=== PATIENT | male | born 1975 | race Caucasian/White ===

== ENCOUNTER 2020-12-27 17:52 | Emergency (ER) | payer OTHER, SELFPAY ==
--- NOTE | ~2020-12-27 | XR_ITS ---
EXAMINATION: XR FOOT, RIGHT CLINICAL INFORMATION: Question of osteomyelitis COMPARISON: None TECHNIQUE: AP, lateral, and oblique views of the right foot. FINDINGS: Mild hallux valgus is present. Vascular calcifications are seen. Some minimal degenerative changes are present in the midfoot. No bony destructive areas are seen to suggest the presence of osteomyelitis. XR/XR foot RT min 3V IMPRESSION: No evidence of osteomyelitis.
[2020-12-27 18:14] VITALS: BP 132/78; BP 158/93; PULSE 79; PULSE 89; RESP 18; TEMP 37.3; O2SAT 100; O2SAT 99; BMI 31.7
--- NOTE | 2020-12-27 19:42 | ED_ITS ---
HPI - Skin/Abscess/Foreign Bdy General Chief complaint: Skin/Abscess/Foreign Body Stated complaint: foot pain Time Seen by Provider: 12/27/20 18:26 History of Present Illness HPI narrative: Patient is a diabetic who noticed redness and some tenderness around the callus in his right foot, no fever no chills no other symptoms no injury, he has not seen a cabana attendant since COVID and this callus developed over the last year but the redness over the last 2-3 days, no fever no chills no join t pains Related Data Previous Rx's Medication Instructions Recorded cefuroxime axetil 500 mg PO Q12H 7 Days #14 tab 12/27/20 doxycycline hyclate 100 mg PO BID 7 Days #14 cap 12/27/20 Allergies Allergy/AdvReac Type Severity Reaction Status Date / Time amoxicillin [AMOXICILLIN] Allergy Severe ANAPHYLAXIS Verified 12/27/20 20:19 acetaminophen [From TYLOX] Allergy Intermediate ITCHING Verified 12/27/20 20:19 hydrocodone [HYDROCODONE] Allergy Unknown UNKNOWN Verified 12/27/20 20:19 From TYLOX Allergy Intermediate ITCHING Uncoded 06/17/20 16:22 Review of Systems Review of Systems: Positive for right foot redness and the right foot callus Negatives are no fever no chills no dizziness no weakness no confusion no headache no shortness of breath no joint pains no no weakness no foreign body no injury PMFSH Past Medical History Source: nursing notes reviewed Medical History (Updated 12/28/20 @ 00:01 by Malvin Nguyen) Anxiety Diabetes type 2, controlled High cholesterol HTN (hypertension) Right foot infection Social History Social History Smoking Status: Current every day smoker Substance Use Type: Marijuana Physical Exam Vital Signs: Vital Signs: Last Vital Signs Temp 99.2 F 12/27/20 18:14 Pulse 72 12/27/20 20:23 Resp 16 12/27/20 20:23 BP 110/68 12/27/20 20:23 Pulse Ox 98 12/27/20 20:23 Body Mass Index 31.7 General appearance is no acute distress relaxed and cooperative Head is normocephalic atraumatic The neck is supple Respiratory no distress Exam of the right foot on the plantar forefoot there is a hard callus which is surrounded by erythema, the skin is otherwise intact the skin is red and warm and tender to the touch there is no discharge or fluctuance no evidence of abscess, there is no lymphangitis, range of motion is normal in all the toes and in the ankle, no joint swelling Course Course Course Narrative: X-ray show no evidence of gas or osteomyelitis or bony injury or destruction Patient is referred to wound clinic and started on antibiotics for cellulitis and will follow-up in 2-3 days with us here in the ER or wound clinic Discharge Plan Discharge Clinical Impression: Cellulitis Patient Disposition: Home, Self-Care Additional Instructions: Use antibiotic as directed Return in 2-3 days for a wound check Best plan is try to follow with Wound Clinic but if they are not available follow with your doctor in 3 days or return to the ER in 2-3 days for recheck Return to the ER immediately any time for spreading redness, worse pain and swelling, fever, any sign of worsening infection or any concerns Take probiotics with antibiotics to prevent antibiotic associated diarrhea Prescriptions: New cefuroxime axetil 500 mg tablet 500 mg PO Q12H 7 Days Qty: 14 RF: 0 doxycycline hyclate 100 mg capsule 100 mg PO BID 7 Days Qty: 14 RF: 0 Referrals: Phuong Ray PA [Physician [employer]] - 2 days (Diabetic with infected foot wound) Interventions: ED Discharge Assessment Last Done: 12/27/20 21:04 Discharge Date/Time: 12/27/20 21:06
[2020-12-27 20:23] VITALS: BP 110/68; PULSE 72; RESP 16; O2SAT 98
== END 2020-12-27 21:06 | disposition home or self-care (01) ==
PROVIDERS: Emergency Provider Emergency Medicine Emergency Medical Services; PCP Physician Assistant Medical
DX: L03.115 Cellulitis of right lower limb (principal); M79.671 Pain in right foot; E11.9 Type 2 diabetes mellitus without complications; E78.5 Hyperlipidemia, unspecified; I10 Essential (primary) hypertension; F17.200 Nicotine dependence, unspecified, uncomplicated; F12.90 Cannabis use, unspecified, uncomplicated
CPT/HCPCS: 73630; 99283; 99284

== ENCOUNTER 2021-01-04 13:12 | Outpatient (RCR) | payer OTHER, SELFPAY | END 2021-02-03 11:25 | disposition home or self-care (01) | LOC: HO.WCC 13:12 | PROVIDERS: Visit Provider Physician Assistant | DX: Z09 Encounter for follow-up examination after completed treatment for conditions other than malignant neoplasm (principal); E11.65 Type 2 diabetes mellitus with hyperglycemia; E11.51 Type 2 diabetes mellitus with diabetic peripheral angiopathy without gangrene; F17.210 Nicotine dependence, cigarettes, uncomplicated; Z86.31 Personal history of diabetic foot ulcer | CPT/HCPCS: 11042; 87071; 87147; 87205; 97597; 99202; 99212 ==

== ENCOUNTER 2021-01-12 10:49 | Emergency (ER) | payer OTHER, SELFPAY ==
--- NOTE | ~2021-01-12 | US_ITS ---
EXAMINATION: ULTRASOUND EXPLAIN NONVASCULAR. CLINICAL INFORMATION: Left calf pain, heard a pop COMPARISON: None TECHNIQUE: Left limited imaging of left lower extremity veins are performed. Patient declined DVT study. FINDINGS: No focal abnormality seen involving the left lower extremity veins. Imaging through the left popliteal fossa in the left calf reveals no significant abnormality. US/US extremity nonvascular pedersen IMPRESSION: Patient declined DVT study. Limited imaging through the left popliteal fossa and calf reveals no soft tissue abnormality. The veins appear patent.
[2021-01-12 11:58] VITALS: BP 91/72; PULSE 76; RESP 20; TEMP 36; O2SAT 97; BMI 31.0
[2021-01-12] MEDS: Cyclobenzaprine HCl 10 MG TABLET PO (13:35)
[2021-01-12] MEDS: Ibuprofen 800 MG TABLET PO (13:36)
[2021-01-12 13:52] LABS: Glucose Urine UA NEG (NEG); Leukocyte Esterase Urine NEG (NEG); Nitrite Urine NEG (NEG); PH 5.5 (5.0-8.0); Specific Gravity - Urine 1.025 (1.005-1.025); Urine Blood NEG (NEG); Urine Ketones NEG (NEG); Urine Protein NEG (NEG-TRACE)
[2021-01-12 13:55] LABS: Appearance Urine CLEAR; Color Urine YELLOW
--- NOTE | 2021-01-12 14:00 | ED_ITS ---
HPI - Extremity Problem General Chief complaint: Extremity Injury, Lower Stated complaint: FALL W/LEFT LEG PAIN Time Seen by Provider: 01/12/21 11:25 Source: patient Mode of arrival: ambulatory Limitations: no limitations History of Present Illness HPI Narrative: 46-year-old male presenting to the ED with complaints of left calf pain he reports ?I heard a pop? when I was walking on the stairs and since then eyes is been having pain. He also reports a separate complaints of foul- smelling urine. He denies any fevers, chills, abdominal pain, back pain, hematuria, increased urinary urgency/frequency, polyuria, polydipsia or abnormal penile discharge. Reports that he does not want to be tested for any STDs due to he has not been sexually active in over 20 years. Denies any recent travel, immobilization, estrogen usage, history of cancer, recent surgery, IV drug use. Patient denies any dizziness, lightheadedness, chest pain, shortness of breath, palpitations or lower extremity edema. MD Complaint: extremity pain Onset (ago): minute(s) (Prior to arrival) Pain Consistency: constant Location: left Quality: aching, dull and constant Radiation: none Relieving factors: nothing Exacerbating factors: weight bearing, walking and palpation Associated symptoms: denies other symptoms Related Data Previous Rx's Medication Instructions Recorded cefuroxime axetil 500 mg PO Q12H 7 Days #14 tab 12/27/20 doxycycline hyclate 100 mg PO BID 7 Days #14 cap 12/27/20 cyclobenzaprine 10 mg PO Q8H #10 tab 01/12/21 ibuprofen 800 mg PO Q8H PRN #14 tab 01/12/21 Allergies Allergy/AdvReac Type Severity Reaction Status Date / Time amoxicillin [AMOXICILLIN] Allergy Severe ANAPHYLAXIS Verified 12/27/20 20:19 acetaminophen [From TYLOX] Allergy Intermediate ITCHING Verified 12/27/20 20:19 hydrocodone [HYDROCODONE] Allergy Unknown UNKNOWN Verified 12/27/20 20:19 From TYLOX Allergy Intermediate ITCHING Uncoded 06/17/20 16:22 Review of Systems Review of Systems: Constitutional : No Weight loss, No Fever, No Chills, No Night Sweats, No Fatigue, No Malaise ENT/Mouth : No Hearing loss, No Ear Pain, No Nasal Congestion, No Sinus Pain, No Hoarseness, No sore throat, No Rhinorrhea, No Swallowing Difficulty Eyes: No Eye Pain, No Swelling, No Redness, No Foreign Body, No Discharge, No Vision Changes Cardiovascular : No Chest Pain, No SOB, No Dyspnea on Exertion, No Orthopnea, No Edema, No Palpitations Respiratory : No Cough, No Sputum, No Wheezing, No Smoke Exposure, No Dyspnea Gastrointestinal : No Nausea, No Vomiting, No Diarrhea, No Constipation, No abdominal Pain, No Hematochezia, No Melena Genitourinary : + Fourl smelling urine, no irregular bleeding, No Dysuria, No Urinary Frequency, No Hematuria, No Urinary Incontinence, No Urgency, No Flank Pain, No Urinary Flow Changes, No Hesitancy Musculoskeletal : + Left calf pain, No joint pain, No Myalgias, No Joint Swelling Skin : No Skin Lesions, No rash Neuro : No Weakness, No Numbness, No Paresthesias, No Loss of Consciousness, No Dizziness, No Headache Psych : No Anxiety/Panic, No Depression, No SI/HI/AH/VH, No Social Issues, Heme/Lymph: No Bruising, No Bleeding,No Lymphadenopathy Endocrine : No Polyuria, No Polydipsia, No Temperature Intolerance Yes all other systems are reviewed and are negative [facility] Past Medical History Attestation statement: The following information was validated with the patient. Medical History Anxiety Diabetes type 2, controlled High cholesterol HTN (hypertension) Right foot infection Social History Social History Smoking Status: Current every day smoker Substance Use Type: Marijuana Advance Directives: Yes Advance Directives Information Provided: No Advance Directives on File: No Physical Exam Vital Signs: Vital Signs: Last Vital Signs Temp 96.8 F 01/12/21 11:58 Pulse 76 01/12/21 11:58 Resp 20 01/12/21 11:58 BP 91/72 01/12/21 11:58 Pulse Ox 97 01/12/21 11:58 Body Mass Index 31.0 vital signs have been reviewed as normal and appeared to be correct. Blood pressure normal. Heart rate normal. Respiration rate normal. Temperature normal. Oxygen saturation normal. Appearance: Alert. Oriented X3. No acute distress. Head: Normal external exam. Normocephalic. Eyes: PERRLA. EOMI. Conjunctiva and sclera normal. Eyelids normal. ENT: Pharynx normal. Uvula midline. Moist mucous membranes. No trismus noted. No drooling noted. No muffled voice noted. Neck: Normal inspection. Neck supple. FROM. No adenopathy. No meningeal signs. CVS: Normal heart rate and rhythm. Heart sound normal. No murmurs noted. Pulses normal throughout. Respiratory: No respiratory distress. Painless inspiration. Breath sounds normal. No wheezes/rales/rhonchi noted. Chest nontender. No accessory muscle usage noted or decreased air movement noted. Abdomen: Soft and nontender. Nondistended. No guarding. No rigidity. Bowel sounds normal in all 4 quadrants. No distention noted. No organomegaly noted. No visible injury noted. No rebound tenderness. Negative Rovsing sign. Negative obturator's sign. Negative psoas sign. Negative Weber sign. Back: No CVA tenderness. Full range of motion noted. Skin: Skin warm and dry. Normal skin color. Normal skin turgor. No rashes/lesions/lacerations noted. Extremities: Patient with left calf tenderness. No pitting edema bilaterally. Otherwise all other Extremities exhibit normal range of motion and nontender. Negative Badillo's test. Patient's Achilles tendon is intact bilaterally. Neuro: Oriented X 3. No motor deficit. No sensory deficit. Reflexes normal. Vascular: Positive bilateral distal pedal pulses. Course Course Course Narrative: 46-year-old male presenting to the ED with complaints of left calf pain when walking on the stairs he heard a pop. Patient also reporting a separate complaint of foul-smelling urine. - he is refusing STD testing and is very adamant and rude about it starts screaming saying ?fuck you I do not have an STD . I tried to explain to him multiple times that he can have an untreated STD if he is having any foul- smelling urine and he is refusing therefore I told to follow-up with his primary care provider regarding this. Due to his UA was within normal limits. Ultrasound is negative for acute processes although patient declined DVT study. Will DC home with symptomatic treatment along with instructions to follow up with primary care provider. Patient understands agrees with this plan. MDM - Extremity (Nontraumatic) Lab Data Labs: Lab Results 01/12/21 Range/Units 13:39 Urine Color YELLOW Urine Appearance CLEAR Urine pH 5.5 (5.0-8.0) Ur Specific Crawford 1.025 (1.005-1.025) Urine Protein NEG (NEG-TRACE) MG/DL Urine Glucose (UA) NEG (NEG) MG/DL Urine Ketones NEG (NEG) MG/DL Urine Blood NEG (NEG) Urine Nitrite NEG (NEG) Ur Leukocyte Esterase NEG (NEG) Imaging Data Ultrasound of left lower extremity: Attestation: I personally reviewed and interpreted this imaging study as follows: Radiologist's impression: FINDINGS: No focal abnormality seen involving the left lower extremity veins. Imaging through the left popliteal fossa in the left calf reveals no significant abnormality. US/US extremity nonvascular pedersen IMPRESSION: Patient declined DVT study. Limited imaging through the left popliteal fossa and calf reveals no soft tissue abnormality. The veins appear patent. Discharge Plan Discharge Clinical Impression: Muscle spasm of right calf, Dysuria Patient Disposition: Home, Self-Care Instructions: Dysuria (ED), Muscle Spasm (ED) Additional Instructions: You reported you have foul-smelling urine although declined STD testing. I tried to explain to you that you could have an untreated STD from years ago even if your not sexually active at this time. Although you adamantly refused. Return if any new or worsening symptoms follow-up with her primary care provider. Prescriptions: New cyclobenzaprine 10 mg tablet 10 mg PO Q8H Qty: 10 RF: 0 ibuprofen 800 mg tablet 800 mg PO Q8H PRN (Reason: pain) Qty: 14 RF: 0 No Action cefuroxime axetil 500 mg tablet 500 mg PO Q12H 7 Days Qty: 14 RF: 0 doxycycline hyclate 100 mg capsule 100 mg PO BID 7 Days Qty: 14 RF: 0 Referrals: Physician,None [Primary Care Provider] - 2 days (Your PCP) Print Language: Bolivian
== END 2021-01-12 14:27 | disposition home or self-care (01) ==
PROVIDERS: Physician Assistant Medical; Emergency Provider Emergency Medicine Emergency Medical Services
DX: R30.0 Dysuria (principal); M62.831 Muscle spasm of calf; E11.9 Type 2 diabetes mellitus without complications; E78.5 Hyperlipidemia, unspecified; I10 Essential (primary) hypertension; F12.90 Cannabis use, unspecified, uncomplicated
CPT/HCPCS: 76882; 81003; 99284

== ENCOUNTER 2021-05-03 12:42 | Outpatient (RCR) | payer OTHER, SELFPAY | END 2021-05-03 14:07 | disposition home or self-care (01) | LOC: HO.WCC 12:42 | PROVIDERS: PCP Physician Assistant Medical; Visit Provider Physician Assistant | DX: E11.621 Type 2 diabetes mellitus with foot ulcer (principal); L97.529 Non-pressure chronic ulcer of other part of left foot with unspecified severity; E11.40 Type 2 diabetes mellitus with diabetic neuropathy, unspecified; L84 Corns and callosities; I10 Essential (primary) hypertension; F17.210 Nicotine dependence, cigarettes, uncomplicated | CPT/HCPCS: 99212 ==

== ENCOUNTER 2021-05-29 16:46 | Emergency (ER) | payer OTHER, SELFPAY ==
[2021-05-29 17:24] VITALS: BP 142/91; PULSE 73; RESP 16; TEMP 36.1; O2SAT 98; BMI 32.2
--- NOTE | 2021-05-29 18:50 | PC.NURSE ---
this patient in a wheelchair continues to push by the triage room yelling into triage stating I am going to jordan the shit out of this hospital , attempts to reason with the patient were unsuccessful. The patient is frustrated due to the wait to be seen. Patient also stated Let me guess, you have no staff, maybe you should just hire some more like everyplace else again, attempts to reason with the patient were unsuccessful.
--- NOTE | 2021-05-29 20:00 | ED.EXTPRO ---
HPI - Extremity Problem General Chief complaint: Extremity Problem Stated complaint: l foot bleeding Time Seen by Provider: 05/29/21 19:50 Source: patient Mode of arrival: ambulatory History of Present Illness HPI Narrative: 46-year-old male a past medical history of anxiety, diabetes, hyperlipidemia, hypertension, presenting to the ED complaining open blister to left foot since yesterday. Reports head callus to bottom of foot bed opened last night after walk. Noted area to be bleeding. Denies pain, numbness, tingling, weakness, fever Related Data Previous Rx's Medication Instructions Recorded cefuroxime axetil 500 mg tablet 500 mg PO Q12H 7 Days #14 tab 12/27/20 doxycycline hyclate 100 mg capsule 100 mg PO BID 7 Days #14 cap 12/27/20 cyclobenzaprine 10 mg tablet 10 mg PO Q8H #10 tab 01/12/21 ibuprofen 800 mg tablet 800 mg PO Q8H PRN #14 tab 01/12/21 Allergies Allergy/AdvReac Type Severity Reaction Status Date / Time amoxicillin [AMOXICILLIN] Allergy Severe ANAPHYLAXIS Verified 05/29/21 17:29 acetaminophen [From TYLOX] Allergy Intermediate ITCHING Verified 12/27/20 20:19 hydrocodone [HYDROCODONE] Allergy Unknown UNKNOWN Verified 05/29/21 17:29 From TYLOX Allergy Intermediate ITCHING Uncoded 06/17/20 16:22 Review of Systems Review of Systems: Constitutional: No Fever, No Chills ENT/Mouth: No Ear Pain, No sore throat Cardiovascular: No Chest Pain, No SOB Respiratory: No Cough Gastrointestinal: No Nausea, No Vomiting, No Abdominal pain Musculoskeletal: No joint pain, No Myalgias, No Joint Swelling Skin: + Skin Lesions, No rash Neuro: No Weakness, No Numbness, No Paresthesias Yes all other systems are reviewed and are negative Neurologic: Denies Sensory deficit (Neuro) [facility] Past Medical History Attestation statement: The following information was validated with the patient. Medical History Anxiety Diabetes type 2, controlled High cholesterol HTN (hypertension) Right foot infection Social History Social History Substance Use Type: Marijuana Advance Directives: No Advance Directives Information Provided: No Advance Directives on File: No Physical Exam Vital Signs: Vital Signs: Last Vital Signs Temp 97 F 05/29/21 17:24 Pulse 73 05/29/21 17:24 Resp 16 05/29/21 17:24 BP 142/91 H 05/29/21 17:24 Pulse Ox 98 05/29/21 17:24 Body Mass Index 32.2 Const: General: cooperative, healthy appearing and no acute distress Orientation/consciousness: patient oriented x3 Limitations: no limitations HENMT: Head: Yes normal to inspection Ears: hearing grossly normal bilaterally General nose exam: Normal external nose present Face and sinus: Yes normal facial exam Eyes: General: appearance normal, both eyes and all related structures EOM: EOMs intact bilaterally Neck: Neck: Yes normal visual inspection Resp: Effort & Inspection: normal respiratory effort and no respiratory distress Cardio: Rate: regular rate Peripheral pulses: dorsalis pedis present Skin: Other: Refer to image above. Open blister/wound. Nontender. No active bleeding. No fluctuance/induration. No streaking. Rashes: no rashes Neuro: General: patient oriented x3 Gait exam (Neuro): Normal gait present Sensory Exam: No Sensory deficit (Neuro) Extrem: General: Yes normal to inspection MDM - Extremity (Nontraumatic) MDM Narrative Medical decision making narrative: 46-year-old male a past medical history of anxiety, diabetes, hyperlipidemia, hypertension, presenting to the ED complaining open blister to left foot since yesterday. On exam VSS, NAD, physical exam as above, refer to image. No evidence of active infection. Dressed wound with Xerform, nonstick/bulky dressing and Jaylen wrap. Discussed with patient he needs to follow-up with [facility], he verbalized understanding Discharge Plan Discharge Clinical Impression: Blister of left foot without infection Qualifiers: Encounter type: initial encounter Qualified Code(s): S90.822A - Blister (nonthermal), left foot, initial encounter Patient Disposition: Home, Self-Care Instructions: Blister (ED) Additional Instructions: Do not remove Xerfoform/yellow dressing, but change other dressing every other day If area begins to look infected, red, there is drainage, or fever please return to the ED Please follow-up with wound clinic Call tomorrow to make an appointment Prescriptions: No Action cyclobenzaprine 10 mg tablet 10 mg PO Q8H Qty: 10 RF: 0 ibuprofen 800 mg tablet 800 mg PO Q8H PRN (Reason: pain) Qty: 14 RF: 0 cefuroxime axetil 500 mg tablet 500 mg PO Q12H 7 Days Qty: 14 RF: 0 doxycycline hyclate 100 mg capsule 100 mg PO BID 7 Days Qty: 14 RF: 0 Referrals: [facility] [place] [facility] [Provider Group] - 2 days
--- NOTE | 2021-05-29 20:02 | PC.NURSE ---
PT HAD XEROFORM DSD APPLIED WITH NON STICK AND APPIED WITH DSD.
== END 2021-05-29 20:23 | disposition home or self-care (01) ==
PROVIDERS: Emergency Provider Internal Medicine; PCP Physician Assistant Medical
DX: L84 Corns and callosities (principal); F41.9 Anxiety disorder, unspecified; E11.9 Type 2 diabetes mellitus without complications; I10 Essential (primary) hypertension; E78.5 Hyperlipidemia, unspecified; F12.90 Cannabis use, unspecified, uncomplicated; Z79.899 Other long term (current) drug therapy
CPT/HCPCS: 99283

== ENCOUNTER 2021-08-24 16:14 | Outpatient (REF) | payer OTHER, SELFPAY | END 2021-08-24 16:15 | disposition home or self-care (01) | LOC: HO.LNP 16:14 | PROVIDERS: Visit Provider Surgery | DX: S91.301A Unspecified open wound, right foot, initial encounter (principal) | CPT/HCPCS: 87071; 87205 ==

== ENCOUNTER 2021-09-22 12:00 | Outpatient (REF) | payer OTHER, SELFPAY ==
--- NOTE | ~2021-09-22 | XR_ITS ---
EXAMINATION: XR FOOT, RIGHT CLINICAL INFORMATION: Right foot attention 5th digit. Wounds. Question osteomyelitis. COMPARISON: 12/27/2020 TECHNIQUE: AP, lateral, and oblique views of the right foot. FINDINGS: There is a soft tissue laceration at the lateral margin of the 5th metatarsal head with surrounding soft tissue swelling. No fracture or malalignment. No radiographic findings of underlying osteomyelitis. Small enthesopathic spur is present at the Achilles tendon insertion on the calcaneus. Calcific atherosclerosis is noted in the foot. XR/XR foot RT min 3V IMPRESSION: Soft tissue wound at the lateral margin of the 5th metatarsal head without radiographic evidence of underlying osteomyelitis.
== END 2021-09-22 12:01 | disposition home or self-care (01) ==
LOC: HO.XRAY 12:00
PROVIDERS: Visit Provider Surgery
DX: S91.105D Unspecified open wound of left lesser toe(s) without damage to nail, subsequent encounter (principal)
CPT/HCPCS: 73630

== ENCOUNTER 2021-11-03 10:14 | Emergency (ER) | payer OTHER, SELFPAY ==
--- NOTE | ~2021-11-03 | XR_ITS ---
EXAMINATION: XR CHEST CLINICAL INFORMATION: Fever COMPARISON: July 23, 2019 TECHNIQUE: 2 views of the chest were obtained. FINDINGS: There are a few faint regions of parenchymal density seen bilaterally in the mid to lower lung zones. No definite confluent pneumonitis is seen. No pneumothorax or pleural effusion. Heart normal size. No evidence of pulmonary edema. XR/XR chest 2V IMPRESSION: Few faint regions of density which may be related to atelectasis or interstitial disease without confluent pneumonitis identified.
--- NOTE | ~2021-11-03 | XR_ITS ---
EXAMINATION: XR FOOT, LEFT CLINICAL INFORMATION: Wound on plantar surface of heel. Rule out osteomyelitis. COMPARISON: None TECHNIQUE: AP, lateral, and oblique views of the left foot. FINDINGS: Bones of the midfoot are well aligned. No tarsal, metatarsal or phalangeal fracture. Mild degenerative changes of the distal foot. No focal soft tissue swelling. Mild vascular calcifications. XR/XR foot LT 2V IMPRESSION: No radiographic evidence to suggest osteomyelitis.
[2021-11-03 10:23] VITALS: BP 163/69; PULSE 120; RESP 22; TEMP 37.9; O2SAT 99; BMI 31.7
--- NOTE | 2021-11-03 10:51 | ECG_ITS ---
Test Reason : Infection Blood Pressure : / mmHG Vent. Rate : 106 BPM Atrial Rate : 106 BPM P-R Int : 124 ms QRS Dur : 084 ms QT Int : 314 ms P-R-T Axes : 048 -80 033 degrees QTc Int : 417 ms Sinus tachycardia Low voltage QRS Anterolateral infarct , age undetermined Abnormal ECG When compared with ECG of 23-JUL-2019 01:39, Significant changes have occurred Referred By: Tiffanie Ambrocio Electronically Signed By:ESTELA ALSTON
--- NOTE | 2021-11-03 10:54 | ED_ITS ---
HPI - Wound/Laceration General Chief Complaint: Wound/Laceration Stated Complaint: Foot wound Time Seen by Provider: 11/03/21 10:43 Source: patient Mode of arrival: ambulatory Limitations: no limitations History of Present Illness HPI narrative: 46-year-old male a past medical history of anxiety, diabetes, hyperlipidemia, hypertension here with reports of wound to the left foot which has been chronic and he has been followed by wound care for this. He tells me last /sunday he had some burning and pain in his left foot with increased redness/warmth. He called wound care but has not heard back. Over the weekend the symptoms of pain, burning, warmth and redness improved. Yesterday afternoon started to have chills, fever (up to 100.4) and this morning one episode of vomiting. No cough, shortness of breath, diarrhea, abdominal pain, urinary symptoms. Related Data Previous Rx's Medication Instructions Recorded cefuroxime axetil 500 mg tablet 500 mg PO Q12H 7 Days #14 tab 12/27/20 doxycycline hyclate 100 mg capsule 100 mg PO BID 7 Days #14 cap 12/27/20 cyclobenzaprine 10 mg tablet 10 mg PO Q8H #10 tab 01/12/21 ibuprofen 800 mg tablet 800 mg PO Q8H PRN #14 tab 01/12/21 doxycycline monohydrate 100 mg 100 mg PO BID #20 tab 11/03/21 tablet Allergies Allergy/AdvReac Type Severity Reaction Status Date / Time amoxicillin Allergy Severe ANAPHYLAXIS Verified 05/29/21 17:29 [AMOXICILLIN] acetaminophen Allergy Intermediate ITCHING Verified 12/27/20 20:19 [From TYLOX] hydrocodone Allergy Unknown UNKNOWN Verified 05/29/21 17:29 [HYDROCODONE] From TYLOX Allergy Intermediate ITCHING Uncoded 06/17/20 16:22 Review of Systems Verdana 4l Review of Systems: Yes all other systems are reviewed and Verdana 4d are negative Verdana 4l Constitutional: Verdana 4d Constitutional: Verdana 4d Verdana 4d Reports no additional constitutional complaints, Denies body ache(s), Reports chills, Reports fever(s), Denies headache(s) and Denies weakness Verdana 4l Eyes: Verdana 4d Verdana 4d Eyes: Verdana 4d Reports no additional eye complaints and Denies change in vision Verdana 4l ENT: Verdana 4d Reports system reviewed and no additional complaints, except as documented, Denies dizziness, Denies headache(s), Denies nasal congestion, Denies nasal discharge and Denies neck pain Verdana 4l Cardiovascular: Verdana 4d Cardiovascular: Verdana 4d Verdana 4d Reports no additional cardiovascular complaints, Denies chest pain, Denies leg edema and Denies dyspnea Verdana 4l Respiratory: Verdana 4d Verdana 4d Respiratory: Verdana 4d Reports no additional respiratory complaints, Denies cough and Denies dyspnea Verdana 4l Gastrointestinal: Verdana 4d Gastrointestinal: Verdana 4d Verdana 4d Reports no additional gastrointestinal complaints, Denies abdominal pain, Denies diarrhea, Reports nausea and Reports vomiting Verdana 4l Genitourinary: Verdana 4d Verdana 4d Genitourinary: Verdana 4d Denies urinary incontinence Verdana 4l Musculoskeletal: Verdana 4d Musculoskeletal: Verdana 4d Verdana 4d Reports no additional musculoskeletal complaints, Denies back pain, Denies arthralgias, Denies joint swelling, Denies neck pain, Denies numbness and Denies tingling Verdana 4l Integumentary/Breasts: Verdana 4d Skin/Breast: Verdana 4d Verdana 4d Reports system reviewed and no additional complaints, except as docu and Denies rash Verdana 4l Neurologic: Verdana 4d Reports system reviewed and no additional complaints, except as documented, Denies Abnormal speech present, Denies dizziness, Denies headache(s), Denies numbness, Denies tingling and Denies weakness PMFSH Past Medical History Attestation statement: The following information was validated with the patient. Source: old records reviewed and nursing notes reviewed Medical History Anxiety Diabetes type 2, controlled High cholesterol HTN (hypertension) Right foot infection Social History Social History Alcohol intake: never Patient Tobacco Use Status: Current everyday Tobacco user Use of substances other than those prescribed or required for medical reasons: Yes Substance Use Type: Marijuana Advance Directives: No Advance Directives Information Provided: No Physical Exam Verdana 4l Vital Signs: Verdana 4d Verdana 4d Vital Signs: Verdana 4d Verdana 4Bd Last Vital Signs Verdana 4d Cribbing Setter New 4d Cribbing Setter New 4d Temp 100.1 F 11/03/21 10:58 Cribbing Setter New 4d Pulse 105 H 11/03/21 10:58 Cribbing Setter New 4d Resp 19 11/03/21 10:58 BP 108/69 11/03/21 10:58 Pulse Ox 97 11/03/21 10:58 BMI result Body Mass Index 31.7 Const: General: comfortable, alert and anxious Orientation/consciousness: patient oriented x3 Limitations: no limitations HENMT: Head: Yes normal to inspection Ears: hearing grossly normal bilaterally and TM normal on the right General nose exam: Normal external nose present Face and sinus: Yes normal facial exam Mouth: Normal oral and palatal mucosa present Throat: Yes posterior oropharynx normal, Yes tonsils normal and Yes uvula midline Eyes: General: appearance normal, both eyes and all related structures Pupils: Equal, round and reactive pupils present Neck: Neck: Yes normal visual inspection, Yes full ROM, Yes no lymphadenopathy and Yes no meningeal signs Chest: Chest palpation & inspection: normal inspection of the chest Resp: Effort & Inspection: normal respiratory effort Auscultation: clear to auscultation bilaterally Cardio: Rate: regular rate Rhythm: regular rhythm Peripheral pulses: Peripheral pulses 2+ throughout GI: Inspection: Yes normal to inspection Palpation (GI): Soft to palpation and nontender Auscultation: normal bowel sounds Back/Spine/Pelvis: Thoracic/Lumbar Spine: thoracic and lumbar spine normal to inspection Skin: General skin exam: no rashes or lesions noted Neuro: General: patient oriented x3, no meningeal signs, no focal motor deficits and normal sensation to monofilament Cranial nerves: Yes Equal, round and reactive pupils present Cognition (Neuro): normal cognition Speech: No Abnormal speech present Gait exam (Neuro): Normal gait present Motor exam (neuro): 5/5 motor strength present throughout Extrem: Other: To the sole of the foot there is wound noted there is an area of approximately 5 cm that is circular and quite deep. There is surrounding erythema and tenderness. No expressible drainage or fluctuance noted There is warmth over the dorsal aspect with no redness/swelling. +NV intact distally. General: Yes normal to inspection Course Course Course Narrative: 46-year-old male who has a history of diabetes with a known wound to the left foot here with reports of fevers, chills and vomiting since last night. Patient tells me the last week he did have some increased redness, warmth and pain to his foot but this seemed to improve over the weekend. On arrival the patient is complaining of some nausea, heartburn, and feeling lightheaded. Wound noted to the sole of the left foot with slight warmth. No fluctuance, drainage. +odor. Will check labs including blood cultures, lactic acid, UA, CXR, COVID screen, x- ray left foot 1155-Pt intermittently refusing care (i.e. x-ray left foot, urine sample) and h e is aware he may have underlying osteomyelitis 1230-I went to speak to the patient. He did eventually agreed to have the x-ray of the left foot. At this time I do not have the results. I explained to the patient as he is a febrile, tachycardic with an obvious wound on the left foot that I am concerned that he may have a deeper infection or even osteomyelitis of the left foot. I feel like it would be best for the patient to be admitted for IV antibiotics and possible MRI of the left foot. The patient is quite agitated. He states, I will not be admitted because my fucking family won't visit me. I explained to the patient that if he requires it they could set him up with a PICC line and IV antibiotics at home as he tells me he would rather be at home. I told him that we could not set up this service from the emergency department. We discussed admission at length but ultimately the patient declined admission. [facility] and so I recommended that he call them for follow-up as they could also facilitate him having an MRI or IV antibiotics if he requires this. On discharge he is quite agitated and angry and ultimately he decided to leave against medical advice. I did explain to the patient that this could result in worsening infection, sepsis, loss of limb or life. Patient tells me he would like to go. He is welcome to return at any time. MDM - Wound/Laceration Medical Records Attestation: I reviewed the patient's medical records. Lab Data Attestation: I reviewed the patient's lab results. Result diagrams: 11/03/21 11:23 11/03/21 11:24 Labs: Lab Results 11/03/21 11/03/21 11/03/21 Range/Units 11:23 11:24 11:24 WBC 10.7 (4.8-10.8) X10*3/uL RBC 6.06 H (4.60-5.80) X10*6/uL Hgb 18.1 H (14.0-18.0) g/dl Hct 51.9 (42.0-52.0) % MCV 85.6 (80.0-98.0) fL MCH 29.9 (27.0-33.0) pg MCHC 34.9 (31.0-36.0) g/dl RDW 14.1 (11.0-16.0) % Plt Count 207 (160-400) X10*3/uL MPV 9.1 L (9.4-12.4) fL Immature Gran % (Auto) 0.6 H (0.0-0.4) % Neut % (Auto) 94.9 H (45-73) % Lymph % (Auto) 2.1 L (20-40) % [place] % (Auto) 2.1 (2-11) % Eos % (Auto) 0.0 (0-4) % Baso % (Auto) 0.3 (0-2) % Lymph # (Auto) 0.2 L (1.2-4.9) X10*3/uL [place] # (Auto) 0.2 (0.1-1.2) X10*3/uL Eos # (Auto) 0.0 (0.0-0.4) X10*3/uL Baso # (Auto) 0.0 (0.0-0.2) X10*3/uL Abs Immat Gran (auto) 0.06 H (0.00-0.03) X10*3/uL Absolute Neuts (auto) 10.2 H (2.0-8.3) x10*3/uL Absolute Nucleated RBC 0.000 (0.0-0.012) X10*3/uL Nucleated RBC % (auto) 0.0 (0.0-0.2) /100WBC Smear Tech's Comments VERIFIED ESR 8 (0-15) MM/HR Sodium 136 (135-145) mmol/L Potassium 4.6 (3.3-5.1) mmol/L Chloride 103 (96-108) mmol/L Carbon Dioxide 23 (22-29) mmol/L Anion Gap 15 (12-20) BUN 8 L (9-16) mg/dL Creatinine 1.00 (0.5-1.4) mg/dL Estim Creat Clear Calc 105.1 Estimated GFR > 60 Random Glucose 239 H (60-115) mg/dL Lactic Acid (0.5-2.0) mmol/L Calcium 9.0 (8.4-10.2) mg/dL Magnesium 1.8 (1.6-2.6) mg/dL Total Bilirubin 1.1 H (0.0-1.0) mg/dL Direct Bilirubin 0.5 (0.0-0.5) mg/dL AST 31 (5-37) U/L ALT 38 (0-40) U/L Alkaline Phosphatase 69 (39-117) U/L C-Reactive Protein 8.19 H (< or = 0.50) mg/dL Total Protein 6.6 (6.5-8.0) g/dL Albumin 4.0 (3.5-5.0) g/dL COVID-19 ([facility]) (Negative) COVID-19 Clin Com 11/03/21 11/03/21 Range/Units 11:24 11:27 WBC (4.8-10.8) X10*3/uL RBC (4.60-5.80) X10*6/uL Hgb (14.0-18.0) g/dl Hct (42.0-52.0) % MCV (80.0-98.0) fL MCH (27.0-33.0) pg MCHC (31.0-36.0) g/dl RDW (11.0-16.0) % Plt Count (160-400) X10*3/uL MPV (9.4-12.4) fL Immature Gran % (Auto) (0.0-0.4) % Neut % (Auto) (45-73) % Lymph % (Auto) (20-40) % [place] % (Auto) (2-11) % Eos % (Auto) (0-4) % Baso % (Auto) (0-2) % Lymph # (Auto) (1.2-4.9) X10*3/uL [place] # (Auto) (0.1-1.2) X10*3/uL Eos # (Auto) (0.0-0.4) X10*3/uL Baso # (Auto) (0.0-0.2) X10*3/uL Abs Immat Gran (auto) (0.00-0.03) X10*3/uL Absolute Neuts (auto) (2.0-8.3) x10*3/uL Absolute Nucleated RBC (0.0-0.012) X10*3/uL Nucleated RBC % (auto) (0.0-0.2) /100WBC Smear Tech's Comments ESR (0-15) MM/HR Sodium (135-145) mmol/L Potassium (3.3-5.1) mmol/L Chloride (96-108) mmol/L Carbon Dioxide (22-29) mmol/L Anion Gap (12-20) BUN (9-16) mg/dL Creatinine (0.5-1.4) mg/dL Estim Creat Clear Calc Estimated GFR Random Glucose (60-115) mg/dL Lactic Acid 2.0 (0.5-2.0) mmol/L Calcium (8.4-10.2) mg/dL Magnesium (1.6-2.6) mg/dL Total Bilirubin (0.0-1.0) mg/dL Direct Bilirubin (0.0-0.5) mg/dL AST (5-37) U/L ALT (0-40) U/L Alkaline Phosphatase (39-117) U/L C-Reactive Protein (< or = 0.50) mg/dL Total Protein (6.5-8.0) g/dL Albumin (3.5-5.0) g/dL COVID-19 ([facility]) Negative (Negative) COVID-19 Clin Com See Note Imaging Data Chest x-ray: Attestation: I personally reviewed and interpreted this imaging study as follows: Radiologist's impression: EXAMINATION: XR CHEST CLINICAL INFORMATION: Fever COMPARISON: July 23, 2019 TECHNIQUE: 2 views of the chest were obtained. FINDINGS: There are a few faint regions of parenchymal density seen bilaterally in the mid to lower lung zones. No definite confluent pneumonitis is seen. No pneumothorax or pleural effusion. Heart normal size. No evidence of pulmonary edema. XR/XR chest 2V IMPRESSION: Few faint regions of density which may be related to atelectasis or interstitial disease without confluent pneumonitis identified. foot x-ray: Attestation: I personally reviewed and interpreted this imaging study as follows: Radiologist's impression: EXAMINATION: XR FOOT, LEFT CLINICAL INFORMATION: Wound on plantar surface of heel. Rule out osteomyelitis.? COMPARISON: None? TECHNIQUE: AP, lateral, and oblique views of the left foot. FINDINGS: Bones of the midfoot are well aligned. No tarsal, metatarsal or phalangeal fracture. Mild degenerative changes of the distal foot. No focal soft tissue swelling. Mild vascular calcifications.? XR/XR foot LT 2V IMPRESSION: No radiographic evidence to suggest osteomyelitis. ECG Data Attestation: I personally reviewed and interpreted this ECG as follows: ECG interpretation date: 11/03/21 ECG interpretation time: 11:04 Interpretation: Sinus tachycardia with rate of 105, normal TX, normal QRS, normal QT Discharge Plan Discharge Clinical Impression: Cellulitis Patient Disposition: Left Against Medical Advice Instructions: Cellulitis (DC), Against Medical Advice (ED) Additional Instructions: It was recommended that you be admitted to the hospital that they may rule out osteomyelitis and give you IV antibiotics. You declined this. We also discussed that you can [facility] with [facility] to have an outpatient MRI ordered as well as long-term IV antibiotics. You may call them to set this up. You are welcome to return at any time Prescriptions: New doxycycline monohydrate 100 mg tablet 100 mg PO BID Qty: 20 0RF No Action cyclobenzaprine 10 mg tablet 10 mg PO Q8H Qty: 10 0RF ibuprofen 800 mg tablet 800 mg PO Q8H PRN (Reason: pain) Qty: 14 0RF cefuroxime axetil 500 mg tablet 500 mg PO Q12H 7 Days Qty: 14 0RF doxycycline hyclate 100 mg capsule 100 mg PO BID 7 Days Qty: 14 0RF Stand Alone Forms: Against Medical Advice Interventions: ED Discharge Assessment Last Done: 11/03/21 14:01 Discharge Date/Time: 11/03/21 14:01
[2021-11-03 10:58] VITALS: BP 108/69; PULSE 105; RESP 19; TEMP 37.8; O2SAT 97
[2021-11-03 11:33] LABS: Basophils Percent Auto 0.3 % (0-2); Hematocrit 51.9 % (42.0-52.0); Hemoglobin 18.1 g/dl (14.0-18.0); Imm Gran Abs Auto 0.06 X10*3/uL (0.00-0.03); Imm Gran Pct Auto 0.6 % (0.0-0.4); Lymphocytes Absolute Auto 0.2 X10*3/uL (1.2-4.9); Lymphocytes Percent Auto 2.1 % (20-40); MANUAL DIFF FLAG SCAN; Mean Corpuscular HGB Conc 34.9 g/dl (31.0-36.0); Mean Corpuscular Hemoglobin 29.9 pg (27.0-33.0); Mean Corpuscular Volume 85.6 fL (80.0-98.0); Mean Platelet Volume 9.1 fL (9.4-12.4); Monocytes Absolute Auto 0.2 X10*3/uL (0.1-1.2); Monocytes Percent Auto 2.1 % (2-11); Neutrophils Absolute Auto 10.2 x10*3/uL (2.0-8.3); Neutrophils Percent Auto 94.9 % (45-73); Platelet Count 207 X10*3/uL (160-400); Red Blood Count 6.06 X10*6/uL (4.60-5.80); Red Cell Distribution Width 14.1 % (11.0-16.0); SCAN SMEAR FLAG 1; White Blood Count 10.7 X10*3/uL (4.8-10.8)
[2021-11-03] MEDS: 0.9 % Sodium Chloride 1,000 ML 999 ML IV (11:51)
[2021-11-03] MEDS: Famotidine/PF 20 MG/2 ML VIAL IVPUSH (11:51)
[2021-11-03] MEDS: ondansetron HCL 4 MG/2 ML VIAL IVPUSH (11:52)
[2021-11-03 11:54] LABS: Alanine Aminotransferase 38 U/L (0-40); Alkaline Phosphatase 69 U/L (39-117); Anion Gap 15 (12-20); Aspartate Amino Transferase 31 U/L (5-37); Bilirubin Direct 0.5 mg/dL (0.0-0.5); Bilirubin Total 1.1 mg/dL (0.0-1.0); Blood Urea Nitrogen 8 mg/dL (9-16); C Reactive Protein 8.19 mg/dL (< or = 0.50); Carbon Dioxide 23 mmol/L (22-29); Chloride 103 mmol/L (96-108); Creatinine Clr Calc Pharmacy 105.1; Estimated Glomerular Filt Rate > 60; Glucose Random 239 mg/dL (60-115); Magnesium 1.8 mg/dL (1.6-2.6); Potassium 4.6 mmol/L (3.3-5.1); Sodium 136 mmol/L (135-145); Total Protein 6.6 g/dL (6.5-8.0)
[2021-11-03 11:59] LABS: COVID-19 Test Negative (Negative); IDNOW Serial# 55D5AD1C
[2021-11-03 12:12] LABS: Erythrocyte Sedimentation Rate 8 MM/HR (0-15)
[2021-11-03 12:18] LABS: SLIDE REVIEW VERIFIED
--- NOTE | 2021-11-04 12:00 | PC.NURSE ---
positive blood cultures reported from lab to this RN at this time., Dez BRAUN made aware
== END 2021-11-03 14:01 | disposition left against medical advice (07) ==
PROVIDERS: Nurse Practitioner Family; Emergency Provider Emergency Medicine
DX: L03.116 Cellulitis of left lower limb (principal); R78.81 Bacteremia; E11.621 Type 2 diabetes mellitus with foot ulcer; M79.672 Pain in left foot; R50.9 Fever, unspecified; R00.0 Tachycardia, unspecified; R45.1 Restlessness and agitation; R11.0 Nausea; Z20.822 Contact with and (suspected) exposure to COVID-19; E78.5 Hyperlipidemia, unspecified; I10 Essential (primary) hypertension; F41.9 Anxiety disorder, unspecified; F17.200 Nicotine dependence, unspecified, uncomplicated
CPT/HCPCS: 36415; 71046; 73620; 80048; 80076; 83605; 83735; 85025; 85652; 86140; 87040; 87077; 87147; 87186; 87205; 87635; 93005; 96361; 96374; 96375; 99284; J2405

== ENCOUNTER 2021-11-04 12:55 | Inpatient (IN) | payer OTHER, SELFPAY ==
--- NOTE | ~2021-11-04 | MR_ITS ---
EXAMINATION: MRI OF THE RIGHT FOOT WITH AND WITHOUT CONTRAST. CLINICAL INFORMATION: Diabetic foot infection. Rule out osteomyelitis. COMPARISON: Radiograph dated 09/22/2021 TECHNIQUE: Multiplanar MR imaging was obtained through the right foot on a 1.5 Zeynep magnet before and after intravenous administration of 10 mL Gadavist. FINDINGS: A superficial skin wound is likely present in the plantar/medial soft tissues at the forefoot and midfoot. There is associated skin thickening and intense underlying edema signal and enhancement in the subcutaneous fat. No discrete subcutaneous fluid collections are identified. Specifically, no peripherally enhancing abscesses are apparent. A more linear, longitudinal focus of contour abnormality is evident at the plantar aspect of the midfoot, possibly the result of prior surgery. A soft tissue ulceration in this region cannot be excluded. Similarly, the irregularity of the skin at the level of the fifth metatarsal head laterally raises the possibility of a skin wound in this region as well. There is associated underlying soft tissue edema signal at the lateral aspect of the forefoot as well. Bone marrow signal is normal throughout the forefoot and midfoot. No specific MR findings of osteomyelitis. There is minimal osteoarthritis of the first MTP joint as well as a few interphalangeal joints. Osteoarthritis of the subtalar joint is partially imaged on this study. There is fatty replacement of much of the intrinsic foot musculature with associated increased signal intensity in the remaining muscle fibers on T2-weighted images, consistent with chronic changes of diabetic neuropathy. Tendons appear intact. No discrete tendon tears or subluxation. No appreciable plantar plate tears. No Hassan's neuromas. MR/MR foot RT wo/w con IMPRESSION: Superficial skin wound at the medial/plantar aspect of the forefoot and midfoot without evidence of underlying osteomyelitis or abscess.
[2021-11-04 13:16] VITALS: BP 118/81; BP 99/65; PULSE 94; PULSE 98; RESP 18; TEMP 37.5; O2SAT 96; O2SAT 98; BMI 31.9
--- NOTE | 2021-11-04 13:21 | ED_ITS ---
HPI - Skin/Abscess/Foreign Bdy General Chief complaint: Recheck/Abnormal Lab/Rx Stated complaint: NEEDS TX FOR BONE INFECTION PER EMS Time Seen by Provider: 11/04/21 13:07 Source: patient and old records reviewed Mode of arrival: EMS Limitations: no limitations History of Present Illness HPI narrative: febrile yesterday negative xray sent in for osteo workup seen in ED left AMA - called back due to 2/2 GCP in chains - area is more red and streaking up leg MD complaint: rash and other (2/2 Bcx from yesterday GPC in chains left AMA 2 doses of doxy) Onset (ago): day(s) (last Sunday) Tetanus up to date: yes Location: R foot Severity: moderate Quality: burning and constant Pain Consistency: constant Relieving factors: none Exacerbating factors: palpation and movement Context: other (chronic wound is managed at wound center - area getting worse) Associated symptoms: fever, chills and malaise Treatments prior to arrival: antibiotic (2 doses of doxycycline) Related Data Home Medications Medication Instructions Recorded Confirmed ascorbic acid (vitamin C) 1,000 mg 500 mg PO DAILY 11/04/21 11/04/21 tablet cholecalciferol (vitamin D3) 50 50 mcg PO DAILY 11/04/21 11/04/21 mcg (2,000 unit) capsule naproxen 375 mg tablet 375 mg PO BID PRN 11/04/21 11/04/21 Allergies Allergy/AdvReac Type Severity Reaction Status Date / Time amoxicillin Allergy Severe ANAPHYLAXIS Verified 05/29/21 17:29 [AMOXICILLIN] acetaminophen Allergy Intermediate ITCHING Verified 12/27/20 20:19 [From TYLOX] hydrocodone Allergy Unknown UNKNOWN Verified 05/29/21 17:29 [HYDROCODONE] From TYLOX Allergy Intermediate ITCHING Uncoded 06/17/20 16:22 Review of Systems Verdana 4l Review of Systems: Verdana 4d Verdana 4d Constitutional : pos Fever, pos Chills ENT/Mouth : No sore throat, No Rhinorrhea Eyes: No Eye Pain, No Swelling, No Redness Cardiovascular : No Chest Pain, No SOB Respiratory : No Cough, No Sputum Gastrointestinal : No Nausea, No Vomiting,, No Diarrhea, No abdominal Pain Genitourinary : No Dysuria, No Hematuria Musculoskeletal : No joint pain, No Myalgias, No Joint Swelling Skin : pos Skin Lesions, positive skin rash Neuro : No Weakness, No Numbness, No Headache Psych : No Anxiety, No Depression Heme/Lymph: No Bruising, No Bleeding,No Lymphadenopathy Endocrine : No Polyuria, No Polydipsia All other systems reviewed and are negative [facility] Past Medical History Attestation statement: The following information was validated with the patient. Medical History Anxiety Diabetes type 2, controlled High cholesterol HTN (hypertension) Right foot infection Social History Social History Alcohol intake: never Patient Tobacco Use Status: Never used Tobacco Use of substances other than those prescribed or required for medical reasons: No Substance Use Type: Marijuana Advance Directives: No Advance Directives Information Provided: No Physical Exam Verdana 4l Vital Signs: Verdana 4d Verdana 4d Vital Signs: Verdana 4d Verdana 4Bd Last Vital Signs Verdana 4d Store Clerk New 4d Store Clerk New 4d Temp 98.7 F 11/04/21 14:49 Store Clerk New 4d Pulse 78 11/04/21 14:49 Store Clerk New 4d Resp 14 11/04/21 14:49 BP 110/67 11/04/21 14:49 Pulse Ox 98 11/04/21 14:49 BMI result Body Mass Index 31.9 Appearance: Alert. Oriented X3. Mild acute distress. Anxious Eyes: Pupils equal, round and reactive to light. ENT: Pharynx normal. Neck: Normal inspection. Neck supple. CVS: Normal heart rate and rhythm. Pulses normal. Respiratory: No respiratory distress. Breath sounds normal. Abdomen: Soft and non-tender. Skin: Skin warm and dry. Normal skin color. Normal skin turgor. Extremities: No lower extremity edema. No calf ttp R foot callouses and cracks noted on MTP plantar surface thickened skin noted with ulcer - no abscess but erythema streaks onto dorsum of foot - hot to touch, lymphangitis up to mid calf Neuro: Oriented X 3. No motor deficit. No sensory deficit. Course Course Course Narrative: BP improved with 2L of fluids, IV antibiotics ordered MDM - Skin/Abscess/Foreign Bdy MDM Narrative Medical decision making narrative: 46 yo male with hx of anxiety, DM, HLD, HTN seen yesterday no osteo on xray left AMA - had fevers 100.5, elevated CRP - sent for evaluation of osteo. Took 2 doses of doxy at home. Currently area is more red with lymphangitis - IV levofloxacin/vancomycin ordered, repeat labs admit to hospitalist. Lab Data Result diagrams: 11/04/21 13:46 11/04/21 13:46 Labs: Lab Results 11/04/21 11/04/21 11/04/21 Range/Units 13:46 13:46 13:46 WBC 6.5 (4.8-10.8) X10*3/uL RBC 6.00 H (4.60-5.80) X10*6/uL Hgb 18.0 (14.0-18.0) g/dl Hct 51.8 (42.0-52.0) % MCV 86.3 (80.0-98.0) fL MCH 30.0 (27.0-33.0) pg MCHC 34.7 (31.0-36.0) g/dl RDW 14.2 (11.0-16.0) % Plt Count 172 (160-400) X10*3/uL MPV 9.3 L (9.4-12.4) fL Immature Gran % (Auto) 0.3 (0.0-0.4) % Neut % (Auto) 82.5 H (45-73) % Lymph % (Auto) 10.1 L (20-40) % [place] % (Auto) 6.6 (2-11) % Eos % (Auto) 0.0 (0-4) % Baso % (Auto) 0.5 (0-2) % Lymph # (Auto) 0.7 L (1.2-4.9) X10*3/uL [place] # (Auto) 0.4 (0.1-1.2) X10*3/uL Eos # (Auto) 0.0 (0.0-0.4) X10*3/uL Baso # (Auto) 0.0 (0.0-0.2) X10*3/uL Abs Immat Gran (auto) 0.02 (0.00-0.03) X10*3/uL Absolute Neuts (auto) 5.4 (2.0-8.3) x10*3/uL Absolute Nucleated RBC 0.000 (0.0-0.012) X10*3/uL Nucleated RBC % (auto) 0.0 (0.0-0.2) /100WBC ESR 7 (0-15) MM/HR Sodium 137 (135-145) mmol/L Potassium 4.3 (3.3-5.1) mmol/L Chloride 103 (96-108) mmol/L Carbon Dioxide 25 (22-29) mmol/L Anion Gap 13 (12-20) BUN 10 (9-16) mg/dL Creatinine 0.88 (0.5-1.4) mg/dL Estim Creat Clear Calc 119.8 Estimated GFR > 60 Random Glucose 181 H (60-115) mg/dL Estimat Average Glucose mg/dL Hemoglobin A1c % % Lactic Acid (0.5-2.0) mmol/L Calcium 9.2 (8.4-10.2) mg/dL Magnesium 1.6 (1.6-2.6) mg/dL Total Bilirubin 0.8 (0.0-1.0) mg/dL Direct Bilirubin 0.4 (0.0-0.5) mg/dL AST 47 H D (5-37) U/L ALT 61 H (0-40) U/L Alkaline Phosphatase 67 (39-117) U/L C-Reactive Protein 17.71 H (< or = 0.50) mg/dL Total Protein 6.3 L (6.5-8.0) g/dL Albumin 3.8 (3.5-5.0) g/dL COVID-19 ([facility]) (Negative) COVID-19 Clin Com 11/04/21 11/04/21 11/04/21 Range/Units 13:46 13:46 13:46 WBC (4.8-10.8) X10*3/uL RBC (4.60-5.80) X10*6/uL Hgb (14.0-18.0) g/dl Hct (42.0-52.0) % MCV (80.0-98.0) fL MCH (27.0-33.0) pg MCHC (31.0-36.0) g/dl RDW (11.0-16.0) % Plt Count (160-400) X10*3/uL MPV (9.4-12.4) fL Immature Gran % (Auto) (0.0-0.4) % Neut % (Auto) (45-73) % Lymph % (Auto) (20-40) % [place] % (Auto) (2-11) % Eos % (Auto) (0-4) % Baso % (Auto) (0-2) % Lymph # (Auto) (1.2-4.9) X10*3/uL [place] # (Auto) (0.1-1.2) X10*3/uL Eos # (Auto) (0.0-0.4) X10*3/uL Baso # (Auto) (0.0-0.2) X10*3/uL Abs Immat Gran (auto) (0.00-0.03) X10*3/uL Absolute Neuts (auto) (2.0-8.3) x10*3/uL Absolute Nucleated RBC (0.0-0.012) X10*3/uL Nucleated RBC % (auto) (0.0-0.2) /100WBC ESR (0-15) MM/HR Sodium (135-145) mmol/L Potassium (3.3-5.1) mmol/L Chloride (96-108) mmol/L Carbon Dioxide (22-29) mmol/L Anion Gap (12-20) BUN (9-16) mg/dL Creatinine (0.5-1.4) mg/dL Estim Creat Clear Calc Estimated GFR Random Glucose (60-115) mg/dL Estimat Average Glucose 197 mg/dL Hemoglobin A1c % 8.5 % Lactic Acid 2.2 H* (0.5-2.0) mmol/L Calcium (8.4-10.2) mg/dL Magnesium (1.6-2.6) mg/dL Total Bilirubin (0.0-1.0) mg/dL Direct Bilirubin (0.0-0.5) mg/dL AST (5-37) U/L ALT (0-40) U/L Alkaline Phosphatase (39-117) U/L C-Reactive Protein (< or = 0.50) mg/dL Total Protein (6.5-8.0) g/dL Albumin (3.5-5.0) g/dL COVID-19 ([facility]) Negative (Negative) COVID-19 Clin Com See Note Critical Care Time Critical Care Time Critical Care Time: Yes Total Critical Care Time: 35 Attestation: 2L of IVF ordered, review of records. I attest to this time spent taking care of the patient Discharge Plan Discharge Clinical Impression: Positive blood culture, Acidosis, lactic Cellulitis Qualifiers: Site of cellulitis: extremity Site of cellulitis of extremity: lower extremity Laterality: right Qualified Code(s): L03.115 - Cellulitis of right lower limb Patient Disposition: Admitted As Inpatient
--- NOTE | 2021-11-04 13:55 | PHA.MEDREC ---
Pharmacy Consult ? Medication Reconciliation Pharmacy has completed the medication reconciliation. No remarkable issues. Christelle Shha, KaminiD
[2021-11-04] MEDS: LORazepam 1 MG TABLET 2 MG PO (14:03)
[2021-11-04 14:05] LABS: Basophils Percent Auto 0.5 % (0-2); Hematocrit 51.8 % (42.0-52.0); Imm Gran Abs Auto 0.02 X10*3/uL (0.00-0.03); Imm Gran Pct Auto 0.3 % (0.0-0.4); Lymphocytes Absolute Auto 0.7 X10*3/uL (1.2-4.9); Lymphocytes Percent Auto 10.1 % (20-40); MANUAL DIFF FLAG NO; Mean Corpuscular HGB Conc 34.7 g/dl (31.0-36.0); Mean Corpuscular Volume 86.3 fL (80.0-98.0); Mean Platelet Volume 9.3 fL (9.4-12.4); Monocytes Absolute Auto 0.4 X10*3/uL (0.1-1.2); Monocytes Percent Auto 6.6 % (2-11); Neutrophils Absolute Auto 5.4 x10*3/uL (2.0-8.3); Neutrophils Percent Auto 82.5 % (45-73); Platelet Count 172 X10*3/uL (160-400); Red Cell Distribution Width 14.2 % (11.0-16.0); White Blood Count 6.5 X10*3/uL (4.8-10.8)
[2021-11-04] MEDS: 0.9 % Sodium Chloride 1,000 ML 999 ML IV ×2 (14:07→16:10)
[2021-11-04 14:21] LABS: COVID-19 Test Negative (Negative)
[2021-11-04 14:22] LABS: Lactic Acid 2.2 mmol/L (0.5-2.0)
[2021-11-04] MEDS: levoFLOXacin/D5W 500 MG/100 ML PIGGYBACK 100 MG IV (14:31)
[2021-11-04 14:33] LABS: Alanine Aminotransferase 61 U/L (0-40); Albumin Level 3.8 g/dL (3.5-5.0); Alkaline Phosphatase 67 U/L (39-117); Anion Gap 13 (12-20); Aspartate Amino Transferase 47 U/L (5-37); Bilirubin Direct 0.4 mg/dL (0.0-0.5); Bilirubin Total 0.8 mg/dL (0.0-1.0); Blood Urea Nitrogen 10 mg/dL (9-16); C Reactive Protein 17.71 mg/dL (< or = 0.50); Calcium 9.2 mg/dL (8.4-10.2); Carbon Dioxide 25 mmol/L (22-29); Chloride 103 mmol/L (96-108); Creatinine Clr Calc Pharmacy 119.8; Estimated Glomerular Filt Rate > 60; Glucose Random 181 mg/dL (60-115); Magnesium 1.6 mg/dL (1.6-2.6); Potassium 4.3 mmol/L (3.3-5.1); Sodium 137 mmol/L (135-145); Total Protein 6.3 g/dL (6.5-8.0)
[2021-11-04 14:49] VITALS: BP 110/67; PULSE 78; RESP 14; TEMP 37.1; O2SAT 98
[2021-11-04 14:49] LABS: Erythrocyte Sedimentation Rate 7 MM/HR (0-15)
--- NOTE | 2021-11-04 15:45 | P.HPHOSP_ITS ---
History of Present Illness Date of Service: 11/04/21 Chief Complaint: bacteremia 46 year-old man with DM2, HLD, HTN, anxiety, and PTSD who has been seen at the [facility] for chronic left foot wounds. He presented to the ED yesterday worsening burning pain with redness and warmth on the medial part of his left foot arch for approximately 1 week. He had fever to 100.4 with chills yesterday. He was tachypneic and tachycardic in the ED. L foot X-ray was negative for osteomyelitis. The patient was noted to have significant lymphangitic streaking proximal to the wound and admission for IV antibiotics a nd MRI to rule out osteomyelitis was recommended. However, the patient signed out against medical advice and was prescribed doxycycline, of which he took 2 doses. Later, his 2 blood cultures returned positive for Gram-positive cocci in chains and he was called back to the ED. In the ED, he was found to have lactate of 2.2 yesterday but SIRS physiology from yesterday had resolved. He was given 1 dose of vancomycin and 1 dose of levofloxacin as well as 2L of IV normal saline. Review of Systems Verdana 4l Review of Systems: Yes all other systems are reviewed and Verdana 4d are negative [facility] Medical History Anxiety Diabetes type 2, controlled High cholesterol HTN (hypertension) Right foot infection Pertinent family history: DM1 (not 2) Social History Alcohol intake: never Patient Tobacco Use Status: Never used Tobacco Use of substances other than those prescribed or required for medical reasons: No Substance Use Type: Marijuana Advance Directives: No Advance Directives Information Provided: No Meds Allergies Allergy/AdvReac Type Severity Reaction Status Date / Time amoxicillin Allergy Severe ANAPHYLAXIS Verified 05/29/21 17:29 [AMOXICILLIN] acetaminophen Allergy Intermediate ITCHING Verified 12/27/20 20:19 [From TYLOX] hydrocodone Allergy Unknown UNKNOWN Verified 05/29/21 17:29 [HYDROCODONE] From TYLOX Allergy Intermediate ITCHING Uncoded 06/17/20 16:22 Active Medications: Current Medications Enoxaparin Sodium (Enoxaparin Sodium 40 Mg/0.4 Ml Syringe) 40 mg SUBCUT Q24H IRISH Ondansetron HCl (Ondansetron Hcl 4 Mg/2 Ml Vial) 4 mg IVPUSH Q8H PRN PRN Reason: Nausea and Vomiting Oxycodone HCl (Oxycodone Hcl Immed Release 5 Mg Tablet) 5 mg PO Q6H PRN PRN Reason: Pain, Severe (Pain Scale 7-10) Pharmacy Consult (Consult Rx Perform Med Rec) 1 each MISCELLANE ONCE PRN PRN Reason: Consult order Sodium Chloride (0.9 % Sodium Chloride Flush 3 Ml Syringe) 3 ml IVFLUSH QSHIFT [facility] Home Medications Medication Instructions Recorded Confirmed Last Taken Type ascorbic acid 500 mg PO DAILY 11/04/21 11/04/21 Unknown History (vitamin C) 1,000 mg tablet cholecalciferol 50 mcg PO DAILY 11/04/21 11/04/21 Unknown History (vitamin D3) 50 mcg (2,000 unit) capsule naproxen 375 mg 375 mg PO BID 11/04/21 11/04/21 Unknown History tablet PRN Physical Exam Verdana 4l Vital Signs and Narrative: Verdana 4d Verdana 4d Vital Signs: Verdana 4d Verdana 4Bd Last Vital Signs Verdana 4d Furnace Combustion Tester New 4d Furnace Combustion Tester New 4d Temp 98.7 F 11/04/21 14:49 Furnace Combustion Tester New 4d Pulse 78 11/04/21 14:49 Furnace Combustion Tester New 4d Resp 14 11/04/21 14:49 BP 110/67 11/04/21 14:49 Pulse Ox 98 11/04/21 14:49 BMI result Body Mass Index 31.9 Gen: in no acute distress HEENT: sclera anicteric, moist mucus membranes Neck: supple Lungs: clear to auscultation bilaterally Heart: regular rate and rhythm, no murmurs Abd: soft, non-tender, non-distended Ext: no edema Skin: well-demarcated 5-6 cm area of erythema and warmth on the medial aspect of the right foot arch, with significant lymphangitic streaking. well-healed ulcers with callus on toes Neuro: alert and oriented x3, no focal findings Psych: appropriate affect Results Labs CBC and Chem 7: 11/04/21 13:46 11/04/21 13:46 Labs: Laboratory Results - last 24 hr 11/04/21 11/04/21 11/04/21 13:46 13:46 13:46 MCV 86.3 MCH 30.0 MCHC 34.7 RDW 14.2 Plt Count 172 MPV 9.3 L Immature Gran % (Auto) 0.3 Neut % (Auto) 82.5 H Lymph % (Auto) 10.1 L [place] % (Auto) 6.6 Eos % (Auto) 0.0 Baso % (Auto) 0.5 Lymph # (Auto) 0.7 L [place] # (Auto) 0.4 Eos # (Auto) 0.0 Baso # (Auto) 0.0 Abs Immat Gran (auto) 0.02 Absolute Neuts (auto) 5.4 Absolute Nucleated RBC 0.000 Nucleated RBC % (auto) 0.0 ESR 7 Anion Gap 13 Estim Creat Clear Calc 119.8 Estimated GFR > 60 Random Glucose 181 H Lactic Acid Calcium 9.2 Magnesium 1.6 Total Bilirubin 0.8 Direct Bilirubin 0.4 AST 47 H D ALT 61 H Alkaline Phosphatase 67 C-Reactive Protein 17.71 H Total Protein 6.3 L Albumin 3.8 COVID-19 ([facility]) COVID-19 [employer] Com 11/04/21 11/04/21 13:46 13:46 MCV MCH MCHC RDW Plt Count MPV Immature Gran % (Auto) Neut % (Auto) Lymph % (Auto) [place] % (Auto) Eos % (Auto) Baso % (Auto) Lymph # (Auto) [place] # (Auto) Eos # (Auto) Baso # (Auto) Abs Immat Gran (auto) Absolute Neuts (auto) Absolute Nucleated RBC Nucleated RBC % (auto) ESR Anion Gap Estim Creat Clear Calc Estimated GFR Random Glucose Lactic Acid 2.2 H* Calcium Magnesium Total Bilirubin Direct Bilirubin AST ALT Alkaline Phosphatase C-Reactive Protein Total Protein Albumin COVID-19 ([facility]) Negative COVID-19 Clin Com See Note L foot plain film (11/03/21) No radiographic evidence to suggest osteomyelitis. Assessment and Plan (1) Positive blood culture: Status: Acute (2) Cellulitis: Qualifiers: Laterality: right Site of cellulitis: extremity Site of cellulitis of extremity: lower extremity Qualified Code(s): L03.115 - Cellulitis of right l ower limb Status: Acute (3) Acidosis, lactic: Status: Acute Plan 46yo M with chronic but largely healed right foot wounds presenting with cellulitis of right foot with lymphangitic streaking, left AMA from ED yesterday but called back due to Gram-positive bacteremia # DM foot infection/cellulitis - admit to M/S, continue vanco + levo, follow BCx speciation/susceptibilities, follow surveillance BCx, TTE to r/o IE, ID consult, MRI to r/o osteomyelitis # lactic acidosis - recheck after IV hydration # DM2 - correction dose lispro, check A1c # anxiety - prn lorazepam # VTE ppx - LMWH # code - full Quality Stroke Does the patient have a stroke diagnosis?: No VTE Prior VTE?: No VTE Risk Level:: Medical - moderate - high VTE Device Contraindication: N/A - Device Ordered VTE Drug Contraindication: N/A - Med Ordered
[2021-11-04 16:02] LABS: Reflex Lactate? Lactic Acid Added
[2021-11-04 16:06] LABS: Estimated Average Glucose 197 mg/dL; Hemoglobin A1c % 8.5 %
[2021-11-04] MEDS: vancomycin HCL 1,250 MG in 0.9 % Sodium Chloride 250 ML 166.67 MG IV (16:22)
[2021-11-04 17:25] LABS: ~Lactic Acid-LAB USE ONLY 0.9 mmol/L (0.5-2.0)
[2021-11-04 18:00] VITALS: BP 121/79; PULSE 86; RESP 14; TEMP 36.6; O2SAT 98
--- NOTE | 2021-11-04 18:35 | PC.NURSE ---
Attempted to check POC blood glucose on pt at 1830. Pt refused to let this PCT use fingers for stick, directed this PCT to use pt's lower forearm instead. the blood drop from this stick was insufficient to test blood glucose, pt refused a second attempt, stated you guys don't know how to do it the way I do it, I'll have my daughter bring in my machine so I can do it myself .
--- NOTE | 2021-11-04 19:29 | PC.NURSE ---
I assumed care of this pt at 1900. At this time I entered his room to assess him and to introduce myself and to obtain a blood sugar and administer Lovenox and a nicotine patch. Immediately the pt was abrasive, insisting that people here can't do anything right. When i calmly asked him to elaborate, he could not, rather continued on about how he knows how to do things right and how people don't listen to him. I attempted to check his blood sugar. When i had difficulty, because the pt insisted that i obtain blood from his forearm, he pulled his arm away from me and put his blanket up over his head and said see, nobody knows what they're doing. I offered the pt Lovenox and he asked me to explain the indication for it. I explained this to him in great detail and he told me he had no clue what I was talking about, I've never once heard of that happening in a hospital. What is wrong with this place? At that point I informed the pt that I would be leaving the room since all he seemed interested in doing was disagreeing and arguing with. He did not reply and I left the room. While in the room the pt was alert, oriented x 3, without difficulty breathing.
[2021-11-04 20:45] VITALS: BP 105/66; PULSE 79; RESP 18; TEMP 36.4; O2SAT 97
[2021-11-04 21:11] LABS: Glucose, Whole Blood 191 mg/dL (60-115)
[2021-11-05] VITALS: BP 118/72; PULSE 73; RESP 16; TEMP 37.1; O2SAT 98
[2021-11-05] MEDS: vancomycin HCL 1,250 MG in 0.9 % Sodium Chloride 250 ML 166.67 MG IV ×2 (05:46→16:45)
[2021-11-05 06:45] LABS: Anion Gap 9 (12-20); Blood Urea Nitrogen 9 mg/dL (9-16); Calcium 8.6 mg/dL (8.4-10.2); Carbon Dioxide 27 mmol/L (22-29); Chloride 109 mmol/L (96-108); Estimated Glomerular Filt Rate > 60; Glucose Random 160 mg/dL (60-115); Sodium 141 mmol/L (135-145)
[2021-11-05 07:31] LABS: Glucose, Whole Blood 168 mg/dL (60-115)
--- NOTE | 2021-11-05 07:44 | PHA.PROG ---
Admission Date/Time: November 04, 2021 15:42 Indication: Bacteremia Weight in k.1 kg Adjusted body weight in Kg: [place] body weight in Kg: Obesity Dosing Indication % IBW: Serum Creatinine - Last 168 Hours 11/04/21 11/05/21 13:46 06:00 Creatinine 0.88 0.85 Estimated CrCl and GFR - Last 168 Hours 11/04/21 11/05/21 13:46 06:00 Estim Creat Clear Calc 119.8 124.0 Estimated GFR > 60 > 60 Vancomycin Loading Dose: 1250 mg Current Vancomycin Dosing Regimen: 1250 mg q12h Vancomycin Monitoring using AUC goal of 400 - 600 range with trough as surrogate marker: Estimating a AUC of 467 and a trough of 14.3 Date and Time for next Vancomycin Level to be drawn: Next trough to put pulled at 0400 on 11/06 Pharmacist Comments on Vancomycin Plan: Will continue to monitor renal function. Vancomycin dosing will take advantage of [employer] as a clinical decision support tool that uses Bayesian modeling to calculate individual patient's pharmacokinetic parameters and forecast the patient's drug concentration time course with the target goal AUC 24 range of 400 - 600 mg/L/hr.
[2021-11-05] MEDS: Nicotine 14 MG PATCH.TD24 TRANSDERMA (07:45)
[2021-11-05] MEDS: Cholecalciferol (Vitamin D3) 25 MCG TABLET 50 MCG PO (07:45)
[2021-11-05] MEDS: Ascorbic Acid 500 MG TABLET PO (07:46)
[2021-11-05] MEDS: 0.9 % Sodium Chloride Flush 3 ML SYRINGE IVFLUSH ×3 (07:47→19:12)
[2021-11-05] MEDS: LORazepam 1 MG TABLET PO (07:51)
--- NOTE | 2021-11-05 09:39 | MHC.CM.PN ---
PATIENT LIVES ALONE. HE HAS NO HCP ON FILE AND CURRENTLY NOT INTERESTED IN ASSIGNING ONE HIS DAUGHTER IS ONLY 16 AND SHE IS THE ONLY PERSON HE WOULD TRUST PATIENT RECEIVES MENTAL HEALTH SERVICES EVERY WEEK TO EVERY OTHER WEEK. HE ALSO VISITS THE [facility] AND HAS AN RN VISIT 3X/WEEK HE THINKS IT IS [facility] AND A REFERRAL IS PLACED TO DETERMINE PLAN WILL BE LT IV ABX. [facility] REFERRAL PLACED WELL
--- NOTE | 2021-11-05 10:34 | P.PNIM_ITS ---
Subjective Subjective Date of Service: 11/05/21 Interval History: Pt extremely rude/hostile and verbally abusive to staff including myself this am and as such physical exam not done. Pt refused fingerstick glucose and insulin. Unable to obtain ROS due to pt's dysregulation. Review of Systems Review of Systems: Yes Other Physical Exam Verdana 4l Vital Signs: Verdana 4d Verdana 4d Vital Signs: Verdana 4d Verdana 4Bd Last Vital Signs Verdana 4d Physical Laboratory Assistant New 4d Physical Laboratory Assistant New 4d Temp 98.7 F 11/05/21 00:00 Physical Laboratory Assistant New 4d Pulse 73 11/05/21 00:00 Physical Laboratory Assistant New 4d Resp 16 11/05/21 00:00 BP 118/72 11/05/21 00:00 Pulse Ox 98 11/05/21 00:00 BMI result Body Mass Index 31.9 see yesterday's examination; PE not done due to safety concerns Objective Data Active Medications Ascorbic Acid (Ascorbic Acid 500 Mg Tablet) 500 mg PO DAILY [facility] Last Admin: 11/05/21 07:46 Dose: 500 mg Documented by: JO Dextrose (Dextrose 50 % 25 Gm/50 Ml Syringe) 25 gm IVPUSH Q15M PRN; Protocol PRN Reason: per Hypoglycemia Standing Ord. Enoxaparin Sodium (Enoxaparin Sodium 40 Mg/0.4 Ml Syringe) 40 mg SUBCUT Q24H [facility] Last Admin: 11/04/21 19:35 Dose: Not Given Documented by: CHARU Non-Admin Reason: Patient Refused Glucose (Glucose Gel 15 Gm Gel..Gram.) 15 gm PO Q15M PRN; Protocol PRN Reason: per Hypoglycemia Standing Ord. Levofloxacin (Levaquin) 500 mg in 100 mls @ 100 mls/hr IV Q24H [facility] Vancomycin HCl 1,250 mg/ (Sodium Chloride) 250 mls @ 166.667 mls/hr IV Q12H [facility] Last Infusion: 11/05/21 07:52 Dose: 0 mls/hr Documented by: JO Insulin Human Lispro (Insulin Lispro 100 Unit/Ml 3 Ml Vial) 0 unit SUBCUT QIDACHS [facility]; Protocol Last Admin: 11/05/21 07:47 Dose: Not Given Documented by: JO Non-Admin Reason: Patient Refused Lorazepam (Lorazepam 1 Mg Tablet) 1 mg PO Q6H PRN PRN Reason: Anxiety Last Admin: 11/05/21 07:51 Dose: 1 mg Documented by: JO Nicotine (Nicotine 14 Mg Patch.Td24) 14 mg TRANSDERMA DAILY [facility] Last Admin: 11/05/21 07:45 Dose: 14 mg Documented by: JO Ondansetron HCl (Ondansetron Hcl 4 Mg/2 Ml Vial) 4 mg IVPUSH Q8H PRN PRN Reason: Nausea and Vomiting Oxycodone HCl (Oxycodone Hcl Immed Release 5 Mg Tablet) 5 mg PO Q6H PRN PRN Reason: Pain, Severe (Pain Scale 7-10) Pharmacy Consult (Consult Rx Perform Med Rec) 1 each MISCELLANE ONCE PRN PRN Reason: Consult order Pharmacy Consult (Consult Rx Vancomycin Dosing) 1 each MISCELLANE DAILY PRN PRN Reason: Consult order Sodium Chloride (0.9 % Sodium Chloride Flush 3 Ml Syringe) 3 ml IVFLUSH QSHIFT [facility] Last Admin: 11/05/21 07:47 Dose: 3 ml Documented by: JO Vitamin D (Cholecalciferol (Vitamin D3) 25 Mcg Tablet) 50 mcg PO DAILY [facility] Last Admin: 11/05/21 07:45 Dose: 50 mcg Documented by: JO Labs CBC & Chem 7: 11/04/21 13:46 11/05/21 06:00 Labs: Laboratory Results - last 24 hr 11/04/21 11/04/21 11/04/21 13:46 13:46 13:46 MCV 86.3 MCH 30.0 MCHC 34.7 RDW 14.2 Plt Count 172 MPV 9.3 L Immature Gran % (Auto) 0.3 Neut % (Auto) 82.5 H Lymph % (Auto) 10.1 L [place] % (Auto) 6.6 Eos % (Auto) 0.0 Baso % (Auto) 0.5 Lymph # (Auto) 0.7 L [place] # (Auto) 0.4 Eos # (Auto) 0.0 Baso # (Auto) 0.0 Abs Immat Gran (auto) 0.02 Absolute Neuts (auto) 5.4 Absolute Nucleated RBC 0.000 Nucleated RBC % (auto) 0.0 ESR 7 Anion Gap 13 Estim Creat Clear Calc 119.8 Estimated GFR > 60 POC Glucose Random Glucose 181 H Estimat Average Glucose Hemoglobin A1c % Lactic Acid Lactic Acid F/U @ 2Hr Calcium 9.2 Magnesium 1.6 Total Bilirubin 0.8 Direct Bilirubin 0.4 AST 47 H D ALT 61 H Alkaline Phosphatase 67 C-Reactive Protein 17.71 H Total Protein 6.3 L Albumin 3.8 COVID-19 ([facility]) COVID-19 Clin Com 11/04/21 11/04/21 11/04/21 13:46 13:46 13:46 MCV MCH MCHC RDW Plt Count MPV Immature Gran % (Auto) Neut % (Auto) Lymph % (Auto) [place] % (Auto) Eos % (Auto) Baso % (Auto) Lymph # (Auto) [place] # (Auto) Eos # (Auto) Baso # (Auto) Abs Immat Gran (auto) Absolute Neuts (auto) Absolute Nucleated RBC Nucleated RBC % (auto) ESR Anion Gap Estim Creat Clear Calc Estimated GFR POC Glucose Random Glucose Estimat Average Glucose 197 Hemoglobin A1c % 8.5 Lactic Acid 2.2 H* Lactic Acid F/U @ 2Hr Calcium Magnesium Total Bilirubin Direct Bilirubin AST ALT Alkaline Phosphatase C-Reactive Protein Total Protein Albumin COVID-19 ([facility]) Negative COVID-19 [email or web address] See Note 11/04/21 11/04/21 11/05/21 17:00 21:05 06:00 MCV MCH MCHC RDW Plt Count MPV Immature Gran % (Auto) Neut % (Auto) Lymph % (Auto) [place] % (Auto) Eos % (Auto) Baso % (Auto) Lymph # (Auto) [place] # (Auto) Eos # (Auto) Baso # (Auto) Abs Immat Gran (auto) Absolute Neuts (auto) Absolute Nucleated RBC Nucleated RBC % (auto) ESR Anion Gap 9 L Estim Creat Clear Calc 124.0 Estimated GFR > 60 POC Glucose 191 H Random Glucose 160 H Estimat Average Glucose Hemoglobin A1c % Lactic Acid Lactic Acid F/U @ 2Hr 0.9 Calcium 8.6 D Magnesium Total Bilirubin Direct Bilirubin AST ALT Alkaline Phosphatase C-Reactive Protein Total Protein Albumin COVID-19 ([facility]) COVID-19 [employer] Com 11/05/21 07:25 MCV MCH MCHC RDW Plt Count MPV Immature Gran % (Auto) Neut % (Auto) Lymph % (Auto) [place] % (Auto) Eos % (Auto) Baso % (Auto) Lymph # (Auto) [place] # (Auto) Eos # (Auto) Baso # (Auto) Abs Immat Gran (auto) Absolute Neuts (auto) Absolute Nucleated RBC Nucleated RBC % (auto) ESR Anion Gap Estim Creat Clear Calc Estimated GFR POC Glucose 168 H Random Glucose Estimat Average Glucose Hemoglobin A1c % Lactic Acid Lactic Acid F/U @ 2Hr Calcium Magnesium Total Bilirubin Direct Bilirubin AST ALT Alkaline Phosphatase C-Reactive Protein Total Protein Albumin COVID-19 ([facility]) COVID-19 Clin Com Assessment and Plan (1) Positive blood culture: Status: Acute (2) Cellulitis: Status: Acute Plan hospital d#2 46yo M with chronic but largely healed right foot wounds presenting with cellulitis of right foot with lymphangitic streaking, left AMA from ED yesterday but called back due to Gram-positive bacteremia # DM foot infection/cellulitis # Gram-positive bacteremia - growing Staphylococcus sp. plus Group C Streptococcus from 11/02 BCx drawn 11/03/21; repeat BCx from 11/04/21 pending - continue vanco + levo d#2, ID consult + TTE pending - MRI to r/o osteomyelitis ordered # lactic acidosis - resolved p IV hydration # DM2, A1c 8.5 - correction dose lispro # hostility # anxiety/PTSD - on prn lorazepam - will consult Psych # tobacco abuse - NRT # VTE ppx - LMWH Quality Stroke Does the patient have a stroke diagnosis?: No VTE Prior VTE?: No VTE Risk Level:: Medical - moderate - high VTE Device Contraindication: N/A - Device Ordered VTE Drug Contraindication: N/A - Med Ordered
--- NOTE | 2021-11-05 10:54 | PC.NURSE ---
Addendum entered by Yocasta Guidry RN 11/05/21 17:38: Pt continues to complaining about care, You should go back to school to learn. You people don't know what the hell you are doing. Pt had his MRI this afternoon. Foot wound is negative for Osteomyelitis. pt refused his afternoon blood sugar check therefore no insulin given . Pt continues on IOV ABT therapy for DFU infection. Original Note: Pt is alert and oriented x4. Pt is very resistive to care and any medications ordered. He either refuses insulin injections or refusse to have his blood sugar taken. Pt is verbally abusive to staff.
--- NOTE | 2021-11-05 11:20 | MHC.CM.PN ---
PATIENT IS NOT ACTIVE WITH [facility] CM TO ATTEMPT TO FIND AGENCY. IT MAY BE AN [facility] THAT VISITS.
[2021-11-05 11:41] LABS: Glucose, Whole Blood 191 mg/dL (60-115)
[2021-11-05] MEDS: Insulin Lispro 100 UNIT/ML 3 ML VIAL SUBCUT (12:34)
[2021-11-05] MEDS: levoFLOXacin/D5W 500 MG/100 ML PIGGYBACK 100 MG IV (12:36)
[2021-11-05 15:37] VITALS: BP 130/78; PULSE 78; RESP 17; TEMP 36.5; O2SAT 99
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
--- NOTE | 2021-11-05 22:54 | P.CNID_ITS ---
History of Present Illness Data of Consult Service Date: 11/05/21 Requesting physician: Florence Castanon Primary Care Provider: None Physician HPI Reason for consult: bactermia,foot wounds He presents to hospital with redness right foot as well as fatigue. HE has Group C strep and staph aureus in blood. He has cleared blood cultures. 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 High cholesterol HTN (hypertension) Posttraumatic stress disorder Right foot infection Staphylococcus aureus bacteremia Family History Family history: reviewed and not pertinent Social History Social History Household Members: None Housing: House Alcohol intake: never Patient Tobacco Use Status: Current everyday Tobacco user Tobacco use type: Cigarette Cigarette Packs Per Day: 1 Cigarettes Per Day: 20.0 Second Hand Smoke Exposure: No Substance Use Type: Marijuana service: No Current occupational status: disabled Meds Allergies Allergy/AdvReac Type Severity Reaction Status Date / Time amoxicillin [AMOXICILLIN] Allergy Severe ANAPHYLAXIS Verified 05/29/21 17:29 acetaminophen [From TYLOX] Allergy Intermediate ITCHING Verified 12/27/20 20:19 hydrocodone [HYDROCODONE] Allergy Unknown UNKNOWN Verified 05/29/21 17:29 From TYLOX Allergy Intermediate ITCHING Uncoded 06/17/20 16:22 Active Medications: Current Medications Ascorbic Acid (Ascorbic Acid 500 Mg Tablet) 500 mg PO DAILY [facility] Last Admin: 11/05/21 07:46 Dose: 500 mg Documented by: Dextrose (Dextrose 50 % 25 Gm/50 Ml Syringe) 25 gm IVPUSH Q15M PRN; Protocol PRN Reason: per Hypoglycemia Standing Ord. Enoxaparin Sodium (Enoxaparin Sodium 40 Mg/0.4 Ml Syringe) 40 mg SUBCUT Q24H [facility] Last Admin: 11/05/21 21:03 Dose: Not Given Documented by: Glucose (Glucose Gel 15 Gm Gel..Gram.) 15 gm PO Q15M PRN; Protocol PRN Reason: per Hypoglycemia Standing Ord. Levofloxacin (Levaquin) 500 mg in 100 mls @ 100 mls/hr IV Q24H [facility] Last Infusion: 11/05/21 14:37 Dose: Infused Documented by: Vancomycin HCl 1,250 mg/ (Sodium Chloride) 250 mls @ 166.667 mls/hr IV Q12H [facility] Last Infusion: 11/05/21 18:40 Dose: Infused Documented by: Insulin Human Lispro (Insulin Lispro 100 Unit/Ml 3 Ml Vial) 0 unit SUBCUT QIDACHS [facility]; Protocol Last Admin: 11/05/21 21:03 Dose: Not Given Documented by: Lorazepam (Lorazepam 1 Mg Tablet) 1 mg PO Q6H PRN PRN Reason: Anxiety Last Admin: 11/05/21 07:51 Dose: 1 mg Documented by: Nicotine (Nicotine 14 Mg Patch.Td24) 14 mg TRANSDERMA DAILY [facility] Last Admin: 11/05/21 07:45 Dose: 14 mg Documented by: Ondansetron HCl (Ondansetron Hcl 4 Mg/2 Ml Vial) 4 mg IVPUSH Q8H PRN PRN Reason: Nausea and Vomiting Oxycodone HCl (Oxycodone Hcl Immed Release 5 Mg Tablet) 5 mg PO Q6H PRN PRN Reason: Pain, Severe (Pain Scale 7-10) Pharmacy Consult (Consult Rx Perform Med Rec) 1 each MISCELLANE ONCE PRN PRN Reason: Consult order Pharmacy Consult (Consult Rx Vancomycin Dosing) 1 each MISCELLANE DAILY PRN PRN Reason: Consult order Sodium Chloride (0.9 % Sodium Chloride Flush 3 Ml Syringe) 3 ml IVFLUSH QSHIFT [facility] Last Admin: 11/05/21 19:12 Dose: 3 ml Documented by: Vitamin D (Cholecalciferol (Vitamin D3) 25 Mcg Tablet) 50 mcg PO DAILY [facility] Last Admin: 11/05/21 07:45 Dose: 50 mcg Documented by: Home Medications Medication Instructions Recorded Confirmed Last Taken Type ascorbic acid (vitamin C) 1,000 mg 500 mg PO DAILY 11/04/21 11/04/21 Unknown History tablet cholecalciferol (vitamin D3) 50 50 mcg PO DAILY 11/04/21 11/04/21 Unknown History mcg (2,000 unit) capsule naproxen 375 mg tablet 375 mg PO BID PRN 11/04/21 11/04/21 Unknown History Physical Exam Vital Signs: Vital Signs: Last Vital Signs Temp 97.7 F 11/05/21 15:37 Pulse 78 02/05/22 15:37 Resp 17 11/05/21 15:37 BP 130/78 11/05/21 15:37 Pulse Ox 99 11/05/21 15:37 BMI result Body Mass Index 31.9 Const: General: cooperative HENMT: Head: Yes normal to inspection Eyes: General: appearance normal, both eyes and all related structures Resp: Effort & Inspection: normal respiratory effort Cardio: Rate: regular rate Rhythm: regular rhythm GI: Palpation (GI): Soft to palpation and nontender Skin: General skin exam: no rashes or lesions noted Extrem: Other: right foot with some erythema foot to knee calluses under first and fifth toe right foot left foot plantar ulcer Results Labs CBC & Chem 7: 11/06/21 05:28 11/07/21 08:23 Labs: BMP 11/05/21 06:00 Sodium 141 Potassium 4.0 Chloride 109 H Carbon Dioxide 27 BUN 9 Creatinine 0.85 Calcium 8.6 D Microbiology Microbiology Results: Microbiology 11/04/21 14:21 Blood - Venous Blood Culture - Preliminary No growth after 24 hours. 11/04/21 13:51 Blood - Venous Blood Culture - Preliminary No growth after 24 hours. Assessment and Plan (1) Positive blood culture: Status: Acute (2) Cellulitis: Qualifiers: Laterality: right Site of cellulitis: extremity Site of cellulitis of extremity: lower extremity Qualified Code(s): L03.115 - Cellulitis of right lower limb (3) Bacterial infection due to Streptococcus, group C: Status: Acute There is no osteomyelitis seen (4) 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: Status: Acute (5) Staphylococcus aureus bacteremia: Status: Acute Plan four weeks Vancomycin due to allergy Check echo if not done
[2021-11-05 23:36] VITALS: BP 121/70; PULSE 66; RESP 20; TEMP 36.7; O2SAT 96
[2021-11-06 06:06] LABS: Hemoglobin 16.8 g/dl (14.0-18.0); Mean Corpuscular HGB Conc 34.3 g/dl (31.0-36.0); Mean Corpuscular Hemoglobin 29.5 pg (27.0-33.0); Mean Corpuscular Volume 86.1 fL (80.0-98.0); Mean Platelet Volume 9.6 fL (9.4-12.4); Platelet Count 186 X10*3/uL (160-400); Red Blood Count 5.69 X10*6/uL (4.60-5.80); Red Cell Distribution Width 14.1 % (11.0-16.0); White Blood Count 6.8 X10*3/uL (4.8-10.8)
[2021-11-06] MEDS: vancomycin HCL 1,250 MG in 0.9 % Sodium Chloride 250 ML 166.6 MG IV (06:11)
--- NOTE | 2021-11-06 06:11 | PC.NURSE ---
Patient very aggitated. Calling doctor names (MD is not present and unsure what MD he is speaking about). Swearing at this RN, states the whole hospital is worthless and staff is out to get him , and taking advantage of him . Assured him we are here to help him without any decrease in agitation. Patient can be heard from hallway shouting the F word occasionally a few min after left alone in room. Told this RN to get the f out after hanging antibiotic.
[2021-11-06 06:34] LABS: Anion Gap 11 (12-20); Blood Urea Nitrogen 9 mg/dL (9-16); Calcium 8.6 mg/dL (8.4-10.2); Carbon Dioxide 25 mmol/L (22-29); Chloride 109 mmol/L (96-108); Estimated Glomerular Filt Rate > 60; Glucose Random 149 mg/dL (60-115); Potassium 4.2 mmol/L (3.3-5.1); Sodium 141 mmol/L (135-145)
[2021-11-06 07:11] VITALS: BP 99/60; PULSE 72; RESP 18; TEMP 36.1; O2SAT 98
[2021-11-06] MEDS: Nicotine 14 MG PATCH.TD24 TRANSDERMA (08:05)
[2021-11-06] MEDS: Cholecalciferol (Vitamin D3) 25 MCG TABLET 50 MCG PO (08:05)
[2021-11-06] MEDS: 0.9 % Sodium Chloride Flush 3 ML SYRINGE IVFLUSH ×3 (08:06→20:37)
[2021-11-06] MEDS: Ascorbic Acid 500 MG TABLET PO (08:06)
[2021-11-06 08:44] LABS: Glucose, Whole Blood 160 mg/dL (60-115)
--- NOTE | 2021-11-06 09:40 | PC.NURSE ---
Pt alert and oriented x3. Denies pain or discomfort. Pt has anger issues and cannot control his anger. Something small can trigger him to loose his cool. This am, this law writer went to give pt his medications. Pt was asked if he wanted to get his Insulin as he has been refusing the last few times. Pt was asked if he also wanted his Nicotine patch . He stated Stop asking me a lot of questions. After scanning his other medications, pt was handed his meds and he had some water in the jar on the other side of the bed. He reached for it, but knocked it off instead which then started a series of reactions including curse words. He got up from the bed trying to pick the jar of water and knocked off his airpods as well. He got even more angry. He then noticed a tray of his breakfast on the table, and said Nobody even told me this was here. I hate this [facility]. He opened the tray to check what was in there, and there was 2-3 strips of wilson which he had ordered. That set him off even more. He slammed the lid shut and in so doing knocked the breakfast tray on the bed. Now this got super angry to the point of him rushing and climbing on the Window seal and slamming his palms on the Windows.At this time, this author was standing by the doorway. The pt yelled Why are you just standing there instead of helping? F-ing immigrant. He then yelled for this law writer to get out of his room. He slammed the door shut. This law writer then informed the corporate secretary to call security. After about 10-20 mins he requested to speak with medical social worker/case management.
--- NOTE | 2021-11-06 09:47 | P.PNIM_ITS ---
Subjective Subjective Date of Service: 11/06/21 Interval History: Very angry at the hospital, staff, and his medical situation. Despite this, his foot has improved. MRI with no evidence of abscess or osteomyelitis. No fever. Review of Systems Review of Systems: Yes all other systems are reviewed and are negative Physical Exam Verdana 4l Vital Signs: Verdana 4d Verdana 4d Vital Signs: Verdana 4d Verdana 4d Last Vital Signs Chocolatier New 4d Chocolatier New 4d Temp 97.0 F 11/06/21 07:11 Chocolatier New 4d Pulse 72 11/06/21 07:11 Chocolatier New 4d Resp 18 11/06/21 07:11 BP 99/60 11/06/21 07:11 Pulse Ox 98 11/06/21 07:11 BMI result Body Mass Index 31.9 Gen: angry, hostile HEENT: sclera anicteric Lungs: clear to auscultation bilaterally Heart: regular rate and rhythm Abd: soft, non-distended Ext: no edema Skin: lymphangitic streaking proximal to R foot cellulitis resolved; well-healed ulcers with callus on toes Objective Data Active Medications Ascorbic Acid (Ascorbic Acid 500 Mg Tablet) 500 mg PO DAILY [facility] Last Admin: 11/06/21 08:06 Dose: 500 mg Documented by: CRICKET Dextrose (Dextrose 50 % 25 Gm/50 Ml Syringe) 25 gm IVPUSH Q15M PRN; Protocol PRN Reason: per Hypoglycemia Standing Ord. Enoxaparin Sodium (Enoxaparin Sodium 40 Mg/0.4 Ml Syringe) 40 mg SUBCUT Q24H [facility] Last Admin: 11/05/21 21:03 Dose: Not Given Documented by: JO Non-Admin Reason: Patient Refused Glucose (Glucose Gel 15 Gm Gel..Gram.) 15 gm PO Q15M PRN; Protocol PRN Reason: per Hypoglycemia Standing Ord. Vancomycin HCl 1,250 mg/ (Sodium Chloride) 250 mls @ 166.667 mls/hr IV Q12H [facility] Last Infusion: 11/06/21 08:19 Dose: 0 mls/hr Documented by: CRICKET Insulin Human Lispro (Insulin Lispro 100 Unit/Ml 3 Ml Vial) 0 unit SUBCUT QIDACHS [facility]; Protocol Last Admin: 11/06/21 08:06 Dose: Not Given Documented by: CRICKET Non-Admin Reason: Patient Refused Lorazepam (Lorazepam 1 Mg Tablet) 1 mg PO Q6H PRN PRN Reason: Anxiety Last Admin: 11/05/21 07:51 Dose: 1 mg Documented by: ODRISM Nicotine (Nicotine 14 Mg Patch.Td24) 14 mg TRANSDERMA DAILY [facility] Last Admin: 11/06/21 08:05 Dose: 14 mg Documented by: CRICKET Ondansetron HCl (Ondansetron Hcl 4 Mg/2 Ml Vial) 4 mg IVPUSH Q8H PRN PRN Reason: Nausea and Vomiting Oxycodone HCl (Oxycodone Hcl Immed Release 5 Mg Tablet) 5 mg PO Q6H PRN PRN Reason: Pain, Severe (Pain Scale 7-10) Pharmacy Consult (Consult Rx Perform Med Rec) 1 each MISCELLANE ONCE PRN PRN Reason: Consult order Pharmacy Consult (Consult Rx Vancomycin Dosing) 1 each MISCELLANE DAILY PRN PRN Reason: Consult order Sodium Chloride (0.9 % Sodium Chloride Flush 3 Ml Syringe) 3 ml IVFLUSH QSHIFT [facility] Last Admin: 11/06/21 08:06 Dose: 3 ml Documented by: CRICKET Vitamin D (Cholecalciferol (Vitamin D3) 25 Mcg Tablet) 50 mcg PO DAILY [facility] Last Admin: 11/06/21 08:05 Dose: 50 mcg Documented by: CRICKET Labs CBC & Chem 7: 11/06/21 05:28 11/06/21 05:28 Labs: Laboratory Results - last 24 hr 11/05/21 11/06/21 11/06/21 11:38 05:28 05:28 MCV 86.1 MCH 29.5 MCHC 34.3 RDW 14.1 Plt Count 186 MPV 9.6 Absolute Nucleated RBC 0.000 Nucleated RBC % (auto) 0.0 Anion Gap 11 L Estim Creat Clear Calc 127.0 Estimated GFR > 60 POC Glucose 191 H Random Glucose 149 H Calcium 8.6 11/06/21 07:05 MCV MCH MCHC RDW Plt Count MPV Absolute Nucleated RBC Nucleated RBC % (auto) Anion Gap Estim Creat Clear Calc Estimated GFR POC Glucose 160 H Random Glucose Calcium Impressions Foot MRI 11/05/21 15:35 IMPRESSION: Superficial skin wound at the medial/plantar aspect of the forefoot and midfoot without evidence of underlying osteomyelitis or abscess. Microbiology Microbiology Results: Microbiology 11/04/21 14:21 Blood Culture - Preliminary Blood - Venous No growth after 24 hours. 11/04/21 13:51 Blood Culture - Preliminary Blood - Venous No growth after 24 hours. Assessment and Plan (1) Positive blood culture: Status: Acute (2) Cellulitis: Status: Acute Plan hospital d#3 46yo M with chronic but largely healed right foot wounds presenting with cellulitis of right foot with lymphangitic streaking, left AMA from ED 11/03 but called back due to Gram-positive bacteremia and returned 11/04 # DM foot infection/cellulitis # Gram-positive bacteremia - growing MSSA plus Group C Streptococcus from 11/02 BCx drawn 11/03/21; repeat BCx from 11/03/21 NGTD - continue vanco d#3, d/c levo, TTE + PICC line pending, ID consulted; plan d/c home with [facility] after PICC # lactic acidosis - resolved p IV hydration # DM2, A1c 8.5 - correction dose lispro # hostility # anxiety/PTSD - on prn lorazepam - Psych consult appreciated # tobacco abuse - NRT # VTE ppx - LMWH Quality Stroke Does the patient have a stroke diagnosis?: No VTE Prior VTE?: No VTE Risk Level:: Medical - moderate - high VTE Device Contraindication: N/A - Device Ordered VTE Drug Contraindication: N/A - Med Ordered
[2021-11-06 12:47] LABS: Glucose, Whole Blood 163 mg/dL (60-115)
--- NOTE | 2021-11-06 15:37 | PHA.PROG ---
Admission Date/Time: November 04, 2021 15:42 Indication: Bacteremia Weight in k.1 kg Adjusted body weight in K.7 kg Doss body weight in K.66 kg Obesity Dosing Indication % IBW: 138% Serum Creatinine - Last 168 Hours 11/04/21 11/05/21 11/06/21 13:46 06:00 05:28 Creatinine 0.88 0.85 0.83 Estimated CrCl and GFR - Last 168 Hours 11/04/21 11/05/21 11/06/21 13:46 06:00 05:28 Estim Creat Clear Calc 119.8 124.0 127.0 Estimated GFR > 60 > 60 > 60 Vancomycin Loading Dose: None given Current Vancomycin Dosing Regimen: 1250mg Q12H Date and Time for next Vancomycin Level to be drawn: 11/08 @ 0300 Vancomycin Trough 11.0 mcg/mL (10.0-20.0) 11/06/21 14:55 Pharmacist Comments on Vancomycin Plan: Trough 11/06 @ 1500 was drawn 2 hours prior to 5th dose. Patient is currently subtherapetic with regimen of 1250 mg Q12H. Patient % IBW > 120% therefore requires obesity dosing Will increase patient dose to 1500 mg Q12H. Expected AUC is 474. Next troguh to be drawn after 3 doses. Pharmacy will continue to monitor renal function daily Anisa Edwards PharmD Vancomycin dosing will take advantage of [employer] as a clinical decision support tool that uses Bayesian modeling to calculate individual patient's pharmacokinetic parameters and forecast the patient's drug concentration time course with the target goal AUC 24 range of 400 - 600 mg/L/hr.
[2021-11-06 15:46] VITALS: BP 110/69; PULSE 72; RESP 18; TEMP 36.3; O2SAT 98
[2021-11-06 16:10] LABS: Glucose, Whole Blood 169 mg/dL (60-115)
[2021-11-06] MEDS: vancomycin HCL 1,500 MG in 0.9 % Sodium Chloride 500 ML 333.33 MG IV (17:22)
[2021-11-06 19:35] VITALS: BP 113/63; PULSE 71; RESP 18; TEMP 36.7; O2SAT 99
[2021-11-06 19:49] LABS: Glucose, Whole Blood 156 mg/dL (60-115)
[2021-11-06 23:33] VITALS: BP 102/59; PULSE 68; RESP 16; TEMP 36.3; O2SAT 97
[2021-11-07] MEDS: vancomycin HCL 1,500 MG in 0.9 % Sodium Chloride 500 ML 333.33 MG IV (06:14)
[2021-11-07 07:12] LABS: Glucose, Whole Blood 168 mg/dL (60-115)
[2021-11-07] MEDS: Nicotine 14 MG PATCH.TD24 TRANSDERMA (07:20)
[2021-11-07] MEDS: Ascorbic Acid 500 MG TABLET PO (07:21)
[2021-11-07] MEDS: Cholecalciferol (Vitamin D3) 25 MCG TABLET 50 MCG PO (07:21)
[2021-11-07] MEDS: Insulin Lispro 100 UNIT/ML 3 ML VIAL SUBCUT (07:22)
[2021-11-07] MEDS: 0.9 % Sodium Chloride Flush 3 ML SYRINGE IVFLUSH (07:22)
[2021-11-07 08:00] VITALS: BP 113/66; PULSE 75; RESP 18; TEMP 35.8; O2SAT 99
[2021-11-07 09:01] LABS: Creatinine Clr Calc Pharmacy 131.8; Estimated Glomerular Filt Rate > 60
--- NOTE | 2021-11-07 11:20 | P.F2F_ITS ---
Service Date Service Date: 11/07/21 Encounter Date of encounter: 11/07/21 Reasons for Services Signs and symptoms assessed: bacteremia Reason for group home: administration of IV, SQ, or IM injection, monitoring of unstable blood sugar and medication treatment MD Overseeing Care: Jordy Bauer Homebound: Leaving the home is medically contraindicated at this time without the asist of a device and/or another person due th the listed conditions above and below. Reason homebound: immunosuppression / infection risk and other (IV antibiotic) Certification: Based on the above findings, I certify that this patient is confined to the home and needs intermittent group home care, physical therapy and/or speech therapy, or continues to need occupational therapy. The patient is under my care, and I have initiated the establishment of the plan of care. The patient will be followed by a physician who will periodically review the plan of care.
--- NOTE | 2021-11-07 11:28 | PC.NURSE ---
Skin/wound nurse assessment completed. Patient has a diabetic ulcer to right foot with osteo. Patient getting PICC line for antibiotic treatment.
--- NOTE | 2021-11-07 12:26 | HO.PICC ---
PICC Line Insertion NPICC Diagnosis: BACTEREMIA Indication: PLUSH BRUSHER IV ANTIBIOTICS Pertinent Labs: REVIEWED Technique: Following informed consent including risks, benefits and alternatives and using sterile technique including cap and mask, sterile gown, glove and drape, the RIGHT arm was prepped and draped in the usual sterile fashion of full barrier technique with CHG. Following completion of Darrington Protocol the skin and soft tissues were anesthetized with 1% Lidocaine plain. Using ultrasound guidance, CEPHALIC vein access was obtained ON SECOND ATTEMPT BY THIS RN. Over an 0.018 wire through peel-away sheath, a SINGLE LUMEN, 4-[employer] [place], PASV PICC line was positioned. Catheter length is 36 CM internal length, 2 CM external length, for a total trimmed length of 38 CM. The procedure was performed in S-272. Tip verification was performed by Payton Jones with Kay 3CG. Tip located in SVC. Ultrasound was used to document vein patency and for needle entry. A formal ultrasound picture and cardiac rhythm strip was recorded. Vascular Veterinary Technician Instructor has released the line for use and it is currently dressed with a StatLock, Tegaderm, and CHG disc. Verification has been performed for blood return and line patency. Arm Circumference: 31 CM Equipment: LifeNexus POWERPICC SOLO Catheter Type: 4-[employer] [place], PASV, SINGLE LUMEN Lot #: [id number]
[2021-11-07] MEDS: DAPTOMYCIN IV (12:56)
[2021-11-07] MEDS: SODIUM CHLORIDE 0.9% IV (12:56)
[2021-11-07 13:04] LABS: Glucose, Whole Blood 134 mg/dL (60-115)
--- NOTE | 2021-11-07 14:18 | MHC.CM.PN ---
Addendum entered by Marina Drummond 11/07/21 15:22: FINALIZED D/C PLAN - HOME 11/07/21 WITH [facility] TO DLEIVER IV ABX TO HIS HOME 2 [place] [facility] CONFIRMED NEW PCP DR WALTER WATTS , KADE MUELLER LAST SEEN AUGUST 2021. CONFIRMED WITH BRANDO HERNANDEZ WITH STARTING NURIS FOR IV ABX ADMINSTRATION TEACHING AND PIC LINE FLUSHES AND PIC LINE DRESSING CHANGES AND LABS DRAWS , NEW PCP DR JOHNATHAN MUELLER [facility] CANCELLED REFERRAL TO [facility] FOR IV ABX HE WILL NOW RECIVE IT AT HOME STARTING ON 11/08/21 Addendum entered by Theresa Dorsey 11/07/21 14:32: Call placed to [facility] at [facility] to inform her of [facility] no auth: she is requesting pt report to [facility] on November 08 at 10 am for his outpt infusion. Flush orders to be completed and signed by then brought down to [facility]. Pt will receive IV ATB at [facility] until he sees his PCP who can write for orders including pulling the PICC by VNA. Original Note: Call placed to [facility] prior auth department: spoke with [facility] who stated outpt ATB infusion with CPT code 21046 does not require authorization. Call reference number [id number]
--- NOTE | 2021-11-07 14:27 | P.DS_ITS ---
DS: Providers Provider Date of Service: 11/07/21 Date of admission: 11/04/21 15:42 Primary care physician: KADE Gilbert Consults: 11/04/21 15:42 Consult to Infectious Diseases Routine Consulting Provider: Cathie Guo Reason for consultation: DM foot infection/bacteremia 11/05/21 08:52 Consult to Psychiatry Routine Consulting Provider: Psych Covering Reason for consultation: verbally abusive; refusing care; ?personality disorder DS: Diagnosis Discharge Diagnosis (1) Cellulitis: Status: Acute (2) Staphylococcus aureus bacteremia: Status: Acute (3) Bacterial infection due to Streptococcus, group C: Status: Acute (4) Bacteremia due to Streptococcus: Status: Acute (5) Acidosis, lactic: Status: Acute DS: Summary Hospital Course Hospital Course: From admission history and physical, 11/04/21: 46 year-old man with DM2, HLD, HTN, anxiety, and PTSD who has been seen at the [facility] for chronic left foot wounds.? He presented to the ED yesterday worsening burning pain with redness and warmth on the medial part of his left foot arch for approximately 1 week.? He had fever to 100.4 with chills yesterday.? He was tachypneic and tachycardic in the ED.? L foot X-ray was negative for osteomyelitis.? The patient was noted to have significant lymphangitic streaking proximal to the wound and admission for IV antibiotics and MRI to rule out osteomyelitis was recommended.? However, the patient signed out against medical advice and was prescribed doxycycline, of which he took 2 doses.? Later, his 2 blood cultures returned positive for Gram-positive cocci in chains and he was called back to the ED. In the ED, he was found to have lactate of 2.2 yesterday but SIRS physiology from yesterday had resolved.? He was given 1 dose of vancomycin and 1 dose of levofloxacin as well as 2L of IV normal saline. This 46 year-old man with chronic but largely healed right foot wounds presenting with cellulitis of right foot with lymphangitic streaking, left AMA from ED 11/03/21 but was called back due to Gram-positive bacteremia and returned 11/04/21. Blood cultures from 11/03/21 grew MSSA plus Group C Streptococcus; blood cultures from 11/04/21 cleared. He was initially treated with vancomycin and levofloxacin and transitioned to daptomycin per ID consultation. Lactic acidosis resolved after IV hydration. MRI showed no abscess or osteomyelitis. Lymphangitic streaking resolved. PICC line was placed. Unfortunately, the patient cannot get VNA services until he is seen by his primary care provider on 11/18/21; until then, he will come to Short Stay Surgery at [facility] to get daily daptomycin infusions. Plan is for total 4 weeks of daptomycin with end date of 12/02/21; weekly labs beginning 11/14/21 to be drawn are CBCd, CMP, and CPK. Time Spent with Patient Time attestation: Total time spent providing and/or coordinating discharge services: Discharge coordination time: Greater than 30 minutes Quality: Stroke Does the patient have a stroke diagnosis?: No Physical Exam Verdana 4l Vital Signs: Verdana 4d Verdana 4d Vital Signs: Verdana 4d Verdana 4Bd Last Vital Signs Verdana 4d Snow Fence Erector New 4d Snow Fence Erector New 4d Temp 96.4 F L 11/07/21 08:00 Snow Fence Erector New 4d Pulse 75 11/07/21 08:00 Snow Fence Erector New 4d Resp 18 11/07/21 08:00 BP 113/66 11/07/21 08:00 Pulse Ox 99 11/07/21 08:00 BMI result Body Mass Index 31.9 Gen: NAD HEENT: sclera anicteric Lungs: clear to auscultation bilaterally Heart: regular rate and rhythm Abd: soft, non-distended Ext: no edema; RUE PICC Skin: lymphangitic streaking proximal to R foot cellulitis resolved; well-healed ulcers with callus on toes DS: Data Data Completed and Pending Completed studies during hospitalization [Text1]: Laboratory Results WBC 6.8 X10*3/uL (4.8-10.8) 11/06/21 05:28 RBC 5.69 X10*6/uL (4.60-5.80) 11/06/21 05:28 Hgb 16.8 g/dl (14.0-18.0) 11/06/21 05:28 Hct 49.0 % (42.0-52.0) 11/06/21 05:28 MCV 86.1 fL (80.0-98.0) 11/06/21 05:28 MCH 29.5 pg (27.0-33.0) 11/06/21 05:28 MCHC 34.3 g/dl (31.0-36.0) 11/06/21 05:28 RDW 14.1 % (11.0-16.0) 11/06/21 05:28 Plt Count 186 X10*3/uL (160-400) 11/06/21 05:28 MPV 9.6 fL (9.4-12.4) 11/06/21 05:28 Immature Gran % (Auto) 0.3 % (0.0-0.4) 11/04/21 13:46 Neut % (Auto) 82.5 % (45-73) H 11/04/21 13:46 Lymph % (Auto) 10.1 % (20-40) L 11/04/21 13:46 Mclean % (Auto) 6.6 % (2-11) 11/04/21 13:46 Eos % (Auto) 0.0 % (0-4) 11/04/21 13:46 Baso % (Auto) 0.5 % (0-2) 11/04/21 13:46 Lymph # (Auto) 0.7 X10*3/uL (1.2-4.9) L 11/04/21 13:46 Mclean # (Auto) 0.4 X10*3/uL (0.1-1.2) 11/04/21 13:46 Eos # (Auto) 0.0 X10*3/uL (0.0-0.4) 11/04/21 13:46 Baso # (Auto) 0.0 X10*3/uL (0.0-0.2) 11/04/21 13:46 Abs Immat Gran (auto) 0.02 X10*3/uL (0.00-0.03) 11/04/21 13:46 Absolute Neuts (auto) 5.4 x10*3/uL (2.0-8.3) 11/04/21 13:46 Absolute Nucleated RBC 0.000 X10*3/uL (0.0-0.012) 11/06/21 05:28 Nucleated RBC % (auto) 0.0 /100WBC (0.0-0.2) 11/06/21 05:28 ESR 7 MM/HR (0-15) 11/04/21 13:46 Sodium 141 mmol/L (135-145) 11/06/21 05:28 Potassium 4.2 mmol/L (3.3-5.1) 11/06/21 05:28 Chloride 109 mmol/L (96-108) H 11/06/21 05:28 Carbon Dioxide 25 mmol/L (22-29) 11/06/21 05:28 Anion Gap 11 (12-20) L 11/06/21 05:28 BUN 9 mg/dL (9-16) 11/06/21 05:28 Creatinine 0.80 mg/dL (0.5-1.4) 11/07/21 08:23 Estim Creat Clear Calc 131.8 11/07/21 08:23 Estimated GFR > 60 11/07/21 08:23 POC Glucose 134 mg/dL (60-115) H 11/07/21 12:52 Random Glucose 149 mg/dL (60-115) H 11/06/21 05:28 Estimat Average Glucose 197 mg/dL 11/04/21 13:46 Hemoglobin A1c % 8.5 % 11/04/21 13:46 Lactic Acid 2.2 mmol/L (0.5-2.0) H* 11/04/21 13:46 Lactic Acid F/U @ 2Hr 0.9 mmol/L (0.5-2.0) 11/04/21 17:00 Calcium 8.6 mg/dL (8.4-10.2) 11/06/21 05:28 Magnesium 1.6 mg/dL (1.6-2.6) 11/04/21 13:46 Total Bilirubin 0.8 mg/dL (0.0-1.0) 11/04/21 13:46 Direct Bilirubin 0.4 mg/dL (0.0-0.5) 11/04/21 13:46 AST 47 U/L (5-37) H D 11/04/21 13:46 ALT 61 U/L (0-40) H 11/04/21 13:46 Alkaline Phosphatase 67 U/L (39-117) 11/04/21 13:46 Total Creatine Kinase 30 U/L (38-174) L 11/07/21 08:23 C-Reactive Protein 17.71 mg/dL (< or = 0.50) H 11/04/21 13:46 Total Protein 6.3 g/dL (6.5-8.0) L 11/04/21 13:46 Albumin 3.8 g/dL (3.5-5.0) 11/04/21 13:46 Vancomycin Trough 11.0 mcg/mL (10.0-20.0) 11/06/21 14:55 COVID-19 ([facility]) Negative (Negative) 11/04/21 13:46 COVID-19 Clin Com See Note 11/04/21 13:46 Impressions Foot MRI 11/05/21 15:35 IMPRESSION: Superficial skin wound at the medial/plantar aspect of the forefoot and midfoot without evidence of underlying osteomyelitis or abscess. Blood cultures, 11/03/21 Organism 1 Streptococcus group c Organism 2 Staphylococcus aureus ORG #1: Susceptibility testing of same organism(s) from similar site will not be repeated within 4 days. Results of Blood Culture gram stain called to and read back by LIZETH at 0107 on 11/04/[address] grp c M.I.C. RX --------- --- Ampicillin Strep <=0.25 S Ceftriaxone <=0.12 S Clindamycin <=0.25 S Erythromycin <=0.12 S Penicillin-G <=0.06 S S aureus M.I.C. RX --------- --- Clindamycin <=0.25 S Erythromycin <=0.25 S Levofloxacin 0.25 S Oxacillin 0.5 S Penicillin-G >=0.5 R Tetracycline <=1 S Trimethoprim/Sulfamethoxazole <=10 S Discharge Plan Discharge Patient Disposition: Home Health Service Discharge Diagnosis: bacteremia, cellulitis Referrals: [facility] [Other] - 1 Day (HOME INFUSION COMPANY -PROVIDES IV ANTIBIOTIC AND ALL RELATED SUPPLIES AND PIC LINE DRESSINF and flusheses, they will arNGE WITH YOU DELIVERY TIME TO YOUR HOUSE, AND THE VNA WILL COME OUT FOR TEACHING FOR IV ADMINISTRATION AND PIC LINE DRESSING CHANGES AND LABS. ) [facility] short stay on November 08 at 10am for IV ATB infusion [Other] - 1 Week Cathie Guo MD [Physician] - 1 Week (DR CATHIE ESCOBEDO [facility] DISE[facility] SPECIALIST , WHOM WILL FOLLOW UP ON YOUR LABS AND FOLLOW UP APPT FOR NOV 152021 AT 11 AM [address]DRESS) Jordy Bauer PA [Primary Care Provider] - 11/18/21 9:00 am (You have a follow up appointment with Dr. Bauer scheduled on November 18 at 9:00 am.) Discharge Medications: New daptomycin 500 mg Recon Soln 780 mg IV Q24H Qty: 24 0RF nicotine 14 mg/24 hr Patch 24 Hour 14 mg transdermal DAILY Qty: 30 0RF Continued ascorbic acid (vitamin C) 1,000 mg Tablet 500 mg PO DAILY 0RF naproxen 375 mg Tablet 375 mg PO BID PRN (Reason: Pain) 0RF cholecalciferol (vitamin D3) 50 mcg (2,000 unit) Capsule 50 mcg PO DAILY 0RF Discharge Orders: Discharge Order (Routine); Ordered 11/07/21 Ordered By: Florence Castanon Diet: advance to usual diet and diabetic diet Activity on Discharge: As tolerated Stand Alone Forms: Patient Portal Discharge page Care Plan Goals: cure of skin infection/bacteremia Health Concerns: cellulitis/bacteremia Plan of Treatment: daptomycin 780 mg IV daily via PICC line, end date 12/02/21 - return to hospital [Short Stay Surgery] daily beginning 11/08/21 for your antibiotic infusion, until you see your primary care provider and VNA services have been arranged weekly labs starting 11/14/21 while on daptomycin: CBCd, CMP, CPK follow up with Primary Care and Infectious Disease in 1 week quit smoking; use nicotine patch to help Assessment: see Discharge Summary Patient Instructions: Bacteremia (DC), PICC (Peripherally Inserted Central Catheter) (DC)
== END 2021-11-07 15:10 | disposition home health service (06) | DRG 380 ==
LOC: HO.ED 13:57 → HO.EDOVER 15:53 → HO.S3 19:26
PROVIDERS: Admitting Provider Family Medicine; Emergency Provider Emergency Medicine; PCP Nurse Practitioner Family; Visit Provider Family Medicine
DX: E10.621 Type 1 diabetes mellitus with foot ulcer (principal); L97.519 Non-pressure chronic ulcer of other part of right foot with unspecified severity; R78.81 Bacteremia; E87.2 Acidosis; L03.115 Cellulitis of right lower limb; E78.5 Hyperlipidemia, unspecified; I10 Essential (primary) hypertension; B95.61 Methicillin susceptible Staphylococcus aureus infection as the cause of diseases classified elsewhere; B95.4 Other streptococcus as the cause of diseases classified elsewhere; Z20.822 Contact with and (suspected) exposure to COVID-19; Z88.0 Allergy status to penicillin; Z79.1 Long term (current) use of non-steroidal anti-inflammatories (NSAID); Z79.899 Other long term (current) drug therapy
CPT/HCPCS: 36415; 36573; 73720; 80048; 80076; 80202; 82550; 82565; 82947; 83036; 83605; 83735; 85025; 85027; 85652; 86140; 87040; 87635; 96365; 96375; 99285; 99291; C1751; J0878; J1956; J3370

== ENCOUNTER 2021-11-14 15:21 | Outpatient (REF) | payer OTHER, SELFPAY ==
[2021-11-14 16:36] LABS: MANUAL DIFF FLAG NO
[2021-11-14 16:44] LABS: Basophils Absolute Auto 0.1 X10*3/uL (0.0-0.2); Basophils Percent Auto 0.5 % (0-2); Hematocrit 50.6 % (42.0-52.0); Hemoglobin 17.4 g/dl (14.0-18.0); Imm Gran Abs Auto 0.08 X10*3/uL (0.00-0.03); Imm Gran Pct Auto 0.5 % (0.0-0.4); Lymphocytes Percent Auto 20.6 % (20-40); Mean Corpuscular HGB Conc 34.4 g/dl (31.0-36.0); Mean Corpuscular Hemoglobin 29.6 pg (27.0-33.0); Mean Corpuscular Volume 86.1 fL (80.0-98.0); Mean Platelet Volume 9.4 fL (9.4-12.4); Monocytes Absolute Auto 0.8 X10*3/uL (0.1-1.2); Monocytes Percent Auto 5.1 % (2-11); Neutrophils Absolute Auto 10.7 x10*3/uL (2.0-8.3); Neutrophils Percent Auto 73.3 % (45-73); Platelet Count 380 X10*3/uL (160-400); Red Blood Count 5.88 X10*6/uL (4.60-5.80); Red Cell Distribution Width 14.1 % (11.0-16.0); White Blood Count 14.7 X10*3/uL (4.8-10.8)
[2021-11-14 16:52] LABS: Alanine Aminotransferase 49 U/L (0-40); Albumin Level 4.1 g/dL (3.5-5.0); Alkaline Phosphatase 66 U/L (39-117); Anion Gap 13 (12-20); Aspartate Amino Transferase 23 U/L (5-37); Bilirubin Total 0.5 mg/dL (0.0-1.0); Blood Urea Nitrogen 16 mg/dL (9-16); Calcium 9.6 mg/dL (8.4-10.2); Carbon Dioxide 25 mmol/L (22-29); Chloride 102 mmol/L (96-108); Estimated Glomerular Filt Rate > 60; Glucose Random 255 mg/dL (60-115); Sodium 135 mmol/L (135-145); Total Protein 7.1 g/dL (6.5-8.0)
== END 2021-11-14 15:22 | disposition home or self-care (01) ==
LOC: HO.HMGCLNP 15:21
PROVIDERS: Visit Provider Internal Medicine
DX: Z71.89 Other specified counseling (principal)
CPT/HCPCS: 80053; 82550; 85025

== ENCOUNTER 2021-11-21 15:23 | Outpatient (REF) | payer OTHER, SELFPAY ==
[2021-11-21 16:29] LABS: MANUAL DIFF FLAG NO
[2021-11-21 16:34] LABS: Basophils Absolute Auto 0.1 X10*3/uL (0.0-0.2); Basophils Percent Auto 0.5 % (0-2); Hematocrit 50.4 % (42.0-52.0); Hemoglobin 17.3 g/dl (14.0-18.0); Imm Gran Abs Auto 0.04 X10*3/uL (0.00-0.03); Imm Gran Pct Auto 0.4 % (0.0-0.4); Lymphocytes Absolute Auto 2.4 X10*3/uL (1.2-4.9); Lymphocytes Percent Auto 23.8 % (20-40); Mean Corpuscular HGB Conc 34.3 g/dl (31.0-36.0); Mean Corpuscular Hemoglobin 29.8 pg (27.0-33.0); Mean Corpuscular Volume 86.9 fL (80.0-98.0); Monocytes Absolute Auto 0.9 X10*3/uL (0.1-1.2); Monocytes Percent Auto 8.6 % (2-11); Neutrophils Absolute Auto 6.9 x10*3/uL (2.0-8.3); Neutrophils Percent Auto 66.7 % (45-73); Platelet Count 338 X10*3/uL (160-400); Red Cell Distribution Width 13.7 % (11.0-16.0); White Blood Count 10.3 X10*3/uL (4.8-10.8)
[2021-11-21 16:46] LABS: Alanine Aminotransferase 40 U/L (0-40); Albumin Level 4.2 g/dL (3.5-5.0); Alkaline Phosphatase 68 U/L (39-117); Anion Gap 13 (12-20); Aspartate Amino Transferase 25 U/L (5-37); Bilirubin Total 0.4 mg/dL (0.0-1.0); Blood Urea Nitrogen 11 mg/dL (9-16); Calcium 9.5 mg/dL (8.4-10.2); Carbon Dioxide 25 mmol/L (22-29); Chloride 103 mmol/L (96-108); Estimated Glomerular Filt Rate > 60; Glucose Random 169 mg/dL (60-115); Potassium 4.5 mmol/L (3.3-5.1); Sodium 136 mmol/L (135-145); Total Protein 7.4 g/dL (6.5-8.0)
== END 2021-11-21 15:24 | disposition home or self-care (01) ==
LOC: HO.HVNA 15:23
PROVIDERS: Visit Provider Internal Medicine
DX: R78.81 Bacteremia (principal)
CPT/HCPCS: 80053; 82550; 85025

== ENCOUNTER 2021-11-22 15:59 | Emergency (ER) | payer OTHER, SELFPAY ==
[2021-11-22 18:03] VITALS: BP 119/90; BP 126/87; PULSE 93; RESP 20; TEMP 36.6; O2SAT 97; BMI 31.1
--- NOTE | 2021-11-22 18:07 | PC.NURSE ---
pt alert and oriented x4, rr even/unlabored, speaking in full clear sentences, no apparent distress noted. pt sts this hospital will be responsible that i have to walk home if i am not taken in by 183, that on you guys . pt sts his only ride home is at 1830 and sts i will have no choice but to walk home and i have wounds on my feet . pt ambulating w morgan steady gait out of triage room, appears agitated.
--- NOTE | 2021-11-22 18:33 | PC.NURSE ---
pt now screaming obscenities and pointing fingers at registration staff, pt reminded about appropriateness of language w staff.
--- NOTE | 2021-11-22 18:37 | ED_ITS ---
HPI - General Adult General Chief complaint: General Medical Stated complaint: picc line issues Time Seen by Provider: 11/22/21 16:03 Source: patient Mode of arrival: ambulatory Limitations: no limitations History of Present Illness HPI narrative: Patient is a 46 year old male presenting to the emergency department today with a clogged right upper arm PICC line. Patient states that he last used his PICC line yesterday and it went fine. Patient states that today, he realized it was clogged and his visiting nurse tried to fix it but couldn't. Patient denies any dizziness, lightheadedness, abdominal pain, nausea, vomiting, fever, chills, blurry vision, double vision, loss of vision, chest pain, difficulty breathing, shortness of breath, back pain, night sweats, pain with urination, increased urinary frequency, increased urinary urgency, blood in his urine or stool, syncope or a near syncopal episode, recent trauma or falls, bowel incontinence, bladder incontinence, bowel retention, bladder retention, or any other complaints at this time. Patient states that he has no pain around the PICC line site, no swelling around the PICC line sight, and no warmth around the PICC line sight. Onset (ago): day(s) (1) Related Data Home Medications Medication Instructions Recorded Confirmed ascorbic acid (vitamin C) 1,000 mg 500 mg PO DAILY 11/04/21 11/04/21 tablet cholecalciferol (vitamin D3) 50 50 mcg PO DAILY 11/04/21 11/04/21 mcg (2,000 unit) capsule naproxen 375 mg tablet 375 mg PO BID PRN 11/04/21 11/04/21 Previous Rx's Medication Instructions Recorded daptomycin 500 mg intravenous 780 mg IV Q24H #24 ea 11/07/21 solution nicotine 14 mg/24 hr daily 14 mg TRANSDERMAL DAILY #30 ea 11/07/21 transdermal patch Allergies Allergy/AdvReac Type Severity Reaction Status Date / Time amoxicillin [AMOXICILLIN] Allergy Severe ANAPHYLAXIS Verified 05/29/21 17:29 acetaminophen [From TYLOX] Allergy Intermediate ITCHING Verified 12/27/20 20:19 hydrocodone [HYDROCODONE] Allergy Unknown UNKNOWN Verified 05/29/21 17:29 From TYLOX Allergy Intermediate ITCHING Uncoded 06/17/20 16:22 Review of Systems Constitutional: Constitutional: Reports no additional constitutional complaints, Denies chills, Denies fever(s) and Denies night sweats Eyes: Eyes: Reports no additional eye complaints, Denies blurry vision, Denies change in vision, Denies diplopia, Denies eye discharge, Denies loss of vision and Denies eye pain ENT: Denies dizziness Cardiovascular: Cardiovascular: Reports no additional cardiovascular complaints, Denies chest pain, Denies lightheadedness, Denies Loss of Co nsciousness and Denies dyspnea Respiratory: Respiratory: Reports no additional respiratory complaints and Denies dyspnea Gastrointestinal: Gastrointestinal: Reports no additional gastrointestinal complaints, Denies abdominal pain, Denies melena, Denies hematochezia, Denies change in bowel habits and Denies change in stool character Genitourinary: Genitourinary: Reports no additional male genitourinary complaints, Denies hematuria, Denies oliguria, Denies difficulty urinating, Denies dysuria, Denies urinary frequency, Denies urinary hesitancy, Denies urinary incontinence and Denies urinary urgency Musculoskeletal: Musculoskeletal: Reports no additional musculoskeletal complaints, Denies numbness and Denies tingling Neurologic: Denies dizziness, Denies loss of vision, Denies numbness and Denies tingling Psychiatric: Psychiatric: Reports no additional psychiatric complaints Endocrine: Endocrine: Reports no additional endocrine complaints Hematologic/Lymphatic: Hematologic/Lymphatic: Reports no additional hematologic/lymphatic complaints Allergic/Immunologic: Allergic/Immunologic: Reports no additional allergic/immunologic complaints PMFSH Past Medical History Attestation statement: The following information was validated with the patient. Source: old records reviewed Medical History Acidosis, lactic Anxiety Bacterial infection due to Streptococcus, group C Cellulitis Diabetes type 2, controlled 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 High cholesterol HTN (hypertension) Posttraumatic stress disorder Right foot infection Staphylococcus aureus bacteremia Social History Social History Household Members: None Housing: House Alcohol intake: never Patient Tobacco Use Status: Current everyday Tobacco user Tobacco use type: Cigarette Cigarette Packs Per Day: 1 Cigarettes Per Day: 20.0 Second Hand Smoke Exposure: No Substance Use Type: Marijuana Advance Directives: No Advance Directives Information Provided: No service: No Current occupational status: disabled Physical Exam ED Vital Signs: Vital Signs - 24 hr 11/22/21 18:03 Temperature 98 F Pulse Rate 93 Respiratory Rate 20 Blood Pressure 119/90 H Pulse Oximetry 97 BMI result Body Mass Index 31.1 Const General: cooperative, no acute distress, alert and awake Nutritional Appearance: well nourished Orientation/consciousness: patient oriented x3 Limitations: no limitations HENMT Head: Yes normal to inspection and Yes atraumatic Ears: hearing grossly normal bilaterally and external ears normal General nose exam: Normal external nose present, no nasal discharge noted and no epistaxis Face and sinus: Yes normal facial exam, No abrasion and No laceration Mouth: Normal oral and palatal mucosa present, no drooling and no muffled voice Eyes General: appearance normal, both eyes and all related structures Periorbital: periorbital findings normal Eyelids: Yes eyelids normal Conjunctivae: conjunctivae normal Pupils: Equal, round and reactive pupils present EOM: EOMs intact bilaterally Neck Neck: Yes normal visual inspection, Yes full ROM and Yes no lymphadenopathy Chest Chest palpation & inspection: normal inspection of the chest Resp Effort & Inspection: normal respiratory effort and able to speak in complete sentences GI Inspection: Yes normal to inspection Neuro General: patient oriented x3 and moves all extremities Cranial nerves: Yes Equal, round and reactive pupils present Cognition (Neuro): normal cognition Motor exam (neuro): 5/5 motor strength present throughout Sensory Exam: Normal double simultaneous stimulation for sensation Coordination: [id number] test normal Extrem Other: PICC line in place to the right upper extremity, no signs of erythema, swelling, or warmth around the PICC line site General: Yes normal to inspection, Yes full ROM and Yes capillary refill normal Psych Appearance: grossly normal Mental Status: mental status grossly normal Affect: normal affect Attitude: cooperative Thought process: Normal thought process present Thought content: Normal thought content present Insight: Good insight present (Psych) Medical Decision Making MDM Narrative Medical decision making narrative: Patient is a 46 year old male presenting to the emergency department today with a clogged PICC line. Patient's physical exam showed a PICC line present in the right upper extremity. Patient signed out to Katie MOSHER pending the arrival of TPA from the pharmacy. As long as the patient's line flushes, he may be discharged home and continue to follow with visiting nurses. Differential Diagnosis Differential Diagnosis: occluded PICC line Medical Records Medical records reviewed: Yes I reviewed the patient's medical records. Discharge Plan Discharge Clinical Impression: Occluded PICC line Patient Disposition: Home, Self-Care Instructions: How to Flush Your PICC (Peripherally Inserted Central Catheter) (ED) Additional Instructions: Continue to follow with visiting nurses. Continue taking antibiotics as perscribed. Follow up with your primary care provider. Return to the emergency department immediately if your symptoms worsen or if you develop any dizziness, shortness of breath, difficulty breathing, chest pain, blurry vision, loss of vision, nausea, vomiting, abdominal pain, fever, chills, back pain, or any other complaints. Prescriptions: No Action ascorbic acid (vitamin C) 1,000 mg Tablet 500 mg PO DAILY 0RF naproxen 375 mg Tablet 375 mg PO BID PRN (Reason: Pain) 0RF cholecalciferol (vitamin D3) 50 mcg (2,000 unit) Capsule 50 mcg PO DAILY 0RF daptomycin 500 mg Recon Soln 780 mg IV Q24H Qty: 24 0RF nicotine 14 mg/24 hr Patch 24 Hour 14 mg transdermal DAILY Qty: 30 0RF Print Language: Taiwanese
[2021-11-22] MEDS: Alteplase Cath Clear 2 MG VIAL INTRACATH (20:10)
--- NOTE | 2021-11-22 20:55 | ED_ITS ---
HPI - General Adult General Chief complaint: General Medical Stated complaint: picc line issues Time Seen by Provider: 11/22/21 16:03 Source: patient Mode of arrival: ambulatory Limitations: no limitations Related Data Home Medications Medication Instructions Recorded Confirmed ascorbic acid (vitamin C) 1,000 mg 500 mg PO DAILY 11/04/21 11/04/21 tablet cholecalciferol (vitamin D3) 50 50 mcg PO DAILY 11/04/21 11/04/21 mcg (2,000 unit) capsule naproxen 375 mg tablet 375 mg PO BID PRN 11/04/21 11/04/21 Previous Rx's Medication Instructions Recorded daptomycin 500 mg intravenous 780 mg IV Q24H #24 ea 11/07/21 solution nicotine 14 mg/24 hr daily 14 mg TRANSDERMAL DAILY #30 ea 11/07/21 transdermal patch Allergies Allergy/AdvReac Type Severity Reaction Status Date / Time amoxicillin [AMOXICILLIN] Allergy Severe ANAPHYLAXIS Verified 05/29/21 17:29 acetaminophen [From TYLOX] Allergy Intermediate ITCHING Verified 12/27/20 20:19 hydrocodone [HYDROCODONE] Allergy Unknown UNKNOWN Verified 05/29/21 17:29 From TYLOX Allergy Intermediate ITCHING Uncoded 06/17/20 16:22 PMFSH Past Medical History Medical History Acidosis, lactic Anxiety Bacterial infection due to Streptococcus, group C Cellulitis Diabetes type 2, controlled 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 High cholesterol HTN (hypertension) Posttraumatic stress disorder Right foot infection Staphylococcus aureus bacteremia Social History Social History Household Members: None Housing: House Alcohol intake: never Patient Tobacco Use Status: Current everyday Tobacco user Tobacco use type: Cigarette Cigarette Packs Per Day: 1 Cigarettes Per Day: 20.0 Second Hand Smoke Exposure: No Substance Use Type: Marijuana Advance Directives: No Advance Directives Information Provided: No service: No Current occupational status: disabled Physical Exam ED Vital Signs: Vital Signs - 24 hr 11/22/21 18:03 Temperature 98 F Pulse Rate 93 Respiratory Rate 20 Blood Pressure 119/90 H Pulse Oximetry 97 BMI result Body Mass Index 31.1 Course Reevaluation(s) Reevaluation #1: TPA was used on clogged PICC line. Line able to flush, and able to draw back blood. Comfortable with discharge Time: 20:56 Discharge Plan Discharge Clinical Impression: Occluded PICC line Patient Disposition: Home, Self-Care Instructions: How to Flush Your PICC (Peripherally Inserted Central Catheter) (ED) Additional Instructions: Continue to follow with visiting nurses. Continue taking antibiotics as perscribed. Follow up with your primary care provider. Return to the emergency department immediately if your symptoms worsen or if you develop any dizziness, shortness of breath, difficulty breathing, chest pain, blurry vision, loss of vision, nausea, vomiting, abdominal pain, fever, chills, back pain, or any other complaints. Prescriptions: No Action ascorbic acid (vitamin C) 1,000 mg Tablet 500 mg PO DAILY 0RF naproxen 375 mg Tablet 375 mg PO BID PRN (Reason: Pain) 0RF cholecalciferol (vitamin D3) 50 mcg (2,000 unit) Capsule 50 mcg PO DAILY 0RF daptomycin 500 mg Recon Soln 780 mg IV Q24H Qty: 24 0RF nicotine 14 mg/24 hr Patch 24 Hour 14 mg transdermal DAILY Qty: 30 0RF Referrals: Physician,Unknown J [Primary Care Provider] - 2 days Print Language: Malagasy
--- NOTE | 2021-11-22 20:55 | PC.NURSE ---
PT HAS BEEN YELLING AND SWEARING AT STAFF SINCE WAITING ROOM. PT WAS INFORMED THAT WE NEEDED TO WAIT FOR HIS MEDICATION TO COME DOWN FROM PHARMACY. PT AND THEN WE COULD ADMINISTER THE MEDICATION. WHEN MEDICATION ARRIVED PT WAS TOLD THAT IT NEEDED TO SIT FOR 30 MIN AND UNCLOG THE PICC AND THEN WE WOULD DRAW BACK FOR BLOOD. PT WAS UNHAPPY THAT THE DOCTOR DID NOT INFORM HIM HE WOULD NEED TO WAIT FOR 30MIN AND AGAIN BEGAN TO SWEAR AT STAFF. AFTER 30 WE MICHOACANO BACK ON THE PICC LINE AND 5 ML OF BLOOD CAME OUT AND LINE WAS ABLE TO FLUSH. PT STATED ''HE IS OUT OF HERE AND WILL NEVER RETURN'' AND THEN HE BEGAN TO YELL AT NURSE TO GET HIM AN SURGERY TEACHER FOR HIS PICC LINE AND NURSE LEFT TO GET ONE HE KEPT YELLING AND SWEARING THAT WE SHOULD HAVE THEM ALL OVER [facility]. PT GIVEN SURGERY TEACHER AND LEFT WITH OUT SIGNING PAPERWORK SWEARING ON WAY OUT.
== END 2021-11-22 20:54 | disposition home or self-care (01) ==
PROVIDERS: Emergency Provider Emergency Medicine
DX: T82.594A Other mechanical complication of infusion catheter, initial encounter (principal); Y82.8 Other medical devices associated with adverse incidents; R78.81 Bacteremia; F17.200 Nicotine dependence, unspecified, uncomplicated
CPT/HCPCS: 99283; J2997

== ENCOUNTER 2021-11-28 13:34 | Outpatient (REF) | payer OTHER, SELFPAY ==
[2021-11-28 16:45] LABS: MANUAL DIFF FLAG NO
[2021-11-28 16:57] LABS: Basophils Absolute Auto 0.1 X10*3/uL (0.0-0.2); Basophils Percent Auto 0.4 % (0-2); Eosinophils Absolute Auto 0.1 X10*3/uL (0.0-0.4); Eosinophils Percent Auto 0.3 % (0-4); Hematocrit 52.5 % (42.0-52.0); Hemoglobin 17.9 g/dl (14.0-18.0); Imm Gran Abs Auto 0.12 X10*3/uL (0.00-0.03); Imm Gran Pct Auto 0.7 % (0.0-0.4); Lymphocytes Absolute Auto 1.8 X10*3/uL (1.2-4.9); Lymphocytes Percent Auto 11.4 % (20-40); Mean Corpuscular HGB Conc 34.1 g/dl (31.0-36.0); Mean Corpuscular Hemoglobin 29.4 pg (27.0-33.0); Mean Corpuscular Volume 86.3 fL (80.0-98.0); Mean Platelet Volume 10.1 fL (9.4-12.4); Monocytes Absolute Auto 1.2 X10*3/uL (0.1-1.2); Monocytes Percent Auto 7.5 % (2-11); Neutrophils Absolute Auto 12.9 x10*3/uL (2.0-8.3); Neutrophils Percent Auto 79.7 % (45-73); Platelet Count 343 X10*3/uL (160-400); Red Blood Count 6.08 X10*6/uL (4.60-5.80); Red Cell Distribution Width 13.8 % (11.0-16.0); White Blood Count 16.2 X10*3/uL (4.8-10.8)
== END 2021-11-28 13:35 | disposition home or self-care (01) ==
LOC: HO.HMGCLNP 13:34
PROVIDERS: Visit Provider Internal Medicine
DX: M86.9 Osteomyelitis, unspecified (principal)
CPT/HCPCS: 80053; 82550; 85025

== ENCOUNTER 2022-06-19 09:36 | Emergency (ER) | payer OTHER, SELFPAY ==
--- NOTE | ~2022-06-19 | XR_ITS ---
EXAMINATION: XR FOOT, LEFT CLINICAL INFORMATION: Wound. Assess for osteomyelitis COMPARISON: Left foot radiographs 11/03/2021 TECHNIQUE: AP, lateral, and oblique views of the left foot. FINDINGS: There is no acute or healing fracture, dislocation, destructive process. No focal periostitis. No gas tracking in soft tissues. No interval joint narrowing. XR/XR foot LT 2V IMPRESSION: -No bony destructive process. -No gas tracking in soft tissues.
--- NOTE | ~2022-06-19 | XR_ITS ---
EXAMINATION: XR FOOT, RIGHT CLINICAL INFORMATION: Right foot wound. Suspected osteomyelitis. COMPARISON: Right foot done on 09/22/2021. TECHNIQUE: AP, lateral, and oblique views of the right foot. FINDINGS: Significant soft tissue swelling and subtle radiolucencies are noted overlying the first MTP joint, may represent cellulitis, postsurgical changes or combination thereof. No definite evidence of any osseous or articular involvement to suspect septic arthritis or osteomyelitis. Follow-up alternative imaging modality including MRI may be considered for further clarification, if clinically appropriate. Incidental note is made of calcific vasculopathy of the first intertarsal space. XR/XR foot RT 2V IMPRESSION: 1. No radiographic evidence of any osteomyelitis or septic arthritis. 2. Nonspecific subtle significant soft tissue swelling and subtle radiolucencies are noted overlying the first MTP joint, may represent cellulitis, postsurgical changes, or combination thereof. Follow-up MRI with and without intravenous contrast may be considered for further clarification, if clinically appropriate.
--- NOTE | ~2022-06-19 | XR_ITS ---
EXAMINATION: XR CHEST CLINICAL INFORMATION: Chills. COMPARISON: Chest done on 11/03/2021. TECHNIQUE: Frontal view of the chest was obtained. FINDINGS: Persistent stable mild prominent bronchovascular markings are noted predominantly at both lower lobes. No definite evidence of any airspace consolidation/pneumonia. The cardiac mediastinal silhouette is within normal limits. No evidence of any pleural effusion or pneumothorax. The visualized upper abdomen is unremarkable. Overall, no significant change. XR/XR chest 1V IMPRESSION: No radiographic evidence of pneumonia, unchanged.
[2022-06-19 09:43] VITALS: BP 128/72; BP 132/84; PULSE 126; PULSE 133; O2SAT 96; O2SAT 99; BMI 31.8
--- NOTE | 2022-06-19 10:01 | ED.GENADULT ---
HPI - General Adult General Chief complaint: General Medical Stated complaint: tremors, foot wound Time Seen by Provider: 06/19/22 09:45 Source: patient and EMS Mode of arrival: EMS Limitations: no limitations History of Present Illness HPI narrative: 47-year-old male came in by ambulance for evaluation of having tremors and shivering after coming out of the shower. Patient was dropped off by EMS to the ED patient for no reason became aggravated and verbally abusive to myself and the staff in the ED and uncooperative of giving history, the interview was difficult as he guarded hostile and angry patient stated that he is very angry because he had a history of PTSD which aggravate his anxiety. After security personal left the room was able to calm the patient down and able to obtain more history from the patient. Patient is thinking might have infection in his chronic ulcer in both feet, patient also is diabetic and his blood sugar is high. The patient normally follow up with wound clinic for his bilateral foot ulcers. Patient declined SI or HI. Related Data Home Medications Medication Instructions Recorded Confirmed ascorbic acid (vitamin C) 1,000 mg 500 mg PO DAILY 11/04/21 11/04/21 tablet cholecalciferol (vitamin D3) 50 50 mcg PO DAILY 11/04/21 11/04/21 mcg (2,000 unit) capsule naproxen 375 mg tablet 375 mg PO BID PRN Pain 11/04/21 11/04/21 Previous Rx's Medication Instructions Recorded daptomycin 500 mg intravenous 780 mg IV Q24H #24 ea 11/07/21 solution nicotine 14 mg/24 hr daily 14 mg transdermal DAILY #30 ea 11/07/21 transdermal patch doxycycline hyclate 100 mg tablet 100 mg PO BID #20 tabs 06/19/22 Allergies Allergy/AdvReac Type Severity Reaction Status Date / Time amoxicillin [AMOXICILLIN] Allergy Severe ANAPHYLAXIS Verified 05/29/21 17:29 acetaminophen [From TYLOX] Allergy Intermediate ITCHING Verified 12/27/20 20:19 hydrocodone [HYDROCODONE] Allergy Unknown UNKNOWN Verified 05/29/21 17:29 From TYLOX Allergy Intermediate ITCHING Uncoded 06/17/20 16:22 Review of Systems Review of Systems: All other systems are reviewed and are negative Constitutional: Reports as per HPI and Reports no additional constitutional complaints Eyes: Reports as per HPI and Reports no additional eye complaints Reports system reviewed and no additional complaints, except as documented Cardiovascular: Reports as per HPI and Reports no additional cardiovascular complaints Respiratory: Reports as per HPI and Reports no additional respiratory complaints Gastrointestinal: Reports as per HPI and Reports no additional gastrointestinal complaints Genitourinary: Reports no additional female genitourinary complaints Musculoskeletal: Reports no additional musculoskeletal complaints Skin/Breast: Reports system reviewed and no additional complaints, except as docu Psychiatric: Reports no additional psychiatric complaints Endocrine: Reports no additional endocrine complaints Hematologic/Lymphatic: Reports no additional hematologic/lymphatic complaints Allergic/Immunologic: Reports no additional allergic/immunologic complaints Reports system reviewed and no additional complaints, except as documented and Reports Abnormal speech present [facility] Past Medical History Medical History Acidosis, lactic Anxiety Bacterial infection due to Streptococcus, group C Cellulitis Diabetes type 2, controlled 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 High cholesterol HTN (hypertension) Posttraumatic stress disorder Right foot infection Staphylococcus aureus bacteremia Social History Social History Household Members: None Housing: House Alcohol intake: never Patient Tobacco Use Status: Current everyday Tobacco user Tobacco use type: Cigarette Cigarette Packs Per Day: 1 Cigarettes Per Day: 20.0 Second Hand Smoke Exposure: No Substance Use Type: Marijuana Advance Directives: No Advance Directives Information Provided: Yes service: No Current occupational status: disabled Physical Exam ED Vital Signs: Vital Signs - 24 hr 06/19/22 09:43 06/19/22 10:25 06/19/22 10:43 Temperature 102.4 F H Pulse Rate 133 H 120 H Respiratory Rate 18 Blood Pressure 128/72 121/80 Pulse Oximetry 96 98 Oxygen Delivery Method Room Air Room Air BMI result Body Mass Index 31.8 Vital signs have been reviewed as appeared to be correct. Blood pressure normal. Heart rate elevated. Respiration rate normal. Temperature elevated. Oxygen saturation normal. Appearance: Alert. Oriented X3. No acute distress, anxious, uncooperative initially, guarded and more less hostile. Head: Normal external exam. Normocephalic. Atraumatic. No Virk signs noted. No raccoon eyes noted Eyes: PERRLA. EOMI. Conjunctiva and sclera normal. Eyelids normal. ENT: TM's Normal. Pharynx normal. Uvula midline. Moist mucous membranes. No trismus noted. No drooling noted. No muffled voice noted. Neck: Normal inspection. Neck supple. FROM. No adenopathy. Thyroid Normal. No meningeal signs. No neck mass noted. CVS: Normal heart rate and rhythm. Heart sound normal. No murmurs noted. Pulses normal throughout. Respiratory: No respiratory distress. Painless inspiration. Breath sounds normal. No wheezes/rales/rhonchi noted. Chest nontender. No accessory muscle usage noted or decreased air movement noted. Abdomen: Soft and nontender. Bowel sounds normal in all 4 quadrants. No distention noted. No organomegaly noted. No visible injury noted. Back: No CVA tenderness. Full range of motion noted. Skin: Skin warm and dry. Normal skin color. Normal skin turgor. No rashes/lesions/lacerations noted. Extremities: Bilateral chronic looking ulcers on both soles of the feet, no discharge, no redness around the wound. Neuro: Oriented X 3. Cranial nerve exam: II-XII are grossly intact No motor deficit. No sensory deficit. Reflexes normal. Course Course Course Narrative: 47-year-old male came in for evaluation after episode of shivering, patient has an infected bilateral foot ulcers, despite the patient is being very difficult with the medical staff I explained to the patient the importance of receiving antibiotics for the infected ulcer especially patient is diabetic and that may lead to amputation however patient is adamant to be discharged and take oral antibiotic because patient hates hospitals. Patient will have a visiting nurse to check on his wound tomorrow and he will see the wound clinic next week, was instructed to seek immediate medical attention if he feels worsening of the wound or discharge or fever or chills. Medical Decision Making Medical Records Medical records reviewed: Yes I reviewed the patient's medical records. Lab Data Lab results reviewed: Yes I reviewed the patient's lab results. Result diagrams: 06/19/22 10:51 06/19/22 10:32 Labs: Lab Results 06/19/22 06/19/22 06/19/22 Range/Units 10:32 10:32 10:51 WBC 12.2 H (4.8-10.8) X10*3/uL RBC 6.36 H (4.60-5.80) X10*6/uL Hgb 18.7 H (14.0-18.0) g/dl Hct 54.2 H (42.0-52.0) % MCV 85.2 (80.0-98.0) fL MCH 29.4 (27.0-33.0) pg MCHC 34.5 (31.0-36.0) g/dl RDW 13.1 (11.0-16.0) % Plt Count 226 D (160-400) X10*3/uL MPV 9.2 L (9.4-12.4) fL Immature Gran % (Auto) 0.5 H (0.0-0.4) % Neut % (Auto) 93.4 H (45-73) % Lymph % (Auto) 3.1 L (20-40) % [place] % (Auto) 2.6 (2-11) % Eos % (Auto) 0.1 (0-4) % Baso % (Auto) 0.3 (0-2) % Lymph # (Auto) 0.4 L (1.2-4.9) X10*3/uL [place] # (Auto) 0.3 (0.1-1.2) X10*3/uL Eos # (Auto) 0.0 (0.0-0.4) X10*3/uL Baso # (Auto) 0.0 (0.0-0.2) X10*3/uL Abs Immat Gran (auto) 0.06 H (0.00-0.03) X10*3/uL Absolute Neuts (auto) 11.4 H (2.0-8.3) x10*3/uL Absolute Nucleated RBC 0.000 (0.0-0.012) X10*3/uL Nucleated RBC % (auto) 0.0 (0.0-0.2) /100WBC Smear Tech's Comments VERIFIED Sodium 134 L (135-145) mmol/L Potassium 4.6 (3.3-5.1) mmol/L Chloride 102 (96-108) mmol/L Carbon Dioxide 19 L (22-29) mmol/L Anion Gap 18 (12-20) BUN 11 (9-16) mg/dL Creatinine 1.04 (0.5-1.4) mg/dL Estim Creat Clear Calc 100.1 Estimated GFR > 60 Random Glucose 227 H (60-115) mg/dL Lactic Acid (0.5-2.0) mmol/L Calcium 8.1 L D (8.4-10.2) mg/dL Total Bilirubin 0.5 (0.0-1.0) mg/dL Direct Bilirubin 0.2 (0.0-0.5) mg/dL AST 21 (5-37) U/L ALT 32 (0-40) U/L Alkaline Phosphatase 63 (39-117) U/L Troponin I High Sens 10.6 (<3.5-35.0) ng/L B-Natriuretic Peptide 13 (<100) pg/mL Total Protein 6.9 (6.5-8.0) g/dL Albumin 3.9 (3.5-5.0) g/dL Lipase 21 (8-78) U/L COVID-19 ([facility]) (Negative) COVID-19 Clin Com 06/19/22 06/19/22 Range/Units 10:51 11:20 WBC (4.8-10.8) X10*3/uL RBC (4.60-5.80) X10*6/uL Hgb (14.0-18.0) g/dl Hct (42.0-52.0) % MCV (80.0-98.0) fL MCH (27.0-33.0) pg MCHC (31.0-36.0) g/dl RDW (11.0-16.0) % Plt Count (160-400) X10*3/uL MPV (9.4-12.4) fL Immature Gran % (Auto) (0.0-0.4) % Neut % (Auto) (45-73) % Lymph % (Auto) (20-40) % [place] % (Auto) (2-11) % Eos % (Auto) (0-4) % Baso % (Auto) (0-2) % Lymph # (Auto) (1.2-4.9) X10*3/uL [place] # (Auto) (0.1-1.2) X10*3/uL Eos # (Auto) (0.0-0.4) X10*3/uL Baso # (Auto) (0.0-0.2) X10*3/uL Abs Immat Gran (auto) (0.00-0.03) X10*3/uL Absolute Neuts (auto) (2.0-8.3) x10*3/uL Absolute Nucleated RBC (0.0-0.012) X10*3/uL Nucleated RBC % (auto) (0.0-0.2) /100WBC Smear Tech's Comments Sodium (135-145) mmol/L Potassium (3.3-5.1) mmol/L Chloride (96-108) mmol/L Carbon Dioxide (22-29) mmol/L Anion Gap (12-20) BUN (9-16) mg/dL Creatinine (0.5-1.4) mg/dL Estim Creat Clear Calc Estimated GFR Random Glucose (60-115) mg/dL Lactic Acid 1.6 (0.5-2.0) mmol/L Calcium (8.4-10.2) mg/dL Total Bilirubin (0.0-1.0) mg/dL Direct Bilirubin (0.0-0.5) mg/dL AST (5-37) U/L ALT (0-40) U/L Alkaline Phosphatase (39-117) U/L Troponin I High Sens (<3.5-35.0) ng/L B-Natriuretic Peptide (<100) pg/mL Total Protein (6.5-8.0) g/dL Albumin (3.5-5.0) g/dL Lipase (8-78) U/L COVID-19 ([facility]) Negative (Negative) COVID-19 Clin Com See Note Imaging Data Chest x-ray: Attestation: I personally reviewed and interpreted this imaging study as follows: Radiologist's impression: No radiographic evidence of pneumonia, unchanged. Left foot/night foot x-ray.: Attestation: I personally reviewed and interpreted this imaging study as follows: Radiologist's impression: -No bony destructive process. -No gas tracking in soft tissues. Discharge Plan Discharge Clinical Impression: Diabetic foot infection Patient Disposition: Home, Self-Care Instructions: Diabetic Foot Ulcers (ED) Additional Instructions: Follow-up with the Wound Clinic as scheduled. Prescriptions: New doxycycline hyclate 100 mg tablet 100 mg PO BID Qty: 20 0RF No Action ascorbic acid (vitamin C) 1,000 mg Tablet 500 mg PO DAILY naproxen 375 mg Tablet 375 mg PO BID PRN (Reason: Pain) cholecalciferol (vitamin D3) 50 mcg (2,000 unit) Capsule 50 mcg PO DAILY daptomycin 500 mg Recon Soln 780 mg IV Q24H Qty: 24 0RF nicotine 14 mg/24 hr Patch 24 Hour 14 mg transdermal DAILY Qty: 30 0RF Referrals: Physician,Unknown J [Primary Care Provider] -
[2022-06-19] MEDS: 0.9 % Sodium Chloride 1,000 ML 999 ML IV (10:03)
--- NOTE | 2022-06-19 10:15 | PC.NURSE ---
PT yelling at staff, provider, and security. Refusing to give information regarding ED visit.
[2022-06-19 10:25] VITALS: BP 121/80; PULSE 120; RESP 18; O2SAT 98
[2022-06-19 10:43] VITALS: TEMP 39.1
[2022-06-19 11:02] LABS: Basophils Percent Auto 0.3 % (0-2); Eosinophils Percent Auto 0.1 % (0-4); Hematocrit 54.2 % (42.0-52.0); Hemoglobin 18.7 g/dl (14.0-18.0); Imm Gran Abs Auto 0.06 X10*3/uL (0.00-0.03); Imm Gran Pct Auto 0.5 % (0.0-0.4); Lymphocytes Absolute Auto 0.4 X10*3/uL (1.2-4.9); Lymphocytes Percent Auto 3.1 % (20-40); MANUAL DIFF FLAG SCAN; Mean Corpuscular HGB Conc 34.5 g/dl (31.0-36.0); Mean Corpuscular Hemoglobin 29.4 pg (27.0-33.0); Mean Corpuscular Volume 85.2 fL (80.0-98.0); Mean Platelet Volume 9.2 fL (9.4-12.4); Monocytes Absolute Auto 0.3 X10*3/uL (0.1-1.2); Monocytes Percent Auto 2.6 % (2-11); Neutrophils Absolute Auto 11.4 x10*3/uL (2.0-8.3); Neutrophils Percent Auto 93.4 % (45-73); PLT CLUMP 1; Red Blood Count 6.36 X10*6/uL (4.60-5.80); Red Cell Distribution Width 13.1 % (11.0-16.0); SCAN SMEAR FLAG 1
[2022-06-19 11:04] LABS: Alanine Aminotransferase 32 U/L (0-40); Albumin Level 3.9 g/dL (3.5-5.0); Alkaline Phosphatase 63 U/L (39-117); Anion Gap 18 (12-20); Aspartate Amino Transferase 21 U/L (5-37); Bilirubin Direct 0.2 mg/dL (0.0-0.5); Bilirubin Total 0.5 mg/dL (0.0-1.0); Blood Urea Nitrogen 11 mg/dL (9-16); Calcium 8.1 mg/dL (8.4-10.2); Carbon Dioxide 19 mmol/L (22-29); Chloride 102 mmol/L (96-108); Creatinine Clr Calc Pharmacy 100.1; Estimated Glomerular Filt Rate > 60; Glucose Random 227 mg/dL (60-115); Lipase 21 U/L (8-78); Potassium 4.6 mmol/L (3.3-5.1); Sodium 134 mmol/L (135-145); Total Protein 6.9 g/dL (6.5-8.0)
[2022-06-19 11:05] LABS: Troponin-I High Sensitivity 10.6 ng/L (<3.5-35.0)
[2022-06-19 11:23] LABS: COVID-19 Test Negative (Negative); IDNOW Serial# 16C4AD1C
[2022-06-19] MEDS: Doxycycline Hyclate 100 MG in 0.9 % Sodium Chloride 250 ML 166.67 MG IV (11:33)
[2022-06-19 11:34] LABS: Platelet Count 226 X10*3/uL (160-400); White Blood Count 12.2 X10*3/uL (4.8-10.8)
[2022-06-19 11:35] LABS: SLIDE REVIEW VERIFIED
[2022-06-19 11:43] LABS: Lactic Acid 1.6 mmol/L (0.5-2.0)
[2022-06-19 11:47] LABS: B Type Natriuretic Peptide 13 pg/mL (<100)
[2022-06-19] MEDS: vancomycin HCL 1,250 MG in 0.9 % Sodium Chloride 250 ML 166.67 MG IV (11:49)
[2022-06-19 13:44] LABS: Influenza A PCR NEGATIVE (Negative); Influenza B PCR NEGATIVE (Negative); Resp Syncy Virus RNA Qual PCR NEGATIVE (Negative); SARS COV2 PCR INHOUSE NEGATIVE (Negative)
[2022-06-19] MEDS: Ibuprofen 200 MG TABLET PO (13:57)
== END 2022-06-19 14:05 | disposition home or self-care (01) ==
PROVIDERS: Emergency Provider Emergency Medicine
DX: E11.621 Type 2 diabetes mellitus with foot ulcer (principal); L97.529 Non-pressure chronic ulcer of other part of left foot with unspecified severity; L97.519 Non-pressure chronic ulcer of other part of right foot with unspecified severity; R45.1 Restlessness and agitation; E78.00 Pure hypercholesterolemia, unspecified; I10 Essential (primary) hypertension; F17.210 Nicotine dependence, cigarettes, uncomplicated; F12.90 Cannabis use, unspecified, uncomplicated
CPT/HCPCS: 0241U; 36415; 71045; 73620; 80048; 80076; 83605; 83690; 83880; 84484; 85025; 87040; 87077; 87186; 87205; 87635; 96361; 96365; 96366; 96375; 99284; J3370

== ENCOUNTER 2022-06-24 10:01 | Emergency (ER) | payer OTHER, SELFPAY ==
[2022-06-24 11:17] LABS: Lactic Acid 1.9 mmol/L (0.5-2.0)
[2022-06-24 11:18] VITALS: BP 127/80; PULSE 72; RESP 18; TEMP 36.6; O2SAT 98
--- NOTE | 2022-06-24 11:18 | ED.GENADULT ---
HPI - General Adult General Chief complaint: General Medical Stated complaint: Staph infection in blood Time Seen by Provider: 06/24/22 10:07 Source: patient Mode of arrival: ambulatory History of Present Illness HPI narrative: 47-year-old male with past medical history of diabetes, diabetic foot ulcers, anxiety, HTN, HLD, PTSD, presenting today ED as called back due to 2/2 sets of positive blood cultures growing staph aureus. Patient was evaluated in our ED on 06/19 for infected ulcers, started on doxycycline. Denies fever, chills, drainage from area, malodor, CP/SOB, abdominal pain, nausea/vomiting Patient very hostile during evaluation, will not let this technical report writer evaluate wounds/source of infection as They will not be rewrapped properly, and MRSA growth in the air here. Onset (ago): day(s) Related Data Home Medications Medication Instructions Recorded Confirmed ascorbic acid (vitamin C) 1,000 mg 500 mg PO DAILY 11/04/21 06/24/22 tablet cholecalciferol (vitamin D3) 50 50 mcg PO DAILY 11/04/21 06/24/22 mcg (2,000 unit) capsule dulaglutide 0.75 mg/0.5 mL 0.5 ml subcut MO 06/24/22 06/24/22 subcutaneous pen injector (Trulicity) glipizide 5 mg tablet 1 tab PO BID 06/24/22 06/24/22 Previous Rx's Medication Instructions Recorded doxycycline hyclate 100 mg tablet 100 mg PO BID #20 tabs 06/19/22 Allergies Allergy/AdvReac Type Severity Reaction Status Date / Time amoxicillin [AMOXICILLIN] Allergy Severe ANAPHYLAXIS Verified 05/29/21 17:29 acetaminophen [From TYLOX] Allergy Intermediate ITCHING Verified 12/27/20 20:19 hydrocodone [HYDROCODONE] Allergy Unknown UNKNOWN Verified 05/29/21 17:29 From TYLOX Allergy Intermediate ITCHING Uncoded 06/17/20 16:22 Review of Systems Review of Systems: Constitutional: No Fever, No Chills, No Fatigue, No Malaise ENT/Mouth: No Ear Pain, No Nasal Congestion, No sore throat, No Rhinorrhea, No Swallowing Difficulty Eyes: No Eye Pain, No Swelling, No Redness Cardiovascular: No Chest Pain, No SOB, No Edema Respiratory: No Cough, No Sputum, No Dyspnea Gastrointestinal: No Nausea, No Vomiting, No Diarrhea, No Constipation, No Abdominal pain Genitourinary:No Dysuria, No Urinary Frequency Musculoskeletal: No joint pain, No Myalgias, No Joint Swelling Skin: + Skin Lesions, No rash Neuro: No Weakness, No Numbness, No Headache Yes all other systems are reviewed and are negative Constitutional: Constitutional: Reports as per [facility] Past Medical History Attestation statement: The following information was validated with the patient. Medical History Acidosis, lactic Anxiety Bacterial infection due to Streptococcus, group C Cellulitis Diabetes type 2, controlled 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 High cholesterol HTN (hypertension) Posttraumatic stress disorder Right foot infection Staphylococcus aureus bacteremia Social History Social History Household Members: None Housing: House Alcohol intake: never Patient Tobacco Use Status: Current everyday Tobacco user Tobacco use type: Cigarette Cigarette Packs Per Day: 1 Cigarettes Per Day: 20.0 Smoked in Last 30 Days: Yes Second Hand Smoke Exposure: No Use of substances other than those prescribed or required for medical reasons: Yes Substance Use Type: Marijuana Advance Directives: No Advance Directives Information Provided: No service: No Current occupational status: disabled Physical Exam ED Vital Signs: Vital Signs - 24 hr 06/24/22 11:18 06/24/22 11:45 06/24/22 14:07 Temperature 98 F 98.7 F 97.8 F Pulse Rate 72 83 72 Respiratory Rate 18 18 18 Blood Pressure 127/80 120/76 139/90 H Pulse Oximetry 98 99 99 Oxygen Delivery Method Room Air Room Air Room Air BMI result Body Mass Index 81.3 Const General: cooperative, healthy appearing and no acute distress Orientation/consciousness: patient oriented x3 Limitations: no limitations HENMT Head: Yes normal to inspection and Yes atraumatic Ears: hearing grossly normal bilaterally General nose exam: Normal external nose present Face and sinus: Yes normal facial exam Eyes General: appearance normal, both eyes and all related structures EOM: EOMs intact bilaterally Neck Neck: Yes normal visual inspection and Yes no meningeal signs Resp Effort & Inspection: normal respiratory effort and no respiratory distress Auscultation: clear to auscultation bilaterally Cardio Rate: regular rate Heart sounds: S1 normal heart sound present and S2 normal heart sound present Skin Rashes: no rashes Neuro General: patient oriented x3, tone normal and no meningeal signs Gait exam (Neuro): Normal gait present Extrem Other: Please refer to images above of bilateral plantar wounds. Appear appropriately healing, no malodor, active drainage, fluctuance or induration. No surrounding cellulitis Course Course Course Narrative: -1210--was able to secure calcium alginate from nursing materials management supervisor. wounds pictured above. Appear appropriately healing without active infection Patient admitted for further management -no leukocytosis. Labs otherwise unremarkable/at patient's baseline Medical Decision Making [facility] Narrative Medical decision making narrative: 47-year-old male with past medical history of diabetes, diabetic foot ulcers, anxiety, HTN, HLD, PTSD, presenting today ED as called back due to 2/2 sets of positive blood cultures growing staph aureus. On exam vital signs stable, NAD, nontoxic appearing, unable to evaluate wounds due to noncompliance. Concern for bacteremia Plan: Repeat labs, lactic/blood cultures, IV antibiotics, admission Attempting to get Calcium alginate from materials management supervisor Medical Records Medical records reviewed: Yes I reviewed the patient's medical records. Lab Data Lab results reviewed: Yes I reviewed the patient's lab results. Result diagrams: 06/24/22 13:21 06/24/22 13:21 Labs: Lab Results 06/24/22 06/24/22 06/24/22 Range/Units 10:46 13:21 13:21 WBC 10.5 (4.8-10.8) X10*3/uL RBC 6.03 H (4.60-5.80) X10*6/uL Hgb 18.3 H (14.0-18.0) g/dl Hct 51.2 (42.0-52.0) % MCV 84.9 (80.0-98.0) fL MCH 30.3 (27.0-33.0) pg MCHC 35.7 (31.0-36.0) g/dl RDW 12.9 (11.0-16.0) % Plt Count 287 D (160-400) X10*3/uL MPV 9.1 L (9.4-12.4) fL Immature Gran % (Auto) 0.5 H (0.0-0.4) % Neut % (Auto) 61.3 (45-73) % Lymph % (Auto) 28.4 (20-40) % [place] % (Auto) 5.5 (2-11) % Eos % (Auto) 3.7 (0-4) % Baso % (Auto) 0.6 (0-2) % Lymph # (Auto) 3.0 (1.2-4.9) X10*3/uL [place] # (Auto) 0.6 (0.1-1.2) X10*3/uL Eos # (Auto) 0.4 (0.0-0.4) X10*3/uL Baso # (Auto) 0.1 (0.0-0.2) X10*3/uL Abs Immat Gran (auto) 0.05 H (0.00-0.03) X10*3/uL Absolute Neuts (auto) 6.4 (2.0-8.3) x10*3/uL Absolute Nucleated RBC 0.000 (0.0-0.012) X10*3/uL Nucleated RBC % (auto) 0.0 (0.0-0.2) /100WBC Sodium 137 (135-145) mmol/L Potassium 4.5 (3.3-5.1) mmol/L Chloride 104 (96-108) mmol/L Carbon Dioxide 22 (22-29) mmol/L Anion Gap 16 (12-20) BUN 13 (9-16) mg/dL Creatinine 0.80 (0.5-1.4) mg/dL Estim Creat Clear Calc TNP Estimated GFR > 60 Random Glucose 145 H D (60-115) mg/dL Lactic Acid 1.9 (0.5-2.0) mmol/L Calcium 8.9 D (8.4-10.2) mg/dL Magnesium 2.0 (1.6-2.6) mg/dL Total Bilirubin 0.3 (0.0-1.0) mg/dL Direct Bilirubin 0.2 (0.0-0.5) mg/dL AST 28 (5-37) U/L ALT 50 H (0-40) U/L Alkaline Phosphatase 67 (39-117) U/L C-Reactive Protein 0.89 H (< or = 0.50) mg/dL Total Protein 7.1 (6.5-8.0) g/dL Albumin 4.0 (3.5-5.0) g/dL COVID-19 ([facility]) (Negative) COVID-19 Clin Com 06/24/22 Range/Units 13:21 WBC (4.8-10.8) X10*3/uL RBC (4.60-5.80) X10*6/uL Hgb (14.0-18.0) g/dl Hct (42.0-52.0) % MCV (80.0-98.0) fL MCH (27.0-33.0) pg MCHC (31.0-36.0) g/dl RDW (11.0-16.0) % Plt Count (160-400) X10*3/uL MPV (9.4-12.4) fL Immature Gran % (Auto) (0.0-0.4) % Neut % (Auto) (45-73) % Lymph % (Auto) (20-40) % [place] % (Auto) (2-11) % Eos % (Auto) (0-4) % Baso % (Auto) (0-2) % Lymph # (Auto) (1.2-4.9) X10*3/uL [place] # (Auto) (0.1-1.2) X10*3/uL Eos # (Auto) (0.0-0.4) X10*3/uL Baso # (Auto) (0.0-0.2) X10*3/uL Abs Immat Gran (auto) (0.00-0.03) X10*3/uL Absolute Neuts (auto) (2.0-8.3) x10*3/uL Absolute Nucleated RBC (0.0-0.012) X10*3/uL Nucleated RBC % (auto) (0.0-0.2) /100WBC Sodium (135-145) mmol/L Potassium (3.3-5.1) mmol/L Chloride (96-108) mmol/L Carbon Dioxide (22-29) mmol/L Anion Gap (12-20) BUN (9-16) mg/dL Creatinine (0.5-1.4) mg/dL Estim Creat Clear Calc Estimated GFR Random Glucose (60-115) mg/dL Lactic Acid (0.5-2.0) mmol/L Calcium (8.4-10.2) mg/dL Magnesium (1.6-2.6) mg/dL Total Bilirubin (0.0-1.0) mg/dL Direct Bilirubin (0.0-0.5) mg/dL AST (5-37) U/L ALT (0-40) U/L Alkaline Phosphatase (39-117) U/L C-Reactive Protein (< or = 0.50) mg/dL Total Protein (6.5-8.0) g/dL Albumin (3.5-5.0) g/dL COVID-19 ([facility]) Negative (Negative) COVID-19 Clin Com See Note Discharge Plan Discharge Clinical Impression: Staphylococcus aureus bacteremia Patient Disposition: Admitted As Inpatient
[2022-06-24 11:45] VITALS: BP 120/76; PULSE 83; RESP 18; TEMP 37.1; O2SAT 99
--- NOTE | 2022-06-24 12:38 | PC.NURSE ---
Pt vitals are stable. Pt needs labs but this RN was not able to get it. RN spoke with another RN to assists but pt was rude to her. RN spoke with provider and provider will speak with the doctor for a possible catheter. will continue to monitor.
--- NOTE | 2022-06-24 13:28 | PHA.MEDREC ---
Pharmacy Consult ? Medication Reconciliation Pharmacy has completed the medication reconciliation. Patient states he has poor adherence but was able to verify meds. Patient was very ruude. Taking abx as prescribed and trulicty every sunday or sunday. Thanks Rhys
[2022-06-24 13:29] LABS: MANUAL DIFF FLAG NO
[2022-06-24 13:30] LABS: Basophils Absolute Auto 0.1 X10*3/uL (0.0-0.2); Basophils Percent Auto 0.6 % (0-2); Eosinophils Absolute Auto 0.4 X10*3/uL (0.0-0.4); Eosinophils Percent Auto 3.7 % (0-4); Hematocrit 51.2 % (42.0-52.0); Hemoglobin 18.3 g/dl (14.0-18.0); Imm Gran Abs Auto 0.05 X10*3/uL (0.00-0.03); Imm Gran Pct Auto 0.5 % (0.0-0.4); Lymphocytes Percent Auto 28.4 % (20-40); Mean Corpuscular HGB Conc 35.7 g/dl (31.0-36.0); Mean Corpuscular Hemoglobin 30.3 pg (27.0-33.0); Mean Corpuscular Volume 84.9 fL (80.0-98.0); Mean Platelet Volume 9.1 fL (9.4-12.4); Monocytes Absolute Auto 0.6 X10*3/uL (0.1-1.2); Monocytes Percent Auto 5.5 % (2-11); Neutrophils Absolute Auto 6.4 x10*3/uL (2.0-8.3); Neutrophils Percent Auto 61.3 % (45-73); Platelet Count 287 X10*3/uL (160-400); Red Blood Count 6.03 X10*6/uL (4.60-5.80); Red Cell Distribution Width 12.9 % (11.0-16.0); White Blood Count 10.5 X10*3/uL (4.8-10.8)
[2022-06-24] MEDS: 0.9 % Sodium Chloride 1,000 ML 999 ML IV (13:30)
[2022-06-24] MEDS: Doxycycline Hyclate 100 MG in 0.9 % Sodium Chloride 250 ML 166.67 MG IV (13:34)
[2022-06-24 13:52] LABS: COVID-19 Test Negative (Negative)
--- NOTE | 2022-06-24 13:52 | P.HPHOSP_ITS ---
History of Present Illness Date of Service: 06/24/22 Attending physician on admission: Beata Dobson Chief Complaint: Positive blood cultures This is a 47-year-old male with a history of diabetes who was seen in the emergency department on June 19 for infected foot ulcers. He was started on oral doxycycline and discharged home. His blood cultures returned positive and therefore he was called to return to the emergency department / blood cultures from June 19 are growing Staph aureus resistant to penicillin. During his emergency room visit on the as as today the patient has been hostile, rude and verbally abusive toward staff including this provide. It was difficult to obtain a history for this reason. He states that he has been feeling ?great? since he was started on doxycycline and can not understand why he needs to stay in the hospital. He is angry for having blood drawn, he is angry because ?no one is explaining what is going on.? Attempted to educate patient on multiple occasions as to why IV antibiotics are important as well as drawing blood work however he frequently interrupted and did not allow effective communication and reported that we are all incompetent. In the emergency department today he was afebrile. Workup revealed no leukocytosis. He was given a dose of IV doxycycline and the decision was made to admit him to the [facility] for further management. Review of Systems Review of Systems: Unable to obtain review of systems - patient uncooperative [facility] Medical History Acidosis, lactic Anxiety Bacterial infection due to Streptococcus, group C Cellulitis Diabetes type 2, controlled 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 High cholesterol HTN (hypertension) Posttraumatic stress disorder Right foot infection Staphylococcus aureus bacteremia Pertinent family history: attempted to obtain however, pt uncooperative Social History Household Members: None Housing: House Alcohol intake: never Patient Tobacco Use Status: Current everyday Tobacco user Tobacco use type: Cigarette Cigarette Packs Per Day: 1 Cigarettes Per Day: 20.0 Smoked in Last 30 Days: Yes Second Hand Smoke Exposure: No Use of substances other than those prescribed or required for medical reasons: Yes Substance Use Type: Marijuana Advance Directives: No Advance Directives Information Provided: No service: No Current occupational status: disabled Meds Allergies Allergy/AdvReac Type Severity Reaction Status Date / Time amoxicillin [AMOXICILLIN] Allergy Severe ANAPHYLAXIS Verified 05/29/21 17:29 acetaminophen [From TYLOX] Allergy Intermediate ITCHING Verified 12/27/20 20:19 hydrocodone [HYDROCODONE] Allergy Unknown UNKNOWN Verified 05/29/21 17:29 From TYLOX Allergy Intermediate ITCHING Uncoded 06/17/20 16:22 Active Medications: Current Medications Ascorbic Acid (Ascorbic Acid 500 Mg Tablet) 500 mg PO DAILY [facility] Non-Formulary Medication (Dulaglutide [Trulicity]) 0.5 ml SUBCUT MO [facility] Pharmacy Consult (Consult Rx Perform Med Rec) 1 each MISCELLANE ONCE PRN PRN Reason: Consult order Sodium Chloride (0.9 % Sodium Chloride Flush 3 Ml Syringe) 3 ml [facility] Vitamin D (Cholecalciferol (Vitamin D3) 25 Mcg Tablet) 50 mcg PO DAILY [facility] Home Medications Medication Instructions Recorded Confirmed Last Taken Type ascorbic acid (vitamin C) 1,000 mg 500 mg PO DAILY 11/04/21 06/24/22 Unknown History tablet cholecalciferol (vitamin D3) 50 50 mcg PO DAILY 11/04/21 06/24/22 Unknown History mcg (2,000 unit) capsule dulaglutide 0.75 mg/0.5 mL 0.5 ml subcut MO 06/24/22 06/24/22 06/19/22 History subcutaneous pen injector (Trulicity) glipizide 5 mg tablet 1 tab PO BID 06/24/22 06/24/22 06/23/22 History Physical Exam Vital Signs and Narrative: Vital Signs: Last Vital Signs Temp 98.7 F 06/24/22 11:45 Pulse 83 06/24/22 11:45 Resp 18 06/24/22 11:45 BP 120/76 06/24/22 11:45 Pulse Ox 99 06/24/22 11:45 O2 Del Method 06/24/22 11:45 BMI result Body Mass Index 0.0 Const: Nutritional Appearance: average body habitus Orientation/consciousness: patient oriented x3 Resp: Effort & Inspection: normal respiratory effort, able to speak in complete sentences and no use of accessory muscles Neuro: General: patient oriented x3 Extrem: Other: moving all four extremities would not allow me to remove socks to evaluate wounds since it had already been done by the ED provider; please see ED notes for pictures Results Labs CBC and Chem 7: 06/24/22 13:21 06/24/22 13:21 Labs: Laboratory Results - last 24 hr 06/24/22 06/24/22 06/24/22 10:46 13:21 13:21 MCV 84.9 MCH 30.3 MCHC 35.7 RDW 12.9 Plt Count 287 D MPV 9.1 L Immature Gran % (Auto) 0.5 H Neut % (Auto) 61.3 Lymph % (Auto) 28.4 [place] % (Auto) 5.5 Eos % (Auto) 3.7 Baso % (Auto) 0.6 Lymph # (Auto) 3.0 [place] # (Auto) 0.6 Eos # (Auto) 0.4 Baso # (Auto) 0.1 Abs Immat Gran (auto) 0.05 H Absolute Neuts (auto) 6.4 Absolute Nucleated RBC 0.000 Nucleated RBC % (auto) 0.0 Lactic Acid 1.9 COVID-19 ([facility]) Negative COVID-19 Clin Com See Note Assessment and Plan (1) Staphylococcus aureus bacteremia: Status: Acute Plan 46yo M with chronic but largely healed right foot wounds presenting with cellulitis of right foot with lymphangitic streaking, left AMA from ED yesterday but called back due to Gram-positive bacteremia staph bacteremia secondary to diabetic foot infection/ulcers (b/l foot ulcers) 2/2 Blood cultures positive from 06/19- growing staph aureus resistant to penicillin No evidence of sepsis -will start IV vancomycin -follow surveillance BCx -TTE to r/o IE -ID consult -may need MRI to eval for osteo, will check ESR, CRP -will need midline for long chain beamer abx when blood cultures are negative DM2 on Trulicity at baseline - NF, on hold glipizide on hold while inpatient -SSI, POCs VTE ppx -LMWH full code attending - dr. cardenas Given Staph bacteremia and need for IV antibiotics, further workup and specialist evaluation patient will likely require 2 minute Seen hospital. Quality Stroke Does the patient have a stroke diagnosis?: No VTE Prior VTE?: No VTE Risk Level:: Medical - moderate - high VTE Device Contraindication: Treatment Not Indicated VTE Drug Contraindication: N/A - Med Ordered
[2022-06-24 13:55] LABS: Alanine Aminotransferase 50 U/L (0-40); Alkaline Phosphatase 67 U/L (39-117); Anion Gap 16 (12-20); Aspartate Amino Transferase 28 U/L (5-37); Bilirubin Direct 0.2 mg/dL (0.0-0.5); Bilirubin Total 0.3 mg/dL (0.0-1.0); Blood Urea Nitrogen 13 mg/dL (9-16); Calcium 8.9 mg/dL (8.4-10.2); Carbon Dioxide 22 mmol/L (22-29); Chloride 104 mmol/L (96-108); Estimated Glomerular Filt Rate > 60; Glucose Random 145 mg/dL (60-115); Potassium 4.5 mmol/L (3.3-5.1); Sodium 137 mmol/L (135-145); Total Protein 7.1 g/dL (6.5-8.0)
[2022-06-24 14:07] VITALS: BP 139/90; PULSE 72; RESP 18; TEMP 36.6; O2SAT 99
[2022-06-24 14:10] VITALS: BMI 36.9
[2022-06-24 14:36] LABS: C Reactive Protein 0.89 mg/dL (< or = 0.50)
--- NOTE | 2022-06-24 15:14 | PC.NURSE ---
Pt is being belligerent, he was swearing, and denies meds that was order. Pt is also denying the diet order. RN will send a tiger text to his provider. Will continue ti monitor.
[2022-06-24 15:18] LABS: Erythrocyte Sedimentation Rate 9 MM/HR (0-15)
[2022-06-24 15:27] LABS: Glucose, Whole Blood 100 mg/dL (60-115)
[2022-06-24 15:33] VITALS: BP 122/79; PULSE 80; RESP 16; TEMP 36.7; O2SAT 99
--- NOTE | 2022-06-24 15:36 | PC.NURSE ---
Addendum entered by Jemima Adler 06/24/22 15:40: Pt denies to ambulate. Original Note: Pt V/S are stable, afribile, pt asked for tuna sandwich but there was no available.Pt POC is 100, Pt denies eating diabetic food. Pt asked to be d/c provider SAY Lane was notified. Will continue to monitor.
--- NOTE | 2022-06-24 17:48 | PC.NURSE ---
patient refused vanco, refusing to stay, provider was notified, pt yelling/angry and calling this nurse profanity, pt is currently cantankerous and is leaving ama- provider is aware, pt was asked to wait to sign ama forms and refused.
== END 2022-06-24 21:30 | disposition left against medical advice (07) ==
PROVIDERS: Physician Assistant; Physician Assistant Medical
DX: R78.81 Bacteremia (principal); B95.61 Methicillin susceptible Staphylococcus aureus infection as the cause of diseases classified elsewhere; E11.621 Type 2 diabetes mellitus with foot ulcer; L97.429 Non-pressure chronic ulcer of left heel and midfoot with unspecified severity; L97.419 Non-pressure chronic ulcer of right heel and midfoot with unspecified severity; R45.1 Restlessness and agitation; I10 Essential (primary) hypertension; E78.00 Pure hypercholesterolemia, unspecified; Z79.84 Long term (current) use of oral hypoglycemic drugs; Z20.822 Contact with and (suspected) exposure to COVID-19
CPT/HCPCS: 80048; 80076; 82947; 83605; 83735; 85025; 85652; 86140; 87040; 87635; 96365; 96366; 99284

== ENCOUNTER → 2022-06-30 13:01 | Outpatient (BNVA) | payer OTHER, SELFPAY | PROVIDERS: Visit Provider Internal Medicine | DX: R78.81 Bacteremia (principal); B95.5 Unspecified streptococcus as the cause of diseases classified elsewhere; B95.61 Methicillin susceptible Staphylococcus aureus infection as the cause of diseases classified elsewhere | CPT/HCPCS: 99211 ==

== ENCOUNTER 2022-07-02 15:23 | Emergency (ER) | payer OTHER, SELFPAY ==
[2022-07-02 15:42] VITALS: BP 107/72; PULSE 86; RESP 16; TEMP 36.3; O2SAT 98; BMI 29.9
[2022-07-02 18:07] LABS: MANUAL DIFF FLAG NO
[2022-07-02 18:09] LABS: Basophils Absolute Auto 0.1 X10*3/uL (0.0-0.2); Eosinophils Percent Auto 0.1 % (0-4); Hemoglobin 18.7 g/dl (14.0-18.0); Imm Gran Abs Auto 0.03 X10*3/uL (0.00-0.03); Imm Gran Pct Auto 0.3 % (0.0-0.4); Lymphocytes Absolute Auto 2.8 X10*3/uL (1.2-4.9); Mean Corpuscular HGB Conc 33.9 g/dl (31.0-36.0); Mean Corpuscular Hemoglobin 29.2 pg (27.0-33.0); Mean Corpuscular Volume 86.1 fL (80.0-98.0); Mean Platelet Volume 8.5 fL (9.4-12.4); Monocytes Absolute Auto 0.7 X10*3/uL (0.1-1.2); Monocytes Percent Auto 7.6 % (2-11); Neutrophils Absolute Auto 5.8 x10*3/uL (2.0-8.3); Platelet Count 323 X10*3/uL (160-400); Red Cell Distribution Width 13.2 % (11.0-16.0); White Blood Count 9.5 X10*3/uL (4.8-10.8)
[2022-07-02 18:13] LABS: Hematocrit 55.1 % (42.0-52.0)
--- NOTE | 2022-07-02 18:17 | ED.GENADULT ---
HPI - General Adult General Chief complaint: General Medical Stated complaint: bacteria infection in blood Time Seen by Provider: 07/02/22 16:29 Source: patient Mode of arrival: ambulatory Limitations: no limitations History of Present Illness HPI narrative: Patient's history of diabetes nonhealing right foot wound with staph bacteremia admitted here before received IV antibiotic went against medical advise and continued p.o. antibiotics seen by ID doctor 3 days ago advised to go to the hospital patient comes here saying that his wound is getting better does not want to show the wound does not believe that he has infection was very argumentative and not sure why is he here Related Data Home Medications Medication Instructions Recorded Confirmed ascorbic acid (vitamin C) 1,000 mg 500 mg PO DAILY 11/04/21 06/24/22 tablet cholecalciferol (vitamin D3) 50 50 mcg PO DAILY 11/04/21 06/24/22 mcg (2,000 unit) capsule dulaglutide 0.75 mg/0.5 mL 0.5 ml subcut MO 06/24/22 06/24/22 [facility] glipizide 5 mg tablet 1 tab PO BID 06/24/22 06/24/22 Previous Rx's Medication Instructions Recorded doxycycline hyclate 100 mg tablet 100 mg PO BID #20 tabs 06/19/22 Allergies Allergy/AdvReac Type Severity Reaction Status Date / Time amoxicillin [AMOXICILLIN] Allergy Severe ANAPHYLAXIS Verified 06/30/22 13:12 oxycodone [From Tylox] Allergy Intermediate Itching Verified 06/30/22 13:14 hydrocodone [HYDROCODONE] Allergy Unknown UNKNOWN Verified 06/30/22 13:12 From TYLOX Allergy Intermediate ITCHING Uncoded 06/17/20 16:22 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 High cholesterol HTN (hypertension) Posttraumatic stress disorder Right foot infection Staphylococcus aureus bacteremia Social History Social History Household Members: None Housing: House Alcohol intake: never Patient Tobacco Use Status: Current everyday Tobacco user Tobacco use type: Cigarette Cigarette Packs Per Day: 1 Cigarettes Per Day: 20.0 Second Hand Smoke Exposure: No Substance Use Type: Marijuana Advance Directives: No Advance Directives Information Provided: Yes service: No Current occupational status: disabled Physical Exam ED Vital Signs: Vital Signs - 24 hr 07/02/22 15:42 07/02/22 18:32 Temperature 97.3 F Pulse Rate 86 Respiratory Rate 16 Blood Pressure 107/72 Pulse Oximetry 98 Oxygen Delivery Method Room Air Room Air BMI result Body Mass Index 29.9 Appearance: Alert. Oriented X3. No acute distress. Eyes: PERRLA, No Nystagmus ENT: Pharynx normal. Oral Mucosa moist Neck: Normal inspection. Neck supple. CVS: Normal heart rate and rhythm. Pulses normal. Respiratory: No respiratory distress. Equal air entry bilateral, no wheezing/rales/rhonchi Abdomen: Soft and nontender. Bowel sounds are present, no mass palpable, no CVA tenderness Skin: Skin warm and dry. Normal skin color. Normal skin turgor. Extremities: No lower extremity edema. No calf tenderness patient refused to show the wound Neuro: Oriented X 3. No motor deficit. No sensory deficit.No cerebellar signs , cranial nerves II-XII intact Medical Decision Making MDM Narrative Medical decision making narrative: Patient very argumentative refusing to get admitted refusing to get IV antibiotics labs were done which were stable patient eloped from the ER Lab Data Lab results reviewed: Yes I reviewed the patient's lab results. Result diagrams: 07/02/22 18:01 07/02/22 18:01 Labs: Lab Results 07/02/22 07/02/22 07/02/22 Range/Units 18:01 18:01 18:01 WBC 9.5 (4.8-10.8) X10*3/uL RBC 6.40 H (4.60-5.80) X10*6/uL Hgb 18.7 H (14.0-18.0) g/dl Hct 55.1 H (42.0-52.0) % MCV 86.1 (80.0-98.0) fL MCH 29.2 (27.0-33.0) pg MCHC 33.9 (31.0-36.0) g/dl RDW 13.2 (11.0-16.0) % Plt Count 323 (160-400) X10*3/uL MPV 8.5 L (9.4-12.4) fL Immature Gran % (Auto) 0.3 (0.0-0.4) % Neut % (Auto) 61.0 (45-73) % Lymph % (Auto) 30.0 (20-40) % [place] % (Auto) 7.6 (2-11) % Eos % (Auto) 0.1 (0-4) % Baso % (Auto) 1.0 (0-2) % Lymph # (Auto) 2.8 (1.2-4.9) X10*3/uL [place] # (Auto) 0.7 (0.1-1.2) X10*3/uL Eos # (Auto) 0.0 (0.0-0.4) X10*3/uL Baso # (Auto) 0.1 (0.0-0.2) X10*3/uL Abs Immat Gran (auto) 0.03 (0.00-0.03) X10*3/uL Absolute Neuts (auto) 5.8 (2.0-8.3) x10*3/uL Absolute Nucleated RBC 0.000 (0.0-0.012) X10*3/uL Nucleated RBC % (auto) 0.0 (0.0-0.2) /100WBC Sodium 137 (135-145) mmol/L Potassium 4.5 (3.3-5.1) mmol/L Chloride 103 (96-108) mmol/L Carbon Dioxide 20 L (22-29) mmol/L Anion Gap 19 (12-20) BUN 11 (9-16) mg/dL Creatinine 0.96 (0.5-1.4) mg/dL Estim Creat Clear Calc 105.4 Estimated GFR > 60 Random Glucose 186 H (60-115) mg/dL Lactic Acid 1.8 (0.5-2.0) mmol/L Calcium 9.2 (8.4-10.2) mg/dL COVID-19 ([facility]) (Negative) COVID-19 Clin Com 07/02/22 Range/Units 18:01 WBC (4.8-10.8) X10*3/uL RBC (4.60-5.80) X10*6/uL Hgb (14.0-18.0) g/dl Hct (42.0-52.0) % MCV (80.0-98.0) fL MCH (27.0-33.0) pg MCHC (31.0-36.0) g/dl RDW (11.0-16.0) % Plt Count (160-400) X10*3/uL MPV (9.4-12.4) fL Immature Gran % (Auto) (0.0-0.4) % Neut % (Auto) (45-73) % Lymph % (Auto) (20-40) % [place] % (Auto) (2-11) % Eos % (Auto) (0-4) % Baso % (Auto) (0-2) % Lymph # (Auto) (1.2-4.9) X10*3/uL [place] # (Auto) (0.1-1.2) X10*3/uL Eos # (Auto) (0.0-0.4) X10*3/uL Baso # (Auto) (0.0-0.2) X10*3/uL Abs Immat Gran (auto) (0.00-0.03) X10*3/uL Absolute Neuts (auto) (2.0-8.3) x10*3/uL Absolute Nucleated RBC (0.0-0.012) X10*3/uL Nucleated RBC % (auto) (0.0-0.2) /100WBC Sodium (135-145) mmol/L Potassium (3.3-5.1) mmol/L Chloride (96-108) mmol/L Carbon Dioxide (22-29) mmol/L Anion Gap (12-20) BUN (9-16) mg/dL Creatinine (0.5-1.4) mg/dL Estim Creat Clear Calc Estimated GFR Random Glucose (60-115) mg/dL Lactic Acid (0.5-2.0) mmol/L Calcium (8.4-10.2) mg/dL COVID-19 ([facility]) Negative (Negative) COVID-19 Clin Com See Note Discharge Plan Discharge Clinical Impression: Positive blood culture, Staphylococcus aureus bacteremia Patient Disposition: Elopement Prescriptions: No Action ascorbic acid (vitamin C) 1,000 mg Tablet 500 mg PO DAILY cholecalciferol (vitamin D3) 50 mcg (2,000 unit) Capsule 50 mcg PO DAILY doxycycline hyclate 100 mg tablet 100 mg PO BID Qty: 20 0RF glipizide 5 mg tablet 1 tab PO BID Trulicity 0.75 mg/0.5 mL pen injector 0.5 ml subcut MO Discharge Date/Time: 07/02/22 20:40
[2022-07-02 18:21] LABS: Lactic Acid 1.8 mmol/L (0.5-2.0)
--- OUTSIDE RECORDS SUMMARY | 2022-07-02 18:23 | XMS_ITS | Continuity of Care Document ---
:1975 Author Organization [facility] Adult Address [address] [place] [address]- Care Team Providers Name Role Phone Baldev SAMUELS, Suzanne Jordan Primary Care Physician [facility] Date(s): 12/06/21 - 01/05/22 [facility] Adult [address] [place] [phone]- Allergies, Adverse Reactions, Alerts Substance Reaction Severity Status amoxicillin1 Facial swelling Persistent Severe Active Difficulty breathing Tylox Active HYDROcodone2 Active 1Tolerates [id number] Immunizations Given and Recorded Vaccine Date Status Refusal Reason SARS-CoV-2 (COVID-19) mRNA BNT-162b2 vac 09/08/21 Recorde d SARS-CoV-2 (COVID-19) mRNA BNT-162b2 vac 01/04/21 Recorde d SARS-CoV-2 (COVID-19) mRNA BNT-162b2 vac 12/13/20 Recorde d tetanus/diphtheria/pertussis, acel(Tdap) 12/22/14 Recorde d influ virus vac, H1N1, inactive(oldterm) 08/18/09 Recorde d pneumococcal 23-valent vaccine 11/09/08 Recorded influenza virus vaccine, inactivated 07/08/08 Recorded Not Given Vaccine Date Status Refusal Reason pneumococcal 23-valent vaccine 04/17/19 Not Given P atient Refuses Medications cholecalciferol 2000 intl units oral capsule 1 capsule = 50 mcg, By Mouth, Daily, 0 Refills, Maintenance, 11/09/21 8:44:00 EST, Capsule, Partial fill upon patient request if the prescription is for a schedule II opioid drug. Start Date: 11/09/21 Status: Orderedgabapentin 100 mg oral capsule 100 mg, 1, capsule, By Mouth, 3 times a day, # 90 capsule, Refills 0, Tot. Refills 0, Maintenance, 12/28/21 13:36:00 EDT, Route to Pharmacy Electronically, [id number], Partial fill upon patientrequest if the prescription is for a schedule II... Start Date: 12/28/21 Status: OrderedglipiZIDE 5 mg oral tablet 10 mg, 2, tablet, By Mouth, Daily, # 180 tablet, Refills 3, Tot. Refills 3, Maintenance, 12/28/21 13:30:00 EDT, Route to Pharmacy Electronically, [id number], Partial fill upon patient request if the prescription is for a schedule II opioid saqib... Start Date: 12/28/21 Status: OrderedhydrOXYzine hydrochloride 25 mg oral tablet 1 tablet = 25 mg, By Mouth, 4 times a day, PRN for anxiety, for 14 days, may cause drowsiness, # 56 tablet, 0 Refills, Acute 01/11/22 13:35:00 EDT, 12/28/21 13:35:00 EDT, Tablet, [id number], Partial fill upon patient request if the prescriptio... Start Date: 12/28/21 Stop Date: 01/11/22 Status: Orderednaproxen 375 mg oral tablet 375 mg, 1, tablet, By Mouth, 2 times a day, # 60 tablet, Refills 0, Maintenance, 11/09/21 8:44:00 EST, Partial fill upon patient request if the prescription is for a schedule II opioid drug. Start Date: 11/09/21 Status: Orderednicotine 14 mg/24 hr transdermal film, extended release 1 patch, Topically, Daily, # 7 patch, 0 Refills, Maintenance, 11/09/21 8:43:00 EST, Patch, Partial fill upon patient request if the prescription is for a schedule II opioid drug. Start Date: 11/09/21 Stop Date: 11/16/21 Status: OrderedTrulicity Pen 1.5 mg/0.5 mL subcutaneous solution 0.5 mL = 1.5 mg, Subcutaneous Injection, Every week, rotate injection sites, # 2 mL, 6 Refills, Maintenance, 12/28/21 13:26:00 EDT, Solution, [id number], Partial fill upon patient request if the prescription is for a schedule II opioid drug.,... Start Date: 12/28/21 Status: Ordered Problem List Condition Effective Dates Status Health Status Informant Diabetic foot ulcer(Confirmed) Active NATASHA (generalized anxiety Active disorder)(Confirmed) Major depression(Confirmed) Active PTSD (post-traumatic stress Active disorder)(Confirmed) DM type 2, uncontrolled, with Active neuropathy(Confirmed) Social History Social History Type Response Smoking Status 5-9 cigarettes (between 1/4 to 1/2 pack)/day in last 30 days entered on: 08/26/21 Sex
--- OUTSIDE RECORDS SUMMARY | 2022-07-02 18:23 | XMS_ITS | Continuity of Care Document ---
:1975 Author Organization [facility] Adult Address [address] [place] [address]- Care Team Providers Name Role Phone Baldev SAMUELS, Suzanne Jordan Primary Care Physician [facility] Date(s): 03/22/22 - 04/21/22 [facility] Adult [address] [place] [phone]- Allergies, Adverse Reactions, Alerts Substance Reaction Severity Status amoxicillin1 Facial swelling Persistent Severe Active Difficulty breathing Tylox Active HYDROcodone2 Active 1Tolerates [id number] Immunizations Given and Recorded Vaccine Date Status [...] 11/09/21 Status: Orderedgabapentin 100 mg oral capsule 1, capsule, By Mouth, 3 times a day, 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 Refills 0, 03/03/22 11:11:00 EDT, Route to Pharmacy Electronically, [facility]/pharmacy #[id number], 180, cm, 12/28/21 12:52:00 EDT, Height Start Date: 03/03/22 Status: OrderedglipiZIDE 5 mg oral tablet 10 mg, 2, tablet, By Mouth, Daily, # 180 tablet, Refills 3, Tot. Refills 3, Maintenance, 12/28/21 13:30:00 EDT, [id number] Partial fill upon patient request if the prescription is for a schedule II opioid saqib... Start Date: 12/28/21 Status: Orderednicotine 14 mg/24 hr transdermal film, extended release 1 patch, Topically, Daily, # 7 patch, 0 Refills, Maintenance, 11/09/21 8:43:00 EST, Patch, Partial fill upon patient request if the prescription is for a schedule II opioid drug. Start Date: 11/09/21 Stop Date: 11/16/21 Status: OrderedOne Touch Ultra 2 Glucose Meter See Instructions, # 1 each, Refills 0, Tot. Refills 0, Maintenance, use as directed for Type 2 Diabetes Mellitus, 04/07/22 11:23:00 EDT, Supply, 175.26, cm, 03/30/22 11:40:00 EDT, Height, 97.5, kg, 03/19/22 1:23:00 EDT, Dry Weight Start Date: 04/07/22 Stop Date: 05/07/22 Status: OrderedOne Touch Ultra Test Strips See Instructions, # 450 each, Refills 3, Tot. Refills 3, Maintenance, use to test glucose up to 5 times daily for diabetes mellitus, 04/07/22 11:18:00 EDT, Supply, 175.26, cm, 03/30/22 11:40:00 EDT, Height, 97.5, kg, 03/19/22 1:23:00 EDT, Dry Weight Start Date: 04/07/22 Status: OrderedOne Touch UltraSoft Lancets See Instructions, # 450 each, Refills 3, Tot. Refills 3, Maintenance, use to test glucose up to 5 times daily for diabetes mellitus, 04/07/22 11:24:00 EDT, Supply, 175.26, cm, 03/30/22 11:40:00 EDT, Height, 97.5, kg, 03/19/22 1:23:00 EDT, Dry Weight Start Date: 04/07/22 Status: Orderedpantoprazole 20 mg oral delayed release tablet 1 tablet = 20 mg, By Mouth, Daily, # 30 tablet, 0 Refills, Maintenance, 03/20/22 15:06:00 EDT, EC Tablet, 175.26, cm, 03/20/22 11:08:00 EDT, Height, 97.5, kg, 03/19/22 1:23:00 EDT, Dry Weight Start Date: 03/20/22 Stop Date: 04/19/22 Status: OrderedTrulicity Pen 0.75 mg/0.5 mL subcutaneous solution See Instructions, INJECT 1 PEN SUBCUTANEOUSLY WEEKLY. ROTATE INJECTION SITES., # 2 Unknown, 2 Refills, [facility] STORE [id number], 175.26, cm, 03/20/22 11:08:00 EDT, Height, 97.5, kg, 03/19/22 1:23:00 EDT, Dry Weight Start Date: 03/28/22 Status: OrderedTums 500 mg oral tablet, chewable 500 mg, 1, tablet, Chew, Every 4 hours, PRN, # 45 tablet, Refills 0, Tot. Refills 0, Maintenance, Dyspepsia, 03/20/22 15:05:00 EDT, Route to Pharmacy Electronically, [facility], Partial fill upon patient request if the prescription is fo... Start Date: 03/20/22 Stop Date: 03/27/22 Status: Ordered Problem List Condition Effective Dates Status Health Status Informant Diabetic foot ulcer(Confirmed) Active NATASHA (generalized anxiety Active disorder)(Confirmed) Major depression(Confirmed) Active Obese class I(Confirmed) Active PTSD (post-traumatic stress Active disorder)(Confirmed) DM type 2, uncontrolled, with Active neuropathy(Confirmed) Social History Social History Type Response Smoking Status 5-9 cigarettes (between 1/4 to 1/2 pack)/day in last 30 days entered on: 08/26/21 Sex
--- OUTSIDE RECORDS SUMMARY | 2022-07-02 18:23 | XMS_ITS | Continuity of Care Document ---
:1975 Author Organization [facility] Adult Address [address] [place] [address]- Care Team Providers Name Role Phone Baldev SAMUELS, Suzanne Jordan Primary Care Physician [facility] Date(s): 03/23/22 - 04/22/22 [facility] Adult [address] [place] [phone]- Allergies, Adverse Reactions, Alerts Substance Reaction Severity Status amoxicillin1 Facial swelling Persistent Severe Active Difficulty breathing Tylox Active HYDROcodone2 Active 1Tolerates [id number] Immunizations Given and Recorded Vaccine Date Status [...] capsule, By Mouth, 3 times a day, DOGGER 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 Refills 0, 03/03/22 11:11:00 EDT, Route to Pharmacy Electronically, [facility]/pharmacy #[id number], 180, cm, 12/28/21 12:52:00 EDT, Height Start Date: 03/03/22 Status: OrderedglipiZIDE 5 mg oral tablet 10 mg, 2, tablet, By Mouth, Daily, # 180 tablet, Refills 3, Tot. Refills 3, Maintenance, 12/28/21 13:30:00 EDT, [id number] fill upon patient request [...] INJECTION SITES., # 2 Unknown, 2 Refills, [facility] STORE [id number], 175.26, cm, 03/20/22 11:08:00 EDT, Height, 97.5, kg, 03/19/22 1:23:00 EDT, Dry Weight Start Date: 03/28/22 Status: OrderedTums 500 mg oral tablet, chewable 500 mg, 1, tablet, Chew, Every 4 hours, PRN, # 45 tablet, Refills 0, Tot. Refills 0, Maintenance, Dyspepsia, 03/20/22 15:05:00 EDT, Route to Pharmacy Electronically, [facility], Partial fill upon patient request if [...]
--- OUTSIDE RECORDS SUMMARY | 2022-07-02 18:23 | XMS_ITS | Continuity of Care Document ---
:1975 Author Organization [facility] Adult Address [address] [place] [address]- Care Team Providers Name Role Phone Suzanne De Paz NP Primary Care Physician En[place] [facility] Date(s): 03/30/22 - 04/06/22 [facility] Adult [address] [place] [phone]- Encounter Diagnosis Cellulitis (Discharge Diagnosis) - 03/30/22 Diabetic foot infection (Discharge Diagnosis) - 03/30/22 Diabetic foot ulcer (Discharge Diagnosis) - 03/30/22 Cyst of skin (Discharge Diagnosis) - 03/30/22 Attending Physician: Elizabeth Watters NP Allergies, Adverse Reactions, Alerts Substance Reaction Severity Status amoxicillin1 Facial swelling Persistent Severe Active Difficulty breathing Tylox Active HYDROcodone2 Active 1Tolerates [id number] Immunizations Given and Recorded Vaccine Date Status [...] capsule, By Mouth, 3 times a day, 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 Refills 0, 03/03/22 11:11:00 EDT, Route to Pharmacy Electronically, [facility]/pharmacy #[id number], 180, cm, 12/28/21 12:52:00 EDT, Height Start Date: 03/03/22 Status: OrderedglipiZIDE 5 mg oral tablet 10 mg, 2, tablet, By Mouth, Daily, # 180 tablet, Refills 3, Tot. Refills 3, Maintenance, 12/28/21 13:30:00 EDT, Route to Pharmacy Electronically, [facility]/pharmacy #[id number], Partial fill upon patient request if [...] Start Date: 11/09/21 Stop Date: 11/16/21 Status: Orderedpantoprazole 20 mg oral delayed release [...] INJECTION SITES., # 2 Unknown, 2 Refills, [facility] STORE [id number], 175.26, cm, 03/20/22 11:08:00 EDT, Height, 97.5, kg, 03/19/22 1:23:00 EDT, Dry Weight Start Date: 03/28/22 Status: OrderedTums 500 mg oral tablet, chewable 500 mg, 1, tablet, Chew, Every 4 hours, PRN, # 45 tablet, Refills 0, Tot. Refills 0, Maintenance, Dyspepsia, 03/20/22 15:05:00 EDT, Route to Pharmacy Electronically, [facility], Partial fill upon patient request if the prescription is fo... Start Date: 03/20/22 Stop Date: 03/27/22 Status: Ordered Problem List Condition Effective Dates Status Health Status Informant Diabetic foot ulcer(Confirmed) Active NATASHA (generalized anxiety Active disorder)(Confirmed) Major depression(Confirmed) Active Obese class I(Confirmed) Active PTSD (post-traumatic stress Active disorder)(Confirmed) DM type 2, uncontrolled, with Active neuropathy(Confirmed) Diagnosis Diagnosis Type Effective Dates Health Clinical Infor mant Status Service Cellulitis Discharge 03/30/22 Diagnosis Diabetic foot Discharge 03/30/22 infection Diagnosis Diabetic foot Discharge 03/30/22 ulcer Diagnosis Cyst of skin Discharge 03/30/22 Diagnosis Vital Signs Most recent to oldest [Reference Range]: 1 2 Height 175.26 cm 175.26 cm (03/30/22 11:40 AM) (03/30/22 11:09 AM) Weight 95.5 kg (03/30/22 11:09 AM) Oxygen Saturation [94-100 %] 98 % (03/30/22 11:09 AM) Pulse Rate [55-90 bpm] 81 bpm (03/30/22 11:09 AM) Body Mass Index [18.5-24.99] 31.09 *>HHI* (03/30/22 11:09 AM) Blood Pressure [90-138/55-84 mm Hg] 102/68 mm Hg 101/ 68 mm Hg (03/30/22 11:40 AM) (03/30/22 11:09 AM) Temperature [96.8-100.4 DegF] 98 DegF (03/30/22 11:09 AM) Mode of Delivery (Oxygen) Room air (03/30/22 11:09 AM) Blood pressure sites Arm, left Arm, right (03/30/22 11:40 AM) (03/30/22 11:09 AM) Temperature Route Temporal (03/30/22 11:09 AM) Weight Obtained Via Standing scale (03/30/22 11:09 AM) Social History Social History Type Response Smoking Status 5-9 cigarettes (between 1/4 to 1/2 pack)/day in last 30 days entered on: 08/26/21 Sex
--- OUTSIDE RECORDS SUMMARY | 2022-07-02 18:23 | XMS_ITS | Continuity of Care Document ---
:1975 Author Organization [facility] Address [address] [place] [phone]- Care Team Providers Name Role Phone Karan Cagle MD Primary Care Physician Encounter [facility] Date(s): 10/15/19 - 03/14/[address] [phone]- [facility] Discharge Disposition: A-D/C Home Attending Physician: Cristofer Valdes MD Admitting Physician: Cristofer Valdes MD Referring Physician: Cristofer Valdes MD Allergies, Adverse Reactions, Alerts Substance Reaction Severity Status amoxicillin1 Facial swelling Persistent Severe Active Difficulty breathing Tylox Active 1Tolerates cefepime Immunizations Not Given Vaccine Date Status Refusal Reason pneumococcal 23-valent vaccine 04/17/19 Not Given P atient Refuses Medications offloading darco shoe offloading darco shoe, See Instructions, # 1 each, Refills 0, Tot. Refills 0, Maintenance, with hexagonal pushouts, 06/26/19 11:52:38 EDT, Compound Start Date: 06/26/19 Status: OrderedOrthotics See Instructions, # 1 pair, Refills 3, Tot. Refills 3, Maintenance, diabetic shoes with custom inserts; Please evaluate and adjust as necessary, 06/26/19 11:51:53 EDT, Compound Start Date: 06/26/19 Status: Orderedvancomycin 1.25 g/250 mL-NaCl 0.9% intravenous solution = 1,250 mg, IV Infusion, 2 times a day, # 80 Doses, 0 Refills, Maintenance, 04/18/19 9:19:07 EDT Start Date: 04/18/19 Stop Date: 05/30/19 Status: OrderedWheelchair See Instructions, # 1 application, Maintenance, to be used for ambulation Unsteady gait ICD-10-CM R26.81, 04/18/19 9:21:06 EDT, Compound Start Date: 04/18/19 Status: Ordered Social History Social History Type Response Smoking Status 5-9 cigarettes (between 1/4 to 1/2 pack)/day in last 30 days entered on: 06/27/19 Sex
--- OUTSIDE RECORDS SUMMARY | 2022-07-02 18:23 | XMS_ITS | Continuity of Care Document ---
:1975 Author Organization [facility] Adult Address [address] [place] [address]- Care Team Providers Name Role Phone Baldev SAMUELS, Suzanne Jordan Primary Care Physician Encounter [facility] Date(s): 12/28/21 - 01/27/22 [facility] Adult [address] [place] [phone]- Attending Physician: Ava Boyce Admitting Physician: Admtr ArHermelinda Referring Physician: Admtr, Ar8 Allergies, Adverse Reactions, Alerts Substance Reaction Severity Status amoxicillin1 Facial swelling Persistent Severe Active Difficulty breathing Tylox Active HYDROcodone2 Active 1Tolerates [id number] Immunizations Given and Recorded Vaccine Date Status [...] a day, # 90 capsule, Refills 0, Route to Pharmacy Electronically, [facility] [id number], 180, cm, 12/28/21 12:52:00 EDT, Height Start Date: 01/25/22 Status: OrderedglipiZIDE 5 mg oral tablet 10 mg, 2, tablet, By Mouth, Daily, # 180 tablet, Refills 3, Tot. Refills 3, Maintenance, 12/28/21 13:30:00 EDT, Route to Pharmacy Electronically, [facility]/pharmacy #[id number], Partial fill upon patient request if the prescription is for a schedule II opioid saqib... Start Date: 12/28/21 Status: Orderednaproxen 375 mg oral tablet 375 [...] 11/09/21 Stop Date: 11/16/21 Status: OrderedTrulicity Pen 0.75 mg/0.5 mL subcutaneous solution See Instructions, INJECT 1 PEN SUBCUTANEOUSLY WEEKLY. ROTATE INJECTION SITES., # 2 Unknown, 1 Refills, [id number], 180, cm, 12/28/21 12:52:00 EDT, Height Start Date: 01/24/22 Status: Ordered Problem List Condition Effective Dates [...]
--- OUTSIDE RECORDS SUMMARY | 2022-07-02 18:23 | XMS_ITS | Continuity of Care Document ---
:1975 Author Organization [facility] Address [address] [place] [address]- Care Team Providers Name Role Phone Baldev SAMUELS, Suzanne Jordan Primary Care Physician Encounter [facility] Date(s): 11/03/21 - 12/10/21 [facility] [address] [place] [phone]- Attending Physician: Not on Staff, Attending MD Referring Physician: Suzanne De Paz NP Allergies, Adverse Reactions, Alerts Substance Reaction Severity Status amoxicillin1 Facial swelling Persistent Severe Active Difficulty breathing Tylox Active HYDROcodone2 Active 1Tolerates [id number] Immunizations Given and Recorded Vaccine Date Status Refusal Reason SARS-CoV-2 (COVID-19) mRNA BNT-162b2 vac 01/04/21 Recorde [...] II opioid drug. Start Date: 11/09/21 Status: OrderedDAPTOmycin 500 mg intravenous injection = 4 mg/kg, IV Infusion, Every 24 hours, 2:30PM, 0 Refills, Maintenance, 11/09/21 8:44:00 EST, Partial fill upon patient request if the prescription is for a schedule II opioid drug. Start Date: 11/09/21 Status: Ordereddoxycycline monohydrate 100 mg oral tablet TAKE 1 TABLET BY MOUTH TWICE A DAY Start Date: 11/09/21 Status: OrderedglipiZIDE 5 mg oral tablet 10 mg, 2, tablet, By Mouth, Daily, # 90 tablet, Refills 0, Maintenance, 08/26/21 12:16:00 EST, Partial fill upon patient request if the prescription is for a schedule II opioid drug. Start Date: 08/26/21 Status: Orderednaproxen 375 mg oral tablet 375 [...] OrderedTrulicity Pen 0.75 mg/0.5 mL subcutaneous solution 0.5 mL = 0.75 mg, Subcutaneous Injection, Every week, rotate injection sites., # 2 mL, 0 Refills, Maintenance, 12/06/21 12:20:00 EST, Solution, [facility]/pharmacy #[id number], Partial fill upon patient request if the prescription is for a schedule II opioid drug.... Start Date: 12/06/21 Status: Ordered Problem List Condition Effective Dates Status Health Status Informant Diabetic foot ulcer(Confirmed) Active PTSD (post-traumatic stress Active disorder)(Confirmed) DM type 2, uncontrolled, with Active neuropathy(Confirmed) Social History Social History Type Response Smoking Status 5-9 cigarettes (between 1/4 to 1/2 pack)/day in last 30 days entered on: 08/26/21 Sex
--- OUTSIDE RECORDS SUMMARY | 2022-07-02 18:23 | XMS_ITS | Continuity of Care Document ---
:1975 Author Organization [facility] Adult Address [address] [place] [address]- Care Team Providers Name Role Phone Baldev SAMUELS, Suzanne Jordan Primary Care Physician [facility] Date(s): 05/05/22 - 06/04/22 [facility] [address] [place] [phone]- Allergies, Adverse Reactions, Alerts Substance Reaction Severity Status amoxicillin1 Facial swelling Persistent Severe Active Difficulty breathing Tylox Active HYDROcodone2 Active 1Tolerates [id number] Immunizations Given and Recorded Vaccine Date Status [...] capsule, By Mouth, 3 times a day, 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 Refills 0, 03/03/22 11:11:00 EDT, Route to Pharmacy Electronically, [facility]/pharmacy #[id number], 180, cm, 12/28/21 12:52:00 EDT, Height Start Date: 03/03/22 Status: OrderedglipiZIDE 5 mg oral tablet 10 mg, 2, tablet, By Mouth, Daily, # 180 tablet, Refills 3, Tot. Refills 3, Maintenance, 12/28/21 13:30:00 EDT, [id number] Partial fill upon [...] PEN SUBCUTANEOUSLY WEEKLY. ROTATE INJECTION SITES., # 4 Unknown, 2 Refills, 04/25/22 9:11:00 EDT, [place] [address], 175.26, cm, 03/30/22 11:40:00 EDT, Height, 97.5, kg, 03/19/22 1:23:00 EDT, Dry Weight Start Date: 04/25/22 Status: OrderedTums 500 mg oral tablet, chewable 500 mg, 1, tablet, Chew, Every 4 hours, PRN, # 45 tablet, Refills 0, Tot. Refills 0, Maintenance, Dyspepsia, 03/20/22 15:05:00 EDT, Route to Pharmacy Electronically, [facility], Partial fill upon patient [...] last 30 days entered on: 08/26/21 Sex Care Team PersonnelName: Suzanne De Paz NP Address: [address] [facility] [address]rd [place] [address]-
--- OUTSIDE RECORDS SUMMARY | 2022-07-02 18:24 | XMS_ITS | Continuity of Care Document ---
:1975 Author Organization [facility] Adult Address [address] [place] [address]- Care Team Providers Name Role Phone Baldev SAMUELS, Suzanne Jordan Primary Care Physician [facility] Date(s): 12/12/21 - 01/11/22 [facility] [address] [place] [phone]- Allergies, Adverse Reactions, Alerts Substance Reaction Severity Status amoxicillin1 Facial swelling Persistent Severe Active Difficulty breathing Tylox Active HYDROcodone2 Active 1Tolerates [id number] Immunizations Given and Recorded Vaccine Date Status [...] 12/28/21 13:30:00 EDT, Route to Pharmacy Electronically, [facility]/pharmacy #[id number], Partial fill upon patient request if [...] 6 Refills, Maintenance, 12/28/21 13:26:00 EDT, Solution, [facility]/pharmacy #[id number], Partial fill upon patient request if [...]
--- OUTSIDE RECORDS SUMMARY | 2022-07-02 18:24 | XMS_ITS | Continuity of Care Document ---
:1975 Author Organization [facility] Adult Address [address] [place] [address]- Care Team Providers Name Role Phone Baldev SAMUELS, Suzanne Jordan Primary Care Physician Encounter [facility] Date(s): 11/22/21 - 12/22/21 [facility] [address] [place] [phone]- Allergies, Adverse Reactions, Alerts Substance Reaction Severity Status amoxicillin1 Facial swelling Persistent Severe Active Difficulty breathing Tylox Active HYDROcodone2 Active 1Tolerates [id number] Immunizations Given and Recorded Vaccine Date Status [...] 0 Refills, Maintenance, 12/06/21 12:20:00 EST, Solution, [facility]/pharmacy #[id number], Partial fill upon patient request if [...]
--- OUTSIDE RECORDS SUMMARY | 2022-07-02 18:24 | XMS_ITS | Continuity of Care Document ---
:1975 Author Organization [facility] Address [address] [place] [address]- Care Team Providers Name Role Phone Baldev SAMUELS, Suzanne Jordan Primary Care Physician Encounter [facility] Date(s): 12/08/21 - 01/07/22 [facility] [address] [place] [id number] Attending Physician: Ava Boyce Admitting Physician: AdmAva jiménez Referring Physician: AdmtrAva Allergies, Adverse Reactions, Alerts Substance Reaction Severity Status amoxicillin1 Facial swelling Persistent Severe Active Difficulty breathing Tylox Active HYDROcodone2 Active 1Tolerates uuvvzfan4Pgpc Immunizations Given and Recorded Vaccine Date Status [...] 12/28/21 13:36:00 EDT, Route to Pharmacy Electronically, [facility]/pharmacy #[id number], Partial fill upon patientrequest if the prescription is for a schedule II... Start Date: 12/28/21 Status: OrderedglipiZIDE 5 mg oral tablet 10 mg, 2, tablet, By Mouth, Daily, # 180 tablet, Refills 3, Tot. Refills 3, Maintenance, 12/28/21 13:30:00 EDT, Route to Pharmacy Electronically, [facility]/pharmacy #[id number], Partial fill upon patient request if the prescription is for a schedule II opioid saqib... Start Date: 12/28/21 Status: OrderedhydrOXYzine hydrochloride 25 mg oral tablet 1 tablet = 25 mg, By Mouth, 4 times a day, PRN for anxiety, for 14 days, may cause drowsiness, # 56 tablet, 0 Refills, Acute 01/11/22 13:35:00 EDT, 12/28/21 13:35:00 EDT, Tablet, [facility]/pharmacy #[id number], Partial fill upon patient request if [...] 2 mL, 6 Refills, Maintenance, 12/28/21 13:26:00 ED[facility]inn [id number], Partial fill upon patient request if the [...]
--- OUTSIDE RECORDS SUMMARY | 2022-07-02 18:24 | XMS_ITS | Continuity of Care Document ---
:1975 Author Organization [facility] Adult Address [address] [place] [address]- Care Team Providers Name Role Phone Baldev SAMUELS, Suzanne Jordan Primary Care Physician [facility]counter [facility] Date(s): 12/30/21 - 01/29/22 [facility] Adult [address] [place] [address]- Allergies, Adverse Reactions, Alerts Substance Reaction Severity Status amoxicillin1 Facial swelling Persistent Severe Active Difficulty breathing Tylox Active HYDROcodone2 Active 1Tolerates nzqtmmev1Nzhn Immunizations Given and Recorded Vaccine Date Status [...] capsule, Refills 0, Route to Pharmacy Electronically, [facility] [id number], 180, cm, 12/28/21 12:52:00 EDT, Height Start Date: 01/25/22 Status: OrderedglipiZIDE 5 mg oral tablet 10 mg, 2, tablet, By Mouth, Daily, # 180 tablet, Refills 3, Tot. Refills 3, Maintenance, 12/28/21 13:30:00 EDT, Route to Pharmacy Electronically, [facility]/pharmacy #[id number], Partial fill upon patient request [...] INJECTION SITES., # 2 Unknown, 1 Refills, [facility] [id number], 180, cm, 12/28/21 12:52:00 EDT, Height Start [...]
--- OUTSIDE RECORDS SUMMARY | 2022-07-02 18:24 | XMS_ITS | Continuity of Care Document ---
:1975 [address] [facility] Adult Address [address] [place] [address]- Care Team Providers Name Role Phone Baldev SAMUELS, Suzanne Jordan Primary Care Physician Encounter [facility] Date(s): 08/26/21 - 09/02/[address] [facility] Adult [address] [place] [address]- Attending Physician: Not on Staff, Attending MD Referring Physician: Suzanne De Paz NP Allergies, Adverse Reactions, Alerts Substance Reaction Severity Status amoxicillin1 Facial swelling Persistent Severe Active Difficulty breathing Tylox Active HYDROcodone2 Active 1Tolerates fciosbtb7Mawa Immunizations Given and Recorded Vaccine Date Status [...] 04/17/19 Not Given P atient Refuses Medications glipiZIDE 5 mg oral tablet 10 mg, 2, tablet, By Mouth, Daily, # 90 tablet, Refills 0, Maintenance, 08/26/21 12:16:00 EST, Partial fill upon patient request if the prescription is for a schedule II opioid drug. Start Date: 08/26/21 Status: Orderedsulfamethoxazole-trimethoprim 800 mg-160 mg oral tablet 1 tablet, By Mouth, 2 times a day, 0 Refills, Maintenance, 08/26/21 12:16:00 EST, Tablet, Partial fill upon patient request if the prescription is for a schedule II opioid drug. Start Date: 08/26/21 Status: Ordered Problem List Condition Effective Dates Status Health Status Informant Diabetic foot ulcer(Confirmed) Active DM type 2, uncontrolled, with Active neuropathy(Confirmed) Vital Signs Most recent to oldest [Reference Range]: 1 Height 180 cm (08/26/21 9:54 AM) Social History Social History Type Response Smoking Status 5-9 cigarettes (between 1/4 to 1/2 pack)/day in last 30 days entered on: 08/26/21 Sex
--- OUTSIDE RECORDS SUMMARY | 2022-07-02 18:24 | XMS_ITS | Continuity of Care Document ---
:1975 Author Organization [facility] Adult Address [address] [place] [address]- Care Team Providers Name Role Phone Baldev SAMUELS, Suzanne Jordan Primary Care Physician Encounter [facility] Date(s): 03/21/22 - 04/20/22 [facility] Adult [address] [place] [address]- Allergies, Adverse Reactions, Alerts Substance Reaction Severity Status amoxicillin1 Facial swelling Persistent Severe Active Difficulty breathing Tylox Active HYDROcodone2 Active 1Tolerates [id number] Immunizations Given and Recorded Vaccine Date Status [...] capsule, By Mouth, 3 times a day, 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 Refills 0, 03/03/22 11:11:00 EDT, Route to Pharmacy Electronically, [facility]/pharmacy #[id number], 180, cm, 12/28/21 12:52:00 EDT, Height Start Date: 03/03/22 Status: OrderedglipiZIDE 5 mg oral tablet 10 mg, 2, tablet, By Mouth, Daily, # 180 tablet, Refills 3, Tot. Refills 3, Maintenance, 12/28/21 13:30:00 EDT, [id number] fill upon patient [...] # 2 Unknown, 2 Refills, [facility] [id number], 175.26, cm, 03/20/22 11:08:00 EDT, Height, 97.5, kg, 03/19/22 1:23:00 EDT, Dry Weight Start Date: 03/28/22 Status: OrderedTums 500 mg oral tablet, chewable 500 mg, 1, tablet, Chew, Every 4 hours, PRN, # 45 tablet, Refills 0, Tot. Refills 0, Maintenance, Dyspepsia, 03/20/22 15:05:00 EDT, Route to Pharmacy Electronically, [facility], Partial fill upon patient [...]
--- OUTSIDE RECORDS SUMMARY | 2022-07-02 18:24 | XMS_ITS | Continuity of Care Document ---
:1975 Author Organization [address] [place] [address]- Care Team Providers Name Role Phone Baldev SAMUELS, Suzanne Jordan Primary Care Physician [place] [facility] Date(s): 04/04/22 - 06/04/[address] [place] [address]- Attending Physician: Hermelindo Christianson MD Referring Physician: Suzanne De Paz NP Allergies, Adverse Reactions, Alerts Substance Reaction Severity Status amoxicillin1 Facial swelling Persistent Severe Active Difficulty breathing Tylox Active HYDROcodone2 Active 1Tolerates dgegjmeb9Ohof Immunizations Given and Recorded Vaccine Date Status [...] capsule, By Mouth, 3 times a day, 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 Refills 0, 03/03/22 11:11:00 EDT, [id number], cm, 12/28/21 12:52:00 EDT, Height Start Date: 03/03/22 Status: OrderedglipiZIDE 5 mg oral tablet 10 mg, 2, tablet, By Mouth, Daily, # 180 tablet, Refills 3, Tot. Refills 3, Maintenance, 12/28/21 13:30:00 EDT, [id number] Partial fill upon patient request if [...] 4 Unknown, 2 Refills, 04/25/22 9:11:00 EDT, [id number], 175.26, cm, 03/30/22 11:40:00 EDT, Height, 97.5, kg, 03/19/22 1:23:00 EDT, Dry Weight Start Date: 04/25/22 Status: OrderedTums 500 mg oral tablet, chewable 500 mg, 1, tablet, Chew, Every 4 hours, PRN, # 45 tablet, Refills 0, Tot. Refills 0, Maintenance, Dyspepsia, 03/20/22 15:05:00 EDT, Route to Pharmacy Electronically, [facility], Partial fill upon patient request if [...] PersonnelName: Suzanne De Paz NP Address: [address] [place], [place] [address]
--- OUTSIDE RECORDS SUMMARY | 2022-07-02 18:24 | XMS_ITS | Continuity of Care Document ---
:1975 Author Organization [facility] Adult Address [address] [place] [address]- Care Team Providers Name Role Phone Baldev SAMUELS, Suzanne Jordan Primary Care Physician Encounter [facility] Date(s): 01/11/22 - 02/10/22 [facility] Adult [address] [place] [address]- Allergies, Adverse Reactions, Alerts Substance Reaction Severity Status amoxicillin1 Facial swelling Persistent Severe Active Difficulty breathing Tylox Active HYDROcodone2 Active 1Tolerates [id number] Immunizations Given and Recorded Vaccine Date Status [...] capsule, Refills 0, Route to Pharmacy Electronically, [facility] [id number], 180, cm, 12/28/21 12:52:00 EDT, Height Start Date: 01/25/22 Status: OrderedglipiZIDE 5 mg oral tablet 10 mg, 2, tablet, By Mouth, Daily, # 180 tablet, Refills 3, Tot. Refills 3, Maintenance, 12/28/21 13:30:00 EDT, Route to Pharmacy Electronically, [facility]/pharmacy #[id number], Partial fill upon patient request [...] INJECTION SITES., # 2 Unknown, 1 Refills, [facility] [id number], 180, cm, 12/28/21 12:52:00 EDT, Height Start [...]
--- OUTSIDE RECORDS SUMMARY | 2022-07-02 18:24 | XMS_ITS | Continuity of Care Document ---
:1975 Author Organization [facility] Address [address] [place] [address]- Care Team Providers Name Role Phone Karan Cagle MD Primary Care Physician Encounter [facility] Date(s): 10/02/19 - 11/07/19 [facility] [address] [place] [address] [facility] Attending Physician: Larry Hughes MD Admitting Physician: Larry Hughes MD Referring Physician: Karan Cagle MD Allergies, Adverse Reactions, Alerts Substance Reaction [...]
--- OUTSIDE RECORDS SUMMARY | 2022-07-02 18:24 | XMS_ITS | Continuity of Care Document ---
:1975 Author Organization [facility] Address [address] [place] [address]- Care Team Providers Name Role Phone Karan Cagle MD Primary Care Physician Encounter [facility] Date(s): 10/15/19 - 10/25/[address] [address]- [facility] Attending Physician: Ava Boyce Admitting Physician: AdmAva [...]
--- OUTSIDE RECORDS SUMMARY | 2022-07-02 18:24 | XMS_ITS | Continuity of Care Document ---
:1975 Author Organization [facility] Adult Address [address] [place] [address]- Care Team Providers Name Role Phone Suzanne De Paz NP Primary Care Physician Encounter [facility] Date(s): 11/09/21 - 11/16/21 [facility] Adult [address] [place] [address]- Encounter Diagnosis Diabetic foot ulcer (Discharge Diagnosis) - 11/09/21 Attending Physician: Joanne Baker MD Referring Physician: Suzanne De Paz NP Allergies, Adverse Reactions, Alerts Substance Reaction Severity Status amoxicillin1 Facial swelling Persistent Severe Active Difficulty breathing Tylox Active HYDROcodone2 Active 1Tolerates ivstcakv8Wewd Immunizations Given and Recorded Vaccine Date Status [...] sites., # 2 mL, 0 Refills, Maintenance, 11/09/21 9:06:00 EST, Solution, [facility]/pharmacy #[id number], Partial fill upon patient request if the prescription is for a schedule II opioid drug.,... Start Date: 11/09/21 Status: Ordered Problem List Condition Effective Dates Status Health Status Informant Diabetic foot ulcer(Confirmed) Active PTSD (post-traumatic stress Active disorder)(Confirmed) DM type 2, uncontrolled, with Active neuropathy(Confirmed) Diagnosis Diagnosis Type Effective Dates Health Status Clinical In formant Service Diabetic foot Discharge 11/09/21 ulcer Diagnosis Vital Signs Most recent to oldest [Reference Range]: 1 Height 180 cm (11/09/21 8:26 AM) Weight 95.9 kg (11/09/21 8:26 AM) Body Mass Index [18.5-24.99] 29.6 *H* (11/09/21 8:26 AM) Weight Obtained Via Patient/family stated (11/09/21 8:26 AM) Social History Social History Type Response Smoking Status 5-9 cigarettes (between 1/4 to 1/2 pack)/day in last 30 days entered on: 08/26/21 Sex
--- OUTSIDE RECORDS SUMMARY | 2022-07-02 18:24 | XMS_ITS | Continuity of Care Document ---
:1975 Author Organization [facility] Address [address] [place] [address]- Care Team Providers Name Role Phone Karan Cagle MD Primary Care Physician [place] [id number] Date(s): 10/08/19 - 10/18/19 [facility] [address] [place] [address]- [facility] Attending Physician: Ava Boyce Admitting Physician: AdmAva [...]
--- OUTSIDE RECORDS SUMMARY | 2022-07-02 18:24 | XMS_ITS | Continuity of Care Document ---
:1975 Author Organization [facility] Address [address] [place] [address], [address] [place] [address]- Care Team Providers Name Role Phone Karan Cagle MD Primary Care Physician Encounter [facility] Date(s): 11/25/19 - 12/05/[address], [address] [place] [address]- [facility] Attending Physician: Ava Boyce Admitting Physician: AdmtrAva Referring Physician: Admtr Ar8 Allergies, Adverse Reactions, Alerts Substance Reaction [...]
--- OUTSIDE RECORDS SUMMARY | 2022-07-02 18:24 | XMS_ITS | Continuity of Care Document ---
:1975 Author Organization [facility] Address [address] [place] [address]- Care Team Providers Name Role Phone Karan Cagle MD Primary Care Physician Encounter [facility] Date(s): 10/09/19 - 10/09/[address] [address]- [facility] Encounter Diagnosis Disc disorder of cervical region (Final) - 10/09/19 Discharge Disposition: A-D/C Home Attending Physician: Marian Dee MD Admitting Physician: Marina Dee MD Referring Physician: Not on Staff, Referring MD Allergies, Adverse Reactions, Alerts Substance Reaction Severity Status amoxicillin1 Facial swelling Persistent Severe Active Difficulty breathing Tylox Active 1Tolerates cefepime Immunizations Not Given Vaccine Date Status Refusal Reason pneumococcal 23-valent vaccine 04/17/19 Not Given P atient Refuses Medications morphine 30 mg oral tablet, immediate release 1 tablet = 30 mg, By Mouth, Every 6 hours, PRN for pain, for 3 days, # 15 tablet, 0 Refills, Acute 10/12/19 15:21:00 EST, 10/09/19 15:21:00 EST, Tablet, Partial fill upon patient request Start Date: 10/09/19 Stop Date: 10/12/19 Status: Orderedoffloading darco shoe offloading darco shoe, See Instructions, [...] EDT, Compound Start Date: 04/18/19 Status: Ordered Vital Signs Most recent to oldest [Reference 1 2 3 Range]: Oxygen Saturation [94-100 %] 100 % 100 % (10/09/19 9:01 AM) (10/09/19 8:53 AM) Pulse Rate [55-90 bpm] 98 bpm 98 bpm *H* *H* (10/09/19 9:01 AM) (10/09/19 8:53 AM) Blood Pressure [90-138/55-84 mm 127/86 mm Hg Hg] (10/09/19 9:01 AM) Respiratory Rate [16-30 br/min] 18 br/min 18 br/min 18 br/min (10/09/19 1:11 PM) (10/09/19 10:45 AM) (10/09/19 9:01 AM) Temperature [96.8-100.4 DegF] 98.4 DegF (10/09/19 9:01 AM) Mode of Delivery (Oxygen) Room air (10/09/19 9:01 AM) Blood pressure sites Arm, right (10/09/19 9:01 AM) Temperature Route Oral (10/09/19 9:01 AM) Social History Social History Type Response Smoking Status 5-9 cigarettes (between 1/4 to 1/2 pack)/day in last 30 days entered on: 06/27/19 Sex
--- OUTSIDE RECORDS SUMMARY | 2022-07-02 18:24 | XMS_ITS | Continuity of Care Document ---
:1975 Author Organization [facility] Address [address] [place] [address]- Care Team Providers Name Role Phone Karan Cagle MD Primary Care Physician En[place] [facility] [place] Date(s): 10/10/19 - 11/14/[address] [address]- [facility] Attending Physician: Cristofer Valdes MD Admitting Physician: [...]
--- OUTSIDE RECORDS SUMMARY | 2022-07-02 18:24 | XMS_ITS | Continuity of Care Document ---
:1975 Author Organization [facility] Adult Address [address] [place] [address]- Care Team Providers Name Role Phone Baldev SAMUELS, Suzanne Jordan Primary Care Physician Encounter [facility] Date(s): 03/21/22 - 04/20/22 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 Refills 0, 03/03/22 11:11:00 EDT, Route to Pharmacy Electronically, [facility]/pharmacy #[id number], 180, cm, 12/28/21 12:52:00 EDT, Height Start Date: 03/03/22 Status: OrderedglipiZIDE 5 mg oral tablet 10 mg, 2, tablet, By Mouth, Daily, # 180 tablet, Refills 3, Tot. Refills 3, Maintenance, 12/28/21 13:30:00 EDT, [id number] fill upon patient request [...] INJECTION SITES., # 2 Unknown, 2 Refills, [facility] 50079, 175.26, cm, 03/20/22 11:08:00 EDT, Height, 97.5, kg, 03/19/22 1:23:00 EDT, Dry Weight Start Date: 03/28/22 Status: OrderedTums 500 mg oral tablet, chewable 500 mg, 1, tablet, Chew, Every 4 hours, PRN, # 45 tablet, Refills 0, Tot. Refills 0, Maintenance, Dyspepsia, 03/20/22 15:05:00 EDT, Route to Pharmacy Electronically, [facility], Partial fill upon patient request if [...]
--- OUTSIDE RECORDS SUMMARY | 2022-07-02 18:24 | XMS_ITS | Continuity of Care Document ---
:1975 Author Organization [facility] Adult Address [address] [place] [address]- Care Team Providers Name Role Phone Baldev SAMUELS, Suzanne Jordan Primary Care Physician Encounter [facility] Date(s): 08/26/21 - 09/25/21 [facility] Adult [address] [place] [address]- Attending Physician: Ava Boyce Admitting Physician: AdmAva jiménez Referring Physician: Admtr, Ar8 Allergies, Adverse Reactions, Alerts Substance Reaction Severity Status amoxicillin1 Facial swelling Persistent Severe Active Difficulty breathing Tylox Active HYDROcodone2 Active 1Tolerates tzfpelgy5Ixqc Immunizations Given and Recorded Vaccine Date Status [...]
--- OUTSIDE RECORDS SUMMARY | 2022-07-02 18:24 | XMS_ITS | Continuity of Care Document ---
:1975 Author Organization [facility] Adult Address [address] [place] [address]- Care Team Providers Name Role Phone Suzanne De Paz NP Primary Care Physician [place] [facility] [place] 12/28/21 - 01/04/22 [facility] Adult [address] [place] [address]- Encounter Diagnosis NATASHA (generalized anxiety disorder) (Discharge Diagnosis) - 12/28/21 DM type 2, uncontrolled, with neuropathy (Discharge Diagnosis) - 12/28/21 PTSD (post-traumatic stress disorder) (Discharge Diagnosis) - 12/28/21 Attending Physician: Not on Staff, Attending MD Referring Physician: Suzanne De Paz NP Allergies, Adverse Reactions, Alerts Substance Reaction Severity Status amoxicillin1 Facial swelling Persistent Severe Active Difficulty breathing Tylox Active HYDROcodone2 Active 1Tolerates utkoqrmn0Jqac Immunizations Given and Recorded Vaccine Date Status [...] 12/28/21 13:36:00 EDT, Route to Pharmacy Electronically, [facility]/pharmacy #[id number], Partial fill upon patientrequest if the prescription is for a schedule II... Start Date: 12/28/21 Status: OrderedglipiZIDE 5 mg oral tablet 10 mg, 2, tablet, By Mouth, Daily, # 180 tablet, Refills 3, Tot. Refills 3, Maintenance, 12/28/21 13:30:00 EDT, Route to Pharmacy Electronically, [facility]/pharmacy #[id number], Partial fill upon patient request [...] Refills, Maintenance, 12/28/21 13:26:00 EDT, [id number], Partial fill upon patient request if the [...] Dates Health Clinical Infor mant Status Service NATASHA (generalized Discharge 12/28/21 anxiety disorder) Diagnosis DM type 2, Discharge 12/28/21 uncontrolled, Diagnosis with neuropathy PTSD Discharge 12/28/21 (post-traumatic Diagnosis stress disorder) Vital Signs Most recent to oldest [Reference Range]: 1 Height 180 cm (12/28/21 12:52 PM) Weight 93.8 kg (12/28/21 12:52 PM) Oxygen Saturation [94-100 %] 99 % (12/28/21 12:52 PM) Pulse Rate [55-90 bpm] 80 bpm (12/28/21 12:52 PM) Body Mass Index [18.5-24.99] 28.95 *H* (12/28/21 12:52 PM) Blood Pressure [90-138/55-84 mm Hg] 114/75 mm Hg (12/28/21 12:52 PM) Temperature [96.8-100.4 DegF] 98.3 DegF (12/28/21 12:52 PM) Mode of Delivery (Oxygen) Room air (12/28/21 12:52 PM) Blood pressure sites Arm, right (12/28/21 12:52 PM) Temperature Route Oral (12/28/21 12:52 PM) Weight Obtained Via Standing scale (12/28/21 12:52 PM) Social History Social History Type Response Smoking Status 5-9 cigarettes (between 1/4 to 1/2 pack)/day in last 30 days entered on: 08/26/21 Sex
--- OUTSIDE RECORDS SUMMARY | 2022-07-02 18:24 | XMS_ITS | Continuity of Care Document ---
:1975 Author Organization [facility] Adult Address [address] [place] [address]- Care Team Providers Name Role Phone Baldev SAMUELS, Suzanne Jordan Primary Care Physician Encounter [facility] Date(s): 11/10/21 - 12/10/21 [facility] Adult [address] [place] [address]- Allergies, Adverse Reactions, Alerts Substance Reaction Severity Status amoxicillin1 Facial swelling Persistent Severe Active Difficulty breathing Tylox Active HYDROcodone2 Active 1Tolerates ggqjvcwu8Mplc Immunizations Given and Recorded Vaccine Date Status [...] 0 Refills, Maintenance, 12/06/21 12:20:00 EST, Solution, [facility]/pharmacy #[id number], Partial fill upon patient request if the [...]
--- OUTSIDE RECORDS SUMMARY | 2022-07-02 18:24 | XMS_ITS | Continuity of Care Document ---
:1975 Author Organization [facility] Address [address] [place] [address]- Care Team Providers Name Role Phone Baldev SAMUELS, Suzanne Jordan Primary Care Physician Encounter [facility] [place] Date(s): 03/18/22 - 03/20/[address] [address]- Encounter Diagnosis Sepsis (Final) - 03/18/22 Cellulitis (Final) - 03/18/22 Diabetic foot infection (Final) - 03/18/22 Discharge Disposition: A-Transfer VNA/Home Health Attending Physician: Antonia Katz DO Admitting Physician: Marco Sommers MD Referring Physician: Not on Staff, Referring MD Allergies, Adverse Reactions, Alerts Substance Reaction Severity Status amoxicillin1 Facial swelling Persistent Severe Active Difficulty breathing Tylox Active HYDROcodone2 Active 1Tolerates [id number] Immunizations Given and Recorded Vaccine Date Status [...] 04/17/19 Not Given P atient Refuses Medications cephalexin monohydrate 500 mg oral tablet 1 tablet = 500 mg, By Mouth, 4 times a day, for 10 days, # 40 tablet, 0 Refills, Acute 03/30/22 15:07:00 EDT, 03/20/22 15:07:00 EDT, Tablet, [facility], Partial fill upon patient request if the prescription is for a schedule II opioid dr... Start Date: 03/20/22 Stop Date: 03/30/22 Status: Orderedcholecalciferol 2000 intl units oral capsule 1 capsule = 50 mcg, By Mouth, Daily, 0 Refills, Maintenance, 11/09/21 8:44:00 EST, Capsule, Partial fill upon patient request if the prescription is for a schedule II opioid drug. 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 Refills 0, 03/03/22 11:11:00 EDT, Route to Pharmacy Electronically, [facility]/pharmacy #[id number], 180, cm, 12/28/21 12:52:00 EDT, Height Start Date: 03/03/22 Status: Orderedgabapentin 100 mg oral capsule 100 mg, Capsule, By Mouth, 03/20/22 9:00:00 EDT Start Date: 03/20/22 Stop Date: 03/20/22 Status: CompletedglipiZIDE 5 mg oral tablet 10 mg, 2, tablet, By Mouth, Daily, # 180 tablet, Refills 3, Tot. Refills 3, Maintenance, 12/28/21 13:30:00 EDT, Route to Pharmacy Electronically, [facility]/pharmacy #[id number], Partial fill upon patient request if [...] # 2 Unknown, 1 Refills, [id number], 180, cm, 12/28/21 12:52:00 EDT, Height Start Date: 01/24/22 Status: OrderedTums 500 mg oral tablet, chewable 500 mg, 1, tablet, Chew, Every 4 hours, PRN, # 45 tablet, Refills 0, Tot. Refills 0, Maintenance, Dyspepsia, 03/20/22 15:05:00 EDT, Route to Pharmacy Electronically, [facility], Partial fill upon patient request if the prescription is fo... Start Date: 03/20/22 Stop Date: 03/27/22 Status: Ordered Problem List Condition Effective Dates Status Health Status Informant Diabetic foot ulcer(Confirmed) Active NATASHA (generalized anxiety Active disorder)(Confirmed) Major depression(Confirmed) Active Obese class I(Confirmed) Active PTSD (post-traumatic stress Active disorder)(Confirmed) DM type 2, uncontrolled, with Active neuropathy(Confirmed) Results Orders for Microbiology Reports Name Date Blood Culture 03/18/22 Blood Culture #2 03/18/22 Microbiology Reports TEST:Blood Culture STATUS:Unauthenticated BODY SITE: SOURCE:Blood COLLECTED DATE/TIME:03/18/22 9:24 AMBlood Culture SPECIMEN DESCRIPTION : BLOOD LEFT AC SPECIAL REQUESTS : NONE CULTURE : NO GROWTH AFTER 48 HOURS REPORT STATUS : PRELIMINARY REPORT TEST:Blood Culture, Second Order STATUS:Unauthenticated BODY SITE: SOURCE:Blood COLLECTED DATE/TIME:03/18/22 9:24 AMBlood Culture, Second Order SPECIMEN DESCRIPTION : BLOOD RIGHT AC SPECIAL REQUESTS : NONE CULTURE : NO GROWTH AFTER 48 HOURS REPORT STATUS : PRELIMINARY REPORT Radiology Reports Exam Date Time Procedure Performing Provider Status 03/18/22 9:58 AM Foot Min 3 Views Left Olesya Stevenson; Auth (Ve rified) Notes:(Foot Min 3 Views Left) Reason For Exam: InfectionRESULT: Foot Min 3 Views Left Left foot, 3 views Reason: Infection; Clinical Question(s): Osteomyelitis COMPARISON: None. FINDINGS: No fractures or bone lesions. No arthritic changes. Normal soft tissues. IMPRESSION: Normal. WSN: [id number] Ordering Physician: Cele Black Dictated By: Siddharth Akhtar MD Dictated Date/Time: 03/18/22 10:22 a Reviewed By: Siddharth Akhtar MD Signed By: Siddharth Akhtar MD Signed Date/Time: 03/18/22 10:22 am Transcribed By: TIM Transcribed Date/Time: 03/18/22 10:21 am Vital Signs Most recent to oldest 1 2 3 [Reference Range]: Height 175.26 cm 175.26 cm 175.26 cm (03/20/22 11:08 AM) (03/19/22 11:13 PM) (03/19/22 4 :13 PM) Weight 97.5 kg 97.5 kg (03/19/22 12:30 AM) (03/18/22 8:26 PM) Oxygen Saturation [94-100 %] 98 % 96 % 96 % (03/20/22 11:08 AM) (03/19/22 11:13 PM) (03/19/22 4 :13 PM) Pulse Rate [55-90 bpm] 79 bpm 80 bpm 90 bpm (03/20/22 11:08 AM) (03/19/22 11:13 PM) (03/19/22 4 :13 PM) Body Mass Index [18.5-24.99] 31.74 *>HHI* (03/18/22 8:26 PM) Blood Pressure [90-138/55-84 118/68 mm Hg 107/62 mm Hg 103 /67 mm Hg mm Hg] (03/20/22 11:08 AM) (03/19/22 11:13 PM) (03/19/22 4 :13 PM) Respiratory Rate [16-30 18 br/min 17 br/min 18 br/mi n br/min] (03/20/22 11:08 AM) (03/20/22 8:29 AM) (03/19/22 11 :13 PM) Temperature [96.8-100.4 98.4 DegF 98.3 DegF 99.3 Deg F DegF] (03/20/22 11:08 AM) (03/19/22 11:13 PM) (03/19/22 4 :13 PM) Mode of Delivery (Oxygen) Room air Room air Room a ir (03/20/22 11:08 AM) (03/19/22 11:13 PM) (03/19/22 4 :13 PM) Blood pressure sites Arm, left Arm, right Arm, left (03/20/22 11:08 AM) (03/19/22 11:13 PM) (03/19/22 4 :13 PM) Temperature Route Axillary Oral Oral (03/20/22 11:08 AM) (03/19/22 11:13 PM) (03/19/22 4 :13 PM) Dry Weight 97.5 kg (03/18/22 8:26 PM) Weight Obtained Via Bed scale (03/18/22 8:26 PM) Dry Weight Obtained Via Bed scale (03/18/22 8:26 PM) Social History Social History Type Response Smoking Status 5-9 cigarettes (between 1/4 to 1/2 pack)/day in last 30 days entered on: 08/26/21 Sex
--- OUTSIDE RECORDS SUMMARY | 2022-07-02 18:24 | XMS_ITS | Continuity of Care Document ---
:1975 Author Organization [facility] Adult Address [address] [place] [address]- Care Team Providers Name Role Phone Baldev SAMUELS, Suzanne Jordan Primary Care Physician Encounter [facility] [place] Date(s): 12/02/21 - 01/13/22 [facility] [address] [place] [address]- Attending Physician: Samuel SMITH, Joanne Referring Physician: Suzanne De Paz NP Allergies, Adverse Reactions, Alerts Substance Reaction Severity Status amoxicillin1 Facial swelling Persistent Severe Active Difficulty breathing Tylox Active HYDROcodone2 Active 1Tolerates [id number] Immunizations Given and Recorded Vaccine Date Status [...] 12/28/21 13:36:00 EDT, Route to Pharmacy Electronically, [facility]/pharmacy #[id number], Partial fill upon patientrequest if the prescription is for a schedule II... Start Date: 12/28/21 Status: OrderedglipiZIDE 5 mg oral tablet 10 mg, 2, tablet, By Mouth, Daily, # 180 tablet, Refills 3, Tot. Refills 3, Maintenance, 12/28/21 13:30:00 EDT, Route to Pharmacy Electronically, [facility]/pharmacy #[id number], Partial fill upon patient [...] Type Response Smoking Status 5-9 cigarettes (between 10/04 to 2 pack)/day in last 30 days entered on: 08/26/21 Sex
--- OUTSIDE RECORDS SUMMARY | 2022-07-02 18:24 | XMS_ITS | Continuity of Care Document ---
:1975 Author Organization [facility] Adult Address [address] [place] [address]- Care Team Providers Name Role Phone Baldev SAMUELS, Suzanne Jordan Primary Care Physician Encounter [facility] Date(s): 11/22/21 - 03/22/22 [facility] [address] [place] [address]- Attending Physician: Suzanne De Paz NP Allergies, Adverse Reactions, Alerts Substance Reaction Severity Status amoxicillin1 Facial swelling Persistent Severe Active Difficulty breathing Tylox Active HYDROcodone2 Active 1Tolerates [id number] Immunizations Given and Recorded Vaccine Date Status [...] 03/30/22 15:07:00 EDT, 03/20/22 15:07:00 EDT, Tablet, [facility], Partial fill upon patient request if the prescription is for a schedule II opioid . Start Date: 03/20/22 Stop Date: 03/30/22 Status: Orderedcholecalciferol 2000 intl units oral capsule 1 capsule = 50 mcg, By Mouth, Daily, 0 Refills, Maintenance, 11/09/21 8:44:00 EST, Capsule, Partial fill upon patient request if the prescription is for a schedule II opioid drug. Start Date: 11/09/21 Status: Orderedgabapentin 100 mg oral capsule 1, capsule, By Mouth, 3 times a day, WASH BOX OPERATOR 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 Refills 0, 03/03/22 11:11:00 EDT, Route to Pharmacy Electronically, [facility]/pharmacy #[id number], 180, cm, 12/28/21 12:52:00 [...] II opioid saqib... Start Date: 12/28/21 Status: Orderedketoprofen 50 mg oral capsule 1 capsule = 50 mg, By Mouth, 4 times a day, PRN Pain , Moderate, with food, # 28 capsule, 0 Refills,Maintenance, 03/22/22 17:14:00 EDT, Capsule, [facility], Partial fill upon patient request if the prescription is for a sched... Start Date: 03/22/22 Stop Date: 03/29/22 Status: Orderednicotine 14 mg/24 hr transdermal film, [...] INJECTION SITES., # 2 Unknown, 1 Refills, [id number], 180, cm, 12/28/21 12:52:00 EDT, Height Start Date: 01/24/22 Status: OrderedTums 500 mg oral tablet, chewable 500 mg, 1, tablet, Chew, Every 4 hours, PRN, # 45 tablet, Refills 0, Tot. Refills 0, Maintenance, Dyspepsia, 03/20/22 15:05:00 EDT, Route to Pharmacy Electronically, [facility], Partial fill upon patient request [...]
--- OUTSIDE RECORDS SUMMARY | 2022-07-02 18:24 | XMS_ITS | Continuity of Care Document ---
:1975 Author Organization [facility] Adult Address [address] [place] [address]- Care Team Providers Name Role Phone Baldev SAMUELS, Suzanne Jordan Primary Care Physician Encounter [facility] Date(s): 11/03/21 - 12/03/21 [facility] [address] [place] [address]- Allergies, Adverse Reactions, Alerts Substance Reaction Severity Status amoxicillin1 Facial swelling Persistent Severe Active Difficulty breathing Tylox Active HYDROcodone2 Active 1Tolerates [id number] Immunizations Given and Recorded Vaccine Date Status [...] 0 Refills, Maintenance, 11/09/21 9:06:00 EST, Solution, [facility]/pharmacy #[id number], Partial fill upon patient request if the [...]
--- OUTSIDE RECORDS SUMMARY | 2022-07-02 18:24 | XMS_ITS | Continuity of Care Document ---
:1975 Author Organization [address], [address] [place] [address]- Care Team Providers Name Role Phone Karan Cagle MD Primary Care Physician Encounter [facility] [place] Date(s): 10/10/19 - 11/20/[address], [address] [place] [address]- [facility] Attending Physician: Cristofer Valdes MD Referring Physician: Karan Cagle MD Allergies, [...]
--- OUTSIDE RECORDS SUMMARY | 2022-07-02 18:24 | XMS_ITS | Continuity of Care Document ---
:1975 Author Organization [address] [place] [address]- Care Team Providers Name Role Phone Baldev SAMUELS, Suzanne Jordan Primary Care Physician Encounter [facility] Date(s): 05/05/22 - 06/04/[address] [place] [address] Attending Physician: AdmAva jiménez Admitting Physician: Admtr, Ar8 Referring Physician: Admtr, Ar8 Allergies, Adverse Reactions, Alerts Substance Reaction Severity Status amoxicillin1 Facial swelling Persistent Severe Active Difficulty breathing Tylox Active HYDROcodone2 Active 1Tolerates [id number] Immunizations Given and Recorded Vaccine Date Status [...] capsule, By Mouth, 3 times a day, ORACLE 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 Refills 0, 03/03/22 11:11:00 EDT, [id number], cm, 12/28/21 12:52:00 EDT, Height Start Date: 03/03/22 Status: OrderedglipiZIDE 5 mg oral tablet 10 mg, 2, tablet, By Mouth, Daily, # 180 tablet, Refills 3, Tot. Refills 3, Maintenance, 12/28/21 13:30:00 EDT, Route to Pharmacy Electronically, [facility]/pharmacy #[id number], Partial fill upon patient request [...] 4 Unknown, 2 Refills, 04/25/22 9:11:00 EDT, [place] [id number], 175.26, cm, 03/30/22 11:40:00 EDT, Height, 97.5, kg, 03/19/22 1:23:00 EDT, Dry Weight Start Date: 04/25/22 Status: OrderedTums 500 mg oral tablet, chewable 500 mg, 1, tablet, Chew, Every 4 hours, PRN, # 45 tablet, Refills 0, Tot. Refills 0, Maintenance, Dyspepsia, 03/20/22 15:05:00 EDT, Route to Pharmacy Electronically, [facility], Partial fill upon patient request [...] PersonnelName: Suzanne De Paz NP Address: [address] [facility] 3rd floor [place], [place] [address]
--- OUTSIDE RECORDS SUMMARY | 2022-07-02 18:24 | XMS_ITS | Continuity of Care Document ---
:1975 Author Organization [address] [place] [address]- Care Team Providers Name Role Phone Karan Cagle MD Primary Care Physician Encounter [facility] [place] Date(s): 10/17/19 - 12/25/[address], [address] [place] [address]- [facility] Attending Physician: Cristofer Valdes MD Referring Physician: [...]
--- OUTSIDE RECORDS SUMMARY | 2022-07-02 18:24 | XMS_ITS | Continuity of Care Document ---
:1975 Author Organization [facility] Adult Address [address] [place] [address]- Care Team Providers Name Role Phone Baldev SAMUELS, Suzanne Jordan Primary Care Physician Encounter [facility] Date(s): 11/11/21 - 12/11/21 [facility] [address] [place] [address]- Allergies, Adverse Reactions, Alerts Substance Reaction Severity Status amoxicillin1 Facial swelling Persistent Severe Active Difficulty breathing Tylox Active HYDROcodone2 Active 1Tolerates [id number] Immunizations Given and Recorded Vaccine Date Status [...] 0 Refills, Maintenance, 12/06/21 12:20:00 EST, Solution, [facility]/pharmacy #[id number], Partial fill upon patient request if the [...]
--- OUTSIDE RECORDS SUMMARY | 2022-07-02 18:24 | XMS_ITS | Continuity of Care Document ---
:1975 Author Organization [facility] Address [address] [place] [address]- Care Team Providers Name Role Phone Baldev SAMUELS, Suzanne Jordan Primary Care Physician Encounter [facility] [place] Date(s): 07/27/21 - 08/26/21 [facility] [address] [place] [address]- Allergies, Adverse Reactions, Alerts Substance Reaction Severity Status amoxicillin1 Facial swelling Persistent Severe Active Difficulty breathing Tylox Active HYDROcodone2 Active 1Tolerates [id number] Immunizations Given and Recorded Vaccine Date Status [...]
--- OUTSIDE RECORDS SUMMARY | 2022-07-02 18:24 | XMS_ITS | Continuity of Care Document ---
:1975 Author Organization [facility] Adult Address [address] [place] [address]- Care Team Providers Name Role Phone Baldev SAMUELS, Suzanne Jordan Primary Care Physician Encounter [facility] Date(s): 01/06/22 - 02/05/22 [facility] [address] [place] [address]- Allergies, Adverse Reactions, Alerts Substance Reaction Severity Status amoxicillin1 Facial swelling Persistent Severe Active Difficulty breathing Tylox Active HYDROcodone2 Active 1Tolerates [id number] Immunizations Given and Recorded Vaccine Date Status [...] capsule, Refills 0, Route to Pharmacy Electronically, [id number], 180, cm, 12/28/21 12:52:00 EDT, Height Start Date: 01/25/22 Status: OrderedglipiZIDE 5 mg oral tablet 10 mg, 2, tablet, By Mouth, Daily, # 180 tablet, Refills 3, Tot. Refills 3, Maintenance, 12/28/21 13:30:00 EDT, Route to Pharmacy Electronically, [facility]/pharmacy #[id number], Partial fill upon patient request if [...] INJECTION SITES., # 2 Unknown, 1 Refills, [facility] [id number], 180, cm, 12/28/21 12:52:00 EDT, Height Start [...]
[2022-07-02 18:25] LABS: Anion Gap 19 (12-20); Blood Urea Nitrogen 11 mg/dL (9-16); Calcium 9.2 mg/dL (8.4-10.2); Carbon Dioxide 20 mmol/L (22-29); Chloride 103 mmol/L (96-108); Creatinine Clr Calc Pharmacy 105.4; Estimated Glomerular Filt Rate > 60; Glucose Random 186 mg/dL (60-115); Potassium 4.5 mmol/L (3.3-5.1); Sodium 137 mmol/L (135-145)
[2022-07-02 18:26] LABS: COVID-19 Test Negative (Negative); IDNOW Serial# 16C4AD1C
--- NOTE | 2022-07-02 18:50 | PC.NURSE ---
pt at doorway, acosting everyone who walks by about what the doctor said . this rn nearby, asking pt to further explain what is bothering him, when prompted pt sts well the thick accented doctor doesnt know whats going on and I just want to know when he feels like having time to explain that again . this rn sts will check providers availability to to come back, pt slams door shut.
--- NOTE | 2022-07-02 20:21 | PC.NURSE ---
Patient states he's very anxious stayed and listened to him and went over lab results with patient. Dr. Bermudez came in and explained why he needed antibiotics. Patient refused to let see his wound, refused blood cultures, and iv antibiotics. Sent Cyndi SMITH in to try to give antibiotics and start an IV. Patient refused.
--- NOTE | 2022-07-02 20:21 | PC.NURSE ---
i WENT IN TO ED 1 TO OBTAIN BLOOD CULTURES AND ESTABLISH IV ACCESS DUE TO PATIENT'S REFUSAL FROM NON- STAFF. PER PT I'M GOING TO LEAVE i WANT PAPERWORK. YOU CAN'T KEEP ME HERE. PT EDUCATED THAT IF HE WANTED TO LEAVE, W/O OBTAINING TREATMENT THAT WAS HIS PREROGATIVE, BEING ALERT AND ORIENTATED. SUBSEQUENTLY, ELOPING FROM THE EMERGENCY DEPARTMENT WOULD NOT BE BENEFICIAL TO HIS HEALTH. ULTIMATELY, HE COULD SUFFER INCREASING CONSEQUENCES UP TO AND INCLUDING INCREASING HIS MORBIDITY AND POTENTIALLY DYING FROM AN UNTREATED INFECTION. PER PT: FUCK ALL YOU. YOU'RE NOT EVEN WHITE ENOUGH. I'M GOING TO [facility] WHERE THEY AT LEAST KNOW HOW TO TREAT ME. PT GRABBED ALL BELONGINGS FROM ROOM, AND AMBULATED TO EXIT IN NO APPARENT DISTRESS. AIRWAY PATENT. NEUROS INTACT. GAIT STEADY. PRIMARY RN, CROSS COUNTRY COACH, AND PROVIDER MADE AWARE.
--- NOTE | 2022-07-02 20:23 | PC.NURSE ---
I spoke with this patient after multiple staff members stated he was giving staff a difficult time. When I spoke with him I pulled the curtain in the room because he kept referring to and complaqining about clerical staff that were sitting outside his room before I could even introduce myself. At the onset of the conversation he began using foul language and yelling. I politely asked him if we could have a low-volume, polite conversation. This made him more angry. He continually insisted I don't have bacteria in my blood. Why do they wanna give me antibiotics. I replied your doctor has requested that you receive additional IV antibiotics. If you wish to accept the treatment you can stay and be treated. If you wish to leave you can leave. At that time he ripped his coat off, yelled lets bobby do it then. Go get all your ethnic and your brown nurses and doctors and tell them I'm going to stay. At that time I informed the patient that I do not empathize with nor will I entertain any patient who spews racial hate speech, and I abruptly exited the room at which time he yelled, rather loudly, Fuck you man. Get the fuck out of here. I didn't Security was notified.
== END 2022-07-02 20:40 | disposition left against medical advice (07) ==
PROVIDERS: Emergency Provider Internal Medicine; PCP Nurse Practitioner Family
DX: R78.81 Bacteremia (principal); B95.61 Methicillin susceptible Staphylococcus aureus infection as the cause of diseases classified elsewhere; Z20.822 Contact with and (suspected) exposure to COVID-19; Z79.899 Other long term (current) drug therapy
CPT/HCPCS: 80048; 83605; 85025; 87040; 87635; 96374; 96375; 99283; 99284

== ENCOUNTER → 2022-09-14 14:07 | Outpatient (BNVA) | payer OTHER, SELFPAY | PROVIDERS: PCP Nurse Practitioner Family; Referring Provider Physician Assistant Medical; Visit Provider Surgery | DX: E11.621 Type 2 diabetes mellitus with foot ulcer (principal); E11.65 Type 2 diabetes mellitus with hyperglycemia; L97.526 Non-pressure chronic ulcer of other part of left foot with bone involvement without evidence of necrosis; L97.429 Non-pressure chronic ulcer of left heel and midfoot with unspecified severity; Z79.4 Long term (current) use of insulin | CPT/HCPCS: 99202 ==

== ENCOUNTER 2022-10-11 08:18 | Day surgery (SDC) | payer OTHER, SELFPAY ==
[2022-10-06 19:03] VITALS: BMI 31.6
--- NOTE | 2022-10-10 10:31 | HO.ANESPROP2 ---
Documented by User: Elizabeth Dillon NP 10/10/22 10:32 HPI - Anesthesia Eval Consult details Narrative: 47yo M for Left Third and Fourth Toe Amputation PMFSH Active Problems Active Problems: All Active Problems (Updated 10/06/22 @ 18:55 by Roxanne Hernandez RN) Positive blood culture (Acute) Bacteremia due to Streptococcus (Acute) Staphylococcus aureus bacteremia (Acute) 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 (Acute) Bacterial infection due to Streptococcus, group C (Acute) Past Medical History Medical History (Updated 10/06/22 @ 18:55 by Roxanne Hernandez RN) Acidosis, lactic Anxiety Bacterial infection due to Streptococcus, group C Cellulitis Diabetes type 2, controlled 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 GERD (gastroesophageal reflux disease) High cholesterol HTN (hypertension) Marijuana smoker MRSA (methicillin resistant Staphylococcus aureus) Posttraumatic stress disorder Right foot infection Staphylococcus aureus bacteremia Surgical History Surgical History (Updated 10/06/22 @ 19:06 by Roxanne Hernandez RN) History of incision and drainage History of laparoscopic cholecystectomy History of partial amputation of toe Social History Social History Household Members: None Housing: House Alcohol intake: never Patient Tobacco Use Status: Current everyday Tobacco user Tobacco use type: Cigarette Cigarette Packs Per Day: 0.5 Cigarettes Per Day: 10.0 Years Smoked: 20 Smoked in Last 30 Days: Yes Second Hand Smoke Exposure: No Use of substances other than those prescribed or required for medical reasons: Yes Substance Use Type: Marijuana Substance Use Frequency: Daily Advance Directives: No Advance Directives Information Provided: Yes Advance Directives on File: No Recently lost weight without trying: No Nutrition Risks: No Nutritional Risk service: No Current occupational status: disabled Meds Allergies Allergy/AdvReac Type Severity Reaction Status Date / Time amoxicillin [AMOXICILLIN] Allergy Severe ANAPHYLAXIS Verified 09/14/22 14:25 oxycodone [From Tylox] Allergy Intermediate Itching Verified 09/14/22 14:25 hydrocodone [HYDROCODONE] Allergy Unknown UNKNOWN Verified 09/14/22 14:25 From TYLOX Allergy Intermediate ITCHING Uncoded 09/14/22 14:25 Home Medications Medication Instructions Recorded Confirmed Last Taken Type ascorbic acid (vitamin C) 1,000 mg 500 mg PO DAILY 11/04/21 10/06/22 Unknown History tablet cholecalciferol (vitamin D3) 50 50 mcg PO DAILY 11/04/21 10/06/22 Unknown History mcg (2,000 unit) capsule dulaglutide 0.75 mg/0.5 mL 0.5 ml subcut MO 06/24/22 10/06/22 06/19/22 History subcutaneous pen injector (Trulicity) hydroxyzine HCl 25 mg tablet 25 mg PO BEDTIME 09/14/22 10/06/22 Unknown History gabapentin 100 mg capsule 100 mg PO TID 10/06/22 10/06/22 Unknown History lactobacillus combination no.4 3 3,000 mmu cells PO DAILY 10/06/22 10/06/22 Unknown History billion cell capsule (Probiotic) metformin 500 mg tablet 500 mg PO BID 10/06/22 10/06/22 Unknown History Exam Exam Date and Time: October 10, 2022 1031 Height,Weight and Vital Signs: Height 5 ft 9 in Weight 97.069 kg Pertinent Lab Results Pertinent Lab Results: Laboratory Tests 07/02/22 07/02/22 18:01 18:01 WBC 9.5 Hgb 18.7 H Hct 55.1 H Plt Count 323 Sodium 137 Potassium 4.5 Chloride 103 Carbon Dioxide 20 L BUN 11 Creatinine 0.96 Narrative Narrative: EKG 11/2021 Vent. Rate : 106 BPM ? ? Atrial Rate : 106 BPM ?? P-R Int : 124 ms? QRS Dur : 084 ms ? ? QT Int : 314 ms ? ? ? P-R-T Axes : 048 -80 033 degrees ?? QTc Int : 417 ms ? 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 GERD (gastroesophageal reflux disease) High cholesterol HTN (hypertension) Marijuana smoker MRSA (methicillin resistant Staphylococcus aureus) Posttraumatic stress disorder Right foot infection Staphylococcus aureus bacteremia Family History Family history of problems with anesthesia: No Surgical History Surgical History (Updated 10/06/22 @ 19:06 by Roxanne Hernandez RN) History of incision and drainage History of laparoscopic cholecystectomy History of partial amputation of toe History of Problems with Anesthesia: No Social History Social History Household Members: None Housing: House Alcohol intake: never Patient Tobacco Use Status: Current everyday Tobacco user Tobacco use type: Cigarette Cigarette Packs Per Day: 0.5 Cigarettes Per Day: 10.0 Years Smoked: 20 Smoked in Last 30 Days: Yes Second Hand Smoke Exposure: No Use of substances other than those prescribed or required for medical reasons: Yes Substance Use Type: Marijuana Substance Use Frequency: Daily Advance Directives: No Advance Directives Information Provided: Yes Advance Directives on File: No Recently lost weight without trying: No Nutrition Risks: No Nutritional Risk service: No Current occupational status: disabled Meds Allergies Allergy/AdvReac Type Severity Reaction Status Date / Time amoxicillin [AMOXICILLIN] Allergy Severe ANAPHYLAXIS Verified 09/14/22 14:25 oxycodone [From Tylox] Allergy Intermediate Itching Verified 09/14/22 14:25 hydrocodone [HYDROCODONE] Allergy Unknown UNKNOWN Verified 09/14/22 14:25 From TYLOX Allergy Intermediate ITCHING Uncoded 09/14/22 14:25 Home Medications Medication Instructions Recorded Confirmed Last Taken Type ascorbic acid (vitamin C) 1,000 mg 500 mg PO DAILY 11/04/21 10/06/22 Unknown History tablet cholecalciferol (vitamin D3) 50 50 mcg PO DAILY 11/04/21 10/06/22 Unknown History mcg (2,000 unit) capsule dulaglutide 0.75 mg/0.5 mL 0.5 ml subcut MO 06/24/22 10/06/22 06/19/22 History subcutaneous pen injector (Trulicity) hydroxyzine HCl 25 mg tablet 25 mg PO BEDTIME 09/14/22 10/06/22 Unknown History gabapentin 100 mg capsule 100 mg PO TID 10/06/22 10/06/22 Unknown History lactobacillus combination no.4 3 3,000 mmu cells PO DAILY 10/06/22 10/06/22 Unknown History billion cell capsule (Probiotic) metformin 500 mg tablet 500 mg PO BID 10/06/22 10/06/22 Unknown History Exam Airway Mallampati Class: II TM Dist: >3cm Neck ROM: Full Denture: Upper and Lower Heart: rr Lungs: cta Assessment and Plan Assessment Anesthesia Assessment: Anesthesia Plan Discussed Final Anesthetic Review Family History of Problems with Anesthesia: No History of Problems with Anesthesia: No NPO: Yes ASA Class: III Final Preanesthetic Review: No Changes in Pt Med Stat, Meds/Allgs Chart Reviewed, Consent Obtained/Reviewed and Anes Risks/Benef Reviewed Patient Risk: Low Procedure Risk: Low Anesthetic Plan Anesthetic Plan: GA Disposition: Standard PACU
[2022-10-11] VITALS (9 sets, daily range): BP systolic 98–120; BP diastolic 50–75; PULSE 83–101; RESP 9–18; TEMP 36.1–36.8; O2SAT 93–99
[2022-10-11 08:48] LABS: Glucose, Whole Blood 184 mg/dL (60-115)
--- NOTE | 2022-10-11 08:51 | MHC.SHP ---
Pre-Procedural Eval Section A Date of Service: 10/11/22 The patient is an INPATIENT: No Changes since office visit: Yes Patient answered all questions; No Cold of Flu in the past 2 weeks, No New Medical Problems and No Changes in Medication The History & Physical has been completed within 30 days and I have reviewed it.: Yes Section B Chief Complaint: Diabetes mellitus,foot ulcer Allergies: Allergies Allergy/AdvReac Type Severity Reaction Status Date / Time amoxicillin [AMOXICILLIN] Allergy Severe ANAPHYLAXIS Verified 09/14/22 14:25 oxycodone [From Tylox] Allergy Intermediate Itching Verified 09/14/22 14:25 hydrocodone [HYDROCODONE] Allergy Unknown UNKNOWN Verified 09/14/22 14:25 From TYLOX Allergy Intermediate ITCHING Uncoded 09/14/22 14:25 Plan Diagnosis/Plan: Unchanged I have reviewed the history and physical and performed a pertinent physical examination on my patient. No changes have occurred unless specified. Time Spent With Patient Time: Total time managing care of this patient today __10__ minutes.
[2022-10-11] MEDS: Lactated Ringers 1,000 ML 100 ML IVCONT (08:54)
[2022-10-11] MEDS: vancomycin HCL 1,500 MG in 0.9 % Sodium Chloride 500 ML 333.33 MG IV (08:54)
--- NOTE | 2022-10-11 10:00 | P.OP_ITS ---
Operative Note Operative Note Date of Service: 10/11/22 Narrative: Preoperative diagnosis: Osteomyelitis left 4th toe Postoperative diagnosis: same Procedure: amputation of left 3rd 4th toe Surgeon: Todd Singh MD Property Officer: Yashira Saba PA-C Anesthesia: general LMA Indications for procedure: 47-year-old male patient presenting with a prior history of 3rd toe osteomyelitis status post amputation of proximal phalanx now with osteomyelitis to 4th toe. He presents for amputation of the left 4th and 3rd toes Operative findings: evidence of osteomyelitis involving both the 3rd 4th toes left foot Specimen: left 3rd and 4th toe amputation Estimated blood loss: 20 mL Complications: none Procedure details: patient was brought to the OR placed in a supine position. After administering general anesthesia the patient's left foot was prepped with Betadine and draped in a sterile fashion. A surgical time-out was called the consent confirmed. Patient received preoperative antibiotics and Venodyne boots were in place. Local anesthesia consisting of 0.5% Sensorcaine plain was infiltrated as a digital block. A radial incision was then made between the 3rd and 4th toe extending from the plantar surface to the dorsal surface. This included a plantar ulceration over the 3rd metatarsal. Incision was deepened through subcutaneous tissue down to proximal phalanx and both 3rd and 4th toe. Electrocautery was then used to dissect down along the proximal phalanx and the distal metatarsal head. The 3rd 4th toes were then resected at the MP joints. Dissection of the metatarsal heads was continued more proximal and a bone cutter used to resect the metatarsal head. This was further trimmed at the edges using a rongeur. Hemostasis was assured using electrocautery. Wounds were irrigated thoroughly with saline solution. Deep subcutaneous tissue and dermis were then reapproximated using interrupted 3-0 Polysorb sutures. Skin was closed using interrupted 3-0 nylon sutures. Sterile dressings consisting of fluff gauze, Kerlix, and Jaylen bandage were then applied. The patient tolerated the procedure well. Sponge, instrument, and needle counts reported as correct. Patient was transferred to PACU in stable condition.
== END 2022-10-11 13:10 | disposition home or self-care (01) ==
PROVIDERS: PCP Nurse Practitioner Family; Visit Provider Surgery
PROC: (CPT 28810; principal; 2022-10-11 08:40)
DX: M86.9 Osteomyelitis, unspecified (principal); E08.621 Diabetes mellitus due to underlying condition with foot ulcer; L97.526 Non-pressure chronic ulcer of other part of left foot with bone involvement without evidence of necrosis; Z89.422 Acquired absence of other left toe(s); B95.62 Methicillin resistant Staphylococcus aureus infection as the cause of diseases classified elsewhere; B95.4 Other streptococcus as the cause of diseases classified elsewhere; Z79.85 Long-term (current) use of injectable non-insulin antidiabetic drugs; I10 Essential (primary) hypertension; F43.10 Post-traumatic stress disorder, unspecified; E78.00 Pure hypercholesterolemia, unspecified; Z79.899 Other long term (current) drug therapy; Z88.0 Allergy status to penicillin; Z88.8 Allergy status to other drugs, medicaments and biological substances; Z90.49 Acquired absence of other specified parts of digestive tract; F17.210 Nicotine dependence, cigarettes, uncomplicated; F12.90 Cannabis use, unspecified, uncomplicated
CPT/HCPCS: 28810 ×2; 82947; 88305; 88311; J2250; J2370; J2405; J2795; J3010; J3371

== ENCOUNTER → 2022-10-20 09:06 | Outpatient (BNVA) | payer OTHER, SELFPAY | PROVIDERS: PCP Nurse Practitioner Family; Referring Provider Nurse Practitioner Family; Visit Provider Surgery | DX: Z13.89 Encounter for screening for other disorder (principal) ==

== ENCOUNTER 2022-11-29 13:25 | Emergency (ER) | payer OTHER, SELFPAY ==
--- NOTE | ~2022-11-29 | XR_ITS ---
EXAMINATION: XR FOOT, LEFT CLINICAL INFORMATION: Evaluate for osteomyelitis COMPARISON: 06/19/2022 TECHNIQUE: AP, lateral, and oblique views of the left foot. FINDINGS: The distal aspect of the third and fourth digit are not seen. This would include the area from the distal aspect of the metatarsals more distally. This could be postsurgical versus infectious. I cannot determined between these on this film. Otherwise there is no convincing evidence for an acute bony erosion. Some subtle observations in the distal aspect of the proximal phalanx the fifth digit. Bony injury here cannot be excluded. Correlation recommended clinically. No convincing evidence for bony erosion. XR/XR foot LT 2V IMPRESSION: As stated nonvisualization of the bone from the distal metatarsals of the third and fourth digit distally. Although this could be postsurgical change infection needs to be considered. There is some periosteal reaction and irregular bone in the region. Correlation recommended for the distal aspect of the proximal phalanx of the fifth digit. Some mild cortical irregularity. This could be traumatic.
[2022-11-29 14:04] VITALS: BP 103/65; PULSE 100; O2SAT 98; BMI 29.7
--- NOTE | 2022-11-29 14:30 | MHC.CM.ED ---
Received notification from [facility] that patient is active with their agency. Referral put in [facility] so [facility] can follow for d/c needs.
--- NOTE | 2022-11-29 15:28 | ED_ITS ---
HPI - General Adult General Chief complaint: General Medical Stated complaint: Poss L leg infection, from home per EMS Time Seen by Provider: 11/29/22 15:05 Source: patient Mode of arrival: EMS Limitations: no limitations History of Present Illness HPI narrative: Patient comes to the emergency room complaining of a possible infection in his toe around the amputation site on his left foot that started 2-3 days ago. Patient denies fever chills. Patient was sent here by his visiting nurse. Unclear why patient arrived angry, patient being hostile, verbally abusive towards staff, rude. Patient took his smelly socks off and threw them on the tech's face. Related Data Home Medications Medication Instructions Recorded Confirmed cholecalciferol (vitamin D3) 50 50 mcg PO DAILY 11/04/21 11/29/22 mcg (2,000 unit) capsule hydroxyzine HCl 25 mg tablet 25 mg PO QID PRN Anxiety 09/14/22 11/29/22 gabapentin 100 mg capsule 100 mg PO TID 10/06/22 11/29/22 lactobacillus combination no.4 3 3,000 mmu cells PO DAILY 10/06/22 11/29/22 billion cell capsule (Probiotic) metformin 500 mg tablet 500 mg PO BID 10/06/22 11/29/22 ascorbic acid (vitamin C) 500 mg 500 mg PO DAILY 11/29/22 11/29/22 tablet dulaglutide 1.5 mg/0.5 mL 1.5 mg subcut QWEEK 11/29/22 11/29/22 subcutaneous pen injector (Trulicity) glipizide 5 mg tablet 10 mg PO DAILY 11/29/22 11/29/22 Previous Rx's Medication Instructions Recorded doxycycline hyclate 100 mg capsule 100 mg PO BID #20 caps 11/29/22 Allergies Allergy/AdvReac Type Severity Reaction Status Date / Time amoxicillin [AMOXICILLIN] Allergy Severe ANAPHYLAXIS Verified 10/20/22 09:31 oxycodone [From Tylox] Allergy Intermediate Itching Verified 10/20/22 09:31 hydrocodone [HYDROCODONE] Allergy Unknown UNKNOWN Verified 10/20/22 09:31 From TYLOX Allergy Intermediate ITCHING Uncoded 10/20/22 09:31 Review of Systems Review of Systems: Constitutional : No Weight loss, No Fever, No Chills, No Night Sweats, No Fatigue, No Malaise ENT/Mouth : No Hearing loss, No Ear Pain, No Nasal Congestion, No Sinus Pain, No Hoarseness, No sore throat, No Rhinorrhea, No Swallowing Difficulty Eyes: No Eye Pain, No Swelling, No Redness, No Foreign Body, No Discharge, No Vision Changes Cardiovascular : No Chest Pain, No SOB, No Dyspnea on Exertion, No Orthopnea, No Edema, No Palpitations Respiratory : No Cough, No Sputum, No Wheezing, No Smoke Exposure, No Dyspnea Gastrointestinal : No Nausea, No Vomiting, No Diarrhea, No Constipation, No abdominal Pain, No Hematochezia, No Melena Genitourinary : no irregular bleeding, No Dysuria, No Urinary Frequency, No Hematuria, No Urinary Incontinence, No Urgency, No Flank Pain, No Urinary Flow Changes, No Hesitancy Musculoskeletal : No joint pain, No Myalgias, No Joint Swelling Skin : Complaining of redness around the fall Neuro : No Weakness, No Numbness, No Paresthesias, No Loss of Consciousness, No Dizziness, No Headache Psych : No Anxiety/Panic, No Depression, No SI/HI/AH/VH, No Social Issues, Heme/Lymph: No Bruising, No Bleeding,No Lymphadenopathy Endocrine : No Polyuria, No Polydipsia, No Temperature Intolerance PMFSH Past Medical History Medical History Acidosis, lactic Anxiety Bacterial infection due to Streptococcus, group C Cellulitis Diabetes type 2, controlled 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 GERD (gastroesophageal reflux disease) High cholesterol HTN (hypertension) Marijuana smoker MRSA (methicillin resistant Staphylococcus aureus) Posttraumatic stress disorder Right foot infection Staphylococcus aureus bacteremia Surgical History History of incision and drainage History of laparoscopic cholecystectomy History of partial amputation of toe (10/11/22) Social History Social History Household Members: None Housing: House Alcohol intake: never Patient Tobacco Use Status: Current everyday Tobacco user Tobacco use type: Cigarette Cigarette Packs Per Day: 0.5 Cigarettes Per Day: 10.0 Years Smoked: 20 Second Hand Smoke Exposure: No Substance Use Type: Marijuana Advance Directives: No Advance Directives Information Provided: Yes service: No Current occupational status: disabled Physical Exam ED Vital Signs: Vital Signs - 24 hr 11/29/22 16:00 11/29/22 18:00 11/29/22 20:23 Temperature 98.6 F 98.4 F 97.8 F Pulse Rate 84 80 86 Respiratory Rate 16 16 21 H Blood Pressure 111/69 124/70 112/71 Pulse Oximetry 96 96 99 Oxygen Delivery Method Room Air Room Air Room Air BMI result Body Mass Index 29.7 Const Other: Appearance: Alert. Oriented X3. No acute distress. Eyes: Pupils equal, round and reactive to light. ENT: Pharynx normal. Neck: Normal inspection. Neck supple. No lymph nodes noted. No crepitus CVS: Normal heart rate and rhythm. Pulses normal. Normal S1 and S2 Respiratory: No respiratory distress. Breath sounds normal. No Wheezing. No rales Abdomen: Soft and nontender. No rigidity. No distention. Skin: Patient refuses to have his bandage being taken of Extremities: No lower extremity edema. No Lacerations. No Rash Neuro: Oriented X 3. No motor deficit. No sensory deficit. Moving all extremities. No slurred speech. CN 2 through 12 grossly intact Psych: calm, cooperative, normal affect Course Course Course Narrative: -after talking with the patient, he agrees to have his bandage taken off after his nurse shows him that we have the topical medications that they use at the wound clinic. -labs pending -reviewing patient's records, patient was seen here on 06/24/2022, patient refused admission in the he was diagnosed with bacteremia secondary to possible osteomyelitis. Of note, it was also documented that the patient had a similar pattern of hostile behavior. Medical Decision Making Medical Decision Making [facility] Narrative: -I discussed with the patient that his white blood cell count is elevated. ESR CRP elevated as well. None. X-ray is nonspecific, surgical changes versus infection. Patient still refusing to take his bandage of his foot off because the brand of the medication that he is requesting is not available. -Full evaluation of the foot is not possible this time, patient uncooperative, calling the staff cunts telling nurses and techs that he will stick his foot up their ass -patient yelling that he wants his medication p.o. and be discharged. I Discussed with the patient that we do not have a full evaluation given that he is uncooperative and unwilling to let us see his foot. Also discussed with the patient that there may be some cortical irregularity, traumatic versus infectious. He will need an MRI. -patient stating that we are the worst hospital ever because MRI will not come at this time to the foot MRI. Patient yelling that he watches medical shows like the good doctor and that we are stupid. -patient agreeable to stay. started vancomycin, no fever, normal temperature, sepsis is not suspected. Patient has anaphylaxis to amoxicillin -I keep getting complains from the staff that the patient is very disrespectful and hostile towards them. Security has been called. -I discussed the patient with Dr. Ireland. Patient to be admitted. I discussed with Dr. Ireland that based on the patient's previous admission, patient left AMA within a few hours of being admitted. -Dr. Samuel went to the patient's room to get him admitted. Patient refused IV antibiotics, patient refused to shorten his foot. Patient refused any care. Patient told Dr. Samuel to go suck his karlene and to get the fuck out of the room . Dr. Samuel will not be admitting the patient as he is refusing all care -patient is not septic, alert and oriented x3 -charge nurse went into the room to start an IV, told the charge nurse to get the fuck out of the room as well and proceeded to tell his nurse that she is fucken ugly -patient is refusing all care. Patient being discharged Differential Diagnosis Differential Diagnoses: The differential diagnosis associated with the presentat ion includes (Cellulitis, osteomyelitis) Admission/Observation Consideration of admission/observation: Escalation of care including admission/observation considered Consult Healthcare Provider Management of the patient was discussed with: Hospitalist Lab Data [facility] Lab Attestation statement: I reviewed the patient's lab results. 11/29/22 15:55 11/29/22 15:55 Labs: Lab Results 11/29/22 11/29/22 11/29/22 Range/Units 15:55 15:55 15:55 WBC 14.0 H (4.8-10.8) X10*3/uL RBC 5.90 H (4.60-5.80) X10*6/uL Hgb 17.5 (14.0-18.0) g/dl Hct 50.7 (42.0-52.0) % MCV 85.9 (80.0-98.0) fL MCH 29.7 (27.0-33.0) pg MCHC 34.5 (31.0-36.0) g/dl RDW 13.1 (11.0-16.0) % Plt Count 363 (160-400) X10*3/uL MPV 8.8 L (9.4-12.4) fL Immature Gran % (Auto) 0.5 H (0.0-0.4) % Neut % (Auto) 78.8 H (45-73) % Lymph % (Auto) 12.8 L (20-40) % Harding % (Auto) 7.6 (2-11) % Eos % (Auto) 0.0 (0-4) % Baso % (Auto) 0.3 (0-2) % Lymph # (Auto) 1.8 (1.2-4.9) X10*3/uL Harding # (Auto) 1.1 (0.1-1.2) X10*3/uL Eos # (Auto) 0.0 (0.0-0.4) X10*3/uL Baso # (Auto) 0.0 (0.0-0.2) X10*3/uL Abs Immat Gran (auto) 0.07 H (0.00-0.03) X10*3/uL Absolute Neuts (auto) 11.1 H (2.0-8.3) x10*3/uL Absolute Nucleated RBC 0.000 (0.0-0.012) X10*3/uL Nucleated RBC % (auto) 0.0 (0.0-0.2) /100WBC ESR 27 H (0-15) MM/HR Sodium 137 (135-145) mmol/L Potassium 4.4 (3.3-5.1) mmol/L Chloride 103 (96-108) mmol/L Carbon Dioxide 24 (22-29) mmol/L Anion Gap 14 (12-20) BUN 11 (9-16) mg/dL Creatinine 0.95 (0.5-1.4) mg/dL Estim Creat Clear Calc 106.2 Estimated GFR > 60 Random Glucose 120 H (60-115) mg/dL Lactic Acid (0.5-2.0) mmol/L Calcium 9.1 (8.4-10.2) mg/dL C-Reactive Protein 9.00 H (< or = 0.50) mg/dL 11/29/22 Range/Units 15:55 WBC (4.8-10.8) X10*3/uL RBC (4.60-5.80) X10*6/uL Hgb (14.0-18.0) g/dl Hct (42.0-52.0) % MCV (80.0-98.0) fL MCH (27.0-33.0) pg MCHC (31.0-36.0) g/dl RDW (11.0-16.0) % Plt Count (160-400) X10*3/uL MPV (9.4-12.4) fL Immature Gran % (Auto) (0.0-0.4) % Neut % (Auto) (45-73) % Lymph % (Auto) (20-40) % Harding % (Auto) (2-11) % Eos % (Auto) (0-4) % Baso % (Auto) (0-2) % Lymph # (Auto) (1.2-4.9) X10*3/uL Harding # (Auto) (0.1-1.2) X10*3/uL Eos # (Auto) (0.0-0.4) X10*3/uL Baso # (Auto) (0.0-0.2) X10*3/uL Abs Immat Gran (auto) (0.00-0.03) X10*3/uL Absolute Neuts (auto) (2.0-8.3) x10*3/uL Absolute Nucleated RBC (0.0-0.012) X10*3/uL Nucleated RBC % (auto) (0.0-0.2) /100WBC ESR (0-15) MM/HR Sodium (135-145) mmol/L Potassium (3.3-5.1) mmol/L Chloride (96-108) mmol/L Carbon Dioxide (22-29) mmol/L Anion Gap (12-20) BUN (9-16) mg/dL Creatinine (0.5-1.4) mg/dL Estim Creat Clear Calc Estimated GFR Random Glucose (60-115) mg/dL Lactic Acid 1.5 (0.5-2.0) mmol/L Calcium (8.4-10.2) mg/dL C-Reactive Protein (< or = 0.50) mg/dL Radiology Impression Discussion of test interpretation with radiology: I have reviewed the radiologist's reading. Radiologist Impression: IMPRESSION: As stated nonvisualization of the bone from the distal metatarsals of the third and fourth digit distally. Although this could be postsurgical change infection needs to be considered. There is some periosteal reaction and irregular bone in the region. ? Correlation recommended for the distal aspect of the proximal phalanx of the fifth digit. Some mild cortical irregularity. This could be traumatic. Critical Care Time Critical Care Time Critical Care Time: Yes Total Critical Care Time: 60 Attestation: I have personally provided critical care time. Time includes review of lab data, radiology results, discussion with consultants, and monitoring for potential decompensation. Intervention performed as documented. Discharge Plan Discharge Clinical Impression: Cellulitis Patient Disposition: Home, Self-Care Instructions: Cellulitis (ED) Additional Instructions: You refused all care, refused IV antibiotics, refused to talk to the hospitalist. Please follow-up with your primary care physician tomorrow. If you have any worsening or new symptoms, please return to the emergency room or c all 911 Prescriptions: New doxycycline hyclate 100 mg capsule 100 mg PO BID Qty: 20 0RF No Action cholecalciferol (vitamin D3) 50 mcg (2,000 unit) Capsule 50 mcg PO DAILY metformin 500 mg Tablet 500 mg PO BID gabapentin 100 mg Capsule 100 mg PO TID Probiotic 3 billion cell Capsule 3,000 mmu cells PO DAILY Rx Instructions: administer with a meal glipizide 5 mg Tablet 10 mg PO DAILY Trulicity 1.5 mg/0.5 mL Pen Injector 1.5 mg SUBCUT QWEEK ascorbic acid (vitamin C) 500 mg Tablet 500 mg PO DAILY hydroxyzine HCl 25 mg tablet 25 mg PO QID PRN (Reason: Anxiety) Interventions: ED Discharge Assessment Last Done: 11/29/22 21:52
[2022-11-29 15:59] LABS: MANUAL DIFF FLAG NO
[2022-11-29 16:00] VITALS: BP 111/69; PULSE 84; RESP 16; TEMP 37; O2SAT 96
[2022-11-29 16:10] LABS: Basophils Percent Auto 0.3 % (0-2); Hematocrit 50.7 % (42.0-52.0); Hemoglobin 17.5 g/dl (14.0-18.0); Imm Gran Abs Auto 0.07 X10*3/uL (0.00-0.03); Imm Gran Pct Auto 0.5 % (0.0-0.4); Lymphocytes Absolute Auto 1.8 X10*3/uL (1.2-4.9); Lymphocytes Percent Auto 12.8 % (20-40); Mean Corpuscular HGB Conc 34.5 g/dl (31.0-36.0); Mean Corpuscular Hemoglobin 29.7 pg (27.0-33.0); Mean Corpuscular Volume 85.9 fL (80.0-98.0); Mean Platelet Volume 8.8 fL (9.4-12.4); Monocytes Absolute Auto 1.1 X10*3/uL (0.1-1.2); Monocytes Percent Auto 7.6 % (2-11); Neutrophils Absolute Auto 11.1 x10*3/uL (2.0-8.3); Neutrophils Percent Auto 78.8 % (45-73); Platelet Count 363 X10*3/uL (160-400); Red Cell Distribution Width 13.1 % (11.0-16.0)
[2022-11-29 16:25] LABS: Lactic Acid 1.5 mmol/L (0.5-2.0)
[2022-11-29 16:28] LABS: Anion Gap 14 (12-20); Blood Urea Nitrogen 11 mg/dL (9-16); Calcium 9.1 mg/dL (8.4-10.2); Carbon Dioxide 24 mmol/L (22-29); Chloride 103 mmol/L (96-108); Creatinine Clr Calc Pharmacy 106.2; Estimated Glomerular Filt Rate > 60; Glucose Random 120 mg/dL (60-115); Potassium 4.4 mmol/L (3.3-5.1); Sodium 137 mmol/L (135-145)
--- NOTE | 2022-11-29 16:34 | MHC.EDTECH ---
this pct assumed care of pt at 1500 ,pt 1600 rounding done ,vitals sign taken ,blood culture drawn and sent to lab .
[2022-11-29 16:46] LABS: Erythrocyte Sedimentation Rate 27 MM/HR (0-15)
[2022-11-29 18:00] VITALS: BP 124/70; PULSE 80; RESP 16; TEMP 36.9; O2SAT 96
--- NOTE | 2022-11-29 19:00 | MHC.EDTECH ---
pt had 100 % of turkey dinner ,drank 360 ml fluids .
--- NOTE | 2022-11-29 19:40 | PHA.MEDREC ---
Pharmacy Consult ? Medication Reconciliation Pharmacy has completed the medication reconciliation. med rec done per claim history
[2022-11-29 20:23] VITALS: BP 112/71; PULSE 86; RESP 21; TEMP 36.6; O2SAT 99
--- NOTE | 2022-11-29 21:37 | PC.NURSE ---
Pt. refusing care. Verbally abusing RNs, , threw dirty socks at pourer metal. Pt. had multiple outbursts during the shift, verbally abusing staff. When RN went in to place IV and administer antibiotics, pt. became extremely verbally abusive towards Hospitalist and RN, telling them to suck his karlene, get the fuck out of my room now. Pt. is refusing further care and Hospitalist is refusing care of pt. at this time due to excessive abuse towards all staff members and attempts at care.
== END 2022-11-30 02:28 | disposition home or self-care (01) ==
PROVIDERS: Emergency Provider Emergency Medicine
DX: L03.032 Cellulitis of left toe (principal); Z89.422 Acquired absence of other left toe(s); R45.1 Restlessness and agitation; Z91.198 Patient's noncompliance with other medical treatment and regimen for other reason; E11.9 Type 2 diabetes mellitus without complications; E78.5 Hyperlipidemia, unspecified; F43.10 Post-traumatic stress disorder, unspecified; F17.210 Nicotine dependence, cigarettes, uncomplicated; F12.90 Cannabis use, unspecified, uncomplicated; Z86.14 Personal history of Methicillin resistant Staphylococcus aureus infection; Z79.84 Long term (current) use of oral hypoglycemic drugs; Z79.899 Other long term (current) drug therapy
CPT/HCPCS: 36415; 73620; 80048; 83605; 85025; 85652; 86140; 87040; 99283

== ENCOUNTER 2022-12-01 15:26 | Outpatient (REF) | payer OTHER, SELFPAY | END 2022-12-01 15:27 | disposition home or self-care (01) | LOC: HO.LNP 15:26 | PROVIDERS: Visit Provider Physician Assistant | DX: S91.302A Unspecified open wound, left foot, initial encounter (principal); X58.XXXA Exposure to other specified factors, initial encounter; Y93.9 Activity, unspecified; Y92.9 Unspecified place or not applicable; Y99.9 Unspecified external cause status | CPT/HCPCS: 87070; 87205 ==

== ENCOUNTER 2022-12-08 10:53 | Inpatient (IN) | payer OTHER, SELFPAY ==
--- NOTE | ~2022-12-08 | XR_ITS ---
EXAMINATION: XR FOOT, LEFT CLINICAL INFORMATION: Left foot wound with swelling. COMPARISON: Left foot radiographs dated 11/29/2022. TECHNIQUE: AP, lateral, and oblique views of the left foot. FINDINGS: Moderate swelling and subcutaneous air are seen in the fifth digit, increased from the previous study. The underlying phalanges are intact. Increased lucencies are seen in the distal head of the fifth metatarsal. Lucency is also seen in the distal head of the fourth metatarsal. Post surgical changes are seen in the third digit with resection of the third metatarsal head. The distal osseous margin is intact. XR/XR foot LT min 3V IMPRESSION: 1. Moderate swelling and subcutaneous air in the fifth digit, increased from the previous study. 2. Increased lucencies in the distal head of the fifth metatarsal and distal head of the fourth metatarsal are nonspecific. Osteomyelitis cannot be excluded.
[2022-12-08 11:03] VITALS: BP 109/68; BP 98/54; PULSE 90; PULSE 98; RESP 18; TEMP 37; O2SAT 100; O2SAT 99; BMI 29.7
[2022-12-08] MEDS: cefEPime HCl 1 GM in 0.9 % Sodium Chloride 50 ML IV (12:03)
[2022-12-08 12:05] LABS: MANUAL DIFF FLAG NO
--- NOTE | 2022-12-08 12:09 | ED_ITS ---
HPI - General Adult General Chief complaint: Wound/Laceration Stated complaint: Foot infection per EMS Time Seen by Provider: 12/08/22 11:19 Source: patient Mode of arrival: ambulatory Limitations: no limitations History of Present Illness HPI narrative: 47-year-old male with history of type 2 diabetes presents with wound infection. Patient has been under outpatient care including wound therapy for least a week to 10 days. He was in the emergency department [facility] antibiotics for left foot infection. He was subsequently seen at [facility] for similar situation with him again he was provided with antibiotics. He has been followed by wound care and has noticed that there has been increased swelling and redness to his left little toe. Pain is mild in nature. Is worse with palpation. The pain does not radiate. He has had no fevers or chills. He does have recent wound VAC to the area. He denies any lymphangitic spread. No other systemic symptoms. Related Data Home Medications Medication Instructions Recorded Confirmed cholecalciferol (vitamin D3) 50 50 mcg PO DAILY 11/04/21 11/29/22 mcg (2,000 unit) capsule hydroxyzine HCl 25 mg tablet 25 mg PO QID PRN Anxiety 09/14/22 11/29/22 gabapentin 100 mg capsule 100 mg PO TID 10/06/22 11/29/22 lactobacillus combination no.4 3 3,000 mmu cells PO DAILY 10/06/22 11/29/22 billion cell capsule (Probiotic) metformin 500 mg tablet 500 mg PO BID 10/06/22 11/29/22 ascorbic acid (vitamin C) 500 mg 500 mg PO DAILY 11/29/22 11/29/22 tablet dulaglutide 1.5 mg/0.5 mL 1.5 mg subcut QWEEK 11/29/22 11/29/22 [facility] glipizide 5 mg tablet 10 mg PO DAILY 11/29/22 11/29/22 Previous Rx's Medication Instructions Recorded doxycycline hyclate 100 mg capsule 100 mg PO BID #20 caps 11/29/22 Allergies Allergy/AdvReac Type Severity Reaction Status Date / Time amoxicillin [AMOXICILLIN] Allergy Severe ANAPHYLAXIS Verified 10/20/22 09:31 oxycodone [From Tylox] Allergy Intermediate Itching Verified 10/20/22 09:31 hydrocodone [HYDROCODONE] Allergy Unknown UNKNOWN Verified 10/20/22 09:31 From TYLOX Allergy Intermediate ITCHING Uncoded 10/20/22 09:31 [facility] Past Medical History Medical History Acidosis, lactic Anxiety Bacterial infection due to Streptococcus, group C Cellulitis Diabetes type 2, controlled 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 GERD (gastroesophageal reflux disease) High cholesterol HTN (hypertension) Marijuana smoker MRSA (methicillin resistant Staphylococcus aureus) Posttraumatic stress disorder Right foot infection Staphylococcus aureus bacteremia Surgical History History of incision and drainage History of laparoscopic cholecystectomy History of partial amputation of toe (10/11/22) Social History Social History Household Members: None Housing: House Alcohol intake: never Patient Tobacco Use Status: Current everyday Tobacco user Tobacco use type: Cigarette Cigarette Packs Per Day: 0.5 Cigarettes Per Day: 10.0 Years Smoked: 20 Second Hand Smoke Exposure: No Substance Use Type: Marijuana Advance Directives: No Advance Directives Information Provided: Yes service: No Current occupational status: disabled Physical Exam ED Vital Signs: Vital Signs - 24 hr 12/08/22 11:03 Temperature 98.6 F Pulse Rate 90 Respiratory Rate 18 Blood Pressure 98/54 L Pulse Oximetry 100 Oxygen Delivery Method Room Air BMI result Body Mass Index 29.7 GEN: Well developed, no acute distress, alert, oriented HEENT: Normocephalic, atraumatic, normal external ears, nose appears normal, no oropharyngeal edema or exudates Eyes: Normal to appearance Neck: Supple, no lymphadenopathy Respiratory: Talks in complete sentences, no respiratory distress, clear to auscultation bilaterally Cardiovascular: Regular rate and rhythm, no murmurs rubs or gallops Abdomen: Soft, nontender, nondistended, no guarding, no rebound Back: No CVA tenderness Extremities: No clubbing cyanosis, status post to ray amputation left foot. Left 5th digit sausage appearing, wound on the lateral aspect of the foot, redness, no significant tenderness Neurologic: No focal neurologic deficits, cranial nerves 2-12 intact, strength is 5/5 bilaterally, gait normal Skin: No rash Course Course Course Narrative: 47-year-old male presents with wound infection. Patient has failed outpatient therapy at this time on oral antibiotics for well over a week. Said no fevers or chills. He does have history of ray amputation type 2 diabetes. Will start patient on cefepime and vancomycin given history of allergy to penicillins. This will give him coverage for Pseudomonas as well as MRSA. Blood cultures, lactic acid have been ordered. Will order inflammatory markers. Will also obtain an x-ray of left foot to rule out osteomyelitis. Reevaluation(s) Reevaluation #1: Discussed results with the patient. Patient appears to have osteomyelitis that has developed since his last x-ray. His receive cefepime and vancomycin. Discussed with the hospitalist. Will admit. Time: 12:37 Medications Administered Discontinued Medications Generic Name Dose Route Start Last Admin Trade Name Freq PRN Reason Stop Dose Admin Cefepime HCl 1 gm/ Sodium 50 mls @ 100 mls/hr 12/08/22 11:38 12/08/22 12:33 Chloride IV 12/08/22 12:07 Infused ONCE ONE Infusion Medical Decision Making Medical Decision Making [facility] Narrative: 47-year-old male with wound infection, failing outpatient management, will require hospitalization. Patient has type 2 diabetes which is inhibiting his ability to heal. Has had a history of amputations on the same foot previously. Broad-spectrum antibiotics for coverage including Pseudomonas as well as MRSA have been ordered Differential Diagnosis Differential Diagnoses: The differential diagnosis associated with the presentation includes (Cellulitis, osteomyelitis, digit injury, abscess) Osteomyelitis Admission/Observation Consideration of admission/observation: Escalation of care including admission/observation considered Osteomyelitis Consult Healthcare Provider Management of the patient was discussed with: Hospitalist Lab Data [facility] Lab Attestation statement: I reviewed the patient's lab results. 12/08/22 11:57 12/08/22 11:57 Labs: Lab Results 12/08/22 12/08/22 12/08/22 Range/Units 11:56 11:57 11:57 WBC 14.1 H (4.8-10.8) X10*3/uL RBC 5.67 (4.60-5.80) X10*6/uL Hgb 16.4 (14.0-18.0) g/dl Hct 48.8 (42.0-52.0) % MCV 86.1 (80.0-98.0) fL MCH 28.9 (27.0-33.0) pg MCHC 33.6 (31.0-36.0) g/dl RDW 13.2 (11.0-16.0) % Plt Count 327 (160-400) X10*3/uL MPV 8.6 L (9.4-12.4) fL Immature Gran % (Auto) 0.6 H (0.0-0.4) % Neut % (Auto) 77.8 H (45-73) % Lymph % (Auto) 14.2 L (20-40) % [place] % (Auto) 6.8 (2-11) % Eos % (Auto) 0.1 (0-4) % Baso % (Auto) 0.5 (0-2) % Lymph # (Auto) 2.0 (1.2-4.9) X10*3/uL [place] # (Auto) 1.0 (0.1-1.2) X10*3/uL Eos # (Auto) 0.0 (0.0-0.4) X10*3/uL Baso # (Auto) 0.1 (0.0-0.2) X10*3/uL Abs Immat Gran (auto) 0.08 H (0.00-0.03) X10*3/uL Absolute Neuts (auto) 10.9 H (2.0-8.3) x10*3/uL Absolute Nucleated RBC 0.000 (0.0-0.012) X10*3/uL Nucleated RBC % (auto) 0.0 (0.0-0.2) /100WBC PT 15.0 H (10.0-13.1) SEC INR 1.3 H (0.9-1.1) APTT 32.7 (26.0-36.4) SEC Sodium (135-145) mmol/L Potassium (3.3-5.1) mmol/L Chloride (96-108) mmol/L Carbon Dioxide (22-29) mmol/L Anion Gap (12-20) BUN (9-16) mg/dL Creatinine (0.5-1.4) mg/dL Estim Creat Clear Calc Estimated GFR Random Glucose (60-115) mg/dL Lactic Acid (0.5-2.0) mmol/L Calcium (8.4-10.2) mg/dL Total Bilirubin (0.0-1.0) mg/dL Direct Bilirubin (0.0-0.5) mg/dL AST (5-37) U/L ALT (0-40) U/L Alkaline Phosphatase (39-117) U/L Total Protein (6.5-8.0) g/dL Albumin (3.5-5.0) g/dL COVID-19 ([facility]) Negative (Negative) COVID-19 Clin Com See Note 12/08/22 12/08/22 Range/Units 11:57 11:57 WBC (4.8-10.8) X10*3/uL RBC (4.60-5.80) X10*6/uL Hgb (14.0-18.0) g/dl Hct (42.0-52.0) % MCV (80.0-98.0) fL MCH (27.0-33.0) pg MCHC (31.0-36.0) g/dl RDW (11.0-16.0) % Plt Count (160-400) X10*3/uL MPV (9.4-12.4) fL Immature Gran % (Auto) (0.0-0.4) % Neut % (Auto) (45-73) % Lymph % (Auto) (20-40) % [place] % (Auto) (2-11) % Eos % (Auto) (0-4) % Baso % (Auto) (0-2) % Lymph # (Auto) (1.2-4.9) X10*3/uL [place] # (Auto) (0.1-1.2) X10*3/uL Eos # (Auto) (0.0-0.4) X10*3/uL Baso # (Auto) (0.0-0.2) X10*3/uL Abs Immat Gran (auto) (0.00-0.03) X10*3/uL Absolute Neuts (auto) (2.0-8.3) x10*3/uL Absolute Nucleated RBC (0.0-0.012) X10*3/uL Nucleated RBC % (auto) (0.0-0.2) /100WBC PT (10.0-13.1) SEC INR (0.9-1.1) APTT (26.0-36.4) SEC Sodium 139 (135-145) mmol/L Potassium 4.2 (3.3-5.1) mmol/L Chloride 108 (96-108) mmol/L Carbon Dioxide 22 (22-29) mmol/L Anion Gap 13 (12-20) BUN 9 (9-16) mg/dL Creatinine 0.85 (0.5-1.4) mg/dL Estim Creat Clear Calc 122.3 Estimated GFR > 60 Random Glucose 93 (60-115) mg/dL Lactic Acid 1.0 (0.5-2.0) mmol/L Calcium 8.7 (8.4-10.2) mg/dL Total Bilirubin 0.6 (0.0-1.0) mg/dL Direct Bilirubin 0.2 (0.0-0.5) mg/dL AST 15 (5-37) U/L ALT 20 (0-40) U/L Alkaline Phosphatase 54 (39-117) U/L Total Protein 6.6 (6.5-8.0) g/dL Albumin 3.8 (3.5-5.0) g/dL COVID-19 ([facility]) (Negative) COVID-19 Clin Com Independent Interpretation I performed an independent interpretation of an: Plain X-Ray Radiology Impression Discussion of test interpretation with radiology: I have reviewed the radiologist's reading. External Record Review External record reviewed: Inpatient record (Staph aureus bacteremia seen in June 24, 2022 hospital discharge) Tests considered The following testing was considered but not selected: MRI, bone scan Prescription Management I considered prescription management with: Pain Medication and Antibiotic Chronic Conditions Patient?s care impacted by: Diabetes Discharge Plan Discharge Clinical Impression: 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, Osteomyelitis Patient Disposition: Admitted As Inpatient
[2022-12-08 12:10] LABS: Basophils Absolute Auto 0.1 X10*3/uL (0.0-0.2); Basophils Percent Auto 0.5 % (0-2); Eosinophils Percent Auto 0.1 % (0-4); Hematocrit 48.8 % (42.0-52.0); Hemoglobin 16.4 g/dl (14.0-18.0); Imm Gran Abs Auto 0.08 X10*3/uL (0.00-0.03); Imm Gran Pct Auto 0.6 % (0.0-0.4); Lymphocytes Percent Auto 14.2 % (20-40); Mean Corpuscular HGB Conc 33.6 g/dl (31.0-36.0); Mean Corpuscular Hemoglobin 28.9 pg (27.0-33.0); Mean Corpuscular Volume 86.1 fL (80.0-98.0); Mean Platelet Volume 8.6 fL (9.4-12.4); Monocytes Percent Auto 6.8 % (2-11); Neutrophils Absolute Auto 10.9 x10*3/uL (2.0-8.3); Neutrophils Percent Auto 77.8 % (45-73); Platelet Count 327 X10*3/uL (160-400); Red Blood Count 5.67 X10*6/uL (4.60-5.80); Red Cell Distribution Width 13.2 % (11.0-16.0); White Blood Count 14.1 X10*3/uL (4.8-10.8)
[2022-12-08 12:17] LABS: INTERNATIONAL NORM RATIO 1.3 (0.9-1.1)
[2022-12-08 12:20] LABS: Partial Thromboplastin Time 32.7 SEC (26.0-36.4)
[2022-12-08 12:21] LABS: COVID-19 Test Negative (Negative); IDNOW Serial# 16C4AD1C
[2022-12-08 12:28] LABS: Alanine Aminotransferase 20 U/L (0-40); Albumin Level 3.8 g/dL (3.5-5.0); Alkaline Phosphatase 54 U/L (39-117); Anion Gap 13 (12-20); Aspartate Amino Transferase 15 U/L (5-37); Bilirubin Direct 0.2 mg/dL (0.0-0.5); Bilirubin Total 0.6 mg/dL (0.0-1.0); Blood Urea Nitrogen 9 mg/dL (9-16); Calcium 8.7 mg/dL (8.4-10.2); Carbon Dioxide 22 mmol/L (22-29); Chloride 108 mmol/L (96-108); Creatinine Clr Calc Pharmacy 122.3; Estimated Glomerular Filt Rate > 60; Glucose Random 93 mg/dL (60-115); Potassium 4.2 mmol/L (3.3-5.1); Sodium 139 mmol/L (135-145); Total Protein 6.6 g/dL (6.5-8.0)
[2022-12-08] MEDS: Silver Sulfadiazine 1 % Cream 20 GM TUBE 1 APPL TOPICAL (12:38)
--- NOTE | 2022-12-08 12:43 | PC.NURSE ---
Patient reporting increased anxiety stating I have told everyone I need something for anxiety. Patient told there were no orders get for anxiety medication. Patient responding with get me something now, or shit is going to get ugly. made aware.
[2022-12-08 12:47] LABS: C Reactive Protein 7.83 mg/dL (< or = 0.50)
--- NOTE | 2022-12-08 12:51 | P.HPHOSP_ITS ---
History of Present Illness Date of Service: 12/08/22 Attending physician on admission: Behzad Madrid Chief Complaint: Redness, swelling, pain of fifth left toe Pt is a 47-year-old male with a PMH significant for?diabetes, diabetic foot ulcers, history of osteomyelitis with multiple toe amputations, anxiety HTN, HLD, and PTSD who presents to the ED with?increased redness and swelling of his left 5th toe. Patient had the 3rd and 4th digits of his left toe amputated on 10/11/2022, wound VAC placed on area on an off over the ensuing month. One week ago pt noticed redness and warmth of left 5th digit. Was evaluated at [facility] and treated with doxycycline to little effect. Redness, swelling, pain continue to increase, went to wound care clinic this morning. Seen by Dr. Green who sent him to the ED for admission to the hospital. Patient denies fever, chills, nausea, vomiting. No night sweats. Denies chest pain/pressure, palpitations. No shortness of breath. Denies abdominal pain. Patient notes he is feeling much more anxious than normal, which tends to occur in hospital settings with him. In the ED patient was afebrile, slightly hypotensive 98/54. Labs were significant for leukocytosis of 14.1, ESR pending, C reactive protein 7.3. CXR showed increased swelling and subcutaneous air in the 5th digit and increased limb disease in the distal head of the 5th metatarsal and distal head of the 4th metatarsal, suggestive of osteomyelitis. Pt was treated with vanco and cefepime. Pt will be admitted to the hospital for treatment of further evaluation of osteomyelitis of the 5th left toe secondary to chronic diabetic foot ulcer. Review of Systems Review of Systems: Redness, swelling, pain of 5th toe of left foot Denies fever, chills, nausea, vomiting No night sweats Denies chest pain/pressure, palpitations No shortness of his breath Yes all other systems are reviewed and are negative [facility] Medical History Acidosis, lactic Anxiety Bacterial infection due to Streptococcus, group C Cellulitis Diabetes type 2, controlled 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 GERD (gastroesophageal reflux disease) High cholesterol HTN (hypertension) Marijuana smoker MRSA (methicillin resistant Staphylococcus aureus) Posttraumatic stress disorder Right foot infection Staphylococcus aureus bacteremia Surgical History History of incision and drainage History of laparoscopic cholecystectomy History of partial amputation of toe (10/11/22) Social History Household Members: None Housing: House Alcohol intake: never Patient Tobacco Use Status: Current everyday Tobacco user Tobacco use type: Cigarette Cigarette Packs Per Day: 0.5 Cigarettes Per Day: 10.0 Years Smoked: 20 Smoked in Last 30 Days: No Second Hand Smoke Exposure: No Use of substances other than those prescribed or required for medical reasons: No Substance Use Type: Marijuana Any prior treatment program specific to substance use: No Advance Directives: No Advance Directives Information Provided: Yes service: No Current occupational status: disabled Meds Allergies Allergy/AdvReac Type Severity Reaction Status Date / Time amoxicillin [AMOXICILLIN] Allergy Severe ANAPHYLAXIS Verified 10/20/22 09:31 oxycodone [From Tylox] Allergy Intermediate Itching Verified 10/20/22 09:31 hydrocodone [HYDROCODONE] Allergy Unknown UNKNOWN Verified 10/20/22 09:31 From TYLOX Allergy Intermediate ITCHING Uncoded 10/20/22 09:31 Active Medications: Current Medications Vancomycin HCl (Vancomycin/Ns) 2,000 mg in 520 mls @ 260 mls/hr IV ONCE ONE Stop: 12/08/22 13:59 Last Admin: 12/08/22 12:38 Dose: 260 mls/hr Pharmacy Consult (Consult Rx Perform Med Rec) 1 each MISCELLANE ONCE PRN PRN Reason: Consult order Home Medications Medication Instructions Recorded Confirmed Last Taken Type cholecalciferol (vitamin D3) 50 50 mcg PO DAILY 11/04/21 11/29/22 Unknown History mcg (2,000 unit) capsule hydroxyzine HCl 25 mg tablet 25 mg PO QID PRN Anxiety 09/14/22 11/29/22 Unknown History gabapentin 100 mg capsule 100 mg PO TID 10/06/22 11/29/22 Unknown History lactobacillus combination no.4 3 3,000 mmu cells PO DAILY 10/06/22 11/29/22 Unknown History billion cell capsule (Probiotic) metformin 500 mg tablet 500 mg PO BID 10/06/22 11/29/22 Unknown History ascorbic acid (vitamin C) 500 mg 500 mg PO DAILY 11/29/22 11/29/22 Unknown History tablet dulaglutide 1.5 mg/0.5 mL 1.5 mg subcut QWEEK 11/29/22 11/29/22 Unknown History subcutaneous pen injector ([facility]) glipizide 5 mg tablet 10 mg PO DAILY 11/29/22 11/29/22 Unknown History Physical Exam Vital Signs and Narrative: Vital Signs: Last Vital Signs Temp 98.6 F 12/08/22 11:03 Pulse 90 12/08/22 11:03 Resp 18 12/08/22 11:03 BP 98/54 L 12/08/22 11:03 Pulse Ox 100 12/08/22 11:03 O2 Del Method 12/08/22 11:03 BMI result Body Mass Index 29.7 Constitutional: Alert, in no acute distress. Seems anxious. Mental Status: Oriented to person, place and time. Eyes: Pupils are equal, round, and reactive to light. Ear, Nose, and Throat: Oropharynx clear, mucous membranes moist. Ears and nose without deformities. Trachea midline. Respiratory: Clear to auscultation bilaterally. No wheezing, rales, or rhonchi. Cardiovascular: S1, S2 regular. No murmurs, rubs, or gallops. Gastrointestinal: Abdomen soft, non-tender, non-distended. Normal bowel sounds. Neurologic: Cranial nerves II-XII are grossly intact bilaterally. No focal neurological deficits. Moves all extremities spontaneously. Extremities: Diffuse swelling and erythema of 5th digit of left foot. Chronic open wound on lateral aspect of left foot. Surgical site of amputation of 3rd and 4th digits appears clean without erythema or discharge. As pictured below. Psychiatric: Appears slightly depressed and anxious about his medical and familial situation. Results Labs 12/08/22 11:57 12/08/22 11:57 Labs: Laboratory Results - last 24 hr 12/08/22 12/08/22 12/08/22 11:56 11:57 11:57 MCV 86.1 MCH 28.9 MCHC 33.6 RDW 13.2 Plt Count 327 MPV 8.6 L Immature Gran % (Auto) 0.6 H Neut % (Auto) 77.8 H Lymph % (Auto) 14.2 L [place] % (Auto) 6.8 Eos % (Auto) 0.1 Baso % (Auto) 0.5 Lymph # (Auto) 2.0 [place] # (Auto) 1.0 Eos # (Auto) 0.0 Baso # (Auto) 0.1 Abs Immat Gran (auto) 0.08 H Absolute Neuts (auto) 10.9 H Absolute Nucleated RBC 0.000 Nucleated RBC % (auto) 0.0 PT 15.0 H INR 1.3 H APTT 32.7 Anion Gap Estim Creat Clear Calc Estimated GFR Random Glucose Lactic Acid Calcium Total Bilirubin Direct Bilirubin AST ALT Alkaline Phosphatase C-Reactive Protein Total Protein Albumin COVID-19 ([facility]) Negative COVID-19 Clin Com See Note 12/08/22 12/08/22 11:57 11:57 MCV MCH MCHC RDW Plt Count MPV Immature Gran % (Auto) Neut % (Auto) Lymph % (Auto) [place] % (Auto) Eos % (Auto) Baso % (Auto) Lymph # (Auto) [place] # (Auto) Eos # (Auto) Baso # (Auto) Abs Immat Gran (auto) Absolute Neuts (auto) Absolute Nucleated RBC Nucleated RBC % (auto) PT INR APTT Anion Gap 13 Estim Creat Clear Calc 122.3 Estimated GFR > 60 Random Glucose 93 Lactic Acid 1.0 Calcium 8.7 Total Bilirubin 0.6 Direct Bilirubin 0.2 AST 15 ALT 20 Alkaline Phosphatase 54 C-Reactive Protein 7.83 H Total Protein 6.6 Albumin 3.8 COVID-19 ([facility]) COVID-19 Clin Com Assessment and Plan (1) 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: Status: Acute (2) Osteomyelitis: Status: Acute Plan Pt is a 47-year-old male with a PMH significant for?diabetes, diabetic foot ulcers, history of osteomyelitis with multiple toe amputations, anxiety HTN, HLD, and PTSD who presents to the ED with?increased redness and swelling of his left 5th toe. Pt will be admitted to the hospital for treatment of further evaluation of osteomyelitis of the 5th left toe secondary to chronic diabetic foot ulcer. Osteomyelitis of 5th left toe Likely secondary to chronic diabetic foot ulcer Leukocytosis of 14.1, CRP elevated at 7.3, ESR pending X-ray suggestive osteomyelitis Failed outpatient abx therapy on doxycycline IV abx: vanco and cefepime (pt allergic to penicillins) Follow cultures Infectious disease consult General surgery consult, with surgery likely to be scheduled next week Anxiety Patient feeling quite anxious and agitated Ativan 0.5 mg q6 p.r.n. Hold hydroxyzine Non insulin-dependent diabetes Hold metformin SSI Pt will be admitted to the hospital for treatment of further evaluation of osteomyelitis of the 5th left toe secondary to chronic diabetic foot ulcer. Time Spent With Patient Time: Total time managing care of this patient today ____ minutes. Quality Stroke Does the patient have a stroke diagnosis?: No VTE Prior VTE?: No VTE Risk Level:: Medical - moderate - high VTE Device Contraindication: Treatment Not Indicated VTE Drug Contraindication: N/A - Med Ordered
--- NOTE | 2022-12-08 13:23 | P.CONGS_ITS ---
History of Present Illness Consult details Consult date: 12/08/22 Requesting physician: Teri Real Narrative: 47-year-old male patient with a past medical history of diabetes mellitus type 2 and previous toe amputations including the left 3rd and 4th toe performed in October 2022, now presenting with infection of the left 5th toe. [facility] and was seen by Dr. Green earlier today and sent to the emergency department for admission. He was previously evaluated by [facility] and placed on antibiotics without significant improvement. He knows increased redness and swelling of the little toe with tenderness to palpation. He is admitted to the hospitalist service and surgical consultation requested for possible debridement or amputation. He denies fever, chills, night sweats or other associated systemic symptoms. Review of Systems Review of Systems: Yes all other systems are reviewed and are negative Constitutional: Constitutional: Denies chills, Denies fever(s), Denies headach e(s), Denies poor appetite and Denies weakness ENT: Denies headache(s) Cardiovascular: Cardiovascular: Denies chest pain, Denies irregular heart rhythm, Denies palpitations and Denies dyspnea Respiratory: Respiratory: Denies cough, Denies excessive phlegm production and Denies dyspnea Gastrointestinal: Gastrointestinal: Denies abdominal pain, Denies bloating, Denies change in bowel habits, Denies constipation, Denies heartburn, Denies diarrhea, Denies nausea and Denies vomiting Genitourinary: Genitourinary: Denies difficulty urinating and Denies urinary frequency Musculoskeletal: Musculoskeletal: Denies back pain, Denies muscle weakness and Reports numbness Integumentary/Breasts: Skin/Breast: Denies changing lesions and Denies unusual bruising Neurologic: Denies headache(s), Reports numbness, Denies paresthesias and Denies weakness Psychiatric: Psychiatric: Reports anxiety and Denies depression Endocrine: Endocrine: Denies palpitations Hematologic/Lymphatic: Hematologic/Lymphatic: Denies lymphadenopathy PMFSH Past Medical History Medical History Acidosis, lactic Anxiety Bacterial infection due to Streptococcus, group C Cellulitis Diabetes type 2, controlled 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 GERD (gastroesophageal reflux disease) High cholesterol HTN (hypertension) Marijuana smoker MRSA (methicillin resistant Staphylococcus aureus) Posttraumatic stress disorder Right foot infection Staphylococcus aureus bacteremia Surgical History Surgical History History of incision and drainage History of laparoscopic cholecystectomy History of partial amputation of toe (10/11/22) Social History Social History Household Members: None Housing: House Alcohol intake: never Patient Tobacco Use Status: Current everyday Tobacco user Tobacco use type: Cigarette Cigarette Packs Per Day: 0.5 Cigarettes Per Day: 10.0 Years Smoked: 20 Second Hand Smoke Exposure: No Substance Use Type: Marijuana Advance Directives: No Advance Directives Information Provided: Yes service: No Current occupational status: disabled Meds Allergies Allergy/AdvReac Type Severity Reaction Status Date / Time amoxicillin [AMOXICILLIN] Allergy Severe ANAPHYLAXIS Verified 10/20/22 09:31 oxycodone [From Tylox] Allergy Intermediate Itching Verified 10/20/22 09:31 hydrocodone [HYDROCODONE] Allergy Unknown UNKNOWN Verified 10/20/22 09:31 From TYLOX Allergy Intermediate ITCHING Uncoded 10/20/22 09:31 Active Medications: Current Medications Vancomycin HCl (Vancomycin/Ns) 2,000 mg in 520 mls @ 260 mls/hr IV ONCE ONE Stop: 12/08/22 13:59 Last Admin: 12/08/22 12:38 Dose: 260 mls/hr Pharmacy Consult (Consult Rx Perform Med Rec) 1 each MISCELLANE ONCE PRN PRN Reason: Consult order Home Medications Medication Instructions Recorded Confirmed Last Taken Type cholecalciferol (vitamin D3) 50 50 mcg PO DAILY 11/04/21 11/29/22 Unknown Histo ry mcg (2,000 unit) capsule hydroxyzine HCl 25 mg tablet 25 mg PO QID PRN Anxiety 09/14/22 11/29/22 Unknown History gabapentin 100 mg capsule 100 mg PO TID 10/06/22 11/29/22 Unknown History lactobacillus combination no.4 3 3,000 mmu cells PO DAILY 10/06/22 11/29/22 Unknown History billion cell capsule (Probiotic) metformin 500 mg tablet 500 mg PO BID 10/06/22 11/29/22 Unknown History ascorbic acid (vitamin C) 500 mg 500 mg PO DAILY 11/29/22 11/29/22 Unknown History tablet dulaglutide 1.5 mg/0.5 mL 1.5 mg subcut QWEEK 11/29/22 11/29/22 Unknown History [facility] glipizide 5 mg tablet 10 mg PO DAILY 11/29/22 11/29/22 Unknown History Physical Exam Vital Signs: Vital Signs: Last Vital Signs Temp 98.6 F 12/08/22 11:03 Pulse 90 12/08/22 11:03 Resp 18 12/08/22 11:03 BP 98/54 L 12/08/22 11:03 Pulse Ox 100 12/08/22 11:03 O2 Del Method 12/08/22 11:03 BMI result Body Mass Index 29.7 Const: General: cooperative and no acute distress Nutritional Appearance: well nourished Orientation/consciousness: patient oriented x3 Limitations: no limitations HEENT: Head: Yes normocephalic and Yes atraumatic Ears: hearing grossly normal bilaterally Resp: Effort & Inspection: normal respiratory effort, no audible wheezes, no cough and no respiratory distress Cardio: Jugular venous distension: no JVD GI: Inspection: Yes normal to inspection Skin: Other: Warm, dry, no rash Neuro: General: patient oriented x3 Extrem: Other: Left 5th toe with diffuse swelling, erythema and tenderness with an open wound in the lateral aspect. Previous 3rd and 4th toe amputation site is clean without apparent open wound. Results Labs 12/08/22 11:57 12/08/22 11:57 Labs: Abnormal lab results 12/08/22 12/08/22 12/08/22 Range/Units 11:57 11:57 11:57 WBC 14.1 H (4.8-10.8) X10*3/uL MPV 8.6 L (9.4-12.4) fL Immature Gran % (Auto) 0.6 H (0.0-0.4) % Neut % (Auto) 77.8 H (45-73) % Lymph % (Auto) 14.2 L (20-40) % Abs Immat Gran (auto) 0.08 H (0.00-0.03) X10*3/uL Absolute Neuts (auto) 10.9 H (2.0-8.3) x10*3/uL PT 15.0 H (10.0-13.1) SEC INR 1.3 H (0.9-1.1) C-Reactive Protein 7.83 H (< or = 0.50) mg/dL Short CBC 12/08/22 Range/Units 11:57 WBC 14.1 H (4.8-10.8) X10*3/uL Hgb 16.4 (14.0-18.0) g/dl Hct 48.8 (42.0-52.0) % Plt Count 327 (160-400) X10*3/uL BMP 12/08/22 11:57 Sodium 139 Potassium 4.2 Chloride 108 Carbon Dioxide 22 BUN 9 Creatinine 0.85 Calcium 8.7 Liver Function 12/08/22 Range/Units 11:57 Total Bilirubin 0.6 (0.0-1.0) mg/dL Direct Bilirubin 0.2 (0.0-0.5) mg/dL AST 15 (5-37) U/L ALT 20 (0-40) U/L Alkaline Phosphatase 54 (39-117) U/L Albumin 3.8 (3.5-5.0) g/dL All other labs normal. Imaging Additional studies: EXAMINATION: XR FOOT, LEFT CLINICAL INFORMATION: Left foot wound with swelling. COMPARISON: Left foot radiographs dated 11/29/2022.? TECHNIQUE: AP, lateral, and oblique views of the left foot. FINDINGS: Moderate swelling and subcutaneous air are seen in the fifth digit, increased from the previous study. The underlying phalanges are intact. Increased lucencies are seen in the distal head of the fifth metatarsal. Lucency is also seen in the distal head of the fourth metatarsal. Post surgical changes are seen in the third digit with resection of the third metatarsal head. The distal osseous margin is intact. XR/XR foot LT min 3V IMPRESSION: 1.? Moderate swelling and subcutaneous air in the fifth digit, increased from the previous study. 2.? Increased lucencies in the distal head of the fifth metatarsal and distal head of the fourth metatarsal are nonspecific. Osteomyelitis cannot be excluded. ? Dictated By: Jayant Sigala MD Signed By: <Electronically signed by Jayant Sigala MD in OV> Assessment and Plan (1) Osteomyelitis: Status: Acute Plan 47-year-old male patient with diabetes mellitus type 2 and previous toe amputations for osteomyelitis now presenting with probable osteomyelitis involving the 5th toe left foot. Patient is admitted for IV antibiotics and wound management. I discussed possible amputation with the patient today. He is currently not interested in undergoing surgery and would like to try antibiotics further. He understands that if this does not improve, amputation would be the best option. Will continue to monitor during his hospitalization. Time Spent With Patient Time: Total time managing care of this patient today ____ minutes. Procedures Date of Service Date of Service: 12/08/22
--- NOTE | 2022-12-08 14:21 | PHA.PROG ---
Admission Date/Time: December 08, 2022 14:00 Indication: BONE AND JOINT Weight in k kg Adjusted body weight in Kg: [place] body weight in Kg: Obesity Dosing Indication % IBW: Serum Creatinine - Last 168 Hours 12/08/22 11:57 Creatinine 0.85 Estimated CrCl and GFR - Last 168 Hours 12/08/22 11:57 Estim Creat Clear Calc 122.3 Estimated GFR > 60 Vancomycin Loading Dose: 2000 MG Current Vancomycin Dosing Regimen: 1250MG Q12H Vancomycin Monitoring using AUC goal of 400 - 600 range with trough as surrogate marker: AUC 488, TROUGH 14.9 Date and Time for next Vancomycin Level to be drawn: 12/09 @2100 Pharmacist Comments on Vancomycin Plan: Vancomycin dosing will take advantage of [employer] as a clinical decision support tool that uses Bayesian modeling to calculate individual patient's pharmacokinetic parameters and forecast the patient's drug concentration time course with the target goal AUC 24 range of 400 - 600 mg/L/hr.
[2022-12-08 15:19] VITALS: BP 125/77; PULSE 89; RESP 16; TEMP 36.3; O2SAT 97
--- NOTE | 2022-12-08 15:51 | PHA.MEDREC ---
Pharmacy Consult ? Medication Reconciliation Pharmacy has completed the medication reconciliation. Patient was extremely aggressive and didn't want to discuss medications stating he's already done this with numerous other people. He insisted he was supposed to get something for anxiety and I told him part of the process was talking to me about his medications. He reluctantly went over his medication list and repeatedly expressed frustration over the lack of wifi and yelled and swore a lot at this personal lines underwriter about how we still hadn't brought him anxiety medication yet. I'm certain about most of the med rec being correct, but he states that some meds are only taken when he has the money for it and wouldn't give me more information on that.
[2022-12-08] MEDS: LORazepam 2 MG/ML VIAL 0.5 MG IVPUSH (16:12)
[2022-12-08] MEDS: Enoxaparin Sodium 40 MG/0.4 ML SYRINGE SUBCUT (16:15)
[2022-12-08] MEDS: 0.9 % Sodium Chloride Flush 3 ML SYRINGE IVFLUSH (16:16)
[2022-12-08 16:43] LABS: Glucose, Whole Blood 125 mg/dL (60-115)
[2022-12-08] MEDS: Nicotine 21 MG PATCH.TD24 TRANSDERMA (16:48)
[2022-12-08] MEDS: hydrOXYzine HCL 25 MG TABLET PO (16:49)
[2022-12-08 19:27] VITALS: BP 128/73; PULSE 80; RESP 16; TEMP 36.1; O2SAT 97
[2022-12-08 20:18] LABS: Glucose, Whole Blood 147 mg/dL (60-115)
[2022-12-08] MEDS: Gabapentin 100 MG CAPSULE PO (20:29)
--- NOTE | 2022-12-08 21:40 | PC.NURSE ---
Patient arrived to this unit at 1500 very anxious,yelling ,using f words and complaining that his needs are not met.New IV inserted since IV vancomycin was not infused ,patient unable to keep arm straight,original IV is in AC area.Lorazepam was administered as requested for anxiety,MD was notified ,Atarax was also administered for anxiety with good effect.Nicotine patch order obtained and applied ,patient has a drsg on his right foot but refused to have it removed so RN unable to evaluate .patient much more calm now,resting quietly .
[2022-12-08 23:36] VITALS: BP 110/69; PULSE 86; RESP 16; TEMP 36.3; O2SAT 98
[2022-12-09] MEDS: cefEPime HCl 2 GM in 0.9 % Sodium Chloride 50 ML IV ×3 (00:13→22:42)
[2022-12-09] MEDS: 0.9 % Sodium Chloride Flush 3 ML SYRINGE IVFLUSH ×4 (00:13→23:17)
[2022-12-09 03:16] VITALS: BP 102/61; PULSE 87; RESP 16; TEMP 36.2; O2SAT 95
[2022-12-09] MEDS: vancomycin HCL 1,250 MG in 0.9 % Sodium Chloride 250 ML 166.67 MG IV ×2 (06:19→17:26)
[2022-12-09 07:07] VITALS: BP 121/69; PULSE 82; RESP 16; TEMP 36.6; O2SAT 98
[2022-12-09 07:31] LABS: Glucose, Whole Blood 99 mg/dL (60-115)
[2022-12-09] MEDS: Nicotine 21 MG PATCH.TD24 TRANSDERMA (07:48)
[2022-12-09] MEDS: Cholecalciferol (Vitamin D3) 25 MCG TABLET 50 MCG PO (07:49)
[2022-12-09] MEDS: Gabapentin 100 MG CAPSULE PO ×3 (07:49→21:08)
[2022-12-09] MEDS: Ascorbic Acid 500 MG TABLET PO (07:50)
[2022-12-09] MEDS: Cyanocobalamin (Vitamin B-12) 100 MCG TABLET 50 MCG PO (07:50)
--- NOTE | 2022-12-09 08:58 | MHC.CM.PN ---
PATIENT LIVES ALONE. HIS DAUGHTER (DOMINICK) WILL BE 18 IN JANUARY SO HE DOES NOT YET HAVE A HCP. HE REPORTS NOT HAVING ANYBODY TO ASSIGN AN AGENT [facility] VISITS 3X/WEEK WALKER IN HOME. PATIENT ALSO RECEIVES MENTAL HEALTH SERVICES THROUGH [facility]. HE USES [facility]. WHEN ASKED WHAT HE FEELS IS THE PREFERRED DC PLAN, PATIENT STATES THAT HE THINKS HE IS GOING TO HAVE AN AMPUTATION PRIOR TO DC. REFERAL TO COUNT INCLUDES THE [facility] TO FOLLOW FOR RESUMPTION OF SERVICES
--- NOTE | 2022-12-09 09:36 | P.PNGS_ITS ---
Subjective Subjective Date of Service: 12/09/22 Patient reports: no new complaints and feels better Interval history: Patient is seen in coverage Patient reports he is trying to get his head in order regarding surgery. He notes he feels a little better and certainly denies any chest pain, difficulty breathing, shortness of breath or other new complaints. He notes continued foot pain Physical Exam Vital Signs: Vital Signs: Last Vital Signs Temp 97.8 F 12/09/22 07:07 Pulse 82 12/09/22 07:07 Resp 16 12/09/22 07:07 BP 121/69 12/09/22 07:07 Pulse Ox 98 12/09/22 07:07 O2 Del Method 12/09/22 07:07 BMI result Body Mass Index 29.7 On exam he is nontoxic He is in no acute distress Left foot dressing is clean, dry and intact with no drainage. No malodorous drainage is overly apparent Objective Data Active Medications Acetaminophen (Acetaminophen 325 Mg Tablet) 650 mg PO Q6H PRN PRN Reason: Pain, Mild (Pain Scale 1-3) Ascorbic Acid (Ascorbic Acid 500 Mg Tablet) 500 mg PO DAILY [facility] Last Admin: 12/09/22 07:50 Dose: 500 mg Documented By: EVERETTE Cyanocobalamin (Cyanocobalamin (Vitamin B-12) 100 Mcg Tablet) 50 mcg PO DAILY [facility] Last Admin: 12/09/22 07:50 Dose: 50 mcg Documented By: EVERETTE Docusate Sodium (Docusate Sodium 100 Mg Capsule) 100 mg PO DAILY PRN PRN Reason: Constipation Enoxaparin Sodium (Enoxaparin Sodium 40 Mg/0.4 Ml Syringe) 40 mg SUBCUT Q24H [facility] Last Admin: 12/08/22 16:15 Dose: 40 mg Documented By: ANA ROSA Gabapentin (Gabapentin 100 Mg Capsule) 100 mg PO TID [facility] Last Admin: 12/09/22 07:49 Dose: 100 mg Documented By: EVERETTE Glucose (Glucose Gel 15 Gm Gel..Gram.) 15 gm PO Q15M PRN; Protocol PRN Reason: per Hypoglycemia Standing Ord. Hydroxyzine HCl (Hydroxyzine Hcl 25 Mg Tablet) 25 mg PO QID PRN PRN Reason: Anxiety Last Admin: 12/08/22 16:49 Dose: 25 mg Documented By: ANA ROSA Cefepime HCl 2 gm/ Sodium (Chloride) 50 mls @ 100 mls/hr IV Q12H [facility] Last Infusion: 12/09/22 00:43 Dose: 0 mls/hr Documented By: BRENNAN Dextrose (D10) 250 mls @ 750 mls/hr IV Q15M PRN; Protocol PRN Reason: per Hypoglycemia Standing Ord. Vancomycin HCl 1,250 mg/ (Sodium Chloride) 250 mls @ 166.667 mls/hr IV Q12H [facility] Last Infusion: 12/09/22 07:55 Dose: 166.67 mls/hr Documented By: EVERETTE Insulin Human Lispro (Insulin Lispro 100 Unit/Ml 3 Ml Vial) 0 unit SUBCUT QIDACHS [facility]; Protocol Last Admin: 12/09/22 07:13 Dose: Not Given Documented By: EVERETTE Non-Admin Reason: No Insulin Coverage Lorazepam (Lorazepam 0.5 Mg Tablet) 0.5 mg PO Q4H PRN PRN Reason: Anxiety Nicotine (Nicotine 21 Mg Patch.Td24) 21 mg TRANSDERMA DAILY [facility] Last Admin: 12/09/22 07:48 Dose: 21 mg Documented By: EVERETTE Ondansetron HCl (Ondansetron Hcl 4 Mg/2 Ml Vial) 4 mg IVPUSH Q8H PRN PRN Reason: Nausea and Vomiting Pharmacy Consult (Consult Rx Perform Med Rec) 1 each MISCELLANE ONCE PRN PRN Reason: Consult order Pharmacy Consult (Consult Rx Vancomycin Dosing) 1 each MISCELLANE DAILY PRN PRN Reason: Consult order Sodium Chloride (0.9 % Sodium Chloride Flush 3 Ml Syringe) 3 ml IVFLUSH QSHIFT [facility] Last Admin: 12/09/22 07:53 Dose: 3 ml Documented By: EVERETTE Vitamin D (Cholecalciferol (Vitamin D3) 25 Mcg Tablet) 50 mcg PO DAILY [facility] Last Admin: 12/09/22 07:49 Dose: 50 mcg Documented By: EVERETTE Labs 12/08/22 11:57 12/08/22 11:57 Labs: Laboratory Results - last 24 hr 12/08/22 12/08/22 12/08/22 11:56 11:57 11:57 MCV 86.1 MCH 28.9 MCHC 33.6 RDW 13.2 Plt Count 327 MPV 8.6 L Immature Gran % (Auto) 0.6 H Neut % (Auto) 77.8 H Lymph % (Auto) 14.2 L [place] % (Auto) 6.8 Eos % (Auto) 0.1 Baso % (Auto) 0.5 Lymph # (Auto) 2.0 [place] # (Auto) 1.0 Eos # (Auto) 0.0 Baso # (Auto) 0.1 Abs Immat Gran (auto) 0.08 H Absolute Neuts (auto) 10.9 H Absolute Nucleated RBC 0.000 Nucleated RBC % (auto) 0.0 PT 15.0 H INR 1.3 H APTT 32.7 Anion Gap Estim Creat Clear Calc Estimated GFR POC Glucose Random Glucose Lactic Acid Calcium Total Bilirubin Direct Bilirubin AST ALT Alkaline Phosphatase C-Reactive Protein Total Protein Albumin COVID-19 ([facility]) Negative COVID-19 Clin Com See Note 12/08/22 12/08/22 12/08/22 11:57 11:57 16:40 MCV MCH MCHC RDW Plt Count MPV Immature Gran % (Auto) Neut % (Auto) Lymph % (Auto) [place] % (Auto) Eos % (Auto) Baso % (Auto) Lymph # (Auto) [place] # (Auto) Eos # (Auto) Baso # (Auto) Abs Immat Gran (auto) Absolute Neuts (auto) Absolute Nucleated RBC Nucleated RBC % (auto) PT INR APTT Anion Gap 13 Estim Creat Clear Calc 122.3 Estimated GFR > 60 POC Glucose 125 H Random Glucose 93 Lactic Acid 1.0 Calcium 8.7 Total Bilirubin 0.6 Direct Bilirubin 0.2 AST 15 ALT 20 Alkaline Phosphatase 54 C-Reactive Protein 7.83 H Total Protein 6.6 Albumin 3.8 COVID-19 ([facility]) COVID-19 Clin Com 12/08/22 12/09/22 20:09 07:11 MCV MCH MCHC RDW Plt Count MPV Immature Gran % (Auto) Neut % (Auto) Lymph % (Auto) [place] % (Auto) Eos % (Auto) Baso % (Auto) Lymph # (Auto) [place] # (Auto) Eos # (Auto) Baso # (Auto) Abs Immat Gran (auto) Absolute Neuts (auto) Absolute Nucleated RBC Nucleated RBC % (auto) PT INR APTT Anion Gap Estim Creat Clear Calc Estimated GFR POC Glucose 147 H 99 Random Glucose Lactic Acid Calcium Total Bilirubin Direct Bilirubin AST ALT Alkaline Phosphatase C-Reactive Protein Total Protein Albumin COVID-19 ([facility]) COVID-19 Clin Com Procedures Date of Service Date of Service: 12/09/22 Progress Note: A&P Assessment and plan (1) Osteomyelitis: Status: Acute (2) 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: Status: Acute Plan Continue present management including antibiotics. Patient processing need for additional surgery Time Spent With Patient Time: Total time managing care of this patient today ____ minutes. Quality Stroke Does the patient have a stroke diagnosis?: No VTE Prior VTE?: No VTE Risk Level:: Medical - moderate - high VTE Device Contraindication: Treatment Not Indicated VTE Drug Contraindication: N/A - Med Ordered
[2022-12-09 11:03] LABS: Creatinine Clr Calc Pharmacy 120.9; Estimated Glomerular Filt Rate > 60
--- NOTE | 2022-12-09 11:06 | HO.PM.IMPN ---
Subjective Subjective Date of Service: 12/09/22 Interval History: wants to preserve toe no fever/chills hx MSSA bacteraemia Review of Systems Review of Systems: Yes all other systems are reviewed and are negative Physical Exam Vital Signs: Vital Signs: Last Vital Signs Temp 97.8 F 12/09/22 07:07 Pulse 82 12/09/22 07:07 Resp 16 12/09/22 07:07 BP 121/69 12/09/22 07:07 Pulse Ox 98 12/09/22 07:07 O2 Del Method 12/09/22 07:07 BMI result Body Mass Index 29.7 Gen: in no acute distress HEENT: sclera anicteric, moist mucus membranes Neck: supple Lungs: clear to auscultation bilaterally Heart: regular rate and rhythm, no murmurs Abd: soft, non-tender, non-distended Ext: L 5th toe swollen/erythematous with lateral ulcer; prior 3rd + 4th toes amputated Skin: warm/well-perfused Neuro: alert and oriented x3, no focal findings Psych: appropriate affect Objective Data Active Medications Acetaminophen (Acetaminophen 325 Mg Tablet) 650 mg PO Q6H PRN PRN Reason: Pain, Mild (Pain Scale 1-3) Ascorbic Acid (Ascorbic Acid 500 Mg Tablet) 500 mg PO DAILY [facility] Last Admin: 12/09/22 07:50 Dose: 500 mg Documented By: EVERETTE Cyanocobalamin (Cyanocobalamin (Vitamin B-12) 100 Mcg Tablet) 50 mcg PO DAILY [facility] Last Admin: 12/09/22 07:50 Dose: 50 mcg Documented By: EVERETTE Docusate Sodium (Docusate Sodium 100 Mg Capsule) 100 mg PO DAILY PRN PRN Reason: Constipation Enoxaparin Sodium (Enoxaparin Sodium 40 Mg/0.4 Ml Syringe) 40 mg SUBCUT Q24H [facility] Last Admin: 12/08/22 16:15 Dose: 40 mg Documented By: ANA ROSA Gabapentin (Gabapentin 100 Mg Capsule) 100 mg PO TID [facility] Last Admin: 12/09/22 07:49 Dose: 100 mg Documented By: EVERETTE Glucose (Glucose Gel 15 Gm Gel..Gram.) 15 gm PO Q15M PRN; Protocol PRN Reason: per Hypoglycemia Standing Ord. Hydroxyzine HCl (Hydroxyzine Hcl 25 Mg Tablet) 25 mg PO QID PRN PRN Reason: Anxiety Last Admin: 12/08/22 16:49 Dose: 25 mg Documented By: ANA ROSA Cefepime HCl 2 gm/ Sodium (Chloride) 50 mls @ 100 mls/hr IV Q12H [facility] Last Infusion: 12/09/22 00:43 Dose: 0 mls/hr Documented By: JAMESK Dextrose (D10) 250 mls @ 750 mls/hr IV Q15M PRN; Protocol PRN Reason: per Hypoglycemia Standing Ord. Vancomycin HCl 1,250 mg/ (Sodium Chloride) 250 mls @ 166.667 mls/hr IV Q12H [facility] Last Infusion: 12/09/22 07:55 Dose: 166.67 mls/hr Documented By: EVERETTE Insulin Human Lispro (Insulin Lispro 100 Unit/Ml 3 Ml Vial) 0 unit SUBCUT QIDACHS [facility]; Protocol Last Admin: 12/09/22 07:13 Dose: Not Given Documented By: EEVRETTE Non-Admin Reason: No Insulin Coverage Lorazepam (Lorazepam 0.5 Mg Tablet) 0.5 mg PO Q4H PRN PRN Reason: Anxiety Nicotine (Nicotine 21 Mg Patch.Td24) 21 mg TRANSDERMA DAILY [facility] Last Admin: 12/09/22 07:48 Dose: 21 mg Documented By: EVERETTE Ondansetron HCl (Ondansetron Hcl 4 Mg/2 Ml Vial) 4 mg IVPUSH Q8H PRN PRN Reason: Nausea and Vomiting Pharmacy Consult (Consult Rx Perform Med Rec) 1 each MISCELLANE ONCE PRN PRN Reason: Consult order Pharmacy Consult (Consult Rx Vancomycin Dosing) 1 each MISCELLANE DAILY PRN PRN Reason: Consult order Sodium Chloride (0.9 % Sodium Chloride Flush 3 Ml Syringe) 3 ml IVFLUSH QSHIFT [facility] Last Admin: 12/09/22 07:53 Dose: 3 ml Documented By: EVERETTE Vitamin D (Cholecalciferol (Vitamin D3) 25 Mcg Tablet) 50 mcg PO DAILY [facility] Last Admin: 12/09/22 07:49 Dose: 50 mcg Documented By: EVERETTE Labs 12/08/22 11:57 12/09/22 09:18 Labs: Laboratory Results - last 24 hr 12/08/22 12/08/22 12/08/22 11:56 11:57 11:57 MCV 86.1 MCH 28.9 MCHC 33.6 RDW 13.2 Plt Count 327 MPV 8.6 L Immature Gran % (Auto) 0.6 H Neut % (Auto) 77.8 H Lymph % (Auto) 14.2 L Kimball % (Auto) 6.8 Eos % (Auto) 0.1 Baso % (Auto) 0.5 Lymph # (Auto) 2.0 Kimball # (Auto) 1.0 Eos # (Auto) 0.0 Baso # (Auto) 0.1 Abs Immat Gran (auto) 0.08 H Absolute Neuts (auto) 10.9 H Absolute Nucleated RBC 0.000 Nucleated RBC % (auto) 0.0 PT 15.0 H INR 1.3 H APTT 32.7 Anion Gap Estim Creat Clear Calc Estimated GFR POC Glucose Random Glucose Lactic Acid Calcium Total Bilirubin Direct Bilirubin AST ALT Alkaline Phosphatase C-Reactive Protein Total Protein Albumin COVID-19 ([facility]) Negative COVID-19 Clin Com See Note 12/08/22 12/08/22 12/08/22 11:57 11:57 16:40 MCV MCH MCHC RDW Plt Count MPV Immature Gran % (Auto) Neut % (Auto) Lymph % (Auto) Kimball % (Auto) Eos % (Auto) Baso % (Auto) Lymph # (Auto) Kimball # (Auto) Eos # (Auto) Baso # (Auto) Abs Immat Gran (auto) Absolute Neuts (auto) Absolute Nucleated RBC Nucleated RBC % (auto) PT INR APTT Anion Gap 13 Estim Creat Clear Calc 122.3 Estimated GFR > 60 POC Glucose 125 H Random Glucose 93 Lactic Acid 1.0 Calcium 8.7 Total Bilirubin 0.6 Direct Bilirubin 0.2 AST 15 ALT 20 Alkaline Phosphatase 54 C-Reactive Protein 7.83 H Total Protein 6.6 Albumin 3.8 COVID-19 ([facility]) COVID-19 Clin Com 12/08/22 12/09/22 12/09/22 20:09 07:11 09:18 MCV MCH MCHC RDW Plt Count MPV Immature Gran % (Auto) Neut % (Auto) Lymph % (Auto) Kimball % (Auto) Eos % (Auto) Baso % (Auto) Lymph # (Auto) Kimball # (Auto) Eos # (Auto) Baso # (Auto) Abs Immat Gran (auto) Absolute Neuts (auto) Absolute Nucleated RBC Nucleated RBC % (auto) PT INR APTT Anion Gap Estim Creat Clear Calc 120.9 Estimated GFR > 60 POC Glucose 147 H 99 Random Glucose Lactic Acid Calcium Total Bilirubin Direct Bilirubin AST ALT Alkaline Phosphatase C-Reactive Protein Total Protein Albumin COVID-19 ([facility]) COVID-19 Clin Com Assessment and Plan (1) Osteomyelitis: Status: Acute Assessment and Plan: d#2 47yo M with DM2 with hx ulcers, osteomyelitis + MSSA bacteremia s/p multiple toe amputations presenting with redness/swelling/ulcer of L 5th toe, admitted for osteomyelitis after failing outpt doxycycline # DM ulcer with osteomyelitis - d#2 vanco + cefepime, follow BCx, ID consultation, likely PICC line + 6 wk IV ABX as declines amputation at this point, Gen Surg consulted # anxiety - lorazepam + hydroxyzine # DM2 - correction-dose lispro # tobacco abuse - NRT # VTE ppx: LMWH # dispo: likely home with VNA eventually In my clinical judgment, the patient requires continued inpatient hospitalization for the following reasons: IV ABX Time Spent With Patient Time: Total time managing care of this patient today __40__ minutes. Quality Stroke Does the patient have a stroke diagnosis?: No VTE Prior VTE?: No VTE Risk Level:: Medical - moderate - high VTE Device Contraindication: Treatment Not Indicated VTE Drug Contraindication: N/A - Med Ordered
[2022-12-09 11:14] LABS: Glucose, Whole Blood 137 mg/dL (60-115)
[2022-12-09 11:31] LABS: Erythrocyte Sedimentation Rate 51 MM/HR (0-15)
[2022-12-09 14:52] VITALS: BP 124/73; PULSE 80; RESP 16; TEMP 36.7; O2SAT 98
[2022-12-09 15:02] LABS: Glucose, Whole Blood 192 mg/dL (60-115)
--- NOTE | 2022-12-09 15:15 | PC.NURSE ---
Patient requested to speak with a doctor,nurse offered to answer questions but patient wants to speak with a doctor,Dr. Castanon notified
[2022-12-09] MEDS: Enoxaparin Sodium 40 MG/0.4 ML SYRINGE SUBCUT (15:18)
--- NOTE | 2022-12-09 15:22 | PC.NURSE ---
Dr. Castanon is seeing patient now
[2022-12-09] MEDS: LORazepam 0.5 MG TABLET PO (15:25)
[2022-12-09 16:20] LABS: Estimated Average Glucose 137 mg/dL; Hemoglobin A1c % 6.4 %
[2022-12-09 16:26] LABS: Anion Gap 16 (12-20); Blood Urea Nitrogen 10 mg/dL (9-16); Calcium 8.8 mg/dL (8.4-10.2); Carbon Dioxide 21 mmol/L (22-29); Chloride 106 mmol/L (96-108); Creatinine Clr Calc Pharmacy 123.8; Estimated Glomerular Filt Rate > 60; Glucose Random 152 mg/dL (60-115); Potassium 4.7 mmol/L (3.3-5.1); Sodium 138 mmol/L (135-145); Vancomycin Trough 12.2 mcg/mL (10.0-20.0)
--- NOTE | 2022-12-09 17:02 | PC.NURSE ---
patient requesting to have a blood sugar checked now
[2022-12-09] MEDS: Insulin Lispro 100 UNIT/ML 3 ML VIAL SUBCUT (17:07)
[2022-12-09 17:14] LABS: Glucose, Whole Blood 198 mg/dL (60-115)
[2022-12-09 19:32] VITALS: BP 106/67; PULSE 70; RESP 18; TEMP 36.8; O2SAT 97
[2022-12-09 20:49] LABS: Glucose, Whole Blood 104 mg/dL (60-115)
--- NOTE | 2022-12-09 22:54 | P.CNID_ITS ---
History of Present Illness Data of Consult Service Date: 12/09/22 Requesting physician: Beata Dobson Primary Care Provider: Unknown Physician HPI Reason for consult: left fifth toe osteomyelitis He presents with left fifth toe redness and swelling worse over last week. He has seen Dr Green and referred to hospital. He has reddened left fifth toe. He had left 3rd and 4th toe amputation due to infection on 10/11. 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 GERD (gastroesophageal reflux disease) High cholesterol HTN (hypertension) Marijuana smoker MRSA (methicillin resistant Staphylococcus aureus) Posttraumatic stress disorder Right foot infection Staphylococcus aureus bacteremia Family History Family history: reviewed and not pertinent Surgical History Surgical History History of incision and drainage History of laparoscopic cholecystectomy History of partial amputation of toe (10/11/22) Social History Social History Household Members: None Housing: Apartment Do you presently have visiting nurse or other home services: Yes Alcohol intake: never Patient Tobacco Use Status: Current everyday Tobacco user Tobacco use type: Cigarette Cigarette Packs Per Day: 1 Cigarettes Per Day: 20.0 Years Smoked: 36 years Smoked in Last 30 Days: Yes Patient Interested in Nicotine Replacement: Yes Patient Given Instructions on How to Stop Smoking: Yes Date Education Initiated: 12/08/22 Second Hand Smoke Exposure: No Use of substances other than those prescribed or required for medical reasons: No Substance Use Type: Marijuana Substance Use Frequency: Daily Last Used Substance: Hours (ago) Currently Displaying Signs/Symptoms of Drug Intoxication Withdrawal: No Any prior treatment program specific to substance use: No Have you been hit, kicked, punched, or otherwise hurt by someone within the past year? If so, by whom?: No Do you feel safe in your current relationship?: Yes Is there a partner from a previous relationship who is making you feel unsafe now?: No Are you made to feel afraid or neglected: No Advance Directives: No Advance Directives Information Provided: Yes Do you have thoughts of harming others: None Do you have a plan to hurt others: No Plan Recently lost weight without trying: No Nutrition Risks: No Nutritional Risk service: No Current occupational status: disabled Meds Allergies Allergy/AdvReac Type Severity Reaction Status Date / Time amoxicillin [AMOXICILLIN] Allergy Severe ANAPHYLAXIS Verified 10/20/22 09:31 oxycodone [From Tylox] Allergy Intermediate Itching Verified 10/20/22 09:31 hydrocodone [HYDROCODONE] Allergy Unknown UNKNOWN Verified 10/20/22 09:31 From TYLOX Allergy Intermediate ITCHING Uncoded 10/20/22 09:31 Active Medications: Current Medications Acetaminophen (Acetaminophen 325 Mg Tablet) 650 mg PO Q6H PRN PRN Reason: Pain, Mild (Pain Scale 1-3) Ascorbic Acid (Ascorbic Acid 500 Mg Tablet) 500 mg PO DAILY [facility] Last Admin: 12/09/22 07:50 Dose: 500 mg Cyanocobalamin (Cyanocobalamin (Vitamin B-12) 100 Mcg Tablet) 50 mcg PO DAILY [facility] Last Admin: 12/09/22 07:50 Dose: 50 mcg Docusate Sodium (Docusate Sodium 100 Mg Capsule) 100 mg PO DAILY PRN PRN Reason: Constipation Enoxaparin Sodium (Enoxaparin Sodium 40 Mg/0.4 Ml Syringe) 40 mg SUBCUT Q24H [facility] Last Admin: 12/09/22 15:18 Dose: 40 mg Gabapentin (Gabapentin 100 Mg Capsule) 100 mg PO TID [facility] Last Admin: 12/09/22 21:08 Dose: 100 mg Glucose (Glucose Gel 15 Gm Gel..Gram.) 15 gm PO Q15M PRN; Protocol PRN Reason: per Hypoglycemia Standing Ord. Hydroxyzine HCl (Hydroxyzine Hcl 25 Mg Tablet) 25 mg PO QID PRN PRN Reason: Anxiety Last Admin: 12/08/22 16:49 Dose: 25 mg Cefepime HCl 2 gm/ Sodium (Chloride) 50 mls @ 100 mls/hr IV Q12H [facility] Last Admin: 12/09/22 22:42 Dose: 100 mls/hr Dextrose (D10) 250 mls @ 750 mls/hr IV Q15M PRN; Protocol PRN Reason: per Hypoglycemia Standing Ord. Vancomycin HCl 1,250 mg/ (Sodium Chloride) 250 mls @ 166.667 mls/hr IV Q12H [facility] Last Infusion: 12/09/22 19:20 Dose: Infused Insulin Human Lispro (Insulin Lispro 100 Unit/Ml 3 Ml Vial) 0 unit SUBCUT QIDACHS [facility]; Protocol Last Admin: 12/09/22 21:04 Dose: Not Given Lorazepam (Lorazepam 0.5 Mg Tablet) 0.5 mg PO Q4H PRN PRN Reason: Anxiety Last Admin: 12/09/22 15:25 Dose: 0.5 mg Nicotine (Nicotine 21 Mg Patch.Td24) 21 mg TRANSDERMA DAILY [facility] Last Admin: 12/09/22 07:48 Dose: 21 mg Ondansetron HCl (Ondansetron Hcl 4 Mg/2 Ml Vial) 4 mg IVPUSH Q8H PRN PRN Reason: Nausea and Vomiting Pharmacy Consult (Consult Rx Perform Med Rec) 1 each MISCELLANE ONCE PRN PRN Reason: Consult order Pharmacy Consult (Consult Rx Vancomycin Dosing) 1 each MISCELLANE DAILY PRN PRN Reason: Consult order Sodium Chloride (0.9 % Sodium Chloride Flush 3 Ml Syringe) 3 ml IVFLUSH QSHIFT [facility] Last Admin: 12/09/22 15:18 Dose: 3 ml Vitamin D (Cholecalciferol (Vitamin D3) 25 Mcg Tablet) 50 mcg PO DAILY [facility] Last Admin: 12/09/22 07:49 Dose: 50 mcg Home Medications Medication Instructions Recorded Confirmed Last Taken Type cholecalciferol (vitamin D3) 50 50 mcg PO DAILY 11/04/21 12/08/22 12/07/22 History mcg (2,000 unit) capsule hydroxyzine HCl 25 mg tablet 25 mg PO QID PRN Anxiety 09/14/22 12/08/22 12/07/22 History gabapentin 100 mg capsule 100 mg PO TID 10/06/22 12/08/22 12/07/22 History metformin 500 mg tablet 500 mg PO BID 10/06/22 12/08/22 12/07/22 History ascorbic acid (vitamin C) 500 mg 500 mg PO DAILY 11/29/22 12/08/22 12/07/22 History tablet dulaglutide 1.5 mg/0.5 mL 1.5 mg subcut [facility] 11/29/22 12/08/22 12/03/22 History subcutaneous pen injector (Trulicity) glipizide 5 mg tablet 10 mg PO DAILY 11/29/22 12/08/22 12/07/22 History cyanocobalamin (vitamin B-12) 50 50 mcg PO DAILY 12/08/22 12/08/22 12/07/22 History mcg tablet Physical Exam Vital Signs: Vital Signs: Last Vital Signs Temp 98.3 F 12/09/22 19:32 Pulse 70 12/09/22 19:32 Resp 18 12/09/22 19:32 BP 106/67 12/09/22 19:32 Pulse Ox 97 12/09/22 19:32 O2 Del Method 12/09/22 19:32 BMI result Body Mass Index 29.7 Const: General: cooperative HEENT: Head: Yes normal to inspection Face and sinus: Yes normal facial exam Mouth: Normal oral and palatal mucosa present Teeth and gingiva: dentition normal Eyes: General: appearance normal, both eyes and all related structures Pupils: Equal, round and reactive pupils present Resp: Effort & Inspection: normal respiratory effort Cardio: Rate: regular rate Rhythm: regular rhythm GI: Palpation (GI): Soft to palpation and nontender : General: Yes no CVA tenderness Back/Spine/Pelvis: Back: no CVA tenderness Skin: General skin exam: no rashes or lesions noted Neuro: General: moves all extremities Cranial nerves: Yes Equal, round and reactive pupils present Extrem: Other: left fifth toe redness General: Yes normal to inspection Psych: Appearance: grossly normal Results Labs 12/08/22 11:57 12/09/22 15:51 Labs: BMP 12/09/22 12/09/22 09:18 15:51 Sodium 138 Potassium 4.7 Chloride 106 Carbon Dioxide 21 L BUN 10 Creatinine 0.86 0.84 Calcium 8.8 Microbiology Microbiology Results: Microbiology 12/08/22 12:02 Blood - Venous Blood Culture - Preliminary No growth after 24 hours. 12/08/22 11:57 Blood - Venous Blood Culture - Preliminary No growth after 24 hours. Assessment and Plan (1) Osteomyelitis: Status: Acute He has possible gram negative and gram positive He has had prior third and fourth toe left amputation He has diabetes . Plan Continue Cefepime and Vancomycin cover above organisms. Definitive surgery would be most beneficial and curative especially since third and fourth toe already recently amputated and this toe may have had some predisposition to infection Time Spent With Patient Time: Total time managing care of this patient today ____ minutes.
[2022-12-09 23:17] VITALS: BP 118/72; PULSE 78; RESP 18; TEMP 36.9; O2SAT 98
[2022-12-10] VITALS (8 sets, daily range): BP systolic 112–119; BP diastolic 67–69; PULSE 75–79; RESP 16–18; TEMP 36.2–37; O2SAT 95–98
[2022-12-10] MEDS: vancomycin HCL 1,250 MG in 0.9 % Sodium Chloride 250 ML 166.67 MG IV ×2 (06:16→19:28)
[2022-12-10 07:25] LABS: Creatinine Clr Calc Pharmacy 120.9; Estimated Glomerular Filt Rate > 60
[2022-12-10 07:36] LABS: Glucose, Whole Blood 112 mg/dL (60-115)
[2022-12-10] MEDS: Cholecalciferol (Vitamin D3) 25 MCG TABLET 50 MCG PO (08:15)
[2022-12-10] MEDS: Ascorbic Acid 500 MG TABLET PO (08:15)
[2022-12-10] MEDS: Gabapentin 100 MG CAPSULE PO ×3 (08:15→19:42)
[2022-12-10] MEDS: Nicotine 21 MG PATCH.TD24 TRANSDERMA (08:15)
[2022-12-10] MEDS: Cyanocobalamin (Vitamin B-12) 100 MCG TABLET 50 MCG PO (08:15)
[2022-12-10] MEDS: 0.9 % Sodium Chloride Flush 3 ML SYRINGE IVFLUSH ×3 (08:16→23:19)
--- NOTE | 2022-12-10 10:28 | PM.PNGS ---
Subjective Subjective Date of Service: 12/10/22 Patient reports: no new complaints Interval history: The patient is seen in coverage Patient reports that he is finally accepted the fact that he needs to have surgery and is in agreement to have left foot 5th digit toe amputation with Dr. Singh tomorrow. He otherwise denies any chest pain, difficulty breathing or shortness of breath. Physical Exam Vital Signs: Vital Signs: Last Vital Signs Temp 98.2 F 12/10/22 07:09 Pulse 79 12/10/22 07:09 Resp 16 12/10/22 07:09 BP 112/69 12/10/22 07:09 Pulse Ox 98 12/10/22 07:09 O2 Del Method 12/10/22 07:09 BMI result Body Mass Index 29.7 Patient is nontoxic He is in good spirits He is in no respiratory distress Left lower extremity dressing is in place Objective Data Active Medications Acetaminophen (Acetaminophen 325 Mg Tablet) 650 mg PO Q6H PRN PRN Reason: Pain, Mild (Pain Scale 1-3) Ascorbic Acid (Ascorbic Acid 500 Mg Tablet) 500 mg PO DAILY [facility] Last Admin: 12/10/22 08:15 Dose: 500 mg Documented By: EVERETTE Cyanocobalamin (Cyanocobalamin (Vitamin B-12) 100 Mcg Tablet) 50 mcg PO DAILY [facility] Last Admin: 12/10/22 08:15 Dose: 50 mcg Documented By: EVERETTE Docusate Sodium (Docusate Sodium 100 Mg Capsule) 100 mg PO DAILY PRN PRN Reason: Constipation Enoxaparin Sodium (Enoxaparin Sodium 40 Mg/0.4 Ml Syringe) 40 mg SUBCUT Q24H [facility] Last Admin: 12/09/22 15:18 Dose: 40 mg Documented By: ANA ROSA Gabapentin (Gabapentin 100 Mg Capsule) 100 mg PO TID [facility] Last Admin: 12/10/22 08:15 Dose: 100 mg Documented By: EVERETTE Glucose (Glucose Gel 15 Gm Gel..Gram.) 15 gm PO Q15M PRN; Protocol PRN Reason: per Hypoglycemia Standing Ord. Hydroxyzine HCl (Hydroxyzine Hcl 25 Mg Tablet) 25 mg PO QID PRN PRN Reason: Anxiety Last Admin: 12/08/22 16:49 Dose: 25 mg Documented By: ANA ROSA Cefepime HCl 2 gm/ Sodium (Chloride) 50 mls @ 100 mls/hr IV Q12H [facility] Last Infusion: 12/09/22 23:19 Dose: 0 mls/hr Documented By: BRENNAN Dextrose (D10) 250 mls @ 750 mls/hr IV Q15M PRN; Protocol PRN Reason: per Hypoglycemia Standing Ord. Vancomycin HCl 1,250 mg/ (Sodium Chloride) 250 mls @ 166.667 mls/hr IV Q12H [facility] Last Infusion: 12/10/22 08:38 Dose: 166.67 mls/hr Documented By: EVERETTE Insulin Human Lispro (Insulin Lispro 100 Unit/Ml 3 Ml Vial) 0 unit SUBCUT QIDACHS [facility]; Protocol Last Admin: 12/10/22 07:37 Dose: Not Given Documented By: EVERETTE Non-Admin Reason: No Insulin Coverage Lorazepam (Lorazepam 0.5 Mg Tablet) 0.5 mg PO Q4H PRN PRN Reason: Anxiety Last Admin: 12/09/22 15:25 Dose: 0.5 mg Documented By: ANA ROSA Nicotine (Nicotine 21 Mg Patch.Td24) 21 mg TRANSDERMA DAILY [facility] Last Admin: 12/10/22 08:15 Dose: 21 mg Documented By: EVERETTE Ondansetron HCl (Ondansetron Hcl 4 Mg/2 Ml Vial) 4 mg IVPUSH Q8H PRN PRN Reason: Nausea and Vomiting Pharmacy Consult (Consult Rx Perform Med Rec) 1 each MISCELLANE ONCE PRN PRN Reason: Consult order Pharmacy Consult (Consult Rx Vancomycin Dosing) 1 each MISCELLANE DAILY PRN PRN Reason: Consult order Sodium Chloride (0.9 % Sodium Chloride Flush 3 Ml Syringe) 3 ml IVFLUSH QSHIFT [facility] Last Admin: 12/10/22 08:16 Dose: 3 ml Documented By: EVEERTTE Vitamin D (Cholecalciferol (Vitamin D3) 25 Mcg Tablet) 50 mcg PO DAILY [facility] Last Admin: 12/10/22 08:15 Dose: 50 mcg Documented By: EVERETTE Labs 12/08/22 11:57 12/10/22 06:34 Labs: Laboratory Results - last 24 hr 12/09/22 12/09/22 12/09/22 09:18 09:18 11:06 ESR 51 H Anion Gap Estim Creat Clear Calc 120.9 Estimated GFR > 60 POC Glucose 137 H Random Glucose Estimat Average Glucose Hemoglobin A1c % Calcium Vancomycin Trough 12/09/22 12/09/22 12/09/22 14:54 15:51 15:51 ESR Anion Gap 16 Estim Creat Clear Calc 123.8 Estimated GFR > 60 POC Glucose 192 H Random Glucose 152 H Estimat Average Glucose Hemoglobin A1c % Calcium 8.8 Vancomycin Trough 12.2 12/09/22 12/09/22 12/09/22 15:51 17:06 20:32 ESR Anion Gap Estim Creat Clear Calc Estimated GFR POC Glucose 198 H 104 Random Glucose Estimat Average Glucose 137 Hemoglobin A1c % 6.4 Calcium Vancomycin Trough 12/10/22 12/10/22 06:34 07:13 ESR Anion Gap Estim Creat Clear Calc 120.9 Estimated GFR > 60 POC Glucose 112 Random Glucose Estimat Average Glucose Hemoglobin A1c % Calcium Vancomycin Trough Microbiology Microbiology Results: Microbiology 12/08/22 12:02 Blood Culture - Preliminary Blood - Venous No growth after 24 hours. 12/08/22 11:57 Blood Culture - Preliminary Blood - Venous No growth after 24 hours. Procedures Date of Service Date of Service: 12/10/22 Progress Note: A&P Assessment and plan (1) Osteomyelitis: Status: Acute (2) 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: Status: Acute Plan Patient for OR tomorrow. NPO after midnight Continue antibiotics for now. Dr. Singh to assume care tomorrow. Time Spent With Patient Time: Total time managing care of this patient today ____ minutes. Quality Stroke Does the patient have a stroke diagnosis?: No VTE Prior VTE?: No VTE Risk Level:: Medical - moderate - high VTE Device Contraindication: Treatment Not Indicated VTE Drug Contraindication: N/A - Med Ordered
--- NOTE | 2022-12-10 11:03 | HO.PM.IMPN ---
Subjective Subjective Date of Service: 12/10/22 Interval History: no fever pain controlled Review of Systems Review of Systems: Yes all other systems are reviewed and are negative Physical Exam Vital Signs: Vital Signs: Last Vital Signs Temp 98.2 F 12/10/22 07:09 Pulse 79 12/10/22 07:09 Resp 16 12/10/22 07:09 BP 112/69 12/10/22 07:09 Pulse Ox 98 12/10/22 07:09 O2 Del Method 12/10/22 07:09 BMI result Body Mass Index 29.7 Gen: in no acute distress HEENT: sclera anicteric, moist mucus membranes Neck: supple Lungs: clear to auscultation bilaterally Heart: regular rate and rhythm, no murmurs Abd: soft, non-tender, non-distended Ext: L 5th toe swollen/erythematous with lateral ulcer; prior 3rd + 4th toes amputated Skin: warm/well-perfused Neuro: alert and oriented x3, no focal findings Psych: appropriate affect Objective Data Active Medications Acetaminophen (Acetaminophen 325 Mg Tablet) 650 mg PO Q6H PRN PRN Reason: Pain, Mild (Pain Scale 1-3) Ascorbic Acid (Ascorbic Acid 500 Mg Tablet) 500 mg PO DAILY [facility] Last Admin: 12/10/22 08:15 Dose: 500 mg Documented By: EVERETTE Cyanocobalamin (Cyanocobalamin (Vitamin B-12) 100 Mcg Tablet) 50 mcg PO DAILY [facility] Last Admin: 12/10/22 08:15 Dose: 50 mcg Documented By: EVERETTE Docusate Sodium (Docusate Sodium 100 Mg Capsule) 100 mg PO DAILY PRN PRN Reason: Constipation Enoxaparin Sodium (Enoxaparin Sodium 40 Mg/0.4 Ml Syringe) 40 mg SUBCUT Q24H [facility] Last Admin: 12/09/22 15:18 Dose: 40 mg Documented By: ANA ROSA Gabapentin (Gabapentin 100 Mg Capsule) 100 mg PO TID [facility] Last Admin: 12/10/22 08:15 Dose: 100 mg Documented By: EVERETTE Glucose (Glucose Gel 15 Gm Gel..Gram.) 15 gm PO Q15M PRN; Protocol PRN Reason: per Hypoglycemia Standing Ord. Hydroxyzine HCl (Hydroxyzine Hcl 25 Mg Tablet) 25 mg PO QID PRN PRN Reason: Anxiety Last Admin: 12/08/22 16:49 Dose: 25 mg Documented By: ANA ROSA Cefepime HCl 2 gm/ Sodium (Chloride) 50 mls @ 100 mls/hr IV Q12H [facility] Last Infusion: 12/09/22 23:19 Dose: 0 mls/hr Documented By: BRENNAN Dextrose (D10) 250 mls @ 750 mls/hr IV Q15M PRN; Protocol PRN Reason: per Hypoglycemia Standing Ord. Vancomycin HCl 1,250 mg/ (Sodium Chloride) 250 mls @ 166.667 mls/hr IV Q12H [facility] Last Infusion: 12/10/22 08:38 Dose: 166.67 mls/hr Documented By: EVERETTE Insulin Human Lispro (Insulin Lispro 100 Unit/Ml 3 Ml Vial) 0 unit SUBCUT QIDACHS [facility]; Protocol Last Admin: 12/10/22 07:37 Dose: Not Given Documented By: EVERETTE Non-Admin Reason: No Insulin Coverage Lorazepam (Lorazepam 0.5 Mg Tablet) 0.5 mg PO Q4H PRN PRN Reason: Anxiety Last Admin: 12/09/22 15:25 Dose: 0.5 mg Documented By: ANA ROSA Nicotine (Nicotine 21 Mg Patch.Td24) 21 mg TRANSDERMA DAILY [facility] Last Admin: 12/10/22 08:15 Dose: 21 mg Documented By: EVERETTE Ondansetron HCl (Ondansetron Hcl 4 Mg/2 Ml Vial) 4 mg IVPUSH Q8H PRN PRN Reason: Nausea and Vomiting Pharmacy Consult (Consult Rx Perform Med Rec) 1 each MISCELLANE ONCE PRN PRN Reason: Consult order Pharmacy Consult (Consult Rx Vancomycin Dosing) 1 each MISCELLANE DAILY PRN PRN Reason: Consult order Sodium Chloride (0.9 % Sodium Chloride Flush 3 Ml Syringe) 3 ml IVFLUSH QSHIFT [facility] Last Admin: 12/10/22 08:16 Dose: 3 ml Documented By: EVERETTE Vitamin D (Cholecalciferol (Vitamin D3) 25 Mcg Tablet) 50 mcg PO DAILY [facility] Last Admin: 12/10/22 08:15 Dose: 50 mcg Documented By: EVERETTE Labs 12/08/22 11:57 12/10/22 06:34 Labs: Laboratory Results - last 24 hr 12/09/22 12/09/22 12/09/22 09:18 09:18 11:06 ESR 51 H Anion Gap Estim Creat Clear Calc 120.9 Estimated GFR > 60 POC Glucose 137 H Random Glucose Estimat Average Glucose Hemoglobin A1c % Calcium Vancomycin Trough 12/09/22 12/09/22 12/09/22 14:54 15:51 15:51 ESR Anion Gap 16 Estim Creat Clear Calc 123.8 Estimated GFR > 60 POC Glucose 192 H Random Glucose 152 H Estimat Average Glucose Hemoglobin A1c % Calcium 8.8 Vancomycin Trough 12.2 12/09/22 12/09/22 12/09/22 15:51 17:06 20:32 ESR Anion Gap Estim Creat Clear Calc Estimated GFR POC Glucose 198 H 104 Random Glucose Estimat Average Glucose 137 Hemoglobin A1c % 6.4 Calcium Vancomycin Trough 12/10/22 12/10/22 06:34 07:13 ESR Anion Gap Estim Creat Clear Calc 120.9 Estimated GFR > 60 POC Glucose 112 Random Glucose Estimat Average Glucose Hemoglobin A1c % Calcium Vancomycin Trough Microbiology Microbiology Results: Microbiology 12/08/22 12:02 Blood Culture - Preliminary Blood - Venous No growth after 24 hours. 12/08/22 11:57 Blood Culture - Preliminary Blood - Venous No growth after 24 hours. Assessment and Plan (1) Osteomyelitis: Status: Acute Assessment and Plan: d#3 47yo M with DM2 with hx ulcers, osteomyelitis + MSSA bacteremia s/p multiple toe amputations presenting with redness/swelling/ulcer of L 5th toe, admitted for osteomyelitis after failing outpt doxycycline # DM ulcer with osteomyelitis - d#3 vanco + cefepime, follow BCx, ID consulted, Gen Surg consulted, pt now wishes to proceed with amputation, Gen Surg notified # anxiety - lorazepam + hydroxyzine # DM2, A1c 6.4 - correction-dose lispro # tobacco abuse - NRT # VTE ppx: LMWH # dispo: likely home with VNA eventually In my clinical judgment, the patient requires continued inpatient hospitalization for the following reasons: IV ABX, operative intervention Time Spent With Patient Time: Total time managing care of this patient today _35___ minutes. Quality Stroke Does the patient have a stroke diagnosis?: No VTE Prior VTE?: No VTE Risk Level:: Medical - moderate - high VTE Device Contraindication: Treatment Not Indicated VTE Drug Contraindication: N/A - Med Ordered
[2022-12-10] MEDS: cefEPime HCl 2 GM in 0.9 % Sodium Chloride 50 ML IV ×2 (11:08→23:19)
[2022-12-10 11:28] LABS: Glucose, Whole Blood 128 mg/dL (60-115)
[2022-12-10 14:04] LABS: Creatinine Clr Calc Pharmacy 106.1; Estimated Glomerular Filt Rate > 60
[2022-12-10] MEDS: Enoxaparin Sodium 40 MG/0.4 ML SYRINGE SUBCUT (15:11)
[2022-12-10] MEDS: LORazepam 0.5 MG TABLET PO ×2 (15:17→19:42)
[2022-12-10 16:37] LABS: Glucose, Whole Blood 126 mg/dL (60-115)
[2022-12-10] MEDS: Insulin Lispro 100 UNIT/ML 3 ML VIAL SUBCUT (19:41)
[2022-12-10 19:42] LABS: Glucose, Whole Blood 152 mg/dL (60-115)
[2022-12-11] VITALS (11 sets, daily range): BP systolic 96–137; BP diastolic 62–84; PULSE 75–102; RESP 16–18; TEMP 35.9–37.4; O2SAT 96–98
[2022-12-11] MEDS: LORazepam 0.5 MG TABLET PO ×4 (00:10→21:38)
[2022-12-11 06:13] LABS: Hematocrit 52.6 % (42.0-52.0); Hemoglobin 17.7 g/dl (14.0-18.0); Mean Corpuscular HGB Conc 33.7 g/dl (31.0-36.0); Mean Corpuscular Hemoglobin 28.8 pg (27.0-33.0); Mean Corpuscular Volume 85.5 fL (80.0-98.0); Mean Platelet Volume 8.6 fL (9.4-12.4); Platelet Count 367 X10*3/uL (160-400); Red Blood Count 6.15 X10*6/uL (4.60-5.80); Red Cell Distribution Width 13.1 % (11.0-16.0)
[2022-12-11 06:33] LABS: Vancomycin Random 15.7 mcg/mL (15-20)
[2022-12-11 06:44] LABS: Anion Gap 16 (12-20); Blood Urea Nitrogen 10 mg/dL (9-16); Calcium 9.2 mg/dL (8.4-10.2); Carbon Dioxide 25 mmol/L (22-29); Chloride 107 mmol/L (96-108); Creatinine Clr Calc Pharmacy 126.8; Estimated Glomerular Filt Rate > 60; Glucose Random 105 mg/dL (60-115); Potassium 4.7 mmol/L (3.3-5.1); Sodium 143 mmol/L (135-145)
[2022-12-11 07:35] LABS: Glucose, Whole Blood 132 mg/dL (60-115)
--- NOTE | 2022-12-11 08:07 | PM.PNGS ---
Subjective Subjective Date of Service: 12/11/22 Interval history: Patient is anxious about surgery today but wishes to proceed as planned. He would like a PICC line for home IV antibiotics, discharge to home as soon as possible. Physical Exam Vital Signs: Vital Signs: Last Vital Signs Temp 97.2 F 12/11/22 07:02 Pulse 79 12/11/22 07:02 Resp 16 12/11/22 07:02 BP 109/71 12/11/22 07:02 Pulse Ox 98 12/11/22 07:02 O2 Del Method 12/11/22 07:02 BMI result Body Mass Index 29.7 Const: General: comfortable and no acute distress Nutritional Appearance: well nourished Orientation/consciousness: patient oriented x3 Limitations: no limitations HEENT: Head: Yes normocephalic and Yes atraumatic Teeth and gingiva: dentures and edentulous Resp: Effort & Inspection: normal respiratory effort GI: Inspection: Yes normal to inspection Neuro: General: patient oriented x3 Extrem: Other: left foot dressings intact Objective Data Active Medications Acetaminophen (Acetaminophen 325 Mg Tablet) 650 mg PO Q6H PRN PRN Reason: Pain, Mild (Pain Scale 1-3) Ascorbic Acid (Ascorbic Acid 500 Mg Tablet) 500 mg PO DAILY [facility] Last Admin: 12/10/22 08:15 Dose: 500 mg Documented By: EVERETTE Cyanocobalamin (Cyanocobalamin (Vitamin B-12) 100 Mcg Tablet) 50 mcg PO DAILY [facility] Last Admin: 12/10/22 08:15 Dose: 50 mcg Documented By: EVERETTE Docusate Sodium (Docusate Sodium 100 Mg Capsule) 100 mg PO DAILY PRN PRN Reason: Constipation Enoxaparin Sodium (Enoxaparin Sodium 40 Mg/0.4 Ml Syringe) 40 mg SUBCUT Q24H [facility] Last Admin: 12/10/22 15:11 Dose: 40 mg Documented By: ANA ROSA Gabapentin (Gabapentin 100 Mg Capsule) 100 mg PO TID [facility] Last Admin: 12/10/22 19:42 Dose: 100 mg Documented By: ANA ROSA Glucose (Glucose Gel 15 Gm Gel..Gram.) 15 gm PO Q15M PRN; Protocol PRN Reason: per Hypoglycemia Standing Ord. Hydroxyzine HCl (Hydroxyzine Hcl 25 Mg Tablet) 25 mg PO QID PRN PRN Reason: Anxiety Last Admin: 12/08/22 16:49 Dose: 25 mg Documented By: ANA ROSA Cefepime HCl 2 gm/ Sodium (Chloride) 50 mls @ 100 mls/hr IV Q12H [facility] Last Infusion: 12/10/22 23:49 Dose: 0 mls/hr Documented By: NASRIN Dextrose (D10) 250 mls @ 750 mls/hr IV Q15M PRN; Protocol PRN Reason: per Hypoglycemia Standing Ord. Vancomycin HCl 1,250 mg/ (Sodium Chloride) 250 mls @ 166.667 mls/hr IV Q12H [facility] Last Infusion: 12/10/22 21:11 Dose: 0 mls/hr Documented By: ANA ROSA Insulin Human Lispro (Insulin Lispro 100 Unit/Ml 3 Ml Vial) 0 unit SUBCUT QIDACHS [facility]; Protocol Last Admin: 12/11/22 07:59 Dose: Not Given Documented By: JOAN Non-Admin Reason: No Insulin Coverage Lorazepam (Lorazepam 0.5 Mg Tablet) 0.5 mg PO Q4H PRN PRN Reason: Anxiety Last Admin: 12/11/22 00:10 Dose: 0.5 mg Documented By: NASRIN Nicotine (Nicotine 21 Mg Patch.Td24) 21 mg TRANSDERMA DAILY [facility] Last Admin: 12/10/22 08:15 Dose: 21 mg Documented By: EVERETTE Ondansetron HCl (Ondansetron Hcl 4 Mg/2 Ml Vial) 4 mg IVPUSH Q8H PRN PRN Reason: Nausea and Vomiting Pharmacy Consult (Consult Rx Perform Med Rec) 1 each MISCELLANE ONCE PRN PRN Reason: Consult order Pharmacy Consult (Consult Rx Vancomycin Dosing) 1 each MISCELLANE DAILY PRN PRN Reason: Consult order Sodium Chloride (0.9 % Sodium Chloride Flush 3 Ml Syringe) 3 ml IVFLUSH QSHIFT [facility] Last Admin: 12/10/22 23:19 Dose: 3 ml Documented By: NASRIN Vitamin D (Cholecalciferol (Vitamin D3) 25 Mcg Tablet) 50 mcg PO DAILY [facility] Last Admin: 12/10/22 08:15 Dose: 50 mcg Documented By: EVERETTE Labs 12/11/22 05:08 12/11/22 05:08 Labs: Laboratory Results - last 24 hr 12/10/22 12/10/22 12/10/22 11:08 13:40 13:40 MCV MCH MCHC RDW Plt Count MPV Absolute Nucleated RBC Nucleated RBC % (auto) Anion Gap Estim Creat Clear Calc 106.1 Estimated GFR > 60 POC Glucose 128 H Random Glucose Calcium Random Vancomycin 18.0 12/10/22 12/10/22 12/11/22 16:14 19:14 05:08 MCV 85.5 MCH 28.8 MCHC 33.7 RDW 13.1 Plt Count 367 MPV 8.6 L Absolute Nucleated RBC 0.000 Nucleated RBC % (auto) 0.0 Anion Gap Estim Creat Clear Calc Estimated GFR POC Glucose 126 H 152 H Random Glucose Calcium Random Vancomycin 12/11/22 12/11/22 12/11/22 05:08 05:08 07:05 MCV MCH MCHC RDW Plt Count MPV Absolute Nucleated RBC Nucleated RBC % (auto) Anion Gap 16 Estim Creat Clear Calc 126.8 Estimated GFR > 60 POC Glucose 132 H Random Glucose 105 Calcium 9.2 Random Vancomycin 15.7 Microbiology Microbiology Results: Microbiology 12/08/22 12:02 Blood Culture - Preliminary Blood - Venous No growth after 48 hours. 12/08/22 11:57 Blood Culture - Preliminary Blood - Venous No growth after 48 hours. Procedures Date of Service Date of Service: 12/11/22 Progress Note: A&P Assessment and plan (1) Osteomyelitis: Status: Acute (2) Staphylococcus aureus bacteremia: Status: Acute Plan 47 year old male patient with previous amputation of the left 3-4th toe now with infection involving the 5th toe with probable osteomyelitis. I reviewed the procedure, alternatives and risks of the amputation of the left 5th toe and he consents to the surgery. He has been added on the schedule by Dr. Bonilla. Time Spent With Patient Time: Total time managing care of this patient today ____ minutes. Quality Stroke Does the patient have a stroke diagnosis?: No VTE Prior VTE?: No VTE Risk Level:: Medical - moderate - high VTE Device Contraindication: Treatment Not Indicated VTE Drug Contraindication: N/A - Med Ordered
--- NOTE | 2022-12-11 08:28 | HE.PHANOTE ---
Vancomycin Dosing Level 15.7 today. Level drawn 1 hour early. Renal function is stable. Continue current regimen,. Next level 12/12 @ 1800. Kamini GreshamD
[2022-12-11] MEDS: vancomycin HCL 1,250 MG in 0.9 % Sodium Chloride 250 ML 166.67 MG IV ×2 (08:32→19:53)
[2022-12-11] MEDS: 0.9 % Sodium Chloride Flush 3 ML SYRINGE IVFLUSH (08:33)
[2022-12-11] MEDS: Nicotine 21 MG PATCH.TD24 TRANSDERMA (08:38)
--- NOTE | 2022-12-11 09:49 | MHC.CM.PN ---
Addendum entered by Lyric Rey 12/11/22 15:02: Additional clinical information has been sent to [facility]. Original Note: Patient with foot infection is planned for amputation today. A PICC line will be inserted for LT IV ABX. DP Home with LT IV ABX. [facility] will resume services. [facility] has been sent a referral for home infusion services.
--- NOTE | 2022-12-11 09:50 | P.CONAN_ITS ---
HPI - Anesthesia Eval Consult details Narrative: 47 yo male patient for Left foot 5th toe amputation PMFSH Active Problems Active Problems: All Active Problems (Updated 12/11/22 @ 09:50 by Jody Wakefield RN) Positive blood culture (Acute) Bacteremia due to Streptococcus (Acute) Osteomyelitis (Acute) Staphylococcus aureus bacteremia (Acute) 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 (Acute) Bacterial infection due to Streptococcus, group C (Acute) Past Medical History Medical History Acidosis, lactic Anxiety Bacterial infection due to Streptococcus, group C Cellulitis Diabetes type 2, controlled 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 GERD (gastroesophageal reflux disease) Marijuana smoker MRSA (methicillin resistant Staphylococcus aureus) Posttraumatic stress disorder Right foot infection Staphylococcus aureus bacteremia Family History Family history of problems with anesthesia: No Surgical History Surgical History History of incision and drainage History of laparoscopic cholecystectomy History of partial amputation of toe (10/11/22) History of Problems with Anesthesia: No Social History Social History Household Members: None Housing: Apartment Do you presently have visiting nurse or other home services: Yes Alcohol intake: never Patient Tobacco Use Status: Current everyday Tobacco user Tobacco use type: Cigarette Cigarette Packs Per Day: 1 Cigarettes Per Day: 10 Years Smoked: 36 years Smoked in Last 30 Days: Yes Patient Interested in Nicotine Replacement: Yes Patient Given Instructions on How to Stop Smoking: Yes Date Education Initiated: 12/08/22 Second Hand Smoke Exposure: No Use of substances other than those prescribed or required for medical reasons: Yes Substance Use Type: Marijuana Substance Use Frequency: Occasionally Last Used Substance: Hours (ago) Currently Displaying Signs/Symptoms of Drug Intoxication Withdrawal: No Any prior treatment program specific to substance use: No Have you been hit, kicked, punched, or otherwise hurt by someone within the past year? If so, by whom?: No Do you feel safe in your current relationship?: Yes Is there a partner from a previous relationship who is making you feel unsafe now?: No Are you made to feel afraid or neglected: No Are you DNR?: No Advance Directives: No Advance Directives Information Provided: Yes Do you have thoughts of harming others: None Do you have a plan to hurt others: No Plan Recently lost weight without trying: No Nutrition Risks: No Nutritional Risk service: No Current occupational status: disabled Meds Allergies Allergy/AdvReac Type Severity Reaction Status Date / Time amoxicillin [AMOXICILLIN] Allergy Severe ANAPHYLAXIS Verified 10/20/22 09:31 oxycodone [From Tylox] Allergy Intermediate Itching Verified 10/20/22 09:31 hydrocodone [HYDROCODONE] Allergy Unknown UNKNOWN Verified 10/20/22 09:31 From TYLOX Allergy Intermediate ITCHING Uncoded 10/20/22 09:31 Active Medications: Current Medications Acetaminophen (Acetaminophen 325 Mg Tablet) 650 mg PO Q6H PRN PRN Reason: Pain, Mild (Pain Scale 1-3) Ascorbic Acid (Ascorbic Acid 500 Mg Tablet) 500 mg PO DAILY [facility] Last Admin: 12/11/22 09:13 Dose: Not Given Cyanocobalamin (Cyanocobalamin (Vitamin B-12) 100 Mcg Tablet) 50 mcg PO DAILY [facility] Last Admin: 12/11/22 09:13 Dose: Not Given Docusate Sodium (Docusate Sodium 100 Mg Capsule) 100 mg PO DAILY PRN PRN Reason: Constipation Enoxaparin Sodium (Enoxaparin Sodium 40 Mg/0.4 Ml Syringe) 40 mg SUBCUT Q24H [facility] Last Admin: 12/10/22 15:11 Dose: 40 mg Gabapentin (Gabapentin 100 Mg Capsule) 100 mg PO TID [facility] Last Admin: 12/11/22 09:13 Dose: Not Given Glucose (Glucose Gel 15 Gm Gel..Gram.) 15 gm PO Q15M PRN; Protocol PRN Reason: per Hypoglycemia Standing Ord. Hydroxyzine HCl (Hydroxyzine Hcl 25 Mg Tablet) 25 mg PO QID PRN PRN Reason: Anxiety Last Admin: 12/08/22 16:49 Dose: 25 mg Cefepime HCl 2 gm/ Sodium (Chloride) 50 mls @ 100 mls/hr IV Q12H [facility] Last Infusion: 12/10/22 23:49 Dose: Infused Dextrose (D10) 250 mls @ 750 mls/hr IV Q15M PRN; Protocol PRN Reason: per Hypoglycemia Standing Ord. Vancomycin HCl 1,250 mg/ (Sodium Chloride) 250 mls @ 166.667 mls/hr IV Q12H [facility] Last Admin: 12/11/22 08:32 Dose: 166.67 mls/hr Insulin Human Lispro (Insulin Lispro 100 Unit/Ml 3 Ml Vial) 0 unit SUBCUT QIDACHS [facility]; Protocol Last Admin: 12/11/22 07:59 Dose: Not Given Lorazepam (Lorazepam 0.5 Mg Tablet) 0.5 mg PO Q4H PRN PRN Reason: Anxiety Last Admin: 12/11/22 08:52 Dose: 0.5 mg Nicotine (Nicotine 21 Mg Patch.Td24) 21 mg TRANSDERMA DAILY [facility] Last Admin: 12/11/22 08:38 Dose: 21 mg Ondansetron HCl (Ondansetron Hcl 4 Mg/2 Ml Vial) 4 mg IVPUSH Q8H PRN PRN Reason: Nausea and Vomiting Pharmacy Consult (Consult Rx Perform Med Rec) 1 each MISCELLANE ONCE PRN PRN Reason: Consult order Pharmacy Consult (Consult Rx Vancomycin Dosing) 1 each MISCELLANE DAILY PRN PRN Reason: Consult order Sodium Chloride (0.9 % Sodium Chloride Flush 3 Ml Syringe) 3 ml IVFLUSH QSHIFT [facility] Last Admin: 12/11/22 08:33 Dose: 3 ml Vitamin D (Cholecalciferol (Vitamin D3) 25 Mcg Tablet) 50 mcg PO DAILY [facility] Last Admin: 12/11/22 09:13 Dose: Not Given Home Medications Medication Instructions Recorded Confirmed Last Taken Type cholecalciferol (vitamin D3) 50 50 mcg PO DAILY 11/04/21 12/08/22 12/07/22 History mcg (2,000 unit) capsule hydroxyzine HCl 25 mg tablet 25 mg PO QID PRN Anxiety 09/14/22 12/08/22 12/07/22 History gabapentin 100 mg capsule 100 mg PO TID 10/06/22 12/08/22 12/07/22 History metformin 500 mg tablet 500 mg PO BID 10/06/22 12/08/22 12/07/22 History ascorbic acid (vitamin C) 500 mg 500 mg PO DAILY 11/29/22 12/08/22 12/07/22 History tablet dulaglutide 1.5 mg/0.5 mL 1.5 mg subcut ALMENDAREZ 11/29/22 12/08/22 12/03/22 History [facility] glipizide 5 mg tablet 10 mg PO DAILY 11/29/22 12/08/2212/07/23 History cyanocobalamin (vitamin B-12) 50 50 mcg PO DAILY 12/08/22 12/08/22 12/07/22 History mcg tablet Exam Exam Date and Time: December 11, 2022 0950 Height,Weight and Vital Signs: Height 5 ft 10 in Weight 94 kg Last Vital Signs Temp 97.2 F 12/11/22 07:02 Pulse 79 12/11/22 07:02 Resp 16 12/11/22 07:02 BP 109/71 12/11/22 07:02 Pulse Ox 98 12/11/22 07:02 O2 Del Method 12/11/22 07:02 Vital Signs Temp Pulse Resp BP Pulse Ox O2 Del Method 12/11/22 09:51 98.8 F 77 16 107/84 96 Room Air 12/11/22 07:02 97.2 F 79 16 109/71 98 Room Air 12/11/22 03:24 98.2 F 78 16 126/75 97 Room Air 12/10/22 23:38 97.3 F 76 16 113/69 97 Room Air 12/10/22 20:00 97.1 F 79 18 115/67 96 Room Air 12/10/22 19:48 97.8 F 12/10/22 19:22 97.8 F 12/10/22 15:58 97.1 F 78 18 119/69 98 Room Air 12/10/22 15:57 97.1 F 78 18 119/69 98 Room Air Pertinent Lab Results Pertinent Lab Results: Laboratory Tests 12/08/22 12/08/22 12/08/22 11:56 11:57 11:57 WBC 14.1 H RBC 5.67 Hgb 16.4 Hct 48.8 MCV 86.1 MCH 28.9 MCHC 33.6 RDW 13.2 Plt Count 327 MPV 8.6 L Immature Gran % (Auto) 0.6 H Neut % (Auto) 77.8 H Lymph % (Auto) 14.2 L Todd % (Auto) 6.8 Eos % (Auto) 0.1 Baso % (Auto) 0.5 Lymph # (Auto) 2.0 Todd # (Auto) 1.0 Eos # (Auto) 0.0 Baso # (Auto) 0.1 Abs Immat Gran (auto) 0.08 H Absolute Neuts (auto) 10.9 H Absolute Nucleated RBC 0.000 Nucleated RBC % (auto) 0.0 ESR PT 15.0 H INR 1.3 H APTT 32.7 Sodium Potassium Chloride Carbon Dioxide Anion Gap BUN Creatinine Estim Creat Clear Calc Estimated GFR POC Glucose Random Glucose Estimat Average Glucose Hemoglobin A1c % Lactic Acid Calcium Total Bilirubin Direct Bilirubin AST ALT Alkaline Phosphatase C-Reactive Protein Total Protein Albumin Vancomycin Trough Random Vancomycin COVID-19 ([facility]) Negative COVID-19 Clin Com See Note 12/08/22 12/08/22 12/08/22 11:57 11:57 16:40 WBC RBC Hgb Hct MCV MCH MCHC RDW Plt Count MPV Immature Gran % (Auto) Neut % (Auto) Lymph % (Auto) Todd % (Auto) Eos % (Auto) Baso % (Auto) Lymph # (Auto) Todd # (Auto) Eos # (Auto) Baso # (Auto) Abs Immat Gran (auto) Absolute Neuts (auto) Absolute Nucleated RBC Nucleated RBC % (auto) ESR PT INR APTT Sodium 139 Potassium 4.2 Chloride 108 Carbon Dioxide 22 Anion Gap 13 BUN 9 Creatinine 0.85 Estim Creat Clear Calc 122.3 Estimated GFR > 60 POC Glucose 125 H Random Glucose 93 Estimat Average Glucose Hemoglobin A1c % Lactic Acid 1.0 Calcium 8.7 Total Bilirubin 0.6 Direct Bilirubin 0.2 AST 15 ALT 20 Alkaline Phosphatase 54 C-Reactive Protein 7.83 H Total Protein 6.6 Albumin 3.8 Vancomycin Trough Random Vancomycin COVID-19 ([facility]) COVID-19 [employer] [facility] 12/08/22 12/09/22 12/09/22 20:09 07:11 09:18 WBC RBC Hgb Hct MCV MCH MCHC RDW Plt Count MPV Immature Gran % (Auto) Neut % (Auto) Lymph % (Auto) Todd % (Auto) Eos % (Auto) Baso % (Auto) Lymph # (Auto) Todd # (Auto) Eos # (Auto) Baso # (Auto) Abs Immat Gran (auto) Absolute Neuts (auto) Absolute Nucleated RBC Nucleated RBC % (auto) ESR 51 H PT INR APTT Sodium Potassium Chloride Carbon Dioxide Anion Gap BUN Creatinine Estim Creat Clear Calc Estimated GFR POC Glucose 147 H 99 Random Glucose Estimat Average Glucose Hemoglobin A1c % Lactic Acid Calcium Total Bilirubin Direct Bilirubin AST ALT Alkaline Phosphatase C-Reactive Protein Total Protein Albumin Vancomycin Trough Random Vancomycin COVID-19 ([facility]) COVID-19 [employer] 12/09/22 12/09/22 12/09/22 09:18 11:06 14:54 WBC RBC Hgb Hct MCV MCH MCHC RDW Plt Count MPV Immature Gran % (Auto) Neut % (Auto) Lymph % (Auto) Todd % (Auto) Eos % (Auto) Baso % (Auto) Lymph # (Auto) Todd # (Auto) Eos # (Auto) Baso # (Auto) Abs Immat Gran (auto) Absolute Neuts (auto) Absolute Nucleated RBC Nucleated RBC % (auto) ESR PT INR APTT Sodium Potassium Chloride Carbon Dioxide Anion Gap BUN Creatinine 0.86 Estim Creat Clear Calc 120.9 Estimated GFR > 60 POC Glucose 137 H 192 H Random Glucose Estimat Average Glucose Hemoglobin A1c % Lactic Acid Calcium Total Bilirubin Direct Bilirubin AST ALT Alkaline Phosphatase C-Reactive Protein Total Protein Albumin Vancomycin Trough Random Vancomycin COVID-19 ([facility]) COVID-19 [employer] 12/09/22 12/09/22 12/09/22 15:51 15:51 15:51 WBC RBC Hgb Hct MCV MCH MCHC RDW Plt Count MPV Immature Gran % (Auto) Neut % (Auto) Lymph % (Auto) Todd % (Auto) Eos % (Auto) Baso % (Auto) Lymph # (Auto) Todd # (Auto) Eos # (Auto) Baso # (Auto) Abs Immat Gran (auto) Absolute Neuts (auto) Absolute Nucleated RBC Nucleated RBC % (auto) ESR PT INR APTT Sodium 138 Potassium 4.7 Chloride 106 Carbon Dioxide 21 L Anion Gap 16 BUN 10 Creatinine 0.84 Estim Creat Clear Calc 123.8 Estimated GFR > 60 POC Glucose Random Glucose 152 H Estimat Average Glucose 137 Hemoglobin A1c % 6.4 Lactic Acid Calcium 8.8 Total Bilirubin Direct Bilirubin AST ALT Alkaline Phosphatase C-Reactive Protein Total Protein Albumin Vancomycin Trough 12.2 Random Vancomycin COVID-19 ([facility]) COVID-19 [employer] 12/09/22 12/09/22 12/10/22 17:06 20:32 06:34 WBC RBC Hgb Hct MCV MCH MCHC RDW Plt Count MPV Immature Gran % (Auto) Neut % (Auto) Lymph % (Auto) Todd % (Auto) Eos % (Auto) Baso % (Auto) Lymph # (Auto) Todd # (Auto) Eos # (Auto) Baso # (Auto) Abs Immat Gran (auto) Absolute Neuts (auto) Absolute Nucleated RBC Nucleated RBC % (auto) ESR PT INR APTT Sodium Potassium Chloride Carbon Dioxide Anion Gap BUN Creatinine 0.86 Estim Creat Clear Calc 120.9 Estimated GFR > 60 POC Glucose 198 H 104 Random Glucose Estimat Average Glucose Hemoglobin A1c % Lactic Acid Calcium Total Bilirubin Direct Bilirubin AST ALT Alkaline Phosphatase C-Reactive Protein Total Protein Albumin Vancomycin Trough Random Vancomycin COVID-19 ([facility]) COVID-19 [employer] 12/10/22 12/10/22 12/10/22 07:13 11:08 13:40 WBC RBC Hgb Hct MCV MCH MCHC RDW Plt Count MPV Immature Gran % (Auto) Neut % (Auto) Lymph % (Auto) Todd % (Auto) Eos % (Auto) Baso % (Auto) Lymph # (Auto) Todd # (Auto) Eos # (Auto) Baso # (Auto) Abs Immat Gran (auto) Absolute Neuts (auto) Absolute Nucleated RBC Nucleated RBC % (auto) ESR PT INR APTT Sodium Potassium Chloride Carbon Dioxide Anion Gap BUN Creatinine Estim Creat Clear Calc Estimated GFR POC Glucose 112 128 H Random Glucose Estimat Average Glucose Hemoglobin A1c % Lactic Acid Calcium Total Bilirubin Direct Bilirubin AST ALT Alkaline Phosphatase C-Reactive Protein Total Protein Albumin Vancomycin Trough Random Vancomycin 18.0 COVID-19 ([facility]) COVID-19 [employer] 12/10/22 12/10/22 12/10/22 13:40 16:14 19:14 WBC RBC Hgb Hct MCV MCH MCHC RDW Plt Count MPV Immature Gran % (Auto) Neut % (Auto) Lymph % (Auto) Todd % (Auto) Eos % (Auto) Baso % (Auto) Lymph # (Auto) Todd # (Auto) Eos # (Auto) Baso # (Auto) Abs Immat Gran (auto) Absolute Neuts (auto) Absolute Nucleated RBC Nucleated RBC % (auto) ESR PT INR APTT Sodium Potassium Chloride Carbon Dioxide Anion Gap BUN Creatinine 0.98 Estim Creat Clear Calc 106.1 Estimated GFR > 60 POC Glucose 126 H 152 H Random Glucose Estimat Average Glucose Hemoglobin A1c % Lactic Acid Calcium Total Bilirubin Direct Bilirubin AST ALT Alkaline Phosphatase C-Reactive Protein Total Protein Albumin Vancomycin Trough Random Vancomycin COVID-19 ([facility]) COVID-19 [employer] 12/11/22 12/11/22 12/11/22 05:08 05:08 05:08 WBC 10.0 RBC 6.15 H Hgb 17.7 Hct 52.6 H MCV 85.5 MCH 28.8 MCHC 33.7 RDW 13.1 Plt Count 367 MPV 8.6 L Immature Gran % (Auto) Neut % (Auto) Lymph % (Auto) Todd % (Auto) Eos % (Auto) Baso % (Auto) Lymph # (Auto) Todd # (Auto) Eos # (Auto) Baso # (Auto) Abs Immat Gran (auto) Absolute Neuts (auto) Absolute Nucleated RBC 0.000 Nucleated RBC % (auto) 0.0 ESR PT INR APTT Sodium 143 Potassium 4.7 Chloride 107 Carbon Dioxide 25 Anion Gap 16 BUN 10 Creatinine 0.82 Estim Creat Clear Calc 126.8 Estimated GFR > 60 POC Glucose Random Glucose 105 Estimat Average Glucose Hemoglobin A1c % Lactic Acid Calcium 9.2 Total Bilirubin Direct Bilirubin AST ALT Alkaline Phosphatase C-Reactive Protein Total Protein Albumin Vancomycin Trough Random Vancomycin 15.7 COVID-19 ([facility]) COVID-19 [employer] 12/11/22 07:05 WBC RBC Hgb Hct MCV MCH MCHC RDW Plt Count MPV Immature Gran % (Auto) Neut % (Auto) Lymph % (Auto) Todd % (Auto) Eos % (Auto) Baso % (Auto) Lymph # (Auto) Todd # (Auto) Eos # (Auto) Baso # (Auto) Abs Immat Gran (auto) Absolute Neuts (auto) Absolute Nucleated RBC Nucleated RBC % (auto) ESR PT INR APTT Sodium Potassium Chloride Carbon Dioxide Anion Gap BUN Creatinine Estim Creat Clear Calc Estimated GFR POC Glucose 132 H Random Glucose Estimat Average Glucose Hemoglobin A1c % Lactic Acid Calcium Total Bilirubin Direct Bilirubin AST ALT Alkaline Phosphatase C-Reactive Protein Total Protein Albumin Vancomycin Trough Random Vancomycin COVID-19 ([facility]) COVID-19 Clin Com Airway Mallampati Class: II TM Dist: >3cm Neck ROM: Full Denture: Upper and Lower Loose/Missing/Broken Teeth: Yes (Dentures not in) Heart: RRR Lungs: Wheezing Right. Assessment and Plan Assessment Anesthesia Assessment: Anesthesia Plan Discussed and Chart Reviewed Final Anesthetic Review Family History of Problems with Anesthesia: No History of Problems with Anesthesia: No NPO: Yes ASA Class: III Final Preanesthetic Review: No Changes in Pt Med Stat, Meds/Allgs Chart Reviewed, Consent Obtained/Reviewed and Anes Risks/Benef Reviewed Patient Risk: Intermediate Procedure Risk: Low Assessment/Block/Sedation in SS: Assess/Block/Sedation-SS Anesthetic Plan Anesthetic Plan: GA Disposition: Standard PACU
--- NOTE | 2022-12-11 10:35 | PC.RT ---
Rt to [facility] for svn request. Pt refused, RN/MD are aware. RT available if needed.
--- NOTE | 2022-12-11 11:18 | W.PM.OPN ---
Operative Note Operative Note Date of Service: 12/11/22 Narrative: Preoperative diagnosis:Osteomyelitis left 5th toe Postoperative diagnosis: same Procedure: amputation left 5th toe Surgeon: Todd Singh MD Loading Unit Operator Powder Charging: Yashira Saba PA-C, JOSÉ Uribe Anesthesia: general LMA Indications for procedure: 47-year-old male patient with history of diabetes and previous history of amputation of the left 3rd and 4th toes now presenting with osteomyelitis involving the distal metatarsal and proximal phalanx of the 5th toe left side. Operative findings: left 5th MP joint with obvious osteomyelitis. Specimen: Bone culture of 5th toe left foot and distal metatarsal 5th toe left foot Estimated blood loss: 10 mL Complications: none Procedure details: patient was brought to the OR placed in a supine position. After administering general anesthesia the patient's left foot was prepped with Betadine and draped in a sterile fashion. A surgical time-out was called the consent confirmed. Patient received preoperative antibiotics and Venodyne boots were in place. Local anesthesia consisting of 0.5% Sensorcaine with epinephrine was then infiltrated as a digital block for the 5th toe. Elliptical incision oriented along the lateral surface of the metatarsal was then created to include a draining ulcer in the lateral foot at the MP joint. This was carried out through subcutaneous tissue and down to the metatarsal. Electrocautery was then used to dissect down to bone circumferentially. Hemostasis was assured using electrocautery. A bone cutter was then used to divide the metatarsal distally. The bone appeared very soft at this location therefore another cm bone was resected more proximally and sent for wound culture. Hemostasis was then assured using electrocautery. Wounds were then irrigated with saline solution and suctioned dry. Wounds were again checked for hemostasis. Dermis was then reapproximated using interrupted 3-0 Polysorb sutures. Skin was closed using interrupted 3-0 nylon sutures. Packing was applied to the proximal incision. Sterile dressings consisting of fluff gauze, ABD, Kerlix, and Jaylen bandage were then applied. The patient tolerated the procedure well. Sponge, instrument, and needle counts were reported as correct. He was transferred to PACU in stable condition.
[2022-12-11 12:00] LABS: Glucose, Whole Blood 118 mg/dL (60-115)
--- NOTE | 2022-12-11 12:04 | P.PNIM_ITS ---
Subjective Subjective Date of Service: 12/11/22 Interval History: NPO for OR no fever Review of Systems Review of Systems: Yes all other systems are reviewed and are negative Physical Exam Vital Signs: Vital Signs: Last Vital Signs Temp 97.8 F 12/11/22 11:47 Pulse 93 12/11/22 11:47 Resp 18 12/11/22 11:47 BP 125/74 12/11/22 11:47 Pulse Ox 98 12/11/22 11:47 O2 Del Method 12/11/22 11:47 BMI result Body Mass Index 29.7 Gen: in no acute distress HEENT: sclera anicteric, moist mucus membranes Neck: supple Lungs: clear to auscultation bilaterally Heart: regular rate and rhythm, no murmurs Abd: soft, non-tender, non-distended Ext: L 5th toe swollen/erythematous with lateral ulcer; prior 3rd + 4th toes amputated Skin: warm/well-perfused Neuro: alert and oriented x3, no focal findings Psych: appropriate affect Objective Data Active Medications Acetaminophen (Acetaminophen 325 Mg Tablet) 650 mg PO Q6H PRN PRN Reason: Pain, Mild (Pain Scale 1-3) Ascorbic Acid (Ascorbic Acid 500 Mg Tablet) 500 mg PO DAILY [facility] Last Admin: 12/11/22 09:13 Dose: Not Given Documented By: JOAN Non-Admin Reason: NPO Cyanocobalamin (Cyanocobalamin (Vitamin B-12) 100 Mcg Tablet) 50 mcg PO DAILY [facility] Last Admin: 12/11/22 09:13 Dose: Not Given Documented By: JOAN Non-Admin Reason: NPO Docusate Sodium (Docusate Sodium 100 Mg Capsule) 100 mg PO DAILY PRN PRN Reason: Constipation Enoxaparin Sodium (Enoxaparin Sodium 40 Mg/0.4 Ml Syringe) 40 mg SUBCUT Q24H [facility] Last Admin: 12/10/22 15:11 Dose: 40 mg Documented By: ANA ROSA Fentanyl (Fentanyl Citrate/Pf 100 Mcg/2 Ml Vial) 50 mcg IVPUSH Q5M PRN; Protocol PRN Reason: Pain, Moderate (Pain Scale 4-6 Gabapentin (Gabapentin 100 Mg Capsule) 100 mg PO TID [facility] Last Admin: 12/11/22 09:13 Dose: Not Given Documented By: JOAN Non-Admin Reason: NPO Glucose (Glucose Gel 15 Gm Gel..Gram.) 15 gm PO Q15M PRN; Protocol PRN Reason: per Hypoglycemia Standing Ord. Hydromorphone HCl (Hydromorphone Hcl 0.5 Mg/0.5 Ml Syringe) 0.5 mg IVPUSH Q5M PRN; Protocol PRN Reason: Pain, Severe (Pain Scale 7-10) Hydromorphone HCl (Hydromorphone Hcl 0.5 Mg/0.5 Ml Syringe) 0.5 mg IVPUSH Q3H PRN; Protocol PRN Reason: Pain, Severe (Pain Scale 7-10) Hydromorphone HCl (Hydromorphone Hcl 2 Mg Tablet) 2 mg PO Q6H PRN PRN Reason: Pain, Moderate (Pain Scale 4-6 Hydroxyzine HCl (Hydroxyzine Hcl 25 Mg Tablet) 25 mg PO QID PRN PRN Reason: Anxiety Last Admin: 12/08/22 16:49 Dose: 25 mg Documented By: ANA ROSA Cefepime HCl 2 gm/ Sodium (Chloride) 50 mls @ 100 mls/hr IV Q12H [facility] Last Infusion: 12/10/22 23:49 Dose: 0 mls/hr Documented By: NASRIN Dextrose (D10) 250 mls @ 750 mls/hr IV Q15M PRN; Protocol PRN Reason: per Hypoglycemia Standing Ord. Vancomycin HCl 1,250 mg/ (Sodium Chloride) 250 mls @ 166.667 mls/hr IV Q12H [facility] Last Infusion: 12/11/22 10:35 Dose: 0 mls/hr Documented By: JOAN Lactated Ringer's (Lr) 1,000 mls @ 100 mls/hr IVCONT .Q10H [facility] Promethazine HCl 6.25 mg/ (Sodium Chloride) 50.25 mls @ 201 mls/hr IV ONCE PRN PRN Reason: Nausea and Vomiting Insulin Human Lispro (Insulin Lispro 100 Unit/Ml 3 Ml Vial) 0 unit SUBCUT QIDACHS [facility]; Protocol Last Admin: 12/11/22 07:59 Dose: Not Given Documented By: JOAN Non-Admin Reason: No Insulin Coverage Lorazepam (Lorazepam 0.5 Mg Tablet) 0.5 mg PO Q4H PRN PRN Reason: Anxiety Last Admin: 12/11/22 08:52 Dose: 0.5 mg Documented By: JOAN Nicotine (Nicotine 21 Mg Patch.Td24) 21 mg TRANSDERMA DAILY [facility] Last Admin: 12/11/22 08:38 Dose: 21 mg Documented By: JOAN Ondansetron HCl (Ondansetron Hcl 4 Mg/2 Ml Vial) 4 mg IVPUSH Q8H PRN PRN Reason: Nausea and Vomiting Pharmacy Consult (Consult Rx Perform Med Rec) 1 each MISCELLANE ONCE PRN PRN Reason: Consult order Pharmacy Consult (Consult Rx Vancomycin Dosing) 1 each MISCELLANE DAILY PRN PRN Reason: Consult order Sodium Chloride (0.9 % Sodium Chloride Flush 3 Ml Syringe) 3 ml IVFLUSH QSHIFT [facility] Last Admin: 12/11/22 08:33 Dose: 3 ml Documented By: JOAN Vitamin D (Cholecalciferol (Vitamin D3) 25 Mcg Tablet) 50 mcg PO DAILY [facility] Last Admin: 12/11/22 09:13 Dose: Not Given Documented By: JOAN Non-Admin Reason: NPO Labs 12/11/22 05:08 12/11/22 05:08 Labs: Laboratory Results - last 24 hr 12/10/22 12/10/22 12/10/22 13:40 13:40 16:14 MCV MCH MCHC RDW Plt Count MPV Absolute Nucleated RBC Nucleated RBC % (auto) Anion Gap Estim Creat Clear Calc 106.1 Estimated GFR > 60 POC Glucose 126 H Random Glucose Calcium Random Vancomycin 18.0 12/10/22 12/11/22 12/11/22 19:14 05:08 05:08 MCV 85.5 MCH 28.8 MCHC 33.7 RDW 13.1 Plt Count 367 MPV 8.6 L Absolute Nucleated RBC 0.000 Nucleated RBC % (auto) 0.0 Anion Gap 16 Estim Creat Clear Calc 126.8 Estimated GFR > 60 POC Glucose 152 H Random Glucose 105 Calcium 9.2 Random Vancomycin 12/11/22 12/11/22 12/11/22 05:08 07:05 11:52 MCV MCH MCHC RDW Plt Count MPV Absolute Nucleated RBC Nucleated RBC % (auto) Anion Gap Estim Creat Clear Calc Estimated GFR POC Glucose 132 H 118 H Random Glucose Calcium Random Vancomycin 15.7 Microbiology Microbiology Results: Microbiology 12/08/22 12:02 Blood Culture - Preliminary Blood - Venous No growth after 48 hours. 12/08/22 11:57 Blood Culture - Preliminary Blood - Venous No growth after 48 hours. Assessment and Plan (1) Osteomyelitis: Status: Acute Assessment and Plan: d#4 47yo M with DM2 with hx ulcers, osteomyelitis + MSSA bacteremia s/p multiple toe amputations presenting with redness/swelling/ulcer of L 5th toe, admitted for osteomyelitis after failing outpt doxycycline # DM ulcer with osteomyelitis - d#4 vanco + cefepime, amputation today, follow BCx + intraop wound cx, ID consulted # anxiety - lorazepam + hydroxyzine # DM2, A1c 6.4 - correction-dose lispro # tobacco abuse - NRT # VTE ppx: LMWH # dispo: likely home with VNA eventually In my clinical judgment, the patient requires continued inpatient hospitalization for the following reasons: IV ABX, operative intervention Time Spent With Patient Time: Total time managing care of this patient today __35_ minutes. Quality Stroke Does the patient have a stroke diagnosis?: No VTE Prior VTE?: No VTE Risk Level:: Medical - moderate - high VTE Device Contraindication: Treatment Not Indicated VTE Drug Contraindication: N/A - Med Ordered
[2022-12-11] MEDS: cefEPime HCl 2 GM in 0.9 % Sodium Chloride 50 ML IV ×2 (12:25→23:15)
[2022-12-11] MEDS: Lactated Ringers 1,000 ML 100 ML IVCONT ×2 (13:28→21:38)
[2022-12-11] MEDS: Gabapentin 100 MG CAPSULE PO ×2 (15:08→21:38)
[2022-12-11] MEDS: Enoxaparin Sodium 40 MG/0.4 ML SYRINGE SUBCUT (15:08)
[2022-12-11 16:38] LABS: Glucose, Whole Blood 185 mg/dL (60-115)
[2022-12-11] MEDS: Insulin Lispro 100 UNIT/ML 3 ML VIAL SUBCUT (17:03)
[2022-12-11 20:58] LABS: Glucose, Whole Blood 151 mg/dL (60-115)
[2022-12-12] VITALS (7 sets, daily range): BP systolic 107–122; BP diastolic 68–76; PULSE 75–84; RESP 16–18; TEMP 36.3–36.7; O2SAT 96–99
[2022-12-12 07:58] LABS: Glucose, Whole Blood 124 mg/dL (60-115)
--- NOTE | 2022-12-12 08:24 | PM.PNGS ---
Subjective Subjective Date of Service: 12/12/22 Interval history: POD #1 s/p amputation of left 5th toe. Patient reports minimal to no pain this morning. Physical Exam Vital Signs: Vital Signs: Last Vital Signs Temp 98.0 F 12/12/22 08:00 Pulse 78 12/12/22 08:00 Resp 18 12/12/22 08:00 BP 117/70 12/12/22 08:00 Pulse Ox 98 12/12/22 08:00 O2 Del Method 12/12/22 08:00 BMI result Body Mass Index 29.7 Const: General: cooperative and no acute distress Nutritional Appearance: well nourished Orientation/consciousness: patient oriented x3 Limitations: no limitations Resp: Effort & Inspection: normal respiratory effort GI: Inspection: Yes normal to inspection Neuro: General: patient oriented x3 Extrem: Other: dressing changed. Bloody discharge noted on dressing. Wick removed and DSD applied. Patient tolerated well. Wounds are clean and intact without evidence of infection. Objective Data Active Medications Acetaminophen (Acetaminophen 325 Mg Tablet) 650 mg PO Q6H PRN PRN Reason: Pain, Mild (Pain Scale 1-3) Ascorbic Acid (Ascorbic Acid 500 Mg Tablet) [address] [facility] Last Admin: 12/11/22 09:13 Dose: Not Given Documented By: JOAN Non-Admin Reason: NPO Cyanocobalamin (Cyanocobalamin (Vitamin B-12) 100 Mcg Tablet) [address] [facility] Last Admin: 12/11/22 09:13 Dose: Not Given Documented By: JOAN Non-Admin Reason: NPO Docusate Sodium (Docusate Sodium 100 Mg Capsule) 100 mg PO DAILY PRN PRN Reason: Constipation Enoxaparin Sodium (Enoxaparin Sodium 40 Mg/0.4 Ml Syringe) [address] [facility] Last Admin: 12/11/22 15:08 Dose: 40 mg Documented By: JOAN Fentanyl (Fentanyl Citrate/Pf 100 Mcg/2 Ml Vial) 50 mcg IVPUSH Q5M PRN; Protocol PRN Reason: Pain, Moderate (Pain Scale 4-6 Gabapentin (Gabapentin 100 Mg Capsule) [address] [facility] Last Admin: 12/11/22 21:38 Dose: 100 mg Documented By: GAY Glucose (Glucose Gel 15 Gm Gel..Gram.) 15 gm PO Q15M PRN; Protocol PRN Reason: per Hypoglycemia Standing Ord. Hydromorphone HCl (Hydromorphone Hcl 0.5 Mg/0.5 Ml Syringe) 0.5 mg IVPUSH Q5M PRN; Protocol PRN Reason: Pain, Severe (Pain Scale 7-10) Hydromorphone HCl (Hydromorphone Hcl 0.5 Mg/0.5 Ml Syringe) 0.5 mg IVPUSH Q3H PRN; Protocol PRN Reason: Pain, Severe (Pain Scale 7-10) Hydromorphone HCl (Hydromorphone Hcl 2 Mg Tablet) 2 mg PO Q6H PRN PRN Reason: Pain, Moderate (Pain Scale 4-6 Hydroxyzine HCl (Hydroxyzine Hcl 25 Mg Tablet) 25 mg PO QID PRN PRN Reason: Anxiety Last Admin: 12/08/22 16:49 Dose: 25 mg Documented By: ANA ROSA Cefepime HCl 2 gm/ Sodium (Chloride) 50 mls @ 100 mls/hr IV Q12H [facility] Last Infusion: 12/11/22 23:45 Dose: 0 mls/hr Documented By: GAY Dextrose (D10) 250 mls @ 750 mls/hr IV Q15M PRN; Protocol PRN Reason: per Hypoglycemia Standing Ord. Vancomycin HCl 1,250 mg/ (Sodium Chloride) 250 mls @ 166.667 mls/hr IV Q12H [facility] Last Infusion: 12/11/22 21:25 Dose: 0 mls/hr Documented By: GAY Lactated Ringer's (Lr) 1,000 mls @ 100 mls/hr IVCONT .Q10H [facility] Last Admin: 12/11/22 21:38 Dose: 100 mls/hr Documented By: GAY Promethazine HCl 6.25 mg/ (Sodium Chloride) 50.25 mls @ 201 mls/hr IV ONCE PRN PRN Reason: Nausea and Vomiting Insulin Human Lispro (Insulin Lispro 100 Unit/Ml 3 Ml Vial) [address] [facility]; Protocol Last Admin: 12/12/22 08:02 Dose: Not Given Documented By: JOAN Non-Admin Reason: No Insulin Coverage Lorazepam (Lorazepam 0.5 Mg Tablet) 0.5 mg PO Q4H PRN PRN Reason: Anxiety Last Admin: 12/11/22 21:38 Dose: 0.5 mg Documented By: GAY Nicotine (Nicotine 21 Mg Patch.Td24) [address] [facility] Last Admin: 12/11/22 08:38 Dose: 21 mg Documented By: JOAN Ondansetron HCl (Ondansetron Hcl 4 Mg/2 Ml Vial) 4 mg IVPUSH Q8H PRN PRN Reason: Nausea and Vomiting Pharmacy Consult (Consult Rx Perform Med Rec) 1 each MISCELLANE ONCE PRN PRN Reason: Consult order Pharmacy Consult (Consult Rx Vancomycin Dosing) 1 each MISCELLANE DAILY PRN PRN Reason: Consult order Sodium Chloride (0.9 % Sodium Chloride Flush 3 Ml Syringe) [address] [facility] Last Admin: 12/11/22 23:54 Dose: Not Given Documented By: GAY Non-Admin Reason: IV Running Vitamin D (Cholecalciferol (Vitamin D3) 25 Mcg Tablet) [address] [facility] Last Admin: 12/11/22 09:13 Dose: Not Given Documented By: JOAN Non-Admin Reason: NPO Labs 12/11/22 05:08 12/11/22 05:08 Labs: Laboratory Results - last 24 hr 12/11/22 12/11/22 12/11/22 11:52 16:27 20:20 POC Glucose 118 H 185 H 151 H 12/12/22 07:23 POC Glucose 124 H Bone gram stain: 1+ gm + cocci. Culture pending Microbiology Microbiology Results: Microbiology 12/11/22 Unknown Gram Stain - Final Bone 12/11/22 Unknown Gram Stain - Final Toe Left Fifth Procedures Date of Service Date of Service: 12/12/22 Progress Note: A&P Assessment and plan (1) Bacteremia due to Streptococcus: Status: Acute (2) 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: Status: Acute Plan POD #1 s/p left 5th toe amp. Gm + cocci on gram stain. Await final cultures. Wounds are clean and intact. Antibiotic management as per medical team. Time Spent With Patient Time: Total time managing care of this patient today ____ minutes. Quality Stroke Does the patient have a stroke diagnosis?: No VTE Prior VTE?: No VTE Risk Level:: Medical - moderate - high VTE Device Contraindication: Treatment Not Indicated VTE Drug Contraindication: N/A - Med Ordered
[2022-12-12] MEDS: Gabapentin 100 MG CAPSULE PO ×3 (08:27→19:50)
[2022-12-12] MEDS: Ascorbic Acid 500 MG TABLET PO (08:27)
[2022-12-12] MEDS: Cyanocobalamin (Vitamin B-12) 100 MCG TABLET 50 MCG PO (08:27)
[2022-12-12] MEDS: Cholecalciferol (Vitamin D3) 25 MCG TABLET 50 MCG PO (08:28)
[2022-12-12] MEDS: vancomycin HCL 1,250 MG in 0.9 % Sodium Chloride 250 ML 166.67 MG IV ×2 (08:39→19:50)
[2022-12-12] MEDS: Nicotine 21 MG PATCH.TD24 TRANSDERMA (08:57)
--- NOTE | 2022-12-12 11:23 | P.PNIM_ITS ---
Subjective Subjective Date of Service: 12/12/22 Interval History: POD#1, no pain no fever Review of Systems Review of Systems: Yes all other systems are reviewed and are negative Physical Exam Vital Signs: Vital Signs: Last Vital Signs Temp 98.0 F 12/12/22 08:00 Pulse 78 12/12/22 08:00 Resp 18 12/12/22 08:00 BP 117/70 12/12/22 08:00 Pulse Ox 98 12/12/22 08:00 O2 Del Method 12/12/22 08:00 BMI result Body Mass Index 29.7 Gen: in no acute distress HEENT: sclera anicteric, moist mucus membranes Neck: supple Lungs: clear to auscultation bilaterally Heart: regular rate and rhythm, no murmurs Abd: soft, non-tender, non-distended Ext: no edema Skin: warm/well-perfused, L foot in dry dressing changed by surgeon this morning Neuro: alert and oriented x3, no focal findings Psych: appropriate affect Objective Data Active Medications Acetaminophen (Acetaminophen 325 Mg Tablet) 650 mg PO Q6H PRN PRN Reason: Pain, Mild (Pain Scale 1-3) Ascorbic Acid (Ascorbic Acid 500 Mg Tablet) 500 mg PO DAILY [facility] Last Admin: 12/12/22 08:27 Dose: 500 mg Documented By: JOAN Cyanocobalamin (Cyanocobalamin (Vitamin B-12) 100 Mcg Tablet) 50 mcg PO DAILY [facility] Last Admin: 12/12/22 08:27 Dose: 50 mcg Documented By: JOAN Docusate Sodium (Docusate Sodium 100 Mg Capsule) 100 mg PO DAILY PRN PRN Reason: Constipation Enoxaparin Sodium (Enoxaparin Sodium 40 Mg/0.4 Ml Syringe) 40 mg SUBCUT Q24H [facility] Last Admin: 12/11/22 15:08 Dose: 40 mg Documented By: JOAN Fentanyl (Fentanyl Citrate/Pf 100 Mcg/2 Ml Vial) 50 mcg IVPUSH Q5M PRN; Protocol PRN Reason: Pain, Moderate (Pain Scale 4-6 Gabapentin (Gabapentin 100 Mg Capsule) 100 mg PO TID [facility] Last Admin: 12/12/22 08:27 Dose: 100 mg Documented By: JOAN Glucose (Glucose Gel 15 Gm Gel..Gram.) 15 gm PO Q15M PRN; Protocol PRN Reason: per Hypoglycemia Standing Ord. Hydromorphone HCl (Hydromorphone Hcl 0.5 Mg/0.5 Ml Syringe) 0.5 mg IVPUSH Q5M PRN; Protocol PRN Reason: Pain, Severe (Pain Scale 7-10) Hydromorphone HCl (Hydromorphone Hcl 0.5 Mg/0.5 Ml Syringe) 0.5 mg IVPUSH Q3H PRN; Protocol PRN Reason: Pain, Severe (Pain Scale 7-10) Hydromorphone HCl (Hydromorphone Hcl 2 Mg Tablet) 2 mg PO Q6H PRN PRN Reason: Pain, Moderate (Pain Scale 4-6 Hydroxyzine HCl (Hydroxyzine Hcl 25 Mg Tablet) 25 mg PO QID PRN PRN Reason: Anxiety Last Admin: 12/08/22 16:49 Dose: 25 mg Documented By: ANA ROSA Cefepime HCl 2 gm/ Sodium (Chloride) 50 mls @ 100 mls/hr IV Q12H [facility] Last Infusion: 12/11/22 23:45 Dose: 0 mls/hr Documented By: GAY Dextrose (D10) 250 mls @ 750 mls/hr IV Q15M PRN; Protocol PRN Reason: per Hypoglycemia Standing Ord. Vancomycin HCl 1,250 mg/ (Sodium Chloride) 250 mls @ 166.667 mls/hr IV Q12H [facility] Last Infusion: 12/12/22 11:01 Dose: 0 mls/hr Documented By: JOAN Promethazine HCl 6.25 mg/ (Sodium Chloride) 50.25 mls @ 201 mls/hr IV ONCE PRN PRN Reason: Nausea and Vomiting Insulin Human Lispro (Insulin Lispro 100 Unit/Ml 3 Ml Vial) 0 unit SUBCUT QIDACHS [facility]; Protocol Last Admin: 12/12/22 08:02 Dose: Not Given Documented By: JOAN Non-Admin Reason: No Insulin Coverage Lorazepam (Lorazepam 0.5 Mg Tablet) 0.5 mg PO Q4H PRN PRN Reason: Anxiety Last Admin: 12/11/22 21:38 Dose: 0.5 mg Documented By: GAY Nicotine (Nicotine 21 Mg Patch.Td24) 21 mg TRANSDERMA DAILY [facility] Last Admin: 12/12/22 08:57 Dose: 21 mg Documented By: JOAN Ondansetron HCl (Ondansetron Hcl 4 Mg/2 Ml Vial) 4 mg IVPUSH Q8H PRN PRN Reason: Nausea and Vomiting Pharmacy Consult (Consult Rx Perform Med Rec) 1 each MISCELLANE ONCE PRN PRN Reason: Consult order Pharmacy Consult (Consult Rx Vancomycin Dosing) 1 each MISCELLANE DAILY PRN PRN Reason: Consult order Sodium Chloride (0.9 % Sodium Chloride Flush 3 Ml Syringe) 3 ml IVFLUSH QSHIFT [facility] Last Admin: 12/12/22 08:30 Dose: Not Given Documented By: JOAN Non-Admin Reason: IV Running Vitamin D (Cholecalciferol (Vitamin D3) 25 Mcg Tablet) 50 mcg PO DAILY [facility] Last Admin: 12/12/22 08:28 Dose: 50 mcg Documented By: JOAN Labs 12/11/22 05:08 12/11/22 05:08 Labs: Laboratory Results - last 24 hr 12/11/22 12/11/22 12/11/22 11:52 16:27 20:20 POC Glucose 118 H 185 H 151 H 12/12/22 07:23 POC Glucose 124 H Microbiology Microbiology Results: Microbiology 12/11/22 Unknown Gram Stain - Final Bone Routine Culture - Preliminary Culture in progress. Anaerobic Culture - Preliminary Culture in progress. 12/11/22 Unknown Gram Stain - Final Toe Left Fifth Routine Culture - Preliminary Culture in progress. Anaerobic Culture - Preliminary Culture in progress. Assessment and Plan (1) Osteomyelitis: Status: Acute Assessment and Plan: d#5 47yo M with DM2 with hx ulcers, osteomyelitis + MSSA bacteremia s/p multiple toe amputations presenting with redness/swelling/ulcer of L 5th toe, admitted for osteomyelitis after failing outpt doxycycline # DM ulcer with acute osteomyelitis - d#5 vanco + cefepime, POD#1 amputation of L 5th toe, BCx negative, follow intraoperative bone culture and discuss results with ID for transition to PO antibiotics upon discharge # anxiety - lorazepam + hydroxyzine # DM2, A1c 6.4 - correction-dose lispro # tobacco abuse - NRT # VTE ppx: LMWH # dispo: likely home with VNA tomorrow In my clinical judgment, the patient requires continued inpatient hospitalization for the following reasons: IV ABX, postoperative care Time Spent With Patient Time: Total time managing care of this patient today ____ minutes. 35 Quality Stroke Does the patient have a stroke diagnosis?: No VTE Prior VTE?: No VTE Risk Level:: Medical - moderate - high VTE Device Contraindication: Treatment Not Indicated VTE Drug Contraindication: N/A - Med Ordered
[2022-12-12 11:30] LABS: Glucose, Whole Blood 128 mg/dL (60-115)
[2022-12-12] MEDS: cefEPime HCl 2 GM in 0.9 % Sodium Chloride 50 ML IV ×2 (13:39→23:50)
--- NOTE | 2022-12-12 13:43 | HO.POSTANES ---
Post Anesthesia Evaluation Post Anesthesia Evaluation Vital Signs: Vital Signs Temp Pulse Resp BP Pulse Ox O2 Del Method 12/12/22 12:00 96 Room Air 12/12/22 11:59 98.1 F 76 18 120/76 96 Room Air 12/12/22 11:31 98.1 F 77 18 120/76 97 Room Air 12/12/22 08:00 98.0 F 78 18 117/70 98 Room Air Anesthesia: General Mental Status: Awake Pain Control: Satisfactory Nausea/Vomiting: None Hydration: Adequate Anesthesia-Related Issues: No Anes. Related Issues
[2022-12-12] MEDS: 0.9 % Sodium Chloride Flush 3 ML SYRINGE IVFLUSH ×2 (16:03→23:50)
[2022-12-12] MEDS: Enoxaparin Sodium 40 MG/0.4 ML SYRINGE SUBCUT (16:03)
[2022-12-12 16:28] LABS: Glucose, Whole Blood 137 mg/dL (60-115)
[2022-12-12 18:30] LABS: Vancomycin Trough 15.7 mcg/mL (10.0-20.0)
[2022-12-12 18:31] LABS: Estimated Glomerular Filt Rate > 60
--- NOTE | 2022-12-12 18:38 | HE.PHANOTE ---
Vancomycin Dosing Addendum Patients level came back at 15.7 mg/L. Will continue with dose at 1250 mg Q12H. Next draw to be 12/13 @1800. Renal function stable
[2022-12-12 20:36] LABS: Glucose, Whole Blood 182 mg/dL (60-115)
[2022-12-12] MEDS: Insulin Lispro 100 UNIT/ML 3 ML VIAL SUBCUT (20:54)
[2022-12-12 23:54] LABS: Glucose, Whole Blood 98 mg/dL (60-115)
[2022-12-12] MEDS: LORazepam 0.5 MG TABLET PO (23:59)
[2022-12-13 07:55] VITALS: BP 102/69; PULSE 78; RESP 18; TEMP 36.5; O2SAT 97
[2022-12-13 07:55] LABS: Glucose, Whole Blood 126 mg/dL (60-115)
[2022-12-13] MEDS: Cyanocobalamin (Vitamin B-12) 100 MCG TABLET 50 MCG PO (08:52)
[2022-12-13] MEDS: LORazepam 0.5 MG TABLET PO (08:52)
[2022-12-13] MEDS: Nicotine 21 MG PATCH.TD24 TRANSDERMA (08:54)
[2022-12-13] MEDS: Ascorbic Acid 500 MG TABLET PO (08:54)
[2022-12-13] MEDS: Gabapentin 100 MG CAPSULE PO (08:54)
[2022-12-13] MEDS: Cholecalciferol (Vitamin D3) 25 MCG TABLET 50 MCG PO (08:54)
[2022-12-13] MEDS: vancomycin HCL 1,250 MG in 0.9 % Sodium Chloride 250 ML 166.67 MG IV (09:11)
--- NOTE | 2022-12-13 11:16 | MHC.CLN ---
NUTRITION CONSULT FOR DIABETIC MEAL CHOICES. PATIENT DOES NOT AGREE WITH DIABETIC MENU CHOICES. FOLLOWS HIGH FAT, HIGH PROTEIN DIET AT HOME WITH VERY LITTLE CARBS. ENCOURAGED TO MAKE MENU SELECTIONS SUCH THE CHICKEN, FISH, LEAN PORK CHOICES THAT ARE ALWAYS AVAILABLE. DISCUSSED A1C=6.4 ON 12/09/22. PATIENT VERY PLEASED THAT A1C HAS GONE DOWN. ANTICIPATES DISCHARGE TODAY.
--- NOTE | 2022-12-13 11:17 | P.DS_ITS ---
DS: Providers Provider Date of Service: 12/13/22 Date of admission: 12/08/22 14:00 Date of discharge: 12/13/22 Primary care physician: STEPHANIE Marti Consults: 12/08/22 14:12 Consult to General Surgery Routine Consulting Provider: [facility] Reason for consultation: Osteomyelitis of left 5th toe Has provider been notified: Yes 12/08/22 14:13 Consult to Infectious Diseases Routine Consulting Provider: [facility] Reason for consultation: Osteomyelitis of left 5th toe DS: Diagnosis Discharge Diagnosis (1) Osteomyelitis: Status: Acute DS: Summary Hospital Course Hospital Course: ?47-year-old male with a PMH significant for?diabetes, diabetic foot ulcers, history of osteomyelitis with multiple toe amputations, anxiety HTN, HLD, and PTSD who presents to the ED with?increased redness and swelling of his left 5th toe.? Patient had the 3rd and 4th digits of his left toe amputated on 10/11/2022, wound VAC placed on area on an off over the ensuing month. One week ago pt noticed redness and warmth of left 5th digit.? Was evaluated at [facility] and treated with doxycycline to little effect.? Redness, swelling, pain continue to increase, went to wound care clinic this morning.? Seen by Dr. Green who sent him to the ED for admission to the hospital.? Patient denies fever, chills, nausea, vomiting.? No night sweats.? Denies chest pain/pressure, palpitations.? No shortness of breath.? Denies abdominal pain.? Patient notes he is feeling much more anxious than normal, which tends to occur in hospital settings with him. In the ED patient was afebrile, slightly hypotensive 98/54. Labs were significant for leukocytosis of 14.1, ESR pending, C reactive protein 7.3. CXR showed increased swelling and subcutaneous air in the 5th digit and increased limb disease in the distal head of the 5th metatarsal and distal head of the 4th metatarsal, suggestive of osteomyelitis. Pt was treated with vanco and cefepime. Pt will be admitted to the hospital for treatment of further evaluation of osteomyelitis of the 5th left toe secondary to chronic diabetic foot ulcer. Hospital Course Patient admitted to general medical floor and started on vancomycin and cefepime. On 12/08, he was seen in consultation by General surgery and on 12/11 underwent amputation of the left 5th toe. Postop period was uneventful. He was seen in consultation by ID; blood cultures negative times 48 hours; ID recommends 10 days of doxycycline and Ceftin. Per patient he has follow-up with the wound clinic for which he has been very compliant at his admission and ap pointment scheduled with his PCP. He will be given a course of Ceftin doxy will follow-up as scheduled Time Spent with Patient Time attestation: Total time managing care of this patient today ____ minutes. Discharge coordination time: Greater than 30 minutes Quality: Safe Use of Opioids Does Pt have an Active Cancer Diagnosis on the Problem List?: No Quality: Stroke Does the patient have a stroke diagnosis?: No Physical Exam Vital Signs: Vital Signs: Last Vital Signs Temp 97.7 F 12/13/22 07:55 Pulse 78 12/13/22 07:55 Resp 18 12/13/22 07:55 BP 102/69 12/13/22 07:55 Pulse Ox 97 12/13/22 07:55 O2 Del Method 12/13/22 07:55 BMI result Body Mass Index 29.7 Const: Other: Awake alert no acute distress Resp: Other: Clear to auscultation bilaterally no rales rhonchi or wheezes Cardio: Other: No S4; positive S1-S2; no S3 murmurs or gallops GI: Other: Soft nontender nondistended normoactive bowel sounds Extrem: Other: Bulky dressing left foot no edema bilaterally DS: Data Data Completed and Pending Completed studies during hospitalization [Text1]: Procedures Insertion of Infusion Device into Superior Vena Cava, Percutaneous Approach (11/04/21) Pending studies at discharge: Pending at discharge 12/11/22 10:57 Surgical [PTH] Routine Labs on day of discharge: Laboratory Results - last 24 hr 12/12/22 12/12/22 12/12/22 11:15 16:19 18:06 Creatinine 0.80 Estim Creat Clear Calc 130.0 Estimated GFR > 60 POC Glucose 128 H 137 H Vancomycin Trough 12/12/22 12/12/22 12/12/22 18:07 20:30 23:50 Creatinine Estim Creat Clear Calc Estimated GFR POC Glucose 182 H 98 Vancomycin Trough 15.7 12/13/22 07:52 Creatinine Estim Creat Clear Calc Estimated GFR POC Glucose 126 H Vancomycin Trough Preliminary micro results at discharge 12/11/22 Unknown Routine Culture - Preliminary Toe Left Fifth Group G streptococcus Anaerobic Culture - Preliminary Culture in progress. 12/11/22 Unknown Routine Culture - Preliminary Bone Culture in progress. Anaerobic Culture - Preliminary Culture in progress. 12/08/22 12:02 Blood Culture - Preliminary Blood - Venous No growth after 48 hours. 12/08/22 11:57 Blood Culture - Preliminary Blood - Venous No growth after 48 hours. Discharge Plan Discharge Anticipated Discharge Date/Time: 12/13/22 11:04 Patient Disposition: Home, Self-Care Discharge Diagnosis: left fifth toe osteomyelitis Referrals: Suaznne De Paz, STEPHANIE [Primary Care Provider] - 1 Week Discharge Medications: New doxycycline hyclate 100 mg tablet 100 mg PO BID Qty: 20 0RF cefuroxime axetil 500 mg tablet 500 mg PO BID 10 Days Qty: 20 0RF Continued cholecalciferol (vitamin D3) 50 mcg (2,000 unit) Capsule 50 mcg PO DAILY metformin 500 mg Tablet 500 mg PO BID gabapentin 100 mg Capsule 100 mg PO TID glipizide 5 mg Tablet 10 mg PO DAILY Trulicity 1.5 mg/0.5 mL Pen Injector 1.5 mg SUBCUT ALMENDAREZ ascorbic acid (vitamin C) 500 mg Tablet 500 mg PO DAILY cyanocobalamin (vitamin B-12) 50 mcg Tablet 50 mcg PO DAILY hydroxyzine HCl 25 mg tablet 25 mg PO QID PRN (Reason: Anxiety) No Action doxycycline hyclate 100 mg capsule 100 mg PO BID Qty: 20 0RF Rx Instructions: patient states that he has 2 doses left on his therapy Discharge Orders: Discharge Order (Routine); Ordered 12/13/22 Ordered By: Behzad Madrid Diet: Advance to usual diet Activity on Discharge: As tolerated Stand Alone Forms: Patient Portal Discharge page Care Plan Goals: Complete course of doxycycline 100 mg twice daily along with Ceftin 500 mg twice daily for 10 days Health Concerns: Follow-up with wound care as scheduled at Plan of Treatment: Dressings as per Wound Care; follow-up with PCP 2 weeks Assessment: See discharge summary
[2022-12-13 11:33] LABS: Glucose, Whole Blood 200 mg/dL (60-115)
--- NOTE | 2022-12-13 11:33 | MHC.CM.PN ---
pt dcd home no skilled servxies ordered by
[2022-12-13] MEDS: Insulin Lispro 100 UNIT/ML 3 ML VIAL SUBCUT (11:57)
--- NOTE | 2022-12-13 12:04 | MHC.CM.PN ---
pt dcd with resumption of hvns
== END 2022-12-13 13:21 | disposition home health service (06) | DRG 314 ==
LOC: HO.ED 12:14 → HO.EDOVER 14:11 → HO.S3 14:18
PROVIDERS: Family Medicine; Surgery; Admitting Provider Student in an Organized Health Care Education/Training Program; Emergency Provider Emergency Medicine; PCP Nurse Practitioner Family; Visit Provider Hospitalist
PROC: 0Y6Y0Z0 Detachment at Left 5th Toe, Complete, Open Approach (ICD-10-PCS; principal; 2022-12-11 09:30)
DX: E11.69 Type 2 diabetes mellitus with other specified complication (principal); M86.172 Other acute osteomyelitis, left ankle and foot; E78.5 Hyperlipidemia, unspecified; F17.210 Nicotine dependence, cigarettes, uncomplicated; F43.10 Post-traumatic stress disorder, unspecified; F41.9 Anxiety disorder, unspecified; K21.9 Gastro-esophageal reflux disease without esophagitis; Z20.822 Contact with and (suspected) exposure to COVID-19; E11.621 Type 2 diabetes mellitus with foot ulcer; B95.62 Methicillin resistant Staphylococcus aureus infection as the cause of diseases classified elsewhere; B95.4 Other streptococcus as the cause of diseases classified elsewhere; L97.526 Non-pressure chronic ulcer of other part of left foot with bone involvement without evidence of necrosis; Z71.6 Tobacco abuse counseling; Z88.0 Allergy status to penicillin; Z88.5 Allergy status to narcotic agent; Z79.84 Long term (current) use of oral hypoglycemic drugs; Z79.899 Other long term (current) drug therapy
CPT/HCPCS: 36415; 73630; 80048; 80076; 80202; 82565; 82947; 83036; 83605; 85025; 85027; 85610; 85652; 85730; 86140; 87040; 87070; 87073; 87077; 87147; 87186; 87205; 87635; 88305; 88311; 99285; J0692; J1650; J2060; J2250; J2405; J2765; J3010; J3370; J3371

== ENCOUNTER → 2022-12-29 09:43 | Outpatient (BNVA) | payer OTHER, SELFPAY | PROVIDERS: Visit Provider Surgery ==

== ENCOUNTER 2023-01-05 16:03 | Outpatient (REF) | payer OTHER, SELFPAY | END 2023-01-05 16:04 | disposition home or self-care (01) | LOC: HO.LNP 16:03 | PROVIDERS: Visit Provider Physician Assistant | DX: S91.302A Unspecified open wound, left foot, initial encounter (principal); T87.89 Other complications of amputation stump; X58.XXXA Exposure to other specified factors, initial encounter; Y93.9 Activity, unspecified; Y92.9 Unspecified place or not applicable; Y99.9 Unspecified external cause status | CPT/HCPCS: 87070; 87077; 87186; 87205 ==

== ENCOUNTER → 2023-01-12 10:58 | Outpatient (BNVA) | payer OTHER, SELFPAY | PROVIDERS: PCP Nurse Practitioner Family; Visit Provider Surgery ==

== ENCOUNTER 2023-01-19 18:56 | Inpatient (IN) | payer OTHER, SELFPAY ==
--- NOTE | ~2023-01-19 | CT_ITS ---
EXAMINATION: CT ABDOMEN AND PELVIS WITH CONTRAST CLINICAL INFORMATION: Upper abdominal pain COMPARISON: 01/18/2012 TECHNIQUE: Multidetector volumetric imaging was performed from the superior aspect of the liver through the pubic symphysis following administration of 85 mL Omnipaque 300 intravenous contrast. Sagittal and coronal reformatted images were obtained on the technologist workstation.. This CT examination was performed using dose optimization techniques as appropriate, variously including the following: *Automated exposure control *Adjustment of mA and/or kV according to patient size (this includes techniques or standardized protocols for targeted exams where dose is matched to indication/reason for exam; i.e. extremities or head) *Use of iterative reconstruction technique DLP: 627 mGy-cm FINDINGS: LUNG BASES: The visualized lung bases are unremarkable. Small hiatal hernia LIVER, GALLBLADDER, AND BILIARY TREE: The liver is normal in size, shape, and attenuation. No focal hepatic lesion or biliary ductal dilatation is present. Status post cholecystectomy PANCREAS: Unremarkable. SPLEEN: Unremarkable. ADRENAL GLANDS: Mild fullness to the adrenal glands but no discrete nodularity KIDNEYS AND URETERS: The kidneys are normal in size, shape, and attenuation. No hydronephrosis, hydroureter, or calculi seen. No perinephric stranding. BLADDER: Unremarkable. GASTROINTESTINAL TRACT: The small and large bowel are unremarkable. The appendix is unremarkable. Stomach is decompressed and difficult to assess. Small hiatal hernia is seen ABDOMINAL WALL: No significant hernia is appreciated. LYMPHOVASCULAR STRUCTURES: Mild vascular calcification is seen within the aorta iliac system. No bulky adenopathy PELVIC VISCERA: Unremarkable. OSSEOUS STRUCTURES: Degenerative changes at L5/S1 CT/CT abdomen pelvis w IV con IMPRESSION: No acute intra-abdominal process seen. Status post cholecystectomy. Small hiatal hernia.
--- NOTE | ~2023-01-19 | XR_ITS ---
EXAMINATION: XR FOOT, LEFT CLINICAL INFORMATION: Bone erosion. COMPARISON: Radiograph of the left foot 12/08/2022. TECHNIQUE: AP, lateral, and oblique views of the left foot. FINDINGS: Amputation of the third through fifth toes at the level of the distal metatarsals. Irregular cortical appearance of the amputated borders of the fourth and fifth metatarsals with overlying soft tissue thickening and laceration, concerning for osteomyelitis. Radiopacities in the superficial soft tissues adjacent to the fourth and fifth metatarsals are nonspecific, could be related with foreign bodies. There are additional cortical irregularities in the lateral surface of the proximal fifth metatarsal. Hallux valgus deformity. No acute fractures. XR/XR foot LT 2V IMPRESSION: Erosive cortical changes of the amputated borders of the fourth and fifth metatarsals and erosive changes in the proximal fifth metatarsal, concerning for osteomyelitis.
--- NOTE | 2023-01-19 18:57 | ECG_ITS ---
Test Reason : chest pain Blood Pressure : / mmHG Vent. Rate : 126 BPM Atrial Rate : 126 BPM P-R Int : 120 ms QRS Dur : 088 ms QT Int : 324 ms P-R-T Axes : 074 013 062 degrees QTc Int : 469 ms Sinus tachycardia Biatrial enlargement Anterolateral infarct (cited on or before 23-JUL-2019) Abnormal ECG When compared with ECG of 03-NOV-2021 11:04, No significant changes seen Referred By: Christos Barton Electronically Signed By:ESTELA ALSTON
[2023-01-19 19:06] VITALS: BP 143/74; PULSE 135; RESP 24; TEMP 36.8; O2SAT 98; BMI 29.3
--- NOTE | 2023-01-19 19:10 | ED.GENADULT ---
HPI - General Adult General Chief complaint: Abdominal Pain <Christos Barton - Last Filed: 01/19/23 19:13> Stated complaint: chest pain <Christos Barton - Last Filed: 01/19/23 19:13> Time Seen by Provider: 01/19/23 19:20 <Christos Barton - Last Filed: 01/19/23 19:13> Source: patient <Aidan Varma MD - Last Filed: 01/20/23 02:14> Mode of arrival: ambulatory <Aidan Varma MD - Last Filed: 01/20/23 02:14> Limitations: no limitations <Aidan Varma MD - Last Filed: 01/20/23 02:14> History of Present Illness HPI narrative: Patient complaining of abdominal pain with nausea and vomiting started earlier today patient has a diabetic wound of left 5th toe on 12/11 status post amputation on Levaquin and Flagyl comes here for increased epigastric pain nausea vomiting all day. No fever no chills denies any significant discharge from the wound <Aidan Varma MD - Last Filed: 01/20/23 02:14> Related Data Home medications: Home Medications Medication Instructions Recorded Confirmed cholecalciferol (vitamin D3) 50 50 mcg PO DAILY 11/04/21 01/19/23 mcg (2,000 unit) capsule hydroxyzine HCl 25 mg tablet 25 mg PO QID PRN Anxiety 09/14/22 12/08/22 gabapentin 100 mg capsule 100 mg PO TID 10/06/22 01/19/23 metformin 500 mg tablet 500 mg PO BID 10/06/22 12/08/22 ascorbic acid (vitamin C) 500 mg 500 mg PO DAILY 11/29/22 01/19/23 tablet dulaglutide 1.5 mg/0.5 mL 1.5 mg subcut ALMENDAREZ 11/29/22 12/08/22 subcutaneous pen injector (Trulicity) glipizide 5 mg tablet 10 mg PO DAILY 11/29/22 01/19/23 cyanocobalamin (vitamin B-12) 50 50 mcg PO DAILY 12/08/22 01/19/23 mcg tablet Previous Rx's Medication Instructions Recorded doxycycline hyclate 100 mg capsule 100 mg PO BID #20 caps 11/29/22 cefuroxime axetil 500 mg tablet 500 mg PO BID 10 days #20 tabs 12/13/22 doxycycline hyclate 100 mg tablet 100 mg PO BID #20 tabs 12/13/22 hydromorphone 2 mg tablet 2 mg PO Q8H PRN pain (scale score 01/12/23 (Dilaudid) 7-10) #20 tabs levofloxacin 500 mg tablet 500 mg PO DAILY 10 days #10 tabs 01/12/23 metronidazole 500 mg tablet 500 mg PO Q8H 10 days #30 tabs 01/12/23 <Christos Barton - Last Filed: 01/19/23 19:13> Allergies/adverse reactions: Allergies Allergy/AdvReac Type Severity Reaction Status Date / Time amoxicillin [AMOXICILLIN] Allergy Severe ANAPHYLAXIS Verified 01/19/23 19:10 oxycodone [From Tylox] Allergy Intermediate Itching Verified 01/19/23 19:10 hydrocodone [HYDROCODONE] Allergy Unknown UNKNOWN Verified 01/19/23 19:10 <Christos Barton - Last Filed: 01/19/23 19:13> Review of Systems Review of Systems: Yes all other systems are reviewed and are negative <Aidan Varma MD - Last Filed: 01/20/23 02:14> [facility] Past Medical History Medical History: Medical History Acidosis, lactic Anxiety Bacteremia due to Streptococcus Bacterial infection due to Streptococcus, group C Cellulitis Diabetes type 2, controlled 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 GERD (gastroesophageal reflux disease) Marijuana smoker MRSA (methicillin resistant Staphylococcus aureus) Posttraumatic stress disorder Right foot infection Staphylococcus aureus bacteremia <Christos Barton - Last Filed: 01/19/23 19:13> Surgical History: Surgical History History of amputation (12/11/22) History of incision and drainage History of laparoscopic cholecystectomy History of partial amputation of toe (10/11/22) <Christos Barton - Last Filed: 01/19/23 19:13> Social History Social History: Social History Household Members: None Housing: Apartment Do you presently have visiting nurse or other home services: Yes Alcohol intake: never Patient Tobacco Use Status: Refuse Tobacco use screen Tobacco use type: Cigarette Cigarette Packs Per Day: 1 Cigarettes Per Day: 10 Years Smoked: 36 years Second Hand Smoke Exposure: No Substance Use Type: Marijuana Advance Directives: No Advance Directives Information Provided: No Nutrition Risks: No Nutritional Risk service: No Current occupational status: disabled <Christos Barton - Last Filed: 01/19/23 19:13> Physical Exam ED Vital Signs: Vital Signs - 24 hr 01/19/23 19:06 01/19/23 21:03 01/19/23 22:21 Temperature 98.2 F 98.1 F Pulse Rate 135 H 111 H 107 H Respiratory Rate 24 H 16 19 Blood Pressure 143/74 H 138/75 141/77 H Pulse Oximetry 98 97 97 Oxygen Delivery Method Room Air Room Air Room Air BMI result Body Mass Index 29.3 <Christos Barton - Last Filed: 01/19/23 19:13> Vital Signs - 24 hr 01/19/23 19:06 01/19/23 21:03 01/19/23 22:21 Temperature 98.2 F 98.1 F Pulse Rate 135 H 111 H 107 H Respiratory Rate 24 H 16 19 Blood Pressure 143/74 H 138/75 141/77 H Pulse Oximetry 98 97 97 Oxygen Delivery Method Room Air Room Air Room Air BMI result Body Mass Index 29.3 <Aidan Varma MD - Last Filed: 01/20/23 02:14> Appearance: Alert. Oriented X3. Moderate distress anxious Eyes: PERRLA, No Nystagmus ENT: Pharynx normal. Oral Mucosa moist Neck: Normal inspection. Neck supple. CVS: Normal heart rate and rhythm. Pulses normal. Respiratory: No respiratory distress. Equal air entry bilateral, no wheezing/rales/rhonchi Abdomen: Soft , tenderness at epigastric area Bowel sounds are present, no mass palpable, no CVA tenderness Skin: Skin warm and dry. Normal skin color. Normal skin turgor. Extremities: No lower extremity edema. No calf tenderness healing deep wound left foot Neuro: Oriented X 3. No motor deficit. No sensory deficit.No cerebellar signs , cranial nerves II-XII intact <Aidan Varma MD - Last Filed: 01/20/23 02:14> Course Course Course Narrative: 48-year-old male presents for evaluation of upper abdominal pain and vomiting that started about 45 minutes prior to arrival. EKG was done immediately which shows sinus tachycardia rate 124 beats per minute. Plan for labs, chest x-ray and further workup as indicated. Patient is currently being treated for a diabetic wound with IV antibiotics. <Christos NikkiSushmaEliud - Last Filed: 01/19/23 19:13> Medications Administered Generic Name Dose Route Start Last Admin Trade Name Freq PRN Reason Stop Dose Admin Sodium Chloride 3 ml 01/20/23 00:00 01/20/23 01:19 0.9 % Sodium Chloride Flush 3 Ml Syringe IVFLUSH Not Given QSHIFT IRISH Discontinued Medications Generic Name Dose Route Start Last Admin Trade Name Freq PRN Reason Stop Dose Admin Haloperidol Lactate 2 mg 01/19/23 19:37 01/19/23 19:43 Haloperidol Lactate 5 Mg/Ml Vial IM 01/19/23 19:38 2 mg ONCE ONE Administration Sodium Chloride 1,000 mls @ 999 mls/hr 01/19/23 20:24 01/19/23 22:00 Ns IV 01/19/23 21:24 Infused .Q1H1M ONE Infusion Ceftriaxone Sodium 1 gm/ 50 mls @ 100 mls/hr 01/19/23 20:26 01/19/23 21:45 Sodium Chloride IV 01/19/23 20:55 Infused ONCE ONE Infusion Vancomycin HCl 2,000 mg in 500 mls @ 250 mls/hr 01/19/23 22:45 01/19/23 23:12 Vancomycin/Ns IV 01/20/23 00:44 250 mls/hr ONCE ONE Administration Sodium Chloride 1,000 mls @ 999 mls/hr 01/19/23 22:40 01/20/23 01:20 Ns IV 01/19/23 23:40 Infused .Q1H1M ONE Infusion Sodium Chloride 1,000 mls @ 999 mls/hr 01/19/23 22:44 01/20/23 01:20 Ns IV 01/19/23 23:44 Infused .Q1H1M ONE Infusion Iohexol 100 ml 01/19/23 20:42 01/19/23 20:43 Iohexol 350 Mg/Ml 100 Ml Infus..Btl IV 01/19/23 20:43 85 ml ONCE ONE Administration Lorazepam 2 mg 01/19/23 19:29 01/19/23 19:33 Lorazepam 1 Mg Tablet PO 01/19/23 19:30 2 mg ONCE ONE Administration Lorazepam 2 mg 01/19/23 19:37 01/19/23 19:43 Lorazepam 2 Mg/Ml Vial IM 01/19/23 19:38 2 mg ONCE ONE Administration Ondansetron HCl 4 mg 01/19/23 19:29 01/19/23 19:33 Ondansetron Odt 4 Mg Tab.Rapdis TRANSLINGU 01/19/23 19:30 4 mg ONCE ONE Administration <Christos Barton - Last Filed: 01/19/23 19:13> Medications Administered Generic Name Dose Route Start Last Admin Trade Name Freq PRN Reason Stop Dose Admin Sodium Chloride 3 ml 01/20/23 00:00 01/20/23 01:19 0.9 % Sodium Chloride Flush 3 Ml Syringe IVFLUSH Not Given QSHIFT IRISH Discontinued Medications Generic Name Dose Route Start Last Admin Trade Name Freq PRN Reason Stop Dose Admin Haloperidol Lactate 2 mg 01/19/23 19:37 01/19/23 19:43 Haloperidol Lactate 5 Mg/Ml Vial IM 01/19/23 19:38 2 mg ONCE ONE Administration Sodium Chloride 1,000 mls @ 999 mls/hr 01/19/23 20:24 01/19/23 22:00 Ns IV 01/19/23 21:24 Infused .Q1H1M ONE Infusion Ceftriaxone Sodium 1 gm/ 50 mls @ 100 mls/hr 01/19/23 20:26 01/19/23 21:45 Sodium Chloride IV 01/19/23 20:55 Infused ONCE ONE Infusion Vancomycin HCl 2,000 mg in 500 mls @ 250 mls/hr 01/19/23 22:45 01/19/23 23:12 Vancomycin/Ns IV 01/20/23 00:44 250 mls/hr ONCE ONE Administration Sodium Chloride 1,000 mls @ 999 mls/hr 01/19/23 22:40 01/20/23 01:20 Ns IV 01/19/23 23:40 Infused .Q1H1M ONE Infusion Sodium Chloride 1,000 mls @ 999 mls/hr 01/19/23 22:44 01/20/23 01:20 Ns IV 01/19/23 23:44 Infused .Q1H1M ONE Infusion Iohexol 100 ml 01/19/23 20:42 01/19/23 20:43 Iohexol 350 Mg/Ml 100 Ml Infus..Btl IV 01/19/23 20:43 85 ml ONCE ONE Administration Lorazepam 2 mg 01/19/23 19:29 01/19/23 19:33 Lorazepam 1 Mg Tablet PO 01/19/23 19:30 2 mg ONCE ONE Administration Lorazepam 2 mg 01/19/23 19:37 01/19/23 19:43 Lorazepam 2 Mg/Ml Vial IM 01/19/23 19:38 2 mg ONCE ONE Administration Ondansetron HCl 4 mg 01/19/23 19:29 01/19/23 19:33 Ondansetron Odt 4 Mg Tab.Rapdis TRANSLINGU 01/19/23 19:30 4 mg ONCE ONE Administration <Aidan Varma MD - Last Filed: 01/20/23 02:14> Medical Decision Making Medical Decision Making [facility] Narrative: Patient with diabetic foot status post left fifth toe amputation with history of MRSA bacteremia came with increased vomiting lab workup showed leukocytosis lactic acidosis responded to IV fluids and IV antibiotic focused exam for sepsis was done at 01:00. Patient received IV fluids more than 30 cc/kilogram. Admit patient to hospitalist service x-ray showed erosive cortical changes of amputated borders of 4th and 5th metatarsal and proximal 5th metatarsal concerning for osteomyelitis <Aidan Varma MD - Last Filed: 01/20/23 02:14> Differential Diagnosis Sepsis/bacteremia/osteomyelitis/pancreatitis <Aidan Varma MD - Last Filed: 01/20/23 02:14> Consult Healthcare Provider Management of the patient was discussed with: Hospitalist <Aidan Varma MD - Last Filed: 01/20/23 02:14> Lab Data [facility] Lab Attestation statement: I reviewed the patient's lab results. <Aidan Varma MD - Last Filed: 01/20/23 02:14> Result Diagrams: 01/19/23 19:10 01/19/23 19:10 <Christos Barton - Last Filed: 01/19/23 19:13> Labs: Lab Results 01/19/23 01/19/23 01/19/23 Range/Units 19:10 19:10 19:10 WBC 19.5 H (4.8-10.8) X10*3/uL RBC 5.96 H (4.60-5.80) X10*6/uL Hgb 17.1 (14.0-18.0) g/dl Hct 51.0 (42.0-52.0) % MCV 85.6 (80.0-98.0) fL MCH 28.7 (27.0-33.0) pg MCHC 33.5 (31.0-36.0) g/dl RDW 14.0 (11.0-16.0) % Plt Count 659 H D (160-400) X10*3/uL MPV 8.3 L (9.4-12.4) fL Immature Gran % (Auto) 0.8 H (0.0-0.4) % Neut % (Auto) 78.5 H (45-73) % Lymph % (Auto) 14.0 L (20-40) % [place] % (Auto) 6.2 (2-11) % Eos % (Auto) 0.0 (0-4) % Baso % (Auto) 0.5 (0-2) % Lymph # (Auto) 2.7 (1.2-4.9) X10*3/uL [place] # (Auto) 1.2 (0.1-1.2) X10*3/uL Eos # (Auto) 0.0 (0.0-0.4) X10*3/uL Baso # (Auto) 0.1 (0.0-0.2) X10*3/uL Abs Immat Gran (auto) 0.15 H (0.00-0.03) X10*3/uL Absolute Neuts (auto) 15.3 H (2.0-8.3) x10*3/uL Absolute Nucleated RBC 0.000 (0.0-0.012) X10*3/uL Nucleated RBC % (auto) 0.0 (0.0-0.2) /100WBC Smear Tech's Comments Sodium 140 (135-145) mmol/L Potassium 3.8 (3.3-5.1) mmol/L Chloride 103 (96-108) mmol/L Carbon Dioxide 20 L (22-29) mmol/L Anion Gap 21 H (12-20) BUN 13 (9-16) mg/dL Creatinine 1.16 (0.5-1.4) mg/dL Estim Creat Clear Calc 85.5 Estimated GFR > 60 Random Glucose 186 H (60-115) mg/dL Lactic Acid (0.5-2.0) mmol/L Lactic Acid F/U @ 2Hr (0.5-2.0) mmol/L Calcium 9.8 D (8.4-10.2) mg/dL Magnesium 1.8 (1.6-2.6) mg/dL Total Bilirubin 0.5 (0.0-1.0) mg/dL AST 17 (5-37) U/L ALT 36 (0-40) U/L Alkaline Phosphatase 73 (39-117) U/L Troponin I High Sens 5.2 (<3.5-35.0) ng/L Total Protein 7.7 (6.5-8.0) g/dL Albumin 4.4 (3.5-5.0) g/dL Lipase 28 (8-78) U/L 01/19/23 01/19/23 01/19/23 Range/Units 19:33 20:53 22:34 WBC (4.8-10.8) X10*3/uL RBC (4.60-5.80) X10*6/uL Hgb (14.0-18.0) g/dl Hct (42.0-52.0) % MCV (80.0-98.0) fL MCH (27.0-33.0) pg MCHC (31.0-36.0) g/dl RDW (11.0-16.0) % Plt Count (160-400) X10*3/uL MPV (9.4-12.4) fL Immature Gran % (Auto) (0.0-0.4) % Neut % (Auto) (45-73) % Lymph % (Auto) (20-40) % [place]bers[place] % (Auto) (2-11) % Eos % (Auto) (0-4) % Baso % (Auto) (0-2) % Lymph # (Auto) (1.2-4.9) X10*3/uL [place] # (Auto) (0.1-1.2) X10*3/uL Eos # (Auto) (0.0-0.4) X10*3/uL Baso # (Auto) (0.0-0.2) X10*3/uL Abs Immat Gran (auto) (0.00-0.03) X10*3/uL Absolute Neuts (auto) (2.0-8.3) x10*3/uL Absolute Nucleated RBC (0.0-0.012) X10*3/uL Nucleated RBC % (auto) (0.0-0.2) /100WBC Smear Tech's Comments Sodium (135-145) mmol/L Potassium (3.3-5.1) mmol/L Chloride (96-108) mmol/L Carbon Dioxide (22-29) mmol/L Anion Gap (12-20) BUN (9-16) mg/dL Creatinine (0.5-1.4) mg/dL Estim Creat Clear Calc Estimated GFR Random Glucose (60-115) mg/dL Lactic Acid 7.4 H* 7.4 H* (0.5-2.0) mmol/L Lactic Acid F/U @ 2Hr 4.0 H* (0.5-2.0) mmol/L Calcium (8.4-10.2) mg/dL Magnesium (1.6-2.6) mg/dL Total Bilirubin (0.0-1.0) mg/dL AST (5-37) U/L ALT (0-40) U/L Alkaline Phosphatase (39-117) U/L Troponin I High Sens (<3.5-35.0) ng/L Total Protein (6.5-8.0) g/dL Albumin (3.5-5.0) g/dL Lipase (8-78) U/L 01/19/23 Range/Units 22:34 WBC 18.5 H (4.8-10.8) X10*3/uL RBC 5.79 (4.60-5.80) X10*6/uL Hgb 16.5 (14.0-18.0) g/dl Hct 49.4 (42.0-52.0) % MCV 85.3 (80.0-98.0) fL MCH 28.5 (27.0-33.0) pg MCHC 33.4 (31.0-36.0) g/dl RDW 14.0 (11.0-16.0) % Plt Count 582 H (160-400) X10*3/uL MPV 8.4 L (9.4-12.4) fL Immature Gran % (Auto) 0.8 H (0.0-0.4) % Neut % (Auto) 92.8 H (45-73) % Lymph % (Auto) 3.9 L (20-40) % [place] % (Auto) 2.2 (2-11) % Eos % (Auto) 0.0 (0-4) % Baso % (Auto) 0.3 (0-2) % Lymph # (Auto) 0.7 L (1.2-4.9) X10*3/uL [place] # (Auto) 0.4 (0.1-1.2) X10*3/uL Eos # (Auto) 0.0 (0.0-0.4) X10*3/uL Baso # (Auto) 0.1 (0.0-0.2) X10*3/uL Abs Immat Gran (auto) 0.14 H (0.00-0.03) X10*3/uL Absolute Neuts (auto) 17.2 H (2.0-8.3) x10*3/uL Absolute Nucleated RBC 0.000 (0.0-0.012) X10*3/uL Nucleated RBC % (auto) 0.0 (0.0-0.2) /100WBC Smear Tech's Comments VERIFIED Sodium (135-145) mmol/L Potassium (3.3-5.1) mmol/L Chloride (96-108) mmol/L Carbon Dioxide (22-29) mmol/L Anion Gap (12-20) BUN (9-16) mg/dL Creatinine (0.5-1.4) mg/dL Estim Creat Clear Calc Estimated GFR Random Glucose (60-115) mg/dL Lactic Acid (0.5-2.0) mmol/L Lactic Acid F/U @ 2Hr (0.5-2.0) mmol/L Calcium (8.4-10.2) mg/dL Magnesium (1.6-2.6) mg/dL Total Bilirubin (0.0-1.0) mg/dL AST (5-37) U/L ALT (0-40) U/L Alkaline Phosphatase (39-117) U/L Troponin I High Sens (<3.5-35.0) ng/L Total Protein (6.5-8.0) g/dL Albumin (3.5-5.0) g/dL Lipase (8-78) U/L <Christos Barton - Last Filed: 01/19/23 19:13> Lab Results 01/19/23 01/19/23 01/19/23 Range/Units 19:10 19:10 19:10 WBC 19.5 H (4.8-10.8) X10*3/uL RBC 5.96 H (4.60-5.80) X10*6/uL Hgb 17.1 (14.0-18.0) g/dl Hct 51.0 (42.0-52.0) % MCV 85.6 (80.0-98.0) fL MCH 28.7 (27.0-33.0) pg MCHC 33.5 (31.0-36.0) g/dl RDW 14.0 (11.0-16.0) % Plt Count 659 H D (160-400) X10*3/uL MPV 8.3 L (9.4-12.4) fL Immature Gran % (Auto) 0.8 H (0.0-0.4) % Neut % (Auto) 78.5 H (45-73) % Lymph % (Auto) 14.0 L (20-40) % [place] % (Auto) 6.2 (2-11) % Eos % (Auto) 0.0 (0-4) % Baso % (Auto) 0.5 (0-2) % Lymph # (Auto) 2.7 (1.2-4.9) X10*3/uL [place] # (Auto) 1.2 (0.1-1.2) X10*3/uL Eos # (Auto) 0.0 (0.0-0.4) X10*3/uL Baso # (Auto) 0.1 (0.0-0.2) X10*3/uL Abs Immat Gran (auto) 0.15 H (0.00-0.03) X10*3/uL Absolute Neuts (auto) 15.3 H (2.0-8.3) x10*3/uL Absolute Nucleated RBC 0.000 (0.0-0.012) X10*3/uL Nucleated RBC % (auto) 0.0 (0.0-0.2) /100WBC Smear Tech's Comments Sodium 140 (135-145) mmol/L Potassium 3.8 (3.3-5.1) mmol/L Chloride 103 (96-108) mmol/L Carbon Dioxide 20 L (22-29) mmol/L Anion Gap 21 H (12-20) BUN 13 (9-16) mg/dL Creatinine 1.16 (0.5-1.4) mg/dL Estim Creat Clear Calc 85.5 Estimated GFR > 60 Random Glucose 186 H (60-115) mg/dL Lactic Acid (0.5-2.0) mmol/L Lactic Acid F/U @ 2Hr (0.5-2.0) mmol/L Calcium 9.8 D (8.4-10.2) mg/dL Magnesium 1.8 (1.6-2.6) mg/dL Total Bilirubin 0.5 (0.0-1.0) mg/dL AST 17 (5-37) U/L ALT 36 (0-40) U/L Alkaline Phosphatase 73 (39-117) U/L Troponin I High Sens 5.2 (<3.5-35.0) ng/L Total Protein 7.7 (6.5-8.0) g/dL Albumin 4.4 (3.5-5.0) g/dL Lipase 28 (8-78) U/L 01/19/23 01/19/23 01/19/23 Range/Units 19:33 20:53 22:34 WBC (4.8-10.8) X10*3/uL RBC (4.60-5.80) X10*6/uL Hgb (14.0-18.0) g/dl Hct (42.0-52.0) % MCV (80.0-98.0) fL MCH (27.0-33.0) pg MCHC (31.0-36.0) g/dl RDW (11.0-16.0) % Plt Count (160-400) X10*3/uL MPV (9.4-12.4) fL Immature Gran % (Auto) (0.0-0.4) % Neut % (Auto) (45-73) % Lymph % (Auto) (20-40) % [place] % (Auto) (2-11) % Eos % (Auto) (0-4) % Baso % (Auto) (0-2) % Lymph # (Auto) (1.2-4.9) X10*3/uL [place] # (Auto) (0.1-1.2) X10*3/uL Eos # (Auto) (0.0-0.4) X10*3/uL Baso # (Auto) (0.0-0.2) X10*3/uL Abs Immat Gran (auto) (0.00-0.03) X10*3/uL Absolute Neuts (auto) (2.0-8.3) x10*3/uL Absolute Nucleated RBC (0.0-0.012) X10*3/uL Nucleated RBC % (auto) (0.0-0.2) /100WBC Smear Tech's Comments Sodium (135-145) mmol/L Potassium (3.3-5.1) mmol/L Chloride (96-108) mmol/L Carbon Dioxide (22-29) mmol/L Anion Gap (12-20) BUN (9-16) mg/dL Creatinine (0.5-1.4) mg/dL Estim Creat Clear Calc Estimated GFR Random Glucose (60-115) mg/dL Lactic Acid 7.4 H* 7.4 H* (0.5-2.0) mmol/L Lactic Acid F/U @ 2Hr 4.0 H* (0.5-2.0) mmol/L Calcium (8.4-10.2) mg/dL Magnesium (1.6-2.6) mg/dL Total Bilirubin (0.0-1.0) mg/dL AST (5-37) U/L ALT (0-40) U/L Alkaline Phosphatase (39-117) U/L Troponin I High Sens (<3.5-35.0) ng/L Total Protein (6.5-8.0) g/dL Albumin (3.5-5.0) g/dL Lipase (8-78) U/L 01/19/23 Range/Units 22:34 WBC 18.5 H (4.8-10.8) X10*3/uL RBC 5.79 (4.60-5.80) X10*6/uL Hgb 16.5 (14.0-18.0) g/dl Hct 49.4 (42.0-52.0) % MCV 85.3 (80.0-98.0) fL MCH 28.5 (27.0-33.0) pg MCHC 33.4 (31.0-36.0) g/dl RDW 14.0 (11.0-16.0) % Plt Count 582 H (160-400) X10*3/uL MPV 8.4 L (9.4-12.4) fL Immature Gran % (Auto) 0.8 H (0.0-0.4) % Neut % (Auto) 92.8 H (45-73) % Lymph % (Auto) 3.9 L (20-40) % [place] % (Auto) 2.2 (2-11) % Eos % (Auto) 0.0 (0-4) % Baso % (Auto) 0.3 (0-2) % Lymph # (Auto) 0.7 L (1.2-4.9) X10*3/uL [place] # (Auto) 0.4 (0.1-1.2) X10*3/uL Eos # (Auto) 0.0 (0.0-0.4) X10*3/uL Baso # (Auto) 0.1 (0.0-0.2) X10*3/uL Abs Immat Gran (auto) 0.14 H (0.00-0.03) X10*3/uL Absolute Neuts (auto) 17.2 H (2.0-8.3) x10*3/uL Absolute Nucleated RBC 0.000 (0.0-0.012) X10*3/uL Nucleated RBC % (auto) 0.0 (0.0-0.2) /100WBC Smear Tech's Comments VERIFIED Sodium (135-145) mmol/L Potassium (3.3-5.1) mmol/L Chloride (96-108) mmol/L Carbon Dioxide (22-29) mmol/L Anion Gap (12-20) BUN (9-16) mg/dL Creatinine (0.5-1.4) mg/dL Estim Creat Clear Calc Estimated GFR Random Glucose (60-115) mg/dL Lactic Acid (0.5-2.0) mmol/L Lactic Acid F/U @ 2Hr (0.5-2.0) mmol/L Calcium (8.4-10.2) mg/dL Magnesium (1.6-2.6) mg/dL Total Bilirubin (0.0-1.0) mg/dL AST (5-37) U/L ALT (0-40) U/L Alkaline Phosphatase (39-117) U/L Troponin I High Sens (<3.5-35.0) ng/L Total Protein (6.5-8.0) g/dL Albumin (3.5-5.0) g/dL Lipase (8-78) U/L <Aidan Varma MD - Last Filed: 01/20/23 02:14> Critical Care Time Critical Care Time Critical Care Time: Yes <Aidan Varma MD - Last Filed: 01/20/23 02:14> Total Critical Care Time: 55 <Aidan Varma MD - Last Filed: 01/20/23 02:14> Attestation: The patient was critically ill with a high probability of imminent or life threatening deterioration. I spent greater than 60 minutes of discontinuous time evaluating the patient,delivering critical care at the bedside, discussing and evaluating pertinent data with consultants. Critical care time does not include time spent performing separately billable procedures or teaching. Total time spent performing critical care was 55 minutes. <Aidan Varma MD - Last Filed: 01/20/23 02:14> Discharge Plan Discharge Clinical Impression: Acute osteomyelitis of left foot, Sepsis, Acidosis, lactic <Christos Barton - Last Filed: 01/19/23 19:13> Patient Disposition: Admitted As Inpatient <Christos Barton - Last Filed: 01/19/23 19:13>
[2023-01-19 19:19] LABS: MANUAL DIFF FLAG NO
[2023-01-19 19:22] LABS: Basophils Absolute Auto 0.1 X10*3/uL (0.0-0.2); Basophils Percent Auto 0.5 % (0-2); Hemoglobin 17.1 g/dl (14.0-18.0); Imm Gran Abs Auto 0.15 X10*3/uL (0.00-0.03); Imm Gran Pct Auto 0.8 % (0.0-0.4); Lymphocytes Absolute Auto 2.7 X10*3/uL (1.2-4.9); Mean Corpuscular HGB Conc 33.5 g/dl (31.0-36.0); Mean Corpuscular Hemoglobin 28.7 pg (27.0-33.0); Mean Corpuscular Volume 85.6 fL (80.0-98.0); Mean Platelet Volume 8.3 fL (9.4-12.4); Monocytes Absolute Auto 1.2 X10*3/uL (0.1-1.2); Monocytes Percent Auto 6.2 % (2-11); Neutrophils Absolute Auto 15.3 x10*3/uL (2.0-8.3); Neutrophils Percent Auto 78.5 % (45-73); Platelet Count 659 X10*3/uL (160-400); Red Blood Count 5.96 X10*6/uL (4.60-5.80); White Blood Count 19.5 X10*3/uL (4.8-10.8)
[2023-01-19] MEDS: Ondansetron ODT 4 MG TAB.RAPDIS TRANSLINGU (19:33)
[2023-01-19] MEDS: LORazepam 1 MG TABLET 2 MG PO (19:33)
--- NOTE | 2023-01-19 19:36 | PC.NURSE ---
Patient is anxious, restless, unable to stay still during IV line insertion. MD at bedside, plan to medicate patient with PO Lorazepam and Zofran.
--- NOTE | 2023-01-19 19:39 | PC.NURSE ---
Patient medicated per MAR, patient vomited after receiving PO meds, Dr. Uriostegui informed.
[2023-01-19] MEDS: Haloperidol Lactate 5 MG/ML VIAL 2 MG IM (19:43)
[2023-01-19] MEDS: LORazepam 2 MG/ML VIAL IM (19:43)
[2023-01-19 19:45] LABS: Alanine Aminotransferase 36 U/L (0-40); Albumin Level 4.4 g/dL (3.5-5.0); Alkaline Phosphatase 73 U/L (39-117); Anion Gap 21 (12-20); Aspartate Amino Transferase 17 U/L (5-37); Bilirubin Total 0.5 mg/dL (0.0-1.0); Blood Urea Nitrogen 13 mg/dL (9-16); Calcium 9.8 mg/dL (8.4-10.2); Carbon Dioxide 20 mmol/L (22-29); Chloride 103 mmol/L (96-108); Creatinine Clr Calc Pharmacy 85.5; Estimated Glomerular Filt Rate > 60; Glucose Random 186 mg/dL (60-115); Lipase 28 U/L (8-78); Magnesium 1.8 mg/dL (1.6-2.6); Potassium 3.8 mmol/L (3.3-5.1); Sodium 140 mmol/L (135-145); Total Protein 7.7 g/dL (6.5-8.0)
[2023-01-19 19:50] LABS: Troponin-I High Sensitivity 5.2 ng/L (<3.5-35.0)
[2023-01-19 20:22] LABS: Lactic Acid 7.4 mmol/L (0.5-2.0)
[2023-01-19] MEDS: 0.9 % Sodium Chloride 1,000 ML 999 ML IV ×3 (20:27→23:50)
[2023-01-19] MEDS: iohexoL 350 MG/ML 100 ML INFUS..BTL IV (20:43)
[2023-01-19] MEDS: cefTRIAXone sodium 1 GM in 0.9 % Sodium Chloride 50 ML IV (21:00)
[2023-01-19 21:03] VITALS: BP 138/75; PULSE 111; RESP 16; TEMP 36.7; O2SAT 97
[2023-01-19 21:12] LABS: Lactic Acid 7.4 mmol/L (0.5-2.0)
[2023-01-19 22:03] LABS: Reflex Lactate? Lactic Acid Added
--- NOTE | 2023-01-19 22:07 | PC.NURSE ---
Patient is alert and oriented x3. Patient is calm, resting with his eyes closed on stretcher bed, call hi within patient's reach. VSS. Patient reports improvement in abdominal pain and describing the pain as dull, constant 3/10 on 0/10 pain scale. Patient continues to report mild nausea, no vomiting at present. CT scan of abdomen competed and revealed no acute /abnormal findings.
[2023-01-19 22:21] VITALS: BP 141/77; PULSE 107; RESP 19; O2SAT 97
[2023-01-19 22:49] LABS: Basophils Absolute Auto 0.1 X10*3/uL (0.0-0.2); Basophils Percent Auto 0.3 % (0-2); Hematocrit 49.4 % (42.0-52.0); Hemoglobin 16.5 g/dl (14.0-18.0); Imm Gran Abs Auto 0.14 X10*3/uL (0.00-0.03); Imm Gran Pct Auto 0.8 % (0.0-0.4); Lymphocytes Absolute Auto 0.7 X10*3/uL (1.2-4.9); Lymphocytes Percent Auto 3.9 % (20-40); MANUAL DIFF FLAG SCAN; Mean Corpuscular HGB Conc 33.4 g/dl (31.0-36.0); Mean Corpuscular Hemoglobin 28.5 pg (27.0-33.0); Mean Corpuscular Volume 85.3 fL (80.0-98.0); Mean Platelet Volume 8.4 fL (9.4-12.4); Monocytes Absolute Auto 0.4 X10*3/uL (0.1-1.2); Monocytes Percent Auto 2.2 % (2-11); Neutrophils Absolute Auto 17.2 x10*3/uL (2.0-8.3); Neutrophils Percent Auto 92.8 % (45-73); Platelet Count 582 X10*3/uL (160-400); Red Blood Count 5.79 X10*6/uL (4.60-5.80); SCAN SMEAR FLAG 1; White Blood Count 18.5 X10*3/uL (4.8-10.8)
[2023-01-19 23:12] LABS: SLIDE REVIEW VERIFIED
[2023-01-19] MEDS: vancomycin/NS 2,000 MG/500 ML PLAST..BAG 250 MG IV (23:12)
--- NOTE | 2023-01-19 23:52 | PM.IMHP ---
History of Present Illness Date of Service: 01/19/23 Chief Complaint: n/v 48M PMH DM, with OM/DFU s/p multiple amputations, most recently 12/11/22 left 5th toe, anxiety, htn, hld, ptsd, presented with intractable nausea and vomitting. patient recently started on levaquin and flagyl for left amp site cellulitis, about 1 week ptp. patient now reporting one day of severe epigastric pain, n/v, inability to tolerate po. in ED found to be severe septic with elevated wbc, tachycardia and lactate of 7, responded well to IVF, antiemetics. abd ct unremarkable, xray foot with concern for OM Review of Systems Review of Systems: Yes all other systems are reviewed and are negative [facility] Medical History Acidosis, lactic Anxiety Bacteremia due to Streptococcus Bacterial infection due to Streptococcus, group C Cellulitis Diabetes type 2, controlled 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 GERD (gastroesophageal reflux disease) Marijuana smoker MRSA (methicillin resistant Staphylococcus aureus) Posttraumatic stress disorder Right foot infection Staphylococcus aureus bacteremia Surgical History History of amputation (12/11/22) History of incision and drainage History of laparoscopic cholecystectomy History of partial amputation of toe (10/11/22) Social History Household Members: None Housing: Apartment Do you presently have visiting nurse or other home services: Yes Alcohol intake: never Patient Tobacco Use Status: Current everyday Tobacco user Tobacco use type: Cigarette Cigarette Packs Per Day: 1 Cigarettes Per Day: 10 Years Smoked: 36 years Second Hand Smoke Exposure: No Substance Use Type: Marijuana Advance Directives: No Advance Directives Information Provided: No service: No Current occupational status: disabled Meds Allergies Allergy/AdvReac Type Severity Reaction Status Date / Time amoxicillin [AMOXICILLIN] Allergy Severe ANAPHYLAXIS Verified 01/19/23 19:10 oxycodone [From Tylox] Allergy Intermediate Itching Verified 01/19/23 19:10 hydrocodone [HYDROCODONE] Allergy Unknown UNKNOWN Verified 01/19/23 19:10 Active Medications: Current Medications Ascorbic Acid (Ascorbic Acid 500 Mg Tablet) 500 mg PO DAILY [place] Cyanocobalamin (Cyanocobalamin (Vitamin B-12) 100 Mcg Tablet) 50 mcg PO DAILY [facility] Gabapentin (Gabapentin 100 Mg Capsule) 100 mg PO TID [facility] Glucose (Glucose Gel 15 Gm Gel..Gram.) 15 gm PO Q15M PRN; Protocol PRN Reason: per Hypoglycemia Standing Ord. Hydromorphone HCl (Hydromorphone Hcl 0.5 Mg/0.5 Ml Syringe) 0.5 mg IVPUSH Q4H PRN; Protocol PRN Reason: moderate pain Vancomycin HCl (Vancomycin/Ns) 2,000 mg in 500 mls @ 250 mls/hr IV ONCE ONE Stop: 01/20/23 00:44 Last Admin: 01/19/23 23:12 Dose: 250 mls/hr Dextrose (D10) 250 mls @ 750 mls/hr IV Q15M PRN; Protocol PRN Reason: per Hypoglycemia Standing Ord. Insulin Human Lispro (Insulin Lispro 100 Unit/Ml 3 Ml Vial) 0 unit SUBCUT QIDACHS [facility]; Protocol Vitamin D (Cholecalciferol (Vitamin D3) 25 Mcg Tablet) 50 mcg PO DAILY [facility] Home Medications Medication Instructions Recorded Confirmed Last Taken Type cholecalciferol (vitamin D3) 50 50 mcg PO DAILY 11/04/21 01/19/23 12/07/22 History mcg (2,000 unit) capsule hydroxyzine HCl 25 mg tablet 25 mg PO QID PRN Anxiety 09/14/22 12/08/22 12/07/22 History gabapentin 100 mg capsule 100 mg PO TID 10/06/22 01/19/23 12/07/22 History metformin 500 mg tablet 500 mg PO BID 10/06/22 12/08/22 12/07/22 History ascorbic acid (vitamin C) 500 mg 500 mg PO DAILY 11/29/22 01/19/23 12/07/22 History tablet dulaglutide 1.5 mg/0.5 mL 1.5 mg subcut ALMENDAREZ 11/29/22 12/08/22 12/03/22 History subcutaneous pen injector (Trulicity) glipizide 5 mg tablet 10 mg PO DAILY 11/29/22 01/19/23 12/07/22 History cyanocobalamin (vitamin B-12) 50 50 mcg PO DAILY 12/08/22 01/19/23 12/07/22 History mcg tablet Physical Exam Vital Signs and Narrative: Vital Signs: Last Vital Signs Temp 98.1 F 01/19/23 21:03 Pulse 107 H 01/19/23 22:21 Resp 19 01/19/23 22:21 BP 141/77 H 01/19/23 22:21 Pulse Ox 97 01/19/23 22:21 O2 Del Method Room Air 01/19/23 22:21 BMI result Body Mass Index 29.3 General: AO X 3, in discomfort Resp: CTA bilateral, no accessory muscles used CVS: S1,S2,RRR GI: soft, non tender, non distended Neuro: motor grossly intact, alert skin: left foot amp site erythema, exposed bone. Results Labs 01/19/23 22:34 01/19/23 19:10 Labs: Laboratory Results - last 24 hr 01/19/23 01/19/23 01/19/23 19:10 19:10 19:10 MCV 85.6 MCH 28.7 MCHC 33.5 RDW 14.0 Plt Count 659 H D MPV 8.3 L Immature Gran % (Auto) 0.8 H Neut % (Auto) 78.5 H Lymph % (Auto) 14.0 L Early % (Auto) 6.2 Eos % (Auto) 0.0 Baso % (Auto) 0.5 Lymph # (Auto) 2.7 Early # (Auto) 1.2 Eos # (Auto) 0.0 Baso # (Auto) 0.1 Abs Immat Gran (auto) 0.15 H Absolute Neuts (auto) 15.3 H Absolute Nucleated RBC 0.000 Nucleated RBC % (auto) 0.0 Smear Tech's Comments Anion Gap 21 H Estim Creat Clear Calc 85.5 Estimated GFR > 60 Random Glucose 186 H Lactic Acid Lactic Acid F/U @ 2Hr Calcium 9.8 D Magnesium 1.8 Total Bilirubin 0.5 AST 17 ALT 36 Alkaline Phosphatase 73 Troponin I High Sens 5.2 Total Protein 7.7 Albumin 4.4 Lipase 28 01/19/23 01/19/23 01/19/23 19:33 20:53 22:34 MCV MCH MCHC RDW Plt Count MPV Immature Gran % (Auto) Neut % (Auto) Lymph % (Auto) Early % (Auto) Eos % (Auto) Baso % (Auto) Lymph # (Auto) Early # (Auto) Eos # (Auto) Baso # (Auto) Abs Immat Gran (auto) Absolute Neuts (auto) Absolute Nucleated RBC Nucleated RBC % (auto) Smear Tech's Comments Anion Gap Estim Creat Clear Calc Estimated GFR Random Glucose Lactic Acid 7.4 H* 7.4 H* Lactic Acid F/U @ 2Hr 4.0 H* Calcium Magnesium Total Bilirubin AST ALT Alkaline Phosphatase Troponin I High Sens Total Protein Albumin Lipase 01/19/23 22:34 MCV 85.3 MCH 28.5 MCHC 33.4 RDW 14.0 Plt Count 582 H MPV 8.4 L Immature Gran % (Auto) 0.8 H Neut % (Auto) 92.8 H Lymph % (Auto) 3.9 L Early % (Auto) 2.2 Eos % (Auto) 0.0 Baso % (Auto) 0.3 Lymph # (Auto) 0.7 L Early # (Auto) 0.4 Eos # (Auto) 0.0 Baso # (Auto) 0.1 Abs Immat Gran (auto) 0.14 H Absolute Neuts (auto) 17.2 H Absolute Nucleated RBC 0.000 Nucleated RBC % (auto) 0.0 Smear Tech's Comments VERIFIED Anion Gap Estim Creat Clear Calc Estimated GFR Random Glucose Lactic Acid Lactic Acid F/U @ 2Hr Calcium Magnesium Total Bilirubin AST ALT Alkaline Phosphatase Troponin I High Sens Total Protein Albumin Lipase Imaging Radiologist's Impressions: Impressions Abdomen/Pelvis CT 01/19/23 20:50 IMPRESSION: No acute intra-abdominal process seen. Status post cholecystectomy. Small hiatal hernia. Foot X-Ray 01/19/23 22:45 IMPRESSION: Erosive cortical changes of the amputated borders of the fourth and fifth metatarsals and erosive changes in the proximal fifth metatarsal, concerning for osteomyelitis. Assessment and Plan (1) 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: Status: Acute Plan 48M PMH DM, with OM/DFU s/p multiple amputations, most recently 12/11/22 left 5th toe, anxiety, ptsd, presented with intractable nausea and vomiting severe sepsis due to DM complicated by DFU with osteomyelitis and acute lactic acidosis vanc, cefepime follow up cultures surgery, ID eval DM with peripheral neuropathy insulin monitor pocs gabapentin dvt prophylaxis - lovenox full code patient with singificnat infection, lactici acidosis, at risk for further decompensation, therefore, liekly to require atleast 2 midinights, inpatient Time Spent With Patient Time: Total time managing care of this patient today ____ minutes. Quality Stroke Does the patient have a stroke diagnosis?: No VTE Prior VTE?: No VTE Risk Level:: Medical - moderate - high VTE Device Contraindication: Treatment Not Indicated VTE Drug Contraindication: N/A - Med Ordered
[2023-01-20 00:36] VITALS: BP 141/78; PULSE 102; RESP 22; TEMP 36.8; O2SAT 97
[2023-01-20 00:42] LABS: Reflex Lactate? 2 Y
[2023-01-20 01:56] LABS: ~Lactic Acid-LAB USE ONLY 3.4 mmol/L (0.5-2.0)
--- NOTE | 2023-01-20 02:01 | PC.NURSE ---
Critical lactic acid level 3.[address] Perez.
--- NOTE | 2023-01-20 02:17 | PC.NURSE ---
Nurse to nurse report given remedial teacher.Patient to be transported to bed [id number] by clock repair technician.
[2023-01-20] MEDS: cefEPime HCl 1 GM in 0.9 % Sodium Chloride 50 ML IV ×3 (02:22→16:05)
[2023-01-20 06:20] LABS: Hematocrit 48.1 % (42.0-52.0); Hemoglobin 16.4 g/dl (14.0-18.0); Mean Corpuscular HGB Conc 34.1 g/dl (31.0-36.0); Mean Corpuscular Hemoglobin 28.7 pg (27.0-33.0); Mean Corpuscular Volume 84.1 fL (80.0-98.0); Mean Platelet Volume 8.7 fL (9.4-12.4); Platelet Count 526 X10*3/uL (160-400); Red Blood Count 5.72 X10*6/uL (4.60-5.80); White Blood Count 15.2 X10*3/uL (4.8-10.8)
[2023-01-20 06:38] LABS: Anion Gap 18 (12-20); Blood Urea Nitrogen 11 mg/dL (9-16); Calcium 8.9 mg/dL (8.4-10.2); Carbon Dioxide 19 mmol/L (22-29); Chloride 106 mmol/L (96-108); Creatinine Clr Calc Pharmacy 119.5; Estimated Glomerular Filt Rate > 60; Glucose Fasting 288 mg/dL (60-99); Potassium 4.4 mmol/L (3.3-5.1); Sodium 139 mmol/L (135-145)
--- NOTE | 2023-01-20 07:01 | P.PNIM_ITS ---
Subjective Subjective Date of Service: 03/25/23 Interval History: f/u on diabetic foot ulcer intervl history: no new issue, pain controlled. Physical Exam Vital Signs: Vital Signs: Last Vital Signs Temp 98.3 F 01/20/23 00:36 Pulse 102 H 01/20/23 00:36 Resp 22 H 01/20/23 00:36 BP 141/78 H 01/20/23 00:36 Pulse Ox 97 01/20/23 00:36 O2 Del Method Room Air 01/20/23 00:36 BMI result Body Mass Index 29.3 Const: Other: General: AO X 3, no acute distress Resp: CTA bilateral CVS: S1,S2,RRR GI: +BS, NT, no distention Skin: Neuro: motor grossly intact Psych: appropriate affect Objective Data Active Medications Ascorbic Acid (Ascorbic Acid 500 Mg Tablet) 500 mg PO DAILY [facility] Cyanocobalamin (Cyanocobalamin (Vitamin B-12) 100 Mcg Tablet) 50 mcg PO DAILY [facility] Diphenhydramine HCl (Diphenhydramine Hcl 50 Mg/Ml Vial) 25 mg IVPUSH Q6H PRN PRN Reason: nasuea Enoxaparin Sodium (Enoxaparin Sodium 40 Mg/0.4 Ml Syringe) 40 mg SUBCUT Q24H [facility] Gabapentin (Gabapentin 100 Mg Capsule) 100 mg PO TID [facility] Glucose (Glucose Gel 15 Gm Gel..Gram.) 15 gm PO Q15M PRN; Protocol PRN Reason: per Hypoglycemia Standing Ord. Hydromorphone HCl (Hydromorphone Hcl 0.5 Mg/0.5 Ml Syringe) 0.5 mg IVPUSH Q4H PRN; Protocol PRN Reason: moderate pain Dextrose (D10) 250 mls @ 750 mls/hr IV Q15M PRN; Protocol PRN Reason: per Hypoglycemia Standing Ord. Cefepime HCl 1 gm/ Sodium (Chloride) 50 mls @ 100 mls/hr IV Q8H [facility] Last Infusion: 01/20/23 03:08 Dose: 0 mls/hr Documented By: ROD Insulin Human Lispro (Insulin Lispro 100 Unit/Ml 3 Ml Vial) 0 unit SUBCUT QIDACHS [facility]; Protocol Pharmacy Consult (Consult Rx Vancomycin Dosing) 1 each MISCELLANE DAILY PRN PRN Reason: Consult order Sodium Chloride (0.9 % Sodium Chloride Flush 3 Ml Syringe) 3 ml IVFLUSH QSHIFT [facility] Last Admin: 01/20/23 01:19 Dose: Not Given Documented By: ISAK Non-Admin Reason: IV Running Vitamin D (Cholecalciferol (Vitamin D3) 25 Mcg Tablet) 50 mcg PO DAILY [facility] Labs 01/20/23 05:47 01/20/23 05:47 Labs: Laboratory Results - last 24 hr 01/19/23 01/19/23 01/19/23 19:10 19:10 19:10 MCV 85.6 MCH 28.7 MCHC 33.5 RDW 14.0 Plt Count 659 H D MPV 8.3 L Immature Gran % (Auto) 0.8 H Neut % (Auto) 78.5 H Lymph % (Auto) 14.0 L Marshall % (Auto) 6.2 Eos % (Auto) 0.0 Baso % (Auto) 0.5 Lymph # (Auto) 2.7 Marshall # (Auto) 1.2 Eos # (Auto) 0.0 Baso # (Auto) 0.1 Abs Immat Gran (auto) 0.15 H Absolute Neuts (auto) 15.3 H Absolute Nucleated RBC 0.000 Nucleated RBC % (auto) 0.0 Smear Tech's Comments Anion Gap 21 H Estim Creat Clear Calc 85.5 Estimated GFR > 60 Random Glucose 186 H Fasting Glucose Lactic Acid Lactic Acid F/U @ 2Hr Lactic Acid F/U @ 4Hr Calcium 9.8 D Magnesium 1.8 Total Bilirubin 0.5 AST 17 ALT 36 Alkaline Phosphatase 73 Troponin I High Sens 5.2 Total Protein 7.7 Albumin 4.4 Lipase 28 01/19/23 01/19/23 01/19/23 19:33 20:53 22:34 MCV MCH MCHC RDW Plt Count MPV Immature Gran % (Auto) Neut % (Auto) Lymph % (Auto) Marshall % (Auto) Eos % (Auto) Baso % (Auto) Lymph # (Auto) Marshall # (Auto) Eos # (Auto) Baso # (Auto) Abs Immat Gran (auto) Absolute Neuts (auto) Absolute Nucleated RBC Nucleated RBC % (auto) Smear Tech's Comments Anion Gap Estim Creat Clear Calc Estimated GFR Random Glucose Fasting Glucose Lactic Acid 7.4 H* 7.4 H* Lactic Acid F/U @ 2Hr 4.0 H* Lactic Acid F/U @ 4Hr Calcium Magnesium Total Bilirubin AST ALT Alkaline Phosphatase Troponin I High Sens Total Protein Albumin Lipase 01/19/23 01/20/23 01/20/23 22:34 01:36 05:47 MCV 85.3 84.1 MCH 28.5 28.7 MCHC 33.4 34.1 RDW 14.0 14.0 Plt Count 582 H 526 H MPV 8.4 L 8.7 L Immature Gran % (Auto) 0.8 H Neut % (Auto) 92.8 H Lymph % (Auto) 3.9 L Marshall % (Auto) 2.2 Eos % (Auto) 0.0 Baso % (Auto) 0.3 Lymph # (Auto) 0.7 L Marshall # (Auto) 0.4 Eos # (Auto) 0.0 Baso # (Auto) 0.1 Abs Immat Gran (auto) 0.14 H Absolute Neuts (auto) 17.2 H Absolute Nucleated RBC 0.000 0.000 Nucleated RBC % (auto) 0.0 0.0 Smear Tech's Comments VERIFIED Anion Gap Estim Creat Clear Calc Estimated GFR Random Glucose Fasting Glucose Lactic Acid Lactic Acid F/U @ 2Hr Lactic Acid F/U @ 4Hr 3.4 H* Calcium Magnesium Total Bilirubin AST ALT Alkaline Phosphatase Troponin I High Sens Total Protein Albumin Lipase 01/20/23 05:47 MCV MCH MCHC RDW Plt Count MPV Immature Gran % (Auto) Neut % (Auto) Lymph % (Auto) Marshall % (Auto) Eos % (Auto) Baso % (Auto) Lymph # (Auto) Marshall # (Auto) Eos # (Auto) Baso # (Auto) Abs Immat Gran (auto) Absolute Neuts (auto) Absolute Nucleated RBC Nucleated RBC % (auto) Smear Tech's Comments Anion Gap 18 Estim Creat Clear Calc 119.5 Estimated GFR > 60 Random Glucose Fasting Glucose 288 H Lactic Acid Lactic Acid F/U @ 2Hr Lactic Acid F/U @ 4Hr Calcium 8.9 D Magnesium Total Bilirubin AST ALT Alkaline Phosphatase Troponin I High Sens Total Protein Albumin Lipase Assessment and Plan (1) Acute osteomyelitis of left foot: Status: Acute Plan 48M PMH DM, with OM/DFU s/p multiple amputations, most recently 12/11/22 left 5th toe, anxiety, ptsd, presented with intractable nausea and vomiting severe sepsis due to DM complicated by diabetic foot ulcer with osteomyelitis and acute lactic acidosis vanc, cefepime 01/19 follow up cultures surgery did bed side debridment, ID eval dilaudid for pain DM with peripheral neuropathy insulin monitor pocs gabapentin dvt prophylaxis - lovenox full code need for inpatient: patient with singificnat infection, lactici acidosis, at risk for further decompensation, therefore needs IV Abx and further eval by consultants Time Spent With Patient Time: Total time managing care of this patient today ____ minutes. Quality Stroke Does the patient have a stroke diagnosis?: No VTE Prior VTE?: No VTE Risk Level:: Medical - moderate - high VTE Device Contraindication: Treatment Not Indicated VTE Drug Contraindication: N/A - Med Ordered
[2023-01-20 07:16] VITALS: BP 122/73; PULSE 91; RESP 18; TEMP 36.2; O2SAT 98
[2023-01-20 07:40] LABS: Glucose, Whole Blood 253 mg/dL (60-115)
[2023-01-20] MEDS: Insulin Lispro 100 UNIT/ML 3 ML VIAL SUBCUT ×4 (08:19→20:52)
[2023-01-20] MEDS: Cholecalciferol (Vitamin D3) 25 MCG TABLET 50 MCG PO (08:19)
[2023-01-20] MEDS: Cyanocobalamin (Vitamin B-12) 100 MCG TABLET 50 MCG PO (08:19)
[2023-01-20] MEDS: Ascorbic Acid 500 MG TABLET PO (08:20)
[2023-01-20] MEDS: Gabapentin 100 MG CAPSULE PO ×3 (08:20→20:38)
[2023-01-20] MEDS: 0.9 % Sodium Chloride Flush 3 ML SYRINGE IVFLUSH ×3 (08:20→23:41)
--- NOTE | 2023-01-20 08:41 | P.CONGS_ITS ---
History of Present Illness Consult details Consult date: 01/20/23 Narrative: 48-year-old male patient well known to service with prior history of diabetic foot ulcers status post amputation of the left 5th toe with prior amputation of the 3rd and 4th toes. [facility] and noted to have bone emanating from the wound. Patient subsequently developed c omplaints of abdominal pain in the upper abdomen associated with nausea and vomiting. He subsequently presented last evening to the emergency department for further evaluation. CT abdomen and pelvis was performed which revealed no acute findings. Surgical consultation was requested for management of the left foot wound. Review of Systems Review of Systems: Yes all other systems are reviewed and are negative PMFSH Past Medical History Medical History Acidosis, lactic Anxiety Bacteremia due to Streptococcus Bacterial infection due to Streptococcus, group C Cellulitis Diabetes type 2, controlled Diabetic foot ulcer associated with diabetes mellitus due to underlying c ondition GERD (gastroesophageal reflux disease) Marijuana smoker MRSA (methicillin resistant Staphylococcus aureus) Posttraumatic stress disorder Right foot infection Staphylococcus aureus bacteremia Surgical History Surgical History History of amputation (12/11/22) History of incision and drainage History of laparoscopic cholecystectomy History of partial amputation of toe (10/11/22) Social History Social History Household Members: None Housing: Other Housing Other:: refused to answer Do you presently have visiting nurse or other home services: No Unable to assess alcohol history related to: Refusing to respond Alcohol intake: never Patient Tobacco Use Status: Refuse Tobacco use screen Tobacco use type: Cigarette Cigarette Packs Per Day: 1 Cigarettes Per Day: 10 Years Smoked: 36 years Second Hand Smoke Exposure: No Use of substances other than those prescribed or required for medical reasons: Refusing to respond Substance Use Type: Unknown Last Used Substance: Unknown Currently Displaying Signs/Symptoms of Drug Intoxication Withdrawal: No Have you been hit, kicked, punched, or otherwise hurt by someone within the past year? If so, by whom?: No Is there a partner from a previous relationship who is making you feel unsafe now?: No Are you made to feel afraid or neglected: No Advance Directives: No Advance Directives Information Provided: No Do you have thoughts of harming others: None Do you have a plan to hurt others: No Plan Recently lost weight without trying: No How much weight loss: Not applicable Nutrition Risks: No Nutritional Risk Poor oral hygiene: No (unable to assess) service: No Current occupational status: disabled Meds Allergies Allergy/AdvReac Type Severity Reaction Status Date / Time amoxicillin [AMOXICILLIN] Allergy Severe ANAPHYLAXIS Verified 01/19/23 19:10 oxycodone [From Tylox] Allergy Intermediate Itching Verified 01/19/23 19:10 hydrocodone [HYDROCODONE] Allergy Unknown UNKNOWN Verified 01/19/23 19:10 Active Medications: Current Medications Ascorbic Acid (Ascorbic Acid 500 Mg Tablet) 500 mg PO DAILY [facility] Last Admin: 01/20/23 08:20 Dose: 500 mg Cyanocobalamin (Cyanocobalamin (Vitamin B-12) 100 Mcg Tablet) 50 mcg PO DAILY [facility] Last Admin: 01/20/23 08:19 Dose: 50 mcg Diphenhydramine HCl (Diphenhydramine Hcl 50 Mg/Ml Vial) 25 mg IVPUSH Q6H PRN PRN Reason: nasuea Enoxaparin Sodium (Enoxaparin Sodium 40 Mg/0.4 Ml Syringe) 40 mg SUBCUT Q24H [facility] Last Admin: 01/20/23 08:25 Dose: Not Given Gabapentin (Gabapentin 100 Mg Capsule) 100 mg PO TID [facility] Last Admin: 01/20/23 08:20 Dose: 100 mg Glucose (Glucose Gel 15 Gm Gel..Gram.) 15 gm PO Q15M PRN; Protocol PRN Reason: per Hypoglycemia Standing Ord. Hydromorphone HCl (Hydromorphone Hcl 0.5 Mg/0.5 Ml Syringe) 0.5 mg IVPUSH Q4H PRN; Protocol PRN Reason: moderate pain Dextrose (D10) 250 mls @ 750 mls/hr IV Q15M PRN; Protocol PRN Reason: per Hypoglycemia Standing Ord. Cefepime HCl 1 gm/ Sodium (Chloride) 50 mls @ 100 mls/hr IV Q8H [facility] Last Admin: 01/20/23 08:20 Dose: 100 mls/hr Insulin Human Lispro (Insulin Lispro 100 Unit/Ml 3 Ml Vial) 0 unit SUBCUT Q IDACHS [facility]; Protocol Last Admin: 01/20/23 08:19 Dose: 6 unit Pharmacy Consult (Consult Rx Vancomycin Dosing) 1 each MISCELLANE DAILY PRN PRN Reason: Consult order Sodium Chloride (0.9 % Sodium Chloride Flush 3 Ml Syringe) 3 ml IVFLUSH QSHIFT [facility] Last Admin: 01/20/23 08:20 Dose: 3 ml Vitamin D (Cholecalciferol (Vitamin D3) 25 Mcg Tablet) 50 mcg PO DAILY [facility] Last Admin: 01/20/23 08:19 Dose: 50 mcg Home Medications Medication Instructions Recorded Confirmed Last Taken Type cholecalciferol (vitamin D3) 50 50 mcg PO DAILY 11/04/21 01/19/23 12/07/22 History mcg (2,000 unit) capsule hydroxyzine HCl 25 mg tablet 25 mg PO QID PRN Anxiety 09/14/22 12/08/22 12/07/22 History gabapentin 100 mg capsule 100 mg PO TID 10/06/22 01/19/23 12/07/22 History metformin 500 mg tablet 500 mg PO BID 10/06/22 12/08/22 12/07/22 History ascorbic acid (vitamin C) 500 mg 500 mg PO DAILY 11/29/22 01/19/23 12/07/22 History tablet dulaglutide 1.5 mg/0.5 mL 1.5 mg subcut ALMENDAREZ 11/29/22 12/08/22 12/03/22 History subcutaneous pen injector (Trulicity) glipizide 5 mg tablet 10 mg PO DAILY 11/29/22 01/19/23 12/07/22 History cyanocobalamin (vitamin B-12) 50 50 mcg PO DAILY 12/08/22 01/19/23 12/07/22 History mcg tablet Physical Exam Vital Signs: Vital Signs: Last Vital Signs Temp 97.2 F 01/20/23 07:16 Pulse 91 01/20/23 07:16 Resp 18 01/20/23 07:16 BP 122/73 01/20/23 07:16 Pulse Ox 98 01/20/23 07:16 O2 Del Method Room Air 01/20/23 07:16 BMI result Body Mass Index 29.3 Const: General: no acute distress and well developed Nutritional Appearance: well nourished Orientation/consciousness: patient oriented x3 Limitations: no limitations HEENT: Head: Yes normocephalic and Yes atraumatic Ears: hearing grossly normal bilaterally Resp: Effort & Inspection: normal respiratory effort, no audible wheezes, no cough and no respiratory distress GI: Inspection: Yes normal to inspection Palpation (GI): Soft to palpation, nontender and no guarding Skin: General skin exam: no rashes or lesions noted Neuro: General: patient oriented x3 Extrem: Other: Dressings to left foot were changed. Wound noted at the region of the 5th distal metatarsal. Small amount of purulent discharge is noted from the wound. Gentle exploration of the wound did produce a small says moist bone which was easily removed using a forceps and hemostat. No surrounding erythema is appreciated. The wound was packed with silver alginate followed by dry sterile dressings, Kerlix . Results Labs 01/20/23 05:47 01/20/23 05:47 Labs: Abnormal lab results 01/19/23 01/19/23 01/19/23 Range/Units 19:10 19:10 19:33 WBC 19.5 H (4.8-10.8) X10*3/uL RBC 5.96 H (4.60-5.80) X10*6/uL Plt Count 659 H D (160-400) X10*3/uL MPV 8.3 L (9.4-12.4) fL Immature Gran % (Auto) 0.8 H (0.0-0.4) % Neut % (Auto) 78.5 H (45-73) % Lymph % (Auto) 14.0 L (20-40) % Lymph # (Auto) (1.2-4.9) X10*3/uL Abs Immat Gran (auto) 0.15 H (0.00-0.03) X10*3/uL Absolute Neuts (auto) 15.3 H (2.0-8.3) x10*3/uL Carbon Dioxide 20 L (22-29) mmol/L Anion Gap 21 H (12-20) POC Glucose (60-115) mg/dL Random Glucose 186 H (60-115) mg/dL Fasting Glucose (60-99) mg/dL Lactic Acid 7.4 H* (0.5-2.0) mmol/L Lactic Acid F/U @ 2Hr (0.5-2.0) mmol/L Lactic Acid F/U @ 4Hr (0.5-2.0) mmol/L 01/19/23 01/19/23 01/19/23 Range/Units 20:53 22:34 22:34 WBC 18.5 H (4.8-10.8) X10*3/uL RBC (4.60-5.80) X10*6/uL Plt Count 582 H (160-400) X10*3/uL MPV 8.4 L (9.4-12.4) fL Immature Gran % (Auto) 0.8 H (0.0-0.4) % Neut % (Auto) 92.8 H (45-73) % Lymph % (Auto) 3.9 L (20-40) % Lymph # (Auto) 0.7 L (1.2-4.9) X10*3/uL Abs Immat Gran (auto) 0.14 H (0.00-0.03) X10*3/uL Absolute Neuts (auto) 17.2 H (2.0-8.3) x10*3/uL Carbon Dioxide (22-29) mmol/L Anion Gap (12-20) POC Glucose (60-115) mg/dL Random Glucose (60-115) mg/dL Fasting Glucose (60-99) mg/dL Lactic Acid 7.4 H* (0.5-2.0) mmol/L Lactic Acid F/U @ 2Hr 4.0 H* (0.5-2.0) mmol/L Lactic Acid F/U @ 4Hr (0.5-2.0) mmol/L 01/20/23 01/20/23 01/20/23 Range/Units 01:36 05:47 05:47 WBC 15.2 H (4.8-10.8) X10*3/uL RBC (4.60-5.80) X10*6/uL Plt Count 526 H (160-400) X10*3/uL MPV 8.7 L (9.4-12.4) fL Immature Gran % (Auto) (0.0-0.4) % Neut % (Auto) (45-73) % Lymph % (Auto) (20-40) % Lymph # (Auto) (1.2-4.9) X10*3/uL Abs Immat Gran (auto) (0.00-0.03) X10*3/uL Absolute Neuts (auto) (2.0-8.3) x10*3/uL Carbon Dioxide 19 L (22-29) mmol/L Anion Gap (12-20) POC Glucose (60-115) mg/dL Random Glucose (60-115) mg/dL Fasting Glucose 288 H (60-99) mg/dL Lactic Acid (0.5-2.0) mmol/L Lactic Acid F/U @ 2Hr (0.5-2.0) mmol/L Lactic Acid F/U @ 4Hr 3.4 H* (0.5-2.0) mmol/L 01/20/23 Range/Units 07:19 WBC (4.8-10.8) X10*3/uL RBC (4.60-5.80) X10*6/uL Plt Count (160-400) X10*3/uL MPV (9.4-12.4) fL Immature Gran % (Auto) (0.0-0.4) % Neut % (Auto) (45-73) % Lymph % (Auto) (20-40) % Lymph # (Auto) (1.2-4.9) X10*3/uL Abs Immat Gran (auto) (0.00-0.03) X10*3/uL Absolute Neuts (auto) (2.0-8.3) x10*3/uL Carbon Dioxide (22-29) mmol/L Anion Gap (12-20) POC Glucose 253 H (60-115) mg/dL Random Glucose (60-115) mg/dL Fasting Glucose (60-99) mg/dL Lactic Acid (0.5-2.0) mmol/L Lactic Acid F/U @ 2Hr (0.5-2.0) mmol/L Lactic Acid F/U @ 4Hr (0.5-2.0) mmol/L Short CBC 01/19/23 01/19/23 01/20/23 Range/Units 19:10 22:34 05:47 WBC 19.5 H 18.5 H 15.2 H (4.8-10.8) X10*3/uL Hgb 17.1 16.5 16.4 (14.0-18.0) g/dl Hct 51.0 49.4 48.1 (42.0-52.0) % Plt Count 659 H D 582 H 526 H (160-400) X10*3/uL BMP 01/19/23 01/20/23 19:10 05:47 Sodium 140 139 Potassium 3.8 4.4 Chloride 103 106 Carbon Dioxide 20 L 19 L BUN 13 11 Creatinine 1.16 0.83 Calcium 9.8 D 8.9 D Liver Function 01/19/23 Range/Units 19:10 Total Bilirubin 0.5 (0.0-1.0) mg/dL AST 17 (5-37) U/L ALT 36 (0-40) U/L Alkaline Phosphatase 73 (39-117) U/L Albumin 4.4 (3.5-5.0) g/dL All other labs normal. Assessment and Plan (1) Acute osteomyelitis of left foot: Status: Acute Plan 48-year-old male patient with history of diabetic foot ulcers status post amputation of the left 5th toe now with an open wound. Wound exploration did produce a small sesamoid bone which was easily removed. Wounds were packed with silver alginate followed by dry sterile dressings. Patient is clear for discharge from my standpoint and should follow up in the office next week. He should continue with VNA for dressing changes. Time Spent With Patient Time: Total time managing care of this patient today ____ minutes. Procedures Date of Service Date of Service: 01/20/23
--- NOTE | 2023-01-20 09:22 | PHA.MEDREC ---
Addendum entered by Mendy Mclain RPh 01/20/23 09:47: almaz reviewed med rec Original Note: Pharmacy Consult ? Medication Reconciliation Pharmacy has completed the medication reconciliation Spoke to patient to confirm meds. Patient states they do not recall still taking cefuroxime or doxycycline. Patient states they are sure the only antibiotics they are on at home is levofloxacin and metronidazole.
[2023-01-20] MEDS: Magnesium Hydrox/Alum Hydrox 30 ML ORAL.SUSP PO ×3 (10:54→19:23)
--- NOTE | 2023-01-20 11:01 | PHA.PROG ---
Admission Date/Time: January 19, 2023 23:51 Indication: BONE AND JOINT INF Weight in k.265 kg Adjusted body weight in K KG Hunter body weight in K.7 Obesity Dosing Indication % IBW: Serum Creatinine - Last 168 Hours 01/19/23 01/20/23 19:10 05:47 Creatinine 1.16 0.83 Estimated CrCl and GFR - Last 168 Hours 01/19/23 01/20/23 19:10 05:47 Estim Creat Clear Calc 85.5 119.5 Estimated GFR > 60 > 60 Vancomycin Loading Dose: 2000 MG X1 Current Vancomycin Dosing Regimen: 1250 MG Q12H Vancomycin Monitoring using AUC goal of 400 - 600 range with trough as surrogate marker: PREDICTED AUC 489 TROUGH 14.9 Date and Time for next Vancomycin Level to be drawn: 01/21/23 @0900 Pharmacist Comments on Vancomycin Plan: Vancomycin dosing will take advantage of [employer] as a clinical decision support tool that uses Bayesian modeling to calculate individual patient's pharmacokinetic parameters and forecast the patient's drug concentration time course with the target goal AUC 24 range of 400 - 600 mg/L/hr.
[2023-01-20 11:30] LABS: Glucose, Whole Blood 187 mg/dL (60-115)
[2023-01-20] MEDS: vancomycin HCL 1,250 MG in 0.9 % Sodium Chloride 250 ML 166.67 MG IV ×2 (11:53→22:53)
[2023-01-20 14:56] VITALS: BP 112/61; PULSE 87; RESP 18; TEMP 36.9; O2SAT 97
--- NOTE | 2023-01-20 15:56 | MHC.CM.PN ---
Addendum entered by Margarita Haas 01/21/23 08:59: PCP: CAROLINE RASMUSSEN Original Note: PT LIVES ALONE AND IS INDEPENDENT WITH CARE HE HAS A WALKER AND NO OTHER DME HE IS ACTIVE WITH [facility] AND [facility] HE IS COVID VAX AND BOOSTED PCP UNKNOWN HE DECLINES TO COMPLETE A HCP DCP: [facility]
--- NOTE | 2023-01-20 16:01 | P.CNID_ITS ---
History of Present Illness Data of Consult Service Date: 01/20/23 Requesting physician: Jeffery Perez Primary Care Provider: Unknown Physician HPI Reason for consult: nausea and vomiting,chronic left toe infection He presents with nausea and vomiting last two days. CT abdomen and pelvis unremarkable except decompressed stomach. He took his last Levaquin and Flagyl on 01/19 yesterday for foot infection. I had seen him in house on 12/09 for left fifth toe osteomyelitis. He had amputation left fifth toe on 12/11. He left hospital on 12/13 with 10 days Doxycycline and Ceftin which he took. [facility] He had culture left foot wound in [facility] and on 01/05 it was MRSA and corynebacterium .MRSA resistant to tetracycline and sensitive to Vancomycin and Bactrim. He had Levaquin and Flagyl given one week ago. He had wound 12/11 Group G strep and MSSA 11/03/2022 he had blood MSSA and Group C strep. Now he has left foot XR erosive changes cortical bone amputation recent site 4th/5th toes and erosion proximal fifth metatarsal. He has elevated WBC and tachycardia and LA of 7.0 Review of Systems Review of Systems: Yes all other systems are reviewed and are negative PMFSH Past Medical History Medical History (Updated 01/20/23 @ 16:09 by Cathie Guo MD) Acidosis, lactic Anxiety Bacteremia due to Streptococcus Bacterial infection due to Streptococcus, group C Cellulitis Diabetes type 2, controlled 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 GERD (gastroesophageal reflux disease) Marijuana smoker MRSA (methicillin resistant Staphylococcus aureus) Nausea and vomiting Posttraumatic stress disorder Right foot infection Staphylococcus aureus bacteremia Family History Family history: reviewed and not pertinent Surgical History Surgical History History of amputation (12/11/22) History of incision and drainage History of laparoscopic cholecystectomy History of partial amputation of toe (10/11/22) Social History Social History Household Members: None Housing: Other Housing Other:: refused to answer Do you presently have visiting nurse or other home services: No Unable to assess alcohol history related to: Refusing to respond Alcohol intake: never Patient Tobacco Use Status: Refuse Tobacco use screen Tobacco use type: Cigarette Cigarette Packs Per Day: 1 Cigarettes Per Day: 10 Years Smoked: 36 years Second Hand Smoke Exposure: No Use of substances other than those prescribed or required for medical reasons: Refusing to respond Substance Use Type: Unknown Last Used Substance: Unknown Currently Displaying Signs/Symptoms of Drug Intoxication Withdrawal: No Have you been hit, kicked, punched, or otherwise hurt by someone within the past year? If so, by whom?: No Is there a partner from a previous relationship who is making you feel unsafe now?: No Are you made to feel afraid or neglected: No Advance Directives: No Advance Directives Information Provided: No Do you have thoughts of harming others: None Do you have a plan to hurt others: No Plan Recently lost weight without trying: No How much weight loss: Not applicable Nutrition Risks: No Nutritional Risk Poor oral hygiene: No (unable to assess) service: No Current occupational status: disabled Meds Allergies Allergy/AdvReac Type Severity Reaction Status Date / Time amoxicillin [AMOXICILLIN] Allergy Severe ANAPHYLAXIS Verified 01/19/23 19:10 oxycodone [From Tylox] Allergy Intermediate Itching Verified 01/19/23 19:10 hydrocodone [HYDROCODONE] Allergy Unknown UNKNOWN Verified 01/19/23 19:10 Active Medications: Current Medications Al Hydroxide/Mg Hydroxide (Magnesium Hydrox/Alum Hydrox 30 Ml Oral.Susp) 30 ml PO Q6H PRN PRN Reason: Heartburn Last Admin: 01/20/23 12:45 Dose: 30 ml Ascorbic Acid (Ascorbic Acid 500 Mg Tablet) 500 mg PO DAILY [facility] Last Admin: 01/20/23 08:20 Dose: 500 mg Calcium Carbonate (Calcium Carbonate 750 Mg Tab.Chew) 750 mg PO Q6H PRN PRN Reason: Heartburn Cyanocobalamin (Cyanocobalamin (Vitamin B-12) 100 Mcg Tablet) 50 mcg PO DAILY [facility] Last Admin: 01/20/23 08:19 Dose: 50 mcg Diphenhydramine HCl (Diphenhydramine Hcl 50 Mg/Ml Vial) 25 mg IVPUSH Q6H PRN PRN Reason: nasuea Enoxaparin Sodium (Enoxaparin Sodium 40 Mg/0.4 Ml Syringe) 40 mg SUBCUT Q24H [facility] Last Admin: 01/20/23 08:25 Dose: Not Given Gabapentin (Gabapentin 100 Mg Capsule) 100 mg PO TID [facility] Last Admin: 01/20/23 14:15 Dose: 100 mg Glucose (Glucose Gel 15 Gm Gel..Gram.) 15 gm PO Q15M PRN; Protocol PRN Reason: per Hypoglycemia Standing Ord. Hydromorphone HCl (Hydromorphone Hcl 0.5 Mg/0.5 Ml Syringe) 0.5 mg IVPUSH Q4H PRN; Protocol PRN Reason: moderate pain Dextrose (D10) 250 mls @ 750 mls/hr IV Q15M PRN; Protocol PRN Reason: per Hypoglycemia Standing Ord. Cefepime HCl 1 gm/ Sodium (Chloride) 50 mls @ 100 mls/hr IV Q8H [facility] Last Infusion: 01/20/23 09:57 Dose: Infused Vancomycin HCl 1,250 mg/ (Sodium Chloride) 250 mls @ 166.667 mls/hr IV Q12H [facility] Last Infusion: 01/20/23 13:39 Dose: Infused Insulin Human Lispro (Insulin Lispro 100 Unit/Ml 3 Ml Vial) 0 unit SUBCUT QIDACHS [facility]; Protocol Last Admin: 01/20/23 11:53 Dose: 2 unit Pharmacy Consult (Consult Rx Vancomycin Dosing) 1 each MISCELLANE DAILY PRN PRN Reason: Consult order Sodium Chloride (0.9 % Sodium Chloride Flush 3 Ml Syringe) 3 ml IVFLUSH QSHIFT [facility] Last Admin: 01/20/23 08:20 Dose: 3 ml Vitamin D (Cholecalciferol (Vitamin D3) 25 Mcg Tablet) 50 mcg PO DAILY [facility] Last Admin: 01/20/23 08:19 Dose: 50 mcg Home Medications Medication Instructions Recorded Confirmed Last Taken Type cholecalciferol (vitamin D3) 50 50 mcg PO DAILY 11/04/21 01/19/23 01/19/23 History mcg (2,000 unit) capsule hydroxyzine HCl 25 mg tablet 25 mg PO QID PRN Anxiety 09/14/22 01/20/23 12/07/22 History gabapentin 100 mg capsule 200 mg PO TID 10/06/22 01/20/23 01/19/23 History metformin 500 mg tablet 500 mg PO BID 10/06/22 01/20/23 01/19/23 History ascorbic acid (vitamin C) 500 mg 500 mg PO DAILY 11/29/22 01/19/23 01/19/23 History tablet dulaglutide 1.5 mg/0.5 mL 1.5 mg subcut ALMENDAREZ 11/29/22 01/20/23 01/19/23 History subcutaneous pen injector (Trulicity) glipizide 5 mg tablet 10 mg PO DAILY 11/29/22 01/20/23 01/19/23 History cyanocobalamin (vitamin B-12) 50 50 mcg PO DAILY 12/08/22 01/19/23 01/19/23 History mcg tablet Physical Exam Vital Signs: Vital Signs: Last Vital Signs Temp 98.5 F 01/20/23 14:56 Pulse 87 01/20/23 14:56 Resp 18 01/20/23 14:56 BP 112/61 01/20/23 14:56 Pulse Ox 97 01/20/23 14:56 O2 Del Method Room Air 01/20/23 14:56 BMI result Body Mass Index 29.3 Const: General: cooperative HEENT: Head: Yes normal to inspection Face and sinus: Yes normal facial exam Mouth: Normal oral and palatal mucosa present Teeth and gingiva: dentition normal Eyes: General: appearance normal, both eyes and all related structures Pupils: Equal, round and reactive pupils present Resp: Effort & Inspection: normal respiratory effort Cardio: Rate: regular rate Rhythm: regular rhythm GI: Palpation (GI): Soft to palpation and nontender : General: Yes no CVA tenderness Back/Spine/Pelvis: Back: no CVA tenderness Skin: General skin exam: no rashes or lesions noted Neuro: General: moves all extremities Cranial nerves: Yes Equal, round and reactive pupils present Extrem: Other: wrapped foot,no cellulitis Psych: Appearance: grossly normal Results Labs 01/20/23 05:47 01/20/23 05:47 Labs: Short CBC 01/19/23 01/19/23 01/20/23 Range/Units 19:10 22:34 05:47 WBC 19.5 H 18.5 H 15.2 H (4.8-10.8) X10*3/uL Hgb 17.1 16.5 16.4 (14.0-18.0) g/dl Hct 51.0 49.4 48.1 (42.0-52.0) % Plt Count 659 H D 582 H 526 H (160-400) X10*3/uL BMP 01/19/23 01/20/23 19:10 05:47 Sodium 140 139 Potassium 3.8 4.4 Chloride 103 106 Carbon Dioxide 20 L 19 L BUN 13 11 Creatinine 1.16 0.83 Calcium 9.8 D 8.9 D Liver Function 01/19/23 Range/Units 19:10 Total Bilirubin 0.5 (0.0-1.0) mg/dL AST 17 (5-37) U/L ALT 36 (0-40) U/L Alkaline Phosphatase 73 (39-117) U/L Albumin 4.4 (3.5-5.0) g/dL Microbiology Microbiology Results: Microbiology 01/19/23 20:53 Blood - Venous Blood Culture - Final Assessment and Plan (1) 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: Status: Acute He has recetn amputation last month Dr Singh is following There is no gangrene or cellulitis There is new infection with MRSA which may be contributory to current sepsis. (2) Nausea and vomiting: Status: Acute Nausea and vomiting may be due to sepsis from MRSA foot or intolerance to Levaquin and Flagyl or both Plan Continue Vancomycin, needs six weeks IV if no definitive amputation. Surgery continued evaluation ?amputation foot due to ongoing infection or six weeks IV Vancomycin Stop Cefepime as no evidence of other infection and I believe has side effects from antibiotics already (Levaquin and Flagyl and they dont cover MRSA). Time Spent With Patient Time: Total time managing care of this patient today ____ minutes.
[2023-01-20 16:17] LABS: Glucose, Whole Blood 195 mg/dL (60-115)
[2023-01-20] MEDS: Calcium Carbonate 750 MG TAB.CHEW PO ×2 (16:18→22:53)
[2023-01-20] MEDS: HYDROmorphone HCl 0.5 MG/0.5 ML SYRINGE IVPUSH ×2 (16:19→20:37)
[2023-01-20 19:49] VITALS: BP 125/65; PULSE 84; RESP 18; TEMP 36.6; O2SAT 98
[2023-01-20 20:24] LABS: Glucose, Whole Blood 174 mg/dL (60-115)
[2023-01-20] MEDS: diphenhydrAMINE HCL 50 MG/ML VIAL 25 MG IVPUSH (23:40)
[2023-01-21 03:16] VITALS: BP 130/73; PULSE 71; RESP 16; TEMP 36.4; O2SAT 96
[2023-01-21] MEDS: ondansetron HCL 4 MG/2 ML VIAL IVPUSH ×2 (04:40→20:03)
--- NOTE | 2023-01-21 04:58 | PC.NURSE ---
VSS. Pt c/o hiccups. heartburn, nausea and vomiting at different times throughout the shift. Pt wanted to know why the doctors and nurses didn't know why he was having these stomach issues. I explained he was admitted for infection and he said, where? I discussed why he was admitted and how we were treating it. I said we are trying to help his stomach issues with antacids and Benadryl and Zofran for the N/V. Pt sleeping intermittently after being medicated each time. No c/o pain at present time. Call hi within reach. Pt's right and left foot dressings-CD&I. +CMS. +pp. Will continue to monitor.
[2023-01-21 07:08] VITALS: BP 135/74; PULSE 79; RESP 18; TEMP 36.5; O2SAT 98
[2023-01-21 07:20] LABS: Glucose, Whole Blood 189 mg/dL (60-115)
[2023-01-21] MEDS: diphenhydrAMINE HCL 50 MG/ML VIAL 25 MG IVPUSH (08:45)
[2023-01-21] MEDS: HYDROmorphone HCl 0.5 MG/0.5 ML SYRINGE IVPUSH ×2 (08:45→20:06)
[2023-01-21] MEDS: Insulin Lispro 100 UNIT/ML 3 ML VIAL SUBCUT ×2 (08:45→11:47)
--- NOTE | 2023-01-21 08:55 | P.PNGS_ITS ---
Subjective Subjective Date of Service: 01/21/23 Interval history: Patient reports continued abdominal pain, nausea and vomiting. Denies any pain in the feet. Physical Exam Vital Signs: Vital Signs: Last Vital Signs Temp 97.7 F 01/21/23 07:08 Pulse 79 01/21/23 07:08 Resp 18 01/21/23 07:08 BP 135/74 01/21/23 07:08 Pulse Ox 98 01/21/23 07:08 O2 Del Method Room Air 01/21/23 07:08 BMI result Body Mass Index 29.3 Const: General: alert and tired appearing Nutritional Appearance: well nourished Orientation/consciousness: patient oriented x3 Resp: Effort & Inspection: normal respiratory effort, no audible wheezes, no cough and no respiratory distress GI: Inspection: Yes normal to inspection Palpation (GI): Soft to palpation, nontender, no guarding, not rigid and No Rebound tenderness present Percussion: Yes normal to percussion Rectal Exam - Male: Yes deferred Skin: Other: Foot ulcers as noted below Neuro: General: patient oriented x3 Extrem: Other: bilateral feet dressings changed. Right foot reveals 2 small open wounds which were packed with silver alginate. One is located in the medial foot over the distal 1st metatarsal and measures less than 1 cm in diameter. The 2nd is in the lateral foot over the 5th metatarsal measuring less than 0.5 cm. No erythema, necrosis, or abscess is identified. Wounds were repacked in for with dry sterile dressings. Left foot was redressed. Open wound at the 5th metatarsal stump remains open and draining. Discharge is mainly bloody at this time. No further bony fragments are identified with gentle exploration of the wound. No surrounding erythema, fluctuance, tenderness, or skin necrosis. Wounds were repacked with silver alginate covered with dry sterile dressings. Objective Data Active Medications Al Hydroxide/Mg Hydroxide (Magnesium Hydrox/Alum Hydrox 30 Ml Oral.Susp) 30 ml PO Q6H PRN PRN Reason: Heartburn Last Admin: 01/20/23 19:23 Dose: 30 ml Documented By: ANA ROSA Ascorbic Acid (Ascorbic Acid 500 Mg Tablet) 500 mg PO DAILY [facility] Last Admin: 01/20/23 08:20 Dose: 500 mg Documented By: SYDNEY Calcium Carbonate (Calcium Carbonate 750 Mg Tab.Chew) 750 mg PO Q6H PRN PRN Reason: Heartburn Last Admin: 01/20/23 22:53 Dose: 750 mg Documented By: ANA ROSA Cyanocobalamin (Cyanocobalamin (Vitamin B-12) 100 Mcg Tablet) 50 mcg PO DAILY REPLACED BY [facility] Last Admin: 01/20/23 08:19 Dose: 50 mcg Documented By: SYDNEY Diphenhydramine HCl (Diphenhydramine Hcl 50 Mg/Ml Vial) 25 mg IVPUSH Q6H PRN PRN Reason: nasuea Last Admin: 01/21/23 08:45 Dose: 25 mg Documented By: SYDNEY Enoxaparin Sodium (Enoxaparin Sodium 40 Mg/0.4 Ml Syringe) 40 mg SUBCUT Q24H REPLACED BY [facility] Last Admin: 01/20/23 08:25 Dose: Not Given Documented By: SYDNEY Non-Admin Reason: Patient Refused Gabapentin (Gabapentin 100 Mg Capsule) 100 mg PO TID REPLACED BY [facility] Last Admin: 01/20/23 20:38 Dose: 100 mg Documented By: ANA ROSA Glucose (Glucose Gel 15 Gm Gel..Gram.) 15 gm PO Q15M PRN; Protocol PRN Reason: per Hypoglycemia Standing Ord. Hydromorphone HCl (Hydromorphone Hcl 0.5 Mg/0.5 Ml Syringe) 0.5 mg IVPUSH Q4H PRN; Protocol PRN Reason: moderate pain Last Admin: 01/21/23 08:45 Dose: 0.5 mg Documented By: SYDNEY Dextrose (D10) 250 mls @ 750 mls/hr IV Q15M PRN; Protocol PRN Reason: per Hypoglycemia Standing Ord. Vancomycin HCl 1,250 mg/ (Sodium Chloride) 250 mls @ 166.667 mls/hr IV Q12H REPLACED BY [facility] Last Infusion: 01/21/23 00:23 Dose: 0 mls/hr Documented By: NASRIN Insulin Human Lispro (Insulin Lispro 100 Unit/Ml 3 Ml Vial) 0 unit SUBCUT QIDACHS REPLACED BY [facility]; Protocol Last Admin: 01/20/23 20:52 Dose: 2 unit Documented By: ANA ROSA Ondansetron HCl (Ondansetron Hcl 4 Mg/2 Ml Vial) 4 mg IVPUSH Q6H PRN PRN Reason: Nausea Last Admin: 01/21/23 04:40 Dose: 4 mg Documented By: NASRIN Pharmacy Consult (Consult Rx Vancomycin Dosing) 1 each MISCELLANE DAILY PRN PRN Reason: Consult order Sodium Chloride (0.9 % Sodium Chloride Flush 3 Ml Syringe) 3 ml IVFLUSH QSHIFT REPLACED BY [facility] Last Admin: 01/20/23 23:41 Dose: 3 ml Documented By: NASRIN Vitamin D (Cholecalciferol (Vitamin D3) 25 Mcg Tablet) 50 mcg PO DAILY REPLACED BY [facility] Last Admin: 01/20/23 08:19 Dose: 50 mcg Documented By: SYDNEY Labs 01/20/23 05:47 01/20/23 05:47 Labs: Laboratory Results - last 24 hr 01/20/23 01/20/23 01/20/23 11:22 16:13 20:20 POC Glucose 187 H 195 H 174 H 01/21/23 07:11 POC Glucose 189 H Microbiology Microbiology Results: Microbiology 01/19/23 21:29 Blood Culture - Preliminary Blood - Venous No growth after 24 hours. 01/19/23 20:52 Blood Culture - Preliminary Blood - Venous No growth after 24 hours. 01/19/23 20:53 Blood Culture - Final Blood - Venous Procedures Date of Service Date of Service: 01/21/23 Progress Note: A&P Assessment and plan (1) Acute osteomyelitis of left foot: Status: Acute (2) Nausea and vomiting: Status: Acute Plan Patient with persistent abdominal pain, hiccups, nausea and vomiting with a normal CT abdomen and pelvis. Etiology remains uncertain at this time. Patient previously underwent cholecystectomy. There is no evidence of small-bowel obstruction or gastric dilatation. WBC yesterday is improved but still elevated at 15. Wound check today revealed no undrained abscess or skin necrosis. Mainly bloody discharge noted from the left foot at this time. Persistent WBC is presumably due to osteomyelitis at the 4/5 distal metatarsal stump. Will continue local wound care; antibiotics per Infectious Disease. Time Spent With Patient Time: Total time managing care of this patient today ____ minutes. Quality Stroke Does the patient have a stroke diagnosis?: No VTE Prior VTE?: No VTE Risk Level:: Medical - moderate - high VTE Device Contraindication: Treatment Not Indicated VTE Drug Contraindication: N/A - Med Ordered
[2023-01-21 09:25] LABS: Estimated Glomerular Filt Rate > 60; Vancomycin Trough 11.8 mcg/mL (10.0-20.0)
--- NOTE | 2023-01-21 09:38 | HE.PHANOTE ---
Vancomycin Dosing Addendum Trough 11.8, increasing dose to 1500 mg q12h for predicted auc of 504. Next trough 01/22/23 @0900.
[2023-01-21] MEDS: 0.9 % Sodium Chloride Flush 3 ML SYRINGE IVFLUSH ×2 (09:56→18:09)
--- NOTE | 2023-01-21 10:29 | HO.PM.IMPN ---
Subjective Subjective Date of Service: 01/21/23 Interval History: Seen and evaluated this morning Complaining of abd discomfort, nausea and vomiting no reported fever WBCs trending down Review of Systems Review of Systems: Yes all other systems are reviewed and are negative Physical Exam Vital Signs: Vital Signs: Last Vital Signs Temp 97.7 F 01/21/23 07:08 Pulse 79 01/21/23 07:08 Resp 18 01/21/23 07:08 BP 135/74 01/21/23 07:08 Pulse Ox 98 01/21/23 07:08 O2 Del Method Room Air 01/21/23 07:08 BMI result Body Mass Index 29.3 Const: Other: Constitutional : Awake, interactive, not in distress Neck : Normal inspection, Supple Cardiovascular : RRR, no JVP, no lower extremity edema Respiratory : good bilateral air entry, no crackles, wheezes or rhonchi Gastrointestinal: soft, lax, Normal bowel sounds, mild generalized tenderness with no surgical signs Skin : Warm, Dry, Rt foot with 2 small wounds covered with dressing. Left goot w somall 5th stump open and draining. Neurological : Alert & oriented x3, No focal deficit Objective Data Active Medications Al Hydroxide/Mg Hydroxide (Magnesium Hydrox/Alum Hydrox 30 Ml Oral.Susp) 30 ml PO Q6H PRN PRN Reason: Heartburn Last Admin: 01/20/23 19:23 Dose: 30 ml Documented By: ANA ROSA Ascorbic Acid (Ascorbic Acid 500 Mg Tablet) 500 mg PO DAILY [facility] Last Admin: 01/20/23 08:20 Dose: 500 mg Documented By: SYDNEY Calcium Carbonate (Calcium Carbonate 750 Mg Tab.Chew) 750 mg PO Q6H PRN PRN Reason: Heartburn Last Admin: 01/20/23 22:53 Dose: 750 mg Documented By: ANA ROSA Cyclobenzaprine HCl (Cyclobenzaprine Hcl 5 Mg Tablet) 5 mg PO TID [facility] Diphenhydramine HCl (Diphenhydramine Hcl 50 Mg/Ml Vial) 25 mg IVPUSH Q6H PRN PRN Reason: nasuea Last Admin: 01/21/23 08:45 Dose: 25 mg Documented By: SYDNEY Enoxaparin Sodium (Enoxaparin Sodium 40 Mg/0.4 Ml Syringe) 40 mg SUBCUT Q24H [facility] Last Admin: 01/20/23 08:25 Dose: Not Given Documented By: SYDNEY Non-Admin Reason: Patient Refused Famotidine (Famotidine/Pf 20 Mg/2 Ml Vial) 20 mg IVPUSH BID [facility] Gabapentin (Gabapentin 100 Mg Capsule) 100 mg PO TID [facility] Last Admin: 01/20/23 20:38 Dose: 100 mg Documented By: ANA ROSA Glucose (Glucose Gel 15 Gm Gel..Gram.) 15 gm PO Q15M PRN; Protocol PRN Reason: per Hypoglycemia Standing Ord. Hydromorphone HCl (Hydromorphone Hcl 0.5 Mg/0.5 Ml Syringe) 0.5 mg IVPUSH Q4H PRN; Protocol PRN Reason: moderate pain Last Admin: 01/21/23 08:45 Dose: 0.5 mg Documented By: SYDNEY Dextrose (D10) 250 mls @ 750 mls/hr IV Q15M PRN; Protocol PRN Reason: per Hypoglycemia Standing Ord. Vancomycin HCl 1,500 mg/ (Sodium Chloride) 500 mls @ 333.333 mls/hr IV Q12H [facility] Promethazine HCl 6.25 mg/ (Sodium Chloride) 50.25 mls @ 201 mls/hr IV ONCE ONE Stop: 01/21/23 10:22 Insulin Human Lispro (Insulin Lispro 100 Unit/Ml 3 Ml Vial) 0 unit SUBCUT QIDACHS [facility]; Protocol Last Admin: 01/21/23 08:45 Dose: 2 unit Documented By: SYDNEY Ondansetron HCl (Ondansetron Hcl 4 Mg/2 Ml Vial) 4 mg IVPUSH Q6H PRN PRN Reason: Nausea Last Admin: 01/21/23 04:40 Dose: 4 mg Documented By: NASRIN Pharmacy Consult (Consult Rx Vancomycin Dosing) 1 each MISCELLANE DAILY PRN PRN Reason: Consult order Sodium Chloride (0.9 % Sodium Chloride Flush 3 Ml Syringe) [facility] Last Admin: 01/21/23 09:56 Dose: 3 ml Documented By: SYDNEY Labs 01/20/23 05:47 01/21/23 08:58 Labs: Laboratory Results - last 24 hr 01/20/23 01/20/23 01/20/23 11:22 16:13 20:20 Estim Creat Clear Calc Estimated GFR POC Glucose 187 H 195 H 174 H Vancomycin Trough 01/21/23 01/21/23 01/21/23 07:11 08:58 08:58 Estim Creat Clear Calc 124.0 Estimated GFR > 60 POC Glucose 189 H Vancomycin Trough 11.8 Microbiology Microbiology Results: Microbiology 01/19/23 21:29 Blood Culture - Preliminary Blood - Venous No growth after 24 hours. 01/19/23 20:52 Blood Culture - Preliminary Blood - Venous No growth after 24 hours. 01/19/23 20:53 Blood Culture - Final Blood - Venous Assessment and Plan (1) Nausea and vomiting: Status: Acute (2) Acute osteomyelitis of left foot: Status: Acute (3) Sepsis: Status: Acute Plan 48M PMH DM, with OM/DFU s/p multiple amputations, most recently 12/11/22 left 5th toe, anxiety, ptsd, presented with intractable nausea and vomiting severe sepsis due to DM complicated by Left foot diabetic foot ulcer with osteomyelitis and acute lactic acidosis Continue with Vancomycin 01/19 follow up cultures surgery did bed side debridment ID input appreciated dilaudid for pain To place PICC for 6 weeks of IV Abx Nausea and vomiting Could be 2/2 Infection, Abx CT negative for acute findings Surgery eval no acute abd. try Famotidine, phenergan advance diet as tolerated DM with peripheral neuropathy insulin monitor pocs gabapentin dvt prophylaxis lovenox full code need for inpatient: patient with singificnat infection at risk for further decompensation, will need IV Abx and PICC line placement for safe discharge plan Time Spent With Patient Time: Total time managing care of this patient today ____ minutes. Quality Stroke Does the patient have a stroke diagnosis?: No VTE Prior VTE?: No VTE Risk Level:: Medical - moderate - high VTE Device Contraindication: Treatment Not Indicated VTE Drug Contraindication: N/A - Med Ordered
[2023-01-21 11:12] LABS: Glucose, Whole Blood 158 mg/dL (60-115)
[2023-01-21] MEDS: Enoxaparin Sodium 40 MG/0.4 ML SYRINGE SUBCUT (11:15)
[2023-01-21] MEDS: Famotidine/PF 20 MG/2 ML VIAL IVPUSH ×2 (11:15→20:05)
[2023-01-21] MEDS: Cyclobenzaprine HCl 5 MG TABLET PO ×3 (11:15→20:09)
[2023-01-21] MEDS: Gabapentin 100 MG CAPSULE PO ×2 (11:15→14:44)
[2023-01-21] MEDS: vancomycin HCL 1,500 MG in 0.9 % Sodium Chloride 500 ML 333.33 MG IV ×2 (11:35→22:19)
[2023-01-21 15:33] VITALS: BP 135/76; PULSE 80; RESP 20; TEMP 36.5; O2SAT 97
[2023-01-21 16:43] LABS: Glucose, Whole Blood 129 mg/dL (60-115)
[2023-01-21 19:52] VITALS: BP 131/73; PULSE 74; RESP 16; TEMP 36.2; O2SAT 99
[2023-01-21 19:54] LABS: Glucose, Whole Blood 143 mg/dL (60-115)
[2023-01-21] MEDS: Gabapentin 100 MG CAPSULE 200 MG PO (20:08)
[2023-01-22] MEDS: 0.9 % Sodium Chloride Flush 3 ML SYRINGE IVFLUSH ×2 (00:02→07:56)
[2023-01-22 03:15] VITALS: BP 128/68; PULSE 60; RESP 18; TEMP 36.3; O2SAT 95
[2023-01-22 07:11] VITALS: BP 107/67; PULSE 75; RESP 18; TEMP 36.1; O2SAT 99
[2023-01-22 07:16] LABS: INTERNATIONAL NORM RATIO 1.1 (0.9-1.1); Prothrombin Time 13.2 SEC (10.0-13.1)
[2023-01-22 07:17] LABS: Hematocrit 49.5 % (42.0-52.0); Hemoglobin 16.3 g/dl (14.0-18.0); Mean Corpuscular HGB Conc 32.9 g/dl (31.0-36.0); Mean Corpuscular Hemoglobin 28.5 pg (27.0-33.0); Mean Corpuscular Volume 86.7 fL (80.0-98.0); Mean Platelet Volume 8.9 fL (9.4-12.4); Platelet Count 442 X10*3/uL (160-400); Red Blood Count 5.71 X10*6/uL (4.60-5.80); Red Cell Distribution Width 13.9 % (11.0-16.0); White Blood Count 11.2 X10*3/uL (4.8-10.8)
[2023-01-22 07:18] LABS: Glucose, Whole Blood 121 mg/dL (60-115)
[2023-01-22 07:29] LABS: Creatinine Clr Calc Pharmacy 119.5; Estimated Glomerular Filt Rate > 60
[2023-01-22] MEDS: Cyclobenzaprine HCl 5 MG TABLET PO (07:54)
[2023-01-22] MEDS: Ascorbic Acid 500 MG TABLET PO (07:54)
[2023-01-22] MEDS: Gabapentin 100 MG CAPSULE 200 MG PO (07:54)
[2023-01-22] MEDS: Famotidine/PF 20 MG/2 ML VIAL IVPUSH (07:55)
--- NOTE | 2023-01-22 10:39 | HO.PM.IMPN ---
Subjective Subjective Date of Service: 01/22/23 Interval History: Seen and evaluated this morning improved abd discomfort, nausea and vomiting For PICC line placement WBCs trending down , blood cultures negative no other overnight events Review of Systems Review of Systems: Yes all other systems are reviewed and are negative Physical Exam Vital Signs: Vital Signs: Last Vital Signs Temp 96.9 F 01/22/23 07:11 Pulse 75 01/22/23 07:11 Resp 18 01/22/23 07:11 BP 107/67 01/22/23 07:11 Pulse Ox 99 01/22/23 07:11 O2 Del Method Room Air 01/22/23 07:11 BMI result Body Mass Index 29.3 Const: Other: Constitutional : Awake, interactive, not in distress Neck : Normal inspection, Supple Cardiovascular : RRR, no JVP, no lower extremity edema Respiratory : good bilateral air entry, no crackles, wheezes or rhonchi Gastrointestinal: soft, lax, Normal bowel sounds, less tenderness with no surgical signs Skin : Warm, Dry, Rt foot with 2 small wounds covered with dressing. Left goot w somall 5th stump open and draining. Vascular: PICC line in place Neurological : Alert & oriented x3, No focal deficit Objective Data Active Medications Al Hydroxide/Mg Hydroxide (Magnesium Hydrox/Alum Hydrox 30 Ml Oral.Susp) 30 ml PO Q6H PRN PRN Reason: Heartburn Last Admin: 01/20/23 19:23 Dose: 30 ml Documented By: ANA ROSA Ascorbic Acid (Ascorbic Acid 500 Mg Tablet) 500 mg PO DAILY [facility] Last Admin: 01/22/23 07:54 Dose: 500 mg Documented By: JOVANNI Calcium Carbonate (Calcium Carbonate 750 Mg Tab.Chew) 750 mg PO Q6H PRN PRN Reason: Heartburn Last Admin: 01/20/23 22:53 Dose: 750 mg Documented By: ANA ROSA Cyclobenzaprine HCl (Cyclobenzaprine Hcl 5 Mg Tablet) 5 mg PO TID [facility] Last Admin: 01/22/23 07:54 Dose: 5 mg Documented By: JOVANNI Diphenhydramine HCl (Diphenhydramine Hcl 50 Mg/Ml Vial) 25 mg IVPUSH Q6H PRN PRN Reason: nasuea Last Admin: 01/21/23 08:45 Dose: 25 mg Documented By: SYDNEY Enoxaparin Sodium (Enoxaparin Sodium 40 Mg/0.4 Ml Syringe) 40 mg SUBCUT Q24H [facility] Last Admin: 01/22/23 07:55 Dose: Not Given Documented By: JOVANNI Non-Admin Reason: Patient Refused Famotidine (Famotidine/Pf 20 Mg/2 Ml Vial) 20 mg IVPUSH BID [facility] Last Admin: 01/22/23 07:55 Dose: 20 mg Documented By: JOVANNI Gabapentin (Gabapentin 100 Mg Capsule) 200 mg PO TID [facility] Last Admin: 01/22/23 07:54 Dose: 200 mg Documented By: JOVANNI Glucose (Glucose Gel 15 Gm Gel..Gram.) 15 gm PO Q15M PRN; Protocol PRN Reason: per Hypoglycemia Standing Ord. Hydromorphone HCl (Hydromorphone Hcl 0.5 Mg/0.5 Ml Syringe) 0.5 mg IVPUSH Q4H PRN; Protocol PRN Reason: moderate pain Last Admin: 01/21/23 20:06 Dose: 0.5 mg Documented By: ANA ROSA Dextrose (D10) 250 mls @ 750 mls/hr IV Q15M PRN; Protocol PRN Reason: per Hypoglycemia Standing Ord. Vancomycin HCl 1,500 mg/ (Sodium Chloride) 500 mls @ 333.333 mls/hr IV Q12H [facility] Last Infusion: 01/22/23 00:02 Dose: 0 mls/hr Documented By: HAO Insulin Human Lispro (Insulin Lispro 100 Unit/Ml 3 Ml Vial) 0 unit SUBCUT QIDACHS [facility]; Protocol Last Admin: 01/22/23 08:27 Dose: Not Given Documented By: DINESH Non-Admin Reason: No Insulin Coverage Ondansetron HCl (Ondansetron Hcl 4 Mg/2 Ml Vial) 4 mg IVPUSH Q6H PRN PRN Reason: Nausea Last Admin: 01/21/23 20:03 Dose: 4 mg Documented By: ANA ROSA Pharmacy Consult (Consult Rx Vancomycin Dosing) 1 each MISCELLANE DAILY PRN PRN Reason: Consult order Sodium Chloride (0.9 % Sodium Chloride Flush 3 Ml Syringe) 3 ml IVFLUSH QSHIFT [facility] Last Admin: 01/22/23 07:56 Dose: 3 ml Documented By: JOVANNI Labs 01/22/23 05:46 01/22/23 05:46 Labs: Laboratory Results - last 24 hr 01/21/23 01/21/23 01/21/23 11:09 16:40 19:49 MCV MCH MCHC RDW Plt Count MPV Absolute Nucleated RBC Nucleated RBC % (auto) PT INR Estim Creat Clear Calc Estimated GFR POC Glucose 158 H 129 H 143 H 01/22/23 01/22/23 01/22/23 05:46 05:46 05:46 MCV 86.7 MCH 28.5 MCHC 32.9 RDW 13.9 Plt Count 442 H MPV 8.9 L Absolute Nucleated RBC 0.000 Nucleated RBC % (auto) 0.0 PT 13.2 H INR 1.1 Estim Creat Clear Calc 119.5 Estimated GFR > 60 POC Glucose 01/22/23 07:14 MCV MCH MCHC RDW Plt Count MPV Absolute Nucleated RBC Nucleated RBC % (auto) PT INR Estim Creat Clear Calc Estimated GFR POC Glucose 121 H Microbiology Microbiology Results: Microbiology 01/19/23 21:29 Blood Culture - Preliminary Blood - Venous No growth after 48 hours. 01/19/23 20:52 Blood Culture - Preliminary Blood - Venous No growth after 48 hours. Assessment and Plan (1) Acute osteomyelitis of left foot: Status: Acute (2) Nausea and vomiting: Status: Acute Plan 48M PMH DM, with OM/DFU s/p multiple amputations, most recently 12/11/22 left 5th toe, anxiety, ptsd, presented with intractable nausea and vomiting severe sepsis due to DM complicated by Left foot diabetic foot ulcer with osteomyelitis and acute lactic acidosis Continue with Vancomycin 01/19 - 03/02/23 follow up cultures surgery did bed side debridment ID input appreciated dilaudid for pain To place PICC for 6 weeks of IV Vancomycin Pending outpatient [facility] and infusion company to plan DC Nausea and vomiting Could be 2/2 Infection, Abx CT negative for acute findings Surgery eval no acute abd. try Famotidine, phenergan advance diet as tolerated DM with peripheral neuropathy insulin monitor pocs gabapentin dvt prophylaxis lovenox full code need for inpatient: patient with singificnat infection at risk for further decompensation, will need IV Abx on discharge for safe discharge plan Time Spent With Patient Time: Total time managing care of this patient today ____ minutes. Quality Stroke Does the patient have a stroke diagnosis?: No VTE Prior VTE?: No VTE Risk Level:: Medical - moderate - high VTE Device Contraindication: Treatment Not Indicated VTE Drug Contraindication: N/A - Med Ordered
--- NOTE | 2023-01-22 10:41 | HO.PICC ---
PICC Line Insertion NPICC Diagnosis: [OSTEOMYELITIS] Indication: [6 WEEKS OF ANTIBX] Pertinent Labs: [REVIEWED] Technique: Following informed consent including risks, benefits and alternatives and using sterile technique including cap and mask, sterile gown, glove and drape, the [RIGHT] arm was prepped and draped in the usual sterile fashion of full barrier technique with CHG. Following completion of [place] Protocol the skin and soft tissues were anesthetized with 1% Lidocaine plain. Using ultrasound guidance, [RIGHT BASILIC] vein access was obtained ON FIRST ATTEMPT BY THIS RN. Over an 0.018 wire through peel-away sheath, a [4FR SINGLE LUMEN PASV] PICC line was positioned. Catheter length is [37CM] internal length, [0CM] external length, for a total trimmed length of [37CM]. The procedure was performed in [RM 272]. Tip verification was performed by Payton Jones with Sherlock 3CG. Tip located in SVC. Ultrasound was used to document vein patency and for needle entry. A formal ultrasound picture and cardiac rhythm strip was recorded. [facility] has released the line for use and it is currently dressed with a StatLock, Tegaderm, and CHG disc. Verification has been performed for blood return and line patency. Arm Circumference: [29CM] Equipment: [PneuronO ] Catheter Type: [4FR SINGLE LUMEN PASV PICC ] Lot #: [[id number]]
--- NOTE | 2023-01-22 10:51 | PC.NURSE ---
Patient agitated this AM, demanding his PICC line and to be discharged before 11AM. Educated patient that this would not happen in this time frame, patient continues to be agitated, unable to calm and redirect.
[2023-01-22 11:36] LABS: Vancomycin Trough 12.9 mcg/mL (10.0-20.0)
--- NOTE | 2023-01-22 11:36 | MHC.CLN ---
NUTRITION INCREASED DIETARY KCALS TO DM 1999 DUE TO INCREASED CALORIE NEEDS WITH INFECTION.
[2023-01-22 11:37] LABS: Glucose, Whole Blood 161 mg/dL (60-115)
--- NOTE | 2023-01-22 11:40 | MHC.CM.PN ---
Male 48 DX Osteo DP home with LT IV ABX. Vanco 1500MG Q12H is ordered. [facility] is the Home infusion Co.. Flush orders and PICC line info have been sent to the infusion Co. [facility] will resume Home services too. Patient will arrange for transport home.
--- NOTE | 2023-01-22 11:42 | HE.PHANOTE ---
Vancomycin Dosing Level therapeutic at 12.8, renal function stable. continue current regmen. Next level 01/23 @ 1000. Kamini GreshamD
[2023-01-22] MEDS: vancomycin HCL 1,500 MG in 0.9 % Sodium Chloride 500 ML 333.33 MG IV (11:54)
[2023-01-22] MEDS: Insulin Lispro 100 UNIT/ML 3 ML VIAL SUBCUT (12:05)
--- NOTE | 2023-01-22 12:07 | PC.NURSE ---
Patient very agitated at lunch, states I don't take fucking insulin at home! Offered not to give MD order for insulin. Patient unable to calm. If I from insulin it's the hospital!. Pt accepted 2 units of insulin. Swearing, This [facility] doesn't give me salt for my lunch, this is bull shit! I'm being treated like a fucking animal! Unable to redirect, patient very agitated and expressing verbally abuse behavior toward staff.
--- NOTE | 2023-01-22 13:47 | PM.DS ---
DS: Providers Provider Date of Service: 01/22/23 Date of admission: 01/19/23 23:51 Primary care physician: STEPHANIE Marti Consults: 01/19/23 23:49 Consult to General Surgery Routine Consulting Provider: [facility] [place] [facility] Reason for consultation: OM, recent amputation Consult to Infectious Diseases Routine Consulting Provider: [facility] [place] Infectious Disease Reason for consultation: OM DS: Diagnosis Discharge Diagnosis (1) Acute osteomyelitis of left foot: Status: Acute (2) Nausea and vomiting: Status: Acute (3) Sepsis: Status: Acute (4) Acidosis, lactic: Status: Acute DS: Summary Hospital Course Hospital Course: Admission note HPI 48M PMH DM, with OM/DFU s/p multiple amputations, most recently 12/11/22 left 5th toe, anxiety, htn, hld, ptsd, presented with intractable nausea and vomitting. patient recently started on levaquin and flagyl for left amp site cellulitis, about 1 week ptp. patient now reporting one day of severe epigastric pain, n/v, inability to tolerate po. in ED found to be severe septic with elevated wbc, tachycardia and lactate of 7, responded well to IVF, antiemetics. abd ct unremarkable, xray foot with concern for OM. Hospital course The patient was admitted for severe sepsis due to DM complicated by Left foot diabetic foot ulcer with osteomyelitis and acute lactic acidosis. treated with IV antibiotics of with Vancomycin 01/19. negative blood cultures. surgery did bed side debridment as he was evaluated by ID who recommended 6 weeks of IV antibiotics. to continue with po dilaudid for pain. Placed PICC for 6 weeks of IV Abx. Patient developed nausea and vomiting likely as a result of Abx and infection. improved as sepsis resolved. CT scan of abd and pelvis did not show any acute findings. started on Famotidine, phenergan. advance diet with good tolerance. Plan: Continue Vancomycin as prescribed, to finish 03/02/23. Famotidine for stomach acidity and pain follow with wound care as outpatient Time Spent with Patient Time attestation: Total time managing care of this patient today ____ minutes. Discharge coordination time: Greater than 30 minutes Quality: Safe Use of Opioids Does Pt have an Active Cancer Diagnosis on the Problem List?: No Quality: Stroke Does the patient have a stroke diagnosis?: No Physical Exam Vital Signs: Vital Signs: Last Vital Signs Temp 96.9 F 04/24/23 07:11 Pulse 75 01/22/23 07:11 Resp 18 01/22/23 07:11 BP 107/67 01/22/23 07:11 Pulse Ox 99 01/22/23 07:11 O2 Del Method Room Air 01/22/23 07:11 BMI result Body Mass Index 29.3 Const: Other: Constitutional : Awake, interactive, not in distress Neck : Normal inspection, Supple Cardiovascular : RRR, no JVP, no lower extremity edema Respiratory : good bilateral air entry, no crackles, wheezes or rhonchi Gastrointestinal: soft, lax, Normal bowel sounds, less tenderness with no surgical signs Skin : Warm, Dry, Rt foot with 2 small wounds covered with dressing. Left foot w small 5th stump open and draining. Vascular: PICC line in place Neurological : Alert & oriented x3, No focal deficit DS: Data Data Completed and Pending Completed studies during hospitalization [Text1]: Procedures Detachment at Left 5th Toe, Complete, Open Approach (12/08/22) Insertion of Infusion Device into Superior Vena Cava, Percutaneous Approach (11/04/21) Labs on day of discharge: Laboratory Results - last 24 hr 01/21/23 01/21/23 01/22/23 16:40 19:49 05:46 WBC RBC Hgb Hct MCV MCH MCHC RDW Plt Count MPV Absolute Nucleated RBC Nucleated RBC % (auto) PT INR Creatinine 0.83 Estim Creat Clear Calc 119.5 Estimated GFR > 60 POC Glucose 129 H 143 H Vancomycin Trough 01/22/23 01/22/23 01/22/23 05:46 05:46 07:14 WBC 11.2 H RBC 5.71 Hgb 16.3 Hct 49.5 MCV 86.7 MCH 28.5 MCHC 32.9 RDW 13.9 Plt Count 442 H MPV 8.9 L Absolute Nucleated RBC 0.000 Nucleated RBC % (auto) 0.0 PT 13.2 H INR 1.1 Creatinine Estim Creat Clear Calc Estimated GFR POC Glucose 121 H Vancomycin Trough 01/22/23 01/22/23 11:09 11:30 WBC RBC Hgb Hct MCV MCH MCHC RDW Plt Count MPV Absolute Nucleated RBC Nucleated RBC % (auto) PT INR Creatinine Estim Creat Clear Calc Estimated GFR POC Glucose 161 H Vancomycin Trough 12.9 Preliminary micro results at discharge 01/19/23 21:29 Blood Culture - Preliminary Blood - Venous No growth after 48 hours. 01/19/23 20:52 Blood Culture - Preliminary Blood - Venous No growth after [address] scan - abdomen: Radiologist's impression: ITS Impressions Abdomen/Pelvis CT 01/19/23 20:50 IMPRESSION: No acute intra-abdominal process seen. Status post cholecystectomy. Small hiatal hernia. Foot X-Ray 01/19/23 22:45 IMPRESSION: Erosive cortical changes of the amputated borders of the fourth and fifth metatarsals and erosive changes in the proximal fifth metatarsal, concerning for osteomyelitis. Discharge Plan Discharge Anticipated Discharge Date/Time: 01/22/23 13:39 Patient Disposition: Home Health Service Discharge Diagnosis: Osteomyelitis Referrals: Suzanne De Paz FNP [Primary Care Provider] - 1 Week Discharge Medications: New famotidine 20 mg tablet 20 mg PO DAILY Qty: 10 0RF Continued cholecalciferol (vitamin D3) 50 mcg (2,000 unit) Capsule 50 mcg PO DAILY metformin 500 mg Tablet 500 mg PO BID gabapentin 100 mg Capsule 200 mg PO TID glipizide 5 mg Tablet 10 mg PO DAILY Trulicity 1.5 mg/0.5 mL Pen Injector 1.5 mg SUBCUT ALMENDAREZ ascorbic acid (vitamin C) 500 mg Tablet 500 mg PO DAILY cyanocobalamin (vitamin B-12) 50 mcg Tablet 50 mcg PO DAILY hydromorphone [Dilaudid] 2 mg tablet 2 mg PO Q8H PRN (Reason: pain (scale score 7-10)) Qty: 20 0RF Rx Instructions: Partial Fill upon patient request. hydroxyzine HCl 25 mg tablet 25 mg PO QID PRN (Reason: Anxiety) Discontinued metronidazole 500 mg tablet 500 mg PO Q8H 10 Days Qty: 30 0RF levofloxacin 500 mg tablet 500 mg PO DAILY 10 Days Qty: 10 0RF Discharge Orders: Discharge Order (Routine); Ordered 01/22/23 Ordered By: Beata Dobson Diet: Advance to usual diet Activity on Discharge: As tolerated Stand Alone Forms: Patient Portal Discharge page Care Plan Goals: Read below Health Concerns: Read below Plan of Treatment: Read below Assessment: You were admitted for treatment of bone infection with IV antibiotics as you were evaluated by surgery and infection disease specialist who recommended 6 weeks of IV antibiotics. Continue Vancomycin as prescribed, to finish 6/2/23. Famotidine for stomach acidity and pain follow with wound care as outpatient Discharge Date/Time: 01/22/23 14:16
--- NOTE | 2023-01-22 14:36 | MHC.CM.PN ---
Patient is discharged to home with [facility] infusion. He was provided infusion management education this am. He is competent to perform infusion Per [facility]. He transported to [place] via [facility]. A coupon was provided to the patient for the shuttle. Al dc info sent to [facility].
== END 2023-01-22 14:16 | disposition home health service (06) | DRG 349 ==
LOC: HO.ED 19:20 → HO.EDOVER 01-20 00:15 → HO.S3 01-20 00:29
PROVIDERS: Internal Medicine; Physician Assistant; Admitting Provider Internal Medicine; Emergency Provider Internal Medicine; PCP Nurse Practitioner Family; Visit Provider Student in an Organized Health Care Education/Training Program
PROC: 02HV33Z Insertion of Infusion Device into Superior Vena Cava, Percutaneous Approach (ICD-10-PCS; principal; 2023-01-22 09:00)
DX: T87.44 Infection of amputation stump, left lower extremity (principal); R65.20 Severe sepsis without septic shock; E87.20 Acidosis, unspecified; E11.42 Type 2 diabetes mellitus with diabetic polyneuropathy; A41.9 Sepsis, unspecified organism; M86.172 Other acute osteomyelitis, left ankle and foot; E11.69 Type 2 diabetes mellitus with other specified complication; E78.5 Hyperlipidemia, unspecified; F41.9 Anxiety disorder, unspecified; F43.10 Post-traumatic stress disorder, unspecified; Y83.5 Amputation of limb(s) as the cause of abnormal reaction of the patient, or of later complication, without mention of misadventure at the time of the procedure; I10 Essential (primary) hypertension; Z88.0 Allergy status to penicillin; Z79.84 Long term (current) use of oral hypoglycemic drugs; Z88.5 Allergy status to narcotic agent; Z79.899 Other long term (current) drug therapy
CPT/HCPCS: 36415; 36573; 73620; 74177; 80048; 80053; 80202; 82565; 82947; 83605; 83690; 83735; 84484; 85025; 85027; 85610; 87040; 93005; 99285; C1751; J0692; J0696; J1170; J1200; J1650; J2060; J2405; J2550; J3370; J3371; Q9967

== ENCOUNTER 2023-01-30 11:00 | Outpatient (REF) | payer OTHER, SELFPAY ==
[2023-01-30 14:38] LABS: Vancomycin Trough 15.5 mcg/mL (10.0-20.0)
== END 2023-01-30 11:01 | disposition home or self-care (01) ==
LOC: HO.HVNA 11:00
PROVIDERS: Visit Provider Internal Medicine
DX: M86.9 Osteomyelitis, unspecified (principal); Z79.899 Other long term (current) drug therapy
CPT/HCPCS: 80202

== ENCOUNTER 2023-02-08 11:32 | Outpatient (REF) | payer OTHER, SELFPAY ==
[2023-02-08 11:34] LABS: MANUAL DIFF FLAG NO
[2023-02-08 11:47] LABS: Basophils Absolute Auto 0.1 X10*3/uL (0.0-0.2); Basophils Percent Auto 0.8 % (0-2); Eosinophils Absolute Auto 0.1 X10*3/uL (0.0-0.4); Eosinophils Percent Auto 1.1 % (0-4); Hematocrit 52.3 % (42.0-52.0); Hemoglobin 17.4 g/dl (14.0-18.0); Imm Gran Abs Auto 0.03 X10*3/uL (0.00-0.03); Imm Gran Pct Auto 0.3 % (0.0-0.4); Lymphocytes Absolute Auto 2.2 X10*3/uL (1.2-4.9); Lymphocytes Percent Auto 24.1 % (20-40); Mean Corpuscular HGB Conc 33.3 g/dl (31.0-36.0); Mean Platelet Volume 9.1 fL (9.4-12.4); Monocytes Absolute Auto 0.7 X10*3/uL (0.1-1.2); Monocytes Percent Auto 7.1 % (2-11); Neutrophils Absolute Auto 6.2 x10*3/uL (2.0-8.3); Neutrophils Percent Auto 66.6 % (45-73); Platelet Count 273 X10*3/uL (160-400); Red Blood Count 6.01 X10*6/uL (4.60-5.80); Red Cell Distribution Width 14.6 % (11.0-16.0); White Blood Count 9.2 X10*3/uL (4.8-10.8)
[2023-02-08 13:09] LABS: Anion Gap 14 (12-20); Blood Urea Nitrogen 9 mg/dL (9-16); Calcium 8.7 mg/dL (8.4-10.2); Carbon Dioxide 23 mmol/L (22-29); Chloride 105 mmol/L (96-108); Estimated Glomerular Filt Rate > 60; Glucose Random 164 mg/dL (60-115); Potassium 4.4 mmol/L (3.3-5.1); Sodium 138 mmol/L (135-145)
[2023-02-08 13:13] LABS: Vancomycin Trough 15.2 mcg/mL (10.0-20.0)
== END 2023-02-08 11:33 | disposition home or self-care (01) ==
LOC: HO.HVNA 11:32
PROVIDERS: Visit Provider Internal Medicine
DX: M86.9 Osteomyelitis, unspecified (principal); Z79.899 Other long term (current) drug therapy
CPT/HCPCS: 36415; 80048; 80202; 85025

== ENCOUNTER 2023-02-15 13:16 | Outpatient (REF) | payer OTHER, SELFPAY ==
[2023-02-15 13:19] LABS: MANUAL DIFF FLAG NO
[2023-02-15 13:27] LABS: Basophils Absolute Auto 0.1 X10*3/uL (0.0-0.2); Basophils Percent Auto 0.6 % (0-2); Eosinophils Absolute Auto 0.3 X10*3/uL (0.0-0.4); Eosinophils Percent Auto 3.3 % (0-4); Hemoglobin 18.6 g/dl (14.0-18.0); Imm Gran Abs Auto 0.06 X10*3/uL (0.00-0.03); Imm Gran Pct Auto 0.6 % (0.0-0.4); Lymphocytes Absolute Auto 2.2 X10*3/uL (1.2-4.9); Lymphocytes Percent Auto 22.5 % (20-40); Mean Corpuscular HGB Conc 33.7 g/dl (31.0-36.0); Mean Corpuscular Hemoglobin 29.3 pg (27.0-33.0); Mean Corpuscular Volume 87.1 fL (80.0-98.0); Mean Platelet Volume 9.1 fL (9.4-12.4); Monocytes Absolute Auto 0.7 X10*3/uL (0.1-1.2); Monocytes Percent Auto 7.6 % (2-11); Neutrophils Absolute Auto 6.2 x10*3/uL (2.0-8.3); Neutrophils Percent Auto 65.4 % (45-73); Platelet Count 327 X10*3/uL (160-400); Red Blood Count 6.34 X10*6/uL (4.60-5.80); Red Cell Distribution Width 15.4 % (11.0-16.0); White Blood Count 9.6 X10*3/uL (4.8-10.8)
[2023-02-15 13:29] LABS: Hematocrit 55.2 % (42.0-52.0)
[2023-02-15 14:20] LABS: Anion Gap 18 (12-20); Blood Urea Nitrogen 10 mg/dL (9-16); Calcium 9.5 mg/dL (8.4-10.2); Carbon Dioxide 25 mmol/L (22-29); Chloride 101 mmol/L (96-108); Estimated Glomerular Filt Rate > 60; Glucose Fasting 100 mg/dL (60-99); Potassium 4.6 mmol/L (3.3-5.1); Sodium 139 mmol/L (135-145)
== END 2023-02-15 13:17 | disposition home or self-care (01) ==
LOC: HO.HVNA 13:16
PROVIDERS: Visit Provider Internal Medicine
DX: M86.9 Osteomyelitis, unspecified (principal); Z79.899 Other long term (current) drug therapy
CPT/HCPCS: 36415; 80048; 80202; 85025

== ENCOUNTER 2023-03-04 01:02 | Emergency (ER) | payer OTHER, SELFPAY ==
--- NOTE | ~2023-03-04 | XR_ITS ---
EXAMINATION: XR SOFT TISSUE NECK CLINICAL INDICATION: Feels like something in throat COMPARISON: None available. TECHNIQUE: 2 views of the soft tissue neck were obtained. FINDINGS: No prevertebral soft tissue swelling. Epiglottis appears unremarkable. No radiopaque foreign body is seen. Mild disc space narrowing and endplate osteophyte formation in the spine at C3-C4. XR/XR soft tissue neck IMPRESSION: No acute findings identified.
[2023-03-04 01:26] VITALS: BP 145/80; PULSE 89; RESP 18; TEMP 37; O2SAT 97; BMI 22.2
[2023-03-04] MEDS: Lidocaine HCl Viscous 2 % 15 ML SOLUTION MUCOUS MEM (01:47)
[2023-03-04 01:53] VITALS: O2SAT 100
--- NOTE | 2023-03-04 02:49 | ED.GENADULT ---
HPI - General Adult General Chief complaint: General Medical Stated complaint: ?Something in throat Time Seen by Provider: 03/04/23 01:17 Source: patient Mode of arrival: EMS Limitations: no limitations History of Present Illness HPI narrative: 48-year-old male presents with a sensation of a foreign body in his throat. Symptoms started approximately 2 days ago. This occurred while he was eating a piece of beef jerky. He was subsequently was able to regurgitate it. The for next 24 hours he felt better. Yesterday he started to have the same symptoms. He has been able to tolerate liquids and solids. He is able to control secretions. He has no shortness of breath. The symptoms he has are moderate to severe in nature. They are worse with the attempt to swallow. Related Data Home Medications Medication Instructions Recorded Confirmed cholecalciferol (vitamin D3) 50 50 mcg PO DAILY 11/04/21 01/19/23 mcg (2,000 unit) capsule hydroxyzine HCl 25 mg tablet 25 mg PO QID PRN Anxiety 09/14/22 01/20/23 gabapentin 100 mg capsule 200 mg PO TID 10/06/22 01/20/23 metformin 500 mg tablet 500 mg PO BID 10/06/22 01/20/23 ascorbic acid (vitamin C) 500 mg 500 mg PO DAILY 11/29/22 01/19/23 tablet dulaglutide 1.5 mg/0.5 mL 1.5 mg subcut ALMENDAREZ 11/29/22 01/20/23 subcutaneous pen injector (Trulicity) glipizide 5 mg tablet 10 mg PO DAILY 11/29/22 01/20/23 cyanocobalamin (vitamin B-12) 50 50 mcg PO DAILY 12/08/22 01/19/23 mcg tablet Previous Rx's Medication Instructions Recorded famotidine 20 mg tablet 20 mg PO DAILY #10 tabs 01/22/23 hydromorphone 2 mg tablet 2 mg PO Q8H PRN pain (scale score 01/22/23 (Dilaudid) 7-10) #20 tabs linezolid 600 mg tablet 600 mg PO BID 14 days #28 tabs 02/19/23 Allergies Allergy/AdvReac Type Severity Reaction Status Date / Time amoxicillin [AMOXICILLIN] Allergy Severe ANAPHYLAXIS Verified 01/19/23 19:10 oxycodone [From Tylox] Allergy Intermediate Itching Verified 01/19/23 19:10 hydrocodone [HYDROCODONE] Allergy Unknown UNKNOWN Verified 01/19/23 19:10 Review of Systems Review of Systems: CONSTITUTIONAL: Denies weight loss, fever and chills. HEENT: Denies changes in vision and hearing. RESPIRATORY: Denies SOB and cough. CV: Denies palpitations no CP. GI: Denies abdominal pain, nausea, vomiting and diarrhea. : Denies dysuria and urinary frequency. MSK: Denies myalgia and joint pain. SKIN: Denies rash and pruritus. NEUROLOGICAL: Denies headache and syncope. PSYCHIATRIC: Denies recent changes in mood. Denies anxiety and depression. All other ROS are negative unless in HPI PMFSH Past Medical History Medical History Acidosis, lactic Anxiety Bacteremia due to Streptococcus Bacterial infection due to Streptococcus, group C Cellulitis Diabetes type 2, controlled 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 GERD (gastroesophageal reflux disease) Marijuana smoker MRSA (methicillin resistant Staphylococcus aureus) Nausea and vomiting Posttraumatic stress disorder Right foot infection Staphylococcus aureus bacteremia Surgical History History of amputation (12/11/22) History of incision and drainage History of laparoscopic cholecystectomy History of partial amputation of toe (10/11/22) Social History Social History Household Members: None Housing: Other Housing Other:: refused to answer Do you presently have visiting nurse or other home services: No Unable to assess alcohol history related to: Refusing to respond Alcohol intake: current Alcohol intake frequency: holidays/special occasions only Alcohol type: beer Patient Tobacco Use Status: Refuse Tobacco use screen Tobacco use type: Cigarette Cigarette Packs Per Day: 1 Cigarettes Per Day: 10 Years Smoked: 36 years Smoked in Last 30 Days: Yes Second Hand Smoke Exposure: No Use of substances other than those prescribed or required for medical reasons: No Substance Use Type: Unknown Any prior treatment program specific to substance use: No Advance Directives: No Advance Directives Information Provided: No service: No Current occupational status: disabled Physical Exam ED Vital Signs: Vital Signs - 24 hr 03/04/23 01:26 03/04/23 01:53 Temperature 98.6 F Pulse Rate 89 Respiratory Rate 18 Blood Pressure 145/80 H Pulse Oximetry 97 100 Oxygen Delivery Method Room Air Room Air BMI result Body Mass Index 22.2 GEN: Well developed, no acute distress, alert, oriented HEENT: Normocephalic, atraumatic, normal external ears, nose appears normal, no oropharyngeal edema or exudates Eyes: Normal to appearance Neck: Supple, no lymphadenopathy Respiratory: Talks in complete sentences, no respiratory distress, clear to auscultation bilaterally Cardiovascular: Regular rate and rhythm, no murmurs rubs or gallops Abdomen: Soft, nontender, nondistended, no guarding, no rebound Back: No CVA tenderness Extremities: No clubbing cyanosis or edema Neurologic: No focal neurologic deficits, cranial nerves 2-12 intact, strength is 5/5 bilaterally Skin: No rash Course Course Course Narrative: 48-year-old male presents with sensation of foreign body within the throat. Examination was unremarkable. Patient was able tolerate liquid and solid intake with observation. Soft tissue x-ray did not reveal any obvious foreign bodies. I suspect patient has an esophageal abrasion was giving him the persistent symptom of a foreign body presents. There is no wheezing or stridor suggest airway obstruction. His trachea is midline and mobile. Patient did have viscous lidocaine but did not significantly improve the symptoms. At this point, patient could be safely discharged. For worsening or recurrent symptoms, patient return to the emergency department. Medications Administered Discontinued Medications Generic Name Dose Route Start Last Admin Trade Name Freq PRN Reason Stop Dose Admin Lidocaine HCl 15 ml 03/04/23 01:37 03/04/23 01:47 Lidocaine Hcl Viscous 2 % 15 Ml Solution MUCOUS MEM 03/04/23 01:38 15 ml ONCE ONE Administration Medical Decision Making Medical Decision Making [facility] Narrative: Patient presents with a sensation of foreign body within his throat. There is no wheezing or stridor. Trachea is midline and mobile. Will order soft tissue x-ray to make sure there was no obvious foreign bodies present. Patient is tolerating liquid intake at this time. Will try viscous lidocaine for symptomatic relief. Differential Diagnosis Differential Diagnoses: The differential diagnosis associated with the presentation includes (Foreign body, esophageal abrasion) Independent Interpretation I performed an independent interpretation of an: Plain X-Ray (No obvious esophageal obstruction or foreign body presents) Radiology Impression Discussion of test interpretation with radiology: I have reviewed the radiologist's reading. Prescription Management I considered prescription management with: Pain Medication Discharge Plan Discharge Clinical Impression: Odynophagia Patient Disposition: Home, Self-Care Instructions: Dysphagia (ED) Prescriptions: No Action linezolid 600 mg tablet 600 mg PO BID 14 Days Qty: 28 0RF cholecalciferol (vitamin D3) 50 mcg (2,000 unit) Capsule 50 mcg PO DAILY metformin 500 mg Tablet 500 mg PO BID gabapentin 100 mg Capsule 200 mg PO TID glipizide 5 mg Tablet 10 mg PO DAILY Trulicity 1.5 mg/0.5 mL Pen Injector 1.5 mg SUBCUT ALMENDAREZ ascorbic acid (vitamin C) 500 mg Tablet 500 mg PO DAILY cyanocobalamin (vitamin B-12) 50 mcg Tablet 50 mcg PO DAILY famotidine 20 mg tablet 20 mg PO DAILY Qty: 10 0RF hydromorphone [Dilaudid] 2 mg tablet 2 mg PO Q8H PRN (Reason: pain (scale score 7-10)) Qty: 20 0RF Rx Instructions: Partial Fill upon patient request. hydroxyzine HCl 25 mg tablet 25 mg PO QID PRN (Reason: Anxiety) Referrals: Physician,Unknown J [Primary Care Provider] - 3 days
== END 2023-03-04 04:00 | disposition home or self-care (01) ==
PROVIDERS: Emergency Provider Emergency Medicine
DX: R13.10 Dysphagia, unspecified (principal); M54.2 Cervicalgia; F17.210 Nicotine dependence, cigarettes, uncomplicated; Z71.6 Tobacco abuse counseling; Z79.899 Other long term (current) drug therapy
CPT/HCPCS: 70360; 99283; 99284

== ENCOUNTER 2023-05-04 17:50 | Outpatient (REF) | payer OTHER, SELFPAY | END 2023-05-04 17:51 | disposition home or self-care (01) | LOC: HO.LNP 17:50 | PROVIDERS: Visit Provider Physician Assistant | DX: S91.301D Unspecified open wound, right foot, subsequent encounter (principal) | CPT/HCPCS: 87070; 87077; 87186; 87205 ==

== ENCOUNTER 2023-10-04 13:36 | Inpatient (IN) | payer OTHER, SELFPAY ==
[2023-10-04 13:51] VITALS: BP 103/60; BP 99/72; PULSE 113; PULSE 120; RESP 20; TEMP 36.8; O2SAT 96; O2SAT 99; BMI 25.8
--- NOTE | 2023-10-04 14:20 | ED.SKABFB ---
HPI - Skin/Abscess/Foreign Bdy General Chief complaint: General Medical Stated complaint: SEC 12,RT FOOT INFECTION Time Seen by Provider: 10/04/23 14:06 Source: patient and old records reviewed Mode of arrival: EMS Limitations: no limitations History of Present Illness HPI narrative: 48 yo male with PMH of HTN, PTSD, DM, anxiety, osteomyelitis hx of MRSA and group C streptococcus bacteremia with his mental illness managed at [facility] and his R foot wound managed by our Wound care Center and podiatry - he is currently on doxycycline and levofloxacin. He was sent in on Section 12 by [facility] for delusions, refusing VNA and wound care ?inflicted trauma to the foot. He denies all of this and states he did this because he had feelings for the VNA RN and didn't feel it was appropriate for her to keep seeing him. He denies any medical complaints. He reports something about reading [employer] cards. MD complaint: lesion Onset (ago): month(s) Tetanus up to date: yes Location: R foot Severity: severe Pain Consistency: constant Relieving factors: rest Exacerbating factors: palpation and movement Context: other (chronic infections s/p debridements and amputations) Treatments prior to arrival: bandages and antibiotic Related Data Home Medications Medication Instructions Recorded Confirmed cholecalciferol (vitamin D3) 50 50 mcg PO DAILY 11/04/21 10/04/23 mcg (2,000 unit) capsule gabapentin 100 mg capsule 200 mg PO TID 10/06/22 10/04/23 metformin 500 mg tablet 500 mg PO BID 10/06/22 10/04/23 ascorbic acid (vitamin C) 500 mg 500 mg PO DAILY 11/29/22 10/04/23 tablet dulaglutide 1.5 mg/0.5 mL 1.5 mg subcut FR 11/29/22 10/04/23 subcutaneous pen injector ([facility]) glipizide 5 mg tablet 10 mg PO DAILY 11/29/22 10/04/23 doxycycline monohydrate 100 mg 100 mg PO BID 10/04/23 10/04/23 capsule Allergies Allergy/AdvReac Type Severity Reaction Status Date / Time amoxicillin [AMOXICILLIN] Allergy Severe ANAPHYLAXIS Verified 01/19/23 19:10 oxycodone [From Tylox] Allergy Intermediate Itching Verified 01/19/23 19:10 hydrocodone [HYDROCODONE] Allergy Unknown UNKNOWN Verified 01/19/23 19:10 Review of Systems Review of Systems: Constitutional : No Fever, No Chills ENT/Mouth : No sore throat, No Rhinorrhea Eyes: No Eye Pain, No Swelling, No Redness Cardiovascular : No Chest Pain, No SOB Respiratory : No Cough, No Sputum Gastrointestinal : No Nausea, No Vomiting, No Diarrhea, No abdominal Pain Genitourinary : No Dysuria, No Hematuria Musculoskeletal : No joint pain, No Myalgias, No Joint Swelling Skin : pos Skin Lesions, positive skin rash Neuro : No Weakness, No Numbness, No Headache Psych : No Anxiety, No Depression, no SI/HI Heme/Lymph: No Bruising, No Bleeding,No Lymphadenopathy Endocrine : No Polyuria, No Polydipsia All other systems reviewed and are negative PMFSH Past Medical History Attestation statement: The following information was validated with the patient. Source: old records reviewed Onset Date is defined in the Problem List Problems that require an onset date and time if occurred within 24 hrs of arrival to the ED Aortic Dissection and Rupture; Neurologic impairment; Cardiopulmonary Arrest; Endotracheal Intubation; Insertion or Replacement of Mechanical Circulatory Assist Device Medical History Nausea and vomiting Marijuana smoker MRSA (methicillin resistant Staphylococcus aureus) GERD (gastroesophageal reflux disease) Bacteremia due to Streptococcus Posttraumatic stress disorder Staphylococcus aureus bacteremia 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 Bacterial infection due to Streptococcus, group C Acidosis, lactic Cellulitis Right foot infection Anxiety Diabetes type 2, controlled Surgical History History of amputation (12/11/22) History of partial amputation of toe (10/11/22) History of incision and drainage History of laparoscopic cholecystectomy Social History Social History Household Members: None Housing: Apartment Housing Other:: refused to answer Do you presently have visiting nurse or other home services: Yes Unable to assess alcohol history related to: Refusing to respond Alcohol intake: current Alcohol intake frequency: holidays/special occasions only Alcohol type: beer Patient Tobacco Use Status: Refuse Tobacco use screen Tobacco use type: Cigarette Cigarette Packs Per Day: 1 Cigarettes Per Day: 10 Years Smoked: 36 years Second Hand Smoke Exposure: No Substance Use Type: Marijuana service: No Current occupational status: disabled Physical Exam Vital Signs: Vital Signs: Last Vital Signs Temp 97.9 F 10/04/23 19:33 Pulse 83 10/04/23 19:33 Resp 18 10/04/23 19:33 BP 108/58 L 10/04/23 19:33 Pulse Ox 99 10/04/23 19:33 O2 Del Method Room Air 10/04/23 15:58 BMI result Body Mass Index 25.8 Appearance: Alert. Oriented X3. No acute distress. anxious, hyperverbal Eyes: Pupils equal, round and reactive to light. ENT: Pharynx normal. Neck: Normal inspection. Neck supple. CVS: Normal heart rate and rhythm. Pulses normal. Respiratory: No respiratory distress. Breath sounds normal. Abdomen: Soft and nontender. Skin: Skin warm and dry. Normal skin color. Extremities: No lower extremity edema. R foot there is redness, foul odor discharge, wound is dehisced, redness streaking onto dorsum of foot and ankle Neuro: Oriented X 3. No motor deficit. No sensory deficit. Medications Administered Generic Name Dose Route Start Last Admin Trade Name Freq PRN Reason Stop Dose Admin Enoxaparin Sodium 40 mg 10/04/23 18:00 10/04/23 18:36 Enoxaparin Sodium 40 Mg/0.4 Ml Syringe SUBCUT 40 mg Q24H IRISH Administration Gabapentin 200 mg 10/04/23 21:00 10/04/23 20:45 Gabapentin 100 Mg Capsule PO 200 mg TID IRISH Administration Insulin Human Lispro 0 unit 10/04/23 21:00 10/04/23 20:33 Insulin Lispro 100 Unit/Ml 3 Ml Vial SUBCUT Not Given QIDACHS [facility] Protocol Discontinued Medications Generic Name Dose Route Start Last Admin Trade Name Freq PRN Reason Stop Dose Admin Sodium Chloride 1,000 mls @ 999 mls/hr 10/04/23 14:30 10/04/23 15:57 Ns IVCONT 10/04/23 15:30 Infused .Q1H1M IRISH Infusion Vancomycin HCl 2,000 mg in 520 mls @ 250 mls/hr 10/04/23 14:18 10/04/23 19:06 Vancomycin/Ns IV 10/04/23 16:22 Infused ONCE ONE Infusion Cefepime HCl 1 gm/ Sodium 50 mls @ 100 mls/hr 10/04/23 14:45 10/04/23 15:57 Chloride IV 10/04/23 15:14 Infused ONCE ONE Infusion Medical Decision Making Medical Decision Making [facility] Narrative: 48 yo male with PMH of HTN, PTSD, DM, anxiety, osteomyelitis hx of MRSA and group C streptococcus bacteremia with his mental illness managed at [facility] and his R foot wound managed by our Wound care Center and podiatry here on S12 after his mental health team is worried about him refusing VNA, not taking his antibiotics, delusions. He denies all of this. His foot looks red, hot and the wound is not healing well. Will obtain labs, xray, cultures given hx start on cefepime and vancomycin given prior bacteremia and MRSA. Likely medical admit with psych input. Differential Diagnosis Differential Diagnoses: The differential diagnosis associated with the presentation includes osteo, cellulitis, delusions Admission/Observation Consideration of admission/observation: Escalation of care including admission/observation considered plan to admit for IV antibiotics Consult Healthcare Provider Management of the patient was discussed with: Hospitalist (admit) Lab Data [facility] Lab Attestation statement: I reviewed the patient's lab results. 10/04/23 14:35 10/04/23 14:35 Labs: Lab Results 10/04/23 10/04/23 10/04/23 Range/Units 14:35 14:52 17:13 WBC 13.4 H (4.8-10.8) X10*3/uL RBC 5.98 H (4.60-5.80) X10*6/uL Hgb 16.3 (14.0-18.0) g/dl Hct 49.5 (42.0-52.0) % MCV 82.8 (80.0-98.0) fL MCH 27.3 (27.0-33.0) pg MCHC 32.9 (31.0-36.0) g/dl RDW 14.7 (11.0-16.0) % Plt Count 442 H D (160-400) X10*3/uL MPV 8.5 L (9.4-12.4) fL Immature Gran % (Auto) 0.6 H (0.0-0.4) % Neut % (Auto) 85.9 H (45-73) % Lymph % (Auto) 7.2 L (20-40) % [place] % (Auto) 5.9 (2-11) % Eos % (Auto) 0.1 (0-4) % Baso % (Auto) 0.3 (0-2) % Lymph # (Auto) 1.0 L (1.2-4.9) X10*3/uL [place] # (Auto) 0.8 (0.1-1.2) X10*3/uL Eos # (Auto) 0.0 (0.0-0.4) X10*3/uL Baso # (Auto) 0.0 (0.0-0.2) X10*3/uL Abs Immat Gran (auto) 0.08 H (0.00-0.03) X10*3/uL Absolute Neuts (auto) 11.5 H (2.0-8.3) x10*3/uL Absolute Nucleated RBC 0.000 (0.0-0.012) X10*3/uL Nucleated RBC % (auto) 0.0 (0.0-0.2) /100WBC ESR 59 H (0-15) MM/HR Sodium 137 (135-145) mmol/L Potassium 4.1 (3.3-5.1) mmol/L Chloride 101 (96-108) mmol/L Carbon Dioxide 23 (22-29) mmol/L Anion Gap 17 (12-20) BUN 10 (9-16) mg/dL Creatinine 0.89 (0.5-1.4) mg/dL Estim Creat Clear Calc 100.4 Estimated GFR > 60 Random Glucose 163 H (60-115) mg/dL Lactic Acid 1.8 (0.5-2.0) mmol/L Calcium 10.0 (8.4-10.2) mg/dL Magnesium 1.7 (1.6-2.6) mg/dL Total Bilirubin 0.6 (0.0-1.0) mg/dL Direct Bilirubin 0.3 (0.0-0.5) mg/dL AST 32 (5-37) U/L ALT 51 H (0-40) U/L Alkaline Phosphatase 63 (39-117) U/L C-Reactive Protein 16.96 H (< or = 0.50) mg/dL Total Protein 8.0 (6.5-8.0) g/dL Albumin 3.8 (3.5-5.0) g/dL Procalcitonin 0.04 ng/mL Urine Opiates Screen Not Detected (Not Detect) Urine Fentanyl Screen Not Detected (Not Detect) Ur Barbiturates Screen Not Detected (Not Detect) Ur Phencyclidine Scrn Not Detected (Not Detect) Ur Amphetamines Screen Not Detected (Not Detect) U Benzodiazepines Scrn Not Detected (Not Detect) Urine Cocaine Screen Not Detected (Not Detect) U Marijuana (THC) Screen POSITIVE H (Not Detect) Ethyl Alcohol < 10 mg/dL COVID-19 ([facility]) Negative (Negative) COVID-19 Clin Com See Note Independent Interpretation I performed an independent interpretation of an: Plain X-Ray Radiology Impression Discussion of test interpretation with radiology: I have reviewed the radiologist's reading. External Record Review External record reviewed: Inpatient record and Prior outpatient labs Critical Care Time Critical Care Time Critical Care Time: Yes Total Critical Care Time: 40 Attestation: sepsis protocol, review of records, admission I attest to this time spent taking care of the patient Discharge Plan Discharge Clinical Impression: Anxiety Open wnd foot-complicated Qualifiers: Encounter type: initial encounter Laterality: right Qualified Code(s): S91.301A - Unspecified open wound, right foot, initial encounter Elevated WBC count Qualifiers: Leukocytosis type: unspecified Qualified Code(s): D72.829 - Elevated white blood cell count, unspecified Patient Disposition: Admitted As Inpatient Interventions: Admission Worksheet (ED) Last Done: 10/04/23 19:13 Discharge Date/Time: 10/04/23 19:32
--- NOTE | 2023-10-04 15:11 | MHC.CARE ---
Per Yue Arrieta from [facility]- pt reports delusions that tarot cards are telling him that he and his VNA are supposed to be in a romantic relationship. Pt will be medically admitted and once pt is cleared Care Team should be consulted.
[2023-10-04 15:40] VITALS: BP 125/75; PULSE 90; RESP 16; TEMP 36.9; O2SAT 98
[2023-10-04 15:58] VITALS: BP 99/64; PULSE 93; O2SAT 96
--- NOTE | 2023-10-04 16:08 | PM.IMHP ---
History of Present Illness Date of Service: 10/04/23 Attending physician on admission: Florence Castanon Chief Complaint: Worsening right foot infection Pt is a 48-year-old male with a PMH significant for?HTN, [id number] diabetes type 2, GERD, hx of osteomyelitis with multiple toe amputations, hx of MRSA and group C Streptococcus bacteremia, PTSD, and anxiety/depression treated by Fito Roque who presents to the ED on a section 12 for evaluation of infected right foot. Patient with a chronic right foot wound managed by our Wound Care Center and Podiatry, currently on doxycycline and levofloxacin. Fito Roque sent to the ED on a section 12 for delusions and refusing VNA and Wound Care. According to the section 12, he has been refusing VNA care due to the [employer] Cards telling him the VNA nurse has feelings for him and that he can not have a relationship with her. Pt himself strenuously denies these allegations and says he has been compliant with all medications and treatments, including planning on seeing Wound Care tomorrow for an appointment. However, pt concedes he has not been using VNA recently because he does not like them and they don't do a good job . At time of interview pt is agitated, hostile, combative, and verbally abusive to his previous providers. Denies any systemic symptoms: no fever, chills, N/V. Has no acute medical complaints other than some pain in right foot with standing. Also have chronic wound on left foot but refused to allow it to be examined. In the ED pt was tachycardic up to 113, otherwise vitals WNL. Labs were significant for leukocytosis of 13.4, ESR 59, CRP 16.96, ALT 51, and procalcitonin mildly elevated at 0.04. Stable H&H. Electrolytes WNL. Lactic acid WNL at 1.8. Ethyl alcohol undetectable. X-ray of right foot showed likely destructive changes of osteomyelitis. Pt was treated with IVF, vancomycin, and cefepime. Pt will be admitted to the hospital for treatment and further evaluation of worsening right foot infection concerning for osteomyelitis. Review of Systems Review of Systems: Worsening right foot infection Patient denies any acute medical complaints or issues at this [facility] Medical History Nausea and vomiting Marijuana smoker MRSA (methicillin resistant Staphylococcus aureus) GERD (gastroesophageal reflux disease) Bacteremia due to Streptococcus Posttraumatic stress disorder Staphylococcus aureus bacteremia 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 Bacterial infection due to Streptococcus, group C Acidosis, lactic Cellulitis Right foot infection Anxiety Diabetes type 2, controlled Surgical History History of amputation (12/11/22) History of partial amputation of toe (10/11/22) History of incision and drainage History of laparoscopic cholecystectomy Social History Household Members: None Housing: Other Housing Other:: refused to answer Do you presently have visiting nurse or other home services: No Unable to assess alcohol history related to: Refusing to respond Alcohol intake: current Alcohol intake frequency: holidays/special occasions only Alcohol type: beer Patient Tobacco Use Status: Refuse Tobacco use screen Tobacco use type: Cigarette Cigarette Packs Per Day: 1 Cigarettes Per Day: 10 Years Smoked: 36 years Smoked in Last 30 Days: Yes Second Hand Smoke Exposure: No Use of substances other than those prescribed or required for medical reasons: Yes Substance Use Type: Marijuana Advance Directives: No Advance Directives Information Provided: No service: No Current occupational status: disabled Meds Allergies Allergy/AdvReac Type Severity Reaction Status Date / Time amoxicillin [AMOXICILLIN] Allergy Severe ANAPHYLAXIS Verified 01/19/23 19:10 oxycodone [From Tylox] Allergy Intermediate Itching Verified 01/19/23 19:10 hydrocodone [HYDROCODONE] Allergy Unknown UNKNOWN Verified 01/19/23 19:10 Active Medications: Current Medications Vancomycin HCl (Vancomycin/Ns) 2,000 mg in 520 mls @ 250 mls/hr IV ONCE ONE Stop: 10/04/23 16:22 Last Admin: 10/04/23 15:56 Dose: 250 mls/hr Home Medications Medication Instructions Recorded Confirmed Last Taken Type cholecalciferol (vitamin D3) 50 50 mcg PO DAILY 11/04/21 10/04/23 10/03/23 History mcg (2,000 unit) capsule gabapentin 100 mg capsule 200 mg PO TID 10/06/22 10/04/23 01/19/23 History metformin 500 mg tablet 500 mg PO BID 10/06/22 10/04/23 10/03/23 History ascorbic acid (vitamin C) 500 mg 500 mg PO DAILY 11/29/22 10/04/23 10/03/23 History tablet dulaglutide 1.5 mg/0.5 mL 1.5 mg subcut FR 11/29/22 10/04/23 10/03/23 History subcutaneous pen injector ([facility]) glipizide 5 mg tablet 10 mg PO DAILY 11/29/22 10/04/23 10/03/23 History doxycycline monohydrate 100 mg 100 mg PO BID 10/04/23 10/04/23 10/04/23 History capsule Physical Exam Vital Signs and Narrative: Vital Signs: Last Vital Signs Temp 98.5 F 10/04/23 15:40 Pulse 93 10/04/23 15:58 Resp 16 10/04/23 15:40 BP 99/64 10/04/23 15:58 Pulse Ox 96 10/04/23 15:58 O2 Del Method Room Air 10/04/23 15:58 BMI result Body Mass Index 25.8 General: AOx3, agitated, combative, resistant, no acute distress; exam limited d/t pt's hostility Resp: No respiratory distress. Capable of speaking in complete sentences GI: no distention Skin: Warm, dry Neuro: Cranial nerves II-XII grossly intact bilaterally. Motor grossly intact bilaterally Extremities: Right foot with erythema, warmth, purulent and foul-smelling discharge. As pictured below Psych: Paranoid and combative Results Labs 10/04/23 14:35 10/04/23 14:35 Labs: Laboratory Results - last 24 hr 10/04/23 10/04/23 14:35 14:52 MCV 82.8 MCH 27.3 MCHC 32.9 RDW 14.7 Plt Count 442 H D MPV 8.5 L Immature Gran % (Auto) 0.6 H Neut % (Auto) 85.9 H Lymph % (Auto) 7.2 L [place] % (Auto) 5.9 Eos % (Auto) 0.1 Baso % (Auto) 0.3 Lymph # (Auto) 1.0 L [place] # (Auto) 0.8 Eos # (Auto) 0.0 Baso # (Auto) 0.0 Abs Immat Gran (auto) 0.08 H Absolute Neuts (auto) 11.5 H Absolute Nucleated RBC 0.000 Nucleated RBC % (auto) 0.0 ESR 59 H Anion Gap 17 Estim Creat Clear Calc 100.4 Estimated GFR > 60 Random Glucose 163 H Lactic Acid 1.8 Calcium 10.0 Magnesium 1.7 Total Bilirubin 0.6 Direct Bilirubin 0.3 AST 32 ALT 51 H Alkaline Phosphatase 63 C-Reactive Protein 16.96 H Total Protein 8.0 Albumin 3.8 Procalcitonin 0.04 Ethyl Alcohol < 10 COVID-19 ([facility]) Negative COVID-19 Clin Com See Note Assessment and Plan (1) Open wnd foot-complicated: Qualifiers: Encounter type: initial encounter Laterality: right Qualified Code(s): S91.301A - Unspecified open wound, right foot, initial encounter Status: Acute Plan Pt is a 48-year-old male with a PMH significant for?HTN, [id number] diabetes type 2, GERD, hx of osteomyelitis with multiple toe amputations, hx of MRSA and group C Streptococcus bacteremia, PTSD, and anxiety/depression treated by [facility] who presents to the ED on a section 12 for evaluation of infected right foot. Pt will be admitted to the hospital for treatment and further evaluation of worsening right foot infection concerning for osteomyelitis. Chronic right foot wound s/p first digit amputation concerning for osteomyelitis Erythema, purulent and foul-smelling discharge, elevated ESR and CRP, x-ray evidence suggestive of osteomyelitis Likely secondary to noncompliance with VNA services and wound care Patient meets sepsis criteria: Tachycardia, leukocytosis; lactic acid WNL at 1.8 Patient given IVF and started on broad-spectrum antibiotics in the ED Will treat with vancomycin and cefepime General surgery consult Infectious Disease consult Follow cultures Mood disorder Pt on a Section 12 from [facility] for delusions and refusing VNA services and wound care Alcohol negative, tox screen negative except for marijuana Psychiatry consult Fqw-rttudgh-kqbdwehqz diabetes type 2 Hold metformin, Trulicity Continue glipizide Will place on sliding scale insulin, diabetic diet Peripheral neuropathy Continue gabapentin Full Code Attending:?Dr. Castanon DVT Prophylaxis: Lovenox Pt will require a hospitalization of at least two nights for treatment of?worsening chronic right foot wound concerning for osteomyelitis. Patient will require treatment with IV antibiotics, specialist consultation, and close monitoring of medical adherence due to his section 12. Quality Stroke Does the patient have a stroke diagnosis?: No VTE Prior VTE?: No VTE Risk Level:: Medical - moderate - high VTE Device Contraindication: Treatment Not Indicated VTE Drug Contraindication: N/A - Med Ordered
--- NOTE | 2023-10-04 16:18 | PHA.MEDREC ---
Pharmacy Consult ? Medication Reconciliation Pharmacy has completed the medication reconciliation. Patient reported medications. Reports he finished the levaquin. Anisa Edwards, KaminiD
[2023-10-04 16:32] VITALS: BP 132/84
[2023-10-04 16:43] VITALS: BP 117/61
--- NOTE | 2023-10-04 17:37 | PHA.PROG ---
Admission Date/Time: October 04, 2023 17:15 Indication: Bone & joint Weight in k.379 kg Adjusted body weight in K.1 kg [place] body weight in K.7 kg Obesity Dosing Indication % IBW: 112% Serum Creatinine - Last 168 Hours 10/04/23 14:35 Creatinine 0.89 Estimated CrCl and GFR - Last 168 Hours 10/04/23 14:35 Estim Creat Clear Calc 100.4 Estimated GFR > 60 Vancomycin Loading Dose: 2000 mg Current Vancomycin Dosing Regimen: 750 mg Q8H Date and Time for next Vancomycin Level to be drawn: 10/05 @ 1400 Pharmacist Comments on Vancomycin Plan: patient received an adequate load dose in the er 10/04 @ 1557 maintenenace dose vancomycin 750 mg Q8H is scheduled to start 10/05 @ 0000. Predicted AUC 524 with a trough of 17.7 level with be drawn prior to 4th dose pharmacy will monitor renal function daily Anisa Edwards PharmD Vancomycin dosing will take advantage of Nov[employer] as a clinical decision support tool that uses Bayesian modeling to calculate individual patient's pharmacokinetic parameters and forecast the patient's drug concentration time course with the target goal AUC 24 range of 400 - 600 mg/L/hr.
--- NOTE | 2023-10-04 18:45 | PC.NURSE ---
Initial contact with pt. pt does not want to wear a hospital gown. IV pump beeping as pt's arm is bent. when advised to straighten arm pt states it's not that, I'm not having you people tell me what to do you can just shut the hell up.
--- NOTE | 2023-10-04 19:03 | MHC.EDTECH ---
Gave patient a urinal.
[2023-10-04 19:33] VITALS: BP 108/58; PULSE 83; RESP 18; TEMP 36.6; O2SAT 99
--- NOTE | 2023-10-04 21:02 | PC.NURSE ---
Pt refusing part of admission assessment and intake. Per transport, pt took paperwork from pt's file. pt stating they are copies and he is going to keep them. Pt refusing to return papers to staff.
[2023-10-05 04:00] VITALS: BP 112/60; PULSE 80; RESP 16; TEMP 36.7; O2SAT 98
[2023-10-05 07:13] VITALS: BP 104/55; PULSE 80; RESP 20; TEMP 36.9; O2SAT 97
--- NOTE | 2023-10-05 07:24 | PC.NURSE ---
Patient admitted with right foot wound, see photos and ed reports for full details. pt underwent a great to amputation at a different facility sometime in early August and was receiving wound care and services thru [facility] and [facility]. see reports for full details. pt angry at [id number] as admitting RN had documented as HFR and very upset to find bed alarm activated. discussion in room with pt, nursing casino cage supervisor and automatic nailing machine feeder; determined gait steady, would use urinal most of the time to void, and would alert staff to needs. reassurance, education, and plan of care explained frequently to patient. pt very angry over the reason he is here (section 12), read details. Pt remained talkative, sharing past stories, drinking tea,... but overall cooperative, at times would voice anger and different aspects of his health care making him upset but other than time consuming, no severe agitation or combativeness. Full morning report to day RN new #22 angio placed to right forearm and iv abx as ordered. iv site to left arm was bothering him, no s/sx injury. monitored closely through out shift.
--- NOTE | 2023-10-05 08:24 | MHC.IC ---
PT HAS PERSISTENT MRSA INFECTION TO WOUND - PRESUMABLY STILL INFECTED
--- NOTE | 2023-10-05 11:17 | PM.CNGS ---
History of Present Illness Consult details Consult date: 10/05/23 Requesting physician: Florence Castanon Narrative: 48-year-old male patient well known to service with history of peripheral vascular disease, diabetes with previous left toe amputations now returning following a right foot great toe amputation last month at [facility]. He was discharged with 2 weeks oral antibiotics but apparently the regional plan was for 6 weeks of IV antibiotics. This apparently was never prescribed in the patient now presents with necrotic changes to the right foot. He also notes red streaking in the left foot which is new. [facility] is [facility] and [facility]. Review of Systems Review of Systems: Yes all other systems are reviewed and are negative PMFSH Past Medical History Medical History Nausea and vomiting Marijuana smoker MRSA (methicillin resistant Staphylococcus aureus) GERD (gastroesophageal reflux disease) Bacteremia due to Streptococcus Posttraumatic stress disorder Staphylococcus aureus bacteremia 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 Bacterial infection due to Streptococcus, group C Acidosis, lactic Cellulitis Right foot infection Anxiety Diabetes type 2, controlled Surgical History Surgical History History of amputation (12/11/22) History of partial amputation of toe (10/11/22) History of incision and drainage History of laparoscopic cholecystectomy Social History Social History Household Members: None Housing: Apartment Housing Other:: refused to answer Do you presently have visiting nurse or other home services: Yes Unable to assess alcohol history related to: Refusing to respond Alcohol intake: current Alcohol intake frequency: holidays/special occasions only Alcohol type: beer Comment: refuses alarms, camera. Education provided about safety Patient Tobacco Use Status: Refuse Tobacco use screen Tobacco use type: Cigarette Cigarette Packs Per Day: 1 Cigarettes Per Day: 10 Years Smoked: 36 years Second Hand Smoke Exposure: No Substance Use Type: Marijuana service: No Current occupational status: disabled Meds Allergies Allergy/AdvReac Type Severity Reaction Status Date / Time amoxicillin [AMOXICILLIN] Allergy Severe ANAPHYLAXIS Verified 01/19/23 19:10 oxycodone [From Tylox] Allergy Intermediate Itching Verified 01/19/23 19:10 hydrocodone [HYDROCODONE] Allergy Unknown UNKNOWN Verified 01/19/23 19:10 Active Medications: Current Medications Acetaminophen (Acetaminophen 325 Mg Tablet) 650 mg PO Q6H PRN PRN Reason: Pain, Mild (Pain Scale 1-3) Last Admin: 10/05/23 00:56 Dose: 650 mg Ascorbic Acid (Ascorbic Acid 500 Mg Tablet) 500 mg PO DAILY [facility] Last Admin: 10/05/23 08:45 Dose: 500 mg Benzonatate (Benzonatate 100 Mg Capsule) 100 mg PO TID PRN PRN Reason: Cough Dextrose (Dextrose 50 % 25 Gm/50 Ml Syringe) 25 gm IVPUSH Q15M PRN; Protocol PRN Reason: per Hypoglycemia Standing Ord. Docusate Sodium (Docusate Sodium 100 Mg Capsule) 100 mg PO DAILY PRN PRN Reason: Constipation Enoxaparin Sodium (Enoxaparin Sodium 40 Mg/0.4 Ml Syringe) 40 mg SUBCUT Q24H [facility] Last Admin: 10/04/23 18:36 Dose: 40 mg Gabapentin (Gabapentin 100 Mg Capsule) 200 mg PO TID [facility] Last Admin: 10/05/23 08:45 Dose: 200 mg Glipizide (Glipizide 10 Mg Tablet) 10 mg PO DAILY [facility] Last Admin: 10/05/23 08:44 Dose: 10 mg Glucose (Glucose Gel 15 Gm Gel..Gram.) 15 gm PO Q15M PRN; Protocol PRN Reason: per Hypoglycemia Standing Ord. Cefepime HCl 2 gm/ Sodium (Chloride) 50 mls @ 100 mls/hr IV Q12H [facility] Last Infusion: 10/05/23 04:20 Dose: Infused Vancomycin HCl 750 mg/ Sodium (Chloride) 265 mls @ 265 mls/hr IV Q8H [facility] Last Infusion: 10/05/23 09:45 Dose: Infused Insulin Human Lispro (Insulin Lispro 100 Unit/Ml 3 Ml Vial) 0 unit SUBCUT QIDACHS [facility]; Protocol Last Admin: 10/05/23 08:43 Dose: 2 unit Melatonin (Melatonin 3 Mg Tablet) 6 mg PO BEDTIME PRN PRN Reason: Insomnia Ondansetron HCl (Ondansetron Hcl 4 Mg/2 Ml Vial) 4 mg IVPUSH Q8H PRN PRN Reason: Nausea and Vomiting Pharmacy Consult (Consult Rx Vancomycin Dosing) 1 each MISCELLANE DAILY PRN PRN Reason: Consult order Sodium Chloride (0.9 % Sodium Chloride Flush 3 Ml Syringe) 3 ml IVFLUSH QSHIFT [facility] Last Admin: 10/05/23 08:44 Dose: 3 ml Vitamin D (Cholecalciferol (Vitamin D3) 25 Mcg Tablet) 50 mcg PO DAILY [facility] Last Admin: 10/05/23 08:45 Dose: 50 mcg Home Medications Medication Instructions Recorded Confirmed Last Taken Type cholecalciferol (vitamin D3) 50 50 mcg PO DAILY 11/04/21 10/04/23 10/03/23 History mcg (2,000 unit) capsule gabapentin 100 mg capsule 200 mg PO TID 10/06/22 10/04/23 01/19/23 History metformin 500 mg tablet 500 mg PO BID 10/06/22 10/04/23 10/03/23 History ascorbic acid (vitamin C) 500 mg 500 mg PO DAILY 11/29/22 10/04/23 10/03/23 History tablet dulaglutide 1.5 mg/0.5 mL 1.5 mg subcut FR 11/29/22 10/04/23 10/03/23 History subcutaneous pen injector (Trulicity) glipizide 5 mg tablet 10 mg PO DAILY 11/29/22 10/04/23 10/03/23 History doxycycline monohydrate 100 mg 100 mg PO BID 10/04/23 10/04/23 10/04/23 History capsule Physical Exam Vital Signs: Vital Signs: Last Vital Signs Temp 98.5 F 10/05/23 07:13 Pulse 80 10/05/23 07:13 Resp 20 10/05/23 07:13 BP 104/55 L 10/05/23 07:13 Pulse Ox 97 10/05/23 07:13 O2 Del Method Room Air 10/05/23 07:13 BMI result Body Mass Index 25.8 Const: General: no acute distress Nutritional Appearance: well nourished Orientation/consciousness: patient oriented x3 Resp: Effort & Inspection: normal respiratory effort, no audible wheezes, no cough and no respiratory distress GI: Inspection: Yes normal to inspection Skin: General skin exam: no rashes or lesions noted Neuro: General: patient oriented x3 Extrem: Other: Right foot with intact sutures but necrotic changes to wound base (see photos) Small area of streaking in the left foot. Dressings changed and silver alginate applied. Results Labs 10/04/23 14:35 10/05/23 05:48 Labs: Abnormal lab results 10/04/23 10/04/23 10/04/23 Range/Units 14:35 17:13 20:21 WBC 13.4 H (4.8-10.8) X10*3/uL RBC 5.98 H (4.60-5.80) X10*6/uL Plt Count 442 H D (160-400) X10*3/uL MPV 8.5 L (9.4-12.4) fL Immature Gran % (Auto) 0.6 H (0.0-0.4) % Neut % (Auto) 85.9 H (45-73) % Lymph % (Auto) 7.2 L (20-40) % Lymph # (Auto) 1.0 L (1.2-4.9) X10*3/uL Abs Immat Gran (auto) 0.08 H (0.00-0.03) X10*3/uL Absolute Neuts (auto) 11.5 H (2.0-8.3) x10*3/uL ESR 59 H (0-15) MM/HR POC Glucose 149 H (60-115) mg/dL Random Glucose 163 H (60-115) mg/dL ALT 51 H (0-40) U/L C-Reactive Protein 16.96 H (< or = 0.50) mg/dL U Marijuana (THC) Screen POSITIVE H (Not Detect) 10/05/23 Range/Units 07:20 WBC (4.8-10.8) X10*3/uL RBC (4.60-5.80) X10*6/uL Plt Count (160-400) X10*3/uL MPV (9.4-12.4) fL Immature Gran % (Auto) (0.0-0.4) % Neut % (Auto) (45-73) % Lymph % (Auto) (20-40) % Lymph # (Auto) (1.2-4.9) X10*3/uL Abs Immat Gran (auto) (0.00-0.03) X10*3/uL Absolute Neuts (auto) (2.0-8.3) x10*3/uL ESR (0-15) MM/HR POC Glucose 163 H (60-115) mg/dL Random Glucose (60-115) mg/dL ALT (0-40) U/L C-Reactive Protein (< or = 0.50) mg/dL U Marijuana (THC) Screen (Not Detect) Short CBC 10/04/23 Range/Units 14:35 WBC 13.4 H (4.8-10.8) X10*3/uL Hgb 16.3 (14.0-18.0) g/dl Hct 49.5 (42.0-52.0) % Plt Count 442 H D (160-400) X10*3/uL BMP 10/04/23 10/05/23 14:35 05:48 Sodium 137 Potassium 4.1 Chloride 101 Carbon Dioxide 23 BUN 10 Creatinine 0.89 0.82 Calcium 10.0 Liver Function 10/04/23 Range/Units 14:35 Total Bilirubin 0.6 (0.0-1.0) mg/dL Direct Bilirubin 0.3 (0.0-0.5) mg/dL AST 32 (5-37) U/L ALT 51 H (0-40) U/L Alkaline Phosphatase 63 (39-117) U/L Albumin 3.8 (3.5-5.0) g/dL All other labs normal. Assessment and Plan (1) Open wnd foot-complicated: Qualifiers: Encounter type: initial encounter Laterality: right Qualified Code(s): S91.301A - Unspecified open wound, right foot, initial encounter Status: Acute Plan Status post right great toe amputation at an outside institution now with necrotic changes at the wound base. There is a possibility of underlying osteomyelitis and MRI is recommended for further evaluation. Patient certainly will require long-term antibiotics at this is the case for limb preservation. Patient may benefit from local debridement with wound VAC placement possibly early next week. Silver alginate applied to wounds of both feet. This should continue on a daily basis. Procedures Date of Service Date of Service: 10/05/23
--- NOTE | 2023-10-05 12:28 | HO.PM.IMPN ---
Subjective Subjective Date of Service: 10/05/23 Interval History: denies fever/chills hostile/paranoid Review of Systems Review of Systems: Yes all other systems are reviewed and are negative Physical Exam Vital Signs: Vital Signs: Last Vital Signs Temp 98.5 F 10/05/23 07:13 Pulse 80 10/05/23 07:13 Resp 20 10/05/23 07:13 BP 104/55 L 10/05/23 07:13 Pulse Ox 97 10/05/23 07:13 O2 Del Method Room Air 10/05/23 07:13 BMI result Body Mass Index 25.8 Gen: in no acute distress HEENT: sclera anicteric, moist mucus membranes Neck: supple Lungs: clear to auscultation bilaterally Heart: regular rate and rhythm, no murmurs Abd: soft, non-tender, non-distended Ext: L foot s/p 3rd-5th toe amputations with dorsal erythema + plantar ulcer over 2nd MT head, R foot s/p great toe amputation with necrotic wound base Skin: see photos below Neuro: alert and oriented x3, no focal findings Psych: hostile Objective Data Active Medications Acetaminophen (Acetaminophen 325 Mg Tablet) 650 mg PO Q6H PRN PRN Reason: Pain, Mild (Pain Scale 1-3) Last Admin: 10/05/23 00:56 Dose: 650 mg Documented By: BRENNAN Ascorbic Acid (Ascorbic Acid 500 Mg Tablet) 500 mg PO DAILY [facility] Last Admin: 10/05/23 08:45 Dose: 500 mg Documented By: KEY Benzonatate (Benzonatate 100 Mg Capsule) 100 mg PO TID PRN PRN Reason: Cough Dextrose (Dextrose 50 % 25 Gm/50 Ml Syringe) 25 gm IVPUSH Q15M PRN; Protocol PRN Reason: per Hypoglycemia Standing Ord. Docusate Sodium (Docusate Sodium 100 Mg Capsule) 100 mg PO DAILY PRN PRN Reason: Constipation Enoxaparin Sodium (Enoxaparin Sodium 40 Mg/0.4 Ml Syringe) 40 mg SUBCUT Q24H [facility] Last Admin: 10/04/23 18:36 Dose: 40 mg Documented By: RICHELLEAVECA Gabapentin (Gabapentin 100 Mg Capsule) 200 mg PO TID [facility] Last Admin: 10/05/23 08:45 Dose: 200 mg Documented By: KEY Glipizide (Glipizide 10 Mg Tablet) 10 mg PO DAILY [facility] Last Admin: 10/05/23 08:44 Dose: 10 mg Documented By: KEY Glucose (Glucose Gel 15 Gm Gel..Gram.) 15 gm PO Q15M PRN; Protocol PRN Reason: per Hypoglycemia Standing Ord. Cefepime HCl 2 gm/ Sodium (Chloride) 50 mls @ 100 mls/hr IV Q12H [facility] Last Infusion: 10/05/23 04:20 Dose: Infused Documented By: BRENNAN Vancomycin HCl 750 mg/ Sodium (Chloride) 265 mls @ 265 mls/hr IV Q8H [facility] Last Infusion: 10/05/23 09:45 Dose: Infused Documented By: KEY Insulin Human Lispro (Insulin Lispro 100 Unit/Ml 3 Ml Vial) 0 unit SUBCUT QIDACHS [facility]; Protocol Last Admin: 10/05/23 11:46 Dose: Not Given Documented By: KEY Non-Admin Reason: No Insulin Coverage Melatonin (Melatonin 3 Mg Tablet) 6 mg PO BEDTIME PRN PRN Reason: Insomnia Ondansetron HCl (Ondansetron Hcl 4 Mg/2 Ml Vial) 4 mg IVPUSH Q8H PRN PRN Reason: Nausea and Vomiting Pharmacy Consult (Consult Rx Vancomycin Dosing) 1 each MISCELLANE DAILY PRN PRN Reason: Consult order Sodium Chloride (0.9 % Sodium Chloride Flush 3 Ml Syringe) 3 ml IVFLUSH QSHIFT [facility] Last Admin: 10/05/23 08:44 Dose: 3 ml Documented By: KEY Vitamin D (Cholecalciferol (Vitamin D3) 25 Mcg Tablet) 50 mcg PO DAILY [facility] Last Admin: 10/05/23 08:45 Dose: 50 mcg Documented By: KEY Labs 10/04/23 14:35 10/05/23 05:48 Labs: Laboratory Results - last 24 hr 10/04/23 10/04/23 10/04/23 14:35 14:52 17:13 MCV 82.8 MCH 27.3 MCHC 32.9 RDW 14.7 Plt Count 442 H D MPV 8.5 L Immature Gran % (Auto) 0.6 H Neut % (Auto) 85.9 H Lymph % (Auto) 7.2 L Braxton % (Auto) 5.9 Eos % (Auto) 0.1 Baso % (Auto) 0.3 Lymph # (Auto) 1.0 L Braxton # (Auto) 0.8 Eos # (Auto) 0.0 Baso # (Auto) 0.0 Abs Immat Gran (auto) 0.08 H Absolute Neuts (auto) 11.5 H Absolute Nucleated RBC 0.000 Nucleated RBC % (auto) 0.0 ESR 59 H Hold Purple Top Anion Gap 17 Estim Creat Clear Calc 100.4 Estimated GFR > 60 POC Glucose Random Glucose 163 H Lactic Acid 1.8 Calcium 10.0 Magnesium 1.7 Total Bilirubin 0.6 Direct Bilirubin 0.3 AST 32 ALT 51 H Alkaline Phosphatase 63 C-Reactive Protein 16.96 H Total Protein 8.0 Albumin 3.8 Procalcitonin 0.04 Urine Opiates Screen Not Detected Urine Fentanyl Screen Not Detected Ur Barbiturates Screen Not Detected Ur Phencyclidine Scrn Not Detected Ur Amphetamines Screen Not Detected U Benzodiazepines Scrn Not Detected Urine Cocaine Screen Not Detected U Marijuana (THC) Screen POSITIVE H Ethyl Alcohol < 10 COVID-19 ([facility]) Negative COVID-[facility] Com See Note 10/04/23 10/05/23 10/05/23 20:21 05:48 07:20 MCV MCH MCHC RDW Plt Count MPV Immature Gran % (Auto) Neut % (Auto) Lymph % (Auto) Braxton % (Auto) Eos % (Auto) Baso % (Auto) Lymph # (Auto) Braxton # (Auto) Eos # (Auto) Baso # (Auto) Abs Immat Gran (auto) Absolute Neuts (auto) Absolute Nucleated RBC Nucleated RBC % (auto) ESR Hold Purple Top SEE NOTE Anion Gap Estim Creat Clear Calc 108.9 Estimated GFR > 60 POC Glucose 149 H 163 H Random Glucose Lactic Acid Calcium Magnesium Total Bilirubin Direct Bilirubin AST ALT Alkaline Phosphatase C-Reactive Protein Total Protein Albumin Procalcitonin Urine Opiates Screen Urine Fentanyl Screen Ur Barbiturates Screen Ur Phencyclidine Scrn Ur Amphetamines Screen U Benzodiazepines Scrn Urine Cocaine Screen U Marijuana (THC) Screen Ethyl Alcohol COVID-19 ([facility]) COVID-[facility] 10/05/23 11:38 MCV MCH MCHC RDW Plt Count MPV Immature Gran % (Auto) Neut % (Auto) Lymph % (Auto) Braxton % (Auto) Eos % (Auto) Baso % (Auto) Lymph # (Auto) Braxton # (Auto) Eos # (Auto) Baso # (Auto) Abs Immat Gran (auto) Absolute Neuts (auto) Absolute Nucleated RBC Nucleated RBC % (auto) ESR Hold Purple Top Anion Gap Estim Creat Clear Calc Estimated GFR POC Glucose 113 Random Glucose Lactic Acid Calcium Magnesium Total Bilirubin Direct Bilirubin AST ALT Alkaline Phosphatase C-Reactive Protein Total Protein Albumin Procalcitonin Urine Opiates Screen Urine Fentanyl Screen Ur Barbiturates Screen Ur Phencyclidine Scrn Ur Amphetamines Screen U Benzodiazepines Scrn Urine Cocaine Screen U Marijuana (THC) Screen Ethyl Alcohol COVID-19 ([facility]) COVID-19 Clin Com Assessment and Plan (1) Acute osteomyelitis of left foot: Status: Acute Plan d2 48yo M with DM2, hx osteomyelitis with multiple toe amputations and hx MRSA + Group C streptococcal bacteremia, HTN, PTSD, mood disorder sent in on section 12 for delusions/refusing wound care + VNA services admitted for osteomyelitis R foot osteomyelitis - Surgery consulted, will need local debridement/wound VAC next week - ID consult pending, vanco + cefepime 10/04- - follow BCx - MRI and arterial duplex paranoia/delusional behavior - Psychiatry consultation DM2 - hold MTF + GPZ + Trulicity, give correction-dose lispro peripheral neuropathy - gabapentin VTE ppx - LMWH dispo - TBD In my clinical judgment, the patient requires continued inpatient hospitalization for the following reasons: wound management, IV ABX Total time managing care of this patient today: 35 minutes. Quality Stroke Does the patient have a stroke diagnosis?: No VTE Prior VTE?: No VTE Risk Level:: Medical - moderate - high VTE Device Contraindication: Treatment Not Indicated VTE Drug Contraindication: N/A - Med Ordered
--- NOTE | 2023-10-05 13:17 | MHC.CM.PN ---
Attempted to meet w/Pt; upon arrival, Pt w/escalated verbal behaviors towards another previously present staff member. Upon entrance, this CM identified self and Pt requested requested that both other staff member and this CM exit room and consult w/Pt Advocate, Stacey, prior to speaking w/him. Exited Pt's room per his request and spoke w/Stacey. Reviewed Pt's potential plan; at this time, depending on how his clinical course goes, it will be SNF VS home w/services. See surgical consult. CM to follow.
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
--- NOTE | 2023-10-05 14:25 | MHC.CM.PN ---
Referral placed to [facility] for follow; was previously on service w/them per records. CM to follow.
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
[2023-10-05 20:00] VITALS: BP 115/69; PULSE 80; RESP 16; TEMP 36.4; O2SAT 98
[2023-10-06 00:18] VITALS: BP 109/64; PULSE 80; RESP 16; TEMP 36.8; O2SAT 98
--- NOTE | 2023-10-06 00:20 | W.PM.IDCN ---
History of Present Illness Data of Consult Service Date: 10/05/23 Requesting physician: Florence Castanon Primary Care Provider: STEPHANIE Marti HPI Reason for consult: right foot infection He presents with right foot redness and swelling. He has no fever or chills. He has had prior MSSA and Group C strep infection. He has had MRSA in wounds in past. He has had wound care. I had seen him before for left foot cellulitis. Review of Systems Review of Systems: Yes all other systems are reviewed and are negative PMFSH Past Medical History Medical History Nausea and vomiting Marijuana smoker MRSA (methicillin resistant Staphylococcus aureus) GERD (gastroesophageal reflux disease) Bacteremia due to Streptococcus Posttraumatic stress disorder Staphylococcus aureus bacteremia 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 Bacterial infection due to Streptococcus, group C Acidosis, lactic Cellulitis Right foot infection Anxiety Diabetes type 2, controlled Family History Family history: reviewed and not pertinent Surgical History Surgical History History of amputation (12/11/22) History of partial amputation of toe (10/11/22) History of incision and drainage History of laparoscopic cholecystectomy Social History Social History Household Members: None Housing: Apartment Housing Other:: refused to answer Do you presently have visiting nurse or other home services: Yes Unable to assess alcohol history related to: Refusing to respond Alcohol intake: current Alcohol intake frequency: holidays/special occasions only Alcohol type: beer Comment: refuses alarms, camera. Education provided about safety Patient Tobacco Use Status: Refuse Tobacco use screen Tobacco use type: Cigarette Cigarette Packs Per Day: 1 Cigarettes Per Day: 10 Years Smoked: 36 years Second Hand Smoke Exposure: No Substance Use Type: Marijuana service: No Current occupational status: disabled Meds Allergies Allergy/AdvReac Type Severity Reaction Status Date / Time amoxicillin [AMOXICILLIN] Allergy Severe ANAPHYLAXIS Verified 01/19/23 19:10 oxycodone [From Tylox] Allergy Intermediate Itching Verified 01/19/23 19:10 hydrocodone [HYDROCODONE] Allergy Unknown UNKNOWN Verified 01/19/23 19:10 Active Medications: Current Medications Acetaminophen (Acetaminophen 325 Mg Tablet) 650 mg PO Q6H PRN PRN Reason: Pain, Mild (Pain Scale 1-3) Last Admin: 10/05/23 00:56 Dose: 650 mg Ascorbic Acid (Ascorbic Acid 500 Mg Tablet) 500 mg PO DAILY [facility] Last Admin: 10/05/23 08:45 Dose: 500 mg Benzonatate (Benzonatate 100 Mg Capsule) 100 mg PO TID PRN PRN Reason: Cough Dextrose (Dextrose 50 % 25 Gm/50 Ml Syringe) 25 gm IVPUSH Q15M PRN; Protocol PRN Reason: per Hypoglycemia Standing Ord. Docusate Sodium (Docusate Sodium 100 Mg Capsule) 100 mg PO DAILY PRN PRN Reason: Constipation Enoxaparin Sodium (Enoxaparin Sodium 40 Mg/0.4 Ml Syringe) 40 mg SUBCUT Q24H [facility] Last Admin: 10/05/23 17:33 Dose: 40 mg Gabapentin (Gabapentin 100 Mg Capsule) 200 mg PO TID [facility] Last Admin: 10/05/23 22:30 Dose: 200 mg Glucose (Glucose Gel 15 Gm Gel..Gram.) 15 gm PO Q15M PRN; Protocol PRN Reason: per Hypoglycemia Standing Ord. Cefepime HCl 2 gm/ Sodium (Chloride) 50 mls @ 100 mls/hr IV Q12H [facility] Last Infusion: 10/05/23 18:06 Dose: Infused Vancomycin HCl 750 mg/ Sodium (Chloride) 265 mls @ 265 mls/hr IV Q8H [facility] Last Admin: 10/05/23 23:11 Dose: 265 mls/hr Insulin Human Lispro (Insulin Lispro 100 Unit/Ml 3 Ml Vial) 0 unit SUBCUT QIDACHS [facility]; Protocol Last Admin: 10/05/23 22:07 Dose: Not Given Melatonin (Melatonin 3 Mg Tablet) 6 mg PO BEDTIME PRN PRN Reason: Insomnia Last Admin: 10/05/23 22:30 Dose: 6 mg Ondansetron HCl (Ondansetron Hcl 4 Mg/2 Ml Vial) 4 mg IVPUSH Q8H PRN PRN Reason: Nausea and Vomiting Pharmacy Consult (Consult Rx Vancomycin Dosing) 1 each MISCELLANE DAILY PRN PRN Reason: Consult order Sodium Chloride (0.9 % Sodium Chloride Flush 3 Ml Syringe) 3 ml IVFLUSH QSHIFT [facility] Last Admin: 10/05/23 22:31 Dose: 3 ml Vitamin D (Cholecalciferol (Vitamin D3) 25 Mcg Tablet) 50 mcg PO DAILY [facility] Last Admin: 10/05/23 08:45 Dose: 50 mcg Home Medications Medication Instructions Recorded Confirmed Last Taken Type cholecalciferol (vitamin D3) 50 50 mcg PO DAILY 11/04/21 10/04/23 10/03/23 History mcg (2,000 unit) capsule gabapentin 100 mg capsule 200 mg PO TID 10/06/22 10/04/23 01/19/23 History metformin 500 mg tablet 500 mg PO BID 10/06/22 10/04/23 10/03/23 History ascorbic acid (vitamin C) 500 mg 500 mg PO DAILY 11/29/22 10/04/23 10/03/23 History tablet dulaglutide 1.5 mg/0.5 mL 1.5 mg subcut FR 11/29/22 10/04/23 10/03/23 History subcutaneous pen injector (Trulicity) glipizide 5 mg tablet 10 mg PO DAILY 11/29/22 10/04/23 10/03/23 History doxycycline monohydrate 100 mg 100 mg PO BID 10/04/23 10/04/23 10/04/23 History capsule Physical Exam Vital Signs: Vital Signs: Last Vital Signs Temp 98.2 F 10/06/23 00:18 Pulse 80 10/06/23 00:18 Resp 16 10/06/23 00:18 BP 109/64 10/06/23 00:18 Pulse Ox 98 10/06/23 00:18 O2 Del Method Room Air 10/06/23 00:18 BMI result Body Mass Index 25.8 Const: General: cooperative HEENT: Head: Yes normal to inspection Face and sinus: Yes normal facial exam Mouth: Normal oral and palatal mucosa present Teeth and gingiva: dentition normal Eyes: General: appearance normal, both eyes and all related structures Pupils: Equal, round and reactive pupils present Resp: Effort & Inspection: normal respiratory effort Cardio: Rate: regular rate Rhythm: regular rhythm GI: Palpation (GI): Soft to palpation and nontender : General: Yes no CVA tenderness Back/Spine/Pelvis: Other: right foot necrotic Back: no CVA tenderness Skin: General skin exam: no rashes or lesions noted Neuro: General: moves all extremities Cranial nerves: Yes Equal, round and reactive pupils present Extrem: Other: necrotic areas right foot ,armin post op General: Yes normal to inspection Psych: Appearance: grossly normal Results Labs 10/04/23 14:35 10/06/23 06:00 Labs: BMP 10/05/23 05:48 Creatinine 0.82 Microbiology Microbiology Results: Microbiology 10/04/23 14:50 Blood - Venous Blood Culture - Preliminary No growth after 24 hours. 10/04/23 14:35 Blood - Venous Blood Culture - Preliminary No growth after 24 hours. Assessment and Plan (1) Elevated WBC count: Qualifiers: Leukocytosis type: unspecified Qualified Code(s): D72.829 - Elevated white blood cell count, unspecified Status: Acute (2) Bacterial infection due to Streptococcus, group C: Status: Acute (3) Acute osteomyelitis of left foot: Status: Acute Plan He has MSSA and strep likely or could be MRSA He has cultures pending Would continue Cefepime and Vancomycin. Imaging if able Wound care evaluation,d/w Dr Terrell,may do wound vac. Antibiotics depends on culture resulsts possibly.
[2023-10-06 07:11] VITALS: BP 93/58; PULSE 82; RESP 16; TEMP 37.6; O2SAT 98
[2023-10-06 07:29] LABS: Creatinine Clr Calc Pharmacy 125.8; Estimated Glomerular Filt Rate > 60
--- NOTE | 2023-10-06 15:05 | HO.PM.IMPN ---
Subjective Subjective Date of Service: 10/06/23 Interval History: Offers no acute complaints, tolerating diet no nausea, no vomiting ,no abdominal pain, no issues overnight. Review of Systems All other system reviewed and negative. Physical Exam Vital Signs: Vital Signs: Last Vital Signs Temp 99.7 F 10/06/23 07:11 Pulse 82 10/06/23 07:11 Resp 16 10/06/23 07:11 BP 93/58 L 10/06/23 07:11 Pulse Ox 98 10/06/23 07:11 O2 Del Method Room Air 10/06/23 07:11 O2 Flow Rate 98 10/06/23 07:11 BMI result Body Mass Index 25.8 Const: Other: Gen: Awake alert resting comfortably, in no acute distress HEENT: sclera anicteric, moist mucus membranes Neck: supple Lungs: clear to auscultation bilaterally Heart: regular rate and rhythm, no murmurs Abd: soft, non-tender, non-distended Ext: L foot s/p 3rd-5th toe amputations with dorsal erythema + plantar ulcer over 2nd MT head, R foot s/p great toe amputation with necrotic wound base see photos in admission note Neuro: alert and oriented x3, no focal findings Psych: hostile Objective Data Active Medications Acetaminophen (Acetaminophen 325 Mg Tablet) 650 mg PO Q6H PRN PRN Reason: Pain, Mild (Pain Scale 1-3) Last Admin: 10/06/23 12:01 Dose: 650 mg Documented By: JESSE Ascorbic Acid (Ascorbic Acid 500 Mg Tablet) 500 mg PO DAILY [facility] Last Admin: 10/06/23 08:18 Dose: 500 mg Documented By: JESSE Benzonatate (Benzonatate 100 Mg Capsule) 100 mg PO TID PRN PRN Reason: Cough Dextrose (Dextrose 50 % 25 Gm/50 Ml Syringe) 25 gm IVPUSH Q15M PRN; Protocol PRN Reason: per Hypoglycemia Standing Ord. Docusate Sodium (Docusate Sodium 100 Mg Capsule) 100 mg PO DAILY PRN PRN Reason: Constipation Enoxaparin Sodium (Enoxaparin Sodium 40 Mg/0.4 Ml Syringe) 40 mg SUBCUT Q24H [facility] Last Admin: 10/05/23 17:33 Dose: 40 mg Documented By: KEY Gabapentin (Gabapentin 100 Mg Capsule) 200 mg PO TID [facility] Last Admin: 10/06/23 13:56 Dose: 200 mg Documented By: JESSE Glucose (Glucose Gel 15 Gm Gel..Gram.) 15 gm PO Q15M PRN; Protocol PRN Reason: per Hypoglycemia Standing Ord. Cefepime HCl 2 gm/ Sodium (Chloride) 50 mls @ 100 mls/hr IV Q12H [facility] Last Infusion: 10/06/23 05:02 Dose: Infused Documented By: HEATHER Vancomycin HCl 750 mg/ Sodium (Chloride) 265 mls @ 265 mls/hr IV Q8H [facility] Last Infusion: 10/06/23 09:18 Dose: Infused Documented By: JESSE Daptomycin 500 mg/ Sodium (Chloride) 60 mls @ 100.793 mls/hr IV Q24H [facility] Last Admin: 10/06/23 13:57 Dose: 100.79 mls/hr Documented By: JESSE Insulin Human Lispro (Insulin Lispro 100 Unit/Ml 3 Ml Vial) 0 unit SUBCUT QIDACHS [facility]; Protocol Last Admin: 10/06/23 12:02 Dose: 2 unit Documented By: JESSE Melatonin (Melatonin 3 Mg Tablet) 6 mg PO BEDTIME PRN PRN Reason: Insomnia Last Admin: 10/05/23 22:30 Dose: 6 mg Documented By: HEATHER Ondansetron HCl (Ondansetron Hcl 4 Mg/2 Ml Vial) 4 mg IVPUSH Q8H PRN PRN Reason: Nausea and Vomiting Pharmacy Consult (Consult Rx Vancomycin Dosing) 1 each MISCELLANE DAILY PRN PRN Reason: Consult order Sodium Chloride (0.9 % Sodium Chloride Flush 3 Ml Syringe) 3 ml IVFLUSH QSHIFT [facility] Last Admin: 10/06/23 08:20 Dose: 3 ml Documented By: JESSE Vitamin D (Cholecalciferol (Vitamin D3) 25 Mcg Tablet) 50 mcg PO DAILY [facility] Last Admin: 10/06/23 08:18 Dose: 50 mcg Documented By: JESSE Labs 10/04/23 14:35 10/06/23 06:00 Labs: Laboratory Results - last 24 hr 10/05/23 10/05/23 10/06/23 17:32 20:19 06:00 Hold Purple Top Estim Creat Clear Calc 125.8 Estimated GFR > 60 POC Glucose 86 118 H Random Vancomycin 10/06/23 10/06/23 10/06/23 06:32 07:16 11:26 Hold Purple Top SEE NOTE Estim Creat Clear Calc Estimated GFR POC Glucose 101 151 H Random Vancomycin 10/06/23 14:08 Hold Purple Top Estim Creat Clear Calc Estimated GFR POC Glucose Random Vancomycin 14.0 L Microbiology Microbiology Results: Microbiology 10/04/23 14:50 Blood Culture - Preliminary Blood - Venous No growth after 24 hours. 10/04/23 14:35 Blood Culture - Preliminary Blood - Venous No growth after 24 hours. Assessment and Plan (1) Acute osteomyelitis of left foot: Status: Acute Plan 48yo M with DM2, hx osteomyelitis with multiple toe amputations and hx MRSA + Group C streptococcal bacteremia, HTN, PTSD, mood disorder sent in on section 12 for delusions/refusing wound care + VNA services admitted for osteomyelitis R foot osteomyelitis - continue wound care, MRI right foot showed osteomyelitis of 5th metatarsal base with overlying wound in abscess, osteomyelitis this of 3rd metatarsal, probable septic tenosynovitis of the tibialis anterior tendon Case discussed with ID she recommend IV daptomycin started on 10/06/23, will DC IV vancomycin and cefepime that was started on October 04 , will monitor CPK, creatinine and CBC Q weekly while on dapto Surgery recommend local debridement/wound VAC next week Duplex scan lower extremity artery on Rt. showed severe peripheral artery disease, occlusion of the mid and distal SFA with reconstitution of the popliteal artery via collaterals Blood cultures x2 negative. paranoia/delusional behavior seen by Psychiatry they do not feel patient need inpatient psychiatric level of care or involuntary psychiatric treatment under Section 12 b, patient is noted to have capacity to make medical decisions DM2 - stable blood sugars, MTF + GPZ + Trulicity on hold, will continue correction-dose lispro peripheral neuropathy continue gabapentin VTE ppx - LMWH In my clinical judgment, the patient requires continued inpatient hospitalization for the following reasons: wound management, IV ABX Total time managing care of this patient today: 35 minutes. Quality Stroke Does the patient have a stroke diagnosis?: No VTE Prior VTE?: No VTE Risk Level:: Medical - moderate - high VTE Device Contraindication: Treatment Not Indicated VTE Drug Contraindication: N/A - Med Ordered
[2023-10-06 15:41] VITALS: BP 102/62; PULSE 74; RESP 16; TEMP 36.3; O2SAT 100
--- NOTE | 2023-10-06 17:56 | PM.PNGS ---
Subjective Subjective Date of Service: 10/06/23 Interval history: pt complaining of some pain, needs more than tylenol Physical Exam Vital Signs: Vital Signs: Last Vital Signs Temp 97.4 F 10/06/23 15:41 Pulse 74 10/06/23 15:41 Resp 16 10/06/23 15:41 BP 102/62 10/06/23 15:41 Pulse Ox 100 10/06/23 15:41 O2 Del Method Room Air 10/06/23 15:41 O2 Flow Rate 98 10/06/23 07:11 BMI result Body Mass Index 25.8 Extrem: Other: left plantar area - open into necrotic tendon -irrigated, cleaned and packed with saline gauze, decreased sensation. right foot- some eschar on surface soft with purulent material draining around - rest of eschar good and solid and dry - this area cleaned and the soft eschar peeled back and saline gauze packing used. Objective Data Active Medications Acetaminophen (Acetaminophen 325 Mg Tablet) 650 mg PO Q6H PRN PRN Reason: Pain, Mild (Pain Scale 1-3) Last Admin: 10/06/23 12:01 Dose: 650 mg Documented By: JESSE Ascorbic Acid (Ascorbic Acid 500 Mg Tablet) 500 mg PO DAILY [facility] Last Admin: 10/06/23 08:18 Dose: 500 mg Documented By: JESSE Benzonatate (Benzonatate 100 Mg Capsule) 100 mg PO TID PRN PRN Reason: Cough Collagenase (Collagenase Clostridium Hist. 30 Gm Tube) 1 appl TOPICAL DAILY [facility]; Protocol Dextrose (Dextrose 50 % 25 Gm/50 Ml Syringe) 25 gm IVPUSH Q15M PRN; Protocol PRN Reason: per Hypoglycemia Standing Ord. Docusate Sodium (Docusate Sodium 100 Mg Capsule) 100 mg PO DAILY PRN PRN Reason: Constipation Enoxaparin Sodium (Enoxaparin Sodium 40 Mg/0.4 Ml Syringe) 40 mg SUBCUT Q24H [facility] Last Admin: 10/06/23 17:51 Dose: Not Given Documented By: JESSE Non-Admin Reason: Patient Refused Gabapentin (Gabapentin 100 Mg Capsule) 200 mg PO TID [facility] Last Admin: 10/06/23 13:56 Dose: 200 mg Documented By: JESSE Glucose (Glucose Gel 15 Gm Gel..Gram.) 15 gm PO Q15M PRN; Protocol PRN Reason: per Hypoglycemia Standing Ord. Daptomycin 500 mg/ Sodium (Chloride) 60 mls @ 100.793 mls/hr IV Q24H [facility] Last Infusion: 10/06/23 14:33 Dose: Infused Documented By: JESSE Insulin Human Lispro (Insulin Lispro 100 Unit/Ml 3 Ml Vial) 0 unit SUBCUT QIDACHS [facility]; Protocol Last Admin: 10/06/23 17:12 Dose: Not Given Documented By: JESSE Non-Admin Reason: No Insulin Coverage Melatonin (Melatonin 3 Mg Tablet) 6 mg PO BEDTIME PRN PRN Reason: Insomnia Last Admin: 10/05/23 22:30 Dose: 6 mg Documented By: HEATHER Ondansetron HCl (Ondansetron Hcl 4 Mg/2 Ml Vial) 4 mg IVPUSH Q8H PRN PRN Reason: Nausea and Vomiting Sodium Chloride (0.9 % Sodium Chloride Flush 3 Ml Syringe) 3 ml IVFLUSH QSHIFT [facility] Last Admin: 10/06/23 16:27 Dose: Not Given Documented By: JESSE Non-Admin Reason: No Insulin Coverage Vitamin D (Cholecalciferol (Vitamin D3) 25 Mcg Tablet) 50 mcg PO DAILY [facility] Last Admin: 10/06/23 08:18 Dose: 50 mcg Documented By: JESSE Labs 10/04/23 14:35 10/06/23 06:00 Labs: Laboratory Results - last 24 hr 10/05/23 10/05/23 10/06/23 17:32 20:19 06:00 Hold Purple Top Estim Creat Clear Calc 125.8 Estimated GFR > 60 POC Glucose 86 118 H Random Vancomycin 10/06/23 10/06/23 10/06/23 06:32 07:16 11:26 Hold Purple Top SEE NOTE Estim Creat Clear Calc Estimated GFR POC Glucose 101 151 H Random Vancomycin 10/06/23 10/06/23 14:08 15:36 Hold Purple Top Estim Creat Clear Calc Estimated GFR POC Glucose 132 H Random Vancomycin 14.0 L Microbiology Microbiology Results: Microbiology 10/04/23 14:50 Blood Culture - Preliminary Blood - Venous No growth after 48 hours. 10/04/23 14:35 Blood Culture - Preliminary Blood - Venous No growth after 48 hours. Procedures Date of Service Date of Service: 10/06/23 Progress Note: A&P Assessment and plan (1) Acute osteomyelitis of left foot: Status: Acute Assessment and Plan: 48 year old diabetic male with diabetic feet wounds - left side ? underlying osteo as well - will get plain films and evaluate - has some necrotic tendon present the right side s/p extensive resection of infected bone and soft tissue by Dr Grace at [facility] - has remaining underlying osteo and soft tissue necrosis - dressings changed and will follow along. may need more extensive debridement but nothing more urgently - would have him see Dr Grace on dc for further surgical debridment and cont with wet to dry dressings for now. santyl on the left foot open area daily. iv antibx for osteo as per med team. Time Spent With Patient Time: Total time managing care of this patient today ____ minutes. Quality Stroke Does the patient have a stroke diagnosis?: No VTE Prior VTE?: No VTE Risk Level:: Medical - moderate - high VTE Device Contraindication: Treatment Not Indicated VTE Drug Contraindication: N/A - Med Ordered
[2023-10-06 20:00] VITALS: BP 96/55; PULSE 75; RESP 19; TEMP 36.7; O2SAT 99
[2023-10-07 00:33] VITALS: BP 103/67; PULSE 82; RESP 18; TEMP 36.8; O2SAT 98
--- NOTE | 2023-10-07 06:34 | PC.NURSE ---
Pt's bedtime POC 155. Pt refused to take 2 units of insulin per sliding scale. This RN tried to educate the pt about the importance of taking insulin, but became agitated and started yelling at this RN. MD Samuel was notified of the pt's refusal of insulin. Will continue to monitor pt's POC.
[2023-10-07 07:34] VITALS: BP 120/64; PULSE 81; RESP 16; TEMP 36.3; O2SAT 98
--- NOTE | 2023-10-07 09:36 | PC.NURSE ---
This manual writer went in to patients room with security to address his behavior toward nursing staff. Encouraged respect and acceptance of care. Patient continues to interrupt and ramble about things not pertaining to respecting staff. Pt unable to accept responsibility for poor behavior and this manual writer and security left the room.
--- NOTE | 2023-10-07 12:06 | PC.NURSE ---
Attempted to educated patient about severeness of foot wounds and his diabetes and potential for amputation. This upset the patient and did not want to speak about his diabetes and stated My diabetes is perfectly under control. My A1C is perfect and I will not be getting any more amputations. Please see MD notes related to feet wounds. Pt unable to be educated at this time.
--- NOTE | 2023-10-07 13:05 | HO.PM.IMPN ---
Subjective Subjective Date of Service: 10/07/23 Interval History: Complaining of bilateral foot discomfort, tolerating diet, no nausea, no vomiting, no diarrhea, no bowel movement since admission, no fevers, no chills no other acute issues, hostile behavior. Review of Systems All other system reviewed and negative. Physical Exam Vital Signs: Vital Signs: Last Vital Signs Temp 97.4 F 10/07/23 07:34 Pulse 81 10/07/23 07:34 Resp 16 10/07/23 07:34 BP 120/64 10/07/23 07:34 Pulse Ox 98 10/07/23 07:34 O2 Del Method Room Air 10/07/23 07:34 O2 Flow Rate 98 10/06/23 07:11 BMI result Body Mass Index 25.8 Const: Other: Gen: Awake alert resting comfortably, in no acute distress HEENT: sclera anicteric, moist mucus membranes Neck: supple Lungs: clear to auscultation bilaterally Heart: regular rate and rhythm, no murmurs Abd: soft, non-tender, non-distended Ext: L foot s/p 3rd-5th toe amputations with dorsal erythema + plantar ulcer over 2nd MT head, R foot s/p great toe amputation with necrotic wound base (see photos admission note) Neuro: alert and oriented x3, no focal findings. Psych: hostile behavior Objective Data Active Medications Acetaminophen (Acetaminophen 325 Mg Tablet) 650 mg PO Q6H PRN PRN Reason: Pain, Mild (Pain Scale 1-3) Last Admin: 10/06/23 17:57 Dose: 650 mg Documented By: JESSE Ascorbic Acid (Ascorbic Acid 500 Mg Tablet) 500 mg PO DAILY [facility] Last Admin: 10/07/23 08:47 Dose: 500 mg Documented By: JESSE Benzonatate (Benzonatate 100 Mg Capsule) 100 mg PO TID PRN PRN Reason: Cough Collagenase (Collagenase Clostridium Hist. 30 Gm Tube) 1 appl TOPICAL DAILY [facility]; Protocol Dextrose (Dextrose 50 % 25 Gm/50 Ml Syringe) 25 gm IVPUSH Q15M PRN; Protocol PRN Reason: per Hypoglycemia Standing Ord. Docusate Sodium (Docusate Sodium 100 Mg Capsule) 100 mg PO DAILY PRN PRN Reason: Constipation Enoxaparin Sodium (Enoxaparin Sodium 40 Mg/0.4 Ml Syringe) 40 mg SUBCUT Q24H [facility] Last Admin: 10/06/23 17:51 Dose: Not Given Documented By: JESSE Non-Admin Reason: Patient Refused Gabapentin (Gabapentin 100 Mg Capsule) 200 mg PO TID [facility] Last Admin: 10/07/23 08:47 Dose: 200 mg Documented By: JESSE Glucose (Glucose Gel 15 Gm Gel..Gram.) 15 gm PO Q15M PRN; Protocol PRN Reason: per Hypoglycemia Standing Ord. Daptomycin 500 mg/ Sodium (Chloride) 60 mls @ 100.793 mls/hr IV Q24H [facility] Last Infusion: 10/06/23 14:33 Dose: Infused Documented By: JESSE Insulin Human Lispro (Insulin Lispro 100 Unit/Ml 3 Ml Vial) 0 unit SUBCUT QIDACHS [facility]; Protocol Last Admin: 10/07/23 11:49 Dose: Not Given Documented By: JESSE Non-Admin Reason: No Insulin Coverage Melatonin (Melatonin 3 Mg Tablet) 6 mg PO BEDTIME PRN PRN Reason: Insomnia Last Admin: 10/06/23 22:10 Dose: 6 mg Documented By: HEATHER Ondansetron HCl (Ondansetron Hcl 4 Mg/2 Ml Vial) 4 mg IVPUSH Q8H PRN PRN Reason: Nausea and Vomiting Sodium Chloride (0.9 % Sodium Chloride Flush 3 Ml Syringe) 3 ml IVFLUSH QSHIFT [facility] Last Admin: 10/07/23 08:48 Dose: 3 ml Documented By: JESSE Tramadol HCl (Tramadol Hcl 50 Mg Tablet) 50 mg PO BID PRN PRN Reason: Pain, Moderate(Pain Scale 4-6) Last Admin: 10/07/23 08:47 Dose: 50 mg Documented By: JESSE Vitamin D (Cholecalciferol (Vitamin D3) 25 Mcg Tablet) 50 mcg PO DAILY [facility] Last Admin: 10/07/23 08:47 Dose: 50 mcg Documented By: JESSE Labs 10/04/23 14:35 10/06/23 06:00 Labs: Laboratory Results - last 24 hr 10/06/23 10/06/23 10/06/23 14:08 15:36 20:24 POC Glucose 132 H 155 H Random Vancomycin 14.0 L 10/07/23 10/07/23 07:37 11:41 POC Glucose 162 H 145 H Random Vancomycin Microbiology Microbiology Results: Microbiology 10/04/23 14:50 Blood Culture - Preliminary Blood - Venous No growth after 48 hours. 10/04/23 14:35 Blood Culture - Preliminary Blood - Venous No growth after 48 hours. Assessment and Plan (1) Acute osteomyelitis of left foot: Status: Acute Plan 48yo M with DM2, hx osteomyelitis with multiple toe amputations and hx MRSA + Group C streptococcal bacteremia, HTN, PTSD, mood disorder sent in on section 12 for delusions/refusing wound care + VNA services admitted for osteomyelitis R foot osteomyelitis continue wound care, MRI right foot showed osteomyelitis of 5th metatarsal base with overlying wound in abscess, osteomyelitis this of 3rd metatarsal, probable septic tenosynovitis of the tibialis anterior tendon Case discussed with ID she recommend IV daptomycin started on 10/06/23, will DC IV vancomycin and cefepime that was started on October 04 , will monitor CPK, creatinine and CBC Q weekly while on dapto Will discuss with General surgery regarding local debridement/wound VAC next week Blood cultures x2 negative Duplex scan lower extremity artery on Rt. showed severe peripheral artery disease, occlusion of the mid and distal SFA with reconstitution of the popliteal artery via collaterals. Continue wet to dry dressing right foot, and Santyl on left foot open area daily Continue Tylenol and Ultram for pain paranoia/delusional behavior seen by Psychiatry they do not feel patient need inpatient psychiatric level of care or involuntary psychiatric treatment under Section 12 b, patient is noted to have capacity to make medical decisions DM2 - stable blood sugars, MTF + GPZ + Trulicity on hold, will continue correction-dose lispro peripheral neuropathy continue gabapentin VTE ppx - LMWH In my clinical judgment, the patient requires continued inpatient hospitalization for the following reasons: wound management, IV ABX Total time managing care of this patient today: 35 minutes. Quality Stroke Does the patient have a stroke diagnosis?: No VTE Prior VTE?: No VTE Risk Level:: Medical - moderate - high VTE Device Contraindication: Treatment Not Indicated VTE Drug Contraindication: N/A - Med Ordered
--- NOTE | 2023-10-07 17:15 | PM.PNGS ---
Subjective Subjective Date of Service: 10/07/23 Interval history: patient doing okay no new complaints Physical Exam Vital Signs: Vital Signs: Last Vital Signs Temp 97.4 F 10/07/23 07:34 Pulse 81 10/07/23 07:34 Resp 16 10/07/23 07:34 BP 120/64 10/07/23 07:34 Pulse Ox 98 10/07/23 07:34 O2 Del Method Room Air 10/07/23 07:34 O2 Flow Rate 98 10/06/23 07:11 BMI result Body Mass Index 25.8 Extrem: Other: dressings intact Objective Data Active Medications Acetaminophen (Acetaminophen 325 Mg Tablet) 650 mg PO Q6H PRN PRN Reason: Pain, Mild (Pain Scale 1-3) Last Admin: 10/07/23 13:30 Dose: 650 mg Documented By: JESSE Ascorbic Acid (Ascorbic Acid 500 Mg Tablet) 500 mg PO DAILY [facility] Last Admin: 10/07/23 08:47 Dose: 500 mg Documented By: JESSE Benzonatate (Benzonatate 100 Mg Capsule) 100 mg PO TID PRN PRN Reason: Cough Collagenase (Collagenase Clostridium Hist. 30 Gm Tube) 1 appl TOPICAL DAILY [facility]; Protocol Last Admin: 10/07/23 13:40 Dose: 1 appl Documented By: JESSE Dextrose (Dextrose 50 % 25 Gm/50 Ml Syringe) 25 gm IVPUSH Q15M PRN; Protocol PRN Reason: per Hypoglycemia Standing Ord. Docusate Sodium (Docusate Sodium 100 Mg Capsule) 100 mg PO DAILY PRN PRN Reason: Constipation Enoxaparin Sodium (Enoxaparin Sodium 40 Mg/0.4 Ml Syringe) 40 mg SUBCUT Q24H [facility] Last Admin: 10/06/23 17:51 Dose: Not Given Documented By: JESSE Non-Admin Reason: Patient Refused Gabapentin (Gabapentin 100 Mg Capsule) 200 mg PO TID [facility] Last Admin: 10/07/23 15:45 Dose: 200 mg Documented By: JESSE Glucose (Glucose Gel 15 Gm Gel..Gram.) 15 gm PO Q15M PRN; Protocol PRN Reason: per Hypoglycemia Standing Ord. Daptomycin 500 mg/ Sodium (Chloride) 60 mls @ 100.793 mls/hr IV Q24H [facility] Last Infusion: 10/07/23 14:06 Dose: Infused Documented By: JESSE Insulin Human Lispro (Insulin Lispro 100 Unit/Ml 3 Ml Vial) 0 unit SUBCUT QIDACHS [facility]; Protocol Last Admin: 10/07/23 11:49 Dose: Not Given Documented By: JESSE Non-Admin Reason: No Insulin Coverage Melatonin (Melatonin 3 Mg Tablet) 6 mg PO BEDTIME PRN PRN Reason: Insomnia Last Admin: 10/06/23 22:10 Dose: 6 mg Documented By: HEATHER Ondansetron HCl (Ondansetron Hcl 4 Mg/2 Ml Vial) 4 mg IVPUSH Q8H PRN PRN Reason: Nausea and Vomiting Sodium Chloride (0.9 % Sodium Chloride Flush 3 Ml Syringe) 3 ml IVFLUSH [facility] Last Admin: 10/07/23 08:48 Dose: 3 ml Documented By: JESSE Tramadol HCl (Tramadol Hcl 50 Mg Tablet) 50 mg PO BID PRN PRN Reason: Pain, Moderate(Pain Scale 4-6) Last Admin: 10/07/23 15:45 Dose: 50 mg Documented By: JESSE Vitamin D (Cholecalciferol (Vitamin D3) 25 Mcg Tablet) 50 mcg PO DAILY [facility] Last Admin: 10/07/23 08:47 Dose: 50 mcg Documented By: JESSE Labs 10/04/23 14:35 10/06/23 06:00 Labs: Laboratory Results - last 24 hr 10/06/23 10/07/23 10/07/23 20:24 07:37 11:41 POC Glucose 155 H 162 H 145 H 10/07/23 17:07 POC Glucose 169 H Microbiology Microbiology Results: Microbiology 10/04/23 14:50 Blood Culture - Preliminary Blood - Venous No growth after 48 hours. 10/04/23 14:35 Blood Culture - Preliminary Blood - Venous No growth after 48 hours. Procedures Date of Service Date of Service: 10/07/23 Progress Note: A&P Assessment and plan (1) Diabetic infection of right foot: Status: Acute Assessment and Plan: 48-year-old male diabetic with bilateral foot wounds and infection. Right foot status post extensive surgical debridement with active osteomyelitis treated with IV antibiotics. ABIs carried out reveals that the right foot is poorly perfused with DANIEL of 0.44. At this point will get vascular surgery consult to evaluate. Patient says that years ago he had some procedure at [facility] but does not want to go back to [facility]. Left foot wound is more minimal on the plantar aspect and DANIEL here is fair. X-ray today does not reveal any osteomyelitis of the left foot. Plan to continue Dressing changes and get vascular opinion tomorrow Time Spent With Patient Time: Total time managing care of this patient today ____ minutes. Quality Stroke Does the patient have a stroke diagnosis?: No VTE Prior VTE?: No VTE Risk Level:: Medical - moderate - high VTE Device Contraindication: Treatment Not Indicated VTE Drug Contraindication: N/A - Med Ordered
[2023-10-07 20:00] VITALS: RESP 18
[2023-10-08 03:09] VITALS: BP 111/67; PULSE 63; RESP 16; TEMP 36; O2SAT 97
[2023-10-08 07:02] VITALS: BP 129/78; PULSE 70; RESP 16; TEMP 36.6; O2SAT 100
--- NOTE | 2023-10-08 12:31 | HO.PM.IMPN ---
Subjective Subjective Date of Service: 10/08/23 Interval History: Good pain control, no new complaints, no acute issues overnight. Being followed for bilateral foot wounds and infection. Review of Systems All other system reviewed and negative. Physical Exam Vital Signs: Vital Signs: Last Vital Signs Temp 98 F 10/08/23 07:02 Pulse 70 10/08/23 07:02 Resp 16 10/08/23 07:02 BP 129/78 10/08/23 07:02 Pulse Ox 100 10/08/23 07:02 O2 Del Method Room Air 10/08/23 07:02 O2 Flow Rate 98 10/06/23 07:11 BMI result Body Mass Index 25.8 Const: Other: Gen: Awake alert resting comfortably, in no acute distress HEENT: sclera anicteric, moist mucus membranes Neck: supple Lungs: clear to auscultation bilaterally Heart: regular rate and rhythm, no murmurs Abd: soft, non-tender, non-distended Ext: L foot extensive wound + plantar ulcer over 2nd MT head, R foot s/p great toe amputation with necrotic wound base (see photos admission note) Neuro: alert and oriented x3, no focal findings. Psych: hostile behavior Objective Data Active Medications Acetaminophen (Acetaminophen 325 Mg Tablet) 650 mg PO Q6H PRN PRN Reason: Pain, Mild (Pain Scale 1-3) Last Admin: 10/08/23 05:53 Dose: 650 mg Documented By: GERARDO Ascorbic Acid (Ascorbic Acid 500 Mg Tablet) 500 mg PO DAILY [facility] Last Admin: 10/08/23 08:08 Dose: 500 mg Documented By: DOBROB Benzonatate (Benzonatate 100 Mg Capsule) 100 mg PO TID PRN PRN Reason: Cough Collagenase (Collagenase Clostridium Hist. 30 Gm Tube) 1 appl TOPICAL DAILY [facility]; Protocol Last Admin: 10/07/23 13:40 Dose: 1 appl Documented By: JESSE Dextrose (Dextrose 50 % 25 Gm/50 Ml Syringe) 25 gm IVPUSH Q15M PRN; Protocol PRN Reason: per Hypoglycemia Standing Ord. Docusate Sodium (Docusate Sodium 100 Mg Capsule) 100 mg PO DAILY PRN PRN Reason: Constipation Enoxaparin Sodium (Enoxaparin Sodium 40 Mg/0.4 Ml Syringe) 40 mg SUBCUT Q24H [facility] Last Admin: 10/07/23 18:02 Dose: Not Given Documented By: JESSE Non-Admin Reason: Patient Refused Gabapentin (Gabapentin 100 Mg Capsule) 200 mg PO TID [facility] Last Admin: 10/08/23 08:08 Dose: 200 mg Documented By: NEVILLE Glucose (Glucose Gel 15 Gm Gel..Gram.) 15 gm PO Q15M PRN; Protocol PRN Reason: per Hypoglycemia Standing Ord. Daptomycin 500 mg/ Sodium (Chloride) 60 mls @ 100.793 mls/hr IV Q24H [facility] Last Infusion: 10/07/23 14:06 Dose: Infused Documented By: JESSE Insulin Human Lispro (Insulin Lispro 100 Unit/Ml 3 Ml Vial) 0 unit SUBCUT QIDACHS [facility]; Protocol Last Admin: 10/08/23 11:33 Dose: Not Given Documented By: NEVILLE Non-Admin Reason: Patient Refused Melatonin (Melatonin 3 Mg Tablet) 6 mg PO BEDTIME PRN PRN Reason: Insomnia Last Admin: 10/06/23 22:10 Dose: 6 mg Documented By: HEATHER Ondansetron HCl (Ondansetron Hcl 4 Mg/2 Ml Vial) 4 mg IVPUSH Q8H PRN PRN Reason: Nausea and Vomiting Sodium Chloride (0.9 % Sodium Chloride Flush 3 Ml Syringe) 3 [facility] Last Admin: 10/08/23 08:13 Dose: 3 ml Documented By: NEVILLE Tramadol HCl (Tramadol Hcl 50 Mg Tablet) 50 mg PO Q8H PRN PRN Reason: Pain, Moderate(Pain Scale 4-6) Last Admin: 10/08/23 05:52 Dose: 50 mg Documented By: GERARDO Vitamin D (Cholecalciferol (Vitamin D3) 25 Mcg Tablet) 50 mcg PO DAILY [facility] Last Admin: 10/08/23 08:08 Dose: 50 mcg Documented By: NEVILLE Labs 10/04/23 14:35 10/06/23 06:00 Labs: Laboratory Results - last 24 hr 10/07/23 10/07/23 10/08/23 17:07 21:02 07:02 POC Glucose 169 H 103 192 H 10/08/23 11:08 POC Glucose 156 H Assessment and Plan (1) Acute osteomyelitis of left foot: Status: Acute Plan 48yo M with DM2, hx osteomyelitis with multiple toe amputations and hx MRSA + Group C streptococcal bacteremia, HTN, PTSD, mood disorder sent in on section 12 for delusions/refusing wound care + VNA services admitted for osteomyelitis R foot osteomyelitis continue wound care, MRI right foot showed osteomyelitis of 5th metatarsal base with overlying wound in abscess, osteomyelitis this of 3rd metatarsal, probable septic tenosynovitis of the tibialis anterior tendon Case discussed with ID she recommend IV daptomycin started on 10/06/23, s/p IV vancomycin and cefepime x 2 days, will monitor CPK, creatinine and CBC Q weekly while on dapto General surgery following closely for wound care. Blood cultures x2 negative Duplex scan lower extremity artery on Rt. showed severe peripheral artery disease, occlusion of the mid and distal SFA with reconstitution of the popliteal artery via collaterals. Continue wet to dry dressing right foot, and Santyl on left foot open area daily as per surgery Continue Tylenol and Ultram for pain Vascular surgery consult for peripheral artery real disease paranoia/delusional behavior seen by Psychiatry they do not feel patient need inpatient psychiatric level of care or involuntary psychiatric treatment under Section 12 b, patient is noted to have capacity to make medical decisions DM2 - stable blood sugars, MTF + Trulicity on hold, will continue correction-dose lispro and resume low-dose glipizide peripheral neuropathy continue gabapentin VTE ppx - LMWH In my clinical judgment, the patient requires continued inpatient hospitalization for the following reasons: wound management, IV ABX Total time managing care of this patient today: 35 minutes. Quality Stroke Does the patient have a stroke diagnosis?: No VTE Prior VTE?: No VTE Risk Level:: Medical - moderate - high VTE Device Contraindication: Treatment Not Indicated VTE Drug Contraindication: N/A - Med Ordered
--- NOTE | 2023-10-08 13:04 | MHC.CM.PN ---
Addendum entered by Margarita Haas 10/08/23 13:10: INFORMATION RELAYED TO PT Addendum entered by Margarita Haas 10/08/23 13:08: CM HAS CONFIRMED [facility] PROVIDERS DO NOT TAKE PTS INSURANCE PTS PCP OFFICE WAS ALSO CONTACTED, THEY DO STILL HAVE PT LISTED A CLIENT, HOWEVER THEY DO NOT TAKE HIS INSURANCE THEY SUGGEST PT CALL [facility] AND TELL THEM HE WANTS TO STAY WITH THAT OFFICE AND CHANGE COVERAGE TO ONE THEY TAKE Original Note: CM AND EXPERIENCE OFFICER MET WITH PT WHO REPORTS HE WAS SEEING [facility] FOR PRIMARY CARE BUT THEN HE RECEIVED A LETTER SAYING THE PROVIDER IS NO LONGER TAKING HIS INSURANCE . PT REPORTS HE WOULD MUCH RATHER HAVE A PCP HERE BUT DOES NOT KNOW IF THEY TAKE HIS INSURANCE EITHER. PT REPORTS [facility] HAS BEEN WRITING HIS VNA ORDERS. PER DISCUSSION, CM WILL DETERMINE OF PROVIDERS AT [facility] TAKE PTS INSURANCE HE REPORTS IF NO ONE DOES, HE WILL CHANGE HIS INSURANCE ONCE ENROLLMENT OPENS PT REPORTS HE HOPES TO DC HOME TODAY ONCE HE SEES THE GENERAL SURGEON
--- NOTE | 2023-10-08 14:16 | PM.CNGS ---
History of Present Illness Consult details Consult date: 10/08/23 Narrative: Very complex 48-year-old gentleman presents for evaluation regarding nonhealing ulcers. Has a prior history of diabetes MRSA and posttraumatic stress disorder. Been seen by Dr. Grace and had undergone amputations at [facility]. He is developed subsequent nonhealing ulcers. He was not happy with her overall care. He now presents to us for vascular evaluation. At the time of my interview he was somewhat hostile but did respond to questions. Review of Systems Review of Systems: Yes all other systems are reviewed and are negative Constitutional: Constitutional: Reports no additional constitutional complaints ENT: Reports Normal hearing present Cardiovascular: Cardiovascular: Denies chest pain, Denies chest pain at rest, Denies chest pain with activity and Denies pedal edema Respiratory: Respiratory: Denies cough Gastrointestinal: Gastrointestinal: Denies abdominal pain Musculoskeletal: Musculoskeletal: Denies abnormal gait, Denies muscle cramps and Denies radiating pain into limb Integumentary/Breasts: Skin/Breast: Denies skin ulcer and Denies wounds Neurologic: Reports Normal hearing present and Denies abnormal gait Psychiatric: Psychiatric: Reports no additional psychiatric complaints PMFSH Past Medical History Medical History Nausea and vomiting Marijuana smoker MRSA (methicillin resistant Staphylococcus aureus) GERD (gastroesophageal reflux disease) Bacteremia due to Streptococcus Posttraumatic stress disorder Staphylococcus aureus bacteremia 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 Bacterial infection due to Streptococcus, group C Acidosis, lactic Cellulitis Right foot infection Anxiety Diabetes type 2, controlled Family History Family history: reviewed and not pertinent Surgical History Surgical History History of amputation (12/11/22) History of partial amputation of toe (10/11/22) History of incision and drainage History of laparoscopic cholecystectomy Social History Social History Household Members: None Housing: Apartment Housing Other:: refused to answer Do you presently have visiting nurse or other home services: Yes Unable to assess alcohol history related to: Refusing to respond Alcohol intake: current Alcohol intake frequency: holidays/special occasions only Alcohol type: beer Comment: refuses alarms, camera. Education provided about safety Patient Tobacco Use Status: Refuse Tobacco use screen Tobacco use type: Cigarette Cigarette Packs Per Day: 1 Cigarettes Per Day: 10 Years Smoked: 36 years Second Hand Smoke Exposure: No Substance Use Type: Marijuana service: No Current occupational status: disabled Meds Allergies Allergy/AdvReac Type Severity Reaction Status Date / Time amoxicillin [AMOXICILLIN] Allergy Severe ANAPHYLAXIS Verified 01/19/23 19:10 oxycodone [From Tylox] Allergy Intermediate Itching Verified 01/19/23 19:10 hydrocodone [HYDROCODONE] Allergy Unknown UNKNOWN Verified 01/19/23 19:10 Active Medications: Current Medications Acetaminophen (Acetaminophen 325 Mg Tablet) 650 mg PO Q6H PRN PRN Reason: Pain, Mild (Pain Scale 1-3) Last Admin: 10/08/23 13:02 Dose: 650 mg Ascorbic Acid (Ascorbic Acid 500 Mg Tablet) 500 mg PO DAILY [facility] Last Admin: 10/08/23 08:08 Dose: 500 mg Benzonatate (Benzonatate 100 Mg Capsule) 100 mg PO TID PRN PRN Reason: Cough Collagenase (Collagenase Clostridium Hist. 30 Gm Tube) 1 appl TOPICAL DAILY [facility]; Protocol Last Admin: 10/07/23 13:40 Dose: 1 appl Dextrose (Dextrose 50 % 25 Gm/50 Ml Syringe) 25 gm IVPUSH Q15M PRN; Protocol PRN Reason: per Hypoglycemia Standing Ord. Docusate Sodium (Docusate Sodium 100 Mg Capsule) 100 mg PO DAILY PRN PRN Reason: Constipation Enoxaparin Sodium (Enoxaparin Sodium 40 Mg/0.4 Ml Syringe) 40 mg SUBCUT Q24H [facility] Last Admin: 10/07/23 18:02 Dose: Not Given Gabapentin (Gabapentin 100 Mg Capsule) 200 mg PO TID [facility] Last Admin: 10/08/23 08:08 Dose: 200 mg Glipizide (Glipizide 5 Mg Tablet) 2.5 mg PO DAILY [facility] Glucose (Glucose Gel 15 Gm Gel..Gram.) 15 gm PO Q15M PRN; Protocol PRN Reason: per Hypoglycemia Standing Ord. Daptomycin 500 mg/ Sodium (Chloride) 60 mls @ 100.793 mls/hr IV Q24H [facility] Last Infusion: 10/07/23 14:06 Dose: Infused Insulin Human Lispro (Insulin Lispro 100 Unit/Ml 3 Ml Vial) 0 unit SUBCUT QIDACHS [facility]; Protocol Last Admin: 10/08/23 11:33 Dose: Not Given Melatonin (Melatonin 3 Mg Tablet) 6 mg PO BEDTIME PRN PRN Reason: Insomnia Last Admin: 10/06/23 22:10 Dose: 6 mg Morphine Sulfate (Morphine Sulfate Immed Release 15 Mg Tablet) 15 mg PO Q6H PRN PRN Reason: Pain, Severe (Pain Scale 7-10) Ondansetron HCl (Ondansetron Hcl 4 Mg/2 Ml Vial) 4 mg IVPUSH Q8H PRN PRN Reason: Nausea and Vomiting Sodium Chloride (0.9 % Sodium Chloride Flush 3 Ml Syringe) 3 ml IVFLUSH QSHIFT [facility] Last Admin: 10/08/23 08:13 Dose: 3 ml Vitamin D (Cholecalciferol (Vitamin D3) 25 Mcg Tablet) 50 mcg PO DAILY [facility] Last Admin: 10/08/23 08:08 Dose: 50 mcg Home Medications Medication Instructions Recorded Confirmed Last Taken Type cholecalciferol (vitamin D3) 50 50 mcg PO DAILY 11/04/21 10/04/23 10/03/23 History mcg (2,000 unit) capsule gabapentin 100 mg capsule 200 mg PO TID 10/06/22 10/04/23 01/19/23 History metformin 500 mg tablet 500 mg PO BID 10/06/22 10/04/23 10/03/23 History ascorbic acid (vitamin C) 500 mg 500 mg PO DAILY 11/29/22 10/04/23 10/03/23 History tablet dulaglutide 1.5 mg/0.5 mL 1.5 mg subcut FR 11/29/22 10/04/23 10/03/23 History subcutaneous pen injector (Trulicity) glipizide 5 mg tablet 10 mg PO DAILY 11/29/22 10/04/23 10/03/23 History doxycycline monohydrate 100 mg 100 mg PO BID 10/04/23 10/04/23 10/04/23 History capsule Physical Exam Vital Signs: Vital Signs: Last Vital Signs Temp 98 F 10/08/23 07:02 Pulse 70 10/08/23 07:02 Resp 16 10/08/23 07:02 BP 129/78 10/08/23 07:02 Pulse Ox 100 10/08/23 07:02 O2 Del Method Room Air 10/08/23 07:02 O2 Flow Rate 98 10/06/23 07:11 BMI result Body Mass Index 25.8 Const: General: cooperative, healthy appearing and comfortable Orientation/consciousness: oriented to person, oriented to place and oriented to time HEENT: Head: Yes normal to inspection Neck: Neck: Yes normal visual inspection Carotids: no bruits Chest: Chest palpation & inspection: normal inspection of the chest Resp: Effort & Inspection: normal respiratory effort and able to speak in complete sentences Auscultation: clear to auscultation bilaterally, no crackles, no rales, no rhonchi and no wheezes Cardio: Rate: regular rate Rhythm: regular rhythm Heart sounds: S1 normal heart sound present and S2 normal heart sound present Bruits: no carotid bruits Peripheral pulses: Peripheral pulses 2+ throughout GI: Inspection: Yes normal to inspection Skin: Other: Bilateral foot ulcers Wounds: no wounds Hair: normal Neuro: General: oriented to person, oriented to place and oriented to time Cranial nerves: Yes CN's II-XII intact bilaterally and Yes Normal hearing present Cognition (Neuro): normal cognition Motor exam (neuro): 5/5 motor strength present throughout Extrem: Other: venous exam: No significant superficial varicosities or spider telangiectasias, minimal edema General: No clubbing, No cyanosis and No edema Psych: Appearance: grossly normal Mental Status: mental status grossly normal Speech and movement: Normal speech and movement present Results Labs 10/04/23 14:35 10/06/23 06:00 Labs: Abnormal lab results 10/07/23 10/08/23 10/08/23 Range/Units 17:07 07:02 11:08 POC Glucose 169 H 192 H 156 H (60-115) mg/dL All other labs normal. Assessment and Plan (1) PAD (peripheral artery disease): Status: Acute Plan In short patient has an element of PA D. this was evident on noninvasive testing. The patient request that he be discharged so he could take care of his Cats. He can follow up with the [facility] regarding his wounds. Would recommend follow-up with his original bead preparer as they did know the original surgery performed. Can see us as an outpatient if he elects to continue care here regarding his peripheral vascular disease. The findings of the ultrasound as a potential procedures were discussed in detail with the patient. Once again he did choose to hold off on this and do this as an outpatient. Thank you for allowing us to assist in his care. If there are any questions or concerns please do not hesitate to contact us. Procedures Date of Service Date of Service: 10/08/23
[2023-10-08 15:33] VITALS: BP 109/57; PULSE 73; RESP 18; TEMP 36.5; O2SAT 99
[2023-10-08 16:16] LABS: Glucose, Whole Blood 150 mg/dL (60-115)
--- NOTE | 2023-10-08 16:24 | PC.NURSE ---
Dressing changed per MD's order, thick layer of Santyl applied to left plantar foot and wrapped with gauze roll, open wound on right foot packed with wet gauze,(used NS) dry parts of the wound painted with betadine, all covered with dry gauze and wrapped with gauze roll. Patient tolerated procedure well.
[2023-10-08 19:48] VITALS: BP 113/63; PULSE 76; RESP 18; TEMP 36.6; O2SAT 100
[2023-10-08 20:38] LABS: Glucose, Whole Blood 214 mg/dL (60-115)
[2023-10-08] MEDS: Insulin Lispro 100 UNIT/ML 3 ML VIAL SUBCUT (20:49)
[2023-10-08] MEDS: Gabapentin 100 MG CAPSULE 200 MG PO (20:51)
[2023-10-08] MEDS: 0.9 % Sodium Chloride Flush 3 ML SYRINGE IVFLUSH (20:52)
[2023-10-08] MEDS: Acetaminophen 325 MG TABLET 650 MG PO (20:53)
[2023-10-09 04:00] VITALS: BP 113/62; PULSE 68; RESP 16; TEMP 36.6; O2SAT 98
[2023-10-09 07:40] LABS: Glucose, Whole Blood 189 mg/dL (60-115)
[2023-10-09] MEDS: HYDROmorphone HCl 2 MG TABLET 1 MG PO ×2 (08:00→23:51)
--- NOTE | 2023-10-09 10:35 | P.PICC_ITS ---
PICC Line Insertion NPICC Diagnosis: Osteomyelitis Indication: Nursing Home ABT Pertinent Labs: Reviewed Technique: Following informed consent including risks, benefits and alternatives and using sterile technique including cap and mask, sterile gown, glove and drape, the right arm was prepped and draped in the usual sterile fashion of full barrier technique with CHG. Following completion of [place] Protocol the skin and soft tissues were anesthetized with 1% Lidocaine plain. Using ultrasound guidance, right basilic vein access was attempted by Kevon Qiu RN, right basilic viein was accessed by this RN. Over an 0.018 wire through peel-away sheath, a 4fr single lumen PASV PICC line was positioned. Catheter length is 42 internal length, 0cm external length, for a total trimmed length of 42cm. The procedure was performed in [id number]. Tip verification was performed by Payton Jones with Kay 3CG. Tip located in SVC. Ultrasound was used to document vein patency and for needle entry. A formal ultrasound picture and cardiac rhythm strip was recorded. Vascular Fairground Operator has released the line for use and it is currently dressed with a StatLock, Tegaderm, and CHG disc. Verification has been performed for blood return and line patency. Arm Circumference: 27cm Equipment: [employer] Venture PowerPICC SOLO catheter Catheter Type: 4FR single lumen PASV Lot #: [id number]
[2023-10-09] MEDS: Cholecalciferol (Vitamin D3) 25 MCG TABLET 50 MCG PO (11:00)
[2023-10-09] MEDS: glipiZIDE 5 MG TABLET 2.5 MG PO (11:00)
[2023-10-09] MEDS: Acetaminophen 325 MG TABLET 650 MG PO ×2 (11:00→17:04)
[2023-10-09] MEDS: Ascorbic Acid 500 MG TABLET PO (11:00)
[2023-10-09] MEDS: Gabapentin 100 MG CAPSULE 200 MG PO ×3 (11:00→19:52)
[2023-10-09 11:01] LABS: Glucose, Whole Blood 129 mg/dL (60-115)
--- NOTE | 2023-10-09 13:10 | P.DS_ITS ---
DS: Providers Provider Date of Service: 10/09/23 Date of admission: 10/04/23 17:15 Primary care physician: STEPHANIE Marti Consults: 10/04/23 17:21 Consult to General Surgery Routine Consulting Provider: [facility] General Surgeons Reason for consultation: Likely right foot osteomyelitis Consult to Infectious Diseases Routine Consulting Provider: [facility] Infectious Disease Reason for consultation: Likely right foot osteomyelitis Consult to Psychiatry Routine Consulting Provider: Psych Covering Reason for consultation: On a section 12 for delusions and refusing VNA care 10/06/23 13:00 Consult to Infectious Diseases Routine Consulting Provider: Cathie Guo Reason for consultation: osteo Has provider been notified: Yes 10/08/23 09:19 Consult to Vascular Surgery Routine Consulting Provider: [facility] Vascular Services Reason for consultation: poor circulation right foot Has provider been notified: No DS: Diagnosis Discharge Diagnosis (1) PAD (peripheral artery disease): Status: Acute DS: Summary Hospital Course Hospital Course: History of presenting illness: date of Service: 10/04/23 Attending physician on admission: Florence Castanon Chief Complaint: Worsening right foot infection Pt is a 48-year-old male with a PMH significant for?HTN, [id number] diabetes type 2, GERD, hx of osteomyelitis with multiple toe amputations, hx of MRSA and group C Streptococcus bacteremia, PTSD, and anxiety/depression treated by Fito Roque who presents to the ED on a section 12 for evaluation of infected right foot. Patient with a chronic right foot wound managed by our [facility] and Podiatry, currently on doxycycline and levofloxacin. Fito Roque sent to the ED on a section 12 for delusions and refusing VNA and Wound Care. According to the section 12, he has been refusing VNA care due to the [employer] telling him the VNA nurse has feelings for him and that he can not have a relationship with her. Pt himself strenuously denies these allegations and says he has been compliant with all medications and treatments, including planning on seeing Wound Care tomorrow for an appointment. However, pt concedes he has not been using VNA recently because he does not like them and they don't do a good job . At time of interview pt is agitated, hostile, combative, and verbally abusive to his previous providers. Denies any systemic symptoms: no fever, chills, N/V. Has no acute medical complaints other than some pain in right foot with standing. Also have chronic wound on left foot but refused to allow it to be examined. In the ED pt was tachycardic up to 113, otherwise vitals WNL. Labs were significant for leukocytosis of 13.4, ESR 59, CRP 16.96, ALT 51, and procalcitonin mildly elevated at 0.04. Stable H&H. Electrolytes WNL. Lactic acid WNL at 1.8. Ethyl alcohol undetectable. X-ray of right foot showed likely destructive changes of osteomyelitis. Pt was treated with IVF, vancomycin, and cefepime. Pt will be admitted to the hospital for treatment and further evaluation of worsening right foot infection concerning for osteomyelitis. Hospital course : 48yo M with DM2, hx osteomyelitis with multiple toe amputations and hx MRSA + Group C streptococcal bacteremia, HTN, PTSD, mood disorder sent in on section 12 for delusions/refusing wound care + VNA services admitted for osteomyelitis Patient admitted to medical floor with a diagnosis of R foot acute osteomyelitis, and chronic left foot open wound, treated with IV vancomycin and cefepime, blood cultures x2 came back negative, MRI right foot showed osteomyelitis of 5th metatarsal base with overlying wound and abscess, osteomyelitis of 3rd metatarsal, probable septic tenosynovitis of the tibialis anterior tendon, patient seen by infectious disease she recommend IV daptomycin for 6 weeks started on 10/06/23, end date November 17,l monitor CPK, creatinine and CBC Q weekly while on daptomycin, patient followed closely by General surgery they recommend daily dressing wet to dry dressing right foot, and Santyl on left foot open area , Duplex scan lower extremity artery on Rt. showed severe peripheral artery disease, occlusion of the mid and distal SFA with reconstitut ion of the popliteal artery via collaterals, therefore vascular surgery consult was obtained patient seen by Dr. Waggoner he recommend outpatient follow-up in 2-3 weeks, patient is now being discharged home with recommendations to follow-up at wound care clinic for dressing change 3 times per week and will have IV daptomycin delivered by [employer]. Patient is instructed to arrange for PCP and close follow-up.. In regard to mood disorder patient seen by Psychiatry and they do not feel patient at present has paranoia or delusions, DM2 - stable blood sugars, recommend to continue metformin and Trulicity , dose of glipizide reduced to 5 mg . peripheral neuropathy continue gabapentin Time Attestation Discharge coordination time: Greater than 30 minutes Quality: Safe Use of Opioids Does Pt have an Active Cancer Diagnosis on the Problem List?: No Quality: Stroke Does the patient have a stroke diagnosis?: No Physical Exam Vital Signs: Vital Signs: Last Vital Signs Temp 97.9 F 10/09/23 04:00 Pulse 68 10/09/23 04:00 Resp 16 10/09/23 04:00 BP 113/62 10/09/23 04:00 Pulse Ox 98 10/09/23 04:00 O2 Del Method Room Air 10/09/23 04:00 O2 Flow Rate 98 10/06/23 07:11 BMI result Body Mass Index 25.8 Const: Other: Gen: Awake alert , in no acute distress HEENT: sclera anicteric, moist mucus membranes Neck: supple Lungs: clear to auscultation bilaterally Heart: regular rate and rhythm, no murmurs Abd: soft, non-tender, non-distended Ext: L foot plantar ulcer over 2nd MT head, R foot s/p great toe amputation with necrotic wound base. Neuro: alert and oriented x3, no focal findings. DS: Data Data Completed and Pending Completed studies during hospitalization [Text1]: Procedures Detachment at Left 5th Toe, Complete, Open Approach (12/08/22) Insertion of Infusion Device into Superior Vena Cava, Percutaneous Approach (01/19/23) Ultrasonography of Superior Vena Cava, Guidance (01/19/23) Labs on day of discharge: Laboratory Results - last 24 hr 10/08/23 10/08/23 10/09/23 16:11 20:34 07: POC Glucose 150 H 214 H 189 H 10/09/23 10:57 POC Glucose 129 H Preliminary micro results at discharge 10/04/23 14:50 Blood Culture - Preliminary Blood - Venous No growth after 48 hours. 10/04/23 14:35 Blood Culture - Preliminary Blood - Venous No growth after 48 hours. Discharge Plan Discharge Anticipated Discharge Date/Time: 10/10/23 13:54 Patient Disposition: Home Health Service Discharge Diagnosis: Right foot osteomyelitis Bilateral foot wounds Diabetes mellitus Referrals: [facility] [Other] - 1 Week (They will provide the Medication, IV site dressing changes, and infusion education.) Suzanne De Paz FNP [Primary Care Provider] - 1 Week Discharge Medications: Continued cholecalciferol (vitamin D3) 50 mcg (2,000 unit) Capsule 50 mcg PO DAILY metformin 500 mg Tablet 500 mg PO BID gabapentin 100 mg Capsule 200 mg PO TID Trulicity 1.5 mg/0.5 mL Pen Injector 1.5 mg SUBCUT FR ascorbic acid (vitamin C) 500 mg Tablet 500 mg PO DAILY Changed glipizide 5 mg Tablet 5 mg PO DAILY Qty: 30 0RF Discontinued doxycycline monohydrate 100 mg capsule 100 mg PO BID Discharge Orders: Discharge Order (Routine); Ordered 10/10/23 Ordered By: Arron Marin Diet: Diabetic diet Activity on Discharge: As tolerated Stand Alone Forms: Patient Portal Discharge page Care Plan Goals: rt foot cont. with wet to dry dressings daily for now. santyl on the left foot open area daily. Follow-up with Wound Care Clinic 3 times per week for dressing change You are being discharged on IV daptomycin 500 mg daily end date November 17 Check Q weekly BMP CBC and CPK while on daptomycin Health Concerns: Diabetes/bilateral foot pain Plan of Treatment: Outpatient follow-up with Dr. Waggoner from vascular surgery Outpatient follow-up at wound clinic call for appointment for wound care and dressing change Assessment: As above Discharge Date/Time: 10/10/23 17:11
--- NOTE | 2023-10-09 13:15 | HO.PM.IMPN ---
Subjective Subjective Date of Service: 10/09/23 Interval History: Wishes to be discharged home to take care of cats,, has no VNA services due to insurance issues is unable to do his own dressings, previously was getting dressing change wound clinic twice weekly, denies fever chills, no foot pain. Review of Systems All other system reviewed and negative Physical Exam Vital Signs: Vital Signs: Last Vital Signs Temp 97.9 F 10/09/23 04:00 Pulse 68 10/09/23 04:00 Resp 16 10/09/23 04:00 BP 113/62 10/09/23 04:00 Pulse Ox 98 10/09/23 04:00 O2 Del Method Room Air 10/09/23 04:00 O2 Flow Rate 98 10/06/23 07:11 BMI result Body Mass Index 25.8 Const: Other: Gen: Awake alert , in no acute distress HEENT: sclera anicteric, moist mucus membranes Neck: supple Lungs: clear to auscultation bilaterally Heart: regular rate and rhythm, no murmurs Abd: soft, non-tender, non-distended Ext: L foot plantar ulcer over 2nd MT head, R foot s/p great toe amputation with necrotic wound base (see photos admission note) Neuro: alert and oriented x3, no focal findings. Psych: hostile behavior Objective Data Active Medications Acetaminophen (Acetaminophen 325 Mg Tablet) 650 mg PO Q6H PRN PRN Reason: Pain, Mild (Pain Scale 1-3) Last Admin: 10/09/23 11:00 Dose: 650 mg Documented By: COTEMA Ascorbic Acid (Ascorbic Acid 500 Mg Tablet) 500 mg PO DAILY [facility] Last Admin: 10/09/23 11:00 Dose: 500 mg Documented By: COTEMA Benzonatate (Benzonatate 100 Mg Capsule) 100 mg PO TID PRN PRN Reason: Cough Collagenase (Collagenase Clostridium Hist. 30 Gm Tube) 1 appl TOPICAL DAILY [facility]; Protocol Last Admin: 10/09/23 10:52 Dose: Not Given Documented By: COTEMA Non-Admin Reason: Patient Refused Dextrose (Dextrose 50 % 25 Gm/50 Ml Syringe) 25 gm IVPUSH Q15M PRN; Protocol PRN Reason: per Hypoglycemia Standing Ord. Docusate Sodium (Docusate Sodium 100 Mg Capsule) 100 mg PO DAILY PRN PRN Reason: Constipation Enoxaparin Sodium (Enoxaparin Sodium 40 Mg/0.4 Ml Syringe) 40 mg SUBCUT Q24H [facility] Last Admin: 10/08/23 17:27 Dose: Not Given Documented By: NEVILLE Non-Admin Reason: Patient Refused Gabapentin (Gabapentin 100 Mg Capsule) 200 mg PO TID [facility] Last Admin: 10/09/23 11:00 Dose: 200 mg Documented By: PANDA Glipizide (Glipizide 5 Mg Tablet) 2.5 mg PO DAILY [facility] Last Admin: 10/09/23 11:00 Dose: 2.5 mg Documented By: PANDA Glucose (Glucose Gel 15 Gm Gel..Gram.) 15 gm PO Q15M PRN; Protocol PRN Reason: per Hypoglycemia Standing Ord. Hydromorphone HCl (Hydromorphone Hcl 2 Mg Tablet) 1 mg PO Q8H PRN PRN Reason: Pain, Severe (Pain Scale 7-10) Last Admin: 10/09/23 08:00 Dose: 1 mg Documented By: HITESH Daptomycin 500 mg/ Sodium (Chloride) 60 mls @ 100.793 mls/hr IV Q24H [facility] Last Infusion: 10/08/23 16:14 Dose: Infused Documented By: NEVILLE Insulin Human Lispro (Insulin Lispro 100 Unit/Ml 3 Ml Vial) 0 unit SUBCUT QIDACHS [facility]; Protocol Last Admin: 10/09/23 11:01 Dose: Not Given Documented By: PANDA Non-Admin Reason: No Insulin Coverage Melatonin (Melatonin 3 Mg Tablet) 6 mg PO BEDTIME PRN PRN Reason: Insomnia Last Admin: 10/06/23 22:10 Dose: 6 mg Documented By: HEATHER Ondansetron HCl (Ondansetron Hcl 4 Mg/2 Ml Vial) 4 mg IVPUSH Q8H PRN PRN Reason: Nausea and Vomiting Sodium Chloride (0.9 % Sodium Chloride Flush 3 Ml Syringe) 3 ml IVFLUSH QSHIFT [facility] Last Admin: 10/09/23 09:55 Dose: Not Given Documented By: PANDA Non-Admin Reason: Not In Room Vitamin D (Cholecalciferol (Vitamin D3) 25 Mcg Tablet) 50 mcg PO DAILY [facility] Last Admin: 10/09/23 11:00 Dose: 50 mcg Documented By: PANDA Labs 10/04/23 14:35 10/06/23 06:00 Labs: Laboratory Results - last 24 hr 10/08/23 10/08/23 10/09/23 16:11 20:34 07:23 POC Glucose 150 H 214 H 189 H 10/09/23 10:57 POC Glucose 129 H Assessment and Plan (1) Acute osteomyelitis of left foot: Status: Acute Plan 48yo M with DM2, hx osteomyelitis with multiple toe amputations and hx MRSA + Group C streptococcal bacteremia, HTN, PTSD, mood disorder sent in on section 12 for delusions/refusing wound care + VNA services admitted for osteomyelitis R foot acute osteomyelitis /necrotic wound continue wound care, MRI right foot showed osteomyelitis of 5th metatarsal base with overlying wound in abscess, osteomyelitis this of 3rd metatarsal, probable septic tenosynovitis of the tibialis anterior tendon Case discussed with ID she recommend IV daptomycin started on 10/06/23, s/p IV vancomycin and cefepime x 2 days, will monitor CPK, creatinine and CBC Q weekly while on dapto General surgery following closely for wound care, they recommend daily dressing changes. Blood cultures x2 negative Duplex scan lower extremity artery on Rt. showed severe peripheral artery disease, occlusion of the mid and distal SFA with reconstitution of the popliteal artery via collaterals. Continue wet to dry dressing right foot, and Santyl on left foot open area daily as per surgery Continue Tylenol and Dilaudid for pain Seen by Dr. Waggoner he recommend outpatient follow-up Patient has no VNA services as outpatient due to insurance issues and lack of primary care physician, patient unable to do his own dressings Will arrange for dressing change at wound clinic Status post PICC line placement today/arrange for safe discharge with home infusion company paranoia/delusional behavior seen by Psychiatry they do not feel patient need inpatient psychiatric level of care or involuntary psychiatric treatment under Section 12 b, patient is noted to have capacity to make medical decisions DM2 - stable blood sugars, continue low-dose glipizide, recommend to resume Trulicity upon discharge , metformin on hold for possible further imaging studies and intervention peripheral neuropathy continue gabapentin VTE ppx - LMWH In my clinical judgment, the patient requires continued inpatient hospitalization for the following reasons: wound management, IV ABX Total time managing care of this patient today: 35 minutes. Quality Stroke Does the patient have a stroke diagnosis?: No VTE Prior VTE?: No VTE Risk Level:: Medical - moderate - high VTE Device Contraindication: Treatment Not Indicated VTE Drug Contraindication: N/A - Med Ordered
[2023-10-09] MEDS: DAPTOmycin 500 MG in 0.9 % Sodium Chloride 50 ML 100.79 MG IV (14:34)
[2023-10-09] MEDS: 0.9 % Sodium Chloride Flush 3 ML SYRINGE IVFLUSH ×2 (14:34→19:53)
[2023-10-09 14:54] VITALS: BP 128/66; PULSE 77; RESP 18; TEMP 36.6; O2SAT 99
[2023-10-09 15:29] LABS: Glucose, Whole Blood 178 mg/dL (60-115)
--- NOTE | 2023-10-09 16:07 | MHC.CM.PN ---
EVA MET WITH PT TODAY, HE IS AWARE THERE ARE NO ACCEPTING VNAS HE IS ALSO AWARE HE WILL NEED IV ABX AT DC, [facility] WILL PROVIDE THE NURSE FOR THE ABX ONLY A TEACH WAS DONE, THERE WERE NO CONCERNS ABOUT PT DOING MEDS AT HOME [facility] RN WILL BE HERE TOMORROW MORNING TO ADD LINE EXTENSION EVA SPOKE TO MARY AT [facility] SHE REPORTS SHE CAN SEE PT THREE TIMES PER WEEK FOR A COUPLE WEEKS BUT THIS IS NOT SUSTAINABLE REFERRALS FOR VNA WERE SENT OUT AGAIN ASKING IF THEY MAY HAVE OPENINGS IN THE COMING WEEKS RESPONSES PENDING PT WILL DC HOME TOMORROW WITH [facility] FOR IV ABX AND LABS HE WILL HAVE 3X/WEEK WOUND CARE VISITS INITIALLY AND WILL FOLLOW UP WITH DR PANDEY OP PT WILL NEED SHUTTLE TRANSPORT ARRANGED
[2023-10-09] MEDS: HYDROmorphone HCl 2 MG TABLET 0.5 MG PO (17:04)
[2023-10-09 18:53] VITALS: BP 110/68; PULSE 74; RESP 18; TEMP 36.2; O2SAT 98
[2023-10-09 19:46] LABS: Glucose, Whole Blood 201 mg/dL (60-115)
[2023-10-09] MEDS: Insulin Lispro 100 UNIT/ML 3 ML VIAL SUBCUT (19:52)
[2023-10-09] MEDS: LORazepam 0.5 MG TABLET 1.5 MG PO (22:50)
[2023-10-09] MEDS: LORazepam 0.5 MG TABLET PO (23:34)
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
[2023-10-10 06:28] LABS: Hematocrit 43.2 % (42.0-52.0); Hemoglobin 14.1 g/dl (14.0-18.0); Mean Corpuscular HGB Conc 32.6 g/dl (31.0-36.0); Mean Corpuscular Volume 82.8 fL (80.0-98.0); Mean Platelet Volume 8.6 fL (9.4-12.4); Platelet Count 459 X10*3/uL (160-400); Red Blood Count 5.22 X10*6/uL (4.60-5.80); Red Cell Distribution Width 14.6 % (11.0-16.0); White Blood Count 12.3 X10*3/uL (4.8-10.8)
[2023-10-10 06:31] LABS: Anion Gap 14 (12-20); Blood Urea Nitrogen 8 mg/dL (9-16); Calcium 9.2 mg/dL (8.4-10.2); Carbon Dioxide 24 mmol/L (22-29); Chloride 104 mmol/L (96-108); Creatinine Clr Calc Pharmacy 113.1; Estimated Glomerular Filt Rate > 60; Glucose Random 201 mg/dL (60-115); Potassium 4.4 mmol/L (3.3-5.1); Sodium 138 mmol/L (135-145)
[2023-10-10 07:18] VITALS: BP 116/66; PULSE 74; RESP 18; TEMP 36.6; O2SAT 95
[2023-10-10 07:23] LABS: Glucose, Whole Blood 155 mg/dL (60-115)
[2023-10-10] MEDS: Ascorbic Acid 500 MG TABLET PO (10:20)
[2023-10-10] MEDS: Gabapentin 100 MG CAPSULE 200 MG PO ×2 (10:20→14:11)
[2023-10-10] MEDS: Cholecalciferol (Vitamin D3) 25 MCG TABLET 50 MCG PO (10:20)
[2023-10-10] MEDS: glipiZIDE 5 MG TABLET PO (10:21)
[2023-10-10] MEDS: HYDROmorphone HCl 2 MG TABLET 1 MG PO ×2 (10:24→16:37)
[2023-10-10] MEDS: 0.9 % Sodium Chloride Flush 3 ML SYRINGE IVFLUSH (10:25)
--- NOTE | 2023-10-10 10:26 | HO.VASCPN ---
Subjective Subjective Date of Service: 10/10/23 Interval history: Extremely complex 48-year-old gentleman with multiple issues presents for follow-up regarding nonhealing lower extremity ulcers. He has had prior amputations performed at [facility]. Unfortunately his vascular status does not seem to be optimized. He is currently undergoing IV antibiotic therapy. He now presents to us for follow-up. Of note he is extremely upset about his overall situation. He has a lot of issues at home with his family and is extremely concerned about his cats. He was very tearful and upset during our entire conversation. The patient was seen in conjunction with the primary care team. Physical Exam Vital Signs: Vital Signs: Last Vital Signs Temp 97.8 F 10/10/23 07:18 Pulse 74 10/10/23 07:18 Resp 18 10/10/23 07:18 BP 116/66 10/10/23 07:18 Pulse Ox 95 10/10/23 07:18 O2 Del Method Room Air 10/10/23 07:18 O2 Flow Rate 98 10/06/23 07:11 BMI result Body Mass Index 25.8 Const: General: cooperative, healthy appearing and comfortable Orientation/consciousness: oriented to person, oriented to place and oriented to time HEENT: Head: Yes normal to inspection Neck: Neck: Yes normal visual inspection Carotids: no bruits Chest: Chest palpation & inspection: normal inspection of the chest Resp: Effort & Inspection: normal respiratory effort and able to speak in complete sentences Auscultation: clear to auscultation bilaterally, no crackles, no rales, no rhonchi and no wheezes Cardio: Rate: regular rate Rhythm: regular rhythm Heart sounds: S1 normal heart sound present and S2 normal heart sound present Bruits: no carotid bruits Peripheral pulses: Peripheral pulses 2+ throughout GI: Inspection: Yes normal to inspection Skin: Other: Bilateral lower extremity ulcers. Wounds: no wounds Hair: normal Neuro: General: oriented to person, oriented to place and oriented to time Cranial nerves: Yes CN's II-XII intact bilaterally and Yes Normal hearing present Cognition (Neuro): normal cognition Motor exam (neuro): 5/5 motor strength present throughout Extrem: Other: venous exam: No significant superficial varicosities or spider telangiectasias, minimal edema General: No clubbing, No cyanosis and No edema Psych: Appearance: grossly normal Mental Status: mental status grossly normal Speech and movement: Normal speech and movement present Progress Note: A&P Assessment and plan (1) PAD (peripheral artery disease): Status: Acute Assessment and Plan: It was extremely hard to focus and redirect this patient. He does have peripheral vascular disease but this is extremely chronic in nature. Would not recommend acute intervention. He will continue with antibiotic therapy and local wound care per the [facility]. I did outline the findings to the patient several times. I did discuss that he will require outpatient IV antibiotics. In addition he does need to establish care with a primary care team as well in order to help control his meds. And then we can assess his lower extremity arterial status. I am extremely concerned about his overall psych status. He is extremely confused and worried about his cats and his daughter. I do recommend a repeat evaluation by psych. We spent an extensive time discussing these issues with him and outlined what needs to occur several times to this patient. Stable from a peripheral vascular perspective for discharge. No acute intervention planned. Time Spent With Patient Time: Total time managing care of this patient today ____ minutes. Procedures Date of Service Date of Service: 10/10/23 Quality Stroke Does the patient have a stroke diagnosis?: No VTE Prior VTE?: No VTE Risk Level:: Medical - moderate - high VTE Device Contraindication: Treatment Not Indicated VTE Drug Contraindication: N/A - Med Ordered
[2023-10-10 11:19] LABS: Glucose, Whole Blood 189 mg/dL (60-115)
--- NOTE | 2023-10-10 13:37 | MHC.CM.PN ---
Addendum entered by Lyric Rey 10/10/23 15:00: Patient discharged with home services: [facility] Original Note: Patient discharged today with IV ABX and wound care. [facility] will provide Home infusion services including SN, supplies and medication. The teach is complete. Extension tubing applied by [facility] nurse today. They have received Flush orders + script. Wound care will be managed by [facility] wound clinic. They will see the patient 3x a week initially. The patient does not qualify for VNA r/t PCP does not accept pts insurance. A Consult has been sent to [facility] [employer]. A request to change the patient insurance to [employer] [place]. Once insurance is changed. He can make an appointment to be seen by his PCP. The PCP can then order VNA services. Once the VNA is arranged, the Wound clinic will decrease the frequency of his WC appointments. The patient has an appointment with the wound clinic Sunday 12:45. [facility] Shuttle is set up for 11:15am picker and packer. The patient will follow up with Dr Waggoner in 2 weeks. The Discharge has been reviewed with the patient. He agrees to the discharge plan.
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
[2023-10-10] MEDS: DAPTOmycin 500 MG in 0.9 % Sodium Chloride 50 ML 100.79 MG IV (14:11)
--- NOTE | 2023-10-10 14:39 | PM.PNGS ---
Subjective Subjective Date of Service: 10/10/23 Interval history: Feels ok today. Wants to leave. Physical Exam Vital Signs: Vital Signs: Last Vital Signs Temp 97.8 F 10/10/23 07:18 Pulse 74 10/10/23 07:18 Resp 18 10/10/23 07:18 BP 116/66 10/10/23 07:18 Pulse Ox 95 10/10/23 07:18 O2 Del Method Room Air 10/10/23 07:18 O2 Flow Rate 98 10/06/23 07:11 BMI result Body Mass Index 25.8 Const: General: comfortable, no acute distress and alert Orientation/consciousness: patient oriented x3 Resp: Effort & Inspection: normal respiratory effort Skin: General skin exam: no rashes or lesions noted Neuro: General: patient oriented x3 and moves all extremities Extrem: Other: left plantar area - open wound down to tendon, packed with saline gauze right foot- mummified changes at amputation site with open purulent wound at metatarsal area packed with saline soaked gauze and betadine applied to surrounding area Objective Data Active Medications Acetaminophen (Acetaminophen 325 Mg Tablet) 650 mg PO Q6H PRN PRN Reason: Pain, Mild (Pain Scale 1-3) Last Admin: 10/09/23 17:04 Dose: 650 mg Documented By: PANDA Ascorbic Acid (Ascorbic Acid 500 Mg Tablet) 500 mg PO DAILY [facility] Last Admin: 10/10/23 10:20 Dose: 500 mg Documented By: LUIS Benzonatate (Benzonatate 100 Mg Capsule) 100 mg PO TID PRN PRN Reason: Cough Collagenase (Collagenase Clostridium Hist. 30 Gm Tube) 1 appl TOPICAL DAILY [facility]; Protocol Last Admin: 10/10/23 13:06 Dose: Not Given Documented By: LUIS Non-Admin Reason: Patient Refused Dextrose (Dextrose 50 % 25 Gm/50 Ml Syringe) 25 gm IVPUSH Q15M PRN; Protocol PRN Reason: per Hypoglycemia Standing Ord. Docusate Sodium (Docusate Sodium 100 Mg Capsule) 100 mg PO DAILY PRN PRN Reason: Constipation Enoxaparin Sodium (Enoxaparin Sodium 40 Mg/0.4 Ml Syringe) 40 mg SUBCUT Q24H [facility] Last Admin: 10/09/23 16:46 Dose: Not Given Documented By: PANDA Non-Admin Reason: Patient Refused Gabapentin (Gabapentin 100 Mg Capsule) 200 mg PO TID [facility] Last Admin: 10/10/23 14:11 Dose: 200 mg Documented By: LUIS Glipizide (Glipizide 5 Mg Tablet) 5 mg PO DAILY [facility] Last Admin: 10/10/23 10:21 Dose: 5 mg Documented By: LUIS Glucose (Glucose Gel 15 Gm Gel..Gram.) 15 gm PO Q15M PRN; Protocol PRN Reason: per Hypoglycemia Standing Ord. Hydromorphone HCl (Hydromorphone Hcl 2 Mg Tablet) 1 mg PO Q8H PRN PRN Reason: Pain, Mild (Pain Scale 1-3) Last Admin: 10/10/23 10:24 Dose: 1 mg Documented By: LUIS Daptomycin 500 mg/ Sodium (Chloride) 60 mls @ 100.793 mls/hr IV Q24H [facility] Last Admin: 10/10/23 14:11 Dose: 100.79 mls/hr Documented By: LUIS Insulin Human Lispro (Insulin Lispro 100 Unit/Ml 3 Ml Vial) 0 unit SUBCUT QIDACHS [facility]; Protocol Last Admin: 10/10/23 13:06 Dose: Not Given Documented By: LUIS Non-Admin Reason: Patient Refused Melatonin (Melatonin 3 Mg Tablet) 6 mg PO BEDTIME PRN PRN Reason: Insomnia Last Admin: 10/06/23 22:10 Dose: 6 mg Documented By: HEATHER Ondansetron HCl (Ondansetron Hcl 4 Mg/2 Ml Vial) 4 mg IVPUSH Q8H PRN PRN Reason: Nausea and Vomiting Sodium Chloride (0.9 % Sodium Chloride Flush 3 Ml Syringe) 3 ml IVFLUSH QSHIFT [facility] Last Admin: 10/10/23 10:25 Dose: 3 ml Documented By: LUIS Vitamin D (Cholecalciferol (Vitamin D3) 25 Mcg Tablet) 50 mcg PO DAILY [facility] Last Admin: 10/10/23 10:20 Dose: 50 mcg Documented By: LUIS Labs 10/10/23 05:36 10/10/23 05:36 Labs: Laboratory Results - last 24 hr 10/09/23 10/09/23 10/10/23 15:26 19:42 05:36 MCV 82.8 MCH 27.0 MCHC 32.6 RDW 14.6 Plt Count 459 H MPV 8.6 L Absolute Nucleated RBC 0.000 Nucleated RBC % (auto) 0.0 Anion Gap 14 Estim Creat Clear Calc 113.1 Estimated GFR > 60 POC Glucose 178 H 201 H Random Glucose 201 H Calcium 9.2 D 10/10/23 10/10/23 07:15 11:12 MCV MCH MCHC RDW Plt Count MPV Absolute Nucleated RBC Nucleated RBC % (auto) Anion Gap Estim Creat Clear Calc Estimated GFR POC Glucose 155 H 189 H Random Glucose Calcium Microbiology Microbiology Results: Microbiology 10/04/23 14:50 Blood Culture - Final Blood - Venous No growth after 5 days. 10/04/23 14:35 Blood Culture - Final Blood - Venous No growth after 5 days. Procedures Date of Service Date of Service: 10/10/23 Progress Note: A&P Assessment and plan (1) PAD (peripheral artery disease): Status: Acute (2) Diabetic infection of right foot: Status: Acute Plan Can continue dressing changes daily while inpatient. Right foot- saline soaked packing to right open wound with betadine applied to surrounding area followed by dry fluff and kerlix. Left foot- apply santyl to open wound followed by fluff and kerlix wrap. Outpatient dressing changes to be done at the wound care center as the patient's insurance does not cover VNA and he cannot do dressing changes himself. To f/u with Dr. Waggoner on outpatient basis for PAD. Time Spent With Patient Time: Total time managing care of this patient today ____ minutes. Quality Stroke Does the patient have a stroke diagnosis?: No VTE Prior VTE?: No VTE Risk Level:: Medical - moderate - high VTE Device Contraindication: Treatment Not Indicated VTE Drug Contraindication: N/A - Med Ordered
== END 2023-10-10 17:11 | disposition home health service (06) | DRG 349 ==
LOC: HO.ED 15:41 → HO.EDOVER 17:28 → HO.S3 18:56
PROVIDERS: Admitting Provider Student in an Organized Health Care Education/Training Program; Emergency Provider Emergency Medicine; PCP Nurse Practitioner Family; Visit Provider Hospitalist
DX: T87.43 Infection of amputation stump, right lower extremity (principal); E11.52 Type 2 diabetes mellitus with diabetic peripheral angiopathy with gangrene; M86.171 Other acute osteomyelitis, right ankle and foot; E11.42 Type 2 diabetes mellitus with diabetic polyneuropathy; F22 Delusional disorders; E11.69 Type 2 diabetes mellitus with other specified complication; M65.171 Other infective (teno)synovitis, right ankle and foot; L97.429 Non-pressure chronic ulcer of left heel and midfoot with unspecified severity; Z20.822 Contact with and (suspected) exposure to COVID-19; Z86.14 Personal history of Methicillin resistant Staphylococcus aureus infection; Z79.84 Long term (current) use of oral hypoglycemic drugs; Z79.85 Long-term (current) use of injectable non-insulin antidiabetic drugs; Z79.899 Other long term (current) drug therapy
CPT/HCPCS: 36415; 36573; 73620; 73630; 73720; 80048; 80076; 80202; 80307; 82565; 82947; 83605; 83735; 84145; 85025; 85027; 85652; 86140; 87040; 87635; 93923; 93925; 99285; A9585; C1751; J0692; J0878; J1650; J3370

== ENCOUNTER → 2023-10-04 17:15 | Outpatient (BNV) | payer OTHER, SELFPAY | PROVIDERS: Admitting Provider Student in an Organized Health Care Education/Training Program; Emergency Provider Emergency Medicine; PCP Nurse Practitioner Family; Visit Provider Surgery Vascular Surgery | DX: I73.9 Peripheral vascular disease, unspecified (principal) | CPT/HCPCS: 99222; 99232 ==

== ENCOUNTER → 2023-10-04 17:15 | Outpatient (BNV) | payer OTHER, SELFPAY | PROVIDERS: Admitting Provider Student in an Organized Health Care Education/Training Program; Emergency Provider Emergency Medicine; Visit Provider Student in an Organized Health Care Education/Training Program | DX: M86.171 Other acute osteomyelitis, right ankle and foot (principal); E11.621 Type 2 diabetes mellitus with foot ulcer; L97.514 Non-pressure chronic ulcer of other part of right foot with necrosis of bone | CPT/HCPCS: 99223; 99232; 99233; 99239 ==

== ENCOUNTER → 2023-10-04 17:15 | Outpatient (BNV) | payer OTHER, SELFPAY | PROVIDERS: Admitting Provider Student in an Organized Health Care Education/Training Program; Emergency Provider Emergency Medicine; Visit Provider Social Worker | DX: F39 Unspecified mood [affective] disorder (principal) | CPT/HCPCS: 99222; 99231 ==

== ENCOUNTER → 2023-10-04 17:15 | Outpatient (BNV) | payer OTHER, SELFPAY | PROVIDERS: Admitting Provider Student in an Organized Health Care Education/Training Program; Emergency Provider Emergency Medicine; Visit Provider Surgery | DX: I73.9 Peripheral vascular disease, unspecified (principal); E11.628 Type 2 diabetes mellitus with other skin complications; L08.9 Local infection of the skin and subcutaneous tissue, unspecified | CPT/HCPCS: 99222; 99232 ==

== ENCOUNTER → 2023-10-04 17:15 | Outpatient (BNV) | payer OTHER, SELFPAY | PROVIDERS: Admitting Provider Student in an Organized Health Care Education/Training Program; Emergency Provider Emergency Medicine; PCP Nurse Practitioner Family; Visit Provider Internal Medicine | DX: D72.829 Elevated white blood cell count, unspecified (principal); A49.1 Streptococcal infection, unspecified site; M86.172 Other acute osteomyelitis, left ankle and foot | CPT/HCPCS: 99222 ==

== ENCOUNTER 2023-10-25 14:32 | Outpatient (REF) | payer OTHER, SELFPAY ==
[2023-10-25 14:35] LABS: MANUAL DIFF FLAG NO
[2023-10-25 14:47] LABS: Basophils Absolute Auto 0.1 X10*3/uL (0.0-0.2); Basophils Percent Auto 0.5 % (0-2); Eosinophils Absolute Auto 0.1 X10*3/uL (0.0-0.4); Eosinophils Percent Auto 0.3 % (0-4); Hematocrit 43.9 % (42.0-52.0); Hemoglobin 14.4 g/dl (14.0-18.0); Imm Gran Abs Auto 0.12 X10*3/uL (0.00-0.03); Imm Gran Pct Auto 0.7 % (0.0-0.4); Lymphocytes Percent Auto 11.8 % (20-40); Mean Corpuscular HGB Conc 32.8 g/dl (31.0-36.0); Mean Corpuscular Hemoglobin 27.6 pg (27.0-33.0); Mean Corpuscular Volume 84.1 fL (80.0-98.0); Mean Platelet Volume 9.2 fL (9.4-12.4); Monocytes Percent Auto 5.7 % (2-11); Neutrophils Absolute Auto 13.7 x10*3/uL (2.0-8.3); Platelet Count 476 X10*3/uL (160-400); Red Blood Count 5.22 X10*6/uL (4.60-5.80); Red Cell Distribution Width 15.2 % (11.0-16.0); White Blood Count 16.9 X10*3/uL (4.8-10.8)
[2023-10-25 15:36] LABS: Anion Gap 17 (12-20); Blood Urea Nitrogen 17 mg/dL (9-16); Carbon Dioxide 22 mmol/L (22-29); Chloride 100 mmol/L (96-108); Estimated Glomerular Filt Rate > 60; Glucose Random 230 mg/dL (60-115); Potassium 4.9 mmol/L (3.3-5.1); Sodium 134 mmol/L (135-145)
== END 2023-10-25 14:33 | disposition home or self-care (01) ==
LOC: HO.HVNA 14:32
PROVIDERS: Visit Provider Hospitalist
DX: L03.116 Cellulitis of left lower limb (principal); M86.171 Other acute osteomyelitis, right ankle and foot; R78.81 Bacteremia
CPT/HCPCS: 36415; 80048; 82550; 85025

== ENCOUNTER 2023-10-30 11:35 | Outpatient (AMB) | payer OTHER, SELFPAY ==
--- NOTE | 2023-10-30 11:35 | A.OFFVIS_ITS ---
Intake Intake Visit Reasons: Hosp follow up right foot Intake Note: follow up Right foot wounds, VNA changes dressing QOD and wound clinic 1 x per week Accompanied by: Self / Same As Patient Allergies amoxicillin [AMOXICILLIN] Allergy (Severe, Verified 10/30/23 11:40) ANAPHYLAXIS oxycodone [From Tylox] Allergy (Intermediate, Verified 10/30/23 11:40) Itching hydrocodone [HYDROCODONE] Allergy (Unknown, Verified 10/30/23 11:40) UNKNOWN HPI Hosp follow up right foot HPI Details Very complex 48-year-old gentleman presents for follow-up regarding peripheral vascular disease. He does see the wound care center 3 times a week. Is on IV daptomycin which is scheduled to in November 17. He is currently in a program and appears to be quite emotional. We did request he see primary care and unfortunately it was only a telephone visit at that time. Now presents to us for follow-up. He reports interval improvement of the wound. [facility] Medical History Mood disorder Anxiety Acute osteomyelitis of left foot Nausea and vomiting Marijuana smoker MRSA (methicillin resistant Staphylococcus aureus) GERD (gastroesophageal reflux disease) Bacteremia due to Streptococcus Posttraumatic stress disorder Staphylococcus aureus bacteremia 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 Bacterial infection due to Streptococcus, group C Acidosis, lactic Cellulitis Right foot infection Anxiety Diabetes type 2, controlled Surgical History History of amputation (12/11/22) History of partial amputation of toe (10/11/22) History of incision and drainage History of laparoscopic cholecystectomy Social History Household Members: None Housing: Apartment Housing Other:: refused to answer Do you presently have visiting nurse or other home services: Yes Unable to assess alcohol history related to: Refusing to respond Alcohol intake: current Alcohol intake frequency: holidays/special occasions only Alcohol type: beer Comment: refuses alarms, camera. Education provided about safety Patient Tobacco Use Status: Refuse Tobacco use screen Tobacco use type: Cigarette Cigarette Packs Per Day: 1 Cigarettes Per Day: 10 Years Smoked: 36 years Second Hand Smoke Exposure: No Substance Use Type: Marijuana service: No Current occupational status: disabled Review of Systems Const All systems reviewed & are unremarkable except as noted in HPI and below Reports no additional complaints ENT Reports Normal hearing present Card Denies chest pain, Denies chest pain at rest, Denies chest pain with activity and Denies pedal edema Resp Denies cough GI Denies abdominal pain Musc Denies abnormal gait, Denies muscle cramps and Denies radiating pain into limb Skin/Breast Denies skin ulcer and Denies wounds Neuro Reports Normal hearing present and Denies abnormal gait Psych Reports no additional complaints Physical Exam Const General: cooperative, healthy appearing and comfortable Orientation/consciousness: oriented to person, oriented to place and oriented to time HEENT Head: Yes normal to inspection Neck Neck: Yes normal visual inspection Carotids: no bruits Chest Chest palpation & inspection: normal inspection of the chest Resp Effort & Inspection: normal respiratory effort and able to speak in complete sentences Auscultation: clear to auscultation bilaterally, no crackles, no rales, no rhonchi and no wheezes Cardio Rate: regular rate Rhythm: regular rhythm Heart sounds: S1 normal heart sound present and S2 normal heart sound present Bruits: no carotid bruits Peripheral pulses: Peripheral pulses 2+ throughout GI Inspection: Yes normal to inspection Skin Wounds: no wounds Hair: normal Neuro General: oriented to person, oriented to place and oriented to time Cranial nerves: Yes CN's II-XII intact bilaterally and Yes Normal hearing present Cognition (Neuro): normal cognition Motor exam (neuro): 5/5 motor strength present throughout Extrem Other: venous exam: No significant superficial varicosities or spider telangiectasias, minimal edema General: No clubbing, No cyanosis and No edema Psych Appearance: grossly normal Mental Status: mental status grossly normal Speech and movement: Normal speech and movement present Results Reviewed Results Reviewed: Noninvasive arterial testing demonstrates DANIEL on the right 0.44 and on the left 0.89. Written report and images were reviewed. Assessment & Plan Assessment & Plan (1) PAD (peripheral artery disease): Code(s): I73.9 - Peripheral vascular disease, unspecified Plan: In short patient has nonhealing ulcers. I did review the pathophysiology of peripheral vascular disease with the patient. In addition we did discuss routine conservative measures including a healthy diet and the importance of exercise and ambulation. We did discuss risk factor modification. I have taken the liberty of ordering a CT angiogram to better elucidate the location an area of disease. Thank you for allowing us to participate in this patient's care. If there are any questions or concerns please do not hesitate to contact us. Orders: Orders Blood Urea Nitrogen Today I73.9 - Peripheral vascular disease, unspecified Creatinine Today I73.9 - Peripheral vascular disease, unspecified CT angio abd aorta runoff 1 Week I73.9 - Peripheral vascular disease, unspecified Coding Level of Care Code Est Pt Level 4 (37944) Diagnoses PAD (peripheral artery disease) I73.9
== END 2023-10-30 11:49 | disposition home or self-care (01) ==
PROVIDERS: PCP Nurse Practitioner Family; Visit Provider Surgery Vascular Surgery
DX: I73.9 Peripheral vascular disease, unspecified (principal)
CPT/HCPCS: 99214

== ENCOUNTER → 2023-10-30 11:35 | Outpatient (BNVA) | payer OTHER, SELFPAY | PROVIDERS: PCP Nurse Practitioner Family; Visit Provider Surgery Vascular Surgery | DX: I73.9 Peripheral vascular disease, unspecified (principal); L98.499 Non-pressure chronic ulcer of skin of other sites with unspecified severity | CPT/HCPCS: 99212 ==

== ENCOUNTER 2023-11-01 11:18 | Outpatient (REF) | payer OTHER, SELFPAY ==
[2023-11-01 11:26] LABS: MANUAL DIFF FLAG NO
[2023-11-01 11:44] LABS: Basophils Absolute Auto 0.1 X10*3/uL (0.0-0.2); Basophils Percent Auto 0.5 % (0-2); Eosinophils Percent Auto 6.1 % (0-4); Hematocrit 43.8 % (42.0-52.0); Hemoglobin 14.5 g/dl (14.0-18.0); Imm Gran Pct Auto 0.6 % (0.0-0.4); Lymphocytes Absolute Auto 3.6 X10*3/uL (1.2-4.9); Lymphocytes Percent Auto 21.3 % (20-40); Mean Corpuscular HGB Conc 33.1 g/dl (31.0-36.0); Mean Corpuscular Hemoglobin 27.3 pg (27.0-33.0); Mean Corpuscular Volume 82.5 fL (80.0-98.0); Mean Platelet Volume 9.3 fL (9.4-12.4); Monocytes Absolute Auto 1.1 X10*3/uL (0.1-1.2); Monocytes Percent Auto 6.5 % (2-11); Neutrophils Absolute Auto 10.9 x10*3/uL (2.0-8.3); Platelet Count 447 X10*3/uL (160-400); Red Blood Count 5.31 X10*6/uL (4.60-5.80); Red Cell Distribution Width 15.6 % (11.0-16.0); White Blood Count 16.8 X10*3/uL (4.8-10.8)
[2023-11-01 12:25] LABS: Anion Gap 16 (12-20); Blood Urea Nitrogen 12 mg/dL (9-16); Calcium 8.6 mg/dL (8.4-10.2); Carbon Dioxide 22 mmol/L (22-29); Chloride 105 mmol/L (96-108); Estimated Glomerular Filt Rate > 60; Glucose Random 124 mg/dL (60-115); Potassium 4.7 mmol/L (3.3-5.1); Sodium 138 mmol/L (135-145)
== END 2023-11-01 11:19 | disposition home or self-care (01) ==
LOC: HO.LNP 11:18
PROVIDERS: Visit Provider Internal Medicine
DX: M86.171 Other acute osteomyelitis, right ankle and foot (principal); L03.116 Cellulitis of left lower limb; R78.81 Bacteremia
CPT/HCPCS: 80048; 82550; 85025

== ENCOUNTER 2023-11-08 12:25 | Outpatient (REF) | payer OTHER, SELFPAY ==
[2023-11-08 12:31] LABS: MANUAL DIFF FLAG NO
[2023-11-08 12:35] LABS: Basophils Absolute Auto 0.1 X10*3/uL (0.0-0.2); Basophils Percent Auto 0.4 % (0-2); Eosinophils Absolute Auto 0.5 X10*3/uL (0.0-0.4); Eosinophils Percent Auto 3.4 % (0-4); Hematocrit 43.9 % (42.0-52.0); Hemoglobin 14.8 g/dl (14.0-18.0); Imm Gran Abs Auto 0.07 X10*3/uL (0.00-0.03); Imm Gran Pct Auto 0.5 % (0.0-0.4); Mean Corpuscular HGB Conc 33.7 g/dl (31.0-36.0); Mean Corpuscular Hemoglobin 28.2 pg (27.0-33.0); Mean Corpuscular Volume 83.6 fL (80.0-98.0); Mean Platelet Volume 9.1 fL (9.4-12.4); Monocytes Percent Auto 7.4 % (2-11); Neutrophils Absolute Auto 10.4 x10*3/uL (2.0-8.3); Neutrophils Percent Auto 74.3 % (45-73); Platelet Count 421 X10*3/uL (160-400); Red Blood Count 5.25 X10*6/uL (4.60-5.80); Red Cell Distribution Width 15.6 % (11.0-16.0)
[2023-11-08 13:50] LABS: Anion Gap 15 (12-20); Blood Urea Nitrogen 14 mg/dL (9-16); Calcium 8.6 mg/dL (8.4-10.2); Carbon Dioxide 22 mmol/L (22-29); Chloride 104 mmol/L (96-108); Estimated Glomerular Filt Rate > 60; Glucose Random 149 mg/dL (60-115); Potassium 4.9 mmol/L (3.3-5.1); Sodium 136 mmol/L (135-145)
== END 2023-11-08 12:26 | disposition home or self-care (01) ==
LOC: HO.LNP 12:25
PROVIDERS: Visit Provider Internal Medicine
DX: M86.171 Other acute osteomyelitis, right ankle and foot (principal); L03.116 Cellulitis of left lower limb; R78.81 Bacteremia
CPT/HCPCS: 80048; 82550; 85025

== ENCOUNTER 2023-11-14 14:30 | Outpatient (REF) | payer OTHER, SELFPAY ==
[2023-11-14 14:37] LABS: MANUAL DIFF FLAG NO
[2023-11-14 14:40] LABS: Basophils Absolute Auto 0.1 X10*3/uL (0.0-0.2); Basophils Percent Auto 0.4 % (0-2); Eosinophils Percent Auto 0.2 % (0-4); Hemoglobin 13.7 g/dl (14.0-18.0); Imm Gran Abs Auto 0.06 X10*3/uL (0.00-0.03); Imm Gran Pct Auto 0.4 % (0.0-0.4); Lymphocytes Percent Auto 22.6 % (20-40); Mean Corpuscular HGB Conc 33.4 g/dl (31.0-36.0); Mean Corpuscular Hemoglobin 27.5 pg (27.0-33.0); Mean Corpuscular Volume 82.3 fL (80.0-98.0); Monocytes Absolute Auto 0.8 X10*3/uL (0.1-1.2); Monocytes Percent Auto 6.2 % (2-11); Neutrophils Absolute Auto 9.4 x10*3/uL (2.0-8.3); Neutrophils Percent Auto 70.2 % (45-73); Platelet Count 429 X10*3/uL (160-400); Red Blood Count 4.98 X10*6/uL (4.60-5.80); Red Cell Distribution Width 15.7 % (11.0-16.0); White Blood Count 13.5 X10*3/uL (4.8-10.8)
[2023-11-14 15:22] LABS: Anion Gap 13 (12-20); Blood Urea Nitrogen 9 mg/dL (9-16); Calcium 8.6 mg/dL (8.4-10.2); Carbon Dioxide 22 mmol/L (22-29); Chloride 106 mmol/L (96-108); Estimated Glomerular Filt Rate > 60; Glucose Random 171 mg/dL (60-115); Potassium 4.7 mmol/L (3.3-5.1); Sodium 136 mmol/L (135-145)
== END 2023-11-14 14:31 | disposition home or self-care (01) ==
LOC: HO.LNP 14:30
PROVIDERS: Visit Provider Internal Medicine
DX: M86.171 Other acute osteomyelitis, right ankle and foot (principal); L03.116 Cellulitis of left lower limb; R78.81 Bacteremia
CPT/HCPCS: 80048; 82550; 85025

== ENCOUNTER 2023-11-20 10:11 | Outpatient (REF) | payer OTHER, SELFPAY ==
--- NOTE | ~2023-11-20 | CT_ITS ---
EXAMINATION: CTA ABDOMINAL AORTA HISTORY: Peripheral vascular disease. COMPARISON: None available. DESCRIPTION: Routine abdominal aorta and lower extremity runoff CTA protocol with contrast was performed. 100 mL of Omnipaque 350 was administered. 3D POSTPROCESSING: Multiple 3-D angiographic images were processed from the initial data set by the [facility] under concurrent physician supervision. This CT examination was performed using dose optimization techniques as appropriate, variously including the following: Automated exposure control. Adjustment of mA and/or kV according to patient size (this includes techniques or standardized protocols for targeted exams where dose is matched to indication/reason for exam; i.e. extremities or head). Use of iterative reconstruction technique. DLP: 742.00 mGy-cm. FINDINGS: VASCULAR: ABDOMINAL AORTA: Minimal atherosclerotic change without stenosis, aneurysm or dissection. RIGHT LOWER EXTREMITY: - Common Iliac Artery: Normal. - Internal Iliac Artery: Mild atherosclerotic disease. - External Iliac Artery: Widely patent. - Common Femoral Artery: Widely patent. - Profunda Femoral Artery: Widely patent. - Superficial Femoral Artery: Patent proximally with abrupt occlusion just above the level of the adductor canal. - Popliteal Artery: Reconstituted and normal in appearance. - Tibioperoneal Trunk: Normal. - Posterior Tibial Artery: Normal. - Peroneal Artery: Normal. - Anterior Tibial Artery: Normal. LEFT LOWER EXTREMITY: - Common Iliac Artery: Mild atherosclerotic disease with some eccentric noncalcified plaque, without hemodynamically significant stenosis. - Internal Iliac Artery: Patent. - External Iliac Artery: Normal. - Common Femoral Artery: Widely patent with some mild disease. - Profunda Femoral Artery: Widely patent. - Superficial Femoral Artery: Minimal disease at the adductor canal without significant stenosis. - Popliteal Artery: Some mild disease at the level of the knee joint, but widely patent. - Tibioperoneal Trunk: Widely patent. - Posterior Tibial Artery: Widely patent. - Peroneal Artery: Widely patent. - Anterior Tibial Artery: Mild disease proximally, but widely patent. CELIOMESENTERIC ARTERIES: Common trunk involving the celiac and SMA. Left gastric arises separately from the aorta. The JESÚS is patent. RENAL ARTERIES: A single renal artery is present bilaterally, which are widely patent. NONVASCULAR: Lung Bases: The visualized lung bases are unremarkable. Liver, Gallbladder and Biliary Tree: The liver is normal in size, shape, and attenuation. No focal hepatic lesion or biliary ductal dilatation is present. Status post cholecystectomy. Pancreas: Unremarkable. Spleen: Unremarkable. Adrenal Glands: Unremarkable. Kidneys and Ureters: The kidneys are normal in size, shape, and attenuation. No hydronephrosis, hydroureter, or calculi seen. No perinephric stranding. Bladder: Unremarkable. Gastrointestinal Tract: The small and large bowel are unremarkable. The appendix is unremarkable. Abdominal Wall: No significant hernia is appreciated. Lymph Nodes: No retroperitoneal lymphadenopathy. Pelvic Viscera: There is mild BPH. Seminal vesicles appear normal. Osseous Structures: Mild degenerative changes in the spine. No bony destructive lesions. CT/CT angio abd aorta runoff IMPRESSION: 1. No significant aortoiliac inflow disease. 2. On the right, there is a short segment SFA occlusion with reconstitution of the popliteal artery and three-vessel runoff. 3. On the left, there is some minimal disease in the SFA and popliteal artery with three-vessel runoff. 4. Nonvascular findings significant for cholecystectomy, mild BPH and degenerative changes in the spine.
[2023-11-20] MEDS: iohexoL 350 MG/ML 100 ML INFUS..BTL IV (11:39)
== END 2023-11-20 10:12 | disposition home or self-care (01) ==
LOC: HO.CT 10:11
PROVIDERS: PCP Nurse Practitioner Family; Visit Provider Surgery Vascular Surgery
DX: I73.9 Peripheral vascular disease, unspecified (principal)
CPT/HCPCS: 75635; Q9967

== ENCOUNTER 2023-11-21 10:17 | Outpatient (AMB) | payer OTHER, SELFPAY ==
--- NOTE | 2023-11-21 10:16 | MHC.OFFVIS ---
Intake Vital Signs 11/21/23 11:40 Weight 183 lb Pulse 91 Pulse Source Pulse Oximeter Temp 98.6 F Temp Source Oral Pulse Oximetry (%) 99 Intake Visit Reasons: ulcer/end of antibiotic Allergies amoxicillin [AMOXICILLIN] Allergy (Severe, Verified 11/21/23 11:27) ANAPHYLAXIS oxycodone [From Tylox] Allergy (Intermediate, Verified 11/21/23 11:27) Itching hydrocodone [HYDROCODONE] Allergy (Unknown, Verified 11/21/23 11:27) UNKNOWN acetaminophen [From Tylox] Allergy (Verified 11/21/23 16:05) Itching HPI ulcer/end of antibiotic HPI Details He HPI Comments History of Present Illness Details He presents for evaluation right foot infection and some left infection also. He has been taking Daptomycin,done on 11/19 rx done six weeks and wants more antibiotics. He is upset and reports the increased WBC I see as part of his labs. He also reports drainage and odor from wound. [facility] Medical History Mood disorder Anxiety Acute osteomyelitis of left foot Nausea and vomiting Marijuana smoker MRSA (methicillin resistant Staphylococcus aureus) GERD (gastroesophageal reflux disease) Bacteremia due to Streptococcus Posttraumatic stress disorder Staphylococcus aureus bacteremia 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 Bacterial infection due to Streptococcus, group C Acidosis, lactic Cellulitis Right foot infection Anxiety Diabetes type 2, controlled Surgical History History of amputation (12/11/22) History of partial amputation of toe (10/11/22) History of incision and drainage History of laparoscopic cholecystectomy Social History Household Members: None Housing: Apartment Housing Other:: refused to answer Do you presently have visiting nurse or other home services: Yes Unable to assess alcohol history related to: Refusing to respond Alcohol intake: current Alcohol intake frequency: holidays/special occasions only Alcohol type: wine Comment: refuses alarms, camera. Education provided about safety Patient Tobacco Use Status: Refuse Tobacco use screen Tobacco use type: Cigarette Cigarette Packs Per Day: 1 Cigarettes Per Day: 10 Years Smoked: 36 years Smoked in Last 30 Days: Yes Second Hand Smoke Exposure: No Use of substances other than those prescribed or required for medical reasons: Yes Substance Use Type: Marijuana service: No Current occupational status: disabled Review of Systems Const All systems reviewed & are unremarkable except as noted in HPI and below Physical Exam Vital Signs: Last Vital Signs Temp 98.6 F 11/21/23 11:40 Pulse 91 11/21/23 11:40 Pulse Ox 99 11/21/23 11:40 Const General: cooperative Orientation/consciousness: patient oriented x3 HEENT Head: Yes normal to inspection Face and sinus: Yes normal facial exam Mouth: Normal oral and palatal mucosa present Teeth and gingiva: dentition normal Eyes General: appearance normal, both eyes and all related structures Pupils: Equal, round and reactive pupils present Resp Effort & Inspection: normal respiratory effort Cardio Rate: regular rate Rhythm: regular rhythm GI Palpation (GI): Soft to palpation and nontender General: Yes no CVA tenderness Back/Spine/Pelvis Back: no CVA tenderness Skin General skin exam: no rashes or lesions noted Neuro General: patient oriented x3 and moves all extremities Cranial nerves: Yes Equal, round and reactive pupils present Extrem Other: right foot oozing and purulent malodorous foot second toe visible stef structures left foot not as acute wound General: Yes normal to inspection Psych Appearance: grossly normal Assessment & Plan Assessment & Plan (1) PAD (peripheral artery disease): Code(s): I73.9 - Peripheral vascular disease, unspecified Plan: n/a (2) Open wnd foot-complicated: Code(s): S91.309A - Unspecified open wound, unspecified foot, initial encounter Qualifiers: Encounter type: initial encounter Laterality: right Qualified Code(s): S91.301A - Unspecified open wound, right foot, initial encounter Plan: n/a (3) Diabetic infection of right foot: Comment: Patient rude to myself and staff saying Im not a vascular surgeon and cant comment on his need for BKA. I referred him to ER and did text Dr Waggoner. I have nothing further to offer him for antibiotics Code(s): E11.628 - Type 2 diabetes mellitus with other skin complications; L08.9 - Local infection of the skin and subcutaneous tissue, unspecified Plan: na Coding Level of Care Code Est Pt Level 3 (85880) Diagnoses PAD (peripheral artery disease) I73.9 Open wnd foot-complicated S91.301A Encounter type: initial encounter Laterality: right Diabetic infection of right foot E11.628; L08.9
[2023-11-21 11:40] VITALS: PULSE 91; TEMP 37; O2SAT 99
== END 2023-11-21 11:56 | disposition home or self-care (01) ==
PROVIDERS: PCP Nurse Practitioner Family; Visit Provider Internal Medicine
DX: I73.9 Peripheral vascular disease, unspecified (principal); S91.301A Unspecified open wound, right foot, initial encounter; E11.628 Type 2 diabetes mellitus with other skin complications; L08.9 Local infection of the skin and subcutaneous tissue, unspecified
CPT/HCPCS: 99213

== ENCOUNTER → 2023-11-21 10:17 | Outpatient (BNVA) | payer OTHER, SELFPAY | PROVIDERS: PCP Nurse Practitioner Family; Visit Provider Internal Medicine | DX: E11.628 Type 2 diabetes mellitus with other skin complications (principal); S91.301A Unspecified open wound, right foot, initial encounter; E11.51 Type 2 diabetes mellitus with diabetic peripheral angiopathy without gangrene; L08.9 Local infection of the skin and subcutaneous tissue, unspecified; Z79.2 Long term (current) use of antibiotics | CPT/HCPCS: 99212 ==

== ENCOUNTER 2023-11-21 15:31 | Inpatient (IN) | payer OTHER, SELFPAY ==
[2023-11-21 15:46] VITALS: BP 105/67; PULSE 84; O2SAT 98
[2023-11-21 15:59] VITALS: BP 104/63; BP 105/67; PULSE 76; PULSE 78; RESP 18; TEMP 37.2; O2SAT 100; O2SAT 98; BMI 26.9
[2023-11-21 16:06] VITALS: BP 104/63; PULSE 76; RESP 18; TEMP 37.2; O2SAT 100
--- NOTE | 2023-11-21 16:06 | ED_ITS ---
HPI - Wound/Laceration General Chief Complaint: Wound/Laceration Stated Complaint: FOOT INFECTION Time Seen by Provider: 11/21/23 16:02 Source: patient Mode of arrival: EMS Limitations: no limitations History of Present Illness HPI narrative: Patient diabetic with chronic nonhealing wound in right foot for ears getting worse for last few months status post right get a toe amputation in 10/24 patient with a history of hypertension diabetes history osteomyelitis with multiple toes amputation with history of MRSA and group C strep bacteremia PTSD and discharged from here on 10/09/2023 doxycycline for osteomyelitis right foot patient has open bone in right foot plan for amputation. Patient does have low-grade fever and chills foul-smelling discharge from the right foot Related Data Home Medications Medication Instructions Recorded Confirmed cholecalciferol (vitamin D3) 50 50 mcg PO DAILY 11/04/21 11/21/23 mcg (2,000 unit) capsule gabapentin 100 mg capsule 200 mg PO TID 10/06/22 11/21/23 metformin 500 mg tablet 500 mg PO BID 10/06/22 11/21/23 ascorbic acid (vitamin C) 500 mg 500 mg PO DAILY 11/29/22 11/21/23 tablet dulaglutide 1.5 mg/0.5 mL 1.5 mg subcut FR 11/29/22 11/21/23 subcutaneous pen injector (Trulicity) acetaminophen 500 mg tablet 500 mg PO TID PRN Pain 11/21/23 11/21/23 naproxen 500 mg tablet 500 mg PO BID PRN Pain 11/21/23 11/21/23 Previous Rx's Medication Instructions Recorded glipizide 5 mg tablet 5 mg PO DAILY #30 tabs 10/10/23 Allergies Allergy/AdvReac Type Severity Reaction Status Date / Time amoxicillin [AMOXICILLIN] Allergy Severe ANAPHYLAXIS Verified 11/22/23 15:04 oxycodone [From Tylox] Allergy Intermediate Itching Verified 11/22/23 15:04 hydrocodone [HYDROCODONE] Allergy Unknown UNKNOWN Verified 11/22/23 15:04 acetaminophen [From Tylox] Allergy Itching Verified 11/22/23 15:04 Review of Systems 2 Review of Systems: Yes all other systems are reviewed and are negative PMFSH Past Medical History Medical History Mood disorder Anxiety Nausea and vomiting Acute osteomyelitis of left foot Marijuana smoker MRSA (methicillin resistant Staphylococcus aureus) GERD (gastroesophageal reflux disease) Bacteremia due to Streptococcus Posttraumatic stress disorder Staphylococcus aureus bacteremia 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 Bacterial infection due to Streptococcus, group C Acidosis, lactic Cellulitis Right foot infection Anxiety Diabetes type 2, controlled Surgical History History of tonsillectomy History of amputation (12/11/22) History of partial amputation of toe (10/11/22) History of incision and drainage History of laparoscopic cholecystectomy Social History Social History Household Members: None Housing: Apartment Housing Other:: refused to answer Do you presently have visiting nurse or other home services: Yes Unable to assess alcohol history related to: Refusing to respond Alcohol intake: current Alcohol intake frequency: holidays/special occasions only Alcohol type: wine Comment: refuses alarms, camera. Education provided about safety Patient Tobacco Use Status: Current everyday Tobacco user Tobacco use type: Cigarette Cigarette Packs Per Day: 0.5 Cigarettes Per Day: 10.0 Years Smoked: 36 years Smoked in Last 30 Days: Yes Patient Interested in Nicotine Replacement: Yes Patient Given Instructions on How to Stop Smoking: No (declines) Second Hand Smoke Exposure: No Use of substances other than those prescribed or required for medical reasons: Yes Substance Use Type: Marijuana Substance Use Frequency: Daily Currently Displaying Signs/Symptoms of Drug Intoxication Withdrawal: No Have you been hit, kicked, punched, or otherwise hurt by someone within the past year? If so, by whom?: No Do you feel safe in your current relationship?: No Current Relationship Is there a partner from a previous relationship who is making you feel unsafe now?: No Are you made to feel afraid or neglected: No Are you DNR?: No Advance Directives: No Advance Directives Information Provided: No Do you have thoughts of harming others: None Do you have a plan to hurt others: No Plan Recently lost weight without trying: No Nutrition Risks: No Nutritional Risk service: No Current occupational status: disabled Physical Exam 2 Vital Signs: Vital Signs: Last Vital Signs Temp 97.3 F 11/23/23 23:29 Pulse 98 11/23/23 23:29 Resp 16 11/23/23 23:29 BP 143/85 H 11/23/23 23:29 Pulse Ox 99 11/23/23 23:29 O2 Del Method Room Air 11/23/23 23:29 O2 Flow Rate 3 11/22/23 17:49 BMI result Body Mass Index 26.9 Appearance: Alert. Oriented X3. No acute distress. Eyes: No pallor or icterus ENT: Pharynx normal. Oral Mucosa moist multiple teeth missing Neck: Normal inspection. Neck supple. CVS: Normal heart rate and rhythm. Pulses normal. Respiratory: No respiratory distress. Equal air entry bilateral, no wheezing/rales/rhonchi Abdomen: Soft and nontender. Bowel sounds are present, no mass palpable, no CVA tenderness Skin: Skin warm and dry. Normal skin color. Normal skin turgor. Extremities: No lower extremity edema. No calf tenderness Nonhealing wound right foot in the pictures as described also has callus and blackening of the left 2nd toe in the picture Right foot >>> Left Foot>> Neuro: Oriented X 3. No motor deficit. Medications Administered Generic Name Dose Route Start Last Admin Trade Name Freq PRN Reason Stop Dose Admin Alprazolam 0.25 mg 11/22/23 11:34 11/23/23 01:52 Alprazolam 0.25 Mg Tablet PO 0.25 mg TID PRN Administration Anxiety Ascorbic Acid 500 mg 11/22/23 09:00 11/23/23 07:53 Ascorbic Acid 500 Mg Tablet PO 500 mg DAILY IRISH Administration Cyclobenzaprine HCl 5 mg 11/23/23 10:40 11/23/23 20:22 Cyclobenzaprine Hcl 5 Mg Tablet PO 5 mg TID IRISH Administration Enoxaparin Sodium 40 mg 11/21/23 19:00 11/23/23 19:44 Enoxaparin Sodium 40 Mg/0.4 Ml Syringe SUBCUT 40 mg Q24H IRISH Administration Gabapentin 400 mg 11/23/23 15:00 11/23/23 20:22 Gabapentin 400 Mg Capsule PO 400 mg TID IRISH Administration Hydromorphone HCl 0.5 mg 11/22/23 17:24 11/22/23 17:47 Hydromorphone Hcl 0.5 Mg/0.5 Ml Syringe IVPUSH 0.5 mg Q5M PRN Administration Pain, Severe (Pain Scale 7-10) Protocol Hydromorphone HCl 1 mg 11/23/23 10:40 11/24/23 01:47 Hydromorphone Hcl 1 Mg/Ml Syringe IVPUSH 1 mg Q2H PRN Administration Pain, Severe (Pain Scale 7-10) Protocol Cefepime HCl 2 gm/ Sodium 50 mls @ 100 mls/hr 11/22/23 07:00 11/23/23 20:27 Chloride IV Infused Q12H [facility] Infusion Vancomycin HCl 750 mg/ Sodium 265 mls @ 265 mls/hr 11/22/23 02:00 11/24/23 01:48 Chloride IV 265 mls/hr Q8H [facility] Administration Insulin Human Lispro 0 unit 11/21/23 21:00 11/23/23 21:37 Insulin Lispro 100 Unit/Ml 3 Ml Vial SUBCUT Not Given QIDACHS [facility] Protocol Melatonin 6 mg 11/21/23 18:52 11/22/23 19:51 Melatonin 3 Mg Tablet PO 6 mg BEDTIME PRN Administration Insomnia Naproxen 500 mg 11/21/23 21:00 11/22/23 19:51 Naproxen 500 Mg Tablet PO 500 mg BID PRN Administration Pain, Mild (Pain Scale 1-3) Sodium Chloride 3 ml 11/22/23 00:00 11/23/23 23:11 0.9 % Sodium Chloride Flush 3 Ml Syringe [facility]FLUSH [facility] Vitamin D 50 mcg 11/22/23 09:00 11/23/23 07:53 Cholecalciferol (Vitamin D3) 25 Mcg Tablet PO 50 mcg DAILY [facility] Administration Discontinued Medications Generic Name Dose Route Start Last Admin Trade Name Freq PRN Reason Stop Dose Admin Alprazolam 0.25 mg 11/22/23 11:34 11/22/23 12:22 Alprazolam 0.25 Mg Tablet PO 11/22/23 11:35 0.25 mg ONCE ONE Administration Alprazolam 0.25 mg 11/23/23 01:49 11/23/23 01:57 Alprazolam 0.25 Mg Tablet PO 11/23/23 01:50 Not Given ONCE ONE Fentanyl 25 mcg 11/22/23 17:24 11/22/23 17:37 Fentanyl Citrate/Pf 100 Mcg/2 Ml Vial IVPUSH 25 mcg Q5M PRN Administration Pain, Moderate(Pain Scale 4-6) Protocol Gabapentin 200 mg 11/21/23 21:00 11/23/23 07:53 Gabapentin 100 Mg Capsule PO 200 mg TID IRISH Administration Glipizide 5 mg 11/22/23 09:00 11/22/23 09:31 Glipizide 5 Mg Tablet PO 5 mg DAILY IRISH Administration Hydromorphone HCl 1 mg 11/22/23 19:52 11/22/23 20:04 Hydromorphone Hcl 1 Mg/Ml Syringe IVPUSH 11/22/23 19:53 1 mg ONCE ONE Administration Protocol Hydromorphone HCl 1 mg 11/22/23 22:16 11/23/23 10:36 Hydromorphone Hcl 1 Mg/Ml Syringe IVPUSH 1 mg Q4H PRN Administration Pain, Severe (Pain Scale 7-10) Protocol Vancomycin HCl 2,000 mg in 500 mls @ 250 mls/hr 11/21/23 16:49 11/21/23 20:09 Vancomycin/Ns IV 11/21/23 18:48 Infused ONCE ONE Infusion Sodium Chloride 1,000 mls @ 999 mls/hr 11/21/23 16:50 11/21/23 21:37 Ns IV 11/21/23 17:50 Infused .Q1H1M ONE Infusion Cefepime HCl 2 gm/ Sodium 50 mls @ 100 mls/hr 11/21/23 17:19 11/21/23 21:05 Chloride IV 11/21/23 17:48 Infused ONCE ONE Infusion Ketorolac Tromethamine 15 mg 11/22/23 22:19 11/23/23 07:52 Ketorolac Tromethamine 15 Mg/Ml Vial IVPUSH 15 mg Q6H PRN Administration Pain, Severe (Pain Scale 7-10) Lorazepam 1 mg 11/22/23 17:31 11/22/23 17:40 Lorazepam 2 Mg/Ml Vial IVPUSH 11/22/23 17:32 1 mg ONCE ONE Administration Morphine Sulfate 2 mg 11/22/23 11:44 11/22/23 19:16 Morphine Sulfate 4 Mg/Ml Cartridge IVPUSH 2 mg Q4H PRN Administration Pain, Severe (Pain Scale 7-10) Protocol Medical Decision Making Medical Decision Making MDM Narrative: Patient is diabetic with nonhealing wound of the right foot with bone exposed with history of osteomyelitis will admit patient for amputation IV antibiotics to continue patient states has taken penicillin before in other hospital pharmacy will confirm whether patient can receive Zosyn or not Differential Diagnosis Differential Diagnoses: The differential diagnosis associated with the presentation includes Osteomyelitis Admission/Observation Consideration of admission/observation: Escalation of care including admission/observation considered Consult Healthcare Provider Management of the patient was discussed with: Hospitalist Lab Data [facility] Lab Attestation statement: I reviewed the patient's lab results. 11/23/23 07:51 11/23/23 07:51 Labs: Lab Results 11/21/23 Range/Units 16:19 WBC 13.8 H (4.8-10.8) X10*3/uL RBC 5.05 (4.60-5.80) X10*6/uL Hgb 13.7 L (14.0-18.0) g/dl Hct 41.8 L (42.0-52.0) % MCV 82.8 (80.0-98.0) fL MCH 27.1 (27.0-33.0) pg MCHC 32.8 (31.0-36.0) g/dl RDW 15.8 (11.0-16.0) % Plt Count 423 H (160-400) X10*3/uL MPV 8.7 L (9.4-12.4) fL Immature Gran % (Auto) 0.4 (0.0-0.4) % Neut % (Auto) 76.1 H (45-73) % Lymph % (Auto) 17.1 L (20-40) % [place] % (Auto) 5.3 (2-11) % Eos % (Auto) 0.5 (0-4) % Baso % (Auto) 0.6 (0-2) % Lymph # (Auto) 2.4 (1.2-4.9) X10*3/uL [place] # (Auto) 0.7 (0.1-1.2) X10*3/uL Eos # (Auto) 0.1 (0.0-0.4) X10*3/uL Baso # (Auto) 0.1 (0.0-0.2) X10*3/uL Abs Immat Gran (auto) 0.06 H (0.00-0.03) X10*3/uL Absolute Neuts (auto) 10.5 H (2.0-8.3) x10*3/uL Absolute Nucleated RBC 0.000 (0.0-0.012) X10*3/uL Nucleated RBC % (auto) 0.0 (0.0-0.2) /100WBC Sodium 136 (135-145) mmol/L Potassium 4.6 (3.3-5.1) mmol/L Chloride 103 (96-108) mmol/L Carbon Dioxide 23 (22-29) mmol/L Anion Gap 15 (12-20) BUN 10 (9-16) mg/dL Creatinine 0.88 (0.5-1.4) mg/dL Estim Creat Clear Calc 101.5 Estimated GFR > 60 Random Glucose 198 H (60-115) mg/dL Lactic Acid 1.2 (0.5-2.0) mmol/L Calcium 8.9 (8.4-10.2) mg/dL Total Bilirubin 0.3 (0.0-1.0) mg/dL AST 20 (5-37) U/L ALT 25 (0-40) U/L Alkaline Phosphatase 63 (39-117) U/L Total Protein 7.2 (6.5-8.0) g/dL Albumin 3.4 L (3.5-5.0) g/dL Independent Interpretation I performed an independent interpretation of an: Plain X-Ray Radiology Impression Discussion of test interpretation with radiology: I have reviewed the radiologist's reading. Discharge Plan Discharge Clinical Impression: Chronic foot ulcer Qualifiers: Laterality: right Non-pressure ulcer stage: unspecified non-pressure ulcer stage Qualified Code(s): L97.519 - Non-pressure chronic ulcer of other part of right foot with unspecified severity Patient Disposition: Admitted As Inpatient Interventions: Admission Worksheet (ED) Last Done: 11/22/23 06:51 Discharge Date/Time: 11/22/23 08:40
--- NOTE | 2023-11-21 16:08 | PC.NURSE ---
pt presenting to ED from home via EMS. pt has right foot infection from wound, was getting ABX through PICC on right side X1 month (ABX finished this past sat). pts doctor called him and said his WBC is high and he has a low grade fever so he should go to ER for further eval. pt has bilat wounds to both feet. pt is alert and oriented, breathing even and unlabored, skin WNL. pt reports chronic pain in both feet, 1/10 at this time while at rest. pt denies cough, N/V/D, SOB, CP. PICC to right arm. IV in left AC placed by EMS.
[2023-11-21 16:24] LABS: MANUAL DIFF FLAG NO
[2023-11-21 16:37] LABS: Basophils Absolute Auto 0.1 X10*3/uL (0.0-0.2); Basophils Percent Auto 0.6 % (0-2); Eosinophils Absolute Auto 0.1 X10*3/uL (0.0-0.4); Eosinophils Percent Auto 0.5 % (0-4); Hematocrit 41.8 % (42.0-52.0); Hemoglobin 13.7 g/dl (14.0-18.0); Imm Gran Abs Auto 0.06 X10*3/uL (0.00-0.03); Imm Gran Pct Auto 0.4 % (0.0-0.4); Lymphocytes Absolute Auto 2.4 X10*3/uL (1.2-4.9); Lymphocytes Percent Auto 17.1 % (20-40); Mean Corpuscular HGB Conc 32.8 g/dl (31.0-36.0); Mean Corpuscular Hemoglobin 27.1 pg (27.0-33.0); Mean Corpuscular Volume 82.8 fL (80.0-98.0); Mean Platelet Volume 8.7 fL (9.4-12.4); Monocytes Absolute Auto 0.7 X10*3/uL (0.1-1.2); Monocytes Percent Auto 5.3 % (2-11); Neutrophils Absolute Auto 10.5 x10*3/uL (2.0-8.3); Neutrophils Percent Auto 76.1 % (45-73); Platelet Count 423 X10*3/uL (160-400); Red Blood Count 5.05 X10*6/uL (4.60-5.80); Red Cell Distribution Width 15.8 % (11.0-16.0); White Blood Count 13.8 X10*3/uL (4.8-10.8)
[2023-11-21 16:40] LABS: Lactic Acid 1.2 mmol/L (0.5-2.0)
[2023-11-21 16:58] LABS: Alanine Aminotransferase 25 U/L (0-40); Albumin Level 3.4 g/dL (3.5-5.0); Alkaline Phosphatase 63 U/L (39-117); Anion Gap 15 (12-20); Aspartate Amino Transferase 20 U/L (5-37); Bilirubin Total 0.3 mg/dL (0.0-1.0); Blood Urea Nitrogen 10 mg/dL (9-16); Calcium 8.9 mg/dL (8.4-10.2); Carbon Dioxide 23 mmol/L (22-29); Chloride 103 mmol/L (96-108); Creatinine Clr Calc Pharmacy 101.5; Estimated Glomerular Filt Rate > 60; Glucose Random 198 mg/dL (60-115); Potassium 4.6 mmol/L (3.3-5.1); Sodium 136 mmol/L (135-145); Total Protein 7.2 g/dL (6.5-8.0)
[2023-11-21] MEDS: 0.9 % Sodium Chloride 1,000 ML 999 ML IV (17:17)
[2023-11-21] MEDS: vancomycin/NS 2,000 MG/500 ML PLAST..BAG 250 MG IV (17:17)
--- NOTE | 2023-11-21 17:26 | HE.PHANOTE ---
Patient reported anaphylaxis to amoxicillin when he was a child. Patient reported he was given penicillin while at another hospital most likely [facility]. Contacted [facility], and patient last at [facility] 11/2022 where he was given Cefazolin and Vancomycin, and not an immediate PCN. Due to allergy recommended using cefepime instead of zosyn, provider agreed.
--- NOTE | 2023-11-21 17:28 | P.HPHOSP_ITS ---
History of Present Illness Date of Service: 11/21/23 Attending physician on admission: Beata Dobson Chief Complaint: Worsening chronic right foot infection Pt is a 48-year-old male with a PMH significant for?HTN, [id number] diabetes type 2, GERD, hx of osteomyelitis with multiple toe amputations, hx of MRSA and group C Streptococcus bacteremia, PTSD, and anxiety/depression who presents to the ED from infectious disease office for evaluation of worsening right chronic non-healing diabetic foot ulcers. Pt was recently admitted to the hospital on 10/04-10/09 for acute osteomyelitis of right foot and treated with IV vanco and cefepime, discharged on daptomycin IV up through 11/17/2023. Earlier today patient presented to infectious disease for follow-up appointment and was noted to have worsening wounds and exposed bone on right foot. Patient himself states that he is ?feeling fine? without much of an increase in pain. Patient denies fever, chills, nausea, vomiting, abdominal pain. No chest pain/pressure, palpitations. Denies shortness of breath. Patient states that he has been adherent to his medications and his outpatient appointments. Has VNA services twice a week and goes to wound care 3 times a week. In the ED pt was tahycardic up to 91, vitals otherwise WNL. Labs were significant for leukocytosis 13.8, otherwise grossly unremarkable. Stable H& H. No electrolyte abnormalities. Renal function baseline. Hepatic function baseline. Lactic acid WNL at 1.2. Pt was treated with vancomycin and IVF. Pt will be admitted to the hospital for treatment and further evaluation of acute on chronic osteomyelitis of right foot in a patient with chronic nonhealing diabetic foot ulcers. Review of Systems 2 Review of Systems: Negative except for that stated in the [facility] Medical History Mood disorder Anxiety Acute osteomyelitis of left foot Nausea and vomiting Marijuana smoker MRSA (methicillin resistant Staphylococcus aureus) GERD (gastroesophageal reflux disease) Bacteremia due to Streptococcus Posttraumatic stress disorder Staphylococcus aureus bacteremia 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 Bacterial infection due to Streptococcus, group C Acidosis, lactic Cellulitis Right foot infection Anxiety Diabetes type 2, controlled Surgical History History of amputation (12/11/22) History of partial amputation of toe (10/11/22) History of incision and drainage History of laparoscopic cholecystectomy Social History Household Members: None Housing: Apartment Housing Other:: refused to answer Do you presently have visiting nurse or other home services: Yes Unable to assess alcohol history related to: Refusing to respond Alcohol intake: current Alcohol intake frequency: holidays/special occasions only Alcohol type: wine Comment: refuses alarms, camera. Education provided about safety Patient Tobacco Use Status: Current everyday Tobacco user Tobacco use type: Cigarette Cigarette Packs Per Day: 0.5 Cigarettes Per Day: 10.0 Years Smoked: 36 years Smoked in Last 30 Days: Yes Patient Interested in Nicotine Replacement: Yes Patient Given Instructions on How to Stop Smoking: No (declines) Second Hand Smoke Exposure: No Use of substances other than those prescribed or required for medical reasons: Yes Substance Use Type: Marijuana Have you been hit, kicked, punched, or otherwise hurt by someone within the past year? If so, by whom?: No Do you feel safe in your current relationship?: No Current Relationship Is there a partner from a previous relationship who is making you feel unsafe now?: No Are you made to feel afraid or neglected: No Advance Directives: No Advance Directives Information Provided: No Do you have thoughts of harming others: None Do you have a plan to hurt others: No Plan Recently lost weight without trying: No Nutrition Risks: No Nutritional Risk service: No Current occupational status: disabled Meds Allergies Allergy/AdvReac Type Severity Reaction Status Date / Time amoxicillin [AMOXICILLIN] Allergy Severe ANAPHYLAXIS Verified 11/21/23 11:27 oxycodone [From Tylox] Allergy Intermediate Itching Verified 11/21/23 11:27 hydrocodone [HYDROCODONE] Allergy Unknown UNKNOWN Verified 11/21/23 11:27 acetaminophen [From Tylox] Allergy Itching Verified 11/21/23 16:05 Active Medications: Current Medications Vancomycin HCl (Vancomycin/Ns) 2,000 mg in 500 mls @ 250 mls/hr IV ONCE ONE Stop: 11/21/23 18:48 Last Admin: 11/21/23 17:17 Dose: 250 mls/hr Sodium Chloride (Ns) 1,000 mls @ 999 mls/hr IV .Q1H1M ONE Stop: 11/21/23 17:50 Last Admin: 11/21/23 17:17 Dose: 999 mls/hr Cefepime HCl 2 gm/ Sodium (Chloride) 50 mls @ 100 mls/hr IV ONCE ONE Stop: 11/21/23 17:48 Home Medications Medication Instructions Recorded Confirmed Last Taken Type cholecalciferol (vitamin D3) 50 50 mcg PO DAILY 11/04/21 11/21/23 10/03/23 History mcg (2,000 unit) capsule gabapentin 100 mg capsule 200 mg PO TID 10/06/22 11/21/23 11/21/23 History metformin 500 mg tablet 500 mg PO BID 10/06/22 11/21/23 10/03/23 History ascorbic acid (vitamin C) 500 mg 500 mg PO DAILY 11/29/22 11/21/23 10/03/23 History tablet dulaglutide 1.5 mg/0.5 mL 1.5 mg subcut FR 11/29/22 11/21/23 10/03/23 History subcutaneous pen injector (Trulicity) acetaminophen 500 mg tablet 500 mg PO TID PRN Pain 11/21/23 11/21/23 11/21/23 History naproxen 500 mg tablet 500 mg PO BID PRN Pain 11/21/23 11/21/23 11/21/23 History Physical Exam 2 Vital Signs and Narrative: Vital Signs: Last Vital Signs Temp 98.9 F 11/21/23 16:06 Pulse 76 11/21/23 16:06 Resp 18 11/21/23 16:06 BP 104/63 11/21/23 16:06 Pulse Ox 100 11/21/23 16:06 O2 Del Method Room Air 11/21/23 16:06 BMI result Body Mass Index 26.9 Constitutional: Alert, in no acute distress. Mental Status: Oriented to person, place and time. Eyes: Pupils are equal, round, and reactive to light. Ear, Nose, and Throat: Oropharynx clear, mucous membranes moist. Ears and nose without deformities. Trachea midline. Respiratory: Clear to auscultation bilaterally. No wheezing, rales, or rhonchi. Cardiovascular: S1, S2 regular. No murmurs, rubs, or gallops. Gastrointestinal: Abdomen soft, non-tender, non-distended. Normal bowel sounds. Neurologic: Cranial nerves II-XII are grossly intact bilaterally. No focal neurological deficits. Moves all extremities spontaneously. Skin: Warm, dry. Musculoskeletal: No cyanosis or clubbing. Extremities: No edema. Foul-smelling discharge from right foot. Right and left foot as pictured below. Psychiatric: Occasionally agitated but redirectable. Results Labs 11/21/23 16:19 11/22/23 05:05 Labs: Laboratory Results - last 24 hr 11/21/23 16:19 MCV 82.8 MCH 27.1 MCHC 32.8 RDW 15.8 Plt Count 423 H MPV 8.7 L Immature Gran % (Auto) 0.4 Neut % (Auto) 76.1 H Lymph % (Auto) 17.1 L [place] % (Auto) 5.3 Eos % (Auto) 0.5 Baso % (Auto) 0.6 Lymph # (Auto) 2.4 [place] # (Auto) 0.7 Eos # (Auto) 0.1 Baso # (Auto) 0.1 Abs Immat Gran (auto) 0.06 H Absolute Neuts (auto) 10.5 H Absolute Nucleated RBC 0.000 Nucleated RBC % (auto) 0.0 Anion Gap 15 Estim Creat Clear Calc 101.5 Estimated GFR > 60 Random Glucose 198 H Lactic Acid 1.2 Calcium 8.9 Total Bilirubin 0.3 AST 20 ALT 25 Alkaline Phosphatase 63 Total Protein 7.2 Albumin 3.4 L Assessment and Plan (1) Acute on chronic osteomyelitis: Status: Acute Plan Pt is a 48-year-old male with a PMH significant for?HTN, [id number] diabetes type 2, GERD, hx of osteomyelitis with multiple toe amputations, hx of MRSA and group C Streptococcus bacteremia, PTSD, and anxiety/depression who presents to the ED from infectious disease office for evaluation of worsening right chronic non-healing diabetic foot ulcers. Pt will be admitted to the hospital for treatment and further evaluation of acute on chronic osteomyelitis of right foot in a patient with chronic nonhealing diabetic foot ulcers. Acute on chronic osteomyelitis of right foot inpatient with chronic nonhealing diabetic foot ulcers Patient does not meet sepsis criteria: Leukocytosis but no tachycardia (HR of 91 was taken at the office, not while at the ED), tachypnea, fever while in the ED; lactic acid WNL at 1.2 Patient given IVF and started on broad-spectrum antibiotics in the ED Will treat with vancomycin and cefepime Vascular surgery consult Follow cultures [id number] diabetes type 2 Hold metformin, Trulicity Continue glipizide Will place on sliding scale insulin, diabetic diet Peripheral neuropathy Continue gabapentin Full Code Attending:?Dr. Dobson DVT Prophylaxis: Lovenox Pt will require a hospitalization of at least two nights for treatment of?acute on chronic osteomyelitis of right foot in a patient with chronic nonhealing diabetic foot ulcers. Given patient's worsening foot ulcers despite recent hospitalization and outpatient treatment with IV antibiotics, patient will require hospitalization for administration of IV antibiotics and likely amputation. Quality Stroke Does the patient have a stroke diagnosis?: No VTE Prior VTE?: No VTE Risk Level:: Medical - moderate - high VTE Device Contraindication: Treatment Not Indicated VTE Drug Contraindication: N/A - Med Ordered
--- NOTE | 2023-11-21 17:32 | PC.NURSE ---
Pt presents to dept for evaluation of left foot wound. Pt has wounds to both feet. Left foot s/p amputation of the 3rd 4th and 5th toes. There is a open tunneling area at the ball of the foot slough surrounding perimeter, No granulation tissue visible, foul odor noted.. Area of eschar of the second toe. no active bleeding or drainage. from any open area on left foot. Right foot: s/p amputation of the first and second toes. dressing noted to malodorous and saturated with sero-sanguineous drainage. on the dorsal surface of foot there is a 1.25in round open area with 70% slough and 30% granulation tissue. no active bleeding. plantar surface of the foot is completely open with bone exposed. both feet were cleansed with NS patted dry, covered with nonstick and kerlix, secured with tape.
--- NOTE | 2023-11-21 19:11 | PHA.MEDREC ---
Pharmacy Consult ? Medication Reconciliation Pharmacy has completed the medication reconciliation. Confirmed medication with patient and claim history. He is not a good historian. Used discharge packet from 10/26/23 to verify Glipizide. Reports that he only takes Metformin and Glipizide when he eats bad stuff
[2023-11-21] MEDS: Enoxaparin Sodium 40 MG/0.4 ML SYRINGE SUBCUT (19:14)
--- NOTE | 2023-11-21 19:17 | PHA.PROG ---
Admission Date/Time: November 21, 2023 18:43 Indication: Bone and Joint Weight in k.554 kg Adjusted body weight in K.44 jg Waddy body weight in K.7 kg Obesity Dosing Indication % IBW: 116% Serum Creatinine - Last 168 Hours 11/21/23 16:19 Creatinine 0.88 Estimated CrCl and GFR - Last 168 Hours 11/21/23 16:19 Estim Creat Clear Calc 101.5 Estimated GFR > 60 Vancomycin Loading Dose: 2000 mg Current Vancomycin Dosing Regimen: 750 mg Q8H Date and Time for next Vancomycin Level to be drawn: 11/22 @ 1600 Pharmacist Comments on Vancomycin Plan: patient received an adequate load dose in the ER on 11/21 @ 1717 Patient was recently admitted in October where he received vancomycin 750 mg Q8H with similar renal function and had therapeutic vancomycin levels at 15.5 and 14. Will start patient on vancomycin 750 mg Q8H due to successful dosing on previous admission as well as the current predicted AUC of 504 with a trough of 17 Level will be drawn prior to Pharmacy will monitor renal function daily. Anisa Edwards PharmD Vancomycin dosing will take advantage of [employer] as a clinical decision support tool that uses Bayesian modeling to calculate individual patient's pharmacokinetic parameters and forecast the patient's drug concentration time course with the target goal AUC 24 range of 400 - 600 mg/L/hr.
[2023-11-21] MEDS: cefEPime HCl 2 GM in 0.9 % Sodium Chloride 50 ML IV (20:10)
[2023-11-21 21:18] LABS: Glucose, Whole Blood 204 mg/dL (60-115)
[2023-11-21] MEDS: Insulin Lispro 100 UNIT/ML 3 ML VIAL SUBCUT (21:23)
[2023-11-21] MEDS: Gabapentin 100 MG CAPSULE 200 MG PO (21:24)
--- NOTE | 2023-11-21 21:35 | PC.NURSE ---
pt medicated per MAR, 4 units lispro given for FSBS 204
[2023-11-22] VITALS (22 sets, daily range): BP systolic 96–130; BP diastolic 59–96; PULSE 68–110; RESP 12–20; TEMP 36.1–37.1; O2SAT 93–100; BMI 26.8
[2023-11-22] MEDS: vancomycin HCL 750 MG in 0.9 % Sodium Chloride 250 ML 265 MG IV ×3 (02:09→18:29)
[2023-11-22] MEDS: 0.9 % Sodium Chloride Flush 3 ML SYRINGE IVFLUSH ×3 (02:10→19:58)
[2023-11-22 06:25] LABS: Creatinine Clr Calc Pharmacy 122.4; Estimated Glomerular Filt Rate > 60
[2023-11-22 07:04] LABS: Glucose, Whole Blood 127 mg/dL (60-115)
[2023-11-22] MEDS: cefEPime HCl 2 GM in 0.9 % Sodium Chloride 50 ML IV ×2 (07:24→20:02)
[2023-11-22] MEDS: Cholecalciferol (Vitamin D3) 25 MCG TABLET 50 MCG PO (09:31)
[2023-11-22] MEDS: Ascorbic Acid 500 MG TABLET PO (09:31)
[2023-11-22] MEDS: Gabapentin 100 MG CAPSULE 200 MG PO ×3 (09:31→19:58)
[2023-11-22] MEDS: glipiZIDE 5 MG TABLET PO (09:31)
--- NOTE | 2023-11-22 10:19 | PM.CNGS ---
History of Present Illness Consult details Consult date: 11/22/23 Reason for consult: wound care Narrative: Extremely complex 48-year-old gentleman who presents to the hospital with nonhealing ulcers. He actually had seen Infectious Disease yesterday. He completed a 6 week cycle of daptomycin. It appears to have not done well. He was extremely rude and offensive to the Infectious Disease office and they have nothing further to offer. He now presents to the hospital for further evaluation. Review of Systems Review of Systems: Yes all other systems are reviewed and are negative Constitutional: Constitutional: Reports no additional constitutional complaints ENT: Reports Normal hearing present Cardiovascular: Cardiovascular: Denies chest pain, Denies chest pain at rest, Denies chest pain with activity and Denies pedal edema Respiratory: Respiratory: Denies cough Gastrointestinal: Gastrointestinal: Denies abdominal pain Musculoskeletal: Musculoskeletal: Denies abnormal gait, Denies muscle cramps and Denies radiating pain into limb Integumentary/Breasts: Skin/Breast: Denies skin ulcer and Denies wounds Neurologic: Reports Normal hearing present and Denies abnormal gait Psychiatric: Psychiatric: Reports no additional psychiatric complaints PMFSH Past Medical History Medical History Mood disorder Anxiety Acute osteomyelitis of left foot Nausea and vomiting Marijuana smoker MRSA (methicillin resistant Staphylococcus aureus) GERD (gastroesophageal reflux disease) Bacteremia due to Streptococcus Posttraumatic stress disorder Staphylococcus aureus bacteremia 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 Bacterial infection due to Streptococcus, group C Acidosis, lactic Cellulitis Right foot infection Anxiety Diabetes type 2, controlled Surgical History Surgical History History of amputation (12/11/22) History of partial amputation of toe (10/11/22) History of incision and drainage History of laparoscopic cholecystectomy Social History Social History Household Members: None Housing: Apartment Housing Other:: refused to answer Do you presently have visiting nurse or other home services: Yes Unable to assess alcohol history related to: Refusing to respond Alcohol intake: current Alcohol intake frequency: holidays/special occasions only Alcohol type: wine Comment: refuses alarms, camera. Education provided about safety Patient Tobacco Use Status: Current everyday Tobacco user Tobacco use type: Cigarette Cigarette Packs Per Day: 0.5 Cigarettes Per Day: 10.0 Years Smoked: 36 years Smoked in Last 30 Days: Yes Patient Interested in Nicotine Replacement: Yes Patient Given Instructions on How to Stop Smoking: No (declines) Second Hand Smoke Exposure: No Use of substances other than those prescribed or required for medical reasons: Yes Substance Use Type: Marijuana Have you been hit, kicked, punched, or otherwise hurt by someone within the past year? If so, by whom?: No Do you feel safe in your current relationship?: No Current Relationship Is there a partner from a previous relationship who is making you feel unsafe now?: No Are you made to feel afraid or neglected: No Advance Directives: No Advance Directives Information Provided: No Do you have thoughts of harming others: None Do you have a plan to hurt others: No Plan Recently lost weight without trying: No Nutrition Risks: No Nutritional Risk service: No Current occupational status: disabled Meds Allergies Allergy/AdvReac Type Severity Reaction Status Date / Time amoxicillin [AMOXICILLIN] Allergy Severe ANAPHYLAXIS Verified 11/21/23 11:27 oxycodone [From Tylox] Allergy Intermediate Itching Verified 11/21/23 11:27 hydrocodone [HYDROCODONE] Allergy Unknown UNKNOWN Verified 11/21/23 11:27 acetaminophen [From Tylox] Allergy Itching Verified 11/21/23 16:05 Active Medications: Current Medications Ascorbic Acid (Ascorbic Acid 500 Mg Tablet) 500 mg PO DAILY [facility] Last Admin: 11/22/23 09:31 Dose: 500 mg Benzonatate (Benzonatate 100 Mg Capsule) 100 mg PO TID PRN PRN Reason: Cough Dextrose (Dextrose 50 % 25 Gm/50 Ml Syringe) 25 gm IVPUSH Q15M PRN; Protocol PRN Reason: per Hypoglycemia Standing Ord. Docusate Sodium (Docusate Sodium 100 Mg Capsule) 100 mg PO DAILY PRN PRN Reason: Constipation Enoxaparin Sodium (Enoxaparin Sodium 40 Mg/0.4 Ml Syringe) 40 mg SUBCUT Q24H [facility] Last Admin: 11/21/23 19:14 Dose: 40 mg Gabapentin (Gabapentin 100 Mg Capsule) 200 mg PO TID [facility] Last Admin: 11/22/23 09:31 Dose: 200 mg Glipizide (Glipizide 5 Mg Tablet) 5 mg PO DAILY [facility] Last Admin: 11/22/23 09:31 Dose: 5 mg Glucose (Glucose Gel 15 Gm Gel..Gram.) 15 gm PO Q15M PRN; Protocol PRN Reason: per Hypoglycemia Standing Ord. Cefepime HCl 2 gm/ Sodium (Chloride) 50 mls @ 100 mls/hr IV Q12H [facility] Last Infusion: 11/22/23 09:23 Dose: Infused Vancomycin HCl 750 mg/ Sodium (Chloride) 265 mls @ 265 mls/hr IV Q8H [facility] Last Admin: 11/22/23 09:27 Dose: 265 mls/hr Insulin Human Lispro (Insulin Lispro 100 Unit/Ml 3 Ml Vial) 0 unit SUBCUT QIDACHS [facility]; Protocol Last Admin: 11/22/23 07:10 Dose: Not Given Melatonin (Melatonin 3 Mg Tablet) 6 mg PO BEDTIME PRN PRN Reason: Insomnia Naproxen (Naproxen 500 Mg Tablet) 500 mg PO BID PRN PRN Reason: Pain, Mild (Pain Scale 1-3) Ondansetron HCl (Ondansetron Hcl 4 Mg/2 Ml Vial) 4 mg IVPUSH Q8H PRN PRN Reason: Nausea and Vomiting Pharmacy Consult (Consult Rx Vancomycin Dosing) 1 each MISCELLANE DAILY PRN PRN Reason: Consult order Sodium Chloride (0.9 % Sodium Chloride Flush 3 Ml Syringe) [address] [facility] Last Admin: 11/22/23 07:25 Dose: 3 ml Vitamin D (Cholecalciferol (Vitamin D3) 25 Mcg Tablet) 50 mcg PO DAILY [facility] Last Admin: 11/22/23 09:31 Dose: 50 mcg Home Medications Medication Instructions Recorded Confirmed Last Taken Type cholecalciferol (vitamin D3) 50 50 mcg PO DAILY 11/04/21 11/21/23 10/03/23 History mcg (2,000 unit) capsule gabapentin 100 mg capsule 200 mg PO TID 10/06/22 11/21/23 11/21/23 History metformin 500 mg tablet 500 mg PO BID 10/06/22 11/21/23 10/03/23 History ascorbic acid (vitamin C) 500 mg 500 mg PO DAILY 11/29/22 11/21/23 10/03/23 History tablet dulaglutide 1.5 mg/0.5 mL 1.5 mg subcut FR 11/29/22 11/21/23 10/03/23 History subcutaneous pen injector (Trulicity) acetaminophen 500 mg tablet 500 mg PO TID PRN Pain 11/21/23 11/21/23 11/21/23 History naproxen 500 mg tablet 500 mg PO BID PRN Pain 11/21/23 11/21/23 11/21/23 History Physical Exam Vital Signs: Vital Signs: Last Vital Signs Temp 98.2 F 11/22/23 07:52 Pulse 68 11/22/23 07:52 Resp 18 11/22/23 07:52 BP 112/66 11/22/23 07:52 Pulse Ox 98 11/22/23 07:52 O2 Del Method Room Air 11/22/23 07:52 BMI result Body Mass Index 26.8 Const: General: cooperative, healthy appearing and comfortable Orientation/consciousness: oriented to person, oriented to place and oriented to time HEENT: Head: Yes normal to inspection Neck: Neck: Yes normal visual inspection Carotids: no bruits Chest: Chest palpation & inspection: normal inspection of the chest Resp: Effort & Inspection: normal respiratory effort and able to speak in complete sentences Auscultation: clear to auscultation bilaterally, no crackles, no rales, no rhonchi and no wheezes Cardio: Rate: regular rate Rhythm: regular rhythm Heart sounds: S1 normal heart sound present and S2 normal heart sound present Bruits: no carotid bruits Peripheral pulses: Peripheral pulses 2+ throughout GI: Inspection: Yes normal to inspection Skin: Other: Extremely large amputation site opening foot wound along with large wound on the dorsum of the foot with exposed bone. Wounds: no wounds Hair: normal Neuro: General: oriented to person, oriented to place and oriented to time Cranial nerves: Yes CN's II-XII intact bilaterally and Yes Normal hearing present Cognition (Neuro): normal cognition Motor exam (neuro): 5/5 motor strength present throughout Extrem: Other: venous exam: No significant superficial varicosities or spider telangiectasias, minimal edema General: No clubbing, No cyanosis and No edema Psych: Appearance: grossly normal Mental Status: mental status grossly normal Speech and movement: Normal speech and movement present Results Labs 11/21/23 16:19 11/22/23 05:05 Labs: Abnormal lab results 11/21/23 11/21/23 11/22/23 Range/Units 16:19 21:15 07:01 WBC 13.8 H (4.8-10.8) X10*3/uL Hgb 13.7 L (14.0-18.0) g/dl Hct 41.8 L (42.0-52.0) % Plt Count 423 H (160-400) X10*3/uL MPV 8.7 L (9.4-12.4) fL Neut % (Auto) 76.1 H (45-73) % Lymph % (Auto) 17.1 L (20-40) % Abs Immat Gran (auto) 0.06 H (0.00-0.03) X10*3/uL Absolute Neuts (auto) 10.5 H (2.0-8.3) x10*3/uL POC Glucose 204 H 127 H (60-115) mg/dL Random Glucose 198 H (60-115) mg/dL Albumin 3.4 L (3.5-5.0) g/dL Short CBC 11/21/23 Range/Units 16:19 WBC 13.8 H (4.8-10.8) X10*3/uL Hgb 13.7 L (14.0-18.0) g/dl Hct 41.8 L (42.0-52.0) % Plt Count 423 H (160-400) X10*3/uL BMP 11/21/23 11/22/23 16:19 05:05 Sodium 136 Potassium 4.6 Chloride 103 Carbon Dioxide 23 BUN 10 Creatinine 0.88 0.73 Calcium 8.9 Liver Function 11/21/23 Range/Units 16:19 Total Bilirubin 0.3 (0.0-1.0) mg/dL AST 20 (5-37) U/L ALT 25 (0-40) U/L Alkaline Phosphatase 63 (39-117) U/L Albumin 3.4 L (3.5-5.0) g/dL All other labs normal. Assessment and Plan (1) Diabetic infection of right foot: Status: Acute Plan In short patient will require right below-knee amputation. Unfortunately there is not enough skin and with exposed bone a transmetatarsal amputation would not be able to be created. In addition he has no longer a candidate for additional antibiotics. I did spend an extensive amount of time explaining risks benefits complications of the procedure and future of a prosthetic with him. He is extremely upset. He did get violent. I did have to call in additional nursing staff to monitor during his entire visit. I do not feel safe visiting him alone in the future. I did review his CT scan and gave him my preliminary interpretation as there is no official read as of yet. Once again he will require right below-knee amputation and he has agreed to move forward. Thank you for allowing us to assist in his care. If there are any questions or concerns please do not hesitate to contact us. Procedures Date of Service Date of Service: 11/22/23
--- NOTE | 2023-11-22 10:43 | MHC.SHP ---
Pre-Procedural Eval Section A - 24 Hr Update-Section A only Date of Service: 11/22/23 The patient is an INPATIENT: Yes Changes since office visit: Yes Patient answered all questions The patient has been examined within 24 hours of the surgical procedure. The History & Physical has been completed within 30 days and I have reviewed it.: Yes Section B - Complete if H&P > 30 days Chief Complaint: Worsening Chronic right foot ulcer Allergies: Allergies Allergy/AdvReac Type Severity Reaction Status Date / Time amoxicillin [AMOXICILLIN] Allergy Severe ANAPHYLAXIS Verified 11/21/23 11:27 oxycodone [From Tylox] Allergy Intermediate Itching Verified 11/21/23 11:27 hydrocodone [HYDROCODONE] Allergy Unknown UNKNOWN Verified 11/21/23 11:27 acetaminophen [From Tylox] Allergy Itching Verified 11/21/23 16:05 Plan I have reviewed the history and physical and performed a pertinent physical examination on my patient. No changes have occurred unless specified. Time Spent With Patient Time: Total time managing care of this patient today ____ minutes.
--- NOTE | 2023-11-22 11:24 | P.PNIM_ITS ---
Subjective Subjective Date of Service: 11/22/23 Interval History: Seen and evaluated this morning anxious about the surgery asking for a 2nd opinion Review of Systems Review of Systems: Yes all other systems are reviewed and are negative Physical Exam 2 Vital Signs: Vital Signs: Last Vital Signs Temp 98.2 F 11/22/23 07:52 Pulse 68 11/22/23 07:52 Resp 18 11/22/23 07:52 BP 112/66 11/22/23 07:52 Pulse Ox 98 11/22/23 07:52 O2 Del Method Room Air 11/22/23 07:52 BMI result Body Mass Index 26.8 Const: Other: Constitutional : Awake, interactive, anxious Neck : Normal inspection, Supple Cardiovascular : RRR, no JVP, no lower extremity edema Respiratory : good bilateral air entry, no crackles, wheezes or rhonchi Gastrointestinal: soft, lax, Normal bowel sounds, Non tender Skin : Warm, Dry, multiple amputated toes, open wounds with exposed bones and tendons, bad Odor, drainage. Neurological : Alert & oriented x3, No focal deficit Objective Data Active Medications Ascorbic Acid (Ascorbic Acid 500 Mg Tablet) 500 mg PO DAILY [facility] Last Admin: 11/22/23 09:31 Dose: 500 mg Documented By: ROSSANA Benzonatate (Benzonatate 100 Mg Capsule) 100 mg PO TID PRN PRN Reason: Cough Dextrose (Dextrose 50 % 25 Gm/50 Ml Syringe) 25 gm IVPUSH Q15M PRN; Protocol PRN Reason: per Hypoglycemia Standing Ord. Docusate Sodium (Docusate Sodium 100 Mg Capsule) 100 mg PO DAILY PRN PRN Reason: Constipation Enoxaparin Sodium (Enoxaparin Sodium 40 Mg/0.4 Ml Syringe) 40 mg SUBCUT Q24H [facility] Last Admin: 11/21/23 19:14 Dose: 40 mg Documented By: BRIDGET Gabapentin (Gabapentin 100 Mg Capsule) 200 mg PO TID [facility] Last Admin: 11/22/23 09:31 Dose: 200 mg Documented By: ROSSANA Glipizide (Glipizide 5 Mg Tablet) 5 mg PO DAILY [facility] Last Admin: 11/22/23 09:31 Dose: 5 mg Documented By: ROSSANA Glucose (Glucose Gel 15 Gm Gel..Gram.) 15 gm PO Q15M PRN; Protocol PRN Reason: per Hypoglycemia Standing Ord. Cefepime HCl 2 gm/ Sodium (Chloride) 50 mls @ 100 mls/hr IV Q12H [facility] Last Infusion: 11/22/23 09:23 Dose: Infused Documented By: ROSSANA Vancomycin HCl 750 mg/ Sodium (Chloride) 265 mls @ 265 mls/hr IV Q8H [facility] Last Infusion: 11/22/23 10:28 Dose: Infused Documented By: ROSSANA Insulin Human Lispro (Insulin Lispro 100 Unit/Ml 3 Ml Vial) 0 unit SUBCUT QIDACHS [facility]; Protocol Last Admin: 11/22/23 07:10 Dose: Not Given Documented By: EVANGELINA Non-Admin Reason: No Insulin Coverage Melatonin (Melatonin 3 Mg Tablet) 6 mg PO BEDTIME PRN PRN Reason: Insomnia Naproxen (Naproxen 500 Mg Tablet) 500 mg PO BID PRN PRN Reason: Pain, Mild (Pain Scale 1-3) Ondansetron HCl (Ondansetron Hcl 4 Mg/2 Ml Vial) 4 mg IVPUSH Q8H PRN PRN Reason: Nausea and Vomiting Pharmacy Consult (Consult Rx Vancomycin Dosing) 1 each MISCELLANE DAILY PRN PRN Reason: Consult order Sodium Chloride (0.9 % Sodium Chloride Flush 3 Ml Syringe) [facility] Admin: 11/22/23 07:25 Dose: 3 ml Documented By: EVANGELINA Vitamin D (Cholecalciferol (Vitamin D3) 25 Mcg Tablet) 50 mcg PO DAILY [facility] Last Admin: 11/22/23 09:31 Dose: 50 mcg Documented By: ROSSANA Labs 11/21/23 16:19 11/22/23 05:05 Labs: Laboratory Results - last 24 hr 11/21/23 11/21/23 11/22/23 16:19 21:15 05:05 MCV 82.8 MCH 27.1 MCHC 32.8 RDW 15.8 Plt Count 423 H MPV 8.7 L Immature Gran % (Auto) 0.4 Neut % (Auto) 76.1 H Lymph % (Auto) 17.1 L Wells % (Auto) 5.3 Eos % (Auto) 0.5 Baso % (Auto) 0.6 Lymph # (Auto) 2.4 Wells # (Auto) 0.7 Eos # (Auto) 0.1 Baso # (Auto) 0.1 Abs Immat Gran (auto) 0.06 H Absolute Neuts (auto) 10.5 H Absolute Nucleated RBC 0.000 Nucleated RBC % (auto) 0.0 Anion Gap 15 Estim Creat Clear Calc 101.5 122.4 Estimated GFR > 60 > 60 POC Glucose 204 H Random Glucose 198 H Lactic Acid 1.2 Calcium 8.9 Total Bilirubin 0.3 AST 20 ALT 25 Alkaline Phosphatase 63 Total Protein 7.2 Albumin 3.4 L 11/22/23 07:01 MCV MCH MCHC RDW Plt Count MPV Immature Gran % (Auto) Neut % (Auto) Lymph % (Auto) Wells % (Auto) Eos % (Auto) Baso % (Auto) Lymph # (Auto) Wells # (Auto) Eos # (Auto) Baso # (Auto) Abs Immat Gran (auto) Absolute Neuts (auto) Absolute Nucleated RBC Nucleated RBC % (auto) Anion Gap Estim Creat Clear Calc Estimated GFR POC Glucose 127 H Random Glucose Lactic Acid Calcium Total Bilirubin AST ALT Alkaline Phosphatase Total Protein Albumin Assessment and Plan (1) Acute on chronic osteomyelitis: Status: Acute (2) Chronic foot ulcer: Status: Acute Plan Pt is a 48-year-old male with a PMH significant for?HTN, [id number] diabetes type 2, GERD, hx of osteomyelitis with multiple toe amputations, hx of MRSA and group C Streptococcus bacteremia, PTSD, and anxiety/depression who presents to the ED from infectious disease office for evaluation of worsening right chronic non-healing diabetic foot ulcers. Pt will be admitted to the hospital for treatment and further evaluation of acute on chronic osteomyelitis of right foot in a patient with chronic nonhealing diabetic foot ulcers. Acute on chronic osteomyelitis of right foot inpatient with chronic nonhealing diabetic foot ulcers pending cultures Continue vancomycin and cefepime Vascular surgery input appreciated; for amputation this afternoon Morphine for pain management [id number] diabetes type 2 Hold metformin, Trulicity and Glipizide sliding scale insulin, diabetic diet Peripheral neuropathy Continue gabapentin Full Code DVT Prophylaxis: Lovenox Pt will require a hospitalization overnight for treatment of?acute on chronic osteomyelitis of right foot in a patient with chronic nonhealing diabetic foot ulcers and the need of surgical intervention Quality Stroke Does the patient have a stroke diagnosis?: No VTE Prior VTE?: No VTE Risk Level:: Medical - moderate - high VTE Device Contraindication: Treatment Not Indicated VTE Drug Contraindication: N/A - Med Ordered
--- NOTE | 2023-11-22 11:50 | PC.NURSE ---
Patient refusing to allow staff to take POC at this time, stating since he is NPO there is no reason to check his blood sugar, pt educated on reason why POC still needs to be checked while NPO but still refuses. Dr. Dobson made aware at this time
[2023-11-22] MEDS: ALPRAZolam 0.25 MG TABLET PO ×2 (12:22→19:19)
--- NOTE | 2023-11-22 15:04 | HO.ANESPROP2 ---
[facility] Active Problems Active Problems: All Active Problems (Updated 11/22/23 @ 08:47 by Kandy Villar) Chronic foot ulcer (Acute) Acute on chronic osteomyelitis (Acute) PAD (peripheral artery disease) (Acute) Diabetic infection of right foot (Acute) Elevated WBC count (Acute) Open wnd foot-complicated (Acute) Positive blood culture (Acute) Past Medical History Medical History (Updated 11/22/23 @ 08:47 by Kandy Villar) Mood disorder Anxiety Nausea and vomiting Acute osteomyelitis of left foot Marijuana smoker MRSA (methicillin resistant Staphylococcus aureus) GERD (gastroesophageal reflux disease) Bacteremia due to Streptococcus Posttraumatic stress disorder Staphylococcus aureus bacteremia 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 Bacterial infection due to Streptococcus, group C Acidosis, lactic Cellulitis Right foot infection Anxiety Diabetes type 2, controlled Family History Family history of problems with anesthesia: No Surgical History Surgical History (Updated 11/22/23 @ 15:04 by Bel Fernandez) History of tonsillectomy History of amputation (12/11/22) History of partial amputation of toe (10/11/22) History of incision and drainage History of laparoscopic cholecystectomy History of Problems with Anesthesia: No Social History Social History Household Members: None Housing: Apartment Housing Other:: refused to answer Do you presently have visiting nurse or other home services: Yes Unable to assess alcohol history related to: Refusing to respond Alcohol intake: current Alcohol intake frequency: holidays/special occasions only Alcohol type: wine Comment: refuses alarms, camera. Education provided about safety Patient Tobacco Use Status: Current everyday Tobacco user Tobacco use type: Cigarette Cigarette Packs Per Day: 0.5 Cigarettes Per Day: 10.0 Years Smoked: 36 years Smoked in Last 30 Days: Yes Patient Interested in Nicotine Replacement: Yes Patient Given Instructions on How to Stop Smoking: No (declines) Second Hand Smoke Exposure: No Use of substances other than those prescribed or required for medical reasons: Yes Substance Use Type: Marijuana Have you been hit, kicked, punched, or otherwise hurt by someone within the past year? If so, by whom?: No Do you feel safe in your current relationship?: No Current Relationship Is there a partner from a previous relationship who is making you feel unsafe now?: No Are you made to feel afraid or neglected: No Advance Directives: No Advance Directives Information Provided: No Do you have thoughts of harming others: None Do you have a plan to hurt others: No Plan Recently lost weight without trying: No Nutrition Risks: No Nutritional Risk service: No Current occupational status: disabled Meds Allergies Allergy/AdvReac Type Severity Reaction Status Date / Time amoxicillin [AMOXICILLIN] Allergy Severe ANAPHYLAXIS Verified 11/22/23 15:04 oxycodone [From Tylox] Allergy Intermediate Itching Verified 11/22/23 15:04 hydrocodone [HYDROCODONE] Allergy Unknown UNKNOWN Verified 11/22/23 15:04 acetaminophen [From Tylox] Allergy Itching Verified 11/22/23 15:04 Active Medications: Current Medications Alprazolam (Alprazolam 0.25 Mg Tablet) 0.25 mg PO TID PRN PRN Reason: Anxiety Ascorbic Acid (Ascorbic Acid 500 Mg Tablet) 500 mg PO DAILY [facility] Last Admin: 11/22/23 09:31 Dose: 500 mg Benzonatate (Benzonatate 100 Mg Capsule) 100 mg PO TID PRN PRN Reason: Cough Dextrose (Dextrose 50 % 25 Gm/50 Ml Syringe) 25 gm IVPUSH Q15M PRN; Protocol PRN Reason: per Hypoglycemia Standing Ord. Docusate Sodium (Docusate Sodium 100 Mg Capsule) 100 mg PO DAILY PRN PRN Reason: Constipation Enoxaparin Sodium (Enoxaparin Sodium 40 Mg/0.4 Ml Syringe) 40 mg SUBCUT Q24H [facility] Last Admin: 11/21/23 19:14 Dose: 40 mg Fentanyl (Fentanyl Citrate/Pf 100 Mcg/2 Ml Vial) 25 mcg IVPUSH Q5M PRN; Protocol PRN Reason: Pain, Moderate(Pain Scale 4-6) Gabapentin (Gabapentin 100 Mg Capsule) 200 mg PO TID [facility] Last Admin: 11/22/23 14:44 Dose: 200 mg Glucose (Glucose Gel 15 Gm Gel..Gram.) 15 gm PO Q15M PRN; Protocol PRN Reason: per Hypoglycemia Standing Ord. Hydromorphone HCl (Hydromorphone Hcl 0.5 Mg/0.5 Ml Syringe) 0.5 mg IVPUSH Q5M PRN; Protocol PRN Reason: Pain, Severe (Pain Scale 7-10) Cefepime HCl 2 gm/ Sodium (Chloride) 50 mls @ 100 mls/hr IV Q12H [facility] Last Infusion: 11/22/23 09:23 Dose: Infused Vancomycin HCl 750 mg/ Sodium (Chloride) 265 mls @ 265 mls/hr IV Q8H [facility] Last Infusion: 11/22/23 10:28 Dose: Infused Insulin Human Lispro (Insulin Lispro 100 Unit/Ml 3 Ml Vial) 0 unit SUBCUT QIDACHS [facility]; Protocol Last Admin: 11/22/23 11:56 Dose: Not Given Melatonin (Melatonin 3 Mg Tablet) 6 mg PO BEDTIME PRN PRN Reason: Insomnia Morphine Sulfate (Morphine Sulfate 4 Mg/Ml Cartridge) 2 mg IVPUSH Q4H PRN; Protocol PRN Reason: Pain, Severe (Pain Scale 7-10) Naproxen (Naproxen 500 Mg Tablet) 500 mg PO BID PRN PRN Reason: Pain, Mild (Pain Scale 1-3) Ondansetron HCl (Ondansetron Hcl 4 Mg/2 Ml Vial) 4 mg IVPUSH Q8H PRN PRN Reason: Nausea and Vomiting Pharmacy Consult (Consult Rx Vancomycin Dosing) 1 each MISCELLANE DAILY PRN PRN Reason: Consult order Sodium Chloride (0.9 % Sodium Chloride Flush 3 Ml Syringe) 3 ml IVFLUSH QSHIFT [facility] Last Admin: 11/22/23 07:25 Dose: 3 ml Vitamin D (Cholecalciferol (Vitamin D3) 25 Mcg Tablet) 50 mcg PO DAILY [facility] Last Admin: 11/22/23 09:31 Dose: 50 mcg Home Medications Medication Instructions Recorded Confirmed Last Taken Type cholecalciferol (vitamin D3) 50 50 mcg PO DAILY 11/04/21 11/21/23 10/03/23 History mcg (2,000 unit) capsule gabapentin 100 mg capsule 200 mg PO TID 10/06/22 11/21/23 11/21/23 History metformin 500 mg tablet 500 mg PO BID 10/06/22 11/21/23 10/03/23 History ascorbic acid (vitamin C) 500 mg 500 mg PO DAILY 11/29/22 11/21/23 10/03/23 History tablet dulaglutide 1.5 mg/0.5 mL 1.5 mg subcut FR 11/29/22 11/21/23 10/03/23 History subcutaneous pen injector ([facility]) acetaminophen 500 mg tablet 500 mg PO TID PRN Pain 11/21/23 11/21/2311/21/24 History naproxen 500 mg tablet 500 mg PO BID PRN Pain 11/21/23 11/21/23 11/21/23 History Exam Height,Weight and Vital Signs: Height 5 ft 9 in Weight 82.2 kg Last Vital Signs Temp 98.2 F 11/22/23 07:52 Pulse 68 11/22/23 07:52 Resp 18 11/22/23 07:52 BP 112/66 11/22/23 07:52 Pulse Ox 98 11/22/23 07:52 O2 Del Method Room Air 11/22/23 07:52 Pertinent Lab Results Pertinent Lab Results: Laboratory Tests 11/21/23 11/21/23 11/22/23 16:19 21:15 05:05 WBC 13.8 H RBC 5.05 Hgb 13.7 L Hct 41.8 L MCV 82.8 MCH 27.1 MCHC 32.8 RDW 15.8 Plt Count 423 H MPV 8.7 L Immature Gran % (Auto) 0.4 Neut % (Auto) 76.1 H Lymph % (Auto) 17.1 L [place] % (Auto) 5.3 Eos % (Auto) 0.5 Baso % (Auto) 0.6 Lymph # (Auto) 2.4 [place] # (Auto) 0.7 Eos # (Auto) 0.1 Baso # (Auto) 0.1 Abs Immat Gran (auto) 0.06 H Absolute Neuts (auto) 10.5 H Absolute Nucleated RBC 0.000 Nucleated RBC % (auto) 0.0 Sodium 136 Potassium 4.6 Chloride 103 Carbon Dioxide 23 Anion Gap 15 BUN 10 Creatinine 0.88 0.73 Estim Creat Clear Calc 101.5 122.4 Estimated GFR > 60 > 60 POC Glucose 204 H Random Glucose 198 H Lactic Acid 1.2 Calcium 8.9 Total Bilirubin 0.3 AST 20 ALT 25 Alkaline Phosphatase 63 Total Protein 7.2 Albumin 3.4 L Blood Type Antibody Screen 11/22/23 11/22/23 07:01 11:01 WBC RBC Hgb Hct MCV MCH MCHC RDW Plt Count MPV Immature Gran % (Auto) Neut % (Auto) Lymph % (Auto) [place] % (Auto) Eos % (Auto) Baso % (Auto) Lymph # (Auto) [place] # (Auto) Eos # (Auto) Baso # (Auto) Abs Immat Gran (auto) Absolute Neuts (auto) Absolute Nucleated RBC Nucleated RBC % (auto) Sodium Potassium Chloride Carbon Dioxide Anion Gap BUN Creatinine Estim Creat Clear Calc Estimated GFR POC Glucose 127 H Random Glucose Lactic Acid Calcium Total Bilirubin AST ALT Alkaline Phosphatase Total Protein Albumin Blood Type A Positive Antibody Screen NEGATIVE Airway Mallampati Class: II TM Dist: >3cm Neck ROM: Full Denture: Upper and Lower Loose/Missing/Broken Teeth: No (edentulous) Heart: rrr Lungs: cta b/l Assessment and Plan Assessment Anesthesia Assessment: Anesthesia Plan Discussed and Chart Reviewed Final Anesthetic Review Family History of Problems with Anesthesia: No History of Problems with Anesthesia: No NPO: Yes ASA Class: IV Final Preanesthetic Review: Meds/Allgs Chart Reviewed, Consent Obtained/Reviewed and Anes Risks/Benef Reviewed Patient Risk: Intermediate Procedure Risk: Intermediate Anesthetic Plan Anesthetic Plan: GA Disposition: Standard PACU
--- NOTE | 2023-11-22 15:34 | PC.NURSE ---
Right upper arm single lumen PICC asymptomatic. Site clean dry and intact. Flushed well with no issues.
[2023-11-22 15:36] LABS: Glucose, Whole Blood 79 mg/dL (60-115)
--- NOTE | 2023-11-22 15:54 | MHC.CM.PN ---
CM ATTEMPTED TO SEE PT WHO IS IN OR CM TO RETURN
[2023-11-22 16:16] LABS: Vancomycin Trough 16.6 mcg/mL (10.0-20.0)
--- NOTE | 2023-11-22 16:34 | HE.PHANOTE ---
Re: Vanco Based on patient's renal function and trough of 16.6, continue dose at 750mg Q8H. Next trough due 11/23 at 1600.
--- NOTE | 2023-11-22 17:08 | P.OP_ITS ---
Operative Note Operative Note Date of Service: 11/22/23 Narrative: Operative note by [facility] Preoperative diagnosis: 1. Ischemic right lower extremity 2. Diabetic foot ulcer Postoperative diagnosis: Same Procedure: 1. Right Leg below-knee amputation 2. Myodesis Surgeon:Jose Waggoner M.D. Discharge Coordinator: Dimitrios Anesthesia: General Specimens: One Drains: None Estimated blood loss:100 ml Indications: Complex 48-year-old gentleman who had been to multiple hospitals presented with nonhealing ulcer diabetic foot ulcer with exposed bone on the dorsum of the foot. There was no possibility of healing a transmetatarsal amputation. He now presents for below-knee amputation. The patient has signed the informed consent after reviewing risks, complications, benefits, and alternatives previously discussed with the patient. The patient was given the opportunity to ask any additional questions or voice any concerns. All questions were answered to the patient's satisfaction. Procedure in detail: The patient was brought to the operating room prior to whi ch a time-out was called for patient identification and site verification. The patient was placed in a supine position. The right lower extremity was prepped and draped in the standard surgical fashion. The intended incision site was marked. The anterior aspect of the incision was made approximately 10 cm below the right tibial tuberosity. The incision was carried through the fascia. The anterior compartment muscles were divided using electrocautery dissection. The tibia and fibula were cleared. Periosteal elevator was used to clear the periosteum from the tibia. The tibia was transected with a power reciprocating saw. This was done in a reverse hockey stick shaped cut. The fibula was transected approximately 2 in above the tibial transection site once again with a reciprocating saw. The amputation was then completed using electrocautery to create the posterior flap. The flap was debulked using electrocautery and Metzenbaum scissors. The nerve was placed on traction and ligated and divided sharply. The anterior tibial posterior tibial and peroneal vessels were or identified and tied off with 2-0 silk ties. We then performed a myodesis. In the tibia on the medial and lateral aspect using a drill holes were then created. Using 2-0 Polysorb, the muscle was then buttressed to the tibia. The wound was then closed using 2-0 poly Sorb. This was used to bring together the fascia from the posterior flap to the anterior cut. We then reapproximated the superficial layer with 3-0 poly Sorb suture. Finally skin was closed using 2-0 nylon in a mattress fashion. In addition we used skin clips. The stump was then dressed with Xeroform, Kerlix and an Jaylen wrap. The patient tolerated the procedure well. They were brought to recovery with stable vitals. At the end the case sponge needle instrument counts were correct x2. This note is constructed using voice recognition software. While every effort has been made to ensure accuracy, sales and marketing agent errors may have been included. Thank you for allowing me to participate in the care of your patient. Yours sincerely, Jose Waggoner MD, FACS, R.P.V.I.
[2023-11-22] MEDS: fentaNYL citrate/PF 100 MCG/2 ML VIAL 25 MCG IVPUSH ×4 (17:22→17:37)
[2023-11-22] MEDS: LORazepam 2 MG/ML VIAL 1 MG IVPUSH (17:40)
[2023-11-22] MEDS: HYDROmorphone HCl 0.5 MG/0.5 ML SYRINGE IVPUSH ×2 (17:42→17:47)
[2023-11-22 18:35] LABS: Glucose, Whole Blood 93 mg/dL (60-115)
[2023-11-22] MEDS: Morphine Sulfate 4 MG/ML CARTRIDGE 2 MG IVPUSH (19:16)
[2023-11-22] MEDS: NaPROXEN 500 MG TABLET PO (19:51)
[2023-11-22] MEDS: Melatonin 3 MG TABLET 6 MG PO (19:51)
[2023-11-22] MEDS: Enoxaparin Sodium 40 MG/0.4 ML SYRINGE SUBCUT (19:59)
[2023-11-22] MEDS: HYDROmorphone HCl 1 MG/ML SYRINGE IVPUSH ×2 (20:04→22:26)
[2023-11-22 20:25] LABS: Glucose, Whole Blood 102 mg/dL (60-115)
[2023-11-22] MEDS: Ketorolac Tromethamine 15 MG/ML VIAL IVPUSH (23:35)
[2023-11-23] VITALS (8 sets, daily range): BP systolic 110–143; BP diastolic 59–85; PULSE 75–99; RESP 16–18; TEMP 36–36.9; O2SAT 96–100
[2023-11-23] MEDS: vancomycin HCL 750 MG in 0.9 % Sodium Chloride 250 ML 265 MG IV ×3 (01:44→18:01)
[2023-11-23] MEDS: ALPRAZolam 0.25 MG TABLET PO (01:52)
--- NOTE | 2023-11-23 05:40 | MHC.EVENTN ---
Addendum entered by Diamond Mars RN 11/23/23 05:43: He then threw the urinal at me, he's in his room yelling and swearing now. Addendum entered by Diaomnd Mars RN 11/23/23 05:42: NURSE NOTE not EVENT NOTE, entered incorrectly. Original Note: Pt has not voided in all night, stating he voided earlier but no one has emptied his urinal. He's yelling at me and the POWER CHECKER that he can't pee on demand . We wanted to bladder scan him but he's refusing.
[2023-11-23] MEDS: HYDROmorphone HCl 1 MG/ML SYRINGE IVPUSH ×6 (06:16→23:37)
[2023-11-23] MEDS: cefEPime HCl 2 GM in 0.9 % Sodium Chloride 50 ML IV ×2 (06:22→19:44)
[2023-11-23 07:22] LABS: Glucose, Whole Blood 128 mg/dL (60-115)
[2023-11-23] MEDS: Ketorolac Tromethamine 15 MG/ML VIAL IVPUSH (07:52)
[2023-11-23] MEDS: Gabapentin 100 MG CAPSULE 200 MG PO (07:53)
[2023-11-23] MEDS: Ascorbic Acid 500 MG TABLET PO (07:53)
[2023-11-23] MEDS: Cholecalciferol (Vitamin D3) 25 MCG TABLET 50 MCG PO (07:53)
[2023-11-23] MEDS: 0.9 % Sodium Chloride Flush 3 ML SYRINGE IVFLUSH ×2 (07:53→17:59)
--- NOTE | 2023-11-23 07:55 | PC.NURSE ---
Brought security in to see patient, explained he can not throw urinals at staff and would be seeking charges if he physically assaults staff.
[2023-11-23 08:11] LABS: Hemoglobin 13.3 g/dl (14.0-18.0); Mean Corpuscular HGB Conc 32.4 g/dl (31.0-36.0); Mean Corpuscular Volume 83.2 fL (80.0-98.0); Mean Platelet Volume 8.6 fL (9.4-12.4); Platelet Count 364 X10*3/uL (160-400); Red Blood Count 4.93 X10*6/uL (4.60-5.80); Red Cell Distribution Width 15.1 % (11.0-16.0); White Blood Count 14.4 X10*3/uL (4.8-10.8)
[2023-11-23 08:24] LABS: Anion Gap 14 (12-20); Blood Urea Nitrogen 11 mg/dL (9-16); Calcium 9.1 mg/dL (8.4-10.2); Carbon Dioxide 25 mmol/L (22-29); Chloride 105 mmol/L (96-108); Creatinine Clr Calc Pharmacy 122.4; Estimated Glomerular Filt Rate > 60; Glucose Random 129 mg/dL (60-115); Potassium 4.1 mmol/L (3.3-5.1); Sodium 140 mmol/L (135-145)
--- NOTE | 2023-11-23 09:11 | HO.POSTANES ---
Post Anesthesia Evaluation Post Anesthesia Evaluation Date of Service: 11/23/23 Vital Signs: Vital Signs Temp Pulse Resp BP Pulse Ox O2 Del Method 11/23/23 07:48 96.8 F 83 16 110/59 L 100 Room Air 11/23/23 03:08 97.7 F 79 18 115/68 99 Room Air 11/22/23 23:24 97.7 F 80 18 130/65 95 Room Air Anesthesia: General LMA Mental Status: Awake Pain Control: Satisfactory (Patient c/o a lot of pain. Was just medicated) Nausea/Vomiting: None Hydration: Adequate Anesthesia-Related Issues: No Anes. Related Issues
--- NOTE | 2023-11-23 09:47 | P.PNVS_ITS ---
Subjective Subjective Date of Service: 11/23/23 Patient reports: no new complaints and feels better Interval history: Extremely complex 48-year-old gentleman postop day 1 status post right BKA. Had a difficult night last night. He actually through your renals at nurses yesterday evening. Had security at bedside this morning. At the time of my visit he seemed a little bit more calm. Nurse Carmen was present during the entire duration of visit for safety. Reports that doing fairly well after amputation. Pain seems to be an issue for him. In addition he is concerned about the phantom limb pain. In general appears to be doing relatively well. Now for [facility] low-up. Physical Exam Vital Signs: Vital Signs: Last Vital Signs Temp 96.8 F 11/23/23 07:48 Pulse 83 11/23/23 07:48 Resp 16 11/23/23 07:48 BP 110/59 L 11/23/23 07:48 Pulse Ox 100 11/23/23 07:48 O2 Del Method Room Air 11/23/23 07:48 O2 Flow Rate 3 11/22/23 17:49 BMI result Body Mass Index 26.8 Const: General: cooperative, healthy appearing and no acute distress Orientation/consciousness: oriented to person, oriented to place and oriented to time HEENT: Head: Yes normal to inspection Neck: Carotids: no bruits Chest: Chest palpation & inspection: normal inspection of the chest Resp: Effort & Inspection: normal respiratory effort and able to speak in complete sentences Auscultation: clear to auscultation bilaterally Cardio: Rate: regular rate Heart sounds: S1 normal heart sound present and S2 normal heart sound present GI: Inspection: Yes normal to inspection Skin: Other: Amp dressing clean dry intact General skin exam: no rashes or lesions noted Wounds: no wounds Neuro: General: oriented to person, oriented to place, oriented to time and CN's II-XI intact bilaterally Extrem: General: Yes normal to inspection, Yes full ROM and Yes no clubbing, cyanosis or edema Psych: Appearance: grossly normal and well kempt Speech and movement: Normal speech and movement present Affect: normal affect Progress Note: A&P Assessment and plan (1) PAD (peripheral artery disease): Status: Acute Assessment and Plan: In short patient is status post BKA. Will plan for dressing change on Sunday. Will need physical therapy. Placement planning in terms of rehab versus home. We will continue monitor this patient with you. Thank you for allowing us to assist in his care. Time Spent With Patient Time: Total time managing care of this patient today ____ minutes. Procedures Date of Service Date of Service: 11/23/23 Quality Stroke Does the patient have a stroke diagnosis?: No VTE Prior VTE?: No VTE Risk Level:: Medical - moderate - high VTE Device Contraindication: Treatment Not Indicated VTE Drug Contraindication: N/A - Med Ordered
--- NOTE | 2023-11-23 11:30 | MHC.CM.PN ---
PT REPORTS HE LIVES ALONE AND IS ACTIVE WITH [facility] FOR [facility] HE REPORTS HE WANTS TO GO HOME AT SC AND HAS ALL OF THE DME HE MAY NEED HE HAS A WHEEL CHAIR, WALKER, CANE, CRUTCHES, HE SAYS HE HAS ALREADY CONSIDERED HOW HE WILL TRANSFER TO TOILET/BED/CHAIR AND HAS BEEN TAKING SPONGE BATHS FOR A LONG TIME PT IS NOW ACTIVE WITH [facility] FOR PRIMARY CARE DCP: HOME, RESUME [facility] HE WILL NEED A FACE TO FACE TO ADD PT SERVICES BLS TRANSPORT
[2023-11-23 11:40] LABS: Glucose, Whole Blood 147 mg/dL (60-115)
--- NOTE | 2023-11-23 13:14 | P.PNIM_ITS ---
Subjective Subjective Date of Service: 11/23/23 Interval History: Seen and evaluated this morning POD 1 pain under fair control less anxious had a rought night with medical staff no other events Review of Systems Review of Systems: Yes all other systems are reviewed and are negative Physical Exam 2 Vital Signs: Vital Signs: Last Vital Signs Temp 96.8 F 11/23/23 11:46 Pulse 99 11/23/23 11:46 Resp 16 11/23/23 11:46 BP 137/63 11/23/23 11:46 Pulse Ox 97 11/23/23 11:46 O2 Del Method Room Air 11/23/23 11:46 O2 Flow Rate 3 11/22/23 17:49 BMI result Body Mass Index 26.8 Const: Other: Constitutional : Awake, interactive, anxious Neck : Normal inspection, Supple Cardiovascular : RRR, no JVP, no lower extremity edema Respiratory : good bilateral air entry, no crackles, wheezes or rhonchi Gastrointestinal: soft, lax, Normal bowel sounds, Non tender Skin : Warm, Dry, Right BKA, LEft foot w multiple amputated toes, open wounds covered with dressing Neurological : Alert & oriented x3, No focal deficit Objective Data Active Medications Alprazolam (Alprazolam 0.25 Mg Tablet) 0.25 mg PO TID PRN PRN Reason: Anxiety Last Admin: 11/23/23 01:52 Dose: 0.25 mg Documented By: ELTON Comments: Dr. Vargas OK'd to give early. Ascorbic Acid (Ascorbic Acid 500 Mg Tablet) 500 mg PO DAILY [facility] Last Admin: 11/23/23 07:53 Dose: 500 mg Documented By: SAMINA Benzonatate (Benzonatate 100 Mg Capsule) 100 mg PO TID PRN PRN Reason: Cough Cyclobenzaprine HCl (Cyclobenzaprine Hcl 5 Mg Tablet) 5 mg PO TID [facility] Last Admin: 11/23/23 12:00 Dose: Not Given Documented By: SAMINA Non-Admin Reason: See Note Dextrose (Dextrose 50 % 25 Gm/50 Ml Syringe) 25 gm IVPUSH Q15M PRN; Protocol PRN Reason: per Hypoglycemia Standing Ord. Docusate Sodium (Docusate Sodium 100 Mg Capsule) 100 mg PO DAILY PRN PRN Reason: Constipation Enoxaparin Sodium (Enoxaparin Sodium 40 Mg/0.4 Ml Syringe) 40 mg SUBCUT Q24H [facility] Last Admin: 11/22/23 19:59 Dose: 40 mg Documented By: ELTON Gabapentin (Gabapentin 100 Mg Capsule) 200 mg PO TID [facility] Last Admin: 11/23/23 07:53 Dose: 200 mg Documented By: SAMINA Glucose (Glucose Gel 15 Gm Gel..Gram.) 15 gm PO Q15M PRN; Protocol PRN Reason: per Hypoglycemia Standing Ord. Hydromorphone HCl (Hydromorphone Hcl 0.5 Mg/0.5 Ml Syringe) 0.5 mg IVPUSH Q5M PRN; Protocol PRN Reason: Pain, Severe (Pain Scale 7-10) Last Admin: 11/22/23 17:47 Dose: 0.5 mg Documented By: MAHSA Hydromorphone HCl (Hydromorphone Hcl 1 Mg/Ml Syringe) 1 mg IVPUSH Q2H PRN; Protocol PRN Reason: Pain, Severe (Pain Scale 7-10) Cefepime HCl 2 gm/ Sodium (Chloride) 50 mls @ 100 mls/hr IV Q12H [facility] Last Infusion: 11/23/23 07:02 Dose: Infused Documented By: ELTON Vancomycin HCl 750 mg/ Sodium (Chloride) 265 mls @ 265 mls/hr IV Q8H [facility] Last Infusion: 11/23/23 11:47 Dose: Infused Documented By: SAMINA Insulin Human Lispro (Insulin Lispro 100 Unit/Ml 3 Ml Vial) 0 unit SUBCUT QIDACHS [facility]; Protocol Last Admin: 11/23/23 11:44 Dose: Not Given Documented By: SAMINA Non-Admin Reason: No Insulin Coverage Melatonin (Melatonin 3 Mg Tablet) 6 mg PO BEDTIME PRN PRN Reason: Insomnia Last Admin: 11/22/23 19:51 Dose: 6 mg Documented By: ELTON Naloxone HCl (Naloxone Hcl Nasal 4 Mg [place]) 4 mg NOSTRILALT ONCE PRN PRN Reason: Opiate Reversal Naproxen (Naproxen 500 Mg Tablet) 500 mg PO BID PRN PRN Reason: Pain, Mild (Pain Scale 1-3) Last Admin: 11/22/23 19:51 Dose: 500 mg Documented By: ELTON Ondansetron HCl (Ondansetron Hcl 4 Mg/2 Ml Vial) 4 mg IVPUSH Q8H PRN PRN Reason: Nausea and Vomiting Pharmacy Consult (Consult Rx Vancomycin Dosing) 1 each MISCELLANE DAILY PRN PRN Reason: Consult order Sodium Chloride (0.9 % Sodium Chloride Flush 3 Ml Syringe) 3 ml IVFLUSH QSHIFT [facility] Last Admin: 11/23/23 07:53 Dose: 3 ml Documented By: SAMINA Vitamin D (Cholecalciferol (Vitamin D3) 25 Mcg Tablet) 50 mcg PO DAILY [facility] Last Admin: 11/23/23 07:53 Dose: 50 mcg Documented By: SAMINA Labs 11/23/23 07:51 11/23/23 07:51 Labs: Laboratory Results - last 24 hr 11/22/23 11/22/23 11/22/23 15:31 15:53 18:31 MCV MCH MCHC RDW Plt Count MPV Absolute Nucleated RBC Nucleated RBC % (auto) Anion Gap Estim Creat Clear Calc Estimated GFR POC Glucose 79 93 Random Glucose Calcium Vancomycin Trough 16.6 11/22/23 11/23/23 11/23/23 20:17 07:07 07:51 MCV 83.2 MCH 27.0 MCHC 32.4 RDW 15.1 Plt Count 364 MPV 8.6 L Absolute Nucleated RBC 0.000 Nucleated RBC % (auto) 0.0 Anion Gap 14 Estim Creat Clear Calc 122.4 Estimated GFR POC Glucose 102 128 H Random Glucose Calcium Vancomycin Trough 11/23/23 11/23/23 11/23/23 07:51 07:51 11:31 MCV MCH MCHC RDW Plt Count MPV Absolute Nucleated RBC Nucleated RBC % (auto) Anion Gap Estim Creat Clear Calc 122.4 Estimated GFR > 60 > 60 POC Glucose 147 H Random Glucose 129 H Calcium 9.1 Vancomycin Trough Microbiology Microbiology Results: Microbiology 11/21/23 16:54 Blood Culture - Preliminary Blood - Venous No growth after 24 hours. 11/21/23 16:53 Blood Culture - Preliminary Blood - Venous No growth after 24 hours. Assessment and Plan (1) Acute on chronic osteomyelitis: Status: Acute (2) PAD (peripheral artery disease): Status: Acute Plan Pt is a 48-year-old male with a PMH significant for?HTN, [id number] diabetes type 2, GERD, hx of osteomyelitis with multiple toe amputations, hx of MRSA and group C Streptococcus bacteremia, PTSD, and anxiety/depression who presents to the ED from infectious disease office for evaluation of worsening right chronic non-healing diabetic foot ulcers. Pt will be admitted to the hospital for treatment and further evaluation of acute on chronic osteomyelitis of right foot in a patient with chronic nonhealing diabetic foot ulcers. Acute on chronic osteomyelitis of right foot inpatient with chronic nonhealing diabetic foot ulcers POD1 BKA Pain under fair control; increase Gabapentin negative cultures Continue vancomycin and cefepime Vascular surgery input appreciated; wound change on Sunday Morphine for pain management Start PT Pnc-[id number] diabetes type 2 Hold metformin, Trulicity and Glipizide sliding scale insulin, diabetic diet Peripheral neuropathy Continue gabapentin Full Code DVT Prophylaxis: Lovenox Pt will require a hospitalization overnight for treatment of?post BKA in a patient with chronic nonhealing diabetic foot ulcers and the need of wound change and safe discharge plan Quality Stroke Does the patient have a stroke diagnosis?: No VTE Prior VTE?: No VTE Risk Level:: Medical - moderate - high VTE Device Contraindication: Treatment Not Indicated VTE Drug Contraindication: N/A - Med Ordered
[2023-11-23] MEDS: Gabapentin 400 MG CAPSULE PO ×2 (14:54→20:22)
[2023-11-23] MEDS: Cyclobenzaprine HCl 5 MG TABLET PO ×2 (14:54→20:22)
[2023-11-23 16:25] LABS: Glucose, Whole Blood 158 mg/dL (60-115)
[2023-11-23 16:34] LABS: Vancomycin Random 17.6 mcg/mL (15-20)
--- NOTE | 2023-11-23 17:40 | HE.PHANOTE ---
Re: Vanco Based on patient's renal function and trough of 17.6, continue dose of 750mg Q8H. Next trough at 11/24 1600.
[2023-11-23] MEDS: Insulin Lispro 100 UNIT/ML 3 ML VIAL SUBCUT (17:58)
[2023-11-23] MEDS: Enoxaparin Sodium 40 MG/0.4 ML SYRINGE SUBCUT (19:44)
[2023-11-23 21:19] LABS: Glucose, Whole Blood 127 mg/dL (60-115)
[2023-11-24] VITALS (7 sets, daily range): BP systolic 101–133; BP diastolic 64–76; PULSE 55–81; RESP 16–20; TEMP 36.6–36.8; O2SAT 96–100
[2023-11-24] MEDS: HYDROmorphone HCl 1 MG/ML SYRINGE IVPUSH ×6 (01:47→19:53)
[2023-11-24] MEDS: vancomycin HCL 750 MG in 0.9 % Sodium Chloride 250 ML 265 MG IV ×3 (01:48→18:27)
[2023-11-24] MEDS: cefEPime HCl 2 GM in 0.9 % Sodium Chloride 50 ML IV ×2 (06:16→20:05)
[2023-11-24 06:24] LABS: Creatinine Clr Calc Pharmacy 119.1; Estimated Glomerular Filt Rate > 60
[2023-11-24 07:26] LABS: Glucose, Whole Blood 123 mg/dL (60-115)
[2023-11-24] MEDS: 0.9 % Sodium Chloride Flush 3 ML SYRINGE IVFLUSH ×2 (07:26→15:58)
[2023-11-24] MEDS: Cyclobenzaprine HCl 5 MG TABLET PO ×3 (07:44→20:00)
[2023-11-24] MEDS: Gabapentin 400 MG CAPSULE PO ×3 (07:44→20:00)
[2023-11-24] MEDS: Ascorbic Acid 500 MG TABLET PO (07:45)
[2023-11-24] MEDS: Cholecalciferol (Vitamin D3) 25 MCG TABLET 50 MCG PO (07:45)
[2023-11-24] MEDS: diazePAM 2 MG TABLET PO (10:42)
[2023-11-24] MEDS: Docusate Sodium 100 MG CAPSULE PO (10:42)
[2023-11-24 11:17] LABS: Glucose, Whole Blood 215 mg/dL (60-115)
[2023-11-24] MEDS: Insulin Lispro 100 UNIT/ML 3 ML VIAL SUBCUT ×2 (12:06→22:30)
--- NOTE | 2023-11-24 12:08 | HO.PM.IMPN ---
Subjective Subjective Date of Service: 11/24/23 Interval History: Seen and evaluated this morning POD 2 pain under fair control , reporting phantom leg feeling more anxious no other events Review of Systems Review of Systems: Yes all other systems are reviewed and are negative Physical Exam Vital Signs: Vital Signs: Last Vital Signs Temp 98.3 F 11/24/23 12:00 Pulse 55 11/24/23 12:00 Resp 16 11/24/23 12:00 BP 133/74 11/24/23 12:00 Pulse Ox 96 11/24/23 12:00 O2 Del Method Room Air 11/24/23 12:00 O2 Flow Rate 3 11/22/23 17:49 BMI result Body Mass Index 26.8 Const: Other: Constitutional : Awake, interactive, anxious Neck : Normal inspection, Supple Cardiovascular : RRR, no JVP, no lower extremity edema Respiratory : good bilateral air entry, no crackles, wheezes or rhonchi Gastrointestinal: soft, lax, Normal bowel sounds, Non tender Skin : Warm, Dry, Right BKA, LEft foot w multiple amputated toes, left foot open wounds covered with dressing Neurological : Alert & oriented x3, No focal deficit Objective Data Active Medications Alprazolam (Alprazolam 0.25 Mg Tablet) 0.25 mg PO TID PRN PRN Reason: Anxiety Last Admin: 11/23/23 01:52 Dose: 0.25 mg Documented By: ELTON Comments: Dr. Vargas OK'd to give early. Ascorbic Acid (Ascorbic Acid 500 Mg Tablet) 500 mg PO DAILY [facility] Last Admin: 11/24/23 07:45 Dose: 500 mg Documented By: RUPINDER Benzonatate (Benzonatate 100 Mg Capsule) 100 mg PO TID PRN PRN Reason: Cough Cyclobenzaprine HCl (Cyclobenzaprine Hcl 5 Mg Tablet) 5 mg PO TID [facility] Last Admin: 11/24/23 07:44 Dose: 5 mg Documented By: RUPINDER Dextrose (Dextrose 50 % 25 Gm/50 Ml Syringe) 25 gm IVPUSH Q15M PRN; Protocol PRN Reason: per Hypoglycemia Standing Ord. Docusate Sodium (Docusate Sodium 100 Mg Capsule) 100 mg PO DAILY [facility] Last Admin: 11/24/23 10:42 Dose: 100 mg Documented By: RUPINDER Enoxaparin Sodium (Enoxaparin Sodium 40 Mg/0.4 Ml Syringe) 40 mg SUBCUT Q24H [facility] Last Admin: 11/23/23 19:44 Dose: 40 mg Documented By: NEVILLE Gabapentin (Gabapentin 400 Mg Capsule) 400 mg PO TID [facility] Last Admin: 11/24/23 07:44 Dose: 400 mg Documented By: RUPINDER Glucose (Glucose Gel 15 Gm Gel..Gram.) 15 gm PO Q15M PRN; Protocol PRN Reason: per Hypoglycemia Standing Ord. Hydromorphone HCl (Hydromorphone Hcl 0.5 Mg/0.5 Ml Syringe) 0.5 mg IVPUSH Q5M PRN; Protocol PRN Reason: Pain, Severe (Pain Scale 7-10) Last Admin: 11/22/23 17:47 Dose: 0.5 mg Documented By: MAHSA Hydromorphone HCl (Hydromorphone Hcl 1 Mg/Ml Syringe) 1 mg IVPUSH Q2H PRN; Protocol PRN Reason: Pain, Severe (Pain Scale 7-10) Last Admin: 11/24/23 09:21 Dose: 1 mg Documented By: RUPINDER Cefepime HCl 2 gm/ Sodium (Chloride) 50 mls @ 100 mls/hr IV Q12H [facility] Last Infusion: 11/24/23 07:43 Dose: Infused Documented By: RUPINDER Vancomycin HCl 750 mg/ Sodium (Chloride) 265 mls @ 265 mls/hr IV Q8H [facility] Last Infusion: 11/24/23 10:45 Dose: Infused Documented By: RUPINDER Insulin Human Lispro (Insulin Lispro 100 Unit/Ml 3 Ml Vial) 0 unit SUBCUT QIDACHS [facility]; Protocol Last Admin: 11/24/23 07:37 Dose: Not Given Documented By: RUPINDER Non-Admin Reason: No Insulin Coverage Melatonin (Melatonin 3 Mg Tablet) 6 mg PO BEDTIME PRN PRN Reason: Insomnia Last Admin: 11/22/23 19:51 Dose: 6 mg Documented By: ELTON Naloxone HCl (Naloxone Hcl Nasal 4 Mg [place]) 4 mg NOSTRILALT ONCE PRN PRN Reason: Opiate Reversal Naproxen (Naproxen 500 Mg Tablet) 500 mg PO BID PRN PRN Reason: Pain, Mild (Pain Scale 1-3) Last Admin: 11/22/23 19:51 Dose: 500 mg Documented By: ELTON Ondansetron HCl (Ondansetron Hcl 4 Mg/2 Ml Vial) 4 mg IVPUSH Q8H PRN PRN Reason: Nausea and Vomiting Pharmacy Consult (Consult Rx Vancomycin Dosing) 1 each MISCELLANE DAILY PRN PRN Reason: Consult order Sodium Chloride (0.9 % Sodium Chloride Flush 3 Ml Syringe) 3 ml IVFLUSH QSHIFT [facility] Last Admin: 11/24/23 07:26 Dose: 3 ml Documented By: RUPINDER Vitamin D (Cholecalciferol (Vitamin D3) 25 Mcg Tablet) 50 mcg PO DAILY [facility] Last Admin: 11/24/23 07:45 Dose: 50 mcg Documented By: RUPINDER Labs 11/23/23 07:51 11/24/23 05:21 Labs: Laboratory Results - last 24 hr 11/23/23 11/23/23 11/23/23 16:09 16:10 21:04 Hold Purple Top Estim Creat Clear Calc Estimated GFR POC Glucose 158 H 127 H Random Vancomycin 17.6 11/24/23 11/24/23 11/24/23 05:21 07:08 11:11 Hold Purple Top SEE NOTE Estim Creat Clear Calc 119.1 Estimated GFR > 60 POC Glucose 123 H 215 H Random Vancomycin Microbiology Microbiology Results: Microbiology 11/21/23 16:54 Blood Culture - Preliminary Blood - Venous No growth after 48 hours. 11/21/23 16:53 Blood Culture - Preliminary Blood - Venous No growth after 48 hours. Assessment and Plan (1) Acute on chronic osteomyelitis: Status: Acute (2) Below-knee amputation of right lower extremity: Status: Acute Plan Pt is a 48-year-old male with a PMH significant for?HTN, [id number] diabetes type 2, GERD, hx of osteomyelitis with multiple toe amputations, hx of MRSA and group C Streptococcus bacteremia, PTSD, and anxiety/depression who presents to the ED from infectious disease office for evaluation of worsening right chronic non-healing diabetic foot ulcers. Pt will be admitted to the hospital for treatment and further evaluation of acute on chronic osteomyelitis of right foot in a patient with chronic nonhealing diabetic foot ulcers. Acute on chronic osteomyelitis of right foot inpatient with chronic nonhealing diabetic foot ulcers POD 2 BKA Pain under fair control; increase Gabapentin negative cultures Continue vancomycin and cefepime Vascular surgery input appreciated; wound change on Sunday Morphine for pain management Flexeril muscle relaxant PT [id number] diabetes type 2 Hold metformin, Trulicity and Glipizide sliding scale insulin, diabetic diet Peripheral neuropathy Continue gabapentin Full Code DVT Prophylaxis: Lovenox Pt will require a hospitalization overnight for treatment of?post BKA in a patient with chronic nonhealing diabetic foot ulcers and the need of wound change and safe discharge plan Quality Stroke Does the patient have a stroke diagnosis?: No VTE Prior VTE?: No VTE Risk Level:: Medical - moderate - high VTE Device Contraindication: Treatment Not Indicated VTE Drug Contraindication: N/A - Med Ordered
[2023-11-24] MEDS: NaPROXEN 500 MG TABLET PO (12:30)
[2023-11-24 16:45] LABS: Glucose, Whole Blood 103 mg/dL (60-115)
[2023-11-24] MEDS: Enoxaparin Sodium 40 MG/0.4 ML SYRINGE SUBCUT (19:55)
[2023-11-24 21:09] LABS: Glucose, Whole Blood 208 mg/dL (60-115)
[2023-11-25] MEDS: HYDROmorphone HCl 1 MG/ML SYRINGE IVPUSH ×6 (00:05→21:24)
--- NOTE | 2023-11-25 02:29 | PC.NURSE ---
Met patient approx midnight. Patient angry and insulting with raised voice, challenging in conversation. Attempted to assure patient that I am trying to help him, patient berating me including yelling at me for having soft voice. Patient stated that I was trying to start shit , and that everyone that comes in here tries to start shit . Reassurance given as I left the room and informed the patient that due to his accusations I will have to get another staff member in the room to accompany me. Jignesh ALAN in doorway for the rest of interaction as I did not feel safe in this room with patient due to his history with other staff members.
[2023-11-25] MEDS: vancomycin HCL 750 MG in 0.9 % Sodium Chloride 250 ML 265 MG IV ×3 (03:29→18:36)
[2023-11-25 05:57] LABS: Creatinine Clr Calc Pharmacy 117.5; Estimated Glomerular Filt Rate > 60
[2023-11-25 07:27] LABS: Glucose, Whole Blood 158 mg/dL (60-115)
[2023-11-25] MEDS: cefEPime HCl 2 GM in 0.9 % Sodium Chloride 50 ML IV (07:41)
[2023-11-25] MEDS: 0.9 % Sodium Chloride Flush 3 ML SYRINGE IVFLUSH ×2 (07:41→15:34)
[2023-11-25 07:42] VITALS: RESP 16
[2023-11-25] MEDS: Gabapentin 400 MG CAPSULE PO ×3 (07:42→21:23)
[2023-11-25] MEDS: Cholecalciferol (Vitamin D3) 25 MCG TABLET 50 MCG PO (07:42)
[2023-11-25] MEDS: Cyclobenzaprine HCl 5 MG TABLET PO ×3 (07:43→21:23)
[2023-11-25] MEDS: Docusate Sodium 100 MG CAPSULE PO (07:43)
[2023-11-25] MEDS: Insulin Lispro 100 UNIT/ML 3 ML VIAL SUBCUT ×3 (07:43→21:25)
[2023-11-25] MEDS: Ascorbic Acid 500 MG TABLET PO (07:43)
[2023-11-25 07:45] VITALS: BP 135/81; PULSE 68; RESP 14; TEMP 36.2; O2SAT 96
[2023-11-25 11:12] LABS: Glucose, Whole Blood 107 mg/dL (60-115)
--- NOTE | 2023-11-25 11:53 | HO.PM.IMPN ---
Subjective Subjective Date of Service: 11/25/23 Interval History: Seen and evaluated this morning POD 3 pain under fair control , reporting phantom leg feeling able to extend his knee more no other events Review of Systems Review of Systems: Yes all other systems are reviewed and are negative Physical Exam Vital Signs: Vital Signs: Last Vital Signs Temp 97.2 F 11/25/23 07:45 Pulse 68 11/25/23 07:45 Resp 14 11/25/23 07:45 BP 135/81 11/25/23 07:45 Pulse Ox 96 11/25/23 07:45 O2 Del Method Room Air 11/25/23 07:45 O2 Flow Rate 3 11/22/23 17:49 BMI result Body Mass Index 26.8 Const: Other: Constitutional : Awake, interactive, anxious Neck : Normal inspection, Supple Cardiovascular : RRR, no JVP, no lower extremity edema Respiratory : good bilateral air entry, no crackles, wheezes or rhonchi Gastrointestinal: soft, lax, Normal bowel sounds, Non tender Skin : Warm, Dry, Right BKA, LEft foot w multiple amputated toes, left foot open wounds covered with dressing Neurological : Alert & oriented x3, No focal deficit Objective Data Active Medications Alprazolam (Alprazolam 0.25 Mg Tablet) 0.25 mg PO TID PRN PRN Reason: Anxiety Last Admin: 11/23/23 01:52 Dose: 0.25 mg Documented By: ELTON Comments: Dr. Vargas OK'd to give early. Ascorbic Acid (Ascorbic Acid 500 Mg Tablet) 500 mg PO DAILY [facility] Last Admin: 11/25/23 07:43 Dose: 500 mg Documented By: RUPINDER Benzonatate (Benzonatate 100 Mg Capsule) 100 mg PO TID PRN PRN Reason: Cough Cyclobenzaprine HCl (Cyclobenzaprine Hcl 5 Mg Tablet) 5 mg PO TID [facility] Last Admin: 11/25/23 07:43 Dose: 5 mg Documented By: RUPINDER Dextrose (Dextrose 50 % 25 Gm/50 Ml Syringe) 25 gm IVPUSH Q15M PRN; Protocol PRN Reason: per Hypoglycemia Standing Ord. Docusate Sodium (Docusate Sodium 100 Mg Capsule) 100 mg PO DAILY [facility] Last Admin: 11/25/23 07:43 Dose: 100 mg Documented By: RUPINDER Enoxaparin Sodium (Enoxaparin Sodium 40 Mg/0.4 Ml Syringe) 40 mg SUBCUT Q24H [facility] Last Admin: 11/24/23 19:55 Dose: 40 mg Documented By: GERARDO Gabapentin (Gabapentin 400 Mg Capsule) 400 mg PO TID [facility] Last Admin: 11/25/23 07:42 Dose: 400 mg Documented By: RUPINDER Glucose (Glucose Gel 15 Gm Gel..Gram.) 15 gm PO Q15M PRN; Protocol PRN Reason: per Hypoglycemia Standing Ord. Hydromorphone HCl (Hydromorphone Hcl 0.5 Mg/0.5 Ml Syringe) 0.5 mg IVPUSH Q5M PRN; Protocol PRN Reason: Pain, Severe (Pain Scale 7-10) Last Admin: 11/22/23 17:47 Dose: 0.5 mg Documented By: MAHSA Hydromorphone HCl (Hydromorphone Hcl 1 Mg/Ml Syringe) 1 mg IVPUSH Q2H PRN; Protocol PRN Reason: Pain, Severe (Pain Scale 7-10) Last Admin: 11/25/23 07:42 Dose: 1 mg Documented By: RUPINDER Cefepime HCl 2 gm/ Sodium (Chloride) 50 mls @ 100 mls/hr IV Q12H [facility] Last Infusion: 11/25/23 08:43 Dose: Infused Documented By: RUPINDER Vancomycin HCl 750 mg/ Sodium (Chloride) 265 mls @ 265 mls/hr IV Q8H [facility] Last Admin: 11/25/23 10:59 Dose: 265 mls/hr Documented By: RUPINDER Insulin Human Lispro (Insulin Lispro 100 Unit/Ml 3 Ml Vial) 0 unit SUBCUT QIDACHS [facility]; Protocol Last Admin: 11/25/23 11:27 Dose: Not Given Documented By: RUPINDER Non-Admin Reason: No Insulin Coverage Melatonin (Melatonin 3 Mg Tablet) 6 mg PO BEDTIME PRN PRN Reason: Insomnia Last Admin: 11/22/23 19:51 Dose: 6 mg Documented By: ELTON Naloxone HCl (Naloxone Hcl Nasal 4 Mg [place]) 4 mg NOSTRILALT ONCE PRN PRN Reason: Opiate Reversal Naproxen (Naproxen 500 Mg Tablet) 500 mg PO BID PRN PRN Reason: Pain, Mild (Pain Scale 1-3) Last Admin: 11/24/23 12:30 Dose: 500 mg Documented By: RUPINDER Ondansetron HCl (Ondansetron Hcl 4 Mg/2 Ml Vial) 4 mg IVPUSH Q8H PRN PRN Reason: Nausea and Vomiting Pharmacy Consult (Consult Rx Vancomycin Dosing) 1 each MISCELLANE DAILY PRN PRN Reason: Consult order Sodium Chloride (0.9 % Sodium Chloride Flush 3 Ml Syringe) 3 ml IVFLUSH QSHIFT [facility] Last Admin: 11/25/23 07:41 Dose: 3 ml Documented By: RUPINDER Vitamin D (Cholecalciferol (Vitamin D3) 25 Mcg Tablet) 50 mcg PO DAILY [facility] Last Admin: 11/25/23 07:42 Dose: 50 mcg Documented By: RUPINDER Labs 11/23/23 07:51 11/25/23 05:33 Labs: Laboratory Results - last 24 hr 11/24/23 11/24/23 11/24/23 16:02 16:25 20:41 Hold Purple Top Estim Creat Clear Calc Estimated GFR POC Glucose 103 208 H Random Vancomycin 15.0 11/25/23 11/25/23 11/25/23 05:33 07:08 10:58 Hold Purple Top SEE NOTE Estim Creat Clear Calc 117.5 Estimated GFR > 60 POC Glucose 158 H 107 Random Vancomycin Assessment and Plan (1) Below-knee amputation of right lower extremity: Status: Acute (2) Acute on chronic osteomyelitis: Status: Acute Plan Pt is a 48-year-old male with a PMH significant for?HTN, [id number] diabetes type 2, GERD, hx of osteomyelitis with multiple toe amputations, hx of MRSA and group C Streptococcus bacteremia, PTSD, and anxiety/depression who presents to the ED from infectious disease office for evaluation of worsening right chronic non-healing diabetic foot ulcers. Pt will be admitted to the hospital for treatment and further evaluation of acute on chronic osteomyelitis of right foot in a patient with chronic nonhealing diabetic foot ulcers. Acute on chronic osteomyelitis of right foot inpatient with chronic nonhealing diabetic foot ulcers POD 3 BKA Pain under fair control; increase Gabapentin negative cultures Continue vancomycin and DC cefepime Vascular surgery input appreciated; wound change on Sunday Morphine for pain management Flexeril muscle relaxant PT [id number] diabetes type 2 Hold metformin, Trulicity and Glipizide sliding scale insulin, diabetic diet Peripheral neuropathy Continue gabapentin Full Code DVT Prophylaxis: Lovenox Pt will require a hospitalization overnight for treatment of?post BKA in a patient with chronic nonhealing diabetic foot ulcers and the need of wound change and safe discharge plan Quality Stroke Does the patient have a stroke diagnosis?: No VTE Prior VTE?: No VTE Risk Level:: Medical - moderate - high VTE Device Contraindication: Treatment Not Indicated VTE Drug Contraindication: N/A - Med Ordered
[2023-11-25 12:38] VITALS: RESP 18
[2023-11-25 14:00] VITALS: O2SAT 96
[2023-11-25 15:18] VITALS: BP 147/65; PULSE 85; RESP 18; TEMP 36.5; O2SAT 100
[2023-11-25 16:29] LABS: Glucose, Whole Blood 214 mg/dL (60-115)
[2023-11-25 16:46] VITALS: RESP 18
[2023-11-25 16:46] LABS: Vancomycin Random 16.7 mcg/mL (15-20)
[2023-11-25] MEDS: Enoxaparin Sodium 40 MG/0.4 ML SYRINGE SUBCUT (18:36)
[2023-11-25 20:35] LABS: Glucose, Whole Blood 177 mg/dL (60-115)
[2023-11-26] VITALS: BP 113/66; PULSE 69; RESP 18; TEMP 36.4; O2SAT 98
[2023-11-26] MEDS: HYDROmorphone HCl 1 MG/ML SYRINGE IVPUSH ×4 (00:49→11:45)
[2023-11-26] MEDS: vancomycin HCL 750 MG in 0.9 % Sodium Chloride 250 ML 265 MG IV ×2 (00:54→10:33)
[2023-11-26 06:37] LABS: Creatinine Clr Calc Pharmacy 113.1; Estimated Glomerular Filt Rate > 60
[2023-11-26 07:02] VITALS: BP 111/67; PULSE 80; RESP 16; TEMP 36.1; O2SAT 96
[2023-11-26 07:16] LABS: Glucose, Whole Blood 191 mg/dL (60-115)
[2023-11-26] MEDS: Cyclobenzaprine HCl 5 MG TABLET PO ×2 (08:34→15:08)
[2023-11-26] MEDS: Docusate Sodium 100 MG CAPSULE PO (08:35)
[2023-11-26] MEDS: Cholecalciferol (Vitamin D3) 25 MCG TABLET 50 MCG PO (08:35)
[2023-11-26] MEDS: Ascorbic Acid 500 MG TABLET PO (08:35)
[2023-11-26] MEDS: Gabapentin 400 MG CAPSULE PO ×2 (08:35→15:09)
[2023-11-26] MEDS: 0.9 % Sodium Chloride Flush 3 ML SYRINGE IVFLUSH (08:42)
--- NOTE | 2023-11-26 08:53 | HE.PHANOTE ---
Re: Vanco Based on renal function results from today, continue dose of 750mg Q8H, with predicted AUC 465. Next trough at 11/27 1600.
[2023-11-26 11:35] LABS: Glucose, Whole Blood 205 mg/dL (60-115)
[2023-11-26] MEDS: Insulin Lispro 100 UNIT/ML 3 ML VIAL SUBCUT (12:08)
--- NOTE | 2023-11-26 12:19 | P.DS_ITS ---
DS: Providers Provider Date of Service: 11/26/23 Date of admission: 11/21/23 18:43 Primary care physician: STEPHANIE Marti Consults: 11/21/23 18:52 Consult to Vascular Surgery Routine Consulting [place] [facility] Reason for consultation: Worsening chronic diabetic foot ulcer 11/22/23 11:30 Consult to General Surgery Routine Consulting Provider[place] [facility] Reason for consultation: Second opinion for the need of amputation and extent of surgery 11/22/23 23:23 Consult to Wound Care Routine Reason for consultation: ulcer to bottom of left foot 11/26/23 12:15 Consult to Care Team Routine Comment: Reason for consultation: Outpatient resources, care plan for anxiety and depressed mood DS: Diagnosis Discharge Diagnosis (1) Below-knee amputation of right lower extremity: Status: Acute (2) Acute on chronic osteomyelitis: Status: Acute (3) Chronic foot ulcer: Status: Acute (4) PAD (peripheral artery disease): Status: Acute DS: Summary Hospital Course Hospital Course: Admission note HPI Pt is a 48-year-old male with a PMH significant for?HTN, [id number] diabetes type 2, GERD, hx of osteomyelitis with multiple toe amputations, hx of MRSA and group C Streptococcus bacteremia, PTSD, and anxiety/depression who presents to the ED from infectious disease office for evaluation of worsening right chronic non-healing diabetic foot ulcers. Pt was recently admitted to the hospital on 10/04-10/09 for acute osteomyelitis of right foot and treated with IV vanco and cefepime, discharged on daptomycin IV up through 11/17/2023. Earlier today patient presented to infectious disease for follow-up appointment and was noted to have worsening wounds and exposed bone on right foot. Patient himself states that he is ?feeling fine? without much of an increase in pain. Patient denies fever, chills, nausea, vomiting, abdominal pain. No chest pain/pressure, palpitations. Denies shortness of breath. Patient states that he has been adherent to his medications and his outpatient appointments. Has VNA services twice a week and goes to wound care 3 times a week. In the ED pt was tahycardic up to 91, vitals otherwise WNL. Labs were significant for leukocytosis 13.8, otherwise grossly unremarkable. Stable H& H. No electrolyte abnormalities. Renal function baseline. Hepatic function baseline. Lactic acid WNL at 1.2. Pt was treated with vancomycin and IVF. Pt will be admitted to the hospital for treatment and further evaluation of acute on chronic osteomyelitis of right foot in a patient with chronic nonhealing diabetic foot ulcers. Hospital course The patient was admitted for treatment of Acute on chronic osteomyelitis of right foot inpatient with chronic nonhealing diabetic foot ulcers and exposed bone in his right foot. He was evaluated by vascular surgeon dr Waggoner who rec ommended below knee amputation that was done successfully. Pain under fair control with dilaudid and increased dose of Gabapentin. blood cultures remained negative. Started on Continue vancomycin and cefepime during the hospital stay. Vascular surgery input appreciated; to follow in office for wound check. To be discharged on Dilaudid, Gabapentin, Flexiril and Doxycycline. Seen by PT team who recommended home PT w VNA. Continue physical therapy at home Follow with dr Waggoner as outpatient in 2 weeks Dilaudid for pain control as needed Increase Gabapentin to 400 mg three times daily Flexeril as needed Time Attestation Discharge coordination time: Greater than 30 minutes Quality: Safe Use of Opioids Does Pt have an Active Cancer Diagnosis on the Problem List?: No Quality: Stroke Does the patient have a stroke diagnosis?: No Physical Exam Vital Signs: Vital Signs: Last Vital Signs Temp 97 F 11/26/23 07:02 Pulse 80 11/26/23 07:02 Resp 16 11/26/23 07:02 BP 111/67 11/26/23 07:02 Pulse Ox 96 11/26/23 07:02 O2 Del Method Room Air 11/26/23 07:02 O2 Flow Rate 3 11/22/23 17:49 BMI result Body Mass Index 26.8 Const: Other: Constitutional : Awake, interactive, anxious Neck : Normal inspection, Supple Cardiovascular : RRR, no JVP, no lower extremity edema Respiratory : good bilateral air entry, no crackles, wheezes or rhonchi Gastrointestinal: soft, lax, Normal bowel sounds, Non tender Skin : Warm, Dry, Right BKA, LEft foot w multiple amputated toes, left foot open wounds covered with dressing Neurological : Alert & oriented x3, No focal deficit DS: Data Data Completed and Pending Completed studies during hospitalization [Text1]: Procedures Detachment at Left 5th Toe, Complete, Open Approach (12/08/22) Insertion of Infusion Device into Superior Vena Cava, Percutaneous Approach (10/04/23) Ultrasonography of Superior Vena Cava, Guidance (10/04/23) Pending studies at discharge: Pending at discharge 11/22/23 16:29 Surgical [PTH] Routine Labs on day of discharge: Laboratory Results - last 24 hr 11/25/23 11/25/23 11/25/23 15:55 16:21 20:17 Hold Purple Top Creatinine Estim Creat Clear Calc Estimated GFR POC Glucose 214 H 177 H Random Vancomycin 16.7 11/26/23 11/26/23 11/26/23 05:02 07:11 11:31 Hold Purple Top SEE NOTE Creatinine 0.79 Estim Creat Clear Calc 113.1 Estimated GFR > 60 POC Glucose 191 H 205 H Random Vancomycin Preliminary micro results at discharge 11/21/23 16:54 Blood Culture - Preliminary Blood - Venous No growth after 48 hours. 11/21/23 16:53 Blood Culture - Preliminary Blood - Venous No growth after 48 hours. Discharge Plan Discharge Anticipated Discharge Date/Time: 11/26/23 12:12 Patient Disposition: Home Health Service Discharge Diagnosis: Below knee amputation Referrals: [facility] [Outside] - 3-5 Days (RESUMPTION OF HOME SERVICES- A NURSE WILL REACH OUT TO YOU TO SET UP VISIT) Suzanne De Paz FNP [Primary Care Provider] - 1 Week Discharge Medications: New gabapentin 400 mg Capsule 400 mg PO TID Qty: 270 0RF cyclobenzaprine 5 mg Tablet 5 mg PO TID PRN (Reason: Muscle spasm) Qty: 90 0RF hydromorphone 2 mg tablet 2 mg PO Q4-6H PRN (Reason: pain (scale score 7-10)) Qty: 30 0RF Rx Instructions: Partial Fill upon patient request. doxycycline monohydrate 100 mg capsule 100 mg PO BID Qty: 10 0RF Continued cholecalciferol (vitamin D3) 50 mcg (2,000 unit) Capsule 50 mcg PO DAILY metformin 500 mg Tablet 500 mg PO BID Trulicity 1.5 mg/0.5 mL Pen Injector 1.5 mg SUBCUT FR ascorbic acid (vitamin C) 500 mg Tablet 500 mg PO DAILY glipizide 5 mg Tablet 5 mg PO DAILY Qty: 30 0RF acetaminophen 500 mg tablet 500 mg PO TID PRN (Reason: Pain) naproxen 500 mg tablet 500 mg PO BID PRN (Reason: Pain) Discontinued gabapentin 100 mg Capsule 200 mg PO TID Discharge Orders: Discharge Order (Routine); Ordered 11/26/23 Ordered By: Beata Dobson Diet: Advance to usual diet Activity on Discharge: As tolerated Stand Alone Forms: Patient Portal Discharge page Activity Restrictions/Additional Instructions: Wound care upon discharge: xeroform, 4x4 and Kerlix wrap to be changed daily. Please call Dr. Waggoner at [phone] for 2 week follow up for suture and staple removal Care Plan Goals: Read below Health Concerns: Read below Plan of Treatment: Read below Assessment: Continue physical therapy at home Follow with dr Waggoner as outpatient in 2 weeks Doxycycline for 5 more day as antibiotic Dilaudid for pain control as needed Increase Gabapentin to 400 mg three times daily Flexeril as needed
--- NOTE | 2023-11-26 13:16 | HO.VASCPN ---
Subjective Subjective Date of Service: 11/26/23 Patient reports: no new complaints and feels better Interval history: Patient is status post BKA. Reports he is doing fairly well. No other interval issues. Pain well controlled. Eager to go home. Continues to be difficult with nursing staff and has reportedly thrown year intervals at the staff. Physical Exam Vital Signs: Vital Signs: Last Vital Signs Temp 97 F 11/26/23 07:02 Pulse 80 11/26/23 07:02 Resp 16 11/26/23 07:02 BP 111/67 11/26/23 07:02 Pulse Ox 96 11/26/23 07:02 O2 Del Method Room Air 11/26/23 07:02 O2 Flow Rate 3 11/22/23 17:49 BMI result Body Mass Index 26.8 Const: General: cooperative, healthy appearing and no acute distress Orientation/consciousness: oriented to person, oriented to place and oriented to time HEENT: Head: Yes normal to inspection Neck: Carotids: no bruits Chest: Chest palpation & inspection: normal inspection of the chest Resp: Effort & Inspection: normal respiratory effort and able to speak in complete sentences Auscultation: clear to auscultation bilaterally Cardio: Rate: regular rate Heart sounds: S1 normal heart sound present and S2 normal heart sound present GI: Inspection: Yes normal to inspection Skin: Other: Stump healing well General skin exam: no rashes or lesions noted Wounds: no wounds Neuro: General: oriented to person, oriented to place, oriented to time and CN's II-XI intact bilaterally Extrem: General: Yes normal to inspection, Yes full ROM and Yes no clubbing, cyanosis or edema Psych: Appearance: grossly normal and well kempt Speech and movement: Normal speech and movement present Affect: normal affect Progress Note: A&P Assessment and plan (1) Below-knee amputation of right lower extremity: Status: Acute Plan In short patient is doing well status post right BKA. Stable from my perspective for discharge. Can see me as an outpatient in 2 weeks for suture and staple removal. In addition at that time we can assess his need for surgery on the left foot. Thank you for allowing us to assist in his care. Time Spent With Patient Time: Total time managing care of this patient today ____ minutes. Procedures Date of Service Date of Service: 11/26/23 Quality Stroke Does the patient have a stroke diagnosis?: No VTE Prior VTE?: No VTE Risk Level:: Medical - moderate - high VTE Device Contraindication: Treatment Not Indicated VTE Drug Contraindication: N/A - Med Ordered
--- NOTE | 2023-11-26 13:36 | W.MHC.F2F ---
Service Date Service Date: 11/26/23 Encounter Date of encounter: 11/26/23 Reasons for Services Signs and symptoms assessed: Right BKA physical decontioning post surgery Reason for care home: wound care and teach disease management Reason for physical therapy: home safety and mobility and therapeutic exercises Homebound: Leaving the home is medically contraindicated at this time without the asist of a device and/or another person due th the listed conditions above and below. Reason homebound: unsteady gait / fall risk Certification: Based on the above findings, I certify that this patient is confined to the home and needs intermittent care home care, physical therapy and/or speech therapy, or continues to need occupational therapy. The patient is under my care, and I have initiated the establishment of the plan of care. The patient will be followed by a physician who will periodically review the plan of care. Time Spent With Patient Time: Total time managing care of this patient today ____ minutes.
--- NOTE | 2023-11-26 13:55 | MHC.CM.PN ---
PT HAS BEEN MEDICALLY CLEARED FOR DC HOME WITH RESUMPTION OF COMFORT + HC. NEW REFERRAL FOR [facility] MADE. [facility] PRODUCTION LINE TECHNICIAN PAU MCGHEE CALLED FOR UPDATE. COMFORT+ NOTIFIED OF TODAY'S DC. RN AWARE. BLS TRANSPORT BOOKED FOR 3:30 PM VIA [employer].
--- NOTE | 2023-11-26 14:52 | HO.WOUND ---
Wound Consult: Initial 48yr old? admitted to [facility] on 11/21/23 - See progress notes and H&P for detailed history.? Wound consult placed for left plantar foot wound. chronic wound treats at out patient wound clinic next appointment scheduled for Sunday patient informed to keep appointment for continued wound assessment of left plantar foot. Patient agreeable to assessment and photo documentation. Accompanied to consultation with Celena Case RN outpatient wound clinic - she discussed with importance for keeping followup appointment for continued wound assessment and treatment. Of note there is a significant amount of bone exposed to the left plantar wound - Celena reports less bone exposed at last outpt appointment. No granulatio tissue is observed around the bone. ? Left Plantar Wound Etiology: ?Diabetic wound ?Present on Admission Measurements:1.5 cm x 1cm x 0.2cm Wound Bed: yellow smooth bone exposed Drainage / Odor: dried serosang drainage noted on dressing when removed Edges: ? epibole Bibiana wound: calloused and small area of maceration noted at 2-4 o'clock? No Induration, Fluctuance or Warmth noted Pain: pt denies - reports neuropathy Goals of Treatment: ? Donate moisture to exposed bone with Cuticerin Recommendations: 1. Turn and Reposition every 2 hours and as needed for patient comfort.? Use pillows or wedges to support off loading positions. 2. Off Load all bony prominences with use of pillows and heel boots if needed.? Apply Preventative foams where needed. ? 3. Monitor for incontinence and moisture control, use barrier creams when needed for prevention and treatment. 4. Provide adequate and supplemental nutrition.? 5. Order or Continue low air loss mattress. 6. When applicable maintain blood glucose levels per Providers order. 7. Left Plantar Wound - Cleanse and irrigate with NS, Pat dry. Apply skin prep to periwound. Cover wound bed / exposed bone with double layer Cuticerin. cover with ABD pad and herlinda wrap. Change every other day. Re-consult wound care Nurse for wound deterioration or wound changes.
[2023-11-26 15:16] VITALS: BP 104/57; PULSE 68; RESP 20; TEMP 36.4; O2SAT 98
--- NOTE | 2023-11-26 15:48 | MHC.CARE ---
Provider requested an consult for depression and outpatient resources. Care team provided resources to pt.
[2023-11-26] MEDS: NaPROXEN 500 MG TABLET PO (17:10)
[2023-11-26] MEDS: ALPRAZolam 0.25 MG TABLET PO (17:10)
[2023-11-26 17:12] LABS: Glucose, Whole Blood 132 mg/dL (60-115)
== END 2023-11-26 18:12 | disposition home health service (06) | DRG 305 ==
LOC: HO.ED 17:17 → HO.EDOVER 19:07 → HO.S3 11-22 07:17
PROVIDERS: Surgery Vascular Surgery; Admitting Provider Student in an Organized Health Care Education/Training Program; Emergency Provider Internal Medicine; PCP Nurse Practitioner Family; Visit Provider Student in an Organized Health Care Education/Training Program
PROC: 0Y6H0Z2 Detachment at Right Lower Leg, Mid, Open Approach (ICD-10-PCS; CPT 27880; principal; 2023-11-22 15:30)
DX: T87.43 Infection of amputation stump, right lower extremity (principal); M86.171 Other acute osteomyelitis, right ankle and foot; E11.42 Type 2 diabetes mellitus with diabetic polyneuropathy; E11.52 Type 2 diabetes mellitus with diabetic peripheral angiopathy with gangrene; E11.621 Type 2 diabetes mellitus with foot ulcer; E11.69 Type 2 diabetes mellitus with other specified complication; Y83.5 Amputation of limb(s) as the cause of abnormal reaction of the patient, or of later complication, without mention of misadventure at the time of the procedure; F43.10 Post-traumatic stress disorder, unspecified; L97.429 Non-pressure chronic ulcer of left heel and midfoot with unspecified severity; G54.6 Phantom limb syndrome with pain; F17.210 Nicotine dependence, cigarettes, uncomplicated; M86.671 Other chronic osteomyelitis, right ankle and foot; Z71.6 Tobacco abuse counseling; Z86.14 Personal history of Methicillin resistant Staphylococcus aureus infection; Z88.0 Allergy status to penicillin; Z79.84 Long term (current) use of oral hypoglycemic drugs; Z79.85 Long-term (current) use of injectable non-insulin antidiabetic drugs; Z79.899 Other long term (current) drug therapy
CPT/HCPCS: 36415; 80048; 80053; 80202; 82565; 82947; 83605; 85025; 85027; 86850; 86900; 86901; 87040; 88307; 88311; 97162; 99285; J0692; J1170; J1650; J1885; J2060; J2250; J2270; J2704; J2795; J3010; J3370

== ENCOUNTER → 2023-11-21 18:43 | Outpatient (BNV) | payer OTHER, SELFPAY | PROVIDERS: Admitting Provider Student in an Organized Health Care Education/Training Program; Emergency Provider Internal Medicine; Visit Provider Student in an Organized Health Care Education/Training Program | DX: M86.171 Other acute osteomyelitis, right ankle and foot (principal); M86.671 Other chronic osteomyelitis, right ankle and foot; E11.621 Type 2 diabetes mellitus with foot ulcer; Z89.511 Acquired absence of right leg below knee | CPT/HCPCS: 99223; 99232; 99233; 99238; G0180 ==

== ENCOUNTER → 2023-11-21 18:43 | Outpatient (BNV) | payer OTHER, SELFPAY | PROVIDERS: Admitting Provider Student in an Organized Health Care Education/Training Program; Emergency Provider Internal Medicine; Visit Provider Surgery Vascular Surgery | DX: S88.111A Complete traumatic amputation at level between knee and ankle, right lower leg, initial encounter (principal) | CPT/HCPCS: 27880; 99024; 99222 ==

== ENCOUNTER 2023-12-20 11:51 | Emergency (ER) | payer OTHER, SELFPAY ==
--- NOTE | 2023-12-20 12:00 | ED.GENADULT ---
HPI - General Adult General Chief complaint: General Medical Stated complaint: ELEVATED WHITE COUNT Time Seen by Provider: 12/20/23 11:58 Source: patient, EMS and old records reviewed Mode of arrival: EMS Limitations: no limitations History of Present Illness HPI narrative: 48 yo male with history of osteomyelitis w/ MRSA and Group G Strep infection left foot (follows w/ wound care & ID), s/p right BKA 1 month ago here by Dr. Waggoner, DM, GERD, HTN, who presents to the ER from home via EMS for evaluation of elevated WBC on outpatient labs. He states his PCP trista routine labs and his WBC was elevated at 10.9. He was worried about infection. He has been seeing wound care for left foot. It was slightly red yesterday with VNA services during dressing change. He denies fever, drainage, or other signs/symptoms of infection. MD complaint: elevated WBC Associated symptoms: denies other symptoms Treatments prior to arrival: none Related Data Home Medications Medication Instructions Recorded Confirmed cholecalciferol (vitamin D3) 50 50 mcg PO DAILY 11/04/21 11/21/23 mcg (2,000 unit) capsule metformin 500 mg tablet 500 mg PO BID 10/06/22 11/21/23 ascorbic acid (vitamin C) 500 mg 500 mg PO DAILY 11/29/22 11/21/23 tablet dulaglutide 1.5 mg/0.5 mL 1.5 mg subcut FR 11/29/22 11/21/23 subcutaneous pen injector (Trulicity) acetaminophen 500 mg tablet 500 mg PO TID PRN Pain 11/21/23 11/21/23 naproxen 500 mg tablet 500 mg PO BID PRN Pain 11/21/23 11/21/23 Previous Rx's Medication Instructions Recorded glipizide 5 mg tablet 5 mg PO DAILY #30 tabs 10/10/23 cyclobenzaprine 5 mg tablet 5 mg PO TID PRN Muscle spasm #90 11/26/23 tabs doxycycline monohydrate 100 mg 100 mg PO BID #10 caps 11/26/23 capsule gabapentin 400 mg capsule 400 mg PO TID #270 caps 11/26/23 hydromorphone 2 mg tablet 2 mg PO Q4-6H PRN pain (scale 11/26/23 score 7-10) #30 tabs Allergies Allergy/AdvReac Type Severity Reaction Status Date / Time amoxicillin [AMOXICILLIN] Allergy Severe ANAPHYLAXIS Verified 12/20/23 12:09 oxycodone [From Tylox] Allergy Intermediate Itching Verified 12/20/23 12:09 hydrocodone [HYDROCODONE] Allergy Unknown UNKNOWN Verified 12/20/23 12:09 acetaminophen [From Tylox] Allergy Itching Verified 12/20/23 12:09 Review of Systems Review of Systems: Yes all other systems are reviewed and are negative [facility] Past Medical History Medical History (Updated 12/20/23 @ 13:03 by KADE Rutherford) Below-knee amputation of right lower extremity Chronic foot ulcer PAD (peripheral artery disease) Mood disorder Anxiety Nausea and vomiting Acute osteomyelitis of left foot Marijuana smoker MRSA (methicillin resistant Staphylococcus aureus) GERD (gastroesophageal reflux disease) Bacteremia due to Streptococcus Posttraumatic stress disorder Staphylococcus aureus bacteremia 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 Bacterial infection due to Streptococcus, group C Acidosis, lactic Cellulitis Right foot infection Anxiety Diabetes type 2, controlled Surgical History History of tonsillectomy History of amputation (12/11/22) History of partial amputation of toe (10/11/22) History of incision and drainage History of laparoscopic cholecystectomy Social History Social History Household Members: None Housing: Apartment Housing Other:: refused to answer Do you presently have visiting nurse or other home services: Yes Unable to assess alcohol history related to: Refusing to respond Alcohol intake: current Alcohol intake frequency: holidays/special occasions only Alcohol type: wine Comment: refuses alarms, camera. Education provided about safety Patient Tobacco Use Status: Current everyday Tobacco user Tobacco use type: Cigarette Cigarette Packs Per Day: 0.5 Cigarettes Per Day: 10.0 Years Smoked: 36 years Second Hand Smoke Exposure: No Substance Use Type: Marijuana Advance Directives: No service: No Current occupational status: disabled Physical Exam ED Vital Signs: Vital Signs - 24 hr 12/20/23 12:10 Temperature 98.7 F Pulse Rate 87 Respiratory Rate 18 Blood Pressure 119/72 Pulse Oximetry 100 Oxygen Delivery Method Room Air BMI result Body Mass Index 25.1 Appearance: Alert. Oriented X3. No acute distress. HEENT: normal inspection CVS: Normal heart rate and rhythm. Pulses normal. Respiratory: No respiratory distress. Skin: Skin warm and dry. Normal skin color. Normal skin turgor. No rashes. Extremities: right BKA healing appropriately w/ sutures and armin in place. minimal erythema along the suture line, no warmth, fluctuance, or drainage. nontender. left foot s/p multiple toe amputations, chronic, dry wound a the head of the metatarsals on the base of the foot, no erythema or drainage. nontender. Neuro: Oriented X 3. nonfocal Medical Decision Making Medical Decision Making [facility] Narrative: 48 yo male with history of osteomyelitis w/ MRSA and Group G Strep infection left foot (follows w/ wound care & ID), s/p right BKA 1 month ago here by Dr. Waggoner, DM, GERD, HTN, who presents to the ER from home via EMS for evaluation of elevated WBC on outpatient labs. afebrile on arrival. exam is reassuring, no evidence of active infection. he is healing well post operatively from his BKA 11/22. WBC 10.8. lactic normal photos of right BKA wounds sent to Dr. Waggoner - recommends staple and suture removal in the office as outpatient stable for d/c home with outpatient follow up Differential Diagnosis Differential Diagnoses: The differential diagnosis associated with the presentation includes sepsis, acute on chronic infection, stress reaction, local infection, viral infectionl lab error Admission/Observation Consideration of admission/observation: Escalation of care including admission/observation considered hx sepsis and bacteremia, considered admit for IV abx given history Lab Data [facility] Lab Attestation statement: I reviewed the patient's lab results. no leukocytosis 12/20/23 12:35 12/20/23 12:35 Labs: Lab Results 12/20/23 Range/Units 12:35 WBC 10.8 (4.8-10.8) X10*3/uL RBC 5.72 (4.60-5.80) X10*6/uL Hgb 15.4 (14.0-18.0) g/dl Hct 47.5 (42.0-52.0) % MCV 83.0 (80.0-98.0) fL MCH 26.9 L (27.0-33.0) pg MCHC 32.4 (31.0-36.0) g/dl RDW 15.4 (11.0-16.0) % Plt Count 338 (160-400) X10*3/uL MPV 8.5 L (9.4-12.4) fL Immature Gran % (Auto) 0.6 H (0.0-0.4) % Neut % (Auto) 73.9 H (45-73) % Lymph % (Auto) 18.1 L (20-40) % Major % (Auto) 6.4 (2-11) % Eos % (Auto) 0.5 (0-4) % Baso % (Auto) 0.5 (0-2) % Lymph # (Auto) 2.0 (1.2-4.9) X10*3/uL Major # (Auto) 0.7 (0.1-1.2) X10*3/uL Eos # (Auto) 0.1 (0.0-0.4) X10*3/uL Baso # (Auto) 0.1 (0.0-0.2) X10*3/uL Abs Immat Gran (auto) 0.06 H (0.00-0.03) X10*3/uL Absolute Neuts (auto) 8.0 (2.0-8.3) x10*3/uL Absolute Nucleated RBC 0.000 (0.0-0.012) X10*3/uL Nucleated RBC % (auto) 0.0 (0.0-0.2) /100WBC Lactic Acid 1.6 (0.5-2.0) mmol/L Urine Color Yellow Urine Appearance Clear Urine pH 6.5 (5.0-9.0) Ur Specific [place] <= 1.005 (1.005-1.025) Urine Protein Negative (Neg-Trace) mg/dL Urine Glucose (UA) 100 H (Negative) mg/dL Urine Ketones Negative (Negative) mg/dL Urine Blood Negative (Negative) Urine Nitrite Negative (Negative) Ur Leukocyte Esterase Negative (Negative) Independent Historian Clinical information obtained from an independent historian. History obtained from or confirmed by: EMS External Record Review External record reviewed: Inpatient record, Outpatient record and Prior outpatient labs Tests considered The following testing was considered but not selected: xray foot considered but no signs of infection Prescription Management I considered prescription management with: Pain Medication and Antibiotic Chronic Conditions Patient?s care impacted by: Diabetes Social Determinants Patient?s care significantly limited by Social Determinants of Health including: Other Social Determinant of Health does not have rides to appointments Critical Care Time Critical Care Time Critical Care Time: No Discharge Plan Discharge Clinical Impression: Below knee amputation Qualifiers: Encounter type: subsequent encounter Laterality: right Qualified Code(s): S88.111D - Complete traumatic amputation at level between knee and ankle, right lower leg, subsequent encounter Patient Disposition: Home, Self-Care Instructions: Below the Knee Amputation (DC) Additional Instructions: your labs and examination today were reassuring. no signs of infection follow up with your PCP follow up with Dr. Waggoner for staple and suture removal If you develop new or worsening symptoms call 911 or come back to the ER for further evaluation. Prescriptions: No Action cholecalciferol (vitamin D3) 50 mcg (2,000 unit) Capsule 50 mcg PO DAILY metformin 500 mg Tablet 500 mg PO BID Trulicity 1.5 mg/0.5 mL Pen Injector 1.5 mg SUBCUT FR ascorbic acid (vitamin C) 500 mg Tablet 500 mg PO DAILY glipizide 5 mg Tablet 5 mg PO DAILY Qty: 30 0RF acetaminophen 500 mg tablet 500 mg PO TID PRN (Reason: Pain) naproxen 500 mg tablet 500 mg PO BID PRN (Reason: Pain) gabapentin 400 mg Capsule 400 mg PO TID Qty: 270 0RF cyclobenzaprine 5 mg Tablet 5 mg PO TID PRN (Reason: Muscle spasm) Qty: 90 0RF hydromorphone 2 mg tablet 2 mg PO Q4-6H PRN (Reason: pain (scale score 7-10)) Qty: 30 0RF Rx Instructions: Partial Fill upon patient request. doxycycline monohydrate 100 mg capsule 100 mg PO BID Qty: 10 0RF Referrals: [facility] [Provider Group]
[2023-12-20 12:09] VITALS: BP 117/60; PULSE 88; O2SAT 99
[2023-12-20 12:10] VITALS: BP 119/72; PULSE 87; RESP 18; TEMP 37.1; O2SAT 100; BMI 25.1
[2023-12-20 12:47] LABS: MANUAL DIFF FLAG NO
[2023-12-20 12:48] LABS: Basophils Absolute Auto 0.1 X10*3/uL (0.0-0.2); Basophils Percent Auto 0.5 % (0-2); Eosinophils Absolute Auto 0.1 X10*3/uL (0.0-0.4); Eosinophils Percent Auto 0.5 % (0-4); Hematocrit 47.5 % (42.0-52.0); Hemoglobin 15.4 g/dl (14.0-18.0); Imm Gran Abs Auto 0.06 X10*3/uL (0.00-0.03); Imm Gran Pct Auto 0.6 % (0.0-0.4); Lymphocytes Percent Auto 18.1 % (20-40); Mean Corpuscular HGB Conc 32.4 g/dl (31.0-36.0); Mean Corpuscular Hemoglobin 26.9 pg (27.0-33.0); Mean Platelet Volume 8.5 fL (9.4-12.4); Monocytes Absolute Auto 0.7 X10*3/uL (0.1-1.2); Monocytes Percent Auto 6.4 % (2-11); Neutrophils Percent Auto 73.9 % (45-73); Platelet Count 338 X10*3/uL (160-400); Red Blood Count 5.72 X10*6/uL (4.60-5.80); Red Cell Distribution Width 15.4 % (11.0-16.0); White Blood Count 10.8 X10*3/uL (4.8-10.8)
[2023-12-20 12:49] LABS: Appearance Urine Clear; Color Urine Yellow; Glucose Urine UA 100 mg/dL (Negative); Leukocyte Esterase Urine Negative (Negative); Nitrite Urine Negative (Negative); PH 6.5 (5.0-9.0); Specific Gravity - Urine <= 1.005 (1.005-1.025); Urine Blood Negative (Negative); Urine Ketones Negative (Negative); Urine Protein Negative (Neg-Trace)
--- NOTE | 2023-12-20 12:55 | PC.NURSE ---
patient a&ox3, vss, iv inserted, labs drawn, pt wounds assessed- rt BKA armin/stitches intact, lt foot wound healing.
[2023-12-20 12:58] LABS: Lactic Acid 1.6 mmol/L (0.5-2.0)
--- NOTE | 2023-12-20 13:00 | PC.NURSE ---
patient a&ox3, denies pain/discomfort, rbka and lt foot dressings applied-dry sterile dressing, call hi within reach, will continue to monitor
--- NOTE | 2023-12-20 13:30 | PC.NURSE ---
pt awaiting ambulance to discharge to home- pt wheelchair baseline. pt diet ordered and given lunch as ambulance to not pick him up until 1730
[2023-12-20 13:32] LABS: Erythrocyte Sedimentation Rate 28 MM/HR (0-15)
[2023-12-20 17:25] VITALS: BP 118/68; PULSE 78; RESP 18; TEMP 36.7; O2SAT 100
== END 2023-12-20 17:26 | disposition home or self-care (01) ==
PROVIDERS: Physician Assistant; Emergency Provider Emergency Medicine
DX: Z48.00 Encounter for change or removal of nonsurgical wound dressing (principal); Z79.899 Other long term (current) drug therapy
CPT/HCPCS: 36415; 81003; 83605; 85025; 85652; 87040; 99283

== ENCOUNTER 2024-01-01 12:48 | Outpatient (AMB) | payer OTHER, SELFPAY ==
--- NOTE | 2024-01-01 12:50 | A.OFFVIS_ITS ---
Intake Vital Signs 01/01/24 12:52 Height 5 ft 8 in Weight 165 lb BMI 25.1 Intake Visit Reasons: Follow Up amp , staple removal Intake Note: Right LE BKA 11/22/23, staple removal and suture removal Accompanied by: ambulance drivers Allergies amoxicillin [AMOXICILLIN] Allergy (Severe, Verified 01/01/24 12:58) ANAPHYLAXIS oxycodone [From Tylox] Allergy (Intermediate, Verified 01/01/24 12:58) Itching hydrocodone [HYDROCODONE] Allergy (Unknown, Verified 01/01/24 12:58) UNKNOWN acetaminophen [From Tylox] Allergy (Verified 01/01/24 12:58) Itching HPI Follow Up amp , staple removal HPI Details Complex 48-year-old gentleman presents for follow-up status post right BKA. Appears to be doing extremely well. Left lower extremity actually appears to be doing well also. [facility]. It continues to progress nicely and the left foot appears to be closing. Now presents for follow-up regarding his right BKA. [facility] Medical History (Updated 01/01/24 @ 13:52 by Jose Waggoner MD) PAD (peripheral artery disease) Below-knee amputation of right lower extremity Chronic foot ulcer Mood disorder Anxiety Nausea and vomiting Acute osteomyelitis of left foot Marijuana smoker MRSA (methicillin resistant Staphylococcus aureus) GERD (gastroesophageal reflux disease) Bacteremia due to Streptococcus Posttraumatic stress disorder Staphylococcus aureus bacteremia Diabetic foot ulcer associated with diabetes mellitus due to underlying cond ition Bacterial infection due to Streptococcus, group C Acidosis, lactic Cellulitis Right foot infection Anxiety Diabetes type 2, controlled Surgical History (Updated 01/01/24 @ 13:52 by Jose Waggoner MD) History of tonsillectomy History of amputation (12/11/22) History of partial amputation of toe (10/11/22) History of incision and drainage History of laparoscopic cholecystectomy Social History Household Members: None Housing: Apartment Housing Other:: refused to answer Do you presently have visiting nurse or other home services: Yes Unable to assess alcohol history related to: Refusing to respond Alcohol intake: current Alcohol intake frequency: holidays/special occasions only Alcohol type: wine Comment: refuses alarms, camera. Education provided about safety Patient Tobacco Use Status: Current everyday Tobacco user Tobacco use type: Cigarette Cigarette Packs Per Day: 0.5 Cigarettes Per Day: 10.0 Years Smoked: 36 years Second Hand Smoke Exposure: No Substance Use Type: Marijuana service: No Current occupational status: disabled Review of Systems Const All systems reviewed & are unremarkable except as noted in HPI and below Reports no additional complaints ENT Reports Normal hearing present Card Denies chest pain, Denies chest pain at rest, Denies chest pain with activity and Denies pedal edema Resp Denies cough GI Denies abdominal pain Musc Denies abnormal gait, Denies muscle cramps and Denies radiating pain into limb Skin/Breast Denies skin ulcer and Denies wounds Neuro Reports Normal hearing present and Denies abnormal gait Psych Reports no additional complaints Physical Exam Vital Signs: BMI result Body Mass Index 25.1 Const General: cooperative, healthy appearing and comfortable Orientation/consciousness: oriented to person, oriented to place and oriented to time HEENT Head: Yes normal to inspection Neck Neck: Yes normal visual inspection Carotids: no bruits Chest Chest palpation & inspection: normal inspection of the chest Resp Effort & Inspection: normal respiratory effort and able to speak in complete sentences Auscultation: clear to auscultation bilaterally, no crackles, no rales, no rhonchi and no wheezes Cardio Rate: regular rate Rhythm: regular rhythm Heart sounds: S1 normal heart sound present and S2 normal heart sound present Bruits: no carotid bruits Peripheral pulses: Peripheral pulses 2+ throughout GI Inspection: Yes normal to inspection Skin Other: Right BKA stump well-healed sutures and armin removed. Left foot plantar aspect proximally 0.2 cm opening Wounds: no wounds Hair: normal Neuro General: oriented to person, oriented to place and oriented to time Cranial nerves: Yes CN's II-XII intact bilaterally and Yes Normal hearing present Cognition (Neuro): normal cognition Motor exam (neuro): 5/5 motor strength present throughout Extrem Other: venous exam: No significant superficial varicosities or spider telangiectasias, minimal edema General: No clubbing, No cyanosis and No edema Psych Appearance: grossly normal Mental Status: mental status grossly normal Speech and movement: Normal speech and movement present Assessment & Plan Assessment & Plan (1) Status post below knee amputation of right lower extremity: Code(s): Z89.511 - Acquired absence of right leg below knee Plan: In short patient is status post right BKA. Appears to be doing extremely well. Will plan for prosthetic fitting and placement. We will place referral. I do think that he an active gentleman that will require an advance prosthetic beyond simple low local motion. (2) PAD (peripheral artery disease): Code(s): I73.9 - Peripheral vascular disease, unspecified Plan: We will continue to surveil the left lower extremity. Will plan for 3 month surveillance arterial follow-up of the left leg. Orders: Orders US arterial duplex LE LT 3 Months I73.9 - Peripheral vascular disease, unspecified Coding Level of Care Code Est Pt Level 4 (39107) Diagnoses Status post below knee amputation of right lower extremity Z89.511 PAD (peripheral artery disease) I73.9
[2024-01-01 12:52] VITALS: BMI 25.1
== END 2024-01-01 13:22 | disposition home or self-care (01) ==
PROVIDERS: Visit Provider Surgery Vascular Surgery
DX: Z89.511 Acquired absence of right leg below knee (principal); I73.9 Peripheral vascular disease, unspecified
CPT/HCPCS: 99024

== ENCOUNTER → 2024-01-01 12:48 | Outpatient (BNVA) | payer OTHER, SELFPAY | PROVIDERS: Visit Provider Surgery Vascular Surgery | DX: I73.9 Peripheral vascular disease, unspecified (principal); Z89.511 Acquired absence of right leg below knee | CPT/HCPCS: 99212 ==

== ENCOUNTER 2024-01-02 04:39 | Emergency (ER) | payer OTHER, SELFPAY ==
[2024-01-02 05:00] VITALS: BP 136/80; BP 140/78; PULSE 109; PULSE 96; RESP 18; TEMP 37.1; O2SAT 100; BMI 24.7
--- NOTE | 2024-01-02 06:38 | ED.GENADULT ---
HPI - General Adult General Chief complaint: General Medical Stated complaint: LEG PAIN Time Seen by Provider: 01/02/24 06:36 Source: patient and EMS Mode of arrival: EMS Limitations: no limitations History of Present Illness HPI narrative: Patient is a 48 year old assigned male at with a history of DM, GERD, HTN, and recent right BKA presenting to the emergency department today with right groin pain. Patient states that over the last few weeks he has had right sided groin pain that radiates into his right buttock. Patient states that he has been using flexeril but it isn't helping. Patient states he would like a different muscle relaxer. Patient denies any dizziness, lightheadedness, abdominal pain, nausea, vomiting, fever, chills, blurry vision, double vision, loss of vision, chest pain, difficulty breathing, shortness of breath, back pain, night sweats, pain with urination, increased urinary frequency, increased urinary urgency, blood in his urine or stool, syncope or a near syncopal episode, recent trauma or falls, bowel incontinence, bladder incontinence, bowel retention, bladder retention, or any other complaints at this time. Onset (ago): day(s) Location: right and lower extremity Severity: mild Severity scale (1-10): 3 Related Data Home Medications Medication Instructions Recorded Confirmed cholecalciferol (vitamin D3) 50 50 mcg PO DAILY 11/04/21 11/21/23 mcg (2,000 unit) capsule metformin 500 mg tablet 500 mg PO BID 10/06/22 11/21/23 ascorbic acid (vitamin C) 500 mg 500 mg PO DAILY 11/29/22 11/21/23 tablet dulaglutide 1.5 mg/0.5 mL 1.5 mg subcut FR 11/29/22 11/21/23 subcutaneous pen injector (Trulicity) acetaminophen 500 mg tablet 500 mg PO TID PRN Pain 11/21/23 11/21/23 naproxen 500 mg tablet 500 mg PO BID PRN Pain 11/21/23 11/21/23 Previous Rx's Medication Instructions Recorded glipizide 5 mg tablet 5 mg PO DAILY #30 tabs 10/10/23 cyclobenzaprine 5 mg tablet 5 mg PO TID PRN Muscle spasm #90 11/26/23 tabs doxycycline monohydrate 100 mg 100 mg PO BID #10 caps 11/26/23 capsule gabapentin 400 mg capsule 400 mg PO TID #270 caps 11/26/23 hydromorphone 2 mg tablet 2 mg PO Q4-6H PRN pain (scale 11/26/23 score 7-10) #30 tabs methocarbamol 500 mg tablet 500 mg PO TID #10 tabs 01/02/24 Allergies Allergy/AdvReac Type Severity Reaction Status Date / Time amoxicillin [AMOXICILLIN] Allergy Severe ANAPHYLAXIS Verified 01/02/24 04:59 oxycodone [From Tylox] Allergy Intermediate Itching Verified 01/02/24 04:59 hydrocodone [HYDROCODONE] Allergy Unknown UNKNOWN Verified 01/02/24 04:59 acetaminophen [From Tylox] Allergy Itching Verified 01/02/24 04:59 Review of Systems Constitutional: Constitutional: Reports no additional constitutional complaints, Denies chills, Denies fever(s) and Denies night sweats Eyes: Eyes: Reports no additional eye complaints, Denies blurry vision, Denies change in vision, Denies diplopia, Denies eye discharge, Denies loss of vision and Denies eye pain ENT: Denies dizziness Cardiovascular: Cardiovascular: Reports no additional cardiovascular complaints, Denies chest pain, Denies lightheadedness, Denies Loss of Consciousness and Denies dyspnea Respiratory: Respiratory: Reports no additional respiratory complaints and Denies dyspnea Gastrointestinal: Gastrointestinal: Reports no additional gastrointestinal complaints, Denies abdominal pain, Denies melena, Denies hematochezia, Denies change in bowel habits and Denies change in stool character Genitourinary: Genitourinary: Reports no additional male genitourinary complaints, Denies hematuria, Denies oliguria, Denies difficulty urinating, Denies dysuria, Denies urinary frequency, Denies urinary hesitancy, Denies urinary incontinence and Denies urinary urgency Musculoskeletal: Musculoskeletal: Reports no additional musculoskeletal complaints, Denies numbness and Denies tingling Comments: right groin pain Neurologic: Denies dizziness, Denies loss of vision, Denies numbness and Denies tingling Psychiatric: Psychiatric: Reports no additional psychiatric complaints Endocrine: Endocrine: Reports no additional endocrine complaints Hematologic/Lymphatic: Hematologic/Lymphatic: Reports no additional hematologic/lymphatic complaints Allergic/Immunologic: Allergic/Immunologic: Reports no additional allergic/immunologic complaints PMFSH Past Medical History Attestation statement: The following information was validated with the patient. Source: old records reviewed and nursing notes reviewed Medical History PAD (peripheral artery disease) Below-knee amputation of right lower extremity Chronic foot ulcer Mood disorder Anxiety Nausea and vomiting Acute osteomyelitis of left foot Marijuana smoker MRSA (methicillin resistant Staphylococcus aureus) GERD (gastroesophageal reflux disease) Bacteremia due to Streptococcus Posttraumatic stress disorder Staphylococcus aureus bacteremia 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 Bacterial infection due to Streptococcus, group C Acidosis, lactic Cellulitis Right foot infection Anxiety Diabetes type 2, controlled Surgical History History of tonsillectomy History of amputation (12/11/22) History of partial amputation of toe (10/11/22) History of incision and drainage History of laparoscopic cholecystectomy Social History Social History Household Members: None Housing: Apartment Housing Other:: refused to answer Do you presently have visiting nurse or other home services: Yes Unable to assess alcohol history related to: Refusing to respond Alcohol intake: current Alcohol intake frequency: holidays/special occasions only Alcohol type: wine Comment: refuses alarms, camera. Education provided about safety Patient Tobacco Use Status: Current everyday Tobacco user Tobacco use type: Cigarette Cigarette Packs Per Day: 0.5 Cigarettes Per Day: 10.0 Years Smoked: 36 years Second Hand Smoke Exposure: No Substance Use Type: Marijuana Advance Directives: No Advance Directives Information Provided: No service: No Current occupational status: disabled Physical Exam ED Vital Signs: Vital Signs - 24 hr 01/02/24 05:00 01/02/24 08:50 01/02/24 08:54 Temperature 98.7 F 98.7 F 98 F Pulse Rate 96 55 18 L Respiratory Rate 18 18 18 Blood Pressure 136/80 144/69 H 144/69 H Pulse Oximetry 100 98 98 Oxygen Delivery Method Room Air Room Air BMI result Body Mass Index 24.7 Const General: cooperative, no acute distress, alert and awake Nutritional Appearance: well nourished Orientation/consciousness: patient oriented x3 Limitations: no limitations HENMT Head: Yes normal to inspection and Yes atraumatic Ears: hearing grossly normal bilaterally and external ears normal General nose exam: Normal external nose present, no nasal discharge noted and no epistaxis Face and sinus: Yes normal facial exam, No abrasion and No laceration Mouth: Normal oral and palatal mucosa present, no drooling and no muffled voice Eyes General: appearance normal, both eyes and all related structures Periorbital: periorbital findings normal Eyelids: Yes eyelids normal Conjunctivae: conjunctivae normal Pupils: Equal, round and reactive pupils present EOM: EOMs intact bilaterally Neck Neck: Yes normal visual inspection, Yes full ROM and Yes no lymphadenopathy Chest Chest palpation & inspection: normal inspection of the chest Resp Effort & Inspection: normal respiratory effort and able to speak in complete sentences GI Inspection: Yes normal to inspection Neuro General: patient oriented x3 and moves all extremities Cranial nerves: Yes Equal, round and reactive pupils present Cognition (Neuro): normal cognition Motor exam (neuro): 5/5 motor strength present throughout Sensory Exam: Normal double simultaneous stimulation for sensation Coordination: [id number] test normal Extrem Other: Right BKA wound healing well Psych Appearance: grossly normal Mental Status: mental status grossly normal Affect: normal affect Attitude: cooperative Thought process: Normal thought process present Thought content: Normal thought content present Insight: Good insight present (Psych) Medical Decision Making Medical Decision Making MDM Narrative: Patient is a 48 year old assigned male at with a history of DM, GERD, HTN, and recent right BKA presenting to the emergency department today with right thigh / groin pain. Patient's physical exam was as noted in the physical exam portion of this note. I explained my physical exam findings to the patient. I answered all questions asked by the patient. I stressed the importance of the patient taking his medication as prescribed. I stressed the importance of the patient following up with his primary care provider. I stressed the importance of the patient returning to the emergency department immediately if his symptoms were to worsen or if he were to develop any dizziness, shortness of breath, difficulty breathing, chest pain, blurry vision, loss of vision, nausea, vomiting, abdominal pain, fever, chills, back pain, or any other complaints. Patient verbalized agreement and understanding with this treatment plan and discharge. Differential Diagnosis Differential Diagnoses: The differential diagnosis associated with the presentation includes Right groin pain Right quad muscle spasm Muscle strain Muscle sprain Admission/Observation Consideration of admission/observation: Escalation of care including admission/observation considered Patient would have been admitted to the hospital had his work up had any findings where hospital admission was appropriate and his clinical presentation warranted hospital admission. Independent Historian Clinical information obtained from an independent historian. History obtained from or confirmed by: EMS (EMS provided additional history and confirmed the history provided by the patient.) Prescription Management I considered prescription management with: Pain Medication (patient prescribed alternative muscle relaxer to flexeril) Discharge Plan Discharge Clinical Impression: Muscle spasm Patient Disposition: Home, Self-Care Instructions: Muscle Spasm (ED) Additional Instructions: Continue with the flexeril you're prescribed. Continue using heat to the area. Follow up with your primary care provider. Return to the emergency department immediately if your symptoms worsen or if you develop any dizziness, shortness of breath, difficulty breathing, chest pain, blurry vision, loss of vision, nausea, vomiting, abdominal pain, fever, chills, back pain, or any other complaints. Prescriptions: New methocarbamol 500 mg tablet 500 mg PO TID Qty: 10 0RF No Action cholecalciferol (vitamin D3) 50 mcg (2,000 unit) Capsule 50 mcg PO DAILY metformin 500 mg Tablet 500 mg PO BID Trulicity 1.5 mg/0.5 mL Pen Injector 1.5 mg SUBCUT FR ascorbic acid (vitamin C) 500 mg Tablet 500 mg PO DAILY glipizide 5 mg Tablet 5 mg PO DAILY Qty: 30 0RF acetaminophen 500 mg tablet 500 mg PO TID PRN (Reason: Pain) naproxen 500 mg tablet 500 mg PO BID PRN (Reason: Pain) gabapentin 400 mg Capsule 400 mg PO TID Qty: 270 0RF cyclobenzaprine 5 mg Tablet 5 mg PO TID PRN (Reason: Muscle spasm) Qty: 90 0RF hydromorphone 2 mg tablet 2 mg PO Q4-6H PRN (Reason: pain (scale score 7-10)) Qty: 30 0RF Rx Instructions: Partial Fill upon patient request. doxycycline monohydrate 100 mg capsule 100 mg PO BID Qty: 10 0RF Referrals: Jose Waggoner MD [Physician] - Suzanne De Paz FNP [Primary Care Provider] - Interventions: ED Discharge Assessment Last Done: 01/02/24 08:54 Discharge Date/Time: 01/02/24 08:55 Print Language: Luxembourger
[2024-01-02 08:50] VITALS: BP 144/69; PULSE 55; RESP 18; TEMP 37.1; O2SAT 98
[2024-01-02 08:54] VITALS: BP 144/69; PULSE 18; RESP 18; TEMP 36.6; O2SAT 98
== END 2024-01-02 08:55 | disposition home or self-care (01) ==
PROVIDERS: Emergency Provider Emergency Medicine; PCP Nurse Practitioner Family
DX: M62.838 Other muscle spasm (principal); E11.9 Type 2 diabetes mellitus without complications; I10 Essential (primary) hypertension; Z89.511 Acquired absence of right leg below knee; Z88.0 Allergy status to penicillin; Z88.5 Allergy status to narcotic agent
CPT/HCPCS: 99283

== ENCOUNTER 2024-05-06 09:44 | Outpatient (REF) | payer OTHER, SELFPAY ==
--- NOTE | ~2024-05-06 | US_ITS ---
EXAMINATION: US NONINVASIVE ASSESSMENT OF THE ARTERIES OF LEFT LOWER EXTREMITY INCLUDING PVR EXAM AND LEFT LOWER EXTREMITY DUPLEX. CLINICAL INFORMATION: Peripheral vascular disease COMPARISON: None TECHNIQUE: Ankle pulse volume recordings, ankle pressure measurements and ankle brachial indices were obtained of the lower extremity arterial system on the left in addition to duplex Doppler techniques with wave form analysis and measurement of velocities in the common femoral, profunda femoral, superficial femoral, popliteal, tibial and peroneal arteries. The study was performed only at rest. FINDINGS: LEFT LE. THE LEFT ANKLE-BRACHIAL INDEX IS: 1.04 >0.97-1.25 = normal - no significant arterial disease 0.75-0.96 = mild peripheral arterial disease 0.5-0.74 = moderate peripheral arterial disease <0.50 = severe peripheral arterial disease <0.30 = critical arterial disease 2. SEGMENTAL PRESSURES: Ankle: PT 117, DP 102 3. PVR WAVEFORMS: Ankle: Normal 4. DIRECT DUPLEX: Common femoral artery: 139 cm/s, Multiphasic Profunda femoris artery: 134 cm/s, Multiphasic Superficial femoral artery (proximal): 89 cm/s, Multiphasic Superficial femoral artery (mid): 93 cm/s, Multiphasic Superficial femoral artery (distal): 87 cm/s, Multiphasic Proximal Popliteal artery: 106 cm/s, Multiphasic Anterior tibial artery: 118 cm/s, Multiphasic Posterior tibial artery: 87 cm/s, Multiphasic Dorsalis pedis artery: 39 cm/s, Multiphasic US/US arterial duplex LE LT IMPRESSION: Normal resting peripheral arterial testing without evidence of hemodynamically significant stenosis of the left lower extremity.
--- NOTE | ~2024-05-06 | US_ITS ---
EXAMINATION: US NONINVASIVE ASSESSMENT OF THE ARTERIES OF LEFT LOWER EXTREMITY INCLUDING PVR EXAM AND LEFT LOWER EXTREMITY DUPLEX. CLINICAL INFORMATION: Peripheral vascular disease COMPARISON: None TECHNIQUE: Ankle pulse volume recordings, ankle pressure measurements and ankle brachial indices were obtained of the lower extremity arterial system on the left in addition to duplex Doppler techniques with wave form analysis and measurement of velocities in the common femoral, profunda femoral, superficial femoral, popliteal, tibial and peroneal arteries. The study was performed only at rest. FINDINGS: LEFT LE. THE LEFT ANKLE-BRACHIAL INDEX IS: 1.04 >0.97-1.25 = normal - no significant arterial disease 0.75-0.96 = mild peripheral arterial disease 0.5-0.74 = moderate peripheral arterial disease <0.50 = severe peripheral arterial disease <0.30 = critical arterial disease 2. SEGMENTAL PRESSURES: Ankle: PT 117, DP 102 3. PVR WAVEFORMS: Ankle: Normal 4. DIRECT DUPLEX: Common femoral artery: 139 cm/s, Multiphasic Profunda femoris artery: 134 cm/s, Multiphasic Superficial femoral artery (proximal): 89 cm/s, Multiphasic Superficial femoral artery (mid): 93 cm/s, Multiphasic Superficial femoral artery (distal): 87 cm/s, Multiphasic Proximal Popliteal artery: 106 cm/s, Multiphasic Anterior tibial artery: 118 cm/s, Multiphasic Posterior tibial artery: 87 cm/s, Multiphasic Dorsalis pedis artery: 39 cm/s, Multiphasic US/US DANIEL complete IMPRESSION: Normal resting peripheral arterial testing without evidence of hemodynamically significant stenosis of the left lower extremity.
== END 2024-05-06 09:45 | disposition home or self-care (01) ==
LOC: HO.US 09:44
PROVIDERS: PCP Nurse Practitioner Family; Visit Provider Surgery Vascular Surgery
DX: I73.9 Peripheral vascular disease, unspecified (principal)
CPT/HCPCS: 93923; 93926

== ENCOUNTER 2024-07-08 09:14 | Outpatient (AMB) | payer OTHER, SELFPAY ==
[2024-07-08 09:17] VITALS: BMI 24.7
--- NOTE | 2024-07-08 09:17 | MHC.OFFVIS ---
Vital Signs 07/08/24 09:17 Height 5 ft 9 in Weight 167 lb BMI 24.7 Intake Visit Reasons: 3 mo follow up s/p Left LE Arterial US 05/06/24 Intake Note: 3 mo follow up Left LE arterial US 05/06/24. Pt states he is doing great, he does get some phantom pain. He has prosthetic and is doing very well. Accompanied by: Self / Same As Patient Allergies amoxicillin [AMOXICILLIN] Allergy (Severe, Verified 07/08/24 09:23) ANAPHYLAXIS oxycodone [From Tylox] Allergy (Intermediate, Verified 07/08/24 09:23) Itching hydrocodone [HYDROCODONE] Allergy (Unknown, Verified 07/08/24 09:23) UNKNOWN acetaminophen [From Tylox] Allergy (Verified 07/08/24 09:23) Itching HPI HPI 3 mo follow up s/p Left LE Arterial US 05/06/24: Details: 49-year-old gentleman presents for follow-up status post amputation with arterial surveillance. He appears to be doing significantly better. He is in much better spirits. He is doing extremely well with his prosthetic. He is actually going to be advanced to a K 4 prosthetic. In addition his left foot toes 3 4 and 5 have been amputated and appear to be doing extremely well. He reports that his diabetes is in significantly better controlled now that he is on Trulicity. [facility] Medical History PAD (peripheral artery disease) Below-knee amputation of right lower extremity Chronic foot ulcer Mood disorder Anxiety Nausea and vomiting Acute osteomyelitis of left foot Marijuana smoker MRSA (methicillin resistant Staphylococcus aureus) GERD (gastroesophageal reflux disease) Bacteremia due to Streptococcus Posttraumatic stress disorder Staphylococcus aureus bacteremia 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 Bacterial infection due to Streptococcus, group C Acidosis, lactic Cellulitis Right foot infection Anxiety Diabetes type 2, controlled Surgical History History of tonsillectomy History of amputation (12/11/22) History of partial amputation of toe (10/11/22) History of incision and drainage History of laparoscopic cholecystectomy Social History Household Members: None Housing: Apartment Housing Other:: refused to answer Do you presently have visiting nurse or other home services: Yes Unable to assess alcohol history related to: Refusing to respond Alcohol intake: current Alcohol intake frequency: holidays/special occasions only Alcohol type: wine Comment: refuses alarms, camera. Education provided about safety Patient Tobacco Use Status: Current everyday Tobacco user Tobacco use type: Cigarette Cigarette Packs Per Day: 0.5 Cigarettes Per Day: 10.0 Years Smoked: 36 years Second Hand Smoke Exposure: No Substance Use Type: Marijuana service: No Current occupational status: disabled Review of Systems Const All systems reviewed & are unremarkable except as noted in HPI and below Reports no additional complaints ENT Reports Normal hearing present Card Denies chest pain, Denies chest pain at rest, Denies chest pain with activity and Denies pedal edema Resp Denies cough GI Denies abdominal pain Musc Denies abnormal gait, Denies muscle cramps and Denies radiating pain into limb Skin/Breast Denies skin ulcer and Denies wounds Neuro Reports Normal hearing present and Denies abnormal gait Psych Reports no additional complaints Physical Exam Vital Signs: BMI result Body Mass Index 24.7 Const General: cooperative, healthy appearing and comfortable Orientation/consciousness: oriented to person, oriented to place and oriented to time HEENT Head: Yes normal to inspection Neck Neck: Yes normal visual inspection Carotids: no bruits Chest Chest palpation & inspection: normal inspection of the chest Resp Effort & Inspection: normal respiratory effort and able to speak in complete sentences Auscultation: clear to auscultation bilaterally, no crackles, no rales, no rhonchi and no wheezes Cardio Other: Left DP pulse Rate: regular rate Rhythm: regular rhythm Heart sounds: S1 normal heart sound present and S2 normal heart sound present Bruits: no carotid bruits Peripheral pulses: Peripheral pulses 2+ throughout GI Inspection: Yes normal to inspection Skin Other: Left toe 3 through 5 completely amputated healing well Wounds: amputation site (BKA healed well) Hair: normal Neuro General: oriented to person, oriented to place and oriented to time Cranial nerves: Yes CN's II-XII intact bilaterally and Yes Normal hearing present Cognition (Neuro): normal cognition Motor exam (neuro): 5/5 motor strength present throughout Extrem Other: venous exam: No significant superficial varicosities or spider telangiectasias, minimal edema General: No clubbing, No cyanosis and No edema Psych Appearance: grossly normal Mental Status: mental status grossly normal Speech and movement: Normal speech and movement present Results Reviewed Results Reviewed: Noninvasive arterial testing dated 05/06/2024 demonstrates DANIEL on the left of 1.04 Assessment & Plan Assessment & Plan (1) PAD (peripheral artery disease): Comment: 11/22/2023 - right below-knee amputation Code(s): I73.9 - Peripheral vascular disease, unspecified Category: Medical Plan: In short patient appears to be doing extremely well with right BKA. Left side appears to be stable from an arterial perspective. We did discuss routine risk factor modification. Will follow up with us in approximately 6 months time with arterial surveillance. Thank you for allowing us to assist in his care. If there are any questions or concerns please do not hesitate to contact us. Please note a longitudinal relationship has been created with the patient and we have been following and surveillance this chronic condition. Orders: Orders US arterial duplex LE LT 6 Months I73.9 - Peripheral vascular disease, unspecified Coding Level of Care Code Est Pt Level 4 (95975) Complex EM visit Add On G2211 Diagnoses PAD (peripheral artery disease) I73.9
== END 2024-07-08 09:36 | disposition home or self-care (01) ==
PROVIDERS: PCP Nurse Practitioner Family; Visit Provider Surgery Vascular Surgery
DX: I73.9 Peripheral vascular disease, unspecified (principal)
CPT/HCPCS: 99214; G2211

== ENCOUNTER → 2024-07-08 09:14 | Outpatient (BNVA) | payer OTHER, SELFPAY | PROVIDERS: PCP Nurse Practitioner Family; Visit Provider Surgery Vascular Surgery | DX: I73.9 Peripheral vascular disease, unspecified (principal) | CPT/HCPCS: 99212 ==

== ENCOUNTER 2025-01-10 16:13 | Emergency (ER) | payer OTHER, SELFPAY ==
[2025-01-10 16:26] VITALS: BP 115/85; PULSE 108; RESP 16; TEMP 36.1; O2SAT 99; BMI 25.1
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
--- OUTSIDE RECORDS SUMMARY | 2025-01-10 17:18 | XMS_ITS | Clinical Summary ---
Author Organization [facility] Address [address] [place] [address] Care Team Providers Care Financial Agent Name Role Phone Unavailable Primary Care Provider Unavailabl e Surgical History Surgery Date Site/Laterality Comments CHOLECYSTECTOMY 1999 PROCEDURE: HISTORICAL CHOLECYSTECTOMY TONSILLECTOMY 1981 PROCEDURE: HISTORICAL TONSILLECTOMY MULTIPLE TOOTH EXTRACTIONS PROCEDURE: HISTORICAL DENTAL EXTRACTION Medical History Medical History Date Comments Depressive disorder, not els ewhere classified 01/31/2006 DX:Depressive disorder, not elsewhere classified Erectile dysfunction DX:Erectile dysfunction Type II or unspecified type diabetes mellitus without mention of complication, not stated as uncontrolled DX:Type II or unspecified ty pe diabetes mellitus without mention of complication, not stated as uncontrolled Hyperlipidemia DX:Hyperlipidemi a Diabetic peripheral neuropat hy associated with type 2 diabetes mellitus (CMS/HCC V24, CMS/HCC V28) 10/12/2014 DX:Diabetic periph eral neuropathy associated with type 2 diabetes mellitus (HCC) Peripheral neuropathy 10/12/2014 DX:Periphe ral neuropathy; COMMENT: Now he Family History Medical History Relation Name Comments Hypertension Father Diabetes Maternal Grandmother Diabetes Mother suddenly a ge 65 Relation Name Status Comments Father Maternal Grandmother Mother Social History Tobacco Use Types Packs/Day Years Used Date Smoking Tobacco: Some Days Cigarettes 0.3 7.5 Started: 07/23/2017 Smokeless Tobacco: Never Alcohol Use Standard Drinks/Week Comments Yes 0 (1 standard drink = 0.6 oz pur e alcohol) Sex and Gender Information Value Date Recorded Sex Assigned at Not on file Legal Sex Male 4:28 PM EST Gender Identity Not on file Sexual Orientation Not on file Obstetrics History Last Filed Vital Signs Vital Sign Reading Time Taken Comments Blood Pressure - - Pulse - - Temperature - - Respiratory Rate - - Oxygen Saturation - - Inhaled Oxygen Concentration - - Weight 88.9 kg (196 lb) 09/20/2023 1:51 PM EST Height 175.3 cm (5' 9 ) 08/21/2023 10:47 AM EST Body Mass Index 28.94 08/21/2023 10:47 AM EST Plan of Treatment Health Maintenance Due Date Last Done Comments Diabetes: Annual GFR (Glomerular Filtration Rate) 1974 Diabetes: Annual Foot Exam 01/11/1984 Diabetes: Annual Retina Eye Exam 01/11/1984 Hepatitis B Vaccines (1 of 3 - 19+ 3-dose series) 1993 Pneumococcal Vaccine: 50+ Years (2 of 2 - PCV) 11/09/2009 11/09/2008 Pneumococcal Vaccine: Pediatrics (0 to 5 Years) and At-Risk Patients (6 to 64 Years) (2 of 2 - PCV) 11/09/2009 11/09/2008 Cholesterol Screening (Lipid Panel) 08/30/2022 Colorectal Cancer Screening: Colonoscopy 08/30/2022 Depression Screening 08/30/2022 HIV Screening 08/30/2022 Hepatitis C Screening 08/30/2022 Social Influencers of Health Screening 08/30/2022 Diabetes: Annual Urine Albumin-Creatinine Ratio (uACR) 09/15/2022 Diabetes: Blood Sugar Contro l Test (HGBA1C) 09/15/2022 Zoster Vaccines (1 of 2) 01/11/2024 COVID-19 Vaccine (1 - 2023-2 5 season) 2024 DTaP,Tdap,and Td Vaccines (2 - Td or Tdap) 12/22/2024 12/22/2014 Influenza Vaccine (Season Ended) 2025 08/18/2009, 07/08/2008 HIB Vaccines Aged Out No longer eligi ble based on patient's age to complete this topic HPV Vaccines Aged Out No longer eligi ble based on patient's age to complete this topic Hepatitis A Vaccines Aged Out No long er eligible based on patient's age to complete this topic IPV Vaccines Aged Out No longer eligi ble based on patient's age to complete this topic MMR Vaccines Aged Out No longer eligi ble based on patient's age to complete this topic Meningococcal ACWY Vaccine Aged Out N o longer eligible based on patient's age to complete this topic Meningococcal B Vaccine Aged Out No l onger eligible based on patient's age to complete this topic RSV Immunization Patients Under 20 months Aged Out No longer eligible b ased on patient's age to complete this topic Varicella Vaccines Aged Out No longer eligible based on patient's age to complete this topic
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
[2025-01-10] MEDS: Bacitracin Oint 0.9 GM PACKET 1 APPL TOPICAL (17:52)
[2025-01-10] MEDS: HYDROmorphone HCl 1 MG/ML SYRINGE IVPUSH (17:53)
[2025-01-10] MEDS: Diphth,Pertus(ACell),Tet Adult 0.5 ML SYRINGE IM (17:53)
--- NOTE | 2025-01-10 18:43 | PC.NURSE ---
Bacitracin and bandaids applied to R hand open areas; pt tolerated well and states pain is improved after meds gv per orders
[2025-01-10 19:42] VITALS: BP 133/81; PULSE 70; RESP 18; TEMP 36.6; O2SAT 99
[2025-01-10 19:53] VITALS: BP 133/81; PULSE 70; RESP 18; TEMP 36.6; O2SAT 99
== END 2025-01-10 19:53 | disposition home or self-care (01) ==
PROVIDERS: Emergency Provider Emergency Medicine Emergency Medical Services
DX: T23.201A Burn of second degree of right hand, unspecified site, initial encounter (principal); T31.0 Burns involving less than 10% of body surface; M79.641 Pain in right hand; X12.XXXA Contact with other hot fluids, initial encounter; Y93.9 Activity, unspecified; Y92.9 Unspecified place or not applicable; Y99.8 Other external cause status; Z23 Encounter for immunization
CPT/HCPCS: 16020; 90471; 90715; 96374; 99284; J1171

== ENCOUNTER → 2025-03-13 11:20 | Outpatient (BNV) | payer OTHER, SELFPAY | PROVIDERS: Visit Provider Radiology Diagnostic Radiology | DX: L97.529 Non-pressure chronic ulcer of other part of left foot with unspecified severity (principal) | CPT/HCPCS: 73620 ==

== ENCOUNTER → 2025-04-10 10:25 | Outpatient (BNV) | payer OTHER, SELFPAY | PROVIDERS: Visit Provider Radiology Diagnostic Radiology | DX: L97.521 Non-pressure chronic ulcer of other part of left foot limited to breakdown of skin (principal) | CPT/HCPCS: 73630 ==

== ENCOUNTER → 2025-04-30 10:28 | Outpatient (BNV) | payer OTHER, SELFPAY | PROVIDERS: Visit Provider Radiology Diagnostic Radiology | DX: L97.526 Non-pressure chronic ulcer of other part of left foot with bone involvement without evidence of necrosis (principal) | CPT/HCPCS: 73720 ==

== ENCOUNTER 2025-04-30 11:21 | Outpatient (REF) | payer OTHER, SELFPAY ==
--- OUTSIDE RECORDS SUMMARY | 2025-04-25 23:59 | XMS_ITS | Continuity of Care Document ---
Author Organization [facility] Address [address] [place] [address]- Care Team Providers Care Motor Bus Driver Name Role Phone Baldev ROD TAPE OPERATOR, Suzanne Jordan Primary Care Physician [phone] [id number] Date(s): 03/26/25 - 04/25/25 [facility] [address] [place] [id number]- Encounter Type: Triage Allergies, Adverse Reactions, Alerts Substance Criticality Severity Reaction Reaction Severity Status amoxicillin 1 Unable to assess criticality Persistent Severe Facial swelling Difficulty breathing Active Tylox Active HYDROcodone 2 Active 1Tolerates cefepime 2Rash Immunizations Given and Recorded Vaccine Date Status Refusal Reason tetanus/diphtheria/pertussis, acel(Tdap) 01/10/25 Recorded tetanus/diphtheria/pertussis, acel(Tdap) 12/22/14 Recorded SARS-CoV-2 (COVID-19) mRNA BNT-162b2 vac 09/08/21 Recorded SARS-CoV-2 (COVID-19) mRNA BNT-162b2 vac 01/04/21 Recorded SARS-CoV-2 (COVID-19) mRNA BNT-162b2 vac 12/13/20 Recorded influ virus vac, H1N1, inactive(oldterm) 08/18/09 Recorded pneumococcal 23-valent vaccine 11/09/08 Recorded influenza virus vaccine, inactivated 07/08/08 Alirio rded Medications Cane See Instructions, # 1 each, Maintenance, use as directed for dx below knee amputation (S88.119A), 03/28/24 3:59:00 PM EDT, Supply Start Date: 03/28/24 Status: Ordered Quantity: 1.0 Unit: each Repeat number: 1 Crutches See Instructions, # 1 pack/packet, Maintenance, use as directed for dx below knee amputation (S88.119A), 03/10/24 8:06:00 AM EDT, Supply Start Date: 03/10/24 Status: Ordered Quantity: 1.0 Unit: pack/packet Repeat number: 1 Diabetic Shoes and Inserts for Left Foot Diabetic Shoes and Inserts for Left Foot, See Instructions, # 1 each, Refills 0, Tot. Refills 0, Maintenance, use as directed for dx diabetes mellitus type 2 (E11.9) left toe amputation (S98. 132A) diabetic foot ulcer (E11.621) neuropathy (G62.9) L&C [phone], 02/13/25 9:50:00 AM EDT, Supply Start Date: 02/13/25 Status: Ordered Quantity: 1.0 Unit: each Repeat number: 1 Indications: Type 2 diabetes mellitus with diabetic neuropathy, unspecified; Type 2 diabetes mellitus with diabetic neuropathy, unspecified; Osteomyelitis, unspecified; escitalopram 10 mg oral tablet 1 tablet, By Mouth, Daily, # 90 tablet, 3 Refills, Maintenance, 08/14/24 9:01:00 AM EST, [place] [id number], 175.26, cm, 05/30/24 13:59:00 EDT, Height Start Date: 08/14/24 Status: Ordered Quantity: 90.0 Unit: tablet Repeat number: 4 Freestyle Lite Lancets See Instructions, # 600 each, Refills 3, Tot. Refills 3, Maintenance, Use to test glucose up to twotimes daily for DX diabetes mellitus type 2 (e11.9), 10/16/23 10:41:00 AM EST, Supply, 175.26, cm, 12/25/22 13:06:00 EDT, Height, 97.5, kg, 07/05/22 17:07:00 EDT, Dry Weight Start Date: 10/16/23 Status: Ordered Quantity: 600.0 Unit: each Repeat number: 4 Freestyle Lite Monitor See Instructions, # 1 each, Maintenance, Use as directed for DX diabetes mellitus type 2 (e11.9), 10/16/23 10:42:00 AM EST, Supply, 175.26, cm, 12/25/22 13:06:00 EDT, Height, 97.5, kg, 07/05/22 17:07:00 EDT, Dry Weight Start Date: 10/16/23 Status: Ordered Quantity: 1.0 Unit: each Repeat number: 1 Freestyle Lite Test Strips See Instructions, # 600 each, Refills 3, Tot. Refills 3, Maintenance, Use to test glucose up to twotimes daily for DX diabetes mellitus type 2 (e11.9), 10/16/23 10:42:00 AM EST, Supply, 175.26, cm, 12/25/22 13:06:00 EDT, Height, 97.5, kg, 07/05/22 17:07:00 EDT, Dry Weight Start Date: 10/16/23 Status: Ordered Quantity: 600.0 Unit: each Repeat number: 4 gabapentin 400 mg oral capsule 400 mg, 1, capsule, By Mouth, 3 times a day, # 270 capsule, Refills 1, Tot. Refills 1, Maintenance,03/06/25 10:07:00 AM EDT, Route to Pharmacy Electronically, [facility] Partial fill upon patient request if the prescription is for a schedule II opioid drug., 175.26, cm, 02/12/25 12:40:00 EDT, Height Start Date: 03/06/25 Status: Ordered Quantity: 270.0 Unit: capsule Repeat number: 2 glipiZIDE 5 mg oral tablet 10 mg, 2, tablet, By Mouth, Daily, Maintenance, 11/30/22 9:07:00 AM EST, ; Start Date: 11/30/22 Status: Ordered Repeat number: 1 metFORMIN 500 mg oral tablet 1 tablet, By Mouth, 2 times a day, # 60 tablet, 2 Refills, Maintenance, 03/26/25 6:33:00 AM EDT, [facility], 175.26, cm, 02/12/25 12:40:00 EDT, Height Start Date: 03/26/25 Status: Ordered Quantity: 60.0 Unit: tablet Repeat number: 1 Shower Chair See Instructions, # 1 each, Maintenance, use as directed for dx below knee amputation (S88.119A), 02/07/24 7:59:00 AM EDT, Supply Start Date: 02/07/24 Status: Ordered Quantity: 1.0 Unit: each Repeat number: 1 sildenafil 50 mg oral tablet 1 tablet = 50 mg, By Mouth, Daily, PRN sexual activity, 1 hour before sexual activity, # 30 tablet,0 Refills, Maintenance, 02/12/25 4:53:00 PM EDT, Tablet, [facility] [place] Partial fill upon patient request if the prescription is for a schedule II opioid drug., 175.26, cm, 02/12/25 12:40:00 EDT, Height Start Date: 02/12/25 Status: Ordered Quantity: 30.0 Unit: tablet Repeat number: 1 Trulicity Pen 3 mg/0.5 mL subcutaneous solution See Instructions, 0.5 ML SUBCUTANEOUS INJECTION EVERY WEEK,INSTR:ROTATE INJECTION SITES, # 2 mL, 5 Refills, Maintenance, 12/04/24 2:49:00 PM EST, [facility]-, 175.26, cm, 05/30/24 13:59:00 EDT, Height Start Date: 12/04/24 Status: Ordered Quantity: 2.0 Unit: mL Repeat number: 1 Problem List Condition Confirmation Course Effective Dates Status H ealth Status Informant Amputation of fifth toe of left foot Confirmed Active Amputation of toe of left foot Confirmed Active Diabetic foot ulcer Confirmed Active Erectile dysfunction Confirmed Active NATASHA (generalized anxiety disorder) Confirmed Active Hx of right BKA Confirmed Active Major depression Confirmed Active Diabetic neuropathy, type II diabetes mellitus Confirmed Active Osteomyelitis of fifth toe of left foot Confirmed Active PVD (peripheral vascular disease) Confirmed Active PVD (peripheral vascular disease) Confirmed Active PTSD (post-traumatic stress disorder) Confirmed Active Primary insomnia Confirmed Active DM type 2, uncontrolled, with neuropathy Confirmed Active Diabetic ulcer of left foot Confirmed Active Social History Social History Type Response Smoking Status 5-9 cigarettes (betw een 1/4 to 1/2 pack)/day in last 30 days entered on: 08/26/21 Sex Sex Representation Male (finding) Patient Care team information Care Team Personnel Name: Emelina Melchor CNM Position: Reference Physician Member Role: Primary Care Nurse Address: [address] [place] [address] Telecom: Name: Jess Mcneill RN Position: S RN Member Role: Primary Care Nurse Name: Jayant Christensen RN Position: [facility] RN Member Role: Primary Care Nurse Name: Suzanne De Paz NP Position: [facility] PCO Associate Professional Member Role: PCP Address: [address] [place] [id number] Telecom: Name: Stacey Sterling RN Position: [facility] RN Member Role: Primary Care Nurse Name: Silvia Allen Position: [facility] Outreach Member Role: [employer] Consult[employer] Physician Care Team Related Persons Name: MARY JO RICHTER Name: JESSICA BUNDY Insurance Providers Guarantor name: RADHA Health Plan Information #: 1 Payer: [facility] Payer Identifier: RADHA Member Number: [id number] Group Number: [id number] Subscriber Identifier: [id number] Relationship to Subscriber: self Coverage Type: Medicaid (Managed Care) Coverage Verification Date: Telecom: NA Address:
--- NOTE | ~2025-04-30 | MR_ITS ---
EXAM: MRI left foot without and with IV contrast. IV contrast:9 [employer] TECHNIQUE: Multiplanar multisequence imaging performed through the left foot without and with IV contrast. INDICATION: Diabetic foot ulcer PRIOR: X-ray from 08/20/2025 FINDINGS: Lisfranc ligament: Intact Soft tissues: There is ulceration plantar of the first MTP joint that extends into the joint capsule. From the joint capsule extends anteriorly along the plantar aspect of the proximal phalanx to the base of the distal phalanx. There is edema and hyperenhancement of the musculature in the plantar midfoot. There is edema in the medial and dorsal subcutaneous soft tissues with hyperenhancement. Loculated fluid collection lateral to the first proximal phalanx measures 7 x 14 mm appears to the neck extending from the first MTP joint capsule versus a small abscess. Metatarsophalangeal (MTP) joint and sesamoids of the great toe: There is dorsal dislocation of the first MTP joint which is new since the x-ray. There is also fracture through the head of the first metatarsal. There is subtle decreased T1 signal through the central and base of the proximal phalanx and involving most of the first metatarsal, sparing the base. Fluid sensitive sequences demonstrate increased signal throughout the proximal phalanx and first metatarsal. After contrast, there is concordant enhancement between the regions demonstrating T1 changes and postcontrast images. Extension, the fragmented first metatarsal head does not enhance. First MTP joint effusion is noted. The medial sesamoid is medially dislocated and positioned medial to the first metatarsal neck. The lateral sesamoid is laterally dislocated. There is hyperenhancement of the medial sesamoid but no enhancement of the lateral. Lesser MTP joints/plantar plates: The third digits been annotated. The fourth and fifth rays have been amputated. There is chronic degenerative irregularity of the second MTP joint with mild reactive marrow signal changes. There is a joint effusion. The distal end of the third metatarsal demonstrates minimally decreased T1 signal, minimal increased signal on fluid sensitive sequences, and mild enhancement, nonspecific finding. Bones/Marrow: The marrow signal is otherwise physiologic. MR/MR foot LT wo/w con IMPRESSION: Probable osteomyelitis and septic arthritis with a fracture involving the first ray. There is ulceration to the skin to the level of the first MTP joint that extends anteriorly through the plantar deep tissues to the level of the first distal phalanx. There is evidence of osteomyelitis involving most of the first metatarsal, sparing the base. There is a fracture through the head of the first metatarsal. There are changes consistent with osteoarthritis involving the first proximal phalanx, sparing the head and neck region. The medial and lateral sesamoids are both dislocated in a medial and lateral direction, respectively. There is likely osteomyelitis involving the medial sesamoid. There is evidence of a septic arthritis with either extension of a synovial cyst along the lateral margin of the proximal phalanx and into the second web space versus an abscess. There is evidence of myositis and cellulitis involving the musculature in the plantar midfoot and soft tissues through the medial and dorsal midfoot and forefoot. Changes involving the second MTP joint and neck of the third metatarsal are likely chronic and reactive. Electronically signed by: Armando Lawrence MD 04/30/2025 12:41 PM EDT
--- OUTSIDE RECORDS SUMMARY | 2025-04-30 12:10 | XMS_ITS | Clinical Summary ---
Author Organization [facility] Address [address] [place] [phone] Phone Care Team Providers Care Stonework Tracer Name Role Phone Pcp, Unknown Primary Care Provider Unavailabl e Social History Tobacco Use Types Packs/Day Years Used Date Smoking Tobacco: Never Assessed Education Answer Date Recorded Are you interested in more education? Not on khris e 01/27/2023 Are you concerned about learning? Not on file 01/27/2023 No 01/27/2023 No 01/27/2023 Digital Access Answer Date Recorded No 02/27/2023 No 02/27/2023 Reliable internet access at home? Not on file 02/27/2023 Device with a working camera? Not on file Sex and Gender Information Value Date Recorded Sex Assigned at Not on file Legal Sex Male 12:58 PM EDT Gender Identity Not on file Sexual Orientation Not on file Plan of Treatment Health Maintenance Due Date Last Done Comments Adult Td,Tdap Booster 1974 LIPID PANEL 1974 DEPRESSION SCREENING 1986 SMOKING Hx and SMOKELESS TOB ACCO SCREENING 1987 HEPATITIS C SCREENING 01/11/1992 HIV ONE-TIME SCREENING (18-6 5 YEARS) 01/11/1992 COLOGUARD 2019 COLONOSCOPY 2019 COLORECTAL CANCER SCREENING 2019 FIT TEST 2019 FOBT 2019 SIGMOIDOSCOPY 2019 VIRTUAL COLONOSCOPY 2019 PNEUMOCOCCAL VACCINES (50+ y ears) (1 of 1 - PCV) 01/11/2024 ZOSTER VACCINES (1 of 2) 01/11/2024 COVID-19 VACCINE (2023-2 5 season) 2024 HEPATITIS A VACCINES Aged Out No long er eligible based on patient's age to complete this topic HIB VACCINES Aged Out No longer eligi ble based on patient's age to complete this topic MENINGOCOCCAL VACCINES (ACWY) Aged Out No longer eligible based on patient's age to complete this topic MENINGOCOCCAL VACCINES (B) Aged Out N o longer eligible based on patient's age to complete this topic Medical Devices Not on file Insurance [address] [place], [place] [address] [address] [place], [place] [address] [facility] [employer] Care Teams Stonework Tracer Relationship Specialty Start Date End Date Pcp, Unknown PCP - General 06/27/23 Additional Source Comments The information contained in this document represents components of the legal health record. It is not the complete legal health record.[facility]
--- OUTSIDE RECORDS SUMMARY | 2025-04-30 12:10 | XMS_ITS | Clinical Summary ---
Author Organization [facility] Address [address] [place] [address] Care Team Providers Care Data Collection Associate Name Role Phone Unavailable Primary Care Provider [...] Date Smoking Tobacco: Some Days Cigarettes 0.3 7.8 Started: 07/23/2017 Smokeless Tobacco: Never Alcohol Use [...] Panel) 08/30/2022 Colorectal Cancer Screening: Colonoscopy 08/30/2022 HIV Screening 08/30/2022 Hepatitis C Screening 08/30/2022 Social Influencers of Health Screening 08/30/2022 Diabetes: Annual Urine Albumin-Creatinine Ratio (uACR) 09/15/2022 Diabetes: Blood Sugar Contro l Test (HGBA1C) 09/15/2022 Zoster Vaccines (1 of 2) 01/11/2024 COVID-19 Vaccine (1 - 2023-2 5 season) 2024 Depression Screening 10/01/2024 DTaP,Tdap,and Td Vaccines (2 - Td or Tdap) 12/22/2024 12/22/2014 Influenza Vaccine (#1) 06/01/202508/18/200 9, 07/08/2008 HIB Vaccines Aged Out No longer [...]
== END 2025-04-30 11:22 | disposition home or self-care (01) ==
LOC: HO.MRI 11:21
PROVIDERS: Visit Provider Surgery Surgical Oncology
DX: E11.621 Type 2 diabetes mellitus with foot ulcer (principal); L97.524 Non-pressure chronic ulcer of other part of left foot with necrosis of bone
CPT/HCPCS: 73720; 99212; A9585

== ENCOUNTER 2025-04-30 12:51 | Outpatient (AMB) | payer OTHER, SELFPAY ==
--- NOTE | 2025-04-30 12:53 | A.OFFVIS_ITS ---
Vital Signs 04/30/25 12:54 Height 5 ft 9 in Weight 170 lb BMI 25.1 Intake Visit Reasons: WoundCare re-referral for foot Intake Note: Follow up for Left Great Toe and 2nd toe non-healing wounds, pt states severe, been on abx for 3 weeks. Pt states he goes weekly to the woundcare and changes dressing daily. Rapid Outsole Stitcher Required: No Accompanied by: Self / Same As Patient Allergies amoxicillin (AMOXICILLIN) Allergy (Severe, Verified 04/30/25 12:57) ANAPHYLAXIS oxycodone (From Tylox) Allergy (Intermediate, Verified 04/30/25 12:57) Itching hydrocodone (HYDROCODONE) Allergy (Unknown, Verified 04/30/25 12:57) UNKNOWN acetaminophen (From Tylox) Allergy (Verified 04/30/25 12:57) Itching HPI HPI WoundCare re-referral for foot: Details: Very pleasant 50-year-old gentleman well known to me for prior right BKA. He has this nonhealing left plantar ulceration. It has been a continued source of discomfort for him. He has on the left side previously 3 digits amputated. He has the great toe and 2nd toe still present. He now presents to us for vascular follow-up. [facility] Medical History (Updated 05/01/25 @ 09:02 by oJse Waggoner MD) 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 PAD (peripheral artery disease) Below-knee amputation of right lower extremity Chronic foot ulcer Mood disorder Anxiety Nausea and vomiting Acute osteomyelitis of left foot Marijuana smoker MRSA (methicillin resistant Staphylococcus aureus) GERD (gastroesophageal reflux disease) Bacteremia due to Streptococcus Posttraumatic stress disorder Staphylococcus aureus bacteremia Bacterial infection due to Streptococcus, group C Acidosis, lactic Cellulitis Right foot infection Anxiety Diabetes type 2, controlled Surgical History History of tonsillectomy History of amputation (12/11/22) History of partial amputation of toe (10/11/22) History of incision and drainage History of laparoscopic cholecystectomy Social History Household Members: None Housing: Apartment Housing Other:: refused to answer Do you presently have visiting nurse or other home services: Yes Unable to assess alcohol history related to: Refusing to respond Alcohol intake: current Alcohol intake frequency: a few times a month Alcohol type: wine Comment: refuses alarms, camera. Education provided about safety Patient Tobacco Use Status: Current everyday Tobacco user Tobacco use type: Cigarette Cigarette Packs Per Day: 0.5 Cigarettes Per Day: 10.0 Years Smoked: 36 years Second Hand Smoke Exposure: No Substance Use Type: Marijuana service: No Current occupational status: disabled Review of Systems Const All systems reviewed & are unremarkable except as noted in HPI and below Reports no additional complaints ENT Reports Normal hearing present Card Denies chest pain, Denies chest pain at rest, Denies chest pain with activity and Denies pedal edema Resp Denies cough GI Denies abdominal pain Musc Denies abnormal gait, Denies muscle cramps and Denies radiating pain into limb Skin/Breast Denies skin ulcer and Denies wounds Neuro Reports Normal hearing present and Denies abnormal gait Psych Reports no additional complaints Physical Exam Vital Signs: BMI result Body Mass Index 25.1 Const General: cooperative, healthy appearing and comfortable Orientation/consciousness: oriented to person, oriented to place and oriented to time HEENT Head: Yes normal to inspection Neck Neck: Yes normal visual inspection Carotids: no bruits Chest Chest palpation & inspection: normal inspection of the chest Resp Effort & Inspection: normal respiratory effort and able to speak in complete sentences Auscultation: clear to auscultation bilaterally, no crackles, no rales, no rhonchi and no wheezes Cardio Rate: regular rate Rhythm: regular rhythm Heart sounds: S1 normal heart sound present and S2 normal heart sound present Bruits: no carotid bruits Peripheral pulses: Peripheral pulses 2+ throughout GI Inspection: Yes normal to inspection Skin Other: Right BKA well-healed; left foot plantar ulceration copious serous drainage penetrating to bone Wounds: amputation site and wounds noted Hair: normal Neuro General: oriented to person, oriented to place and oriented to time Cranial nerves: Yes CN's II-XII intact bilaterally and Yes Normal hearing present Cognition (Neuro): normal cognition Motor exam (neuro): 5/5 motor strength present throughout Extrem Other: venous exam: No significant superficial varicosities or spider telangiectasias, minimal edema General: No clubbing, No cyanosis and Yes edema Psych Appearance: grossly normal Mental Status: mental status grossly normal Speech and movement: Normal speech and movement present Assessment & Plan Assessment & Plan (1) 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: Code(s): E08.621 - Diabetes mellitus due to underlying condition with foot ulcer; L97.509 - Non-pressure chronic ulcer of other part of unspecified foot with unspecified severity Category: Medical Qualifiers: Diabetic foot ulcer location: toe Laterality: left Non-pressure ulcer stage: with necrosis of bone Qualified Code(s): E08.621 - Diabetes mellitus due to underlying condition with foot ulcer; L97.524 - Non-pressure chronic ulcer of other part of left foot with necrosis of bone Plan: In short patient has nonhealing left foot ulcer. He has had a significant opportunity for conservative treatment. He is currently with IV antibiotics and it remains nonhealing. We had an extensive discussion and mutually came to the decision that a left transmetatarsal foot amputation would be the best course for him. He is in agreement and would like to move forward with that. Risks benefits complications were discussed in detail with the patient he agreed and consented. Coding Level of Care Code Est Pt Level 4 (45827) Diagnoses Diabetic ulcer of toe of left foot associated with diabetes mellitus due to underlying condition, with necrosis of bone E08.621; L97.524 Diabetic foot ulcer location: toe Laterality: left Non-pressure ulcer stage: with necrosis of bone
[2025-04-30 12:54] VITALS: BMI 25.1
== END 2025-04-30 13:30 | disposition home or self-care (01) ==
LOC: HO.HVS 12:52
PROVIDERS: Visit Provider Surgery Vascular Surgery
DX: E11.621 Type 2 diabetes mellitus with foot ulcer (principal); L97.524 Non-pressure chronic ulcer of other part of left foot with necrosis of bone
CPT/HCPCS: 99214

== ENCOUNTER 2025-05-05 11:00 | Outpatient (RCR) | payer OTHER, SELFPAY ==
[2025-03-13 12:28] LABS: Hemoglobin A1C 356.5424 umol/L; Total Hemoglobin (HGBA1C) 4686.4291 umol/L
[2025-04-10 10:20] LABS: MANUAL DIFF FLAG NO
[2025-04-10 10:55] LABS: Hematocrit 51.2 % (42.0-52.0); Hemoglobin 17.5 g/dl (14.0-18.0); Imm Gran Abs Auto 0.07 X10*3/uL (0.00-0.03); Imm Gran Pct Auto 0.6 % (0.0-0.4); Lymphocytes Absolute Auto 1.8 X10*3/uL (1.2-4.9); Mean Corpuscular HGB Conc 34.2 g/dl (31.0-36.0); Mean Corpuscular Hemoglobin 29.9 pg (27.0-33.0); Mean Corpuscular Volume 87.4 fL (80.0-98.0); NRBC Abs Auto 0.000 X10*3/uL (0.0-0.012); NRBC Pct Auto 0.0 /100WBC (0.0-0.2); Platelet Count 358 X10*3/uL (160-400); Red Blood Count 5.86 X10*6/uL (4.60-5.80); White Blood Count 12.4 X10*3/uL (4.8-10.8)
--- NOTE | ~2025-05-05 | XR_ITS ---
EXAMINATION: XR FOOT, LEFT CLINICAL INFORMATION: R/O OSTEOMYELTIS COMPARISON: None available. TECHNIQUE: AP, lateral, and oblique views of the left foot. FINDINGS: There has been resection of the fourth and fifth rays at the tarsometatarsal level. There has been resection of the third digit at the distal metatarsal level. There are erosive changes of the distal second metatarsal with widening of the MTP joint. The midfoot and hindfoot otherwise appear grossly normal. Soft tissues demonstrate ulceration of the plantar aspect subjacent to the first MTP joint. No soft tissue gas is present. No erosions or permeative bone changes seen. XR/XR foot LT 2V IMPRESSION: 1. Soft tissue ulceration plantar aspect subjacent to the joint. 2. No erosions or permeative bone changes seen to suggest radiographic changes of osteomyelitis. 3. Additional chronic findings as discussed. Electronically signed by: Korey Trevino MD 03/13/2025 12:03 PM EDT
--- NOTE | ~2025-05-05 | XR_ITS ---
EXAMINATION: XR FOOT, LEFT CLINICAL INFORMATION: FOOT PAIN COMPARISON: 03/13/2025, 10/07/2023. TECHNIQUE: AP, lateral, and oblique views of the left foot. FINDINGS: There has been resection of the fourth and fifth rays at the tarsometatarsal level. There has been resection of the third digit at the distal metatarsal level. There are chronic appearing erosive changes of the distal second metatarsal with widening of the MTP joint. The midfoot and hindfoot otherwise appear grossly normal. Soft tissues demonstrate ulceration of the plantar aspect subjacent to the first MTP joint. No soft tissue gas is present. No erosions or permeative bone changes seen. XR/XR foot LT min 3V IMPRESSION: 1. Exam appears stable. 2. Soft tissue ulceration plantar aspect subjacent to the MTP joint. 3. Chronic appearing erosive changes distal second metatarsal, similar. 4. No acute erosive or permeative bone changes seen to suggest radiographic changes of osteomyelitis. 5. Additional chronic findings as discussed. Electronically signed by: Korey Trevino MD 04/10/2025 10:41 AM EDT
== END 2025-05-18 16:38 | disposition home or self-care (01) ==
LOC: HO.WCC 11:00
PROVIDERS: Visit Provider Surgery Surgical Oncology
DX: E11.621 Type 2 diabetes mellitus with foot ulcer (principal); L97.524 Non-pressure chronic ulcer of other part of left foot with necrosis of bone; E11.69 Type 2 diabetes mellitus with other specified complication; M86.672 Other chronic osteomyelitis, left ankle and foot; L84 Corns and callosities; E11.43 Type 2 diabetes mellitus with diabetic autonomic (poly)neuropathy; E11.65 Type 2 diabetes mellitus with hyperglycemia; I10 Essential (primary) hypertension; L03.116 Cellulitis of left lower limb; F17.210 Nicotine dependence, cigarettes, uncomplicated; Z79.84 Long term (current) use of oral hypoglycemic drugs; Z89.422 Acquired absence of other left toe(s); Z89.511 Acquired absence of right leg below knee
CPT/HCPCS: 11042; 36415; 73620; 73630; 83036; 85025; 85652; 86140; 87070; 87073; 87077; 87186; 87205; 99212; 99213

== ENCOUNTER 2025-05-15 07:22 | Day surgery (SDC) | payer OTHER, SELFPAY ==
--- NOTE | 2025-05-13 14:55 | HO.ANESPROP2 ---
Documented by User: Elizabeth Dillon NP 05/20/25 10:16 HPI - Anesthesia Eval Consult details Narrative: 50yo M for Left Foot Amputation Transmetarsal Anesthesia Pre-Procedure Meds Is the patient on any of the following meds?: GLP1/DPP4 PMFSH Active Problems Active Problems: All Active Problems 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 (Acute) PAD (peripheral artery disease) (Acute) Status post below knee amputation of right lower extremity (Acute) Elevated WBC count (Acute) Open wnd foot-complicated (Acute) Positive blood culture (Acute) Past Medical History Medical History 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 PAD (peripheral artery disease) Below-knee amputation of right lower extremity Chronic foot ulcer Mood disorder Anxiety Nausea and vomiting Acute osteomyelitis of left foot Marijuana smoker MRSA (methicillin resistant Staphylococcus aureus) GERD (gastroesophageal reflux disease) Bacteremia due to Streptococcus Posttraumatic stress disorder Staphylococcus aureus bacteremia Bacterial infection due to Streptococcus, group C Acidosis, lactic Cellulitis Right foot infection Anxiety Diabetes type 2, controlled Family History Family history of problems with anesthesia: No Surgical History Surgical History History of tonsillectomy History of amputation (12/11/22) History of partial amputation of toe (10/11/22) History of incision and drainage History of laparoscopic cholecystectomy History of Problems with Anesthesia: No Social History Social History Household Members: None Housing: Apartment Housing Other:: refused to answer Are you a primary career counselor to a significant other at home: No Do you presently have visiting nurse or other home services: No Unable to assess alcohol history related to: Refusing to respond Alcohol intake: current Alcohol intake frequency: a few times a month Alcohol type: wine Comment: refuses alarms, camera. Education provided about safety Patient Tobacco Use Status: Current everyday Tobacco user Tobacco use type: Cigarette Cigarette Packs Per Day: 0.5 Cigarettes Per Day: 10 Years Smoked: 36 years Second Hand Smoke Exposure: No Substance Use Type: Marijuana service: No Current occupational status: disabled Meds Allergies Allergy/AdvReac Type Severity Reaction Status Date / Time amoxicillin (AMOXICILLIN) Allergy Severe ANAPHYLAXIS Verified 05/15/25 08:31 oxycodone (From Tylox) Allergy Intermediate Itching Verified 05/15/25 08:31 hydrocodone (HYDROCODONE) Allergy Unknown UNKNOWN Verified 05/15/25 08:31 Home Medications ?Medication ?Instructions ?Recorded ?Confirmed ?Last Taken ?Type metformin 500 mg tablet 500 mg PO BID 10/06/22 05/15/25 10/03/23 History dulaglutide 1.5 mg/0.5 mL 1.5 mg subcut FR 11/29/22 05/15/25 05/08/25 History subcutaneous pen injector (Trulicity) Assessment and Plan Assessment Anesthesia Assessment: Chart Reviewed Final Anesthetic Review Family History of Problems with Anesthesia: No History of Problems with Anesthesia: No Documented by User: Imtiaz Hunt MD 05/20/25 16:33 [facility] Past Medical History Medical History 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 PAD (peripheral artery disease) Below-knee amputation of right lower extremity Chronic foot ulcer Mood disorder Anxiety Nausea and vomiting Acute osteomyelitis of left foot Marijuana smoker MRSA (methicillin resistant Staphylococcus aureus) GERD (gastroesophageal reflux disease) Bacteremia due to Streptococcus Posttraumatic stress disorder Staphylococcus aureus bacteremia Bacterial infection due to Streptococcus, group C Acidosis, lactic Cellulitis Right foot infection Anxiety Diabetes type 2, controlled Surgical History Surgical History History of tonsillectomy History of amputation (12/11/22) History of partial amputation of toe (10/11/22) History of incision and drainage History of laparoscopic cholecystectomy Social History Social History Household Members: None Housing: Apartment Housing Other:: refused to answer Are you a primary career counselor to a significant other at home: No Do you presently have visiting nurse or other home services: No Unable to assess alcohol history related to: Refusing to respond Alcohol intake: current Alcohol intake frequency: a few times a month Alcohol type: wine Comment: refuses alarms, camera. Education provided about safety Patient Tobacco Use Status: Current everyday Tobacco user Tobacco use type: Cigarette Cigarette Packs Per Day: 0.5 Cigarettes Per Day: 10 Years Smoked: 36 years Second Hand Smoke Exposure: No Substance Use Type: Marijuana service: No Current occupational status: disabled Meds Allergies Allergy/AdvReac Type Severity Reaction Status Date / Time amoxicillin (AMOXICILLIN) Allergy Severe ANAPHYLAXIS Verified 05/15/25 08:31 oxycodone (From Tylox) Allergy Intermediate Itching Verified 05/15/25 08:31 hydrocodone (HYDROCODONE) Allergy Unknown UNKNOWN Verified 05/15/25 08:31 Home Medications ?Medication ?Instructions ?Recorded ?Confirmed ?Last Taken ?Type metformin 500 mg tablet 500 mg PO BID 10/06/22 05/15/25 10/03/23 History dulaglutide 1.5 mg/0.5 mL 1.5 mg subcut FR 11/29/22 05/15/25 05/08/25 History subcutaneous pen injector (Trulicity) Exam Airway Mallampati Class: II TM Dist: <=3cm Neck ROM: Full Heart: ok Lungs: ok Assessment and Plan Assessment Anesthesia Assessment: Anesthesia Plan Discussed Final Anesthetic Review NPO: Yes ASA Class: III Final Preanesthetic Review: No Changes in Pt Med Stat, Meds/Allgs Chart Reviewed, Consent Obtained/Reviewed and Anes Risks/Benef Reviewed Patient Risk: Intermediate Procedure Risk: Low Anesthetic Plan Anesthetic Plan: GA and Agree w/ Assess. and Plan Disposition: Standard PACU
[2025-05-15] VITALS (7 sets, daily range): BP systolic 103–129; BP diastolic 67–86; PULSE 65–83; RESP 14–18; TEMP 36.4–37; O2SAT 97–100; BMI 28.6
[2025-05-15] MEDS: Lactated Ringers 1,000 ML 100 ML IVCONT (08:09)
[2025-05-15 08:17] LABS: Hematocrit 48.0 % (42.0-52.0); Hemoglobin 16.5 g/dl (14.0-18.0); Mean Corpuscular HGB Conc 34.4 g/dl (31.0-36.0); Mean Corpuscular Hemoglobin 29.7 pg (27.0-33.0); Mean Corpuscular Volume 86.3 fL (80.0-98.0); NRBC Abs Auto 0.000 X10*3/uL (0.0-0.012); NRBC Pct Auto 0.0 /100WBC (0.0-0.2); Platelet Count 279 X10*3/uL (160-400); Red Blood Count 5.56 X10*6/uL (4.60-5.80); White Blood Count 10.1 X10*3/uL (4.8-10.8)
[2025-05-15 08:31] LABS: Anion Gap 16 (12-20); Blood Urea Nitrogen 9 mg/dL (9-16); Calcium 9.1 mg/dL (8.4-10.2); Carbon Dioxide 27 mmol/L (22-29); Chloride 102 mmol/L (96-108); Creatinine Clr Calc Pharmacy 97.4; Estimated Glomerular Filt Rate > 60; Potassium 4.7 mmol/L (3.3-5.1); Sodium 140 mmol/L (135-145)
[2025-05-15 08:34] LABS: INTERNATIONAL NORM RATIO 1.0 (0.9-1.1); Prothrombin Time 11.5 SEC (10.9-12.4)
[2025-05-15 08:37] LABS: Partial Thromboplastin Time 31.0 SEC (26.7-34.1)
[2025-05-15 08:39] LABS: Glucose, Whole Blood 223 mg/dL (60-115)
--- NOTE | 2025-05-15 08:44 | MHC.SHP ---
Pre-Procedural Eval Section A - 24 Hr Update-Section A only Date of Service: 05/15/25 The patient is an INPATIENT: No Changes since office visit: Yes Patient answered all questions The patient has been examined within 24 hours of the surgical procedure. The History & Physical has been completed within 30 days and I have reviewed it.: Yes Section B - Complete if H&P > 30 days Chief Complaint: Postop Allergies: Allergies Allergy/AdvReac Type Severity Reaction Status Date / Time amoxicillin (AMOXICILLIN) Allergy Severe ANAPHYLAXIS Verified 05/15/25 08:31 oxycodone (From Tylox) Allergy Intermediate Itching Verified 05/15/25 08:31 hydrocodone (HYDROCODONE) Allergy Unknown UNKNOWN Verified 05/15/25 08:31 acetaminophen (From Tylox) Allergy Itching Verified 05/15/25 08:31 Plan I have reviewed the history and physical and performed a pertinent physical examination on my patient. No changes have occurred unless specified. Time Spent With Patient Time: Total time managing care of this patient today ____ minutes.
--- NOTE | 2025-05-15 10:18 | W.PM.OPN ---
Operative Note Operative Note Date of Service: 05/15/25 Narrative: Operative note by [facility] Preoperative diagnosis: Nonhealing left foot ulcer 2. Osteomyelitis Postoperative diagnosis: Same Procedure: Left transmetatarsal amputation Surgeon:Jose Waggoner M.D. Compacting Machine Operator/Tender: Gordon BRAUN Anesthesia: General by Dr. Kitchen stump Specimens: 1 Drains: None Estimated blood loss: 100 mL Indications: 50-year-old gentleman with prior toe amputations presents for nonhealing ulcer on the left plantar surface of the foot. Multiple conservative attempts had been made to try to heal this. He has even gone with long-term antibiotics with no significant improvement. He now presents for transmetatarsal amputation. The patient has signed the informed consent after reviewing risks, complications, benefits, and alternatives previously discussed with the patient. The patient was given the opportunity to ask any additional questions or voice any concerns. All questions were answered to the patient's satisfaction. Procedure in detail: Patient was brought to the operating room prior to which a time-out was called for patient identification and site verification. Left foot was prepped and draped in standard surgical fashion. Curvilinear incision was made over the dorsum of the left foot. This was over the transmetatarsal heads. Incision was carried down through skin subQ down to the metatarsals. Posteriorly a flap was created with a curved linear incision as well. Once this was done we used electrocautery to get down to skin fascia and bone. Using a power saw we cut across the bones across the metatarsus. Once through the bone we create a posterior flap. We made sure that there was appropriate posterior flap we trimmed this off and removed the specimen. We then irrigated the wound clear obtain adequate hemostasis. We made sure that the bony edges were smooth. Once this was done we brought up the flap reapproximating with a 2-0 Polysorb on the deep fascial layer superficial layer was with a 2-0 Polysorb as well finally skin was closed with a 3-0 nylon in a mattress fashion along with skin clips Xeroform and a sterile dressing were applied at the end the case sponge instrument counts were correct. Patient tolerated the procedure well. Returned to recovery with stable vitals. This note is constructed using voice recognition software. While every effort has been made to ensure accuracy, weaver needle loom errors may have been included. Thank you for allowing me to participate in the care of your patient. Yours sincerely, Jose Waggoner MD, FACS, R.P.V.I.
--- NOTE | 2025-05-15 14:03 | PHA.MEDREC ---
Pharmacy Consult ? Medication Reconciliation Pharmacy has completed the medication reconciliation. REviewed med rec done by nursing. Removed duplicates and cyclobenzaprine, Glipizide, and other supplements that were last filled >1 year ago.
--- NOTE | 2025-07-30 12:27 | PM.EVENT ---
Event Note Date of Service: 05/15/25 Event Note: Please note amputation was done as a same-day surgery. This was a left transmetatarsal amputation done for a diabetic foot ulcer and underlying osteomyelitis. The order for admission was activated inadvertently on the preop holding orders. The patient was never admitted. Thank you Time Spent With Patient Time: Total time managing care of this patient today ____ minutes.
== END 2025-05-15 10:16 | disposition home or self-care (01) ==
LOC: HO.SSS 07:23 → HO.SSSA 10:10
PROVIDERS: Visit Provider Surgery Vascular Surgery
PROC: 0Y6N0Z4 Detachment at Left Foot, Complete 1st Ray, Open Approach (ICD-10-PCS; CPT 28805; principal; 2025-05-15 09:00)
DX: E11.621 Type 2 diabetes mellitus with foot ulcer (principal); L97.429 Non-pressure chronic ulcer of left heel and midfoot with unspecified severity; F17.210 Nicotine dependence, cigarettes, uncomplicated; Z71.6 Tobacco abuse counseling; Z79.84 Long term (current) use of oral hypoglycemic drugs; Z79.85 Long-term (current) use of injectable non-insulin antidiabetic drugs; Z79.899 Other long term (current) drug therapy
CPT/HCPCS: 28805; 36415; 80048; 82947; 85027; 85610; 85730; 88305; 88311; J2003; J2704; J2795; J3010; J3374

== ENCOUNTER → 2025-05-15 08:00 | Outpatient (BNV) | payer OTHER, SELFPAY | PROVIDERS: Admitting Provider Surgery Vascular Surgery; Visit Provider Surgery Vascular Surgery | DX: L97.526 Non-pressure chronic ulcer of other part of left foot with bone involvement without evidence of necrosis (principal); M86.172 Other acute osteomyelitis, left ankle and foot | CPT/HCPCS: 28805 ==

== ENCOUNTER 2025-06-02 09:16 | Outpatient (AMB) | payer OTHER, SELFPAY ==
--- NOTE | 2025-06-02 09:26 | A.OFFVIS_ITS ---
Intake Visit Reasons: 2 week follow up s/p L TMA Intake Note: 2 wk follow up Left TMA 05/15/25. Pt has VNA twice per week. Pt states he lost one staple in the medial incision. Accompanied by: Self / Same As Patient Allergies amoxicillin (AMOXICILLIN) Allergy (Severe, Verified 06/02/25 09:34) ANAPHYLAXIS oxycodone (From Tylox) Allergy (Intermediate, Verified 06/02/25 09:34) Itching hydrocodone (HYDROCODONE) Allergy (Unknown, Verified 06/02/25 09:34) UNKNOWN HPI HPI 2 week follow up s/p L TMA: Details: Pleasant 50-year-old gentleman for 2 week follow-up status post left transmetatarsal amputation. He has done fairly well he actually tripped I had an opening in the amp site. He now has engaged [facility] services. Now for routine postprocedure follow-up. 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 PAD (peripheral artery disease) Below-knee amputation of right lower extremity Chronic foot ulcer Mood disorder Anxiety Nausea and vomiting Acute osteomyelitis of left foot Marijuana smoker MRSA (methicillin resistant Staphylococcus aureus) GERD (gastroesophageal reflux disease) Bacteremia due to Streptococcus Posttraumatic stress disorder Staphylococcus aureus bacteremia Bacterial infection due to Streptococcus, group C Acidosis, lactic Cellulitis Right foot infection Anxiety Diabetes type 2, controlled Surgical History History of tonsillectomy History of amputation (12/11/22) History of partial amputation of toe (10/11/22) History of incision and drainage History of laparoscopic cholecystectomy Social History Household Members: None Housing: Apartment Housing Other:: refused to answer Are you a primary regular senior care provider to a significant other at home: No Do you presently have visiting nurse or other home services: No Unable to assess alcohol history related to: Refusing to respond Alcohol intake: current Alcohol intake frequency: a few times a month Alcohol type: wine Comment: refuses alarms, camera. Education provided about safety Patient Tobacco Use Status: Current everyday Tobacco user Tobacco use type: Cigarette Cigarette Packs Per Day: 0.5 Cigarettes Per Day: 10 Years Smoked: 36 years Second Hand Smoke Exposure: No Substance Use Type: Marijuana service: No Current occupational status: disabled Review of Systems Const All systems reviewed & are unremarkable except as noted in HPI and below Reports no additional complaints ENT Reports Normal hearing present Card Denies chest pain, Denies chest pain at rest, Denies chest pain with activity and Denies pedal edema Resp Denies cough GI Denies abdominal pain Musc Denies abnormal gait, Denies muscle cramps and Denies radiating pain into limb Skin/Breast Denies skin ulcer and Denies wounds Neuro Reports Normal hearing present and Denies abnormal gait Psych Reports no additional complaints Physical Exam Const General: cooperative, healthy appearing and comfortable Orientation/consciousness: oriented to person, oriented to place and oriented to time HEENT Head: Yes normal to inspection Neck Neck: Yes normal visual inspection Carotids: no bruits Chest Chest palpation & inspection: normal inspection of the chest Resp Effort & Inspection: normal respiratory effort and able to speak in complete sentences Auscultation: clear to auscultation bilaterally, no crackles, no rales, no rhonchi and no wheezes Cardio Rate: regular rate Rhythm: regular rhythm Heart sounds: S1 normal heart sound present and S2 normal heart sound present Bruits: no carotid bruits Peripheral pulses: Peripheral pulses 2+ throughout GI Inspection: Yes normal to inspection Skin Other: Left trans met site armin and sutures removed central opening measuring 2 x 1.4 x 0.3 cm. In general fairly clean there was some clot removed from this area. Wounds: no wounds Hair: normal Neuro General: oriented to person, oriented to place and oriented to time Cranial nerves: Yes CN's II-XII intact bilaterally and Yes Normal hearing present Cognition (Neuro): normal cognition Motor exam (neuro): 5/5 motor strength present throughout Extrem Other: venous exam: No significant superficial varicosities or spider telan giectasias, minimal edema General: No clubbing, No cyanosis and No edema Psych Appearance: grossly normal Mental Status: mental status grossly normal Speech and movement: Normal speech and movement present Assessment & Plan Assessment & Plan (1) PAD (peripheral artery disease): Comment: 11/22/2023 - right below-knee amputation 05/15/2025 - left transmetatarsal amputation Code(s): I73.9 - Peripheral vascular disease, unspecified Category: Medical Plan: In short doing extremely well status post transmetatarsal amputation. Unfortunately there is a central nonhealing site. I do think this is very viable and will take some time to heal. Taken the liberty of ordering antibiotics for him due to some mild surrounding erythema. He will follow up with us in approximately 2 weeks time to ensure wound continues to heal and progressing in the right direction. Thank you for allowing us to assist in his care. Medications: New doxycycline hyclate 100 mg PO BID 20 caps 0RF Coding Level of Care Code Est Pt Level 3 (65850) Diagnoses PAD (peripheral artery disease) I73.9
--- OUTSIDE RECORDS SUMMARY | 2025-06-02 10:09 | XMS_ITS | Clinical Summary ---
Author Organization [facility] Address [address] [place] [address] Care Team Providers Care Digital Strategy Manager Name Role Phone Unavailable Primary Care Provider [...] Date Smoking Tobacco: Some Days Cigarettes 0.3 7.9 Started: 07/23/2017 Smokeless Tobacco: Never Alcohol Use [...]
--- OUTSIDE RECORDS SUMMARY | 2025-06-02 10:09 | XMS_ITS | Clinical Summary ---
Author Organization [facility] Address [address] [facility] [address] [place] [phone] Phone Care Team Providers Care Powerhouse Laborer Name Role Phone Pcp, Unknown Primary Care [...] topic Medical Devices Not on file Insurance [address] [place], [place] [address] [address] [place] [address]HE[employer] [facility] [employer]HER [employer] Care Teams Powerhouse Laborer Relationship Specialty Start Date End Date Pcp, Unknown PCP - General 06/27/23 Additional Source Comments The information contained in this document represents components of the legal health record. It is not the complete legal health record.[facility]
== END 2025-06-02 10:07 | disposition home or self-care (01) ==
LOC: HO.HVS 09:17
PROVIDERS: Visit Provider Surgery Vascular Surgery
DX: I73.9 Peripheral vascular disease, unspecified (principal)
CPT/HCPCS: 99024

== ENCOUNTER → 2025-06-02 09:16 | Outpatient (BNVA) | payer OTHER, SELFPAY | PROVIDERS: Visit Provider Surgery Vascular Surgery | DX: Z98.890 Other specified postprocedural states (principal); I73.9 Peripheral vascular disease, unspecified | CPT/HCPCS: 99212 ==

== ENCOUNTER 2025-06-16 09:38 | Outpatient (AMB) | payer OTHER, SELFPAY ==
--- NOTE | 2025-06-16 09:48 | MHC.OFFVIS ---
Intake Visit Reasons: 2 week wound check Intake Note: follow up 2 week wound check Left Transmet amp 05/15/25, still has VNA three times per week. States he still has opening in incision. Pt is up and walking regularly. Pt been using iodoform packing strips since last visit. Business Systems Administrator Required: No Accompanied by: Self / Same As Patient Allergies amoxicillin (AMOXICILLIN) Allergy (Severe, Verified 06/16/25 10:00) ANAPHYLAXIS oxycodone (From Tylox) Allergy (Intermediate, Verified 06/16/25 10:00) Itching hydrocodone (HYDROCODONE) Allergy (Unknown, Verified 06/16/25 10:00) UNKNOWN HPI HPI 2 week wound check: Details: The patient is a 50-year-old male presenting for follow-up of his left transmetatarsal amputation site. The patient reports that the site is filling in well, although there is some mild erythema noted, particularly after wearing a sneaker. He denies any pain at the site and mentions that he was able to walk a block and a half to visit a friend without discomfort. The patient has been receiving home nursing care, although there have been changes in the service provider due to organizational changes. He is considering whether to continue with the current service or seek alternatives. 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 PAD (peripheral artery disease) Below-knee amputation of right lower extremity Chronic foot ulcer Mood disorder Anxiety Nausea and vomiting Acute osteomyelitis of left foot Marijuana smoker MRSA (methicillin resistant Staphylococcus aureus) GERD (gastroesophageal reflux disease) Bacteremia due to Streptococcus Posttraumatic stress disorder Staphylococcus aureus bacteremia Bacterial infection due to Streptococcus, group C Acidosis, lactic Cellulitis Right foot infection Anxiety Diabetes type 2, controlled Surgical History History of tonsillectomy History of amputation (12/11/22) History of partial amputation of toe (10/11/22) History of incision and drainage History of laparoscopic cholecystectomy Social History Household Members: None Housing: Apartment Housing Other:: refused to answer Are you a primary career services director to a significant other at home: No Do you presently have visiting nurse or other home services: No Unable to assess alcohol history related to: Refusing to respond Alcohol intake: current Alcohol intake frequency: a few times a month Alcohol type: wine Comment: refuses alarms, camera. Education provided about safety Patient Tobacco Use Status: Current everyday Tobacco user Tobacco use type: Cigarette Cigarette Packs Per Day: 0.5 Cigarettes Per Day: 10 Years Smoked: 36 years Second Hand Smoke Exposure: No Substance Use Type: Marijuana service: No Current occupational status: disabled Review of Systems Const All systems reviewed & are unremarkable except as noted in HPI and below Reports no additional complaints ENT Reports Normal hearing present Card Denies chest pain, Denies chest pain at rest, Denies chest pain with activity and Denies pedal edema Resp Denies cough GI Denies abdominal pain Musc Denies abnormal gait, Denies muscle cramps and Denies radiating pain into limb Skin/Breast Denies skin ulcer and Denies wounds Neuro Reports Normal hearing present and Denies abnormal gait Psych Reports no additional complaints Physical Exam Const General: cooperative, healthy appearing and comfortable Orientation/consciousness: oriented to person, oriented to place and oriented to time HEENT Head: Yes normal to inspection Neck Neck: Yes normal visual inspection Carotids: no bruits Chest Chest palpation & inspection: normal inspection of the chest Resp Effort & Inspection: normal respiratory effort and able to speak in complete sentences Auscultation: clear to auscultation bilaterally, no crackles, no rales, no rhonchi and no wheezes Cardio Rate: regular rate Rhythm: regular rhythm Heart sounds: S1 normal heart sound present and S2 normal heart sound present Bruits: no carotid bruits Peripheral pulses: Peripheral pulses 2+ throughout GI Inspection: Yes normal to inspection Skin Other: Left trans met central incision line opening 2 x 1 x 1 cm Wounds: no wounds Hair: normal Neuro General: oriented to person, oriented to place and oriented to time Cranial nerves: Yes CN's II-XII intact bilaterally and Yes Normal hearing present Cognition (Neuro): normal cognition Motor exam (neuro): 5/5 motor strength present throughout Extrem Other: venous exam: No significant superficial varicosities or spider telangiectasias, minimal edema General: No clubbing, No cyanosis and No edema Psych Appearance: grossly normal Mental Status: mental status grossly normal Speech and movement: Normal speech and movement present Assessment & Plan Assessment & Plan (1) PAD (peripheral artery disease): Comment: 11/22/2023 - right below-knee amputation 05/15/2025 - left transmetatarsal amputation Code(s): I73.9 - Peripheral vascular disease, unspecified Category: Medical Plan: Stable. Incision healing well. 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 There is some mild erythema associated with it but the patient states he has been active. Will renew antibiotics. In addition continue with local wound care including packing with covering. He will follow up with us in approximately 3 weeks' time. Thank you for allowing us to assist in his care. Medications: Refilled doxycycline hyclate 100 mg PO BID 20 caps 0RF Coding Level of Care Code Est Pt Level 3 (88348) Diagnoses PAD (peripheral artery disease) I73.9 Diabetic ulcer of toe of left foot associated with diabetes mellitus due to underlying condition, with necrosis of bone E08.621; L97.524 Diabetic foot ulcer location: toe Laterality: left Non-pressure ulcer stage: with necrosis of bone
--- OUTSIDE RECORDS SUMMARY | 2025-06-16 12:17 | XMS_ITS | Clinical Summary ---
Author Organization [facility] Address [address] [facility] [address] [place] [phone] Phone Care Team Providers Care Early Childhood Teacher Assistant Name Role Phone Pcp, Unknown Primary Care [...] 01/11/2024 ZOSTER VACCINES (1 of 2) 01/11/2024 INFLUENZA VACCINE (#1) 2025 COVID-19 VACCINE (1 - 2023-2 5 season) 2025 HEPATITIS A VACCINES Aged Out No long [...] topic Medical Devices Not on file Insurance [employer] [address] [address] [place], [place] [address] [address] [place] [address] [place] [address] [address] [facility] Care Teams Early Childhood Teacher Assistant Relationship Specialty Start Date End Date Pcp, Unknown PCP - General 06/27/23 Additional Source Comments The information contained in this document represents components of the legal health record. It is not the complete legal health record.[facility]
--- OUTSIDE RECORDS SUMMARY | 2025-06-16 12:17 | XMS_ITS | Clinical Summary ---
Author Organization [facility] Address [address] [place] [address] Care Team Providers Care Pleasure Craft Sailor Name Role Phone Unavailable Primary Care Provider [...] 09/15/2022 Zoster Vaccines (1 of 2) 01/11/2024 Depression Screening 10/01/2024 DTaP,Tdap,and Td Vaccines (2 - Td or Tdap) 12/22/2024 12/22/2014 COVID-19 Vaccine (1 - 2023-2 5 season) 2025 Influenza Vaccine (#1) 06/01/202508/18/200 9, 07/08/2008 HIB [...]
== END 2025-06-16 10:44 | disposition home or self-care (01) ==
LOC: HO.HVS 09:39
PROVIDERS: Visit Provider Surgery Vascular Surgery
DX: I73.9 Peripheral vascular disease, unspecified (principal); E08.621 Diabetes mellitus due to underlying condition with foot ulcer; L97.524 Non-pressure chronic ulcer of other part of left foot with necrosis of bone
CPT/HCPCS: 99024

== ENCOUNTER → 2025-06-16 09:38 | Outpatient (BNVA) | payer OTHER, SELFPAY | PROVIDERS: Visit Provider Surgery Vascular Surgery | DX: L97.524 Non-pressure chronic ulcer of other part of left foot with necrosis of bone (principal); E08.621 Diabetes mellitus due to underlying condition with foot ulcer; I73.9 Peripheral vascular disease, unspecified; Z98.890 Other specified postprocedural states | CPT/HCPCS: 99212 ==

== ENCOUNTER 2025-07-07 10:33 | Outpatient (AMB) | payer OTHER, SELFPAY ==
--- NOTE | 2025-07-07 10:35 | A.OFFVIS_ITS ---
Intake Visit Reasons: 3 week wound check Intake Note: 3 wk wound check Left TMA 05/15/25. VNA services discontinued due to the VNA center closing, transition of care didn't happen due to full pt capacity. Pt does own dressing changes every few days. Physics Technical Officer Required: No Accompanied by: Self / Same As Patient Allergies amoxicillin (AMOXICILLIN) Allergy (Severe, Verified 07/07/25 10:40) ANAPHYLAXIS oxycodone (From Tylox) Allergy (Intermediate, Verified 07/07/25 10:40) Itching hydrocodone (HYDROCODONE) Allergy (Unknown, Verified 07/07/25 10:40) UNKNOWN HPI HPI 3 week wound check: Details: The patient is a 50-year-old male presenting for follow-up regarding the left transmetatarsal amputation site. The patient underwent a right below-knee amputation on November 22, 2023, and a left transmetatarsal amputation on May 15, 2025. The incision line of the left transmetatarsal site is slow to heal, and the patient receives home nursing services for wound care. The patient reported an incident where he felt something snap in his foot while walking, which caused pain for a day or two. He has been engaging in activities such as driving around with a friend, which indicates some level of mobility despite the recent surgery. 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 PAD (peripheral artery disease) Below-knee amputation of right lower extremity Chronic foot ulcer Mood disorder Anxiety Nausea and vomiting Acute osteomyelitis of left foot Marijuana smoker MRSA (methicillin resistant Staphylococcus aureus) GERD (gastroesophageal reflux disease) Bacteremia due to Streptococcus Posttraumatic stress disorder Staphylococcus aureus bacteremia Bacterial infection due to Streptococcus, group C Acidosis, lactic Cellulitis Right foot infection Anxiety Diabetes type 2, controlled Surgical History History of tonsillectomy History of amputation (12/11/22) History of partial amputation of toe (10/11/22) History of incision and drainage History of laparoscopic cholecystectomy Social History Household Members: None Housing: Apartment Housing Other:: refused to answer Are you a primary hearing care practitioner to a significant other at home: No Do you presently have visiting nurse or other home services: No Unable to assess alcohol history related to: Refusing to respond Alcohol intake: current Alcohol intake frequency: a few times a month Alcohol type: wine Comment: refuses alarms, camera. Education provided about safety Patient Tobacco Use Status: Current everyday Tobacco user Tobacco use type: Cigarette Cigarette Packs Per Day: 0.5 Cigarettes Per Day: 10 Years Smoked: 36 years Second Hand Smoke Exposure: No Substance Use Type: Marijuana service: No Current occupational status: disabled Review of Systems Const All systems reviewed & are unremarkable except as noted in HPI and below Reports no additional complaints ENT Reports Normal hearing present Card Denies chest pain, Denies chest pain at rest, Denies chest pain with activity and Denies pedal edema Resp Denies cough GI Denies abdominal pain Musc Denies abnormal gait, Denies muscle cramps and Denies radiating pain into limb Skin/Breast Denies skin ulcer and Denies wounds Neuro Reports Normal hearing present and Denies abnormal gait Psych Reports no additional complaints Physical Exam Const General: cooperative, healthy appearing and comfortable Orientation/consciousness: oriented to person, oriented to place and oriented to time HEENT Head: Yes normal to inspection Neck Neck: Yes normal visual inspection Carotids: no bruits Chest Chest palpation & inspection: normal inspection of the chest Resp Effort & Inspection: normal respiratory effort and able to speak in complete sentences Auscultation: clear to auscultation bilaterally, no crackles, no rales, no rhonchi and no wheezes Cardio Rate: regular rate Rhythm: regular rhythm Heart sounds: S1 normal heart sound present and S2 normal heart sound present Bruits: no carotid bruits Peripheral pulses: Peripheral pulses 2+ throughout GI Inspection: Yes normal to inspection Skin Other: Right BKA well-healed Left trans met central incision line opening measuring 1.3 x 1.0 x 1.5 cm. Clean granulation base Wounds: amputation site and wounds noted Hair: normal Neuro General: oriented to person, oriented to place and oriented to time Cranial nerves: Yes CN's II-XII intact bilaterally and Yes Normal hearing present Cognition (Neuro): normal cognition Motor exam (neuro): 5/5 motor strength present throughout Extrem Other: venous exam: No significant superficial varicosities or spider telangiectasias, minimal edema General: No clubbing, No cyanosis and No edema Psych Appearance: grossly normal Mental Status: mental status grossly normal Speech and movement: Normal speech and movement present Assessment & Plan Assessment & Plan (1) PAD (peripheral artery disease): Comment: 11/22/2023 - right below-knee amputation 05/15/2025 - left transmetatarsal amputation Code(s): I73.9 - Peripheral vascular disease, unspecified Category: Medical Plan: The patient was informed about the current status of the healing process at the left transmetatarsal amputation site. Continue local wound care with packing strips. The patient will follow up with us in 3 weeks' time to ensure it is progressing in the right direction. Thank you for allowing us to assist in his care. Plan Patient was informed and verbally consented to the use of an ambient scribe for clinic note documentation during this visit. Coding Level of Care Code Est Pt Level 3 (47989) Diagnoses PAD (peripheral artery disease) I73.9
--- OUTSIDE RECORDS SUMMARY | 2025-07-07 12:49 | XMS_ITS | Clinical Summary ---
Author Organization [facility] Address [address] [place] [address] Care Team Providers Care Chefs Name Role Phone Unavailable Primary Care Provider [...] Date Smoking Tobacco: Some Days Cigarettes 0.3 8 Started: 07/23/2017 Smokeless Tobacco: Never Alcohol Use [...] Health Maintenance Due Date Last Done Comments Colorectal Cancer Screening: Colonoscopy 1974 Diabetes: Annual GFR (Glomerular Filtration Rate) 1974 Diabetes: Annual Foot Exam 01/11/1984 Diabetes: Annual Retina Eye Exam 01/11/1984 Hepatitis B Vaccines (1 of 3 - 19+ 3-dose series) 1993 Pneumococcal Vaccine: 50+ Years (2 of 2 - PCV) 11/09/2009 11/09/2008 Cholesterol Screening (Lipid Panel) 08/30/2022 HIV Screening 08/30/2022 Hepatitis C Screening 08/30/2022 Social Influencers of Health Screening 08/30/2022 Diabetes: Annual Urine Albumin-Creatinine Ratio (uACR) 09/15/2022 Diabetes: Blood Sugar Contro l Test (HGBA1C) 09/15/2022 Zoster Vaccines (1 of 2) 01/11/2024 Depression Screening 10/01/2024 DTaP,Tdap,and Td Vaccines (2 - Td or Tdap) 12/22/2024 12/22/2014 COVID-19 Vaccine (1 - 2023-2 5 season) 2025 Influenza Vaccine (#1) 2025 9, 07/08/2008 RSV Immunization Adult Patients (1 - 1-dose 75+ series) 2049 HIB Vaccines Aged Out No longer eligi [...]
--- OUTSIDE RECORDS SUMMARY | 2025-07-07 12:49 | XMS_ITS | Clinical Summary ---
Author Organization [facility] Address [address] [place] [phone] Phone Care Team Providers Care Firmware Software Verification Engineer Name Role Phone Pcp, Unknown Primary Care [...] VACCINE (#1) 2025 COVID-19 VACCINE (1 - 2024-2 6 season) 2025 RSV VACCINE (1 - 1-dose 75+ series) 2049 HEPATITIS A VACCINES Aged Out No long [...] topic Medical Devices Not on file Insurance [employer] [address] [place], [place] [id number] [address] [place] [address] [place] [id number] [facility] [employer] Care Teams Firmware Software Verification Engineer Relationship Specialty Start Date End Date Pcp, Unknown PCP - General 06/27/23 Additional Source Comments The information contained in this document represents components of the legal health record. It is not the complete legal health record.[facility]
== END 2025-07-07 11:09 | disposition home or self-care (01) ==
LOC: HO.HVS 10:34
PROVIDERS: Visit Provider Surgery Vascular Surgery
DX: I73.9 Peripheral vascular disease, unspecified (principal); Z89.432 Acquired absence of left foot; Z89.511 Acquired absence of right leg below knee
CPT/HCPCS: 99024

== ENCOUNTER → 2025-07-07 10:33 | Outpatient (BNVA) | payer OTHER, SELFPAY | PROVIDERS: Visit Provider Surgery Vascular Surgery | DX: E11.621 Type 2 diabetes mellitus with foot ulcer (principal); I73.9 Peripheral vascular disease, unspecified; M86.172 Other acute osteomyelitis, left ankle and foot; Z89.511 Acquired absence of right leg below knee; Z89.432 Acquired absence of left foot | CPT/HCPCS: 99212 ==

== ENCOUNTER 2025-07-28 09:44 | Outpatient (AMB) | payer OTHER, SELFPAY ==
--- NOTE | 2025-07-28 09:55 | A.OFFVIS_ITS ---
Intake Visit Reasons: 3 week wound check Intake Note: 3 week follow up hx Left TMA 05/15/25. Pt changes dressing as needed. 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 The surgery was performed on May 15, and the patient reports that the wound initially had an opening larger than a centimeter, which has now reduced to a dimple. The patient has been managing the wound with dressings and reports good granulation tissue, indicating healing progress. [facility] Medical History 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 PAD (peripheral artery disease) Below-knee amputation of right lower extremity Chronic foot ulcer Mood disorder Anxiety Nausea and vomiting Acute osteomyelitis of left foot Marijuana smoker MRSA (methicillin resistant Staphylococcus aureus) GERD (gastroesophageal reflux disease) Bacteremia due to Streptococcus Posttraumatic stress disorder Staphylococcus aureus bacteremia Bacterial infection due to Streptococcus, group C Acidosis, lactic Cellulitis Right foot infection Anxiety Diabetes type 2, controlled Surgical History History of tonsillectomy History of amputation (12/11/22) History of partial amputation of toe (10/11/22) History of incision and drainage History of laparoscopic cholecystectomy Social History Household Members: None Housing: Apartment Housing Other:: refused to answer Are you a primary client care manager to a significant other at home: No Do you presently have visiting nurse or other home services: No Alcohol intake: current Alcohol intake frequency: a few times a month Alcohol type: wine Comment: refuses alarms, camera. Education provided about safety Patient Tobacco Use Status: Current everyday Tobacco user Tobacco use type: Cigarette Cigarette Packs Per Day: 0.5 Cigarettes Per Day: 10 Years Smoked: 36 years Second Hand Smoke Exposure: No Substance Use Type: Marijuana service: No Current occupational status: disabled Review of Systems Const All systems reviewed & are unremarkable except as noted in HPI and below Reports no additional complaints ENT Reports Normal hearing present Card Denies chest pain, Denies chest pain at rest, Denies chest pain with activity and Denies pedal edema Resp Denies cough GI Denies abdominal pain Musc Denies abnormal gait, Denies muscle cramps and Denies radiating pain into limb Skin/Breast Denies skin ulcer and Denies wounds Neuro Reports Normal hearing present and Denies abnormal gait Psych Reports no additional complaints Physical Exam Const General: cooperative, healthy appearing and comfortable Orientation/consciousness: oriented to person, oriented to place and oriented to time HEENT Head: Yes normal to inspection Neck Neck: Yes normal visual inspection Carotids: no bruits Chest Chest palpation & inspection: normal inspection of the chest Resp Effort & Inspection: normal respiratory effort and able to speak in complete sentences Auscultation: clear to auscultation bilaterally, no crackles, no rales, no rhonchi and no wheezes Cardio Rate: regular rate Rhythm: regular rhythm Heart sounds: S1 normal heart sound present and S2 normal heart sound present Bruits: no carotid bruits Peripheral pulses: Peripheral pulses 2+ throughout GI Inspection: Yes normal to inspection Skin Other: Transmetatarsal amp midline incisional opening measures 0.8 x 0.5 x 0.5 cm. Wounds: amputation site Hair: normal Neuro General: oriented to person, oriented to place and oriented to time Cranial nerves: Yes CN's II-XII intact bilaterally and Yes Normal hearing present Cognition (Neuro): normal cognition Motor exam (neuro): 5/5 motor strength present throughout Extrem Other: venous exam: No significant superficial varicosities or spider telangiectasias, minimal edema General: No clubbing, No cyanosis and No edema Psych Appearance: grossly normal Mental Status: mental status grossly normal Speech and movement: Normal speech and movement present Assessment & Plan Assessment & Plan (1) PAD (peripheral artery disease): Comment: 11/22/2023 - right below-knee amputation 05/15/2025 - left transmetatarsal amputation Code(s): I73.9 - Peripheral vascular disease, unspecified Category: Medical Plan: I discussed with the patient the current status of the wound healing, noting the reduction in size and the presence of good granulation tissue. We agreed on a follow-up in three weeks to reassess the wound, and I advised against packing the wound to prevent any potential complications. Coding Level of Care Code Est Pt Level 3 (90216) Diagnoses PAD (peripheral artery disease) I73.9
--- OUTSIDE RECORDS SUMMARY | 2025-07-28 11:20 | XMS_ITS | Clinical Summary ---
Author Organization [facility] Address [address] [place] [address] Care Team Providers Care Python Architect Name Role Phone Unavailable Primary Care Provider [...]
--- OUTSIDE RECORDS SUMMARY | 2025-07-28 11:20 | XMS_ITS | Clinical Summary ---
Author Organization [facility] Address [address] [place] [phone] Phone Care Team Providers Care Grid Operator Name Role Phone Pcp, Unknown Primary Care [...] Devices Not on file Insurance [employer] [address] [place], [place] [address] [address] [place] [address] [place] [address] Care Teams Grid Operator Relationship Specialty Start Date End Date Pcp, Unknown PCP - General 06/27/23 Additional Source Comments The information contained in this document represents components of the legal health record. It is not the complete legal health record.[facility]
== END 2025-07-28 10:11 | disposition home or self-care (01) ==
LOC: HO.HVS 09:45
PROVIDERS: Visit Provider Surgery Vascular Surgery
DX: I73.9 Peripheral vascular disease, unspecified (principal)
CPT/HCPCS: 99024

== ENCOUNTER 2025-08-18 09:45 | Outpatient (AMB) | payer OTHER, SELFPAY ==
--- NOTE | 2025-08-18 09:52 | A.OFFVIS_ITS ---
Intake Visit Reasons: 3 week wound check Intake Note: 3 week wound check Left TMA 05/15/25. has small pinhole with regular bandaid Sales Superintendent Required: No Accompanied by: Self / Same As Patient Allergies amoxicillin (AMOXICILLIN) Allergy (Severe, Verified 07/28/25 09:56) ANAPHYLAXIS oxycodone (From Tylox) Allergy (Intermediate, Verified 07/28/25 09:56) Itching hydrocodone (HYDROCODONE) Allergy (Unknown, Verified 07/28/25 09:56) UNKNOWN HPI HPI 3 week wound check: Details: The patient is a 50-year-old male presenting for follow-up management of his left transmetatarsal amputation wound. He reports experiencing occasional phantom pains but denies any other issues related to the amputation site. The patient denies being on any blood thinners. He reports that after the wound got wet in the shower, he changed the dressing, applied iodine, and covered it with a Band-Aid. He now presents for routine wound check [facility] Medical History 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 PAD (peripheral artery disease) Below-knee amputation of right lower extremity Chronic foot ulcer Mood disorder Anxiety Nausea and vomiting Acute osteomyelitis of left foot Marijuana smoker MRSA (methicillin resistant Staphylococcus aureus) GERD (gastroesophageal reflux disease) Bacteremia due to Streptococcus Posttraumatic stress disorder Staphylococcus aureus bacteremia Bacterial infection due to Streptococcus, group C Acidosis, lactic Cellulitis Right foot infection Anxiety Diabetes type 2, controlled Surgical History History of tonsillectomy History of amputation (12/11/22) History of partial amputation of toe (10/11/22) History of incision and drainage History of laparoscopic cholecystectomy Social History Household Members: None Housing: Apartment Housing Other:: refused to answer Are you a primary social worker palliative care to a significant other at home: No Do you presently have visiting nurse or other home services: No Alcohol intake: current Alcohol intake frequency: a few times a month Alcohol type: wine Comment: refuses alarms, camera. Education provided about safety Patient Tobacco Use Status: Current everyday Tobacco user Tobacco use type: Cigarette Cigarette Packs Per Day: 0.5 Cigarettes Per Day: 10 Years Smoked: 36 years Second Hand Smoke Exposure: No Substance Use Type: Marijuana service: No Current occupational status: disabled Review of Systems Const All systems reviewed & are unremarkable except as noted in HPI and below Reports no additional complaints ENT Reports Normal hearing present Card Denies chest pain, Denies chest pain at rest, Denies chest pain with activity and Denies pedal edema Resp Denies cough GI Denies abdominal pain Musc Denies abnormal gait, Denies muscle cramps and Denies radiating pain into limb Skin/Breast Denies skin ulcer and Denies wounds Neuro Reports Normal hearing present and Denies abnormal gait Psych Reports no additional complaints Physical Exam Const General: cooperative, healthy appearing and comfortable Orientation/consciousness: oriented to person, oriented to place and oriented to time HEENT Head: Yes normal to inspection Neck Neck: Yes normal visual inspection Carotids: no bruits Chest Chest palpation & inspection: normal inspection of the chest Resp Effort & Inspection: normal respiratory effort and able to speak in complete sentences Auscultation: clear to auscultation bilaterally, no crackles, no rales, no rhonchi and no wheezes Cardio Rate: regular rate Rhythm: regular rhythm Heart sounds: S1 normal heart sound present and S2 normal heart sound present Bruits: no carotid bruits Peripheral pulses: Peripheral pulses 2+ throughout GI Inspection: Yes normal to inspection Skin Other: Left trans met amp wound incision line opening measures 0.8 x 0.3 x 0.2 cm Wounds: wounds noted Hair: normal Neuro General: oriented to person, oriented to place and oriented to time Cranial nerves: Yes CN's II-XII intact bilaterally and Yes Normal hearing present Cognition (Neuro): normal cognition Motor exam (neuro): 5/5 motor strength present throughout Extrem Other: venous exam: No significant superficial varicosities or spider telangiect asias, minimal edema General: No clubbing, No cyanosis and No edema Psych Appearance: grossly normal Mental Status: mental status grossly normal Speech and movement: Normal speech and movement present Assessment & Plan Assessment & Plan (1) PAD (peripheral artery disease): Comment: 11/22/2023 - right below-knee amputation 05/15/2025 - left transmetatarsal amputation Code(s): I73.9 - Peripheral vascular disease, unspecified Category: Medical Plan: In short wound appears to be doing well. Progressing slowly but closing. We did discuss routine wound care and the importance of keeping it clean and dry. He will follow up with us in approximately 3 weeks time. Thank you for allowing us to assist in his care. Coding Level of Care Code Est Pt Level 3 (96461) Diagnoses PAD (peripheral artery disease) I73.9
== END 2025-08-18 10:26 | disposition home or self-care (01) ==
LOC: HO.HVS 09:46
PROVIDERS: Visit Provider Surgery Vascular Surgery
DX: I73.9 Peripheral vascular disease, unspecified (principal)
CPT/HCPCS: 99213

== ENCOUNTER → 2025-08-18 09:45 | Outpatient (BNVA) | payer OTHER, SELFPAY | PROVIDERS: Visit Provider Surgery Vascular Surgery | DX: Z47.81 Encounter for orthopedic aftercare following surgical amputation (principal); I73.9 Peripheral vascular disease, unspecified | CPT/HCPCS: 99212 ==

== ENCOUNTER 2025-09-08 09:58 | Outpatient (REF) | payer OTHER, SELFPAY ==
[2025-09-08 10:50] LABS: MANUAL DIFF FLAG NO
[2025-09-08 11:39] LABS: Hematocrit 53.6 % (42.0-52.0); Hemoglobin 18.2 g/dl (14.0-18.0); Imm Gran Abs Auto 0.05 X10*3/uL (0.00-0.03); Imm Gran Pct Auto 0.6 % (0.0-0.4); Lymphocytes Absolute Auto 1.8 X10*3/uL (1.2-4.9); Mean Corpuscular HGB Conc 34.0 g/dl (31.0-36.0); Mean Corpuscular Hemoglobin 29.4 pg (27.0-33.0); Mean Corpuscular Volume 86.5 fL (80.0-98.0); NRBC Abs Auto 0.000 X10*3/uL (0.0-0.012); NRBC Pct Auto 0.0 /100WBC (0.0-0.2); Platelet Count 306 X10*3/uL (160-400); Red Blood Count 6.20 X10*6/uL (4.60-5.80); White Blood Count 9.0 X10*3/uL (4.8-10.8)
[2025-09-08 12:25] LABS: Alanine Aminotransferase 29 U/L (0-40); Albumin Level 4.7 g/dL (3.5-5.0); Alkaline Phosphatase 63 U/L (39-117); Anion Gap 12 (12-20); Aspartate Amino Transferase 54 U/L (5-37); Blood Urea Nitrogen 8 mg/dL (9-16); Calcium 9.9 mg/dL (8.4-10.2); Carbon Dioxide 28 mmol/L (22-29); Chloride 103 mmol/L (96-108); Cholesterol 198 mg/dL (<200); Estimated Glomerular Filt Rate > 60; HDL Cholesterol 30 mg/dL (>40); Potassium 5.0 mmol/L (3.3-5.1); Sodium 138 mmol/L (135-145); Total Protein 7.5 g/dL (6.5-8.0); Triglycerides 464 mg/dL (<150)
[2025-09-08 12:45] LABS: Thyroid Stimulating Hormone 0.53 uIU/mL (0.32-4.0)
== END 2025-09-08 09:59 | disposition home or self-care (01) ==
LOC: HO.LAB 09:58
PROVIDERS: Absent Provider Nurse Practitioner Family; PCP Nurse Practitioner Family; Visit Provider Surgery Vascular Surgery
DX: E11.51 Type 2 diabetes mellitus with diabetic peripheral angiopathy without gangrene (principal); F32.9 Major depressive disorder, single episode, unspecified; E78.5 Hyperlipidemia, unspecified; Z79.85 Long-term (current) use of injectable non-insulin antidiabetic drugs
CPT/HCPCS: 36415; 80053; 80061; 83036; 84153; 84443; 85025; 99212

== ENCOUNTER 2025-09-08 09:58 | Outpatient (AMB) | payer OTHER, SELFPAY ==
--- NOTE | 2025-09-08 10:02 | A.OFFVIS_ITS ---
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 The procedure was performed on May 15, 2025. He reports doing relatively well postoperatively. The patient has a history of diabetes, for which he takes Trulicity and requires A1c monitoring. He is scheduled to have blood drawn for his A1c after this appointment. He currently uses a K4 prosthetic leg and is awaiting a new device that will include a carbon fiber toe insert to provide more propulsive force during ambulation. He now presents for follow-up regarding his left transmetatarsal amputation [facility] Medical History 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 PAD (peripheral artery disease) Below-knee amputation of right lower extremity Chronic foot ulcer Mood disorder Anxiety Nausea and vomiting Acute osteomyelitis of left foot Marijuana smoker MRSA (methicillin resistant Staphylococcus aureus) GERD (gastroesophageal reflux disease) Bacteremia due to Streptococcus Posttraumatic stress disorder Staphylococcus aureus bacteremia Bacterial infection due to Streptococcus, group C Acidosis, lactic Cellulitis Right foot infection Anxiety Diabetes type 2, controlled Surgical History History of tonsillectomy History of amputation (12/11/22) History of partial amputation of toe (10/11/22) History of incision and drainage History of laparoscopic cholecystectomy Social History Household Members: None Housing: Apartment Housing Other:: refused to answer Are you a primary healthcare specialist to a significant other at home: No Do you presently have visiting nurse or other home services: No Alcohol intake: current Alcohol intake frequency: a few times a month Alcohol type: wine Comment: refuses alarms, camera. Education provided about safety Patient Tobacco Use Status: Current everyday Tobacco user Tobacco use type: Cigarette Cigarette Packs Per Day: 0.5 Cigarettes Per Day: 10 Years Smoked: 36 years Second Hand Smoke Exposure: No Substance Use Type: Marijuana service: No Current occupational status: disabled Review of Systems Const All systems reviewed & are unremarkable except as noted in HPI and below Reports no additional complaints ENT Reports Normal hearing present Card Denies chest pain, Denies chest pain at rest, Denies chest pain with activity and Denies pedal edema Resp Denies cough GI Denies abdominal pain Musc Denies abnormal gait, Denies muscle cramps and Denies radiating pain into limb Skin/Breast Denies skin ulcer and Denies wounds Neuro Reports Normal hearing present and Denies abnormal gait Psych Reports no additional complaints Physical Exam Const General: cooperative, healthy appearing and comfortable Orientation/consciousness: oriented to person, oriented to place and oriented to time HEENT Head: Yes normal to inspection Neck Neck: Yes normal visual inspection Carotids: no bruits Chest Chest palpation & inspection: normal inspection of the chest Resp Effort & Inspection: normal respiratory effort and able to speak in complete sen tences Auscultation: clear to auscultation bilaterally, no crackles, no rales, no rhonchi and no wheezes Cardio Rate: regular rate Rhythm: regular rhythm Heart sounds: S1 normal heart sound present and S2 normal heart sound present Bruits: no carotid bruits Peripheral pulses: Peripheral pulses 2+ throughout GI Inspection: Yes normal to inspection Skin Other: All amputation sites are healed Wounds: amputation site Hair: normal Neuro General: oriented to person, oriented to place and oriented to time Cranial nerves: Yes CN's II-XII intact bilaterally and Yes Normal hearing present Cognition (Neuro): normal cognition Motor exam (neuro): 5/5 motor strength present throughout Extrem Other: venous exam: No significant superficial varicosities or spider telangiectasias, minimal edema General: No clubbing, No cyanosis and No edema Psych Appearance: grossly normal Mental Status: mental status grossly normal Speech and movement: Normal speech and movement present Assessment & Plan Assessment & Plan (1) PAD (peripheral artery disease): Comment: 11/22/2023 - right below-knee amputation 05/15/2025 - left transmetatarsal amputation Code(s): I73.9 - Peripheral vascular disease, unspecified Category: Medical Plan: I informed the patient that his left transmetatarsal amputation site has healed very well and is almost completely closed. I advised him that he no longer needs to use a protective bag on his foot while showering. We discussed completing the paperwork for his new prosthesis to ensure he receives it. I explained the plan to order a surveillance arterial ultrasound of his left leg in about three months to monitor blood flow. I recommended he return for a follow-up visit in three months. Coding Level of Care Code Est Pt Level 4 (32996) Diagnoses PAD (peripheral artery disease) I73.9
== END 2025-09-08 10:20 | disposition home or self-care (01) ==
LOC: HO.HVS 09:58
PROVIDERS: Visit Provider Surgery Vascular Surgery
DX: I73.9 Peripheral vascular disease, unspecified (principal)
CPT/HCPCS: 99214